=== PATIENT | male | born 1955 | race Caucasian/White ===

== ENCOUNTER → 2017-12-03 15:19 | Outpatient (CLI) | payer MEDICAID, SELFPAY ==
[2017-12-03 16:20] LABS: Abs Immature Grans 0.03 k/cumm (0.0-0.09); Absolute Basophil Count 0.04 k/cumm (0.0-0.2); Absolute Lymphocyte Count 3.13 k/cumm (1.2-3.4); Absolute Monocyte Count 0.88 k/cumm (0.11-0.7); Absolute Neutrophil Count 5.21 k/cumm (1.2-6.7); Basophils % 0.4; Eosinophils % 3.1; HCT 43.6 % (40.0-50.0); HGB 14.9 g/dL (13.5-17.5); Immature Grans % 0.3; Lymphocytes % 32.6; Mean Corp. HGB Concentration 34.2 g/dL (32.0-36.0); Mean Corpuscular Hemoglobin 32.1 pg (27.0-33.0); Mean Platelet Volume 9.8 fL (8.0-11.0); Monocytes % 9.2; Neutrophils % 54.4; Platelet Count 252 x1000/uL (130-400); RBC 4.64 m/cumm (4.50-6.00); RBC Distribution Width 15.2 % (11.8-14.1); White Blood Cell Count 9.59 k/cumm (4.4-10.8)
[2017-12-03 16:51] LABS: ALT 24 U/L (12-78); AST 22 U/L (15-37); Albumin 4.5 g/dL (3.4-5.0); Alkaline Phosphatase 89 U/L (46-116); Anion Gap 14.4 mmol/L (3-11); BUN 19 mg/dL (7-18); Bilirubin, Total 0.6 mg/dL (0.2-1.0); CO2 21.6 mmol/L (21.0-32.0); Chloride 102 mmol/L (98-107); Estimated GFR 44.02 (mL/min/1.73m2); Glucose 131 mg/dL (70-100); Potassium 4.1 mmol/L (3.5-5.1); Sodium 138 mmol/L (136-145); Total Protein 7.8 g/dL (6.4-8.2)
[2017-12-03 17:31] LABS: ESR 22 MM/HR (1-20)
== END ==
PROVIDERS: PCP Internal Medicine; Visit Provider Internal Medicine
DX: K65.1 Peritoneal abscess (principal); I10 Essential (primary) hypertension
CPT/HCPCS: 36415; 80053; 85652; 85025

== ENCOUNTER 2019-12-17 19:05 | Outpatient (REF) | payer SELFPAY ==
[2019-12-17 19:50] LABS: CREATININE 1.67 mg/dL (0.70-1.30); Estimated GFR 41.63 (mL/min/1.73m2); Potassium 4.8 mmol/L (3.5-5.1)
[2019-12-17 20:09] LABS: Hemoglobin A1C 5.6 % (3.8-5.6)
== END 2019-12-17 19:25 ==
LOC: LBN 19:05
PROVIDERS: PCP Nurse Practitioner; Visit Provider Nurse Practitioner
DX: I10 Essential (primary) hypertension (principal); Z13.1 Encounter for screening for diabetes mellitus
CPT/HCPCS: 82565; 83036; 84132

== ENCOUNTER 2020-02-22 18:21 | Inpatient (IN) | payer MEDICAID, SELFPAY ==
[2020-02-22 18:32] VITALS: BP 144/93; PULSE 117; RESP 20; TEMP 36.1; O2SAT 96
--- NOTE | 2020-02-22 18:53 | DI.CT_ITS ---
EXAM: CT ABDOMEN PELVIS WO CLINICAL HISTORY: Lower abd pain TECHNIQUE: COMPARISON: CT ABD PELVIS WO CONTRAST from 04/27/2017 FINDINGS: CT examination of the abdomen and pelvis was performed oral contrast administration. Images obtained through the lung bases show some apparent atelectasis or scarring in the left lung base. There is probable hepatic steatosis. The liver has mildly nodular contour raising the possibility of cirrhosis. No biliary dilatation. There does appear to be cholelithiasis. Pancreas grossly unrema rkable. Mild enlargement of a celiac lymph node at about 20 millimeters. Spleen is unremarkable in appearance. Abdominal aorta is of normal diameter. No significant abdominal wall hernia. No retroperitoneal adenopathy identified. Adrenals appear normal bilaterally. There is tiny nonobst ructing left renal calculus. Probable bilateral renal cortical scarring and cortical thinning. No h ydronephrosis. Urinary bladder is nearly empty. Appendix is normal. There is no gross bowel dilatation to suggest obstruction. There is marked wall thickening long segment of the sigmoid colon with marked associated pericolonic fat stranding and in creased radiodensity in the associated mesentery. There are some small gas collections in the mesent cathy suggesting a localized perforation. No free air in the peritoneal cavity. No gross abscess form ation at this time. IMPRESSION: Findings consistent with acute diverticulitis of the sigmoid colon with apparent locally contained sm all gas collections in the adjacent mesentery. No abscess formation or obstruction. RADIATION DOSE DELIVERED: 1,666.62mGy.cm Total DLP
--- NOTE | 2020-02-22 18:54 | ED.GENADUL_ITS ---
Discharge Plan Disposition Patient Disposition: [facility] INPATIENT Condition: Improving Discharge Details Clinical Impression: Diverticulitis of sigmoid colon Primary Care Provider: Ingrid Joya ED Provider: Syed Esteban Home Meds and New Rx's Prescriptions: No Action lisinopril 40 mg tablet 40 mg PO DAILY Qty: 90 RF: 3 pseudoephedrine HCl [Sudafed 12 Hour] 120 MG tablet extended release 120 mg PO PRN PRNRF: 0 naproxen sodium [Aleve] 220 MG capsule 3 tab PO PRN PRNRF: 0 Medical Decision Making 64-year-old male presents from home. 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 Since that time has been constipated & has had diffuse, constant pain from his umbilicus to his pelvis. He arrives to the ER afebrile but tachycardic and in some pain. He has diffuse abdominal tenderness on exam and defers a rectal exam. D ifferential diagnosis includes ileus, bowel obstruction, diverticulitis, perforated ulcer. Patient IV access established, screening labs obtained he is referred for CT images. Patient's renal function has progressively worsened over time of today's BUN is 22 with creatinine of 2.0 and a GFR of 32. His white count is elevated at 16 with left shift present. CT reveals acute sigmoid diverticulitis without evidence of perforation. Patient's pain improved following administration of a single aliquot of hydromorphone. Given his acute renal insufficiency, parenteral pain med requirement, and had acute diverticulitis, will admit to Dr. Butts's service. Given the patient's poor renal function, I feel Zosyn is a reasonable antibiotic choice with the potential for the patient to transition to oral Augmentin. HPI General Mode of arrival: ambulatory . Date/Time Provider Initiated Documentation: 02/22/20 18:25 . Limitations to Documentation: no limitations . Information obtained by: patient . History of Present Illness 64 year old M presents to the emergency department with the chief complaint of Lower abdominal pain since ., described as moderate and severe, Quality is described as dull and constant, and is localized to the abdomen. Patient reports no radiation. Patient started experiencing this day(s) and it has been constant. Rest improves symptom(s), Movement worsens symptoms . Patient notes other (Constipated); denies fever/chills and loss of appetite. Patient did receive the following treatments prior to arrival, none Related Data Home Medications Medication Instructions Recorded Confirmed naproxen sodium [Aleve] 3 tab PO PRN PRN 04/27/17 02/22/20 pseudoephedrine HCl [Sudafed 12 120 mg PO PRN PRN 04/27/17 02/22/20 Hour] lisinopril 40 mg tablet 40 mg PO DAILY #90 tab-cap 09/15/19 02/22/20 Previous Rx's Medication Instructions Recorded lisinopril 40 mg tablet 40 mg PO DAILY #90 tab-cap 09/15/19 Allergies Allergy/AdvReac Type Severity Reaction Status Date / Time pollen extracts Allergy Mild runny Verified 02/22/20 17:52 nose, watery eyes General Stated Complaint: Abd Prob CECY: 3 Review of Systems Narrative: Urgency to urination. 6 systems reviewed and otherwise negative [facility] Medical History History of tobacco use Intra-abdominal abscess (06/14/17) No treatment for this presently. Loculated pleural effusion (06/14/17) Retroperitoneal abscess (06/14/17) Family History Family history Diabetes CAD (coronary artery disease) Mother , age 83 Brain tumor Father , age 87 Asthma Sister No problems noted. Sister No problems noted. Sister No problems noted. Brother No problems noted. Daughter No problems noted. Daughter No problems noted. Maternal Grandfather , age 97 pneumonia No problems noted. Paternal Grandfather , age 78 blood clot No problems noted. Maternal Grandmother , age 98 No problems noted. Paternal Grandmother , age 67 blood clot No problems noted. Son No problems noted. Social History Smoking/Tobacco Use Status: Current-Occasional Tobacco Type: cigars Alcohol Intake: current Alcohol Intake frequency: a few times a month Alcohol type: beer and hard liquor Drug use: Never Caregiver/Support person: No Household members: family Housing: house Communication Needs: None Pets and animals: No Sexually active: Yes Do you think of yourself as: straight/heterosexual Current gender identity: male What is your relationship status?: How often do you talk on the phone with friends or family?: decline to answer How often do you get together with friends or relatives?: three or more times per week How often do you attend mormon or confucianism services?: decline to answer Do you belong to any clubs or organized social groups?: decline to answer Panel score (0-1 are the most socially isolated patients): 1 What type of physical activity do you participate in: walking Frequency: 5-6 times per week Sheree/Shinto: None Special sheree needs: No Seatbelt use: sometimes Helmet use: Yes Helmet use: sometimes Drive intox or ride w/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 Pleasant, well groomed, interactive. HEAD: Normocephalic, atraumatic ENT: Mucous membranes moist, oropharynx unremarkable, External ear exam unremarkable EYES: PERRL, EOMI NECK: Full ROM, no ANTHONY, no menigismus CHEST/RESP: Nontender, clear to auscultation bilateral, no wheeze/rhonchi/rales CARDIOVASCULAR: Regular and slightly tachycardic, no murmur, rub robby. 2+ Rad pulse bilateral ABDOMEN: Distended, diffusely tender with mild rebound present, no mass. +Bowel sounds EXT: Full ROM, 1-2+ edema, no rash Neuro: Grossly normal neurologic exam, conversant, interactive. Psych: Speech fluent, thoughts congruent, affect normal
[2020-02-22 18:58] LABS: Abs Immature Grans 0.08 10^3/uL (0.0-0.06); Absolute Basophil Count 0.03 10^3/uL (0.0-0.2); Absolute Eosinophil Count 0.02 10^3/uL (0.0-0.7); Absolute Lymphocyte Count 1.19 10^3/uL (1.2-3.4); Absolute Monocyte Count 0.93 10^3/uL (0.1-0.8); Absolute Neutrophil Count 13.83 10^3/uL (1.2-6.7); Basophils % 0.2; Eosinophils % 0.1; HCT 42.6 % (40.0-50.0); HGB 14.5 g/dL (13.5-17.5); Immature Grans % 0.5; Lymphocytes % 7.4; MCH 33.3 pg (27.0-33.0); MCV 97.9 fL (80-95); MPV 9.2 fL (8.0-11.0); Monocytes % 5.8; Nucleated RBC 0 %; Platelet Count 240 10^3/uL (130-400); RBC 4.35 10^6/uL (4.36-5.78); RDW 13.5 % (11.8-14.1); RDW-SD 49.1 fL; WBC 16.08 10^3/uL (4.4-10.8)
[2020-02-22] MEDS: Normal Saline 1,000 ML 125 ML IV (19:01)
[2020-02-22 19:11] LABS: ALT 16 U/L (16-63); AST 12 U/L (15-37); Albumin 3.4 g/dL (3.4-5.0); Alkaline Phosphatase 77 U/L (46-116); Anion Gap 8.6 mmol/L (3-11); BUN 22 mg/dL (7-18); Bilirubin, Total 0.9 mg/dL (0.2-1.0); CO2 22.4 mmol/L (21.0-32.0); CREATININE 2.06 mg/dL (0.70-1.30); Calcium 9.1 mg/dL (8.5-10.1); Chloride 103 mmol/L (98-107); Estimated GFR 32.67 (mL/min/1.73m2); Glucose 147 mg/dL (74-106); Lipase 83 U/L (73-393); Magnesium 1.8 mg/dL (1.8-2.4); Potassium 3.9 mmol/L (3.5-5.1); Sodium 134 mmol/L (136-145); Total Protein 7.8 g/dL (6.4-8.2)
[2020-02-22] MEDS: Omnipaque 350 MG/ML 50 ML BTL IJ (19:22)
[2020-02-22] MEDS: Breeza Beverage 473 ML BTL PO ×2 (19:22→19:23)
[2020-02-22] MEDS: HYDROmorphone 2 MG/ML VIAL 0.5 MG IVP ×2 (19:32→21:55)
[2020-02-22 20:39] VITALS: BP 108/62; PULSE 99; RESP 16; TEMP 37.5; O2SAT 94
--- NOTE | 2020-02-22 21:16 | DI.VRAD_ITS ---
PROCEDURE INFORMATION: Exam: CT Abdomen And Pelvis Without Contrast Exam date and time: 02/22/2020 7:15 PM Age: 64 years old Clinical indication: Abdominal pain; Localized; Patient HX: Pain since 02/17, lower abdomen TECHNIQUE: Imaging protocol: Computed tomography of the abdomen and pelvis without contrast. COMPARISON: CT ABD PELVIS WO CONTRAST 27/04/2017 13:22 FINDINGS: Lungs: Reticular scarring versus atelectasis left lower lobe. Liver: Hepatic steatosis. Gallbladder and bile ducts: Cholelithiasis. Pancreas: Normal. No ductal dilation. Spleen: Normal. No splenomegaly. Adrenal glands: Normal. No mass. Kidneys and ureters: Bilateral perirenal fat infiltration. Left nephrolithiasis. Stomach and bowel: Contrast distended stomach. Diverticulitis of the sigmoid colon. Infiltration of the sigmoid pericolonic fat and pelvic side wall. Appendix: No evidence of appendicitis. Intraperitoneal space: Infiltration of the mesenteric fat. No free air. Vasculature: Unremarkable. No abdominal aortic aneurysm. Lymph nodes: Shoddy retroperitoneal adenopathy. Urinary bladder: Contracted bladder. Reproductive: Unremarkable as visualized. Bones/joints: Multilevel degenerative changes of the thoracic and lumbar spine. Soft tissues: Umbilical hernia. IMPRESSION: 1. Acute diverticulitis of the sigmoid colon. 2. Multiple additional findings as discussed above. Dictated and Authenticated by: Reba Holloway MD. Ordering:RICKI Lynch MD
--- NOTE | 2020-02-22 21:42 | W.PM.HP.N ---
Date of service: 02/22/20 Time of Service: 21:42 Assessment and Plan Assessment and plan (1) Diverticulitis of sigmoid colon: Status: Acute Assessment and plan: Diverticulitis. Will treat with Zosyn, bowel rest, IVF and prn analgesics. Will hold TRAM until clear that hemodynamics not unstable. History of Present Illness History of Present Illness Chief Complaint: abdominal pain Narrative: 64 male reports 3-4 days lower abd pain. Continuous, no radiation, no palliative or provocative factors. Does endorse a degree of anorexia. No BM since. In ER temp 37.5 noted, lower abd tenderness, white count [address] showing tortuous sigmoid with diverticulitis. Received Dilaudid with good relief and ordered for dose Zosyn. Admitted for further management. Review of Systems All systems reviewed & are unremarkable except as noted in HPI and below PFSH Medical History History of tobacco use Intra-abdominal abscess (06/14/17) No treatment for this presently. Loculated pleural effusion (06/14/17) Retroperitoneal abscess (06/14/17) Family History Family history Diabetes CAD (coronary artery disease) Mother , age 83 Brain tumor Father , age 87 Asthma Sister No problems noted. Sister No problems noted. Sister No problems noted. Brother No problems noted. Daughter No problems noted. Daughter No problems noted. Maternal Grandfather , age 97 pneumonia No problems noted. Paternal Grandfather , age 78 blood clot No problems noted. Maternal Grandmother , age 98 No problems noted. Paternal Grandmother , age 67 blood clot No problems noted. Son No problems noted. Social History Smoking/Tobacco Use Status: Current-Occasional Tobacco Type: cigars Alcohol Intake: current Alcohol Intake frequency: a few times a month Alcohol type: beer and hard liquor Drug use: Never Caregiver/Support person: No Household members: family Housing: house Communication Needs: None Pets and animals: No Sexually active: Yes Do you think of yourself as: straight/heterosexual Current gender identity: male What is your relationship status?: How often do you talk on the phone with friends or family?: decline to answer How often do you get together with friends or relatives?: three or more times per week How often do you attend restoration or zoroastrianism services?: decline to answer Do you belong to any clubs or organized social groups?: decline to answer Panel score (0-1 are the most socially isolated patients): 1 What type of physical activity do you participate in: walking Frequency: 5-6 times per week Sheree/Restoration: None Special sheree needs: No Seatbelt use: sometimes Helmet use: Yes Helmet use: sometimes 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 Do you feel safe at home: Yes Do you feel safe in your relationship?: Yes Meds Home Medications and Allergies Home Medications Medication Instructions Recorded Confirmed Type naproxen sodium [Aleve] 3 tab PO PRN PRN 04/27/17 02/22/20 History pseudoephedrine HCl [Sudafed 12 120 mg PO PRN PRN 04/27/17 02/22/20 History Hour] lisinopril 40 mg tablet 40 mg PO DAILY #90 tab-cap 09/15/19 02/22/20 Rx Allergies Allergy/AdvReac Type Severity Reaction Status Date / Time pollen extracts Allergy Mild runny Verified 02/22/20 17:52 nose, watery eyes Exam Narrative Exam Narrative: 108/62, 99, 37.5, 16, 94 & RA. HEENT unremarkable; neck supple; lungs clear; heart RRR; abdomen +BS, some guarding, fairly diffuse tenderness but maximal suprapubic with some rebound; neuro Ox3, nonfocal Results Labs Result diagrams: 02/22/20 18:50 02/22/20 18:50 Labs: Laboratory Results - last 24 hr 02/22/20 02/22/20 02/22/20 18:50 18:50 18:50 WBC 16.08 H RBC 4.35 L Hgb 14.5 Hct 42.6 MCV 97.9 H MCH 33.3 H MCHC 34.0 RDW 13.5 Plt Count 240 MPV 9.2 Immature Gran % 0.5 Neutrophils % 86.0 Lymphocytes % 7.4 Monocytes % 5.8 Eosinophils % 0.1 Basophils % 0.2 Nucleated RBC % 0 Absolute Neutrophils 13.83 H Absolute Lymphocytes 1.19 L Absolute Monocytes 0.93 H Absolute Eosinophils 0.02 Absolute Basophils 0.03 VBG Lactate 1.0 Sodium 134 L Potassium 3.9 Chloride 103 Carbon Dioxide 22.4 Anion Gap 8.6 BUN 22 H Creatinine 2.06 H Estimated GFR/1.73 m2 32.67 Glucose 147 H Calcium 9.1 Magnesium 1.8 Total Bilirubin 0.9 AST 12 L ALT 16 Alkaline Phosphatase 77 Total Protein 7.8 Albumin 3.4 Lipase 83 Last Vital Signs Temp 37.5 C 02/22/20 20:39 Pulse 99 H 02/22/20 20:39 Resp 16 02/22/20 20:39 BP 108/62 02/22/20 20:39 Pulse Ox 94 02/22/20 20:39 COVID-19 Screening Have you,or household,traveled outside [place] in last 14 days?: No
[2020-02-22] MEDS: PIPERACILLIN/TAZO 3.375 GM in Normal Saline 50 ML IVPB (21:58)
[2020-02-22 21:59] VITALS: BP 133/79; PULSE 104; RESP 18; TEMP 37; O2SAT 94
[2020-02-22 22:10] LABS: Bilirubin Negative (Negative); Blood Trace-intact (Negative); Clarity Clear (Clear); Glucose Negative (Negative); Ketones Negative (Negative); Leukocyte Esterase Negative (Negative); Nitrite Negative (Negative); Specific Gravity >= 1.030 (1.005-1.025)
[2020-02-22 22:12] LABS: Bacteria Rare HPF (Negative); C & S Indicated? No/Sq. Contamination; Casts Negative LPF (Negative); Crystals Negative HPF (Negative); Epithelial Cells Moderate HPF (Negative); Mucus Negative (Negative); RBC 0-2 HPF (0-2); WBC 0-2 HPF (0-5)
[2020-02-22 22:42] VITALS: BP 89/56; PULSE 98; RESP 24; TEMP 37.4; O2SAT 93
[2020-02-22] MEDS: Lactated Ringers 1,000 ML 150 ML IV (23:24)
[2020-02-22] MEDS: Normal Saline Flush 10 ML SYR IVP (23:24)
[2020-02-22 23:26] VITALS: BP 110/60
[2020-02-23] MEDS: HYDROmorphone 2 MG/ML VIAL IVP ×3 (04:09→16:55)
[2020-02-23] MEDS: PIPERACILLIN/TAZO 3.375 GM in Normal Saline 50 ML IVPB ×4 (04:10→22:48)
[2020-02-23] MEDS: ACETAMINOPHEN 1,000 MG/100 ML BTL 400 MG IVPB (05:09)
[2020-02-23] MEDS: Lactated Ringers 1,000 ML 150 ML IV ×2 (06:02→19:54)
[2020-02-23 06:48] LABS: HCT 37.1 % (40.0-50.0); HGB 12.3 g/dL (13.5-17.5); MCH 33.1 pg (27.0-33.0); MCHC 33.2 % (32.0-36.0); MCV 99.7 fL (80-95); MPV 9.4 fL (8.0-11.0); Platelet Count 205 10^3/uL (130-400); RBC 3.72 10^6/uL (4.36-5.78); RDW 13.6 % (11.8-14.1); RDW-SD 50.1 fL; WBC 13.47 10^3/uL (4.4-10.8)
[2020-02-23 07:05] LABS: Anion Gap 6.4 mmol/L (3-11); BUN 22 mg/dL (7-18); CO2 24.6 mmol/L (21.0-32.0); CREATININE 2.07 mg/dL (0.70-1.30); Calcium 8.4 mg/dL (8.5-10.1); Chloride 104 mmol/L (98-107); Estimated GFR 32.49 (mL/min/1.73m2); Glucose 121 mg/dL (74-106); Potassium 3.7 mmol/L (3.5-5.1); Sodium 135 mmol/L (136-145)
[2020-02-23 08:16] VITALS: BP 87/50; PULSE 83; RESP 17; TEMP 36.8; O2SAT 97
[2020-02-23] MEDS: Normal Saline 1,000 ML 1000 ML IV (08:48)
[2020-02-23 10:25] VITALS: BP 95/60
[2020-02-23 12:45] VITALS: BP 118/72
[2020-02-23 13:09] LABS: COVID-19 RT-PCR UVMMC Result Negative (Negative)
--- NOTE | 2020-02-23 14:13 | PGE_ITS ---
Date of Service Date of service: 02/23/20 Time of Service: 14:13 Assessment and Plan Assessment and plan (1) Diverticulitis of sigmoid colon: Status: Acute Assessment and plan: + microperforation Cont Zosyn WBC count improving (2) Essential hypertension: Status: Chronic Assessment and plan: BP has been in the 80's to 90's range No antihypertensives. (3) CLARITA (acute kidney injury): Status: Acute Assessment and plan: On LR at 150ml/hr Gave 1L NS bolus this AM OK to have full liquid diet as tolerated. Monitor. Subjective Subjective Patient reports: feels better, bowel movement and afebrile; denies blood in stool, nausea, vomiting and shortness of breath Interval history since last seen: Does feel like he could drink fluids. Exam Const General: cooperative and no acute distress Nutritional Appearance: obese Orientation: alert and oriented x3 Resp Effort & Inspection: normal respiratory effort Auscultation: clear to auscultation bilaterally Cardio Jugular venous pressure: no JVD Rate: regular rate Rhythm: regular rhythm Heart Sounds: S1 normal and S2 normal GI Palpation: soft and tender suprapubicly Auscultation: hypoactive bowel sounds Extrem General: no calf tenderness and edema Laterality: bilateral (nonpitting) Objective Last Vital Signs Temp 36.8 C 02/23/20 08:16 Pulse 83 02/23/20 08:16 Resp 17 02/23/20 08:16 BP 95/60 L 02/23/20 10:25 Pulse Ox 97 02/23/20 08:16 Laboratory Results - last 24 hr 02/22/20 02/22/20 02/22/20 18:50 18:50 18:50 WBC 16.08 H RBC 4.35 L Hgb 14.5 Hct 42.6 MCV 97.9 H MCH 33.3 H MCHC 34.0 RDW 13.5 Plt Count 240 MPV 9.2 Immature Gran % 0.5 Neutrophils % 86.0 Lymphocytes % 7.4 Monocytes % 5.8 Eosinophils % 0.1 Basophils % 0.2 Nucleated RBC % 0 Absolute Neutrophils 13.83 H Absolute Lymphocytes 1.19 L Absolute Monocytes 0.93 H Absolute Eosinophils 0.02 Absolute Basophils 0.03 VBG Lactate 1.0 Sodium 134 L Potassium 3.9 Chloride 103 Carbon Dioxide 22.4 Anion Gap 8.6 BUN 22 H Creatinine 2.06 H Estimated GFR/1.73 m2 32.67 Glucose 147 H Calcium 9.1 Magnesium 1.8 Total Bilirubin 0.9 AST 12 L ALT 16 Alkaline Phosphatase 77 Total Protein 7.8 Albumin 3.4 Lipase 83 Urine Color Urine Clarity Urine pH Ur Specific [place] Urine Protein Urine Ketones Urine Blood Urine Nitrite Urine Bilirubin Urine Urobilinogen Ur Leukocyte Esterase Urine RBC Urine WBC Ur Epithelial Cells Urine Crystals Urine Bacteria Urine Casts Urine Mucus Ur Culture Indicated? Urine Glucose COVID-19 PCR Nasopharyn COVID-19 PCR Ref Test Perform Site 02/22/20 02/22/20 02/23/20 21:55 22:00 06:33 WBC RBC Hgb Hct MCV MCH MCHC RDW Plt Count MPV Immature Gran % Neutrophils % Lymphocytes % Monocytes % Eosinophils % Basophils % Nucleated RBC % Absolute Neutrophils Absolute Lymphocytes Absolute Monocytes Absolute Eosinophils Absolute Basophils VBG Lactate Sodium 135 L Potassium 3.7 Chloride 104 Carbon Dioxide 24.6 Anion Gap 6.4 BUN 22 H Creatinine 2.07 H Estimated GFR/1.73 m2 32.49 Glucose 121 H Calcium 8.4 L Magnesium Total Bilirubin AST ALT Alkaline Phosphatase Total Protein Albumin Lipase Urine Color Yellow Urine Clarity Clear Urine pH 6.0 Ur Specific [place] >= 1.030 H Urine Protein 100 H Urine Ketones Negative Urine Blood Trace-intact H Urine Nitrite Negative Urine Bilirubin Negative Urine Urobilinogen 1.0 H Ur Leukocyte Esterase Negative Urine RBC 0-2 Urine WBC 0-2 Ur Epithelial Cells Moderate Urine Crystals Negative Urine Bacteria Rare Urine Casts Negative Urine Mucus Negative Ur Culture Indicated? No/sq. contamination Urine Glucose Negative COVID-19 PCR Negative Nasopharyn COVID-19 PCR Not Applicable Ref Test Perform Site [facility] 02/23/20 06:33 WBC 13.47 H RBC 3.72 L Hgb 12.3 L D Hct 37.1 L MCV 99.7 H MCH 33.1 H MCHC 33.2 RDW 13.6 Plt Count 205 MPV 9.4 Immature Gran % Neutrophils % Lymphocytes % Monocytes % Eosinophils % Basophils % Nucleated RBC % Absolute Neutrophils Absolute Lymphocytes Absolute Monocytes Absolute Eosinophils Absolute Basophils VBG Lactate Sodium Potassium Chloride Carbon Dioxide Anion Gap BUN Creatinine Estimated GFR/1.73 m2 Glucose Calcium Magnesium Total Bilirubin AST ALT Alkaline Phosphatase Total Protein Albumin Lipase Urine Color Urine Clarity Urine pH Ur Specific [place] Urine Protein Urine Ketones Urine Blood Urine Nitrite Urine Bilirubin Urine Urobilinogen Ur Leukocyte Esterase Urine RBC Urine WBC Ur Epithelial Cells Urine Crystals Urine Bacteria Urine Casts Urine Mucus Ur Culture Indicated? Urine Glucose COVID-19 PCR Nasopharyn COVID-19 PCR Ref Test Perform Site
[2020-02-23 15:27] VITALS: BP 114/68; PULSE 93; RESP 24; TEMP 37.1; O2SAT 98
[2020-02-23] MEDS: Normal Saline Flush 10 ML SYR IVP ×3 (16:36→22:48)
--- NOTE | 2020-02-23 16:37 | INITIAL_ITS ---
- If Service Date Differs Date of service: 02/23/20 Time of Service: 11:30 Care Management Initial Assess REASON FOR HOSPITALIZATION:: Diverticulitis PAST MEDICAL HISTORY/PAST SURGICAL HISTORY:: History of tobacco use. Intra- abdominal abscess (. Loculated pleural effusion (06/14/17). Retroperitoneal abscess (06/14/17) PREVIOUS FUNCTIONAL STATUS/SOCIAL/FAMILY SUPPORTS:: Daniel lives with his sister in [place], [place]. 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 He states he is independent at baseline with all his needs. CURRENT FUNCTIONAL STATUS:: Daniel is not engaged at this time with CM he is having discomfort. He states he did not plan to be in the hospital he was working [facility] yesterday afternoon when his pain started. ADVANCE DIRECTIVES:: None on file is willing to review the forms, CM to provide Has patient been provided with info about the portal/API?: Yes Did the patient sign up for the portal?: No CODE STATUS:: Full Code INSURANCE COVERAGE / FINANCIAL ISSUES:: No insurance, patient states his income is over the guideline for Medicaid. CM will obtain a consent for community connections to assist with insurance needs. CURRENT HOME/COMMUNITY SERVICES/EQUIPMENT:: No current services PRIMARY CARE PHYSICIAN:: Ingrid Joya POTENTIAL DISCHARGE NEEDS:: Follow up with primary care, assistance with insurance, and medications at time of discharge. PATIENT/FAMILY EDUCATION NEEDS:: Discharge education, limitations and follow up plan of care including ask me three and self management. ANTICIPATED BARRIERS TO DISCHARGE:: Access to care status post hospital discharge, medications and outpatient treatment. Daniel will need assistance with navigating insurance and eval of prescription cost prior to discharge. TRANSPORTATION:: Via private car with family at time of discharge PLAN:: Daniel is receiving IV abx, and fluids. He is also rec. IV pain management and in need of close monitoring. He will be discharged home when medically ready his WBC has improved today. CM to continue to assess for ongong discharge needs, will obtain consent for insurance navigator and fax to [employer].
[2020-02-24] VITALS: BP 100/65; PULSE 104; RESP 24; TEMP 37.9; O2SAT 93
[2020-02-24] MEDS: Normal Saline Flush 10 ML SYR IVP (00:25)
[2020-02-24] MEDS: HYDROmorphone 2 MG/ML VIAL IVP (00:25)
[2020-02-24] MEDS: PIPERACILLIN/TAZO 3.375 GM in Normal Saline 50 ML IVPB ×2 (03:33→10:35)
[2020-02-24 07:08] LABS: Abs Immature Grans 0.07 10^3/uL (0.0-0.06); Absolute Basophil Count 0.03 10^3/uL (0.0-0.2); Absolute Eosinophil Count 0.07 10^3/uL (0.0-0.7); Absolute Lymphocyte Count 1.51 10^3/uL (1.2-3.4); Absolute Monocyte Count 0.66 10^3/uL (0.1-0.8); Basophils % 0.3; Eosinophils % 0.6; HCT 36.6 % (40.0-50.0); HGB 12.5 g/dL (13.5-17.5); Immature Grans % 0.6; Lymphocytes % 13.2; MCH 33.3 pg (27.0-33.0); MCHC 34.2 % (32.0-36.0); MCV 97.6 fL (80-95); MPV 9.8 fL (8.0-11.0); Monocytes % 5.8; Neutrophils % 79.5; Nucleated RBC 0 %; Platelet Count 204 10^3/uL (130-400); RBC 3.75 10^6/uL (4.36-5.78); RDW 13.6 % (11.8-14.1); RDW-SD 48.6 fL; WBC 11.45 10^3/uL (4.4-10.8)
[2020-02-24 07:22] LABS: ALT 8 U/L (16-63); AST 12 U/L (15-37); Albumin 2.7 g/dL (3.4-5.0); Alkaline Phosphatase 58 U/L (46-116); Anion Gap 8.9 mmol/L (3-11); BUN 21 mg/dL (7-18); CO2 23.1 mmol/L (21.0-32.0); CREATININE 1.77 mg/dL (0.70-1.30); Calcium 8.5 mg/dL (8.5-10.1); Chloride 102 mmol/L (98-107); Estimated GFR 38.92 (mL/min/1.73m2); Glucose 94 mg/dL (74-106); Potassium 3.8 mmol/L (3.5-5.1); Sodium 134 mmol/L (136-145); Total Protein 6.9 g/dL (6.4-8.2)
[2020-02-24 07:35] VITALS: BP 101/60; PULSE 90; RESP 20; TEMP 36.8; O2SAT 93
--- NOTE | 2020-02-24 09:06 | DSE_ITS ---
Date of service: 02/24/20 Time of Service: 12:59 DS: Diagnosis Discharge Diagnosis (1) Diverticulitis of sigmoid colon: Status: Acute (2) Essential hypertension: Status: Chronic (3) CLARITA (acute kidney injury): Status: Acute Discharge Plan Disposition Patient Disposition: HOME Condition: Improving Discharge Details Reason For Visit: DIVERTICULITIS Admit Date/Time: 02/22/20 21:51 Admit Provider: Meir Butts Attending Provider: Meir Butts [facility] Hospital Course: This is a 64 male who reported 3-4 days lower abd pain; Continuous, no radiation, no palliative or provocative factors. He did endorse a degree of anorexia. No BM since onset of pain. In the ER temp 37.5 noted, lower abd tenderness, white count [address] showing tortuous sigmoid with diverticulitis. Received Dilaudid with good relief. Zosyn initiated. In-house radiologist reading of the CT abd/pelvis the morning after admission indicated microperforation. Gen surgery suggested continuing current treatment. No indication of surgical intervention. His WBC count improved from 16.08 to 11.45 His pain improved with hydrocodone 7.5mg po prn. He will d/c on Augmentin 875mg po BID. Follow up with PCP in 1-2 weeks. His lisinopril should be held until PCP follow up due to low blood pressure readings currently. Home Meds and New Rx's Prescriptions: New hydrocodone-acetaminophen 7.5-325 mg Tablet 1 tab PO Q4H PRN PRNQty: 12 RF: 0 amoxicillin-pot clavulanate [Augmentin] 875-125 mg tablet 1 tab PO BID Qty: 20 RF: 0 Continued lisinopril 40 mg tablet 40 mg PO DAILY Qty: 90 RF: 3 pseudoephedrine HCl [Sudafed 12 Hour] 120 MG tablet extended release 120 mg PO PRN PRNRF: 0 naproxen sodium [Aleve] 220 MG capsule 3 tab PO PRN PRNRF: 0 Discharge Instructions Instructions: Diverticulitis (GEN) Activity:: Activity as Tolerated Equipment/Supplies:: No Equipment Needed Diet:: Low Sodium Discharge Orders Discharge Orders: Discharge Order (Routine); Ordered 02/24/20 Ordered By: Jose Lopez DS: Summary Status at Discharge Functional status at discharge: independent ambulation Overall status at discharge: patient is progressing back to baseline Mental Status: mental status grossly normal Speech and Movement: speech and movement normal Mood: congruent mood Affect: normal affect Exam Const General: cooperative and acute distress mild (lower abd discomfort) Eyes Sclera: sclerae normal EOM: EOM intact bilaterally Resp Effort & Inspection: normal respiratory effort Auscultation: clear to auscultation bilaterally Cardio Rate: regular rate Rhythm: regular rhythm Heart Sounds: S1 normal and S2 normal GI Inspection: large pannus and obesity Palpation: soft and tender suprapubicly; with no rebound tenderness Auscultation: normal bowel sounds Extrem General: no pedal edema and no calf tenderness Psych Mental Status: mental status grossly normal Speech and Movement: speech and movement normal Mood: congruent mood Affect: normal affect DS: Data Vitals/I&O Vitals and I&O: Vital Signs Temperature 36.8 C 02/24/20 07:35 Temperature Source Tympanic 02/24/20 07:35 Pulse 90 02/24/20 07:35 Pulse Rhythm Regular 02/24/20 07:35 Respiratory Rate 20 02/24/20 07:35 Respiratory Effort 02/24/20 07:35 Respiratory Depth Normal 02/24/20 07:35 Respiratory Pattern Normal 02/24/20 07:35 Blood Pressure 101/60 02/24/20 07:35 Blood Pressure Position Sitting 02/22/20 18:32 Pulse Oximetry 93 02/24/20 07:35 Oxygen Delivery Method Room Air 02/24/20 07:35 Oxygen Flow Rate 0 02/24/20 07:35 Pain Level 0 02/24/20 07:35 Intake & Output 02/23/20 02/23/20 02/24/20 11:59 23:59 11:59 Intake Total 2607.5 / 3535.0 927.5 / 3535.0 400 / 400 Output Total 290 / 740 450 / 740 Balance 2317.5 / 2795.0 477.5 / 2795.0 400 / 400 Intake: IV 2607.5 / 3295.0 687.5 / 3295.0 Oral 240 / 240 400 / 400 Output: Urine 290 / 740 450 / 740 Other: Urine Color Yellow Light Pura Yellow Urine Appearance Clear Clear Clear Urine Odor Normal Normal None Comment VOIDS IN BR INDEP. UP AT THIS TIME AND VOIDED AND HAD A DIARRHEA STOOL WHICH PER PT IS HIS NORMAL. BOTH UNSEEN BY THIS PT Stool Size Moderate Moderate Stool Characteristics Liquid Liquid Voiding Methods Toilet Urinal Toilet Data Completed and Pending Labs on day of discharge: Labs from last 24 hours 02/24/20 02/24/20 02/22/20 06:30 06:30 22:00 WBC 11.45 H RBC 3.75 L Hgb 12.5 L Hct 36.6 L MCV 97.6 H MCH 33.3 H MCHC 34.2 RDW 13.6 Plt Count 204 MPV 9.8 Immature Gran % 0.6 Neutrophils % 79.5 Lymphocytes % 13.2 Monocytes % 5.8 Eosinophils % 0.6 Basophils % 0.3 Nucleated RBC % 0 Absolute Neutrophils 9.10 H Absolute Lymphocytes 1.51 Absolute Monocytes 0.66 Absolute Eosinophils 0.07 Absolute Basophils 0.03 Sodium 134 L Potassium 3.8 Chloride 102 Carbon Dioxide 23.1 Anion Gap 8.9 BUN 21 H Creatinine 1.77 H Estimated GFR/1.73 m2 38.92 Glucose 94 Calcium 8.5 Total Bilirubin 1.0 AST 12 L ALT 8 L Alkaline Phosphatase 58 Total Protein 6.9 Albumin 2.7 L COVID-19 PCR Negative Nasopharyn COVID-19 PCR Not Applicable Ref Test Perform Site [facility] Medical History History of tobacco use Intra-abdominal abscess (06/14/17) No treatment for this presently. Loculated pleural effusion (06/14/17) Retroperitoneal abscess (06/14/17) Family History Family history Diabetes CAD (coronary artery disease) Mother , age 83 Brain tumor Father , age 87 Asthma Sister No problems noted. Sister No problems noted. Sister No problems noted. Brother No problems noted. Daughter No problems noted. Daughter No problems noted. Maternal Grandfather , age 97 pneumonia No problems noted. Paternal Grandfather , age 78 blood clot No problems noted. Maternal Grandmother , age 98 No problems noted. Paternal Grandmother , age 67 blood clot No problems noted. Son No problems noted. Social History Smoking/Tobacco Use Status: Current-Occasional Tobacco Type: cigars Smoking risk assessment performed?: Yes Alcohol Intake: current Alcohol Intake frequency: a few times a month Alcohol type: beer and hard liquor Drug use: Never Caregiver/Support person: No Household members: family Housing: house Communication Needs: None Pets and animals: No Sexually active: Yes Do you think of yourself as: straight/heterosexual Current gender identity: male What is your relationship status?: How often do you talk on the phone with friends or family?: decline to answer How often do you get together with friends or relatives?: three or more times per week How often do you attend christianity or presybeterian services?: decline to answer Do you belong to any clubs or organized social groups?: decline to answer Panel score (0-1 are the most socially isolated patients): 1 What type of physical activity do you participate in: walking Frequency: 5-6 times per week Sheree/Anabaptist: None Special sheree needs: No Seatbelt use: sometimes Helmet use: Yes Helmet use: sometimes Drive intox or ride w/intox driver starting gate: No Do you feel safe at home: Yes Do you feel safe in your relationship?: Yes
[2020-02-24] MEDS: Lactated Ringers 1,000 ML 150 ML IV (09:11)
--- NOTE | 2020-02-24 13:58 | PDOC.CMDIS ---
- If Service Date Differs Date of service: 02/24/20 Time of Service: 13:58 LACE Index Scoring Tool - Questions: Length of Stay (in days): 3 Acuity (Admit via E.D.?): Yes E.D. Visits: 1 - Answers: Total Score: 7 Risk of Readmission: Low Risk Care Management Discharge Reason for Hospitalization: Diverticulitis Discharge Plan: Daniel is being discharged home today he will continue his oral abx and pain management as outpatient. CM faxed prescriptions to [facility] in [place] total cost of prescriptions 42.00 which he states he can afford. A referral was faxed to [facility] for follow up r/t his insurance. He states he is over qualified for Medicaid based on his income. He states he is comfortable with discharge home. Patient/Family Education Needs: Discharge education, limitations and follow up plan of care including ask me three and self management.
== END 2020-02-24 15:40 | disposition home or self-care (01) | DRG 392 ==
LOC: ER 22:21 → MS 22:40
PROVIDERS: Family Medicine; Admitting Provider General Practice; Emergency Provider Emergency Medicine; PCP Nurse Practitioner; Visit Provider General Practice
DX: K57.32 Diverticulitis of large intestine without perforation or abscess without bleeding (principal); N17.9 Acute kidney failure, unspecified; I10 Essential (primary) hypertension; F17.290 Nicotine dependence, other tobacco product, uncomplicated
CPT/HCPCS: 36415; 80048; 80053; 83690; 85027; 96361; 96365; 96375; 96376; 99222; 99232; 99239; 99285; U0003; 74176; 81003; 81015; 83605; 83735; 85025; J0131; J2543; Q9967

== ENCOUNTER 2020-03-29 02:53 | Outpatient (CLI) | payer MEDICAID, SELFPAY ==
[2020-03-29 12:41] LABS: Anion Gap 10.7 mmol/L (3-11); BUN 25 mg/dL (7-18); CO2 22.3 mmol/L (21.0-32.0); CREATININE 1.57 mg/dL (0.70-1.30); Calcium 8.7 mg/dL (8.5-10.1); Chloride 101 mmol/L (98-107); Glucose 181 mg/dL (74-106); Potassium 4.4 mmol/L (3.5-5.1); Sodium 134 mmol/L (136-145)
[2020-03-29 12:43] LABS: Bilirubin Negative (Negative); Blood Negative (Negative); Glucose Negative (Negative); Ketones Negative (Negative); Leukocyte Esterase Negative (Negative); Nitrite Negative (Negative); pH 5.5 (5-8)
[2020-03-29 12:44] LABS: Clarity Clear (Clear)
== END 2020-03-29 03:13 ==
PROVIDERS: Emergency Medicine; PCP Nurse Practitioner; Visit Provider Nurse Practitioner
DX: I10 Essential (primary) hypertension (principal); N18.9 Chronic kidney disease, unspecified
CPT/HCPCS: 36415; 80048; 81003

== ENCOUNTER 2020-08-16 02:31 | Outpatient (CLI) | payer MEDICAID, SELFPAY ==
[2020-08-16 13:37] LABS: Calculated LDL 130 mg/dL (<100); Cholesterol 218 mg/dL (<200); HDL Cholesterol 26 mg/dL (40-60); Triglyceride 310 mg/dL (<150)
== END 2020-08-16 02:32 | disposition home or self-care (01) ==
LOC: LOS 02:32
PROVIDERS: PCP Nurse Practitioner; Visit Provider Nurse Practitioner
DX: E78.5 Hyperlipidemia, unspecified (principal)
CPT/HCPCS: 36415; 80061

== ENCOUNTER 2021-08-11 02:31 | Outpatient (CLI) | payer MEDICARE, MEDICAID, SELFPAY ==
[2021-08-11 13:36] LABS: Hemoglobin A1C 5.8 % (<5.7)
[2021-08-11 14:08] LABS: Calculated LDL 71 mg/dL (<100); Cholesterol 166 mg/dL (<200); HDL Cholesterol 29 mg/dL (40-60); Triglyceride 332 mg/dL (<150)
== END 2021-08-11 02:32 | disposition home or self-care (01) ==
LOC: LBO 02:32
PROVIDERS: PCP Nurse Practitioner; Visit Provider Nurse Practitioner
DX: E78.5 Hyperlipidemia, unspecified (principal); Z13.1 Encounter for screening for diabetes mellitus
CPT/HCPCS: 36415; 80061; 83036

== ENCOUNTER 2021-11-23 03:14 | Outpatient (CLI) | payer MEDICARE, MEDICAID, SELFPAY ==
[2021-11-23 13:09] LABS: Hemoglobin A1C 5.6 % (<5.7)
[2021-11-23 13:16] LABS: BUN 22 mg/dL (7-18); CREATININE 1.5 mg/dL (0.70-1.30); Calcium 9.2 mg/dL (8.5-10.1); Calculated LDL 42 mg/dL (<100); Chloride 104 mmol/L (98-107); Cholesterol 138 mg/dL (<200); Estimated GFR 46.82 (mL/min/1.73m2); Glucose 106 mg/dL (74-106); HDL Cholesterol 29 mg/dL (40-60); Potassium 4.5 mmol/L (3.5-5.1); Sodium 137 mmol/L (136-145); Triglyceride 337 mg/dL (<150)
== END 2021-11-23 03:15 | disposition home or self-care (01) ==
LOC: LOS 03:14
PROVIDERS: PCP Nurse Practitioner; Visit Provider Nurse Practitioner
DX: I10 Essential (primary) hypertension (principal); E78.5 Hyperlipidemia, unspecified; R73.03 Prediabetes; N18.9 Chronic kidney disease, unspecified
CPT/HCPCS: 36415; 80048; 80061; 83036

== ENCOUNTER 2022-01-19 00:46 | Outpatient (CLI) | payer MEDICARE, MEDICAID, SELFPAY ==
--- OUTSIDE RECORDS SUMMARY | 2022-01-19 01:22 | XMS_ITS | Encounter Summary ---
:1955 Author Organization [facility] [place] [address] Care Team Providers Name Role Phone Odalys Laird MD Primary Care Provider Encounter Details Date Type Department Care Team Description 06/07/2017 Orders Only Thoracic Surgery at [facility] Haroon Arcos, Pleural empyema [facility] [place] [address] [facility] [phone] Thoracic Surgery [place] [id number] (Wo rk) Social History Tobacco Use Types Packs/Day Years Used Date Former Smoker Cigarettes 4 22 04/28/1968 - 1 Smokeless Tobacco: Former User Chew Q uit: 04/28/2017 Comments: haven't used chew in a few wee [place] Alcohol Use Standard Drinks/Week Comments Yes 0 (1 standard drink = 0.6 oz pure alcoho l) occasional Alcohol Habits Answer Date Recorded How often do you have a drink containing alcohol? Not asked How many drinks containing alcohol do you have on a typical Not asked day when you are drinking? How often do you have six or more drinks on one occasion? No t asked Comment: occasional 04/28/2017 Sex Assigned at Date Recorded Not on file documented as of this encounter Plan of Treatment Not on filedocumented as of this encounter Visit Diagnoses Diagnosis Pleural empyema Empyema without mention of fistula documented in this encounter Care Teams Concrete Panel Installer Relationship Specialty Start Date End Date Odalys Laird MD PCP - General Internal Medicine 04/27/[address] [place] [address] documented as of this encounter
--- OUTSIDE RECORDS SUMMARY | 2022-01-19 01:22 | XMS_ITS | Encounter Summary ---
:1955 [place] [address] Care Team Providers Name Role Phone Odalys Laird MD Primary Care Provider Reason for Visit Auth/Cert Specialty Diagnoses / Procedures Referred By Contact Refer red To Contact Diagnoses Loculated pleural effusion PLEURAL EFFUSION empyema Procedures @THORACOSCOPY, SURG; W PART. DECORTICATION (WRVU 18.78) Referral ID Status Reason Start Date Expiration Date Visits Requ ested Visits Authorized [id number] 1 1 Encounter Details Date Type Department Care Team Description 06/08/2017 Anesthesia Event Main Operating Room Magan Cullen MD [facility] [place] [address] [facility] Odilon Degroot MD [facility] [place] [address] [facility] [place] [address] Anesthesia Record Procedure Summary Procedure Name Responsible Anesthesia Start Anesthesia Stop Anesthesiologist Time Time @THORACOSCOPY, SURG; W Magan Aguiar MD 06/08/17 1337 06/08 1642 TOTAL DECORTICATION (WRVU 29.13) (Left Chest) Events Date Time Event Comment 06/08/2017 1321 1337 AN Verify 1337 Start 1337 An Start Data 1342 An Start Data 1348 An Induction 1350 An Intubation 1350 FO Bronchoscopy 1353 Anesthesia Ready 1413 An one lung vent 1436 An Data Art 1542 An Data Art 1610 An Dual Lung Vent 1630 Extubation/LMA Out 1630 an stop data 1640 Recovery or ICU Handoff Patient care was transferred to the destination unit staff after review of the patient's medica l history, current anesthetic/surgi flores status and plan, according to the Provider Handoff Checklist. 1642 Stop Name Total fentaNYL 200 mcg Propofol 400 mg Rocuronium 50 mg PHENYLephrine 960 mcg Ondansetron 4 mg Neostigmine 2 mg Glycopyrrolate 0.4 mg Succinylcholine 200 mg piperacillin-tazobactam (ZOSYN) 3.375 g in dextrose 5% 50 mL 3.375 g Dexmedetomidine 44 mcg HYDROmorphone 0.4 mg Lactated Ringers 0 mL Lactated Ringers 500 mL Agents Name O2 Air N2O Sevoflurane (et) Blood No blood administrations on file. Lines, Drains, and Airways Type Details Placement Removal Drain/Device Site 05/28/17; 1411; Left; 05/28/17 1411 by posterior; flank; gravity; Aly Welsh, MEET Brenner; Sterile prep and drape; Lidocaine 1%; #12 Fr. All purpose drain to collection bag. ; Drain exchange due to cracked hub. Drain/Device Site 05/28/17; 1412; Left; 05/28/17 1412 by 8 1514 by anterior; gravity; Aly Morales, RN Leslie Maharaj RN Percarpio; Lidocaine 1%; (#12 Fr. all purpose drain); #12 Fr. all purpose drain to collection bag; Drain exchange.; 06/10/17; 1514 Incision 05/31/17; 1309; abdomen; 05/31/17 1309 by 1208 by 06/11/17; 1208 Keena Galo Ackerman, Kyle N, RN RN Drain/Device Site 05/31/17; 1400; Left; 05/31/17 1400 by 8 1208 by lower; abdomen; gravity; Patricia Rodriguez Ackerman, Kyle N, 06/11/17; 1208 RN RN Drain/Device Site 05/31/17; 1429; Left; 05/31/17 1429 by 8 1207 by lower; abdomen (# 2); Keena Galo Ack erman, Kyle N, collapsible closed device RN RN (19 Fr Ameya); 06/11/17; 1207 Drain/Device Site 05/31/17; 1439; Left; 05/31/17 1439 by 8 1207 by lower; abdomen (#1); Keena Galo Acke rman, Kyle N, collapsible closed device RN RN (19 Ameya); 06/11/17; 1207 PIV 06/07/17; 205; basilic 06/07/172058 by 8 2224 by vein (medial side of arm), Rosa Kwong, Kourtney Mckinney, right; nmzp-swy-mdavde JONES RN catheter system; 22 gauge, 1 in length; ROSA KWONG RN VAS; distraction, tolerated well, appears comfortable; 0; patient complaining that it is tender and sore to flush; site symptomatic, site care per policy/procedure, removed per policy/procedure, catheter/device intact; 06/08/17; 222 PIV 06/07/17; 2100; cephalic 06/07/17 2100 by 1741 by vein (lateral side of Rosa Kwong, Julio C Ackerman, arm), right; JONES RN [id number]-srs-xttdyb catheter system; 22 gauge, 1 in length; ROSA KWONG RN VAS; distraction, tolerated well, appears comfortable; 0; 06/08/17; 1741 ETT Mask Ventilation: Not 06/08/17 1350 by 06/08/17 1630 by Attempted (0); ETT Type: Odilon Degroot MD H oyt, Magan Fontanez MD Cuffed, Oral; Double Lumen: 37 Fr, Left; Indirect:Video (CMAC); Notes: Asleep, Pre-O2, Stylette, Cricoid Pressure; Attempts: 2 (Very anterior); Laryngoscopy Grade: 1; ETT Placement Verified By: Auscultation, Capnometry, Visual; Secured at Teeth: 31 cm; Inserted by: Dr. Degroot PIV 06/08/17; 1353; metacarpal 06/08/17 1353 by 05/30 05/16 1105 by vein (top of hand), left; Odilon Degroot MD Mallett, Sharon E, fqpf-zfq-ixhbom catheter RN system; 16 gauge; Dr. Degroot; site symptomatic, site care per policy/procedure, removed per policy/procedure, catheter/device intact; 06/09/17; 1105 PIV 06/08/17; 1401; metacarpal 06/08/17 1401 by 05/30 1741 by vein (top of hand), left; Odilon Degroot MD Martin, Andrew P, ejfy-hra-seyeqz catheter RN system; 16 gauge; 06/08/17; 1741 Incision 06/08/17; 1430; chest; 06/08/17 1430 by 06/11/17 1207 by laparoscopic punctures Jorge Conley RN Ackerma n, Kyle N, (specify); x3; 06/11/17; RN 1207 Chest Tube 06/08/17; 1623; Left; 06/08/17 1623 by 06/11/17 0915 by lateral; Superior Chest; Jorge Conley RN Acker man, Kyle N, 06/11/17; 0915 RN Chest Tube 06/08/17; 1624; Left; 06/08/17 1624 by 06/10/17 2308 by lateral; Inferior of the Jorge Conley RN Jerry, Katelyn D, two Chest tubes------ d/c RN on day shift unsure exact time; 06/10/17; 2308 Urethral Catheter 06/08/17; 1627; Physician 06/08/17 1627 by 02/13 1900 by order; intermittent Jorge Conley RN Conlogue, Samuel W, catheter; 100% silicone; RN 14; 1; 0; intraurethral Xylocaine gel; other (see comments); urethral catheter removed; 150cc urine (unknown time of removal.); 06/08/17; 1900 documented in this encounter Social History Tobacco Use Types Packs/Day Years Used Date Former Smoker Cigarettes 4 22 04/28/1968 - 1 Smokeless Tobacco: Former User Chew Q uit: 04/28/2017 Comments: haven't used chew in a few wee ks Alcohol Use Standard Drinks/Week Comments Yes 0 [...] on file documented as of this encounter OR Notes Anesthesia Postprocedure Evaluation - Magan Aguiar MD - 06/08/2017 5:14 PM EST [facility] Department of Anesthesiology Post-procedure Note Patient: Daniel Urena Procedure Summary Date Anesthesia Start Anesthesia Stop Room / Location 06/08/17 1337 1642 [facility] OR 22 / [facility] MAIN OR Procedure Diagnosis Surgeon Responsible Provider @THORACOSCOPY, SURG; W TOTAL DECORTICATION (WRVU 29.13) (Left Chest); BRONCHOSCOPY, DIAGNOSTIC (WRVU 2.78) (N/A Bronchus) Pleural empyema (empyema) Haroon Arcos MD Hoyt, Matthew J, MD All Anesthesia Providers: Anesthesiologist: Magan Aguiar MD Most Recent Vitals: 06/08/17 1700 BP: 108/71 Pulse: 82 Resp: 19 Temp: SpO2: 100% Pain Patient Location: PACU/[facility] Level of Consciousness: Awake and Alert Pain Management: Satisfactory Analgesia PONV: None Cardiovascular Status: At Baseline Respiratory Status: At Baseline Postoperative Fluid Status: Intravascular EUvolemia Possible Anesthetic Complications: NONE apparent at time of evaluation Final Primary Anesthesia Type: General (The anesthetic type performed was the same as planned.) Comments: Anesthesia Preprocedure Evaluation - Magan Aguiar MD - 06/08/2017 6:01 AM EST Pre-Anesthesia Evaluation for: Daniel Urena a 61 y.o. male. Procedure(s): @THORACOSCOPY, SURG; W PART. DECORTICATION (WRVU 18.78) BRONCHOSCOPY, DIAGNOSTIC (WRVU 2.78) Patient Active Problem List Diagnosis ??? Loculated pleural effusion ??? Abscess ??? Intra-abdominal abscess ??? Retroperitoneal abscess Past Medical History: Diagnosis Date ??? HTN (hypertension) ??? Obesity Past Surgical History: Procedure Laterality Date ??? ORCHIOPEXY Left ??? PRO LAP, ABD/PERIT/OMENTUM, UNLIST N/A 05/31/2017 LAPAROSCOPY, DRAINAGE ABD ABSCESS (WRVU *) performed by Gilson Mcgee MD at [facility] MAIN OR ??? PRO LAP, ABD/PERIT/OMENTUM, UNLIST N/A 05/31/2017 LAPAROSCOPY, TUMOR EXCISION, RETROPERITONEAL (WRVU *) performed by Gilson Mcgee MD at [facility] MAIN OR Social History Substance Use Topics ??? Smoking status: Former Smoker Packs/day: 4.00 Years: 22.00 Types: Cigarettes Start date: 04/28/1968 Quit date: 04/28/1986 ??? Smokeless tobacco: Former User Types: Chew Quit date: 04/28/2017 Comment: haven't used chew in a few weeks ??? Alcohol use Yes Comment: occasional History Drug Use No Allergies Allergen Reactions ??? Mold Other (See Comments) Drainage in his eyes, sinuses congest. ??? Tylenol [Acetaminophen] Causes acid reflux Medications: MAR and/or home medications have been reviewed. Physical Exam: Most Recent Vitals: 06/08/17 0223 BP: 128/80 Pulse: Resp: 18 Temp: 37.2 ??C (99 ??F) SpO2: 92% Body mass index is 49.32 kg/(m^2). Weight: (!) 151.5 kg (334 lb) Airway Assessment: Mallampati: III TM distance: >3 FB Neck ROM: full Cardiovascular Assessment: cardiovascular exam normal Pulmonary Assessment: (+) rhonchi Dental Assessment: Misc Assessment: IV access: Peripheral line Anesthesia Plan: ASA 3 general, with a(n) intravenous induction 61 y.o. male with pmh significant for morbid obesity, hypertension, Previous retroperitoneal and intraabdominal abscesses (unknown origin, s/p IR and Laparoscopic drainage), now presenting with left lung empyema and small pneumothorax for left thoracoscopy. 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 Patient's documented history was negative for seizures, CVA, severe cardiopulmonary disease, GERD, hepatic/renal disease, coagulopathy, or recent URI/RAD. EKG: NSR Lab Results Component Value Date HGB 10.0 (L) 06/08/2017 PLATELET 332 06/08/2017 INR 1.1 05/10/2017 NA 136 06/01/2017 K 4.3 06/01/2017 CREATININE 1.19 06/01/2017 06/07/17 05/25/17 1945 0846 ABORH A Pos A Pos Allergies: -- Mold -- Other (See Comments) -- Drainage in his eyes, sinuses congest. -- Tylenol (Acetaminophen) -- Causes acid reflux NPO Status: Having gerd sxs Anesthetic hx: No reported prior complications with anesthesia Airway hx: Mask w/ adjunct. 2 attempts intubation by CMAC Anesthetic Plan: GA with MANNY Standard ASA monitoring Adequate IV access Region - Intrathoracic Non-Cardiac Informed Consent: Anesthetic plan and risks discussed with patient. Use of blood products discussed with patient who consented to blood products. Plan discussed with resident and attending. PAT Staff Note documented in this encounter Plan of Treatment Not on filedocumented as of this encounter Visit Diagnoses Not on filedocumented in this encounter Administered Medications Inactive Administered Medications - up to 3 most recent administrations Medication Order MAR Action Action Date Dose Rate Site dexmedetomidine (PRECEDEX) Given 06/08/2017 3:58 PM EST 12 mcg injection PRN, Starting on 06/08/17 at 1535, Until 06/08/17 at 1714, Anesthesia Intra-op, Routine Given 06/08/2017 3:53 PM EST 8 mcg Given 06/08/2017 3:46 PM EST 8 mcg fentaNYL 50 mcg/mL multi-dose injection Given 06/08/2017 2:55 PM EST 100 mcg PRN, Starting on 06/08/17 at 1337, Until 06/08/17 at 1714, Pain, Anesthesia Intra-op, Routine Given 06/08/2017 1:37 PM EST 100 mcg glycopyrrolate (ROBINUL) multi-dose inje ction Given 06/08/2017 4:11 PM EST 0.4 mg PRN, Starting on 06/08/17 at 1611, Until 06/08/17 at 1714, Anesthesia Intra-op, Routine HYDROmorphone (DILAUDID) injection Given 06/08/2017 4:13 PM EST 0.4 mg PRN, Starting on 06/08/17 at 1613, Until 06/08/17 at 1714, Pain, Anesthesia Intra-op, Routine lactated Ringers infusion New Bag 06/08/2017 1:37 PM EST CONTINUOUS PRN, Starting on 06/08/17 at 1337, Until 06/08/17 at 1714, Anesthesia Intra-op lactated Ringers infusion New Bag 06/08/2017 1:37 PM EST CONTINUOUS PRN, Starting on 06/08/17 at 1337, Until 06/08/17 at 1714, Anesthesia Intra-op neostigmine (BLOXIVERZ) injection Given 06/08/2017 4:11 PM EST 2 mg PRN, Starting on 06/08/17 at 1611, Until 06/08/17 at 1714, Anesthesia Intra-op, Routine ondansetron (ZOFRAN) injection Given 06/08/2017 4:11 PM EST 4 mg PRN, Starting on 06/08/17 at 1611, Until 06/08/17 at 1714, Nausea, Anesthesia Intra-op, Routine PHENYLephrine in NS (PF) (VERITO-SYNEPHRINE) Given 06/08/2017 3:41 PM EST 160 mcg 0.8 mg/10 mL (80 mcg/mL) multi-dose injection Syrg PRN, Starting on 06/08/17 at 1357, Until 06/08/17 at 1714, Anesthesia Intra-op, Routine Given 06/08/2017 2:22 PM EST 160 mcg Given 06/08/2017 2:15 PM EST 160 mcg piperacillin-tazobactam (ZOSYN) Given 06/08/2017 10:00 PM 3.375 g 12.5 mL/hr 3.375 g in dextrose 5% 50 mL EST 3.375 g, Intravenous, EVERY 8 HOURS, First dose on Sat06/07/17 at 1930, Until Discontinued, Administer over 4 Hours, Warning Vesicant/Irritant Medication , Indication for (Active or Suspected): Pneumonia ([facility]) Given 06/08/2017 1:53 PM EST 3.375 g Given 06/08/2017 12:23 PM EST 3.375 g 12.5 mL/hr propofol (DIPRIVAN) 10 mg/mL bolus injection Given 8 1:54 PM EST 50 mg (Anesthesia) PRN, Starting on 06/08/17 at 1348, Until 06/08/17 at 1714, Anesthesia Intra-op Given 06/08/2017 1:48 PM EST 350 mg rocuronium (ZEMURON) multi-dose injectio n Given 06/08/2017 3:19 PM EST 20 mg PRN, Starting on 06/08/17 at 1442, Until 06/08/17 at 1714, Anesthesia Intra-op, Routine Given 06/08/2017 2:42 PM EST 30 mg succinylcholine (ANECTINE) injection Given 06/08/2017 1:48 PM EST 200 mg PRN, Starting on 06/08/17 at 1348, Until 06/08/17 at 1714, Anesthesia Intra-op, Routine documented in this encounter Care Teams Eng[employer] Mold Relationship Specialty Start Date End Date Odalys Laird MD PCP - General Internal Medicine 04/27/[address] [place] [address] [address] [facility] [address] [place] [address] documented as of this encounter
--- OUTSIDE RECORDS SUMMARY | 2022-01-19 01:22 | XMS_ITS | Clinical Summary ---
:1955 Author Organization [facility] [place] [address] Care Team Providers Name Role Phone Odalys Laird MD Primary Care Provider Allergies Active Allergy Reactions Severity Noted Date Comments Mold Other (See Comments) 05/31/2017 Drainag e in his eyes, sinuses congest. Medications Medication Sig Dispensed Refills Start Date End Date Status naproxen sodium Take 220 mg by 0 Active (ANAPROX) 220 mg Tablet mouth as needed. Active Problems Problem Noted Date Loculated pleural effusion 06/07/2017 Abscess 05/24/2017 Intra-abdominal abscess 05/10/2017 Retroperitoneal abscess 04/27/2017 Social History Tobacco Use Types Packs/Day Years Used Date Former Smoker Cigarettes 4 22 04/28/1968 - 1 Smokeless Tobacco: Former User Chew Q uit: 04/28/2017 Tobacco Cessation: Counseling Given: Yes Comments: haven't used chew in a few wee de Alcohol Use Standard Drinks/Week Comments Yes 0 [...] Assigned at Date Recorded Not on file Last Filed Vital Signs Vital Sign Reading Time Taken Comments Blood Pressure 148/98 06/28/2017 10:05 AM EST Pulse 109 06/28/2017 10:05 AM EST Temperature 36.7 ??C (98 ??F) 06/28/2017 10:05 AM EST Respiratory Rate 20 06/28/2017 10:05 AM EST Oxygen Saturation 99% 06/28/2017 9:03 AM EST Inhaled Oxygen Concentration - - Weight 155.6 kg (343 lb) 06/28/2017 9:03 AM EST Height 175 cm (5' 8.9) 06/28/2017 9:03 AM EST Body Mass Index 50.8 06/28/2017 9:03 AM EST Plan of Treatment Health Maintenance Due Date Last Done Comments Covid-19 Vaccine (#1) 09/23/1960 Hepatitis C Screening 09/23/1973 Lipid Screening 09/23/1973 Tdap adult 09/23/1974 Tetanus vaccine 09/23/1974 Colonoscopy 09/23/2000 Zoster vaccine (1 of 2) 09/23/2005 Advance Directive 09/23/2010 Pneumoccocal Vaccine: 65+ (1 - PCV) 09/23/2020 Influenza (Flu) vaccine (1 of 1 - Influenza standard 12/28/2021 series) Insurance Payer Benefit Plan / Subscriber ID Effective Dates Phone Addre ss Type Group [place] [id number] 2019-Prese [phone] [address] [place] [address] [place] [id number] 2017-Presen [id number] [address] [place] [address] Advance Directives Latest Code Status on File Code Status Date Activated Date Inactivated Comments Full Code 06/07/2017 6:25 PM 06/11/2017 2:34 PM Does patient have capacity to make decision: Yes Full Code 05/31/2017 11:47 AM 06/01/2017 7:08 PM Does patient have capacity to make decision: Yes Full Code 05/28/2017 1:09 PM 05/29/2017 4:36 AM Does patient have capacity to make decision: Yes Full Code 05/24/2017 6:00 PM 05/27/2017 7:56 PM Does patient have capacity to make decision: Yes Full Code 05/10/2017 12:36 PM 05/16/2017 12:44 PM Does patient have capacity to make decision: Yes Care Teams Business Rules Developer Relationship Specialty Start Date End Date Odalys Laird MD PCP - General Internal Medicine 04/27/[address] [place] [address]
--- OUTSIDE RECORDS SUMMARY | 2022-01-19 01:22 | XMS_ITS | Encounter Summary ---
:1955 Author Organization [facility] [place] [address] Care Team Providers Name Role Phone Odalys Laird MD Primary Care Provider Reason for Visit Reason Onset Date Comments Post Hospital Discharge 06/12/2017 Hospital DC foll ow up call. Encounter Details Date Type Department Care Team Description 06/12/2017 Telephone Thoracic Surgery at [facility], Pos t Hospital Discharge [facility] (Hospital DC follow up [facility] [place] [address] Social History Tobacco Use Types Packs/Day Years [...] on file documented as of this encounter Miscellaneous Notes Telephone Encounter - Flora Barr, RN - 06/12/2017 10:10 AM EST Thoracic Surgery Nursing Post-operative Follow up: Admission date and DC date 06/11/17 Hx: Loculated pleural effusion THORACOSCOPY, SURG; W TOTAL DECORTICATION POD#: 3 General statement: I feel pretty good. Pain:denies pain at this time . GI :LBM today ,voiding frequently ,states this is not new for him. Respiratory:using IS at home ,aware of importance.Occasional productive cough when changing positions ,aware of adverse sx to report and where to call,denies increased shortness of breath. Activity: aware of need to increase activity daily. Integumentary:dressings remain intact to old chest tube sites,planning to remove dressings as per DCinstructions Plan: seeing PCP 06/14/17 ,aware of upcoming office visit with CXR prior 06/28/17 and will call sooner should he have any questions or concerns. documented in this encounter Plan of Treatment Not on filedocumented as of this encounter Visit Diagnoses Not on filedocumented in this encounter Care Teams Pastoral Ministries Professor Relationship Specialty Start Date End Date Odalys Laird MD PCP - General Internal Medicine 04/27/[address] [place] [address] [address] [place] [address] documented as of this encounter
--- OUTSIDE RECORDS SUMMARY | 2022-01-19 01:22 | XMS_ITS | Encounter Summary ---
:1955 Author Organization [facility] [place] [address] Care Team Providers Name Role Phone Odalys Laird MD Primary Care Provider Reason for Visit Reason Onset Date Comments Labs Only 06/14/2017 BMP Order Encounter Details Date Type Department Care Team Description 06/14/2017 Telephone Thoracic Surgery at [facility] Michell Henson RN Labs Only (BMP Order) [place] [address] Social History Tobacco Use Types Packs/Day [...] this encounter Miscellaneous Notes Telephone Encounter - Michell Henson RN - 06/14/2017 2:42 PM EST Call to Dr. Haq's office to request BMP to be drawn at today's appointment. Message left on nurse line. Call from Dr. Haq's nurse stating patient is saying his drain can be pulled today at his appointment. Drain to be managed by Dr. Mcgee with general surgery at [facility] and NOT to be pulled by PCP. Confirmed order for BMP and will fax results to Thoracic Surgery office. documented in this encounter Plan of Treatment Not on filedocumented as of this encounter Visit Diagnoses Not on filedocumented in this encounter Care Teams Prenatal Nurse Relationship Specialty Start Date End Date Odalys Laird MD PCP - General Internal Medicine 04/27/[address] [place] [address] documented as of this encounter
--- OUTSIDE RECORDS SUMMARY | 2022-01-19 01:22 | XMS_ITS | Encounter Summary ---
:1955 Author Organization [facility] [place] [address] Care Team Providers Name Role Phone Odalys Laird MD Primary Care Provider Reason for Visit Reason Comments Follow-up Encounter Details Date Type Department Care Team Description 06/28/2017 Office Visit General Surgery at [facility], Retrop eritoneal abscess [facility] [address] [place] GENERAL SURGERY [id number] [place] [address] [phone] Social History Tobacco Use Types Packs/Day Years Used Date Former Smoker Cigarettes 4 22 04/28/1968 - 1 Smokeless Tobacco: Former User Chew Q uit: 04/28/2017 Comments: haven't used chew in a few wee la Alcohol Use Standard Drinks/Week Comments Yes 0 [...] on file documented as of this encounter Progress Notes Lane Bass MD - 06/28/2017 11:45 AM EST General Surgery Follow Up Appointment. Mr. Urena returns to clinic today. He reports feeling reasonably well overall. He is now 4 weeks s/p his retroperitoneal abscess drainage and 3 weeks from his decortication. He thinks he is feeling much better, but again he is very non-specific. No significant output from his remaining drain. About 5-10cc per da. No fevers, or cough. Has back pain (which he says is chronic). No chest pain or left flank pain On exam, There were no vitals taken for this visit. He appears in no acute distress Abdomen soft, NT/ND. Incisions well healed. Ameya with serous fluid in bulb- holding suction. CXR today shows post-operative changes Assessment/Plan: Mr. Urena is a 61 year old male who appears to have a resolved retroperitoneal abscess after IR and finally surgical drainage. This was complicated by a phrenic abscess and underwent decortication by Dr. Arcos. He recovered very well after this procedure and currently has no signs or symptoms of infection. His remaining drain has minimal output and the fluid appears serous- this was pulled in clinic today. Patient is interested in returning to work and I think this is reasonable. Will have patient return for follow up in a few months to ensure his continued recovery. LANE BASS MD documented in this encounter Plan of Treatment Not on filedocumented as of this encounter Visit Diagnoses Diagnosis Retroperitoneal abscess Other retroperitoneal abscess documented in this encounter Care Teams Blast Setter Relationship Specialty Start Date End Date Odalys Laird MD PCP - General Internal Medicine 04/27/[address] [place] [address] documented as of this encounter
--- OUTSIDE RECORDS SUMMARY | 2022-01-19 01:22 | XMS_ITS | Encounter Summary ---
:1955 [place] [address] Care Team Providers Name Role Phone Odalys Laird MD Primary Care Provider Reason for Visit Auth/Cert Specialty Diagnoses / Procedures Referred By Contact Refer red To Contact Diagnoses Loculated pleural effusion PLEURAL EFFUSION empyema Procedures @THORACOSCOPY, SURG; W PART. DECORTICATION (WRVU 18.78) Referral ID Status Reason Start Date Expiration Date Visits Requ ested Visits Authorized [id number] 1 1 Encounter Details Date Type Department Care Team Description 06/07/2017 - Hospital Encounter 4 Gerardo Nova Isrrael Haroon Locada ated pleural effusion; 06/11/2017 [facility] MD Connie Pleural empyema Hospital [facility] [address] [phone] Social History Tobacco Use Types Packs/Day Years [...] on file documented as of this encounter Last Filed Vital Signs Vital Sign Reading Time Taken Comments Blood Pressure 136/88 06/11/2017 11:29 AM EST Pulse 89 06/08/2017 5:45 PM EST Temperature 37.1 ??C (98.8 ??F) 06/11/2017 11:29 AM EST Respiratory Rate 18 06/11/2017 11:29 AM EST Oxygen Saturation 99% 06/11/2017 11:29 AM EST Inhaled Oxygen Concentration - - Weight 151.3 kg (333 lb 8.9 oz) 06/11/2017 6:28 AM EST Height 175.3 cm (5' 9.02) 06/09/2017 11:00 AM EST Body Mass Index 49.23 06/09/2017 11:00 AM EST documented in this encounter Discharge Summaries Haroon Cherry MD - 06/11/2017 10:48 AM EST Inpatient - Discharge Summary Patient Name: Daniel Urena Patient Age: 61 y.o. Birthdate: 1955 Admit date: 06/07/2017 Discharge date and time: 06/11/2017 Attending Physician: Haroon Cherry MD Primary Diagnosis: Left Loculated Pleural Effusion Secondary Diagnosis: Active Hospital Problems Diagnosis ??? Loculated pleural effusion Resolved Hospital Problems Diagnosis Date Resolved No resolved problems to display. Active Non-Hospital Problems Diagnosis ??? Abscess ??? Intra-abdominal abscess ??? Retroperitoneal abscess HPI: Daniel Urena is a 61-year-old male with history of morbid obesity and hypertension who was most recently admitted on May 10, 2017 for persistent retroperitoneal abscesses of unknown origin. ??He was discharged on May 16, 2017 with both anterior and posterior Kevin-Frank drains placed by inte rventional radiology, and was sent home on a course of cipro and flagyl. This management proved unsuccessful, and he was taken to the OR by Dr. Mcgee for drainage of his abscesses on 05/31/2017 (findingsbelow). ?? He presented today, 06/07, for follow up CT A/P which showed near-complete resolution of left paracolic gutter and retroperitoneal Abscesses, however revealed a significant effusion with loculations within the base and anterior aspects of the left pleural space. Mr. Urena reports feeling well since his discharge on the . He reports no chills, fevers, nausea, vomiting, or muscle aches. He does admit to a persistent hack which he reports is nothing new. ?? In the office today, Dr. Mcgee removed 2 of the 3 drains placed in the OR. Given the findings on CT,he consulted Dr. Cherry who reviewed Mr. Urena's labs and imaging. ? Operations/Major Procedures: Operations: 06/08/2017 Surgeon(s) and Role: * Haroon Cherry MD - Primary * Cony Dove MD - Resident-Educational Psychologist: Procedure(s): @THORACOSCOPY, SURG; W TOTAL DECORTICATION (WRVU 29.13) BRONCHOSCOPY, DIAGNOSTIC (WRVU 2.78) Hospital Course: Daniel Urena was taken to the operating room where the above procedures were performed. He tolerated the operation well and without complication. He was admitted post-operatively for observation andmanagement. The patient's hospital course was uncomplicated. His first chest tube was removed on 06/10 and his second was removed on 06/11 without issue. He was found to have an elevated creatinine level to 2.0 on POD2 which keisha to 2.4 on POD 3. This islikely an Acute Kidney Injury in reaction to the vancomycin administered earlier in his course, although the cause is unknown. He will follow up with his PCP office on Wednesday 06/14 at 2 pm to have a repeat BM Infectious disease has been following his case for several weeks decided he should continue ciprofloxacin and flagyl regimen that had effectively treated the E Coli pathogen that was the main actor in his abdominal and retroperitoneal abscesses. He will take that for 2 weeks until follow up with ID. On POD 3 he was tolerating a regular diet, pulling over 1.2L on IS consistently, ambulating without assistance and having adequate pain control with only tylenol. He was deemed stable for discharge to home. Condition at Discharge: Stable Important Studies and Lab Data: Labs: Recent Labs 06/10/17 0615 WBC 8.2 HGB 10.3* HCT 31.8* PLATELET 369* No results for input(s): INR in the last 72 hours. Recent Labs 06/11/17 0812 06/10/17 0615 NA -- 139 K -- 3.7 CL -- 101 CO2 -- 25 BUN -- 10 CREATININE 2.43* 2.03* Studies: CT A/P w Con 06/07 FINDINGS: ?? Lower chest: There is a new small left basilar loculated pleural effusion with multiple pockets of air within the effusion. There is mild peripheral enhancement of this effusion. This effusion is concerning for empyema. There is associated compressive atelectasis in the basilar left lower lobe. ?? Liver: Unchanged contour. No focal lesions. Bile ducts: Nondilated. Gallbladder: Cholelithiasis is again noted. No evidence of cholecystitis. Pancreas: Normal attenuation without ductal dilatation. Spleen: Unchanged mild splenomegaly. Adrenals: Normal. Kidneys: lobulations again noted bilaterally. There is a punctate nonobstructing left upper pole renal calculus. Vasculature: No aneurysm. ?? Lymph Nodes: No enlarged lymph nodes. Bowel: Nondilated, no wall thickening. Peritoneum and mesentery: The previously noted left paracolic gutter abscess has essentially entirely completely resolved. A drain remains in place at the former site of the abscess. There is minimal residual fluid at the site of the previously noted left retroperitoneal abscess. There are 2 drains in this collection. There is residual fat stranding in the left retroperitoneum posterior to the left adrenal gland and posterior and inferior to the left kidney which appears similar to the previous study. This stranding extends anterior to the left psoas muscle. Abdominal wall: Normal. ?? Urinary Bladder: Decompressed limiting evaluation. Reproductive organs: Normal. Osseous structures: No suspicious lesions. ?? IMPRESSION 1. Essentially complete resolution of left paracolic gutter and retroperitoneal abscesses with drains remaining in place. There is persistent inflammatory stranding in the left retroperitoneum extending down the left paracolic gutter. 2. New loculated left pleural effusion containing air concerning for empyema. ?? CT Chest wo Con 06/07 FINDINGS: Lungs and airways: Atelectasis of the majority of the left lower lobe with possible component of consolidative opacities. The lungs are otherwise clear. Central airways are patent. ?? Pleura and pericardium: There is a loculated small left pleural effusion in the lower dorsal and lateral hemithorax, containing foci of air. A small amount of pleural fluid and air is present within the superior aspect of the major fissure. There is a loculated small left apical pneumothorax. No pleural effusion on the right. No pericardial effusion. ?? Heart and vasculature: Heart is normal in size. Mild mitral annular and aortic valve calcifications. Nonaneurysmal thoracic aorta. ?? Mediastinum and hilar structures: Scattered small, subcentimeter mediastinal lymph nodes, likely reactive. ?? Abdomen: Partially imaged perisplenic drain in a decompressed collection. Cholelithiasis. Osseous structure: No focal lytic or sclerotic osseous lesion. ?? IMPRESSION Impression: 1. Small, loculated left pleural collection containing foci of air concerning for empyema. 2. Small left apical pneumothorax. 3. Collapse of the majority of the left lower lobe with possible airspace consolidation, concerning for infection. CXR 06/08 FINDINGS: Enlarged heart. Shallow expansion on the right with a band of mid lung atelectasis. 2 chest tubes have been placed on the left since the CT from 06/07/2017. No pneumothorax is identified. There is consolidation or loculated fluid in the left medial base corresponding to the density described on the CT exam. The trachea angles toward the right, probably secondary to the atelectasis and volume loss on that side. ?? IMPRESSION Atelectasis and mild volume loss on the right. 2 chest tubes on the left without a pneumothorax. Left medial lung base density is attributed to consolidation or loculated fluid as described on the previous day's CT exam CXR 06/09 ?? FINDINGS: No pneumothorax. 2 left-sided chest drains remain with the tips at the apices but the more cranial one does have a proximal port within the soft tissues of the thorax. Moderate subcutaneous emphysema, increased from prior study patchy opacities the LEFT lung base and volume loss with streak atelectasis the RIGHT lung base. No significant effusions. ?? IMPRESSION Expected postoperative changes with exception of increasing left-sided subcutaneous emphysema, likely due to the presence of a chest port catheter outside of the thoracic cavity CXR 06/10 FINDINGS: Two left apically directed chest tubes remain in place. ?? There is a small pneumothorax along the apical and lateral aspect of the left upper chest. There is a small air-fluid level at the inferior aspect compatible with a small hydropneumothorax. Slightly increased left lung base opacity. Right lung is relatively clear. The cardiomediastinal silhouette is partially obscured but grossly stable. Subcutaneous emphysema within the left lateral chest wall is unchanged. ?? IMPRESSION 1. Small left hydropneumothorax. 2. Increased confluence of the left basilar opacity, this may represent a combination of a combination of effusion with atelectasis and/or pneumonia. CXR 06/11 #1 FINDINGS: One of the two left chest tubes has been removed. A small left hydropneumothorax persists. Retrocardiac airspace opacity is unchanged. Lungs are otherwise clear. Cardiomediastinal silhouette is stable. ?? IMPRESSION 1. Stable size of the small left hydropneumothorax. 2. No interval change in the dense retrocardiac opacity. CXR 06/11 #2 Exam: Temp: [36.5 ??C (97.7 ??F)-37.2 ??C (99 ??F)] Heart Rate: -- Resp: [18-22] BP: (136-144)/(87-92) SpO2: [95 %-99 %] Heart Rate from SPO2: [91 bpm-100 bpm] I/O last 3 completed shifts: In: 2860 [P.O.:2860] Out: 3966 [Urine:3900; Other:65; Stool:1] I/O this shift: In: 650 [P.O.:650] Out: 591 [Urine:550; Other:41] Physical Exam: ?? Gen:??A0x3, NAD, resting comfortably CVS: RRR Resp: CTAB, breathing comfortably on RA Abd: soft, appropriately tender, nondistended Ext: SCDs in place, WWP ?? Discharge to: Home Discharge Conditions/Prognosis: Stable Discharge Medications: Your Medications Continued medications, unchanged Dose Details ciprofloxacin 500 mg Tab Commonly known as: CIPRO Take 1 tablet by mouth 2 times daily. 500 mg Quantity: 28 tablet Refills: 0 ibuprofen 600 mg Tab Commonly known as: ADVIL;MOTRIN Take 1 tablet by mouth every 6 hours as needed for Pain (for MILD pain (1-3)). 600 mg Quantity: 30 tablet Refills: 12 metroNIDAZOLE 500 mg Tab Commonly known as: FLAGYL Take 1 tablet by mouth 3 times daily. 500 mg Quantity: 42 tablet Refills: 0 traMADol 50 mg Tab Commonly known as: ULTRAM Take 1 tablet by mouth every 6 hours as needed for Pain. 50 mg Quantity: 10 tablet Refills: 0 Updated Allergies/ADRs: Allergies Allergen Reactions ??? Mold Other (See Comments) Drainage in his eyes, sinuses congest. PCP: Odalys Laird MD Scheduled Appointments: Future Appointments Date Time Provider Department Center 06/28/2017 9:00 AM [facility] DB XRAY ROOM 1 Xray [facility] 06/28/2017 9:30 AM Haroon Cherry MD LEB CT 3K [facility] 07/01/2017 12:00 PM Gilson Mcgee MD Le[facility]urg [facility] 06/14, 2pm: Dr. Loyola, [facility] in [facility] (for sodium check) Instructions Given to Patient at Discharge:. Patient Instructions Call if you have a fever of greater than 101 degrees, shaking chills, develop redness or drainage from your incision site(s), or if you have questions. During normal business hours, Saturday- Saturday 8:00a.m.-5:00 p.m., please call [phone] to speak to a nurse in the Thoracic Clinic. If you get an answering machine or it is after hours or on weekends or holidays please call [phone] and ask to speak to the Thoracic Physician technical consultant. Exercise & Activity Level: As you recover from surgery exercise at least 30 minutes a day. This can be broken up into several times a day to achieve this goal at first, but you will be able to workup to doing all 30 minutes at once. Walking, treadmill, stationary bike, elliptical machine or stationary exercise equipment is appropriate. Take your incentive spirometer home with you. You should use this every hour while awake, 10 times each. This helps you to exercise your respiratory muscles and to breathe deeply. Taking purposeful deep breaths can be just as effective. Do not lift more than 10 pounds for 2 weeks (nothing heavier than a gallon of milk). Don???t exhaustyourself. Rest between activities as you recover from your procedure. Diet: You should follow a regular diet. Driving: You are ok to drive as long as the pain from your surgery does not prohibit you from turning to see blind spots or decrease your reaction time. Shower/Bath: You may shower daily, no bathing or swimming until your follow-up appointment. Incision care: Wash your incision(s) daily with soap and rinse well, pat dry. Assess for any signs of infection such as increased redness, pain, warmth or drainage. If you had a chest tube, you may remove the dressing over the chest tube site in 2 days and leave itopen to the air if it is not draining. Otherwise change the dressing twice a day and as needed. The dressing may remain off once there is no drainage. If you have steri strips over your incision(s), they will fall off on their own after about 7-10 days. If they do not fall off on their own after 7-10 days, you may gently remove them. Pain: Pain after surgery is normal. The goal is for you to be able to tolerate pain so you can complete your daily activities. You may notice a burning or numbness on the side of your incision that mayinclude your breast area. This should improve over time but there may be areas that remain numb. Youmay use a heating pad set on low or medium, over your incision to help relax the muscles in the areaand decrease discomfort. Please take your medication as prescribed. If you are not having good pain control, please call and speak to the nurse in the Thoracic Clinic or the technical consultant Attending Physicianafter hours. We are unable to refill narcotics after 5 pm or on weekends or holidays. If you need more pain medication please call us before you run out of pills. Please allow 3 days for us to mail a refill for pain medication to you. Narcotic medication is intended for your use only. Do not share with others. If you are given a prescription for narcotics please keep these in a safe place and dispose of properly when you no longer need these pills. Sleep: Try to establish normal sleep patterns. Long naps during the day may make it hard for you to sleep at night. Use the pain medication at bedtime for the first week at home. Bowel Movements: After surgery, your bowel movements may not be regular for you, but you should be able to get back to your daily routine quickly. Please make sure to take the stool softeners or mild laxatives as prescribed to get back to your normal routine. If you do not have a bowel movement for more than 2 days, please call the office. Follow up appointments: You will have a follow up appointment in two weeks. A letter will be mailed to you confirming your appointment information. Please call the thoracic clinic at [phone] to confirm/reschedule your appointment. You should arrange to see your primary care physician, in two weeks. If you have any questions or concerns during normal business hours, Saturday- Saturday 8:00 a.m.-5:00 p.m., please call [phone] to speak to a nurse in the Thoracic Clinic. If you get an answering machine or it is after hours or on weekends or holidays please call [phone] and ask to speak to the Thoracic Physician technical consultant. Signed: Nguyễn Smith MD 06/11/2017 documented in this encounter Discharge Instructions Patient InstructionsNguyễn Smith MD - 06/11/2017 10:40 AM EST Call if you have a fever of greater than 101 degrees, shaking chills, develop redness or drainage from your incision site(s), or if you have questions. During normal business hours, Saturday- Saturday 8:00a.m.-5:00 p.m., please call [phone] to speak to a nurse in the Thoracic Clinic. If you get an answering machine or it is after hours or on weekends or holidays please call [phone] and ask to speak to the Thoracic Physician technical consultant. Exercise & Activity Level: As you recover from surgery exercise at least 30 minutes a day. This can be broken up into several times a day to achieve this goal at first, but you will be able to workup to doing all 30 minutes at once. Walking, treadmill, stationary bike, elliptical machine or stationary exercise equipment is appropriate. Take your incentive spirometer home with you. You should use this every hour while awake, 10 times each. This helps you to exercise your respiratory muscles and to breathe deeply. Taking purposeful deep breaths can be just as effective. Do not lift more than 10 pounds for 2 weeks (nothing heavier than a gallon of milk). Don???t exhaustyourself. Rest between activities as you recover from your procedure. Diet: You should follow a regular diet. Driving: You are ok to drive as long as the pain from your surgery does not prohibit you from turning to see blind spots or decrease your reaction time. Shower/Bath: You may shower daily, no bathing or swimming until your follow-up appointment. Incision care: Wash your incision(s) daily with soap and rinse well, pat dry. Assess for any signs of infection such as increased redness, pain, warmth or drainage. If you had a chest tube, you may remove the dressing over the chest tube site in 2 days and leave itopen to the air if it is not draining. Otherwise change the dressing twice a day and as needed. The dressing may remain off once there is no drainage. If you have steri strips over your incision(s), they will fall off on their own after about 7-10 days. If they do not fall off on their own after 7-10 days, you may gently remove them. Pain: Pain after surgery is normal. The goal is for you to be able to tolerate pain so you can complete your daily activities. You may notice a burning or numbness on the side of your incision that mayinclude your breast area. This should improve over time but there may be areas that remain numb. Youmay use a heating pad set on low or medium, over your incision to help relax the muscles in the areaand decrease discomfort. Please take your medication as prescribed. If you are not having good pain control, please call and speak to the nurse in the Thoracic Clinic or the technical consultant Attending Physicianafter hours. We are unable to refill narcotics after 5 pm or on weekends or holidays. If you need more pain medication please call us before you run out of pills. Please allow 3 days for us to mail a refill for pain medication to you. Narcotic medication is intended for your use only. Do not share with others. If you are given a prescription for narcotics please keep these in a safe place and dispose of properly when you no longer need these pills. Sleep: Try to establish normal sleep patterns. Long naps during the day may make it hard for you to sleep at night. Use the pain medication at bedtime for the first week at home. Bowel Movements: After surgery, your bowel movements may not be regular for you, but you should be able to get back to your daily routine quickly. Please make sure to take the stool softeners or mild laxatives as prescribed to get back to your normal routine. If you do not have a bowel movement for more than 2 days, please call the office. Follow up appointments: You will have a follow up appointment in two weeks. A letter will be mailed to you confirming your appointment information. Please call the thoracic clinic at [phone] to confirm/reschedule your appointment. You should arrange to see your primary care physician, in two weeks. If you have any questions or concerns during normal business hours, Saturday- Saturday 8:00 a.m.-5:00 p.m., please call [phone] to speak to a nurse in the Thoracic Clinic. If you get an answering machine or it is after hours or on weekends or holidays please call [phone] and ask to speak to the Thoracic Physician technical consultant. documented in this encounter Medications at Time of Discharge Medication Sig Dispensed Refills Start Date End Date ciprofloxacin (CIPRO) 500 Take 1 tablet by 28 tablet 0 05/3006/28/2017 mg Tablet mouth 2 times daily. metroNIDAZOLE (FLAGYL) 500 Take 1 tablet by 42 tablet 0 06/28/2017 mg Tablet mouth 3 times daily. traMADol (ULTRAM) 50 mg Take 1 tablet by 10 tablet 0 201706/28/2017 Tablet mouth every 6 hours as needed for Pain. ibuprofen (ADVIL;MOTRIN) Take 1 tablet by 30 tablet 12 05/2706/28/2017 600 mg Tablet mouth every 6 hours as needed for Pain (for MILD pain (1-3)). documented as of this encounter Progress Notes Ti Quintero RN - 06/11/2017 12:25 PM EST Patient Name: Daniel Urena Patient Age: 61 y.o. Birthdate: 1955 Admit date: 06/07/2017 Attending Physician: Haroon Cherry MD Pt discharged home. Off unit in wheelchair, in own clothes with paper prescriptions. CT removed, IV removed. Flank LATOYA drain remains. AVS reviewed, questions encouraged and answered. Nguyễn Smith MD - 06/10/2017 12:[address] [facility] Department of Thoracic Surgery Inpatient Progress Note Patient Name: Daniel Urena Patient : 1955 Patient Patient Location: [address] [place] [address] Attending Surgeon: HAROON CHERRY ID: ?? Daniel Urena is a 61-year-old male with history of morbid obesity and hypertension, retroperitoneal/intraperitoneal abscesses s/p lap drainage procedure, who presented to follow up and found to have aL loculated pleural effusion now s/p L VATS decortication 2 Days Post-Op 24 Hour Events / Subjective: Continues to complain about the tubes in his side, says the small one is the worst Denies SOB/CP/N/V Vitals: Temp: [36.7 ??C (98.1 ??F)-37.5 ??C (99.5 ??F)] Heart Rate: -- Resp: [18-20] BP: (134-139)/(88-92) SpO2: [80 %-98 %] Heart Rate from SPO2: [66 bpm-106 bpm] Wt & BMI By Encounter Date Admission (Current) from 06/07/[address] [place] [address] Most recent reading at 06/10/2017 5:50 AM Office Visit from 06/07/2017 in General Surgery at [place] Most recent reading at 06/07/2017 4:05 PM Weight (!) 151.7 kg (334 lb 7 oz) 1 06/10/2017 0550 (!) 154.2 kg (340 lb) 1 06/07/2017 1605 Physical Exam: Gen: A0x3, NAD, resting comfortably CVS: RRR Resp: CTAB, breathing comfortably on RA L superior = 15 cc SS, -20, no leak L Inferior = 10 cc SS, -20 no leak Abd: soft, appropriately tender, nondistended Ext: SCDs in place, [facility] I/O: I/O last 3 completed shifts: In: 4519.9 [P.O.:1980; I.V.:2189.9; IV Piggyback:350] Out: 4088 [Urine:3850; Other:238] Labs: Recent Labs 06/10/17 0615 WBC 8.2 HGB 10.3* HCT 31.8* PLATELET 369* Recent Labs 06/08/17 0540 INR 1.2* Recent Labs 06/10/17 0615 NA 139 K 3.7 CL 101 CO2 25 BUN 10 CREATININE 2.03* Diagnostics: CXR 06/08/2017 IMPRESSION Atelectasis and mild volume loss on the right. 2 chest tubes on the left without a pneumothorax. Left medial lung base density is attributed to consolidation or loculated fluid as described on the previous day's CT exam CT Abdomen & Pelvis w Contrast 06/07/2017 ?? IMPRESSION 1. Essentially complete resolution of left paracolic gutter and retroperitoneal abscesses with drains remaining in place. There is persistent inflammatory stranding in the left retroperitoneum extending down the left paracolic gutter. 2. New loculated left pleural effusion containing air concerning for empyema. CT Chest wo Contrast 06/07/2017 ?? IMPRESSION Impression: 1. Small, loculated left pleural collection containing foci of air concerning for empyema. 2. Small left apical pneumothorax. 3. Collapse of the majority of the left lower lobe with possible airspace consolidation, concerning for infection. ?? Assessment: Daniel Urena is a 61 y.o. male with recent surgery for intraabdominal and retroperitoneal abscesses on 05/31 who presented to clinic found to have L loculated pleural effusion on CT on 06/08. Now s/p L VATS decortication 2 Days Post-Op Plan: -Tylenol, motrin scheduled and toradol PRN for pain -DC superior CT, continue inferior CT to WS -CXR tomorrow am - IS, OOB -Regular diet -Pericolace -Cipro/flagyl per ID, see note for full details Nguyễn Smith MD 06/10/2017 Thoracic Surgery Service Pager [phone] Associated attestation - Haroon Cherry MD - 06/10/2017 2:36 PM EST I have seen the patient and reviewed the resident's above note and I agree with the details as written. The assessment and plan were formulated in discussion with me and I agree with them as documented. Plan to remove anterior chest tube today. I stressed the importance of Aggressive Pulmonary Hygiene with him in order to help clear his pulmonary infection and prevent the development of pneumonia. Haroon Cherry MD 06/10/2017 Josh Montano, PT - 06/10/2017 10:09 AM EST PT referral received, chart reviewed, spoke to RN and met briefly with patient. He was sititing at EOB, and only complaint is being tethered to tubes/drains. He denies difficulty getting up. Deferred PT eval for today, advised him to mobilize with nursing facilitation today and PT to confirm tomorrow that he has no needs. Josh Montano, PT Pager [phone] Julio C Urena RCP - 06/09/2017 6:56 PM EST Pt refused respiratory care today stating that he choked on milk earlier and has been coughing all day. Nguyễn Smith MD - 06/09/2017 5:[address] [facility] Department of Thoracic Surgery Inpatient Progress Note Patient Name: Daniel Urena Patient : 1955 Patient Patient Location: [facility]/419B Attending Surgeon: HAROON CHERRY ID: ?? Daniel Urena is a 61-year-old male with history of morbid obesity and hypertension who was most recently admitted on May 10, 2017 for persistent retroperitoneal and intra-abdominal abscesses of unknown origin. ??He was discharged on May 16, 2017 with both anterior and posterior Kevin-Frank d rains placed by interventional radiology, and was sent home on a course of cipro and flagyl. This management proved unsuccessful, and he was taken to the OR by Dr. Mcgee for laparoscopic drainage of his abscesses on 05/31/2017 (findings below). ?? He presented today, 06/07, for follow up CT A/P which showed near-complete resolution of left paracolic gutter and retroperitoneal Abscesses, however revealed a significant effusion with loculations within the base and anterior aspects of the left pleural space. Mr. Urena reports feeling well since his discharge on the . He reports no chills, fevers, nausea, vomiting, or muscle aches. He does admit to a persistent hack which he reports is nothing new. ?? In the office today, Dr. Mcgee removed 2 of the 3 drains placed in the OR. Given the findings on CT,he consulted Dr. Cherry who reviewed Mr. Urena's labs and imaging. ?? Now s/p L VATS decortication 1 Day Post-Op 24 Hour Events / Subjective: Has pain with tubes when moving but overall pain is under control with tylenol and toradol Denies SOB, CP, abdominal pain, N/V Vitals: Temp: [36 ??C (96.8 ??F)-37.1 ??C (98.8 ??F)] Heart Rate: [82-89] Resp: [16-23] BP: (97-138)/(67-93) SpO2: [93 %-100 %] Heart Rate from SPO2: [82 bpm-104 bpm] Wt & BMI By Encounter Date Admission (Current) from 06/07/[address] [place] [address] Most recent reading at 06/08/2017 7:00 AM Office Visit from 06/07/2017 in General Surgery at [place] Most recent reading at 06/07/2017 4:05 PM Weight (!) 151.2 kg (333 lb 5.4 oz) 1 06/08/2017 0700 (!) 154.2 kg (340 lb) 1 06/07/2017 1605 Physical Exam: Gen: A0x3, NAD, resting comfortably CVS: RRR Resp: CTAB, breathing comfortably on RA L superior = 80 cc SS, -20, no leak L Inferior = 200 cc SS, -20 no leak Abd: soft, appropriately tender, nondistended Ext: SCDs in place, WWP I/O: I/O last 3 completed shifts: In: 2078 [P.O.:120; I.V.:1333; IV Piggyback:626] Out: 1585 [Urine:1550; Other:35] Labs: Recent Labs 06/08/17 0540 WBC 8.1 HGB 10.0* HCT 31.2* PLATELET 332 Recent Labs 06/08/17 0540 INR 1.2* Recent Labs 06/08/17 0540 NA 140 K 4.0 CL 100 CO2 26 BUN 9* CREATININE 0.95 Diagnostics: CXR 06/08/2017 IMPRESSION Atelectasis and mild volume loss on the right. 2 chest tubes on the left without a pneumothorax. Left medial lung base density is attributed to consolidation or loculated fluid as described on the previous day's CT exam CT Abdomen & Pelvis w Contrast 06/07/2017 ?? IMPRESSION 1. Essentially complete resolution of left paracolic gutter and retroperitoneal abscesses with drains remaining in place. There is persistent inflammatory stranding in the left retroperitoneum extending down the left paracolic gutter. 2. New loculated left pleural effusion containing air concerning for empyema. CT Chest wo Contrast 06/07/2017 ?? IMPRESSION Impression: 1. Small, loculated left pleural collection containing foci of air concerning for empyema. 2. Small left apical pneumothorax. 3. Collapse of the majority of the left lower lobe with possible airspace consolidation, concerning for infection. ?? Assessment: Daniel Urena is a 61 y.o. male with recent surgery for intraabdominal and retroperitoneal abscesses on 05/31 who presented to clinic found to have L loculated pleural effusion on CT on 06/08. Now s/p L VATS decortication 1 Day Post-Op Plan: -Tylenol, motrin scheduled and toradol PRN for pain -Ant and Post CT to water seal this morning -Follow up CXR this morning - IS, OOB -Regular diet -Pericolace -stop LR 75 cc/h -Vancomycin, Zosyn. Narrow with return of OR cultures. No systemic signs of infection Nguyễn Smith MD 06/09/2017 Thoracic Surgery Service Pager [phone] Associated attestation - Haroon Cherry MD - 06/09/2017 7:05 PM EST I have seen the patient and reviewed the resident's above note and I agree with the details as written. The assessment and plan were formulated in discussion with me and I agree with them as documented. Haroon Cherry MD 06/09/2017 Valeriy Guerra, RN - 06/09/2017 5:19 AM EST OUTCOME EVALUATION NOTE: OUTCOME SUMMARY: Daniel had a fine night. VSS on RA. Expressing frustration about re-hospitalization. Denies any appreciable pain, other than intermittent L shoulder soreness which feels like there is an air bubble. This is relieved by sitting at the edge of the bed and heating packs to site. No Painmeds given. LLL coarse, chest tubes to -20. Inferior CT output>superior. No air leak appreciated. Pending morning CXR. Bowels active, passing flauts, tolerating PO. MIVF infusing. Voiding with adequate uop in urinal. Incisions c/d/i. L LATOYA with scant sero/sang/cloudy drainage. Turns self. PLAN MOVING FORWARD: CT management, Xray, pain control, pulmonary toilet, ambulate INDIVIDUALIZED FALL PREVENTION INTERVENTIONS: Patient-specific fall risk factors per assessment: [current deficits]: lines, chest drains, gen weakness, mobility aid. Assistance [level of assistance required for transfers and ambulation]: 1 assist with cane Supervision [direct monitoring required during toileting and ADLs]: Arms reach Surveillance [continuous indirect monitoring]: Call eaton in reach, hourly rounding, bed alarm, room near unit station Patient-specific fall prevention interventions for sensory deficits provided, if applicable: [X] N/A CPG GOAL OUTCOME EVALUATION: Ongoing Nguyễn Smith MD - 06/08/2017 8:00 PM EST Post-Operative Check Daniel Urena is a 61 y.o. male s/p Procedure(s): @THORACOSCOPY, SURG; W TOTAL DECORTICATION (WRVU 29.13) BRONCHOSCOPY, DIAGNOSTIC (WRVU 2.78) S: No nausea/vomiting, chest pain, SOB, pain well controlled, offers no complaints Findings: Normal bronch Extensive inflammatory ring with fluid, 800 cc effusion drained, sent for culture and pathology Good re-expansion of lung following decortication 2x 28 Fr chest tubes placed O: Temp: [36.4 ??C (97.5 ??F)-37.1 ??C (98.8 ??F)] Heart Rate: -- Resp: [18-20] BP: (97-107)/(77-79) SpO2: [94 %-96 %] Heart Rate from SPO2: [99 bpm-104 bpm] I/O last 3 completed shifts: In: 2078 [P.O.:120; I.V.:1333; IV Piggyback:626] Out: 1585 [Urine:1550; Other:35] I/O this shift: In: 2717 [P.O.:390; I.V.:2027; IV Piggyback:300] Out: 1055 [Urine:925; Other:130] Recent Results (from the past 24 hour(s)) Magnesium Result Value Ref Range Magnesium 0.85 0.69 - 1.07 mmol/L Phosphorus Result Value Ref Range Phosphorus 4.0 2.5 - 4.5 mg/dL Prothrombin Time Result Value Ref Range PT 14.5 (H) 11.8 - 14.0 sec INR 1.2 (H) 0.9 - 1.1 Comprehensive metabolic panel (non-fasting) Result Value Ref Range Glucose Lvl 97 65 - 199 mg/dL BUN 9 (L) 10 - 20 mg/dL Creatinine 0.95 0.80 - 1.50 mg/dL Sodium 140 135 - 145 mmol/L Potassium 4.0 3.5 - 5.0 mmol/L Chloride 100 98 - 107 mmol/L CO2 26 22 - 31 mmol/L Anion Gap 14 5 - 15 mmol/L Calcium 8.6 8.5 - 10.5 mg/dL Total Protein 7.0 6.1 - 8.0 gm/dL Albumin 3.0 (L) 3.2 - 5.2 gm/dL AST 10 0 - 39 unit/L ALT <5 0 - 55 unit/L Alk Phos 52 40 - 120 unit/L Total Bilirubin 0.4 0.2 - 1.3 mg/dL Estimated GFR >60 >=60 Hemogram Result Value Ref Range WBC 8.1 4.0 - 9.5 x10(3)/mcL RBC 3.43 (L) 4.58 - 5.54 x10(6)/mcL Hemoglobin 10.0 (L) 13.7 - 16.5 gm/dL Hematocrit 31.2 (L) 40.5 - 48.5 % MCV 91.0 82.9 - 93.1 fL MCH 29.2 27.5 - 32.1 pg MCHC 32.1 32.0 - 35.7 gm/dL Platelets 332 145 - 357 x10(3)/mcL RDWSD 59.5 (H) 36.0 - 45.0 fL RDWCV 17.7 (H) 11.4 - 13.8 % MPV 8.6 7.6 - 12.9 fL nRBC % Auto 0.0 % nRBC Abs Auto 0.000 0.000 - 0.000 x10(3)/mcL Differential, Automated Result Value Ref Range Neutrophils % 63.1 % Neutr Abs (ANC) 5.13 1.70 - 6.10 x10(3)/mcL Lymphocytes % 24.0 % Lymphocytes Abs 2.0 0.9 - 3.2 x10(3)/mcL Monocytes % 9.6 % Monocyte Abs 0.8 0.3 - 0.9 x10(3)/mcL Eosinophils % 2.3 % Eosinophils Abs 0.2 0.0 - 0.4 x10(3)/mcL Basophils % 0.6 % Basophils Abs 0.0 0.0 - 0.1 x10(3)/mcL Immature Gran % 0.40 % Mehnaz Gran Abs 0.03 0.00 - 0.04 x10(3)/mcL Glucose Level Body Fluid Pleural, Left Result Value Ref Range Glucose, BF 54 mg/dL Gluc, BF Type Pleural, Left Lactate Dehydrogenase Body Fluid Pleural, Left Result Value Ref Range LDH BF 1916 unit/L LDH, BF Type Pleural, Left Protein Level Body Fluid Pleural, Left Result Value Ref Range Protein, BF 5.3 gm/dL Protein BF Type Pleural, Left Cell Count Body Fluid Peritoneal Fluid Result Value Ref Range Spec Type BF Peritoneal Fl Color BF Yellow Appearance BF Cloudy WBC BF Ct 684 /mcl Polymorph % 63 % Mononuc % 37 % Polymorph BF ABS 429 /mcl Mononuc ABS 255 /mcl Body Fluid Culture, Aerobic Result Value Ref Range Gram Stain Cytocentrifuge Gram Stain performed No WBC's seen. No microorganisms seen. Tissue culture Result Value Ref Range Gram Stain Few White Blood Cells seen No microorganisms seen. Tissue culture Result Value Ref Range Gram Stain Few White Blood Cells seen No microorganisms seen. CXR 06/08 IMPRESSION Atelectasis and mild volume loss on the right. 2 chest tubes on the left without a pneumothorax. Left medial lung base density is attributed to consolidation or loculated fluid as described on the previous day's CT exam ?? Physical Exam Gen: A0x3, NAD, resting comfortably CVS: RRR Resp: CTAB, breathing comfortably on RA L superior = 80 cc SS, -20, no leak L Inferior = 200 cc SS, -20 no leak Abd: soft, appropriately tender, nondistended Ext: SCDs in place, WWP AP Daniel Urena is a 61 y.o. male s/p L VATS decort currently in stable condition and recovering well -L CT to -20 suction, I/Os, strip and flush q6h - pain well controlled with tyelnol and toradol - hemodynamically stable, UOP adequate (925 cc since OR) Nguyễn Smith MD 06/09/2017 Nguyễn Manuel, DIRECTOR OF RETAIL [employer]NALYT[employer] - 06/08/2017 7:56 PM EST Pt semi-fowlers in bed on 3 liters nasal cannula with SpO2 in the mid 90s. Encouraged pt to deep breath and cough. Encouraged splinting with a pillow. Encouraged pt to use IS; pt was able to perform 5 IS breaths achieve volumes ~1000cc. Pt complaining of pain/discomfort. RN aware. Explained to pt riskof acquiring pneumonia while here in the hospital; explained the importance of using IS, DB/C, etc. Pt verbalized understanding. Respiratory Therapy will follow up with pt and continue to encourage good lung hygiene. Jorge Conley RN - 06/08/2017 4:56 PM EST Patient Name: Daniel Urena Patient Age: 61 y.o. Birthdate: 1955 Admit date: 06/07/2017 Attending Physician: Haroon Cherry MD Nguyễn Smith MD - 06/08/2017 12:[address] [facility] Department of Thoracic Surgery Inpatient Progress Note Patient Name: Daniel Urena Patient : 1955 Patient Patient Location: [id number] Attending Surgeon: HAROON CHERRY ID: ?? Daniel Urena is a 61-year-old male with history of morbid obesity and hypertension who was most recently admitted on May 10, 2017 for persistent retroperitoneal and intra-abdominal abscesses of unknown origin. ??He was discharged on May 16, 2017 with both anterior and posterior Kevin-Frank d rains placed by interventional radiology, and was sent home on a course of cipro and flagyl. This management proved unsuccessful, and he was taken to the OR by Dr. Mcgee for laparoscopic drainage of his abscesses on 05/31/2017 (findings below). ?? He presented today, 06/07, for follow up CT A/P which showed near-complete resolution of left paracolic gutter and retroperitoneal Abscesses, however revealed a significant effusion with loculations within the base and anterior aspects of the left pleural space. Mr. Urena reports feeling well since his discharge on the . He reports no chills, fevers, nausea, vomiting, or muscle aches. He does admit to a persistent hack which he reports is nothing new. ?? In the office today, Dr. Mcgee removed 2 of the 3 drains placed in the OR. Given the findings on CT,he consulted Dr. Cherry who reviewed Mr. Urena's labs and imaging. ?? Presenting for L VATS decortication Hospital Course: POD 0: 24 Hour Events / Subjective: Vitals: Temp: [36.5 ??C (97.7 ??F)-37.2 ??C (99 ??F)] Heart Rate: [107] Resp: [17-18] BP: (128-136)/(79-86) SpO2: [92 %-97 %] Heart Rate from SPO2: [89 bpm-107 bpm] Wt & BMI By Encounter Date Admission (Current) from 06/07/[address] [place] [address] Most recent reading at 06/08/2017 7:00 AM Office Visit from 06/07/2017 in General Surgery at [place] Most recent reading at 06/07/2017 4:05 PM Weight (!) 151.2 kg (333 lb 5.4 oz) 1 06/08/2017 0700 (!) 154.2 kg (340 lb) 1 06/07/2017 1605 Physical Exam: General: NAD, AO x 3 CV: RRR, no m/r/g, no carotid bruits appreciated Pulm: clear to ascultation, no wheezes or crackles Abd/Pelvis: soft, obese, non tender, non distended, L LATOYA drain with small amount of yellow brown, thick fluid Extremities: warm, 1+ edema Vascular: 2+dp/pt bilaterally ?? I/O: I/O last 3 completed shifts: In: 909 [I.V.:833; IV Piggyback:76] Out: 1000 [Urine:1000] Labs: Recent Labs 06/08/17 0540 WBC 8.1 HGB 10.0* HCT 31.2* PLATELET 332 Recent Labs 06/08/17 0540 INR 1.2* Recent Labs 06/08/17 0540 NA 140 K 4.0 CL 100 CO2 26 BUN 9* CREATININE 0.95 Diagnostics: Ct Chest Wo Contrast (generic) Result Date: 06/08/2017 EXAMINATION: CT CHEST WO CONTRAST (GENERIC) CLINICAL HISTORY: L loculated pleural effusion TECHNIQUE: Helical CT of the chest was performed without contrast. Multiplanar reformatted images were reviewed. COMPARISON: Lung bases included on CT abdomen and pelvis 06/07/2017, CT chest, abdomen and pelvis 04/29 FINDINGS: Lungs and airways: Atelectasis of the majority of the left lower lobe with possiblecomponent of consolidative opacities. The lungs are otherwise clear. Central airways are patent. Pleura and pericardium: There is a loculated small left pleural effusion in the lower dorsal and lateralhemithorax, containing foci of air. A small amount of pleural fluid and air is present within the superior aspect of the major fissure. There is a loculated small left apical pneumothorax. No pleural effusion on the right. No pericardial effusion. Heart and vasculature: Heart is normal in size. Mild mitral annular and aortic valve calcifications. Nonaneurysmal thoracic aorta. Mediastinum and hilar str uctures: Scattered small, subcentimeter mediastinal lymph nodes, likely reactive. Abdomen: Partiallyimaged perisplenic drain in a decompressed collection. Cholelithiasis. Osseous structure: No focal lytic or sclerotic osseous lesion. Impression: 1. Small, loculated left pleural collection containing foci of air concerning for empyema. 2. Small left apical pneumothorax. 3. Collapse of the majority of the left lower lobe with possible airspace consolidation, concerning for infection. I have personally reviewed the image(s) and the residents interpretation and agree with the findings, Teena Cross at 06/08/2017 4:39 AM Mri Lumbar Spine Wwo Contrast Result Date: 05/13/2017 EXAMINATION: MRI LUMBAR SPINE WWO CONTRAST CLINICAL HISTORY: Abdominal fullness, retroperitoneal andabd abscesses, unknown source, CT shows new air in disc space of L2-3, r/o discitis either causing or secondary to infection TECHNIQUE: MR of the lumbar spine performed prior to and following intravenous administration of 20 mL dotarem. COMPARISON: CT 05/10/2017 FINDINGS: There is slight anterolisthesis of L4 on L5. Alignment is otherwise maintained. There is signal is diffusely hypointense on T1, without focal marrow signal abnormality or abnormal enhancement presumably reflecting right marrow reactivation. The conus is normal in appearance, and terminates at the L1-L2 level. There is a complex fluid collection in the left retroperitoneum. No findings of discitis/osteomyelitis. There are lower lumbar spine facet degenerative changes, disc degenerative changes at L4-L5 with moderate central canal and mild bilateral foraminal narrowing. No findings to suggest osteomyelitis/discitis. Comment: The following findings are so common in people without low back pain that while we report their presence, they must be interpreted with caution and in context of the clinical situation (Reference- Guilhermek et al, Spine 2001). Findings: (Prevalence in patients without low back pain), disc degeneration (decreased T2 signal, height loss, bulge) (91%), disc T2-signal loss (83%), disc height loss (56%), disc bulge (64%), disc protrusion (32%), annular fissure (38%). Ct Abdomen & Pelvis W Contrast Result Date: 06/07/2017 EXAMINATION: CT ABDOMEN AND PELVIS W CONTRAST CLINICAL HISTORY: s/p retroperitoneal abscess debridement on 05/31; assess abscess status and drain success TECHNIQUE: Helical CT of the abdomen and pelvis was performed following the intravenous administration of contrast. 120 cc of Omnipaque 350 was given. Oral contrast was administered. COMPARISON: 06/24/2017. FINDINGS: Lower chest: There is a new small left basilar loculated pleural effusion with multiple pockets of air within the effusion. There is mild peripheral enhancement of this effusion. This effusion is concerning for empyema. There is associated compressive atelectasis in the basilar left lower lobe. Liver: Unchanged contour. No focal lesions. Bile ducts: Nondilated. Gallbladder: Cholelithiasis is again noted. No evidence of cholecystitis. Pancreas: Normal attenuation without ductal dilatation. Spleen: Unchanged mild splenomegaly. Adrenals:Normal. Kidneys: lobulations again noted bilaterally. There is a punctate nonobstructing left upper pole renal calculus. Vasculature: No aneurysm. Lymph Nodes: No enlarged lymph nodes. Bowel: Nondilated, no wall thickening. Peritoneum and mesentery: The previously noted left paracolic gutter abscess has essentially entirely completely resolved. A drain remains in place at the former site of theabscess. There is minimal residual fluid at the site of the previously noted left retroperitoneal abscess. There are 2 drains in this collection. There is residual fat stranding in the left retroperitoneum posterior to the left adrenal gland and posterior and inferior to the left kidney which appears similar to the previous study. This stranding extends anterior to the left psoas muscle. Abdominal wall: Normal. Urinary Bladder: Decompressed limiting evaluation. Reproductive organs: Normal. Osseous st ructures: No suspicious lesions. 1. Essentially complete resolution of left paracolic gutter and retroperitoneal abscesses with drains remaining in place. There is persistent inflammatory stranding in the left retroperitoneum extending down the left paracolic gutter. 2. New loculated left pleural effusion containing air concerning for empyema. Preliminary report signed by: Mick Patiño at 06/07/2017 4:12 PM I have personally reviewedthe image(s) and the residents interpretation and agree with the findings, Kelby Gandhi at 06/07/2017 4:[address] Abdomen & Pelvis W Contrast Result Date: 05/24/2017 EXAMINATION: CT ABDOMEN AND PELVIS W CONTRAST CLINICAL HISTORY: P/w abdominal pressure and retroperitoneal and recently pericolic abscesses, s/p IR drainage, Eval progression of abscess pockets. TECHNIQUE: CT of the abdomen and pelvis was performed following the intravenous administration of contrast.120 cc of Omnipaque 350 was given. Oral contrast was administered. COMPARISON: Most recent comparison to May 15, 2017 FINDINGS: Lower chest: Linear atelectasis in the left base. No residual pleuralfluid. Liver: Fanta's lobe. Mildly nodular contour. No lesion. Bile ducts: Nondilated. Gallbladder:Contracted, multiple gallstones. Pancreas: Normal attenuation without ductal dilatation. Spleen: Enla rged measuring 19 cm in craniocaudal dimension. Adrenals: Several bulky calcifications in the right adrenal gland. Left adrenal gland abuts the left retroperitoneal collection. Kidneys: Left kidney is displaced anteriorly by the left retroperitoneal collection, with phlegmonous material abutting the lower pole, unchanged. Symmetric size and enhancement. Vasculature: No aneurysm. Splenic, superior mesenteric and portal veins are patent. Lymph Nodes: No enlarged lymph nodes. Bowel: Enteric contrast isseen throughout nondilated loops of small bowel. Descending colon displaced anteriorly and to the left by the large left paracolic abscess. Peritoneum and mesentery: The left retroperitoneal and left paracolic gutter abscesses are in continuity best seen on series 3, image 86 and coronal series 5, image 86. Both of these abscesses have enlarged in the interval since May 15, 2017, left retroperitoneal abscess measures approximately 5.7 x 8.6 x 11.5 cm. The left paracolic gutter abscess measures ap proximately 8.2 x 6.5 x 14.9 cm. The pigtail drains in both of these abscesses remained well-positioned along the posterior aspects of the collections. Slight interval increased size of the left psoas abscess measuring 1.7 x 4.4 cm with phlegmonous material extending to the inferior pole of the left kidney. The left psoas abscess is also in continuity with the left retroperitoneal abscess. No new abscess. Abdominal wall: Pigtail drains in the left flank as described above. The left paracolic gutter extends along the left posterior abdominal wall musculature. Urinary Bladder: Minimally distended. Reproductive organs: Normal. Osseous structures: No osseous destruction at the level of the left psoas a bscess. Interval marked enlargement of the large left retroperitoneal and left paracolic gutter abscesses with well-positioned pigtail drains. The left psoas abscess has mildly increased in size and is in continuity with the left retroperitoneal abscess. Preliminary report signed by: Jorge Urbano at 05/24/2017 4:47 PM I have personally reviewed the image(s) and the residents interpretation and agree with the findings, Price Monae at 05/24/2017 4:[address] Abdomen & Pelvis W Contrast Result Date: 05/15/2017 EXAMINATION: CT ABDOMEN AND PELVIS W CONTRAST CLINICAL HISTORY: P/w abdominal pressure, retroperitoneal and abdominal abscesses, unknown cause, s/p IR drainage, interval assessment of abscess pockets and potential cause TECHNIQUE: Helical CT of the abdomen and pelvis was performed following the intravenous administration of contrast. 120 cc of Omnipaque 350 was given. Oral contrast was administered. COMPARISON: CT chest, abdomen, pelvis on 05/10/[address]-guided drain on 05/10/2017 FINDINGS: Lower chest: There is a trace amount of atelectasis at the left base. Liver: Normal size and attenuation without lesions. Bile ducts: Nondilated. Gallbladder: No calcified gallstones. Normal caliber wall. Pancreas: Normal attenuation without ductal dilatation. Spleen: Normal. Adrenals: The bilateral adrenal glands are normal in size. There is some stranding within the fat adjacent to the left adrenal gland from the psoas abscess. Kidneys: Prompt symmetric enhancement. Bilateral symmetric course nodular cortical irregularities could be due to lobulation versus history of infections. No hydronephrosis present on today's exam. No areas of abnormal perfusion to suggest infarct or nephronia. Vasculature:No aneurysm. Lymph Nodes: Prominent mary hepatis and aortocaval lymph nodes are likely attributableto the left retroperitoneal infection. Bowel: Oral contrast reaches the rectum. No dilated small or large bowel. There is diverticulosis of the descending and sigmoid colon without evidence of diverticulitis. No extravasation of contrast is present. The appendix and terminal ileum are normal. Retroperitoneum, Peritoneum and mesentery: No intraperitoneal free fluid or free air. As on previous studies there is a loculated abscess along the left iliopsoas and left lateral abdominal oblique musculature.Both collections show interval decrease in size with near resolution of the left lower quadrant abdominal wall abscess. The two percutaneous drains are appropriately positioned within the collections. There does remain some fluid within the left psoas abscess with the collection now measuring approximately 3.5 x 7.2 x 17 cm (previously 7 x 11 x 20 cm on 05/10/2017 by my measurement). No new undrained retroperitoneal abscesses are identified. Abdominal wall: As reported above, there is near resolutionof the left lower quadrant abdominal wall abscess compared to the 05/10/2017 CT with almost no appreciable residual fluid collection. Urinary Bladder: Normal. Reproductive organs: Normal. Osseous structures: No suspicious lesions. Status post percutaneous drainage of left psoas abscess and left lower quadrant abdominal wall abscess. There is interval resolution of the left lower quadrant abdominal wall abscess and interval reduction in size in the left psoas abscess as detailed above. Both percutaneous drains remain appropriately positioned within the target abscesses. No new intra-abdominal abscesses are present. The underlying cause of the abscesses is not identified on today's exam. 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 COMPARISON: None FINDINGS: No radiopaque foreign body is seen in the region of the orbits. Dental hardware is noted in the left aspect of the oral cavity. No radiopaque foreign body in the region of the orbits. Xr Abdomen Flat & Upright Result Date: 05/12/2017 EXAMINATION: XR ABDOMEN FLAT AND UPRIGHT CLINICAL HISTORY: Determine ability to perform swallow study TECHNIQUE: Supine and upright views of the abdomen COMPARISON: None FINDINGS: Left sided abdominal pigtail drains. No radiographic evidence of free air. Imaged portions of lung bases unremarkable. No abnormally distended loops of small bowel though scattered air-fluid levels are noted. Air- filled loops of large bowel are not abnormally distended without air-fluid level. No abnormal soft tissue masses. Opacified diverticula noted within the left colon. No radiographic evidence of obstruction or perforation. Ct Guided Drain Retroperitoneal Abscess Result Date: 05/14/2017 IR PROCEDURE NOTE: CT-guided left paracolic abscess drain placement INDICATION: Left paracolic gutter abscess 61 year old male with large retroperitoneal abscess status post IR drain placement 04/27/2017 and drain upsizing 05/02/2017. He presented for CT scan to evaluate this retroperitoneal abscess where he was found to have a new 23 cm collection in the left paracolic gutter. IR has been consulted for CT guided drain placement. TECHNIQUE: After discussing the the risks (including infection and hemorrhage), and benefits, the patient consented to the procedure. Due to the painful nature of the procedure, split doses of fentanyl and versed were administered by the IR nurse during continuous monitori ng of pulse, blood pressure and oxygen saturation. The lesion was localized with CT. After sterile preparation of the overlying skin, approximately 7 cc of 1% lidocaine SQ was administered for anesthesia, and an 18 ga needle was advanced under CT guidance into the collection. Pinkish brown opaque purulent fluid was aspirated. Over an .035 guidewire, the tract was dilated to 10 Fr, and a 10 Fr locking pigtail drain was placed. The catheter was secured to the skin and left to bulb suction drainage. Post-procedure CT images were obtained. The patient tolerated the procedure well. There were no immediate complications. Contrast: 0 cc EBL: 0 cc. FINDINGS: 1. Large left paracolic abscess with pinkish brown opaque purulent fluid aspirated and sent to the laboratory for analysis. 2. Post procedure CT demonstrated pigtail catheter drain appropriately positioned within the left paracolic abscess. : Technically successful drain placement in left paracolic gutter abscess. RECOMMENDATIONS: 1. Please keep drain to bulb suction. 2. Please record drain outputs Qshift and PRN full bulb 3. Flush drain with 5-10 cc NS BID Resident: Kiara Lucero MD Attending: Sumeet Salinas MD I, Dr. Salinas, was present throughout the procedure. I was present during the intraservice time as documented by the IR Nurse. Ct Chest Abdomen Pelvis W Contrast (generic) Result Date: 05/10/2017 EXAMINATION: CT CHEST ABDOMEN PELVIS W CONTRAST (GENERIC) CLINICAL HISTORY: Eval progression of retroperitoneal abscess TECHNIQUE: Helical CT of the chest, abdomen, and pelvis was performed following intravenous administration of 120 ml of Visipaque 320. Oral contrast was administered. COMPARISON: CTabdomen and pelvis April 30, 2017 FINDINGS: Chest: Lungs and large airways: Improved aeration at the left lung base with small amount of residual bandlike atelectasis and trace left pleural fluid. Pleura: Trace residual left pleural fluid. No air within the pleural fluid. Heart/vasculature: Heart size is normal. Normal caliber of the thoracic aorta. Lymph nodes/Mediastinum/Asael: No pathologically enlarged lymph nodes. Abdomen/pelvis: Liver: Fanta's lobe. No lesion. Bile ducts: Nondilated. Gallbladder: Cholelithiasis. Contracted gallbladder. Pancreas: Normal attenuation without ductal dilatation. Spleen: Displaced anteriorly by the left retroperitoneal collection. Splenomegaly measuring 19 cm cranial caudal dimension. Adrenals: Inflammatory changes surrounding the left adrenal gland and mild anterior displacement by the left retroperitoneal collection. Punctate calcification in the medial limb of the right adrenal gland. Kidneys: Anterior displacement of the left kidney by the left retroperitoneal collection. Normal enhancement of the left kidney. Lobulated contours of both kidneys. No urinary collecting system dilatation. Punctate nonobstructing left lower pole calculus. Vasculature: No aneurysm. Minimal atherosclerosis. Splenic, superior mesenteric and portal veins are patent. Lymph Nodes: No pathologically enlarged lymph nodes. Bowel: Nondilated, no wall thickening. Colonic diverticulosis. There is a fat plane between the colon and the left paracolic collection. No extravasated entericcontrast. Of note the enteric contrast was not reached the descending colon. Peritoneum and mesentery: A left posterior approach pigtail catheter is satisfactorily positioned and the middle of the leftretroperitoneal collection which has increased in size measuring 7.5 x 11.0 x 19.7 cm, previously measuring 6.0 x 11.2 x 17.6 cm. Multiple foci of air persists within the. This is contiguous with an enlarging left psoas collection. Where there was previously inflammatory changes and phlegmon along theleft flank there is a newly organized 11.7 x 10.0 x 23.3 cm collection extending along the left paracolic gutter and extending anteriorly and inferiorly to the region of the left inguinal canal. Abdominal wall: Due to the patient's abdominal girth and the percutaneous entry site of the left sided pigtail drain is not seen. Urinary Bladder: Normal. Reproductive organs: Prostate is not enlarged. Osseous structures: New air within the L2-L3 disc space. No endplate irregularity. However this disc space is in continuity with the abnormal left psoas muscle. 1. Mild interval enlargement of a large left retroperitoneal abscess contiguous with enlarging left psoas collection. A pigtail catheter remains satisfactorily centered within the retroperitoneal collection. 2. Interval organization and development of a 23 cm collection in the left paracolic gutter likely a separate abscess. 3. New air within the L2-L3 intervertebral disc which is at the level of theleft psoas abscess, consider MR to evaluate for discitis-osteomyelitis. 4. Trace residual left pleural fluid and left basilar atelectasis. 5. Moderate splenomegaly. Discussed with Dr. Kincaid by Dr. Urbano via telephone on May 10, 2017 at 1130am. Preliminary report signed by: Jorge Urbano at 05/10/2017 11:53 AM I have personally reviewed the image(s) and the residents interpretation and agree with the findings, Chandrika James at 05/10/2017 12:19 PM Ir Drain Check/change/remove Result Date: 05/28/2017 VASCULAR AND INTERVENTIONAL RADIOLOGY PROCEDURE NOTE Procedure: Abdominal and retroperitoneal drain check and replacement Indication for Procedure: Abdominal and retroperitoneal abscesses, decreased drain output and leakage from drain hubs Technique: Prior to beginning the procedure, a standard time out Moment of Truth was performed to confirm all law aspects (including the patient's identity, informed consent, medical record number, allergies, planned procedure and laterality if appropriate) all of which were correct. The patient was positioned right lateral decubitus on the procedure table. Theabdominal and retroperitoneal drains and surrounding skin were prepped and draped. Maximal sterile barrier technique was used throughout the procedure. Automatic Grinder Operator image was obtained. The retroperitoneal drain was aspirated and then flushed with less than 10cc of normal saline. Under fluoroscopy, contrast was then injected through the retroperitoneal drainage catheter. After confirming positioning, the drain was then exchanged over a wire for a new 12 Fr drain. Drain position was confirmed with fluoroscopy and secured in place to the existing stay suture. The catheter was flushed with normal saline and placed back to bag drainage. Subsequently, the abdominal drain was inspected and replaced in a similar fashion. Medications: Lidocaine topical jelly Contrast: 10 mL Omnipaque 350 used; 40 mL discarded. Fluoroscopy Time: 4.70 mins EBL: 0 cc Complications: No immediate Findings: 1) The abdominal and retroperitoneal drains were noted to be in appropriate position. 2) Both drains were noted to be broken/cracked at the external hub. There was leakage of saline around the hub at the time of flushing. 3) Approximately 50cc and 15cc of tannish brown purulent material aspirated from the retroperitoneal and abdominal collections respectively. 4) Collections appear to have a mixed solid and fluid component, the solid component caused partial occlusion of the abdominal drain, which subsequently resolved with intra-procedure flushing and repositioning. Impression: Abdominal and retroperitoneal drains broken atexternal hub less than 24 hours following most recent exchange. Both drains successfully exchanged with new 12 Fr drains. Plan/Disposition: 1) To Angio recovery room, may discharge to home when meets cr iteria. 2) Both drains to bag drainage. 3) Monitor/Record output. 4) Routine dressing changes per RNprotocol. 5) Follow up as outpatient for drain check in approximately 2 weeks. (Order entered and IRscheduler notified.) Explosive Ordnance Disposal Manager(s): Resident/Fellow: Anlge Mayer MD (PGY 2) Attending: Dr. Elidia Horn, Dr. Brenner, was present and scrubbed for the entire procedure. Ir Drain Check/change/remove Result Date: 05/27/2017 IR PROCEDURE NOTE ?? Procedure: Exchange of pigtail drainage catheters. ?? Indication for Procedure:Per Daniel Mccoy??is a 61 y.o.??male??with hx of morbid obesity, HTN, initially presented on 04/27 with retroperitoneal abscess, underwent IR drainage on 04/27. Had repeat imaging on 05/10 showing new abdominal collection along with persistent retroperitoneal collection. Abdominal collection was drained on 05/11. Patient presented to surgery clinic on 05/24 with report of decreasing drainoutput (primarily abdominal, also retroperitoneal) and LLQ pressure. ? Now with drains cracked athubs. ? Plan for check of both retroperitoneal and abdominal drains and replacement. ? 04/27/17 - CT-guided retroperitoneal abscess drain placed (10 Fr locking pigtail) ? 05/02/17 - Left retroperitoneal drain exchange, upsized to 12 Fr ? 05/10/17 - CT-guided left paracolic abscess drain placement, 10 Fr locking loop ? 05/25/17 - Both drains swapped to 12 Fr ?? Procedure events and findings: After obtaining informed consent, patient was positioned right side down on procedure table and sterile prep and drape performed of both drains. Maximum sterile barrier technique was used throughout.Contrast injected via the more posterior drainage catheter showed pigtail in fluid containing space.Catheter was cut and removed over a guide wire. A new 12Fr locking loop catheter was placed via the guide wire, position confirmed with contrast injection. Catheter was anchored with suture and connected to bulb drainage. ?? The same procedure was used to exchange the more anterior drainage catheter. A nother locking loop 12Fr catheter was placed. The catheter was also within a cavity with fluid, position confirmed with contrast injection. Catheter was anchored with suture and connected to bulb drainage. ?? Medications: 1% Lidocaine <10ccs subcutaneous. ?? Est Blood Loss: <5cc. ?? Complications: No immediate. ?? Impression: Exchange of pigtail drainage catheters, both 12Fr. ?? Resident/Fellow: Dr. Mayer ?? Attending: I, Dr. Sr performed this procedure. ? Ir Drain Check/change/remove Result Date: 05/26/2017 IR Procedure Note ?? Procedure: Left retroperitoneal and left abdominal drain exchange ?? History/indication: 61 yr old M patient, presenting with abdominal pain; CT scan showed a large collection in the left retroperitoneum and left paracolic gutter. Drains placed in left retroperitoneal collection and left lower quadrant abominal collection. Now, drains with decreasing output, increased size of collections on recent CT. ?? Technique: After obtaining informed consent the patient was positioned supine with the left side elevated. The existing drains and surrounding skin were prepped and draped in asterile fashion. 1% lidocaine was used as local anesthesia. The patient received split doses of intravenous fentanyl from the IR nurse while pulse, pressure, end tidal CO2 parameters and oxygen saturation were continuously monitored. Contrast was injected in both the retroperitoneal and abdominal drains. Over an Amplatz wire, the left retroperitoneal drain was exchanged for a 12 Fr drainage catheter.The locking loop was formed and 10 cc of nunes, purulent fluid was aspirated by syringe. The catheter was secured to the adjacent skin with 2-0 nylon suture material and connected to bulb drainage. Attention was then directed to the left lower abdominal wall drain. Over an Amplatz wire, the abdominal drain was exchanged and upsized to a 12 Fr drainage catheter. The locking loop was formed and 10 cc of nunes, purulent fluid was aspirated by syringe. The catheter was secured to the adjacent skin with 2-0 nylon suture material and connected to bulb drainage. The patient tolerated the procedure well. ?? Complications: None immediate; EBL=0 Medications: 1% lidocaine (<10 cc); Fentanyl 75 mcg Contrast: 20cc Omnipaque 350 Fluoroscopy time: 4.1 minutes Impression: - Retroperitoneal drain exchange (12Fr) to bulb drainage - Exchange and upsize of abdominal drain (10 Fr > 12 Fr) to bulb drainage - Plan: - Flush each drain with 5-10 cc normal saline q 8 hours - Monitor and document drain output q shift -Drain check in 2-3 weeks Fellow: Nerissa Attending: Dr. Salinas I, Dr. Salinas, was present throughout the procedure. I was present during the intraservice time as documented by the IR Nurse. Xr Fluoro Upper Gi Single Contrast Wo Kub Result Date: 05/14/2017 EXAMINATION: XR FLUORO UPPER GI SINGLE CONTRAST WO KUB CLINICAL HISTORY: Abdominal fullness, retroperitoneal and abdominal abscesses, unknown source, r/o stomach perforation or cause for colections TECHNIQUE: Limited single contrast UGI was performed. Fluoroscopic spot films were obtained. Fluoro time: 0.38 minutes COMPARISON: CT chest, abdomen and pelvis 05/10/2017. FINDINGS: Oral contrast passed easily from the esophagus into the stomach. Prompt gastric emptying with contrast passing easily into duodenum and proximal small bowel. There is no extravasation of contrast to suggest perforation. No extraluminal contrast is seen surrounding the left peritoneal drain. No evidence of gastric perforation on limited single contrast upper GI. I have personally reviewed the image(s) and the residents interpretation and agree with the findings, Isabel Lazcano at 05/14/2017 11:08 AM Assessment: Daniel Urena is a 61 y.o. male with recent surgery for intraabdominal and retroperitoneal abscesses on 05/31 who presented to clinic found to have L loculated pleural effusion on CT on 06/08. Ready for OR today Plan: OR today for L VATS decortication and bronch Post operative plan to be determined Nguyễn Smith MD 06/08/2017 Thoracic Surgery Service Pager [phone] Associated attestation - Haroon Cherry MD - 06/09/2017 6:50 PM EST I have seen the patient on 06/08/17 and reviewed the resident's above note and I agree with the details as written. The assessment and plan were formulated in discussion with me and I agree with them asdocumented. Haroon Cherry MD 06/09/2017 Ti Quintero RN - 06/07/2017 6:45 AM EST Pt arrived to unit. Changed into hospital gown, masimo initiated, call eaton explained and in reach. Handoff given to night RN. documented in this encounter H&P Notes Haroon Cherry MD - 06/07/2017 6:28 PM EST Department of Thoracic Admission Note HPI: Daniel Urena is a 61-year-old male with history of morbid obesity and hypertension who was most recently admitted on May 10, 2017 for persistent retroperitoneal abscesses of unknown origin. ??He was discharged on May 16, 2017 with both anterior and posterior Kevin-Frank drains placed by inte rventional radiology, and was sent home on a course of cipro and flagyl. This management proved unsuccessful, and he was taken to the OR by Dr. Mcgee for drainage of his abscesses on 05/31/2017 (findingsbelow). He presented today, 06/07, for follow up CT A/P which showed near-complete resolution of left paracolic gutter and retroperitoneal Abscesses, however revealed a significant effusion with loculations within the base and anterior aspects of the left pleural space. Mr. Urena reports feeling well since his discharge on the . He reports no chills, fevers, nausea, vomiting, or muscle aches. He does admit to a persistent hack which he reports is nothing new. In the office today, Dr. Mcgee removed 2 of the 3 drains placed in the OR. Given the findings on CT,he consulted Dr. Cherry who reviewed Mr. Urena's labs and imaging. Secondary Problems: Active Hospital Problems Diagnosis ??? Loculated pleural effusion Resolved Hospital Problems Diagnosis Date Resolved No resolved problems to display. Active Non-Hospital Problems Diagnosis ??? Abscess ??? Intra-abdominal abscess ??? Retroperitoneal abscess PMH/PSH: Past Medical History: Diagnosis Date ??? HTN (hypertension) ??? Obesity Past Surgical History: Procedure Laterality Date ??? ORCHIOPEXY Left ??? PRO LAP, ABD/PERIT/OMENTUM, UNLIST N/A 05/31/2017 LAPAROSCOPY, DRAINAGE ABD ABSCESS (WRVU *) performed by Gilson Mcgee MD at [facility] MAIN OR ??? PRO LAP, ABD/PERIT/OMENTUM, UNLIST N/A 05/31/2017 LAPAROSCOPY, TUMOR EXCISION, RETROPERITONEAL (WRVU *) performed by Gilson Mcgee MD at [facility] MAIN OR Operations/Major Procedures: Operations: 05/31/2017 Surgeon(s) and Role: * Gilson Mcgee MD - Primary * Price Juárez MD - Resident-Educational Psychologist * Julio C Kincaid MD - Resident-Educational Psychologist: Procedure(s): LAPAROSCOPY, DRAINAGE ABD ABSCESS (WRVU *) LAPAROSCOPY, TUMOR EXCISION, RETROPERITONEAL (WRVU *) ?? Operative Findings: 1. Retroperitoneal abscess pocket entered via cut down along IR drain, approximately 200 cc drained, cultures sent; 2. Abscess pocket explored using laparoscopy, well granulated connection visualized tracking along the lateral side-wall; 3. 19 Fr Ameya drain x2 placed into the abscess pocket (one down into the track and one into the body of the cavity) MEDICATIONS: Current Facility-Administered Medications on File Prior to Encounter Medication Dose Route Frequency Provider Last Rate Last Dose ??? [COMPLETED] iohexol (OMNIPAQUE) 350 mg/mL solution 0-200 mL 0-200 mL Intravenous Once PRN Rashmi Browning MD 120 mL at 06/07/17 1549 ??? [COMPLETED] iohexol (OMNIPAQUE) 350 mg/mL solution 50 mL 50 mL Oral Once PRN Price Monae MD 50 mL at 06/07/17 1549 Current Outpatient Prescriptions on File Prior to Encounter Medication Sig Dispense Refill ??? ciprofloxacin (CIPRO) 500 mg Tablet Take 1 tablet by mouth 2 times daily. 20 tablet 0 ??? metroNIDAZOLE (FLAGYL) 500 mg Tablet Take 1 tablet by mouth 3 times daily. 20 tablet 0 ??? traMADol (ULTRAM) 50 mg Tablet Take 1 tablet by mouth every 6 hours as needed for Pain. 10 tablet 0 ??? ibuprofen (ADVIL;MOTRIN) 600 mg Tablet Take 1 tablet by mouth every 6 hours as needed for Pain (for MILD pain (1-3)). 30 tablet 12 ALLERGIES: Allergies Allergen Reactions ??? Mold Other (See Comments) Drainage in his eyes, sinuses congest. ??? Tylenol [Acetaminophen] Causes acid reflux FAMILY HISTORY: Denies history of bleeding or clotting disorders. Denies history of reactions to anesthesia. Mother with brain tumor, brother with an aortic aneurysm No family history on file. SOCIAL HISTORY: Tobacco: [ ] denies [X] quit 27 yrs ago EtOH: [ ] denies [X] occasional [ ] binge [ ] xxx drinks per day Illicit Drugs: [X]denies Social History Social History ??? Marital status: Spouse name: N/A ??? Number of children: N/A ??? Years of education: N/A Occupational History ??? Not on file. Social History Main Topics ??? Smoking status: Former Smoker Packs/day: 4.00 Years: 22.00 Types: Cigarettes Start date: 04/28/1968 Quit date: 04/28/1986 ??? Smokeless tobacco: Former User Types: Chew Quit date: 04/28/2017 Comment: haven't used chew in a few weeks ??? Alcohol use Yes Comment: occasional ??? Drug use: No ??? Sexual activity: No Other Topics Concern ??? Not on file Social History Narrative REVIEW OF SYSTEMS: 12 point review of system otherwise negative except as above PHYSICAL EXAM: General: NAD, AO x 3 CV: RRR, no m/r/g, no carotid bruits appreciated Pulm: clear to ascultation, no wheezes or crackles Abd/Pelvis: soft, obese, non tender, non distended, L LATOYA drain with small amount of yellow brown, thick fluid Extremities: warm, 1+ edema Vascular: 2+dp/pt bilaterally LABS: No results found for this or any previous visit (from the past 24 hour(s)). IMAGING: CT Abdomen/Pelvis w Contrast 06/07 IMPRESSION 1. Essentially complete resolution of left paracolic gutter and retroperitoneal abscesses with drains remaining in place. There is persistent inflammatory stranding in the left retroperitoneum extending down the left paracolic gutter. 2. New loculated left pleural effusion containing air concerning for empyema. ASSESSMENT: This is a 61 y.o., male, with a PMH of HTN and morbid obesity, who recently underwent surgical drainage of retroperitoneal abscesses with drain placement on 05/31/17. He presented for follow up today andwas found to have a loculated pleural effusion of his left lung on CT A/P. Given the close proximityof his previous abscesses, it is likely that this effusion was caused by local spread rather than a new separate process. Regardless he is a candidate for a L VATS decortication, which will be booked tomorrow morning. PLAN: -CT Chest tonight -OR tomorrow for Bronchoscopy and L VATS -Vanc/zosyn for broad coverage, narrow with micro from OR -Type and screen, follow up: CMP, Mg/phos, coags tomorrow am -Regular diet, NPO at midnight -IS x10/h -Activity as tolerated -Floor status, full code Nguyễn Smith MD 06/07/2017 6:59 PM Thoracic Surgery Department Pager [phone] I saw the patient with the resident at the time of the consult on 06/07/2017. I have reviewed the resident's above history and I agree with the details as written. I have edited the note where appropriate. I discussed the case with the resident at the time of the consult and reviewed the films at that time. The assessment and plan were formulated in discussion with me and I agree with them as documented. Haroon Cherry MD documented in this encounter Miscellaneous Notes Plan of Care - Vita Ballard, PT - 06/11/2017 12:29 PM EST Problem: Patient Care Overview Goal: Plan of Care Review Outcome: Outcome (s) achieved Date Met: 06/11/17 06/11/17 1041 Coping/Psychosocial Plan Of Care Reviewed With patient Physical Therapy Assessment Pt seen for skilled PT Please see the Rehab Evaluation Summaries report for objective data and specifics of today???s session. Pt tolerated eval well and demonstrates ind with all mobility including ascending/descending flt of stairs. Pt tends to move quickly,education given for pacing.No further PT needs. Plan is for DC to home later today.DC PT. Pertinent History of Current Problem: Daniel Urena is a 61-year-old male with history of morbid obesity and hypertension, retroperitoneal/intraperitoneal abscesses s/p lap drainage procedure, who presented to follow up and found to have a L loculated pleural effusion now s/p L VATS decortication 2 Days Post-Op Staff Mobility Recommendations: ind mobililty. Precautions/Restrictions: no known precautions/restrictions Anticipated Physical Therapy Frequency: evaluation only Anticipated Discharge Disposition: home with assist 2017 PT Evaluation Code Rationale: ?? Diagnosis & Pertinent Co-Morbidities, personal factors, and present illness affecting Plan ofCare: Patient Active Problem List Diagnosis Code ??? Retroperitoneal abscess K68.19 ??? Intra-abdominal abscess K65.1 ??? Abscess L02.91 ??? Loculated pleural effusion J90 Additional personal factors or co-morbidities that impact plan: ... ?? Total # of Factors: 0 1-2 3+ x ?? Examination of body system impairments, functional limitations and behaviors, and/or participation restrictions. Addressing 1-2 elements x Addressing 3 + elements Addressing 4 + elements ?? Clinical presentation: See assessment above. Stable/Uncomplicated Evolving/Fluctuating Symptoms Unstable/Unpredictable x ?? Clinical decision making of low complexity based on pt's functional performance as outlined in this evaluation. Pager: [phone] Vita Ballard PT 06/11/2017 Inpatient Physical Therapy Plan of Care - Coco Padgett, RN - 06/11/2017 2:15 AM EST Problem: Patient Care Overview Goal: Plan of Care Review Outcome: Ongoing (Interventions Implemented as Appropriate) 06/11/17 0210 Coping/Psychosocial Plan Of Care Reviewed With patient Plan of Care Review Progress progress toward functional goals as expected OUTCOME EVALUATION NOTE: OUTCOME SUMMARY: Daniel slept between care, ambulated to bathroom without issue, CT and LATOYA site CDI, states pain is tolerable and refused need to PRN medication. Refuses tylenol. All needs met, safety maintained, he Is hopeful to have drains D/C today and be discharged. PLAN MOVING FORWARD: Monitor drains and output INDIVIDUALIZED FALL PREVENTION INTERVENTIONS: Patient-specific fall risk factors per assessment: [current deficits]: CT Assistance [level of assistance required for transfers and ambulation: SBA Supervision [direct monitoring required during toileting and ADLs]: Arms reach Surveillance [continuous indirect monitoring]: chino Huff, near nurses station, call eaton in reach, bed in lowest position Patient-specific fall prevention interventions for sensory deficits provided, if applicable: yes CPG GOAL OUTCOME EVALUATION: Goal: Individualization & Mutuality Outcome: Ongoing (Interventions Implemented as Appropriate) 06/09/17 1616 06/10/17 0824 Individualization Patient Specific Preferences Im allergic to Tylenol -- Mutuality/Individual Preferences What Anxieties, Fears or Concerns Do You Have About Your Health or Care? -- I am really sick of beibg in the hospital. Goal: Fall Prevention-Safe Patient Handling Outcome: Ongoing (Interventions Implemented as Appropriate) 06/09/17 0903 06/10/17199906/11/17 0210 Daily Care Interventions Self-Care Promotion -- -- independence encouraged;BADL personal objects within reach Gonzales Fall Risk History of Falling -- 0 -- Secondary Diagnosis -- 15 -- Ambulatory Aids -- 0 -- Intravenous Therapy/Heparin/Saline Lock -- 20 -- Gait/Transferring -- 0 -- Mental Status -- 0 -- Score -- 35 -- OTHER Gonzales Fall Risk -- Med -- Restraint Interventions Safety Promotion/Fall Prevention -- activity supervised;fall prevention program maintained;nonskid shoes/slippers when out of bed;safety round/check completed -- Positioning Body Position -- independent -- Activity Activity Type -- activity adjusted per tolerance -- Activity Assistance Provided -- assistance, stand-by -- Assistive Device Utilized cane -- -- Goal: Infection Control Outcome: Ongoing (Interventions Implemented as Appropriate) 06/10/171999 Safety Interventions Isolation Precautions standard precautions maintained Infection Prevention rest/sleep promoted;environmental surveillance performed Coping Strategies Supportive Measures active listening utilized;goal setting facilitated;positive reinforcement provided;verbalization of feelings encouraged Goal: Discharge Needs Assessment Outcome: Ongoing (Interventions Implemented as Appropriate) 06/11/17 0210 Discharge Needs Assessment Concerns To Be Addressed denies needs/concerns at this time Readmission Within The Last 30 Days previous discharge plan unsuccessful Equipment Needed After Discharge none Discharge Disposition still a patient Current Health Anticipated Changes Related to Illness none Living Environment Transportation Available car;family or friend will provide Activity/Self Care Review of Systems Equipment Currently Used at Home none Plan of Care - Leslie Lopez RN - 06/10/2017 5:24 PM EST Problem: Patient Care Overview Goal: Plan of Care Review 06/08/17195306/10/17 1317 Coping/Psychosocial Plan Of Care Reviewed With -- patient Plan of Care Review Progress progress toward functional goals is gradual -- OUTCOME EVALUATION NOTE: OUTCOME SUMMARY: It has been a quiet day for Daniel. He has had no complaints of pain, VSS and he is getting up and walking independently in his room. One of his chest tubes was removed today and he is anxious for the other one to go so he can go home. Will continue to monitor. PLAN MOVING FORWARD: monitor chest tubes, monitor painf INDIVIDUALIZED FALL PREVENTION INTERVENTIONS: Patient-specific fall risk factors per assessment: [current deficits]: Generalized weakness Assistance [level of assistance required for transfers and ambulation]: independent Supervision [direct monitoring required during toileting and ADLs]: independent Surveillance [continuous indirect monitoring]: Call eaton within reach, urinal within reach, hourly rounding, room near unit station Patient-specific fall prevention interventions for sensory deficits provided, if applicable: CPG GOAL OUTCOME EVALUATION: Plan of Care - Suzie Milton OT - 06/10/2017 1:23 PM EST Problem: Patient Care Overview Goal: Plan of Care Review Outcome: Ongoing (Interventions Implemented as Appropriate) 06/10/17 1317 Coping/Psychosocial Plan Of Care Reviewed With patient Occupational Therapy Evaluation Pertinent History of Current Problem: Daniel Urena is a 61-year-old male with history of morbid obesity and hypertension, retroperitoneal/intraperitoneal abscesses s/p lap drainage procedure, who presented to follow up and found to have a L loculated pleural effusion now s/p L VATS decortication 2 Days Post-Op Active Non-Hospital Problems Diagnosis ??? Abscess ??? Intra-abdominal abscess ??? Retroperitoneal abscess Precautions/Restrictions: fall Precautions Comments: Colton. chest tubes to waterseal Living Environment Comment: Patient has been staying at his daughter's home. 2 LUCAS with rail, then 6steps with a rail down into his bedroom. Walk in shower, no chair. Prior Functional Level Comment: Independent all ADL/IADL tasks. 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 Uses a cane for long distances. Daugther can provide assistance Assessment: Pt has been seen by OT for evaluation, please refer to associated flowsheet data for details. Daniel Urena presents with activity limitations and/or participation restrictions due to pain, decreased ROM and bilateral chest tubes. These impairments have a significant impact on the patient's performance in the following areas of occupation: BADLs, IADLs, work, leisure, driving, and social participation. Upon OT arrival, patient reported 5/10 pain and difficulty with functional tasks dueto his pain, decreased flexibility and bilateral chest tubes. Supervision was noted for bed mobility, transfers and LB ADL tasks. He reports difficulty with hygiene after toileting. It is anticipated that patient will be independent with the removal of his chest tubes. OT will continue to monitor and see once tubes have been removed to ensure independence. Pt would benefit from ongoing OT interventions to increase independence with self care and progress functional mobility while hospitalized. Therapy Frequency: 1-3 more visits Anticipated Equipment Needs at Discharge: shower chair Anticipated Discharge Disposition: home with assist Pager: [phone] SUZIE MILTON OT 06/10/2017 Occupational Therapy Rehabilitation Department 2017 OT Evaluation Code Rationale: ?? Diagnosis & Pertinent Co-Morbidities affecting Plan of Care: see PMHx above ?? Occupational Profile & Client History: Brief Expanded Extensive x ?? Assessment of Occupational Performance: 1-3 performance deficits x 3-5 performance deficits 5 + performance deficits ?? Clinical Decision Making: Low Moderate High x Clinical decision making of low complexity using standardized patient assessment instrument and measurable assessment of functional outcome. Problem: Acute Rehab Services Goal & Intervention Plan Goal: Toileting Goal Stand Alone Therapy Goal Outcome: Ongoing (Interventions Implemented as Appropriate) 06/10/17 1317 Toileting Goal Toileting Goal, Date Established 06/10/17 Toileting Goal, Time to Achieve 1 wk Toileting Goal, Activity Type Patient will complete toileting tasks (hygiene, clothing management, transfers) independently with AE, as needed Initial Assessments - Teena Evans RN - 06/10/2017 8:32 AM EST Office of Care Management Initial Assessment Teena Evans RN reviewed record and discussed patient with Care Team. Source of Information: Chart review, MD report, & patient interview. Introduced self/reviewed role; services accepted. Reason for Hospitalization: 61 y.o. male with recent surgery for intraabdominal and retroperitoneal abscesses on 05/31 who presented to clinic found to have L loculated pleural effusion on CT on 06/08 with Left VATS decortication Past Medical History: Diagnosis Date ??? HTN (hypertension) ??? Obesity Hospitalizations Within the Past 30 Days: yes Anticipated Length Of Stay (If known): 3-5 days Current Decision-Making Capacity: Patient alert, oriented, & able to make own choices. Advance Care Planning: Patient verbally assigned his daughter Agustin Urean as his POA. Current Coping/Education/Information Needs: Patient verbalized understanding of treatment to date & voiced frustration that etiology is unknown. Current Functional Ability: Out of bed ad julian. Functional Status Prior to Admission: Independent. Home Environment: Lives with his sister, but will be staying with daughter, Agustin, ([facility]) which has three levels. 6 stairs down to bedroom. Social & Family Supports/Community Resources: Sister & daughter are very supportive. Behavioral Health History: Denied. Substance Use/Abuse: Denied Other Pertinent/Service Specific Information: na Health/Prescription Coverage: Primary Insurance: Pt applied for and said he qualified for [employer]. Pt has not signed the final forms though. Pt mentioned that he has [employer] coverage for accidents. Pt also wondered if his abd. Abscess is related to my work. 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 I suggested he talk with HR at his work place. Secondary Insurance: N/A Prescription Coverage: No Preferred Pharmacy: [facility] in [place], [place] Primary Care Provider: Odalys Laird MD [phone] Patient/Caregiver Goals of Treatment: Control pain & discharge home when chest tube is removed. Potential Needs for Transition of Care: Rehab/SNF: na Home Health: Declined. DME: na Dialysis: na Community Resources: na Transportation: via car with family member. Anticipated Barriers to Discharge/Special Considerations: Patient has been admitted several times inpast couple of months for similar conditions. . Plan: CM will maintain contact with patient & providers to coordinate any services needed for discharge. Teena Evans paper control clerk Pager [phone] Plan of Care - Nini Omalley RN - 06/10/2017 8:29 AM EST Problem: Patient Care Overview Goal: Plan of Care Review Outcome: Ongoing (Interventions Implemented as Appropriate) 06/08/17 1954 06/09/17 2100 Coping/Psychosocial Plan Of Care Reviewed With -- patient Plan of Care Review Progress progress toward functional goals is gradual -- OUTCOME EVALUATION NOTE: OUTCOME SUMMARY: Patient denied pain over night. Slept well. Left Chest tube x 2 with minimal drainage. LATOYA with minimal drainage. Slept in naps. Patient required O2 ant 1 - 2 litter while sleeping. PLAN MOVING FORWARD: Encourage IS and deep breathing. INDIVIDUALIZED FALL PREVENTION INTERVENTIONS: Patient-specific fall risk factors per assessment: [current deficits]: chest tubes, weakness Assistance [level of assistance required for transfers and ambulation]: 1 assist Supervision [direct monitoring required during toileting and ADLs]: Hands on Surveillance [continuous indirect monitoring]: Call light in reach, purposeful rounds Patient-specific fall prevention interventions for sensory deficits provided, if applicable: [X] Yesadjust lighting. CPG GOAL OUTCOME EVALUATION: Plan of Care - Ti Quintero RN - 06/09/2017 5:28 PM EST Problem: Patient Care Overview Goal: Plan of Care Review Outcome: Ongoing (Interventions Implemented as Appropriate) 06/08/17195306/09/17 08 Coping/Psychosocial Plan Of Care Reviewed With -- patient Plan of Care Review Progress progress toward functional goals is gradual -- OUTCOME EVALUATION NOTE: OUTCOME SUMMARY: VSS. RA. Chest tubes CDI, changed to water seal today. +BMx1, AUOP. Vanc d/c'd. PO Flagyl and IV ceftriaxone initiated. Consistently refused IS. Encouraged ambulation. New IV in R placed. Previous IV's d/c r/t pain when flushing. PLAN MOVING FORWARD: Monitor for signs and symptoms of infection, bleeding, and pain. Encourage IS/ ambulation. INDIVIDUALIZED FALL PREVENTION INTERVENTIONS: Patient-specific fall risk factors per assessment: [current deficits]: IV lines, recent surgery, ageextreme, generalized weakness Assistance [level of assistance required for transfers and ambulation]: SBA Supervision [direct monitoring required during toileting and ADLs]: Eyes on Surveillance [continuous indirect monitoring]: Call eaton in reach, purposeful rounding, masimo Patient-specific fall prevention interventions for sensory deficits provided, if applicable: [X] YesLighting adjusted for tasks, nonskid socks when out of bed. CPG GOAL OUTCOME EVALUATION: Ongoing Goal: Individualization & Mutuality Outcome: Ongoing (Interventions Implemented as Appropriate) 06/09/17 1616 Individualization Patient Specific Preferences Im allergic to Tylenol Goal: Fall Prevention-Safe Patient Handling Outcome: Ongoing (Interventions Implemented as Appropriate) 06/09/17 0806/09/17 0903 Gonzales Fall Risk History of Falling 0 -- Secondary Diagnosis 15 -- Ambulatory Aids 0 -- Intravenous Therapy/Heparin/Saline Lock 20 -- Gait/Transferring 10 -- Mental Status 0 -- Score 45 -- OTHER Gonzales Fall Risk High -- Restraint Interventions Safety Promotion/Fall Prevention activity supervised -- Positioning Body Position (sitting at edge of bed) -- Activity Activity Type -- activity adjusted per tolerance Activity Assistance Provided -- assistance, stand-by Assistive Device Utilized -- cane Goal: Infection Control Outcome: Ongoing (Interventions Implemented as Appropriate) 06/09/17 0800 Safety Interventions Isolation Precautions standard precautions maintained Infection Prevention rest/sleep promoted Coping Strategies Supportive Measures active listening utilized Goal: Discharge Needs Assessment Outcome: Ongoing (Interventions Implemented as Appropriate) 06/08/171953 Discharge Needs Assessment Concerns To Be Addressed denies needs/concerns at this time Discharge Disposition still a patient Goal: Interdisciplinary Rounds/Family Conf Outcome: Ongoing (Interventions Implemented as Appropriate) 06/08/171953 Interdisciplinary Rounds/Family Conf Participants patient;nursing;physician Consult Note - Yoel Lucia MD - 06/09/2017 5:16 PM EST INFECTIOUS DISEASE INITIAL CONSULT NOTE Reason for Consult: Empyema Consulting Service: Thoracic surgery Consulting Attending: Haroon Cherry MD Admission Date: 06/07/2017 History of Present Illness: 61 y.o. male with a history of a retroperitoneal abscess and a newly found empyema. He is well knownto the ID service, and was last seen by Dr. Price Quezada on 06/06 in clinic, who documented the following: 'Mr. Urena is a 61y/o M who was admitted 04/27/16-05/04/17 for management of a large left retroperitoneal fluid collection inseparable from the left iliopsoas muscle. Of note, he had undergone a lefttesticle orchiopexy procedure two weeks prior to this admission for a concern about torsion. He askstoday whether that could have been the cause of his infection, although it sounds like he had left-sided abdominal, flank, and groin pain pre-dating this procedure. ?? In reviewing the original images with radiology, this abscess abutted the left kidney, but it didnot seem to originate from the kidney. Mr. Urena's most significant symptoms included a 50 lbs weight loss and some diarrhea. In terms of other contiguous abdominal organs as potential sources, radiology saw no obvious masses in the colon, and in the absence of an alternative etiology, they raised the possibility of an infection of a pre-existing hematoma. CT guided drainage on 04/27/18 identified a single pathogen (E. coli), and he was treated with cefepime/metronidazole transitioned to Bactrim. Blood cultures were negative on 04/28/18. ?? On 05/10/17, Mr. Urena was readmitted after an CT for interval follow-up revealed enlargement of the previously identified left retroperitoneal abscess, along with identification of a new 23cm left paracolic gutter abscess. This CT also showed new air within the L2-L3 intervertebral disc raising a concern for discitis-osteomyelitis, but a MRI on 05/13/17 showed no findings to suggest discitis-osteomyelitis. A new CT-guided drain was placed on 05/10/17, with cultures from this drain remaining negative. An abdominal CT done on 05/15/17 showed interval resolution of the LLQ abdominal wall abscess and intervalreduction in the size of the left psoas abscess. In speaking with radiology, they suggested that thetwo collections might have been connected and drained by the second drain, but they also raised the possibility that Mr. Urena has not been adequately flushing his first drain at home. This is something that he denied. We recommended 4 weeks of treatment with ciprofloxacin plus metronidazole with ID follow-up prior to stopping antibiotics. ?? Since I last saw Mr. Urena during his 05/10/17-05/16/17 admission, he was readmitted from 05/24/17-05/26/17 for decreasing drain output requiring drain exchange and up-sizing. A culture obtained on 05/25/17 grew rare coagulase negative Staphylococcus, but his ciprofloxacin plus metronidazole were not adjusted at that time. ID was not consulted. He was then readmitted again from 05/31/17-06/01/17 for laparoscopy and abscess drainage. While the Gram stain showed many WBCs, both the aerobic and anaerobic cultures have remained negative for ~1 week.He is scheduled for a repeat abdominal CT tomorrow on 06/07/17.' At that time, Dr. Quezada advised to continue ciprofloxacin/metronidazole at least until his repeat CT was completed. That CT showed: 1. Essentially complete resolution of left paracolic gutter and retroperitoneal abscesses with drains remaining in place. There is persistent inflammatory stranding in the left retroperitoneum extending down the left paracolic gutter. 2. New loculated left pleural effusion containing air concerning for empyema. Mr. Urena was admitted to the thoracic surgery service on 06/07, had a dedicated CT of the chest showing a small, loculated left pleural collection containing foci of air concerning for empyema, a small left apical pneumothorax and a collapse of the majority of the left lower lobe with possible airspace consolidation, concerning for infection. He underwent bronchoscopy and decortication on 06/08, with the following findings per the OR note: Normal bronch Extensive inflammatory ring with fluid, 800 cc effusion drained, sent for culture and pathology Good re-expansion of lung following decortication 2x 28 Fr chest tubes placed Mr. Urena says that he has not felt well since he became ill initially, more than two months ago.No recent worsening, though. He has had dyspnea for a long time, no worse. No cough, no chest pain. No fevers, no night sweats. Tolerating ciprofloxacin and metronidazole without abdominal discomfort or loose stools. He is now suffering pain from the chest tubes. Review of Systems: Pertinent positives and negatives noted in HPI. All other systems reviewed and found negative. Allergies: Allergies Allergen Reactions ??? Mold Other (See Comments) Drainage in his eyes, sinuses congest. ??? Tylenol [Acetaminophen] Causes acid reflux Past Medical and Surgical History: Past Medical History: Diagnosis Date ??? HTN (hypertension) ??? Obesity Past Surgical History: Procedure Laterality Date ??? ORCHIOPEXY Left ??? PRO LAP, ABD/PERIT/OMENTUM, UNLIST N/A 05/31/2017 LAPAROSCOPY, DRAINAGE ABD ABSCESS (WRVU *) performed by Gilson Mcgee MD at [facility] MAIN OR ??? PRO LAP, ABD/PERIT/OMENTUM, UNLIST N/A 05/31/2017 LAPAROSCOPY, TUMOR EXCISION, RETROPERITONEAL (WRVU *) performed by Gilson Mcgee MD at [facility] MAIN OR Family History: No family history of recurrent infections. Social History and Habits: Social History Social History ??? Marital status: Spouse name: N/A ??? Number of children: N/A ??? Years of education: N/A Occupational History ??? Not on file. Social History Main Topics ??? Smoking status: Former Smoker Packs/day: 4.00 Years: 22.00 Types: Cigarettes Start date: 04/28/1968 Quit date: 04/28/1986 ??? Smokeless tobacco: Former User Types: Chew Quit date: 04/28/2017 Comment: haven't used chew in a few weeks ??? Alcohol use Yes Comment: occasional ??? Drug use: No ??? Sexual activity: No Other Topics Concern ??? Not on file Social History Narrative Physical Exam: Last value Range last 24 hrs Temperature Temp: 36.5 ??C (97.7 ??F) Temp: [36.5 ??C (97.7 ??F)-37.2 ??C (99 ??F)] Heart Rate Heart Rate: (!) 107 Heart Rate: [107] Blood Pressure BP: 136/84 BP: (128-136)/(79-84) Respiratory Rate Resp: 17 Resp: [17-18] SpO2 SpO2: 96 % SpO2: [92 %-97 %] General Not acutely ill, alert and oriented, very obese HEENT No scleral icterus Heart Regular, no murmur Lungs Diffuse rhonchi Two chest tubes on left lateral chest Melinda on left chest wall Abdomen Normoactive bowel sounds, soft, not tender Bulb drainage in left flank with sanguinous fluid Extremities No joint swelling, no edema Skin No rash Neuro Grossly intact Lines No central lines Laboratory: Recent Labs 06/08/17 0540 06/06/17 1708 WBC 8.1 11.4* HGB 10.0* 10.8* HCT 31.2* 33.7* PLATELET 332 413* Recent Labs 06/08/17 0540 NA 140 K 4.0 CL 100 CO2 26 BUN 9* CREATININE 0.95 Recent Labs 06/08/17 0540 AST 10 ALT <5 ALKPHOS 52 BILITOT 0.4 CRP (mg/L) Date Value 06/06/2017 152.1 (H) Microbiology: 06/08 Empyema culture 3 samples with few WBC, no organisms; culture without growth so far Abscess Cultures: 04/27/17 abdominal abscess negative gram stain, culture with many simmons-sensitive E.coli Drain Cultures: 05/25 left LATOYA drain rare coagulase-negative staphylococcus (though to be a contaminant) Radiology/Studies/Procedures: 06/07/17 CT chest with contrast 1. Small, loculated left pleural collection containing foci of air concerning for empyema. 2. Small left apical pneumothorax. 3. Collapse of the majority of the left lower lobe with possible airspace consolidation, concerning for infection. Assessment: Daniel Urena is a 61 y.o. male who has been treated since 04/27/17 for a large left retroperitoneal abscess with percutaneous drains and antibiotics. The only recovered organisms is a simmons-sensitive E.coli grown from the initial CT- guided drainage on 04/27. He has been on various antibiotics, most recently on oral ciprofloxacin and metronidazole from 05/15/17 onward. Of note, the etiology of this abscess remains elusive, although the most proximal event to his initial presentation was a left orchidopexy two weeks prior for possible testicular torsion. He was now found to have a left loculated pleural effusion on routine surveillance CT obtained to follow up the retroperitoneal abscess. While there was no pleural fluid on an abdominal CT scan from 05/24, it seems plausible that the effusion and abscess are related. He underwent successful decortication on 06/08, with negative gram stains and cultures for far. Based on his known E.coli infection, and in the absence of organisms on gram stain, it seems unlikely that he has Pseudomonas or Staphylococcus aureus, so vancomycin and piperacillin/tazobactam are probably not indicated. We therefore recommend narrowing his antibiotics to ceftriaxone and metronidazole while in house. Depending on his cultures and clinical course, he might not need further antibiotics on discharge or could be treated with oral antibiotics, so we recommend holding off on a PICC. Recommendations: - stop vancomycin and piperacillin/tazobactam - start ceftriaxone 2 gram IV daily - start metronidazole 500 mg PO q8h - follow up cultures - no PICC for now - definitive course of antibiotics to be determined This patient was seen and discussed with ID attending Dr. Lucia. Recommendations discussed with primary treating team. ID consult service will continue to follow patient. Do not hesitate to page us at [phone] with any further questions or concerns. Meir Colindres MD Infectious Disease Fellow Pager [phone] I have seen and examined this patient. I have reviewed and agree with the history, findings, assessment, and plan of care as documented by Dr. Colindres's note. I have personally reviewed the patient'smedical record and pertinent lab and radiographic studies. The assessment and plan of care were formulated in discussion with me, and I agree with them as documented. 61 yo male with a recent h/o an infected left retroperitoneal fluid collection involving the left iliopsoas muscle which grew E. coli for which he has undergone multiple drainage procedures (both CT guided drainage and a recent Laparoscopic drainage 05/31/17). He has been on Cipro/Flagyl with a tentative plan for approximately 4 weeks of therapy, and recent f/u CT scan showed near complete resolution of abdominal abscesses. CT scan, however, did reveal a new Left empyema for which patient underwent decortication and drainage on 06/08 with initial removal of 800 cc's of exudative fluid. Empyema possibly due to extension of intra-abdominal process. Cultures so far are showing NGTD. I agree with having patient on antibiotics pending pleural fluid cultures, but I don't think he needs the broad coverage of Zosyn and Vanco -- MRSA and highly resistant GNRs seem unlikely. Would recommend switching to Ceftriaxone and Flagyl to cover gram positives, the E. coli which has previously grown from intra-abdominal cultures, and possible anaerobes. Further recommendations dependent on culture results. Yoel Lucia MD, MPH Infectious Disease Attending Plan of Care - Kirsten Aaron RN - 06/08/2017 8:06 PM EST Problem: Patient Care Overview Goal: Plan of Care Review Outcome: Ongoing (Interventions Implemented as Appropriate) 06/08/171953 Coping/Psychosocial Plan Of Care Reviewed With patient Plan of Care Review Progress progress toward functional goals is gradual OUTCOME EVALUATION NOTE: OUTCOME SUMMARY: Patient is alert and cooperative with care. He was FAVIO from after 1300 until around 1830. He was restarted back on his LR at 75 ml/hr. He is on 2 liters via NC and has 2 new left flank chest tubes y-sited to suction. His left flank LATOYA and 10 melinda at his post lower back remains LOTA. He is tired andresting, he declined dinner, but is sipping on nithin pat. SCD machine was reordered. I asked him ifhe wanted me to contact his family before going to the OR, however, he declined. No s/sx of any respiratory distress upon return, no cough, drainage, or crepitus noted. PLAN MOVING FORWARD: Monitor chest tubes and LATOYA drain. Monitor pain level. Monitor I & O's. INDIVIDUALIZED FALL PREVENTION INTERVENTIONS: Patient-specific fall risk factors per assessment: [current deficits]: Generalized weakness, 2 new chest tubes and previous LATOYA drain, new O2 requirement. Assistance [level of assistance required for transfers and ambulation]: 1 assist, Supervision [direct monitoring required during toileting and ADLs]: Post O.R. He may need supervision, help with his chest and drain tubing. Surveillance [continuous indirect monitoring]: Purposeful rounding done. Patient-specific fall prevention interventions for sensory deficits provided, if applicable: CPG GOAL OUTCOME EVALUATION: Goal: Fall Prevention-Safe Patient Handling Outcome: Ongoing (Interventions Implemented as Appropriate) 06/08/17 0800 06/08/1791406/08/17 1300 Gonzales Fall Risk History of Falling -- 0 -- Secondary Diagnosis -- 15 -- Ambulatory Aids -- 0 -- Intravenous Therapy/Heparin/Saline Lock -- 20 -- Gait/Transferring -- 10 -- Mental Status -- 0 -- Score -- 45 -- OTHER Gonzales Fall Risk -- High -- Restraint Interventions Safety Promotion/Fall Prevention -- activity supervised;fall prevention program maintained;nonskid shoes/slippers when out of bed;safety round/check completed -- Positioning Body Position -- supine -- Activity Activity Type ambulated to bathroom;ambulated in room -- -- Activity Assistance Provided -- -- independent Assistive Device Utilized -- -- none (Holds onto IV pole.) Goal: Infection Control Outcome: Ongoing (Interventions Implemented as Appropriate) 06/08/17914 Safety Interventions Isolation Precautions standard precautions maintained Infection Prevention environmental surveillance performed;single patient room provided Coping Strategies Supportive Measures active listening utilized;self-care encouraged;relaxation techniques promoted;verbalization of feelings encouraged Goal: Discharge Needs Assessment Outcome: Ongoing (Interventions Implemented as Appropriate) 06/08/171953 Discharge Needs Assessment Concerns To Be Addressed denies needs/concerns at this time Discharge Disposition still a patient Goal: Interdisciplinary Rounds/Family Conf Outcome: Ongoing (Interventions Implemented as Appropriate) 06/08/171953 Interdisciplinary Rounds/Family Conf Participants patient;nursing;physician Brief Op Note - Cony Dove MD - 06/08/2017 4:30 PM EST Brief Operative Note Patient Name: Daniel Urena : [id number] MR#: [id number] Case Date: 06/08/2017 Surgeon: Surgeon(s) and Role: * Haroon Cherry MD - Primary * Cony Dove MD - Resident-Educational Psychologist Preoperative diagnosis: empyema Postoperative diagnosis: * No post-op diagnosis entered * Procedure(s) (LRB): @THORACOSCOPY, SURG; W TOTAL DECORTICATION (WRVU 29.13) (Left) BRONCHOSCOPY, DIAGNOSTIC (WRVU 2.78) (N/A) Anesthesia: General Findings: Normal bronch Extensive inflammatory ring with fluid, 800 cc effusion drained, sent for culture and pathology Good re-expansion of lung following decortication 2x 28 Fr chest tubes placed Complications: none Intake: 500cc LR Transfusion No data found. Output: Estimated Blood Loss: 100cc Urine Output:: (no blood products) Other Output: (no other output recorded) Drains: 28 Fr chest tubes Specimens removed during surgery: Order Name Source Comment Collection Info Order Time CYTOPATHOLOGY NON-GYNECOLOGICAL 06/08/2017 3:13 PM Pertinent clinical data and significant therapy: Empyema Clinical impression: Empyema Procedure Type: Other (please specify in comments) Sample Type: Pleural fluid (thoracentesis) Description and source of specimen: Laparoscopic SPECIMEN TO PATHOLOGY Empyema LEFT Pleural RInd POSTERIOR Other (enter in comments) 06/08/2017 3:13 PM Time removed from patient: 3:00 PM Disposition: awakened from anesthesia, extubated and taken to the recovery room in a stable condition, having suffered no apparent untoward event. Condition: doing well without problems Attestation: Case Date: 06/08/2017 (Please see the Surgical Encounter Summary for any Implant and Specimen details pertinent to this patient.) Op Note - Haroon Cherry MD - 06/08/2017 2:00 PM EST [facility] [place] Operative Note Patient Name: Daniel Urena : [id number] MR#: [id number] Case Date: 06/08/2017 Surgeon: Surgeon(s) and Role: * Haroon Cherry MD - Primary * Cony Dove MD - Resident-Educational Psychologist Preoperative diagnosis: empyema Postoperative diagnosis: empyema, loculated pleural effusion Procedure(s) (LRB): @THORACOSCOPY, SURG; W TOTAL DECORTICATION (WRVU 29.13) (Left) BRONCHOSCOPY, DIAGNOSTIC (WRVU 2.78) (N/A) Findings: Normal endobronchial anatomy with some evidence of extrinsic compression of the left lowerlobe subsegmental bronchi. On VATS there were extensive adhesions surround the entire left lower lobe and parts of the left upper lobe. These were taken down. There was extensive loculated fluid and gel atinous material present. There was questionable purulent material present and significant pleural thickening, both on the lung and the posterior chest wall. The lung was totally decorticated. There was good re-expansion of both the upper and lower lobes. Two chest tubes were placed. Anesthesia: General Estimated Blood Loss: 100cc Specimens removed during surgery: Order Name Source Comment Collection Info Order Time CYTOPATHOLOGY NON-GYNECOLOGICAL 06/08/2017 3:13 PM Pertinent clinical data and significant therapy: Empyema Clinical impression: Empyema Procedure Type: Other (please specify in comments) Sample Type: Pleural fluid (thoracentesis) Description and source of specimen: Laparoscopic SPECIMEN TO PATHOLOGY Empyema LEFT Pleural RInd POSTERIOR Other (enter in comments) 06/08/2017 3:13 PM Time removed from patient: 3:00 PM Drains: 28F chest tube x2 Surgical Closure: primary closure Disposition: awakened from anesthesia, extubated and taken to the recovery room in a stable condition, having suffered no apparent untoward event. Condition: doing well without problems (Please see the Surgical Encounter Summary for any Implant and Specimen details pertinent to this patient.) HPI/Surgical Indications: 61 yo male with a PMH of HTN and morbid obesity, who recently underwent surgical drainage of retroperitoneal abscess with drain placement on 05/31/17. He presented for follow uptoday and was found to have a loculated pleural effusion of his left lung on CT A/P. Given the closeproximity of his previous abscesses, it is likely that this effusion was caused by local spread rather than a new separate process. Regardless, he is a candidate for a L VATS decortication. Today, we reviewed the risks of operation, including but not limited to infection, bleeding, pain, need for reoperation or thoracotomy, non- diagnostic procedure, organ failure, persistent air leak requiring prolonged chest tube drainage, stroke, major adverse cardiac event and . The patient expressed his understanding and wished to proceed as recommended. Procedure Description: Patient was identified in preoperative holding area. He was brought to the operating room. A second verification process including the patient's name, medical record number, dateof complaint procedure was performed. He was placed supine on the operating room table. Sequential compression devices were applied. He had received prophylactic dose of subcutaneous heparin within the last 24 hours. He received appropriate prophylactic/therapeutic antibiotics prior to the incision. General anesthesia was induced by the anesthesiology staff with double-lumen endotracheal tube. T his was confirmed be in appropriate position bronchoscopically. A timeout was performed. Flexible diagnostic bronchoscope was inserted down the endotracheal tube on the tracheal side. This demonstrated no evidence of any endobronchial abnormality at the dolores. Scope was advanced into the right mainstem bronchus and sequentially into the right upper, middle, and lower lobes. There is no evidence of any endobronchial abnormality on the right to the level of subsegmental bronchi. The scopewas removed and placed on the bronchial lumen. This demonstrated no evidence of any endobronchial abnormality in the mid or distal left mainstem. Scope was sequentially advanced into the left upper andlower lobes. There is no evidence of any endobronchial abnormality in the upper lobe. There was evidence of likely extrinsic compression in some of the subsegmental bronchi of the left lower lobe. The scope was removed. Patient was rotated into the right lateral decubitus position. He was prepped and draped in usual sterile fashion. He was appropriately padded in all areas prior to wrapping and draping. Approximately 5 mm incision was made in the sixth intercostal space posteriorly below the tip of thescapula. Blunt dissection was used to enter the left pleural space following isolation the left lung. This occurred easily and without incident. A 5 mm port was inserted and the thoracoscope was inserted. This demonstrated significant murky fluid present. There were also significant thinning adhesionscausing multiple loculations of this fluid throughout the chest. An additional port was then placed in the seventh intercostal space in the posterior axillary line. This was initially placed as a 5 mm port and was subsequently later upsized to a VATS port. It should be noted that the initial incision was also upsized to a 12 mm port later during the operation. Working through these 2 incisions, I wasable to bluntly dissect away multiple areas of the loculations. Portions of the fluid were removed and sent for culture, cytology, cell count, and Light's criteria. Stat Gram stain demonstrated no evidence of organisms. There were white blood cells. An additional incision was then made in the fifth intercostal space in the anterior axillary line. Working through these 3 incisions, were able to completely remove all the adhesions and remove all the loculated fluid. Some of this fluid appeared to be rather gelatinous and was greenish in color. The lung was then observed to be rather adherent to the posterior chest wall. There was an incredibly thickened pleura present in this area. This was strippedoff the chest wall and sent with portions of the area for tissue culture as well as permanent histology. There was a moderately thickened pleural rind present on the lung, particularly over the posterior aspect of the lower lobe and some portions of the upper lobe. This was removed as much is felt to be safe. This essentially removed the vast majority of this pleural rind. The lung was then totally decorticated. The chest was irrigated with 5 L of sterile saline. An additional 500 cc of triple antibiotic solution was then used to irrigate the chest as well. Hemostasis was checked for meticulously achieved. The 2 superior ports were removed under direct vision. There is no evidence of any bleeding from theport sites. A 28 Slovak chest tube was then placed through the seventh intercostal space incision. This was directed posteriorly and apically. Additional holes were cut in a chest tube and it was secured to the skin with an 0 silk suture. A separate stab incision was then made in the approximately thesixth intercostal space slightly anteriorly. 28 Slovak chest tube was placed through this incision and carefully guided anteriorly and apically. No additional holes were cut in this chest tube. It was secured to the skin with an 0 silk suture. The lung was then reinflated under direct vision and therewas good apposition of all visible portions of the lung to the chest wall. The chest tubes were placed to suction. The remaining 2 incisions were closed in layers with 2-0 Vicryl suture in the deep muscular tissue and 4 Monocryl in the skin. The patient tolerated the procedure well. There were no apparent complications. All sponge and instrument counts were correct at the end of the case. Patient was awoken from general anesthesia, extubated in the operating room and taken to the recovery room. I was scrubbed and present for the entire procedure Infection Bundle used? See Brief Op note Haroon Cherry MD 06/08/2017 Plan of Care - Gracia Kumar RN - 06/08/2017 8:12 AM EST Problem: Patient Care Overview Goal: Plan of Care Review Outcome: Ongoing (Interventions Implemented as Appropriate) OUTCOME EVALUATION NOTE: OUTCOME SUMMARY: 2000-Went for CT scan, started on antibiotic. Drain care done. Denies pain had a good night.?? PLAN MOVING FORWARD: NPO post midnight for Bronchoscopy and Left vats in am. INDIVIDUALIZED FALL PREVENTION INTERVENTIONS: Patient-specific fall risk factors per assessment: [current deficits]: needs assistance getting in and out of bed or chair, pain with movement/ ambulation. ?? Assistance [level of assistance required for transfers and ambulation]: stand by. Supervision [direct monitoring required during toileting and ADLs]: Eyes on . Surveillance [continuous indirect monitoring]: Purposeful rounding; call light in reach Patient-specific fall prevention interventions for sensory deficits provided, if applicable: Glasses, Lighting adjusted for safety. CPG GOAL OUTCOME EVALUATION: ?? Consult Note - Tigre Haley, [facility] - 06/07/2017 7:26 PM EST Clinical Pharmacist Note - Vancomycin Daniel Urena [id number] Daniel Urena is a 61 y.o. male who is starting antibiotic therapy which includes intravenous vancomycin. Based on a review of the patient???s chart and/or conversation with the patient???s providersvancomycin is being used for empiric coverage for a history of retoperitoneal and abdominal abscesses s/p drainage, left loculated pleural effusion, elevated WBC despite course of cipro flagyl with a targeted goal of 15 - 20 mcg/mL. The following Pharmacokinetic data has been evaluated: Wt Readings from Last 1 Encounters: 06/07/17 (!) 151.5 kg (334 lb) Ht Readings from Last 1 Encounters: 05/24/17 175.3 cm (5' 9) Labs: Creatinine clearance: Creatinine (mg/dL) Date Value 06/01/2017 1.19 Dosing recommendations: ??? Based on this information, vancomycin therapy will be initiated with a one- time dose of 3000 mg to be given now. ??? A full dosing regimen will be ordered upon complete pharmacist consultation to follow. We will continue to monitor the patient as long as he remains on vancomycin therapy. Thank you for this consult and please page the care area pharmacist with any questions you may have. Alternately, during off-hours (9p-7a) you may call [phone] to contact a pharmacist. TIGRE HALEY RPH documented in this encounter Plan of Treatment Scheduled Orders Name Type Priority Associated Diagnoses Order S chedule EKG 12 Lead ECG Routine Loculated pleural effusion O ne Time for 1 Occurrences starting 2017 until 06/07/2017 documented as of this encounter Procedures Procedure Name Priority Date/Time Associated Comments Diagnosis XR CHEST PA AND Routine 06/11/2017 10:43 Results for this LATERAL AM EST procedure are i n the results section. CREATININE STAT 06/11/2017 8:12 AM Results f or this EST procedure are i n the results section. XR CHEST PA AND STAT 06/11/2017 6:35 AM Result s for this LATERAL EST procedure are i n the results section. HEMOGRAM Routine 06/10/2017 6:15 AM Results f or this EST procedure are i n the results section. DIFFERENTIAL, Routine 06/10/2017 6:15 AM Results for this AUTOMATED EST procedure are i n the results section. CBC (WITH DIFF) Routine 06/10/2017 6:15 AM EST BASIC METABOLIC PANEL Routine 06/10/2017 6:15 AM Results for this (NON-FASTING) EST procedure are in the results section. XR CHEST PA AND Routine 06/10/2017 5:46 AM Result s for this LATERAL EST procedure are i n the results section. VANCOMYCIN, TROUGH Timed 06/09/2017 4:49 PM Res ults for this EST procedure are i n the results section. VANCOMYCIN, TROUGH Timed 06/09/2017 9:55 AM Res ults for this EST procedure are i n the results section. XR CHEST PA AND Routine 06/09/2017 9:26 AM Result s for this LATERAL EST procedure are i n the results section. HEMOGRAM Routine 06/09/2017 7:12 AM Results f or this EST procedure are i n the results section. DIFFERENTIAL, Routine 06/09/2017 7:12 AM Results for this AUTOMATED EST procedure are i n the results section. GREEN TUBE HOLD Routine 06/09/2017 7:12 AM Result s for this EST procedure are i n the results section. CBC (WITH DIFF) Routine 06/09/2017 7:12 AM EST XR CHEST ONE VIEW STAT 06/08/2017 5:20 PM Resu lts for this EST procedure are i n the results section. THORACOSCOPY, SURG; W Routine 06/08/2017 4:55 PM Pleural empye ma TOTAL DECORTICATION EST ANAEROBIC CULTURE Routine 06/08/2017 3:15 PM Resu lts for this EST procedure are i n the results section. TISSUE CULTURE, Routine 06/08/2017 3:15 PM AEROBIC & ANAEROBIC EST TISSUE CULTURE Routine 06/08/2017 3:15 PM Results for this EST procedure are i n the results section. SPECIMEN TO PATHOLOGY Routine 06/08/2017 3:13 PM Results for this EST procedure are i n the results section. CYTOPATHOLOGY Routine 06/08/2017 3:13 PM Results for this NON-GYNECOLOGICAL EST procedure are in the results section. ANAEROBIC CULTURE Routine 06/08/2017 3:10 PM Resu lts for this EST procedure are i n the results section. TISSUE CULTURE, Routine 06/08/2017 3:10 PM AEROBIC & ANAEROBIC EST TISSUE CULTURE Routine 06/08/2017 3:10 PM Results for this EST procedure are i n the results section. NON-CLINICAL LABORATORY DIRECTOR FINAL REPORT Routine 06/08/2017 3:00 PM R esults for this EST procedure are i n the results section. ANAEROBIC CULTURE Routine 06/08/2017 3:00 PM Resu lts for this EST procedure are i n the results section. SURGICAL PATHOLOGY Routine 06/08/2017 3:00 PM Res ults for this REPORT EST procedure are i n the results section. BODY FLUID CULTURE, Routine 06/08/2017 3:00 PM AEROBIC & ANAEROBIC EST AFB CULTURE Routine 06/08/2017 3:00 PM Results f or this EST procedure are i n the results section. BODY FLUID CULTURE, Routine 06/08/2017 3:00 PM Re sults for this AEROBIC EST procedure are i n the results section. CELL COUNT BODY FLUID Routine 06/08/2017 3:00 PM Results for this EST procedure are i n the results section. PROTEIN LEVEL BODY Routine 06/08/2017 3:00 PM Res ults for this FLUID EST procedure are i n the results section. LACTATE DEHYDROGENASE Routine 06/08/2017 3:00 PM Results for this BODY FLUID EST procedure are i n the results section. GLUCOSE LEVEL BODY Routine 06/08/2017 3:00 PM Res ults for this FLUID EST procedure are i n the results section. BRONCHOSCOPY, 06/08/2017 1:38 PM Pleural empyema DIAGNOSTIC (WRVU 2.78) EST @THORACOSCOPY, SURG; W 06/08/2017 1:38 PM Pleural empy santos TOTAL DECORTICATION EST (WRVU 29.13) BRONCHOSCOPY,DIAGNOSTI Routine 06/08/2017 1:19 PM Pleural empy santos C EST HEMOGRAM Routine 06/08/2017 5:40 AM Results f or this EST procedure are i n the results section. DIFFERENTIAL, Routine 06/08/2017 5:40 AM Results for this AUTOMATED EST procedure are i n the results section. PROTHROMBIN TIME Routine 06/08/2017 5:40 AM Resul ts for this EST procedure are i n the results section. CBC (WITH DIFF) Routine 06/08/2017 5:40 AM EST PHOSPHORUS Routine 06/08/2017 5:40 AM Results f or this EST procedure are i n the results section. MAGNESIUM Routine 06/08/2017 5:40 AM Results f or this EST procedure are i n the results section. COMPREHENSIVE Routine 06/08/2017 5:40 AM Results for this METABOLIC PANEL EST procedure ar e in (NON-FASTING) the results section. CAMP MAINTENANCE SUPERVISOR SCAN 06/08/2017 12:00 Res ults for this AM EST procedure are i n the results section. CT CHEST WO CONTRAST Routine 06/07/2017 9:55 PM R esults for this (GENERIC) EST procedure are i n the results section. ABORH RECHECK STATUS Routine 06/07/2017 7:45 PM R esults for this EST procedure are i n the results section. ABO/RH TYPING Routine 06/07/2017 7:45 PM Results for this EST procedure are i n the results section. APTT Routine 06/07/2017 7:45 PM Results f or this EST procedure are i n the results section. ANTIBODY SCREEN Routine 06/07/2017 7:45 PM Result s for this EST procedure are i n the results section. TYPE AND SCREEN Routine 06/07/2017 7:45 PM ([facility]/LEA) EST CALCIUM Routine 06/07/2017 7:45 PM Results f or this EST procedure are i n the results section. documented in this encounter Results XR Chest PA & Lateral (Generic) (06/28/2017 8:52 AM EST) Anatomical Region Laterality Modality Chest N/A Digital Radiography Specimen (Source) Anatomical Location Collection Method / Collectio n Time Received Time / Laterality Volume Impressions 07/01/2017 9:04 AM EST 1. ??Resolved left-sided pneumothorax. 2. ??Small left-sided pleural effusion. 3. ??Mild residual scarring/atelectasis at the left base. I have personally reviewed the image(s) and the residents interpretation and agree with the findings, Eva Salter at 07/01/2017 9:04 AM Narrative 07/01/2017 9:04 AM EST EXAMINATION: XR CHEST PA AND LATERAL (GENERIC) CLINICAL HISTORY: s/p L VATS on 8 TECHNIQUE: PA and lateral views of the c hest. COMPARISON: Chest radiograph dated 2017 FINDINGS: The left-sided pneumothorax loco s resolved. Small left-sided pleural effusion and basilar atelectasis. The anu ngs are otherwise clear. The cardiomediastinal silhouette, asael, pulm onary vessels, and pleura are within normal limits. No significant osseous fi ndings are seen. Procedure Note Eva Ayala MD - 2017 EXAMINATION: XR CHEST PA AND LATERAL (GE NERIC) CLINICAL HISTORY: s/p L VATS on 8 TECHNIQUE: PA and lateral views of the c hest. COMPARISON: Chest radiograph dated 2017 FINDINGS: The left-sided pneumothorax loco s resolved. Small left-sided pleural effusion and basilar atelectasis. The anu ngs are otherwise clear. The cardiomediastinal silhouette, asael, pulm onary vessels, and pleura are within normal limits. No significant osseous fi ndings are seen. IMPRESSION 1. Resolved left-sided pneumothorax. 2. Small left-sided pleural effusion. 3. Mild residual scarring/atelectasis at the left base. I have personally reviewed the image(s) and the residents interpretation and agree with the findings, Eva Salter at 07/01/2017 9:04 AM Haroon Cherry MD IMG DX ORDERABLES XR Chest PA & Lateral (Generic) (06/11/2017 10:43 AM EST) Anatomical Region Laterality Modality Chest N/A Digital Radiography Specimen (Source) Anatomical Location Collection Method / Collectio n Time Received Time / Laterality Volume Impressions 06/11/2017 10:58 AM EST 1. Stable mild left hydropneumothorax. 2. Left lower lobe opacity with no signi ficant change. Narrative 06/11/2017 10:58 AM EST EXAMINATION: XR CHEST PA AND LATERAL (GENERIC) CLINICAL HISTORY: Pneumothorax, post CT pull L side TECHNIQUE: PA and lateral views of the c hest. COMPARISON: 06/11/2017 FINDINGS: There has been interval removal of the l eft-sided chest tube. Minimal residual hydropneumothorax on the left is identif ied. There is opacity at the left lower lobe with no significant change when com pared to the prior exam. The cardiomediastinal silhouette is unremark able. Procedure Note Attila Marcos MD - 06/11/2017Format ting of this note might be different from the original. EXAMINATION: XR CHEST PA AND LATERAL (GE NERIC) CLINICAL HISTORY: Pneumothorax, post CT pull L side TECHNIQUE: PA and lateral views of the c hest. COMPARISON: 06/11/2017 FINDINGS: There has been interval removal of the l eft-sided chest tube. Minimal residual hydropneumothorax on the left is identif ied. There is opacity at the left lower lobe with no significant change when com pared to the prior exam. The cardiomediastinal silhouette is unremark able. IMPRESSION 1. Stable mild left hydropneumothorax. 2. Left lower lobe opacity with no signi ficant change. Haroon Cherry MD IMG DX ORDERABLES (ABNORMAL) Creatinine (06/11/2017 8:12 AM EST) Analysis Performed At [facility] Time Signature Creatinine 2.43 (H) 0.80 - [facility] 1.50 mg/dL [facility] Estimated GFR 27 (L) >=60 [facility] Comment: The reported eGFR should be multiplied b y 1.2 for patients. The MDRD is not an appropriate measure o f renal function for patients with body mass extremes or in patients with acute kidney failure. http://[employer]/DHnkdep http://[employer]/DHMCnkf Specimen Anatomical Collection Method Collection Time Receive d Time (Source) Location / / Volume Laterality Blood specimen 06/11/2017 8:12 AM 018 8:18 (specimen) EST AM EST Resulting Agency Comment Spec In Lab Haroon Cherry MD CHEMISTRY ORDERABLES Performing Organization Address City/State/[place] [address] XR Chest PA & Lateral (Generic) (06/11/2017 6:35 AM EST) Anatomical Region Laterality Modality Chest N/A Digital Radiography Specimen (Source) Anatomical Location Collection Method / Collectio n Time Received Time / Laterality Volume Impressions 06/11/2017 6:38 AM EST 1. ??Stable size of the small left hydropneumothorax. 2. ??No interval change in the dense ret rocardiac opacity. Narrative 06/11/2017 6:38 AM EST EXAMINATION: XR CHEST PA AND LATERAL (GENERIC) CLINICAL HISTORY: s/p thoracotomy TECHNIQUE: 2 views COMPARISON: June 10, 2017 FINDINGS: One of the two left chest tubes has been removed. A small left hydropneumothorax persists. Retrocardiac airspace opacity is unchanged. Lungs are otherwise clear. Cardiomediastinal silhouette is stable. Procedure Note Teena Cross MD - 06/11/2017 EXAMINATION: XR CHEST PA AND LATERAL ([employer]) CLINICAL HISTORY: s/p thoracotomy TECHNIQUE: 2 views COMPARISON: June 10, 2017 FINDINGS: One of the two left chest tubes has been removed. A small left hydropneumothorax persists. Retrocardiac airspace opacity is unchanged. Lungs are otherwise clear. Cardiomediastinal silhouette is stable. IMPRESSION 1. Stable size of the small left hydropn eumothorax. 2. No interval change in the dense retro cardiac opacity. Haroon Cherry MD IMG DX ORDERABLES Differential, Automated (06/10/2017 6:15 AM EST) P athologist Signature Neutrophils % 68.6 % [facility] Neutr Abs (ANC) 5.64 1.70 - [facility] 6.10 [facility] x10(3)/[facility] Lymphocytes % 18.8 % [facility] Lymphocytes Abs 1.5 0.9 - 3.2 [facility] x10(3)/[facility] LABORATORY Monocytes % 9.4 % [facility] Monocyte Abs 0.8 0.3 - 0.9 [facility] x10(3)/[facility] LABORATORY Eosinophils % 2.3 % [facility] Eosinophils Abs 0.2 0.0 - 0.4 [facility] x10(3)/[facility]ORY Basophils % 0.4 % [facility] Basophils Abs 0.0 0.0 - 0.1 [facility] x10(3)/[facility]ATORY Immature Gran % 0.50 % [facility] Comment: Immature granulocytes(IG's)percentage an d absolute count will include metamyelocytes, myelocytes, and promyelo cytes. Blood smears from CBCs yielding IG's will be scanned manually for concor dance. If this scan disagrees with the automated IG or if promyelocytes are not ed, a manual differential will be performed. Mehnaz Gran Abs 0.04 0.00 - 0.04 x10(3)/[facility] Specimen Anatomical Collection Method Collection Time Receive d Time (Source) Location / / Volume Laterality Blood specimen 06/10/2017 6:15 AM 018 6:27 (specimen) EST AM EST Resulting Agency Comment Spec In Lab Nguyễn Smith MD HEMATOLOGY ORDERABLES Performing Organization Address City/State/[place] [address] (ABNORMAL) Hemogram (06/10/2017 6:15 AM EST) Analysis Performed At Patho logist Time Signature WBC 8.2 4.0 - 9.5 [facility] x10(3)/[facility] LABORATORY RBC 3.51 (L) 4.58 - [facility].54 [facility] x10(6)/[facility] Hemoglobin 10.3 (L) 13.7 - [facility] 16.5 gm/dL [facility] Hematocrit 31.8 (L) 40.5 - [facility] 48.5 % [facility] MCV 90.6 82.9 - [facility] 93.1 [facility] MCH 29.3 27.5 - [facility] 32.1 pg [facility] MCHC 32.4 32.0 - [facility] 35.7 gm/dL [facility] Platelets 369 (H) 145 - 357 [facility] x10(3)/[facility] LABORATORY RDWSD 57.4 (H) 36.0 - [facility] 45.0 [facility]ORY RDWCV 17.2 (H) 11.4 - [facility] 13.8 % [facility] MPV 8.5 7.6 - 12.9 [facility] LABORATORY nRBC % Auto 0.0 % [facility] nRBC Abs Auto 0.000 0.000 - [facility] 0.000 [facility] x10(3)/[facility] Specimen Anatomical Collection Method Collection Time Receive d Time (Source) Location / / Volume Laterality Blood specimen 06/10/2017 6:15 AM 018 6:27 (specimen) EST AM EST Resulting Agency Comment Spec In Lab Nguyễn Smith MD HEMATOLOGY ORDERABLES Performing Organization Address City/State/[place] [address] (ABNORMAL) Basic Metabolic Panel (non-fasting) (06/10/2017 6:15 AM EST) athologist Signature Glucose Lvl 102 65 - 199 [facility] mg/dL [facility] Comment: Diabetes: >=200 mg/dL plus symp toms BUN 10 10 - 20 mg/dL [facility] Creatinine 2.03 (H) 0.80 - 1.50 mg/dL [facility] Comment: result rechecked-hp Sodium 139 135 - 145 mmol/L [facility] Potassium 3.7 3.5 - 5.0 mmol/L [facility] Comment: Please note: ??Patients with WBC >100,00 0 may have falsely elevated Potassium levels. ??For accurate Potassium quantif ication in these patients send serum separator tube (gold top) for subsequent determinations. ??Contact the Clinical Chemistry Laboratory if there are any qu estions. Chloride 101 98 - 107 mmol/L [facility] CO2 25 22 - 31 mmol/L [facility] Anion Gap 13 5 - 15 mmol/L [facility] Calcium 8.8 8.5 - 10.5 mg/dL [facility] Estimated GFR 34 (L) >=60 [facility] Comment: The reported eGFR should be multiplied b y 1.2 for patients. The MDRD is not an appropriate measure o f renal function for patients with body mass extremes or in patients with acute kidney failure. http://[employer]/DHnkdep http://[employer]/DHMCnkf Specimen Anatomical Collection Method Collection Time Receive d Time (Source) Location / / Volume Laterality Blood specimen 06/10/2017 6:15 AM 018 6:27 (specimen) EST AM EST Resulting Agency Comment Spec In Lab Haroon Cherry MD CHEMISTRY ORDERABLES Performing Organization Address City/State/ZIP Code Phon e Number [place] [id number] XR Chest PA & Lateral (Generic) (06/10/2017 5:46 AM EST) Anatomical Region Laterality Modality Chest N/A Digital Radiography Specimen (Source) Anatomical Location Collection Method / Collectio n Time Received Time / Laterality Volume Impressions 06/10/2017 6:10 AM EST 1. ??Small left hydropneumothorax. 2. ??Increased confluence of the left ba silar opacity, this may represent a combination of a combination of effusion with atelectasis and/or pneumonia. ?? I have personally reviewed the image(s) and the residents interpretation and agree with the findings, Teena Cross at 06/10/2017 6:10 AM Narrative 06/10/2017 6:10 AM EST EXAMINATION: XR CHEST PA AND LATERAL (GENERIC) CLINICAL HISTORY: s/p L VATS for L locul ated pleural effusion TECHNIQUE: PA and lateral chest radiographs COMPARISON: Multiple prior chest radiographs, most r ecent dated 06/09/2017 FINDINGS: Two left apically directed chest tubes r emain in place. There is a small pneumothorax along the apical and lateral aspect of the left upper chest. There is a small air-fluid level at the inferior aspect compatible with a small hydropneumothorax. Slightly increased left lung base opacity. Right lung is relatively clear. The cardiomedi astinal silhouette is partially obscured but grossly stable. Subcutaneous emphyse ma within the left lateral chest wall is unchanged. Procedure Note Teena Cross MD - 06/10/2017 EXAMINATION: XR CHEST PA AND LATERAL (GE [employer]ERIC) CLINICAL HISTORY: s/p L VATS for L locul ated pleural effusion TECHNIQUE: PA and lateral chest radiographs COMPARISON: Multiple prior chest radiographs, most r ecent dated 06/09/2017 FINDINGS: Two left apically directed chest tubes r emain in place. There is a small pneumothorax along the apical and lateral aspect of the left upper chest. There is a small air-fluid level at the inferior aspect compatible with a small hydropneumothorax. Slightly increased left lung base opacity. Right lung is relatively clear. The cardiomedi astinal silhouette is partially obscured but grossly stable. Subcutaneous emphyse ma within the left lateral chest wall is unchanged. IMPRESSION 1. Small left hydropneumothorax. 2. Increased confluence of the left basi lar opacity, this may represent a combination of a combination of effusion with atelectasis and/or pneumonia. I have personally reviewed the image(s) and the residents interpretation and agree with the findings, Teena Cross at 06/10/2017 6:10 AM Haroon Cherry MD IMG DX ORDERABLES (ABNORMAL) Vancomycin, trough (06/09/2017 4:49 PM EST) athologist Signature Vanc Trough 22.2 mg/L [facility] ([facility] Comment: Called by: NEEMA, Read back by: Nita Sanches on_, Date/Time:06/09/17 17:32. Therapeutic range for complicated infect ions such as bacteremia, endocarditis, osteomyelitis, meningitis, and hospital- acquired pneumonia caused by S. aureus: 15-20 mg/L Therapeutic range for other indications: 10-15 mg/L Toxic: >20 mg/L Reference: Vancomycin Therapeutic Monitoring: Revie w and Recommendations from the ASHP, IDSA and SIDP Task Force. ??Am J Health- Syst Pharm. 2009; 66:82-98 Specimen Anatomical Collection Method Collection Time Receive d Time (Source) Location / / Volume Laterality Blood specimen 06/09/2017 4:49 PM 018 4:53 (specimen) EST PM EST Resulting Agency Comment Spec In Lab Haroon Cherry MD CHEMISTRY ORDERABLES Performing Organization Address City/State/[place] [address] (ABNORMAL) Vancomycin, trough (06/09/2017 9:55 AM EST) athologist Signature Vanc Trough 25.5 mg/L [facility] ([facility]) [facility] Comment: Called by: NEETU, Read back by: Ti Vega man, Date/Time:06/09/17 10:55. Therapeutic range for complicated infect ions such as bacteremia, endocarditis, osteomyelitis, meningitis, and hospital- acquired pneumonia caused by S. aureus: 15-20 mg/L Therapeutic range for other indications: 10-15 mg/L Toxic: >20 mg/L Reference: Vancomycin Therapeutic Monitoring: Donnie davis and Recommendations from the ASHP, IDSA and SIDP Task Force. ??Am J Health- Syst Pharm. 2009; 66:82-98 Specimen Anatomical Collection Method Collection Time Receive d Time (Source) Location / / Volume Laterality Blood specimen 06/09/2017 9:55 AM 018 (specimen) EST 10:02 AM EST Resulting Agency Comment Spec In Lab Haroon Cherry MD CHEMISTRY ORDERABLES Performing Organization Address City/State/ZIP Code Phon e Number [place] [phone] XR Chest PA & Lateral (Generic) (06/09/2017 9:26 AM EST) Anatomical Region Laterality Modality Chest N/A Digital Radiography Specimen (Source) Anatomical Location Collection Method / Collectio n Time Received Time / Laterality Volume Impressions 06/09/2017 9:38 AM EST Expected postoperative changes with exception of increasing left-sided subcutaneous emphysema, likely due to th e presence of a chest port catheter outside of the thoracic cavity. I, ? , discussed these results, ?, with Dr. Smith on 06/09/2017 9:37 AM and verified that (s)he understood these results. Narrative 06/09/2017 9:38 AM EST EXAMINATION: XR CHEST PA AND LATERAL (GENERIC) CLINICAL HISTORY: s/p L VATS decort TECHNIQUE: PA and lateral COMPARISON: 06/08/2017 FINDINGS: No pneumothorax. 2 left-sided chest drai ns remain with the tips at the apices but the more cranial one does have a pro ximal port within the soft tissues of the thorax. Moderate subcutaneous emphys santos, increased from prior study patchy opacities the LEFT lung base and volume loss with streak atelectasis the RIGHT lung base. No significant effusions. Procedure Note Devora England MD - 06/09/2017Formattin g of this note might be different from the original. EXAMINATION: XR CHEST PA AND LATERAL (GE NERIC) CLINICAL HISTORY: s/p L VATS decort TECHNIQUE: PA and lateral COMPARISON: 06/08/2017 FINDINGS: No pneumothorax. 2 left-sided chest drai ns remain with the tips at the apices but the more cranial one does have a pro ximal port within the soft tissues of the thorax. Moderate subcutaneous emphys santos, increased from prior study patchy opacities the LEFT lung base and volume loss with streak atelectasis the RIGHT lung base. No significant effusions. IMPRESSION Expected postoperative changes with exce ption of increasing left-sided subcutaneous emphysema, likely due to th e presence of a chest port catheter outside of the thoracic cavity. I, , dis cussed these results, , with Dr. Smith on 06/09/2017 9:37 AM and verified that (s)he understood these results. Haroon Cherry MD IMG DX ORDERABLES Green Tube HOLD (06/09/2017 7:12 AM EST) athologist Signature Green Hold Sample in [facility]. [facility] Specimen Anatomical Collection Method Collection Time Receive d Time (Source) Location / / Volume Laterality Blood specimen Venous Draw / 06/09/2017 7:12 AM 2017 7:20 (specimen) Unknown EST AM EST Nguyễn Smith MD CHEMISTRY ORDERABLES Performing Organization Address City/State/[place] [address] (ABNORMAL) Differential, Automated (06/09/2017 7:12 AM EST) [facility] gist Method Time Signature Neutrophils % 80.7 % [facility] Neutr Abs (ANC) 10.49 (H) 1.70 - [facility] 6.10 [facility] x10(3)/[facility]ATORY Lymphocytes % 10.8 % [facility] Lymphocytes Abs 1.4 0.9 - 3.2 [facility] x10(3)/[facility] LABORATORY Monocytes % 6.8 % [facility] Monocyte Abs 0.9 0.3 - 0.9 [facility] x10(3)/[facility] LABORATORY Eosinophils % 0.8 % [facility] Eosinophils Abs 0.1 0.0 - 0.4 [facility] x10(3)/[facility] LABORATORY Basophils % 0.4 % [facility] Basophils Abs 0.0 0.0 - 0.1 [facility] x10(3)/[facility] LABORATORY Immature Gran % 0.50 % [facility] Comment: Immature granulocytes(IG's)percentage an d absolute count will include metamyelocytes, myelocytes, and promyelo cytes. Blood smears from CBCs yielding IG's will be scanned manually for concor dance. If this scan disagrees with the automated IG or if promyelocytes are not ed, a manual differential will be performed. Mehnaz Gran Abs 0.06 (H) 0.00 - 0.04 x10(3)/[facility] LABORATORY Specimen Anatomical Collection Method Collection Time Receive d Time (Source) Location / / Volume Laterality Blood specimen 06/09/2017 7:12 AM 018 7:20 (specimen) EST AM EST Resulting Agency Comment Spec In Lab Nguyễn Smith MD HEMATOLOGY ORDERABLES Performing Organization Address City/State/[place] [address] (ABNORMAL) Hemogram (06/09/2017 7:12 AM EST) Analysis Performed At Patho logist Time Signature WBC 13.0 (H) 4.0 - 9.5 [facility] x10(3)/[facility] LABORATORY RBC 3.93 (L) 4.58 - [facility] 5.54 [facility] x10(6)/[facility] LABORATORY Hemoglobin 11.4 (L) 13.7 - [facility] 16.5 gm/dL [facility] Hematocrit 35.4 (L) 40.5 - [facility] 48.5 % [facility] MCV 90.1 82.9 - [facility] 93.1 fL [facility] MCH 29.0 27.5 - [facility] 32.1 pg [facility] MCHC 32.2 32.0 - [facility] 35.7 gm/dL [facility] Platelets 452 (H) 145 - 357 [facility] x10(3)/[facility] LABORATORY RDWSD 57.6 (H) 36.0 - [facility] 45.0 [facility] LABORATORY RDWCV 17.2 (H) 11.4 - [facility] RAJENDRA 13.8 % [facility] MPV 8.8 7.6 - 12.9 [facility] LAB[facility]ORY nRBC % Auto 0.0 % [facility] nRBC Abs Auto 0.000 0.000 - [facility] 0.000 [facility] x10(3)/[facility] LABORATORY Specimen Anatomical Collection Method Collection Time Receive d Time (Source) Location / / Volume Laterality Blood specimen 06/09/2017 7:12 AM 018 7:20 (specimen) EST AM EST Resulting Agency Comment Spec In Lab Nguyễn Smith MD HEMATOLOGY ORDERABLES Performing Organization Address City/State/[place] [address] XR Chest PA or AP 1 view (06/08/2017 5:20 PM EST) Anatomical Region Laterality Modality Chest N/A Digital Radiography Specimen (Source) Anatomical Location Collection Method / Collectio n Time Received Time / Laterality Volume Impressions 06/08/2017 5:27 PM EST Atelectasis and mild volume loss on the right. 2 chest tubes on the left without a pneumothorax. Left medial lung base de nsity is attributed to consolidation or loculated fluid as described on the prev ious day's CT exam Narrative 06/08/2017 5:27 PM EST EXAMINATION: XR CHEST PA OR AP 1 VIEW CLINICAL HISTORY: s/p L decortication TECHNIQUE: Portable chest COMPARISON: CT 06/07/17 FINDINGS: Enlarged heart. Shallow expansion on the right with a band of mid lung atelectasis. 2 chest tubes have been thanh sanket on the left since the CT from 06/07/2017. No pneumothorax is identified. There is consolidation or loculated fluid in the left medial base correspond ing to the density described on the CT exam. The trachea angles toward the righ t, probably secondary to the atelectasis and volume loss on that side. Procedure Note Pollo Ramos MD - 06/08/2017Form atting of this note might be different from the original. EXAMINATION: XR CHEST PA OR AP 1 VIEW CLINICAL HISTORY: s/p L decortication TECHNIQUE: Portable chest COMPARISON: CT 06/07/17 FINDINGS: Enlarged heart. Shallow expansion on the right with a band of mid lung atelectasis. 2 chest tubes have been thanh sanket on the left since the CT from 06/07/2017. No pneumothorax is identified. There is consolidation or loculated fluid in the left medial base correspond ing to the density described on the CT exam. The trachea angles toward the righ t, probably secondary to the atelectasis and volume loss on that side. IMPRESSION Atelectasis and mild volume loss on the right. 2 chest tubes on the left without a pneumothorax. Left medial lung base de nsity is attributed to consolidation or loculated fluid as described on the prev ious day's CT exam Haroon Cherry MD IMG DX ORDERABLES Anaerobic Culture (06/08/2017 3:15 PM EST) [facility] Method Time Signature Anaerobic No anaerobic [facility] Culture organisms [facility] LABORATORY Specimen Anatomical Collection Method Collection Time Receive d Time (Source) Location / / Volume Laterality Specimen of 06/08/2017 3:15 PM 8 4:24 unknown material EST PM EST (specimen) Comment: LEFT PLEURAL TISSUE Resulting Agency Comment Spec In Lab Haroon Cherry MD MICROBIOLOGY - GENERAL ORDER TIAN Performing Organization Address City/State/[place] [address] Tissue culture (06/08/2017 3:15 PM EST) Component Value Ref Test Analysis Performed At [facility] Range Method Time Signature Tissue No growth [place] Culture [facility] LABORATORY Gram Stain Few White Blood Cells seen [place] R[place] No microorganisms seen. [facility] LABORATORY Specimen Anatomical Collection Method Collection Time Receive d Time (Source) Location / / Volume Laterality Specimen of 06/08/2017 3:15 PM 8 4:24 unknown material EST PM EST (specimen) Comment: LEFT PLEURAL TISSUE Resulting Agency Comment Spec In Lab Haroon Cherry MD MICROBIOLOGY - GENERAL ORDER TIAN Performing Organization Address City/State/[place] [address] Specimen to Pathology (06/08/2017 3:13 PM EST) Specimen Anatomical Collection Method Collection Time Receive d Time (Source) Location / / Volume Laterality AP Specimen 06/08/2017 3:13 PM 8 3:53 EST PM EST Narrative [facility] [place] 06/08/2017 3:54 PM EST Specimen requisition ordered. ??Separate Pathology report to follow Resulting Agency Comment Spec In Lab Haroon Cherry MD PATHOLOGY/CYTOLOGY ORDERABLE S Performing Organization Address City/[facility]/[place] [address] Cytopathology Non-Gynecological (06/08/2017 3:13 PM EST) Specimen Anatomical Collection Method Collection Time Receive d Time (Source) Location / / Volume Laterality AP Specimen 06/08/2017 3:13 PM 8 3:54 EST PM EST Narrative [facility] [place] 06/08/2017 3:54 PM EST Specimen requisition ordered. ??Separate Pathology report to follow Resulting Agency Comment Spec In Lab Haroon Cherry MD PATHOLOGY/CYTOLOGY ORDERABLE S Performing Organization Address City/[facility]/[place] [address] Anaerobic Culture (06/08/2017 3:10 PM EST) [facility] Method Time Signature Anaerobic No anaerobic [facility] organisms [facility] LABORATORY Specimen Anatomical Collection Method Collection Time Receive d Time (Source) Location / / Volume Laterality Specimen of 06/08/2017 3:10 PM 8 4:24 unknown material EST PM EST (specimen) Comment: LEFT PLEURAL RIND POSTERIOR Resulting Agency Comment Spec In Lab Haroon Cherry MD MICROBIOLOGY - GENERAL ORDER TIAN Performing Organization Address City/State/ZIP [place] [address] [facility] [address] Tissue culture (06/08/2017 3:10 PM EST) Component Value Ref Test Analysis Performed At [facility] Method Time Signature Tissue No growth [place] Culture [facility] LABORATORY Gram Stain Few White Blood Cells seen [place] RY No microorganisms seen. [facility]OR[facility] Specimen Anatomical Collection Method Collection Time Receive d Time (Source) Location / / Volume Laterality Specimen of 06/08/2017 3:10 PM 8 4:24 unknown material EST PM EST (specimen) Comment: LEFT PLEURAL RIND POSTERIOR Resulting Agency Comment Spec In Lab Haroon Cherry MD MICROBIOLOGY - GENERAL ORDER TIAN Performing Organization Address City/[facility]/[place] [address] [facility] [address] Surgical Pathology Report (06/08/2017 3:00 PM EST) Component Value Ref Test Analysis Performed At [facility] Method Time Signature Surgical [id number] ? Location: 4WST; 0419; B [facility] Pathology [place] Report The signing pathologist has (i) examined the relevant preparation(s) for the [facility] specimen(s) and (ii) rendered or confirmed the diagnosis(es) . HOSPITAL LABORATORY . ?Surgic al Pathology DIAGNOSIS A - Left pleural rind posterior, excision: - ?? Acute suppurative fibrinous pleuritis ??- ?(see Dis cussion.) Electronically signed by: ??Sapna Javier DO Verified: ??06/13/2017 ?Pathologist Performed at: ??[facility] Dept. of Pathology, [place], [place] DISCUSSION The [facility] was reviewed. CLINICAL INFORMATION Specimen Submitted: A - Left pleural rind posterior Clinical History: Empyema Clinical Diagnosis: Same SPECIMEN PROCESSING A - ??Labeled/Fixative: Left pleural rind posterior, fresh. Quantity/Size: Single, 4.1 x 1.6 x 0.9 cm. Tissue Description: Irregula r fragment of soft tissue. One surface is pale nunes, spongy while the opposing s urface is yellow-nunes, smooth, glistening. No discrete lesions are identified grossly. Sections/Processing: Dentistry Professor sections are submitted. (R2) ??cf Specimen (Source) Anatomical Collection Method Collection Time Re ceived Time Location / / Volume Laterality 06/08/2017 3:00 PM EST Haroon Cherry MD PATHOLOGY/CYTOLOGY ORDERABLE S Performing Organization Address City/State/[place] [address] Non-Skiver Blockers Final Report (06/08/2017 3:00 PM EST) Component Value Ref Test Analysis Performed At [facility] Range Method Time Signature Non-Skiver Blockers Final [id number] ? Location: 4T; [facility]9; B [facility] The signing pathologist has (i) examined the relevant preparation(s) for the [facility] specimen(s) and (ii) rendered or confirmed the diagnosis(es) . HOSPITAL LABORATORY . ? No n-Skiver Blockers Final DIAGNOSIS Negative for Malignancy Electronically signed by: ??Grover JOHNSON PhD, Tim Fontanez Verified: ??06/12/2017 ?Pathologist Performed at: ??[facility] Dept. of Pathology, [place], [place] DISCUSSION Pleural fluid, laparoscopic: The specimen is composed of degenerated blood and leukocytes. ? Cell block shows similar features. CLINICAL INFORMATION Specimen Source : Pleural fluid, laparoscopic Pertinent Clinical Data and Significant Therapy: Empyema Clinical Impression : Empyema Pertinent Radiologic Findings ??: (not provided) Gross Description: Received ??fresh, approximat tatiana ??12 mL total volume of ??cloudy, rodo fluid, with light flecks. Total Preparation: Liquid-Based Prep 1; Cell Block 1. Specimen (Source) Anatomical Collection Method Collection Time Re ceived Time Location / / Volume Laterality 06/08/2017 3:00 PM EST Haroon Cherry MD PATHOLOGY/CYTOLOGY ORDERABLE S Performing Organization Address City/[facility]/[place] [address] Anaerobic Culture (06/08/2017 3:00 PM EST) [facility] Method Time Signature Anaerobic No anaerobic [facility] Culture organisms [facility] LABORATORY Specimen Anatomical Collection Method Collection Time Receive d Time (Source) Location / / Volume Laterality Pleural fluid 06/08/2017 3:00 PM 06/08/19 18 4:23 specimen EST PM EST (specimen) Comment: PLERUAL FLUID LEFT Resulting Agency Comment Spec In Lab Haroon Cherry MD MICROBIOLOGY - GENERAL ORDER TIAN Performing Organization Address City/[facility]/[place] [address] Body Fluid Culture, Aerobic (06/08/2017 3:00 PM EST) Component Value Ref Test Analysis Performed At [facility] Method Time Signature Body Fluid No growth [place] Culture [facility] LABORATORY Gram Stain Cytocentrifuge Gram Stain performed [facility] No WBC's seen. [place] No microorganisms seen. [facility] LABORATORY Specimen Anatomical Collection Method Collection Time Receive d Time (Source) Location / / Volume Laterality Pleural fluid 06/08/2017 3:00 PM 06/08/19 18 4:23 specimen EST PM EST (specimen) Comment: PLERUAL FLUID LEFT Resulting Agency Comment Spec In Lab Haroon Cherry MD MICROBIOLOGY - GENERAL ORDER TIAN Performing Organization Address City/[facility]/[place] [address] Cell Count Body Fluid Peritoneal Fluid (06/08/2017 3:00 PM EST) [facility] Method Time Signature Spec Type BF Peritoneal Fl [facility] Color BF Yellow [facility] Appearance BF Cloudy [facility] WBC BF Ct 684 /mcl [facility] Comment: Counts may be inaccurate due to age of s belem Called to Damon Conley on 06.08.17 at 1615 [employer] Guideline listed below apply to all body fluids EXCEPT: Bronchial Lavage Specimens (BAL specimens). Differentials on BAL specimens are perfo rmed by the Cytology lab section. When Body Fluid WBC count is greater anastacio n Zero, a smear is made and scanned. All scan information is correlated with numeric results prior to being released to patients chart. Polymorph % 63 % [facility] LABORATORY Comment: Polymorphonuclear cell percent and absol white earth values may contain Neutrophils, Eosinophils, and Basophils. Body fluid s mear will be scanned manually for concordance. Mononuc % 37 % [facility] LABORATORY Comment: Mononuclear cell percent and absolute va lues may contain Lymphocytes and Monocytes. Body fluid smear will be scan omari manually for concordance. Polymorph BF ABS 429 /[facility] LABORATORY Comment: Polymorphonuclear cell percent and absol white earth values may contain Neutrophils, Eosinophils, and Basophils. Body fluid s mear will be scanned manually for concordance. Mononuc ABS 255 /[facility] LABORATORY Comment: Mononuclear cell percent and absolute va lues may contain Lymphocytes and Monocytes. Body fluid smear will be scan omari manually for concordance. Specimen (Source) Anatomical Collection Method Collection Time Re ceived Time Location / / Volume Laterality Peritoneal fluid 06/08/2017 3:00 06/08/19 18 3:50 specimen PM EST PM EST (specimen) Resulting Agency Comment Spec In Lab Haroon Cherry MD BODY FLUIDS AND STOOLS ORDER TIAN Performing Organization Address City/State/[place] [address] Protein Level Body Fluid Pleural, Left (06/08/2017 3:00 PM EST) P athologist Signature Protein, BF 5.3 gm/dL [facility]OR[facility] Comment: There is no reference range available fo r the specimen type submitted. For determination of transudative vs. ex udative pleural effusions: Transudates: Pleural Total Protein/Serum Total Protein <0.5 g/dL. Exudates: Pleural Total Protein/Serum To jany Protein >0.5 g/dL. Protein BF Type Pleural, Left [facility] LABORATORY Specimen Anatomical Collection Method Collection Time Receive d Time (Source) Location / / Volume Laterality Pleural fluid 06/08/2017 3:00 PM 06/08/19 18 3:53 specimen EST PM EST (specimen) Resulting Agency Comment Spec In Lab Haroon Cherry MD BODY FLUIDS AND STOOLS ORDER TIAN Performing Organization Address [facility] [address] Lactate Dehydrogenase Body Fluid Pleural, Left (06/08/2017 3:00 PM EST) athologist Signature LDH BF 1,916 unit/L [facility] LABOR[facility] Comment: No reference range is available for the specimen type submitted. ??The performance of this assay for the submit jeremías type has not been validated and results should be interpreted accordingl y and with regard to the patient's clinical status. Corrected from 1724 unit/L [NA] on 06/08 05:37 by Aaron Fuentes. LDH, BF Type Pleural, Left [facility] LABORATORY Specimen Anatomical Collection Method Collection Time Receive d Time (Source) Location / / Volume Laterality Pleural fluid 06/08/2017 3:00 PM 06/08/19 18 3:53 specimen EST PM EST (specimen) Resulting Agency Comment Spec In Lab Haroon Cherry MD BODY FLUIDS AND STOOLS ORDER TIAN Performing Organization Address [facility] [place] [address] Glucose Level Body Fluid Pleural, Left (06/08/2017 3:00 PM EST) athologist Signature Glucose, BF 54 mg/dL [facility] Comment: No reference range is available for the specimen type submitted. ??The performance of this assay for the submit jeremías type has not been validated and results should be interpreted accordingl y and with regard to the patient's clinical status. Gluc, BF Type Pleural, Left [facility] LABORATORY Specimen Anatomical Collection Method Collection Time Receive d Time (Source) Location / / Volume Laterality Pleural fluid 06/08/2017 3:00 PM 06/08/19 18 3:53 specimen EST PM EST (specimen) Resulting Agency Comment Spec In Lab Haroon Cherry MD BODY FLUIDS AND STOOLS ORDER TIAN Performing Organization Address City/State/ZIP Code Phon e Number [address] AF[employer] culture Pleural Fluid (06/08/2017 3:00 PM EST) Patholo gist Method Time Signature Acid Fast No Acid Fast Bacilli isolated [place] Bacilli If active tuberculosis is suspected, the patient should be on [employer] RAJENDR[facility] Culture PRECAUTIONS. [facility] Call Infection Prevention for assistance if needed. HOSPITAL LABORATORY Acid Fast No Acid Fast [place] Stain Bacilli seen [facility] LABORATORY Specimen Anatomical Collection Method Collection Time Receive d Time (Source) Location / / Volume Laterality Pleural fluid 06/08/2017 3:00 PM 06/08/19 18 4:23 specimen EST PM EST (specimen) Comment: PLERUAL FLUID LEFT Resulting Agency Comment Spec In Lab Haroon Cherry MD MICROBIOLOGY - GENERAL ORDER TIAN Performing Organization Address City/State/ZIP Code Phon e Number [address] Differential, Automated (06/08/2017 5:40 AM EST) P athologist Signature Neutrophils % 63.1 % [facility]OR[facility] Neutr Abs (ANC) 5.13 1.70 - [facility] 6.10 [facility] x10(3)/[facility] LABORATORY Lymphocytes % 24.0 % [facility]OR[facility] Lymphocytes Abs 2.0 0.9 - 3.2 [facility] x10(3)/[facility] LABORATORY Monocytes % 9.6 % [facility] LABORATORY Monocyte Abs 0.8 0.3 - 0.9 [facility] x10(3)/[facility] LABORATORY Eosinophils % 2.3 % [facility] LABORATORY Eosinophils Abs 0.2 0.0 - 0.4 [facility] x10(3)/[facility] LABORATORY Basophils % 0.6 % [facility]OR[facility] Basophils Abs 0.0 0.0 - 0.1 [facility] x10(3)/[facility] LABORATORY Immature Gran % 0.40 % [facility] Comment: Immature granulocytes(IG's)percentage an d absolute count will include metamyelocytes, myelocytes, and promyelo cytes. Blood smears from CBCs yielding IG's will be scanned manually for concor dance. If this scan disagrees with the automated IG or if promyelocytes are not ed, a manual differential will be performed. Mehnaz Gran Abs 0.03 0.00 - 0.04 x10(3)/[facility] MAR Y [facility] LABORATORY Specimen Anatomical Collection Method Collection Time Receive d Time (Source) Location / / Volume Laterality Blood specimen 06/08/2017 5:40 AM 018 5:48 (specimen) EST AM EST Resulting Agency Comment Spec In Lab Nguyễn Smith MD HEMATOLOGY ORDERABLES Performing Organization Address City/State/[place] [address] (ABNORMAL) Hemogram (06/08/2017 5:40 AM EST) Analysis Performed At Patho logist Time Signature WBC 8.1 4.0 - 9.5 [facility] x10(3)/[facility] LABORATORY RBC 3.43 (L) 4.58 - [facility] 5.54 [facility] x10(6)/[facility] LABORATORY Hemoglobin 10.0 (L) 13.7 - [facility] 16.[facility] gm/dL [facility] LABORATORY Hematocrit 31.2 (L) 40.5 - [facility] 48.5 % [facility] LABORATORY MCV 91.0 82.9 - [facility] 93.1 [facility] LABORATORY MCH 29.2 27.5 - [facility] 32.1 pg [facility] LABORATORY MCHC 32.1 32.0 - [facility] 35.7 gm/dL [facility] LABORATORY Platelets 332 145 - 357 [facility] x10(3)/[facility] LABORATORY RDWSD 59.5 (H) 36.0 - [facility] RAJENDRA 45.0 [facility] LABORATORY RDWCV 17.7 (H) 11.4 - [facility] RAJENDRA 13.8 % [facility] LABORATORY MPV 8.6 7.6 - 12.9 [facility] LABORATORY nRBC % Auto 0.0 % [facility] LABORATORY nRBC Abs Auto 0.000 0.000 - [facility] RAJENDRA 0.000 [facility] x10(3)/[facility] LABORATORY Specimen Anatomical Collection Method Collection Time Receive d Time (Source) Location / / Volume Laterality Blood specimen 06/08/2017 5:40 AM 018 5:48 (specimen) EST AM EST Resulting Agency Comment Spec In Lab Nguyễn Smith MD HEMATOLOGY ORDERABLES Performing Organization Address City/State/[place] [address] (ABNORMAL) Comprehensive metabolic panel (non-fasting) (06/08/2017 5:40 AM EST) athologist Signature Glucose Lvl 97 65 - 199 [facility] mg/dL [facility] LABORATORY Comment: Diabetes: >=200 mg/dL plus symp toms BUN 9 (L) 10 - 20 mg/dL [facility] LABORATORY Creatinine 0.95 0.80 - 1.50 mg/dL [facility] LABORATORY Sodium 140 135 - 145 mmol/L [facility] LABORATORY Potassium 4.0 3.5 - 5.0 mmol/L [facility] LABORATORY Comment: Please note: ??Patients with WBC >100,00 0 may have falsely elevated Potassium levels. ??For accurate Potassium quantif ication in these patients send serum separator tube (gold top) for subsequent determinations. ??Contact the Clinical Chemistry Laboratory if there are any qu estions. Chloride 100 98 - 107 mmol/L [facility] LABORATORY CO2 26 22 - 31 mmol/L [facility]OR[facility] Anion Gap 14 5 - 15 mmol/L [facility] LABORATORY Calcium 8.6 8.5 - 10.5 mg/dL [facility] LABORATORY Total Protein 7.0 6.1 - 8.0 gm/dL [facility] LABORATORY Albumin 3.0 (L) 3.2 - 5.2 gm/dL [facility] LABORAT[facility] AST 10 0 - 39 unit/L [facility] LABORATORY ALT <5 0 - 55 unit/L [facility] LABORATORY Alk Phos 52 40 - 120 unit/L [facility] LABORAT[facility] Total Bilirubin 0.4 0.2 - 1.3 mg/dL [facility] LABORATORY Estimated GFR >60 >=60 [facility] LABORATORY Comment: The reported eGFR should be multiplied b y 1.2 for patients. The MDRD is not an appropriate measure o f renal function for patients with body mass extremes or in patients with acute kidney failure. http://[employer]/DHnkdep http://[employer]/DHMCnkf Specimen Anatomical Collection Method Collection Time Receive d Time (Source) Location / / Volume Laterality Blood specimen 06/08/2017 5:40 AM 018 5:48 (specimen) EST AM EST Resulting Agency Comment Spec In Lab Haroon Cherry MD CHEMISTRY ORDERABLES Performing Organization Address City/[facility] Code Phon e Number [address] (ABNORMAL) Prothrombin Time (06/08/2017 5:40 AM EST) P athologist Signature PT 14.5 (H) 11.8 - 14.0 [facility] LABORATORY INR 1.2 (H) 0.9 - 1.1 [facility] LABORATORY Comment: An INR <2.0 indicates adequate procoagul ant activity for hemostasis in most patients without underlying bleeding dis orders, though the INR may not adequately reflect hemostatic capacity i n patients with liver disease and synthetic impairment. The recommended ta rget INR range for therapeutic anticoagulation is 2.0 ? 3.0 for most applications, though lower and higher ranges may be appropriate depending on c linical circumstances. Specimen Anatomical Collection Method Collection Time Receive d Time (Source) Location / / Volume Laterality Blood specimen 06/08/2017 5:40 AM 018 5:48 (specimen) EST AM EST Resulting Agency Comment Spec In Lab Haroon Cherry MD HEMATOLOGY ORDERABLES Performing Organization Address City/[facility]/ZIP Code Phon e Number [address] Phosphorus (06/08/2017 5:40 AM EST) P athologist Signature Phosphorus 4.0 2.5 - 4.5 [facility] mg/dL [facility] LABORATORY Specimen Anatomical Collection Method Collection Time Receive d Time (Source) Location / / Volume Laterality Blood specimen 06/08/2017 5:40 AM 018 5:48 (specimen) EST AM EST Resulting Agency Comment Spec In Lab Haroon Cherry MD CHEMISTRY ORDERABLES Performing Organization Address City/[facility]/ZIP Code Phon e Number [address] Magnesium (06/08/2017 5:40 AM EST) P athologist Signature Magnesium 0.85 0.69 - 1.07 [facility] mmol/L [facility] LABORATORY Specimen Anatomical Collection Method Collection Time Receive d Time (Source) Location / / Volume Laterality Blood specimen 06/08/2017 5:40 AM 018 5:48 (specimen) EST AM EST Resulting Agency Comment Spec In Lab Haroon Cherry MD CHEMISTRY ORDERABLES Performing Organization Address City/[facility] Phon e Number [address] SCAN DOC: CAMP MAINTENANCE SUPERVISOR (06/08/2017 12:00 AM EST) Narrative 06/08/2017 12:00 AM EST This result has an attachment that is no t available. Ordered by an unspecified provider. Scanning Provider MEDIA MGR SCAN EXT ORDR/RSLT CT Chest wo Contrast (Generic) (06/07/2017 9:55 PM EST) Anatomical Region Laterality Modality Chest Computed Tomography Specimen (Source) Anatomical Location Collection Method / Collectio n Time Received Time / Laterality Volume Impressions 06/08/2017 4:39 AM EST Impression: 1. ??Small, loculated left pleural colle ction containing foci of air concerning for empyema. 2. ??Small left apical pneumothorax. 3. ??Collapse of the majority of the lef t lower lobe with possible airspace consolidation, concerning for infection. I have personally reviewed the image(s) and the residents interpretation and agree with the findings, Teena Cross at 06/08/2017 4:39 AM Narrative 06/08/2017 4:39 AM EST EXAMINATION: CT CHEST WO CONTRAST (GENERIC) CLINICAL HISTORY: L loculated pleural ef fusion TECHNIQUE: Helical CT of the chest was p erformed without contrast. Multiplanar reformatted images were reviewed. COMPARISON: Lung bases included on CT ab domen and pelvis 06/07/2017, CT chest, abdomen and pelvis 05/10/2017 FINDINGS: Lungs and airways: Atelectasis of the ma jority of the left lower lobe with possible component of consolidative opac ities. The lungs are otherwise clear. Central airways are patent. Pleura and pericardium: There is a locul ated small left pleural effusion in the lower dorsal and lateral hemithorax, con taining foci of air. A small amount of pleural fluid and air is present within the superior aspect of the major fissure. There is a loculated small left apical pneumothorax. No pleural effusion on the right. No pericardial ef fusion. Heart and vasculature: Heart is normal i n size. Mild mitral annular and aortic valve calcifications. Nonaneurysmal thor acic aorta. Mediastinum and hilar structures: Scatte red small, subcentimeter mediastinal lymph nodes, likely reactive. Abdomen: Partially imaged perisplenic dr bassett in a decompressed collection. Cholelithiasis. Osseous structure: No focal lytic or scl erotic osseous lesion. Procedure Note Teena Cross MD - 06/08/2017 EXAMINATION: CT CHEST WO CONTRAST (GENER IC) CLINICAL HISTORY: L loculated pleural ef fusion TECHNIQUE: Helical CT of the chest was p erformed without contrast. Multiplanar reformatted images were reviewed. COMPARISON: Lung bases included on CT ab domen and pelvis 06/07/2017, CT chest, abdomen and pelvis 05/10/2017 FINDINGS: Lungs and airways: Atelectasis of the ma jority of the left lower lobe with possible component of consolidative opac ities. The lungs are otherwise clear. Central airways are patent. Pleura and pericardium: There is a locul ated small left pleural effusion in the lower dorsal and lateral hemithorax, con taining foci of air. A small amount of pleural fluid and air is present within the superior aspect of the major fissure. There is a loculated small left apical pneumothorax. No pleural effusion on the right. No pericardial ef fusion. Heart and vasculature: Heart is normal i n size. Mild mitral annular and aortic valve calcifications. Nonaneurysmal thor acic aorta. Mediastinum and hilar structures: Scatte red small, subcentimeter mediastinal lymph nodes, likely reactive. Abdomen: Partially imaged perisplenic dr bassett in a decompressed collection. Cholelithiasis. Osseous structure: No focal lytic or scl erotic osseous lesion. IMPRESSION Impression: 1. Small, loculated left pleural collect ion containing foci of air concerning for empyema. 2. Small left apical pneumothorax. 3. Collapse of the majority of the left lower lobe with possible airspace consolidation, concerning for infection. I have personally reviewed the image(s) and the residents interpretation and agree with the findings, Teena Cross at 06/08/2017 4:39 AM Haroon Cherry MD IMG CT ORDERABLES ABORH Recheck Status (06/07/2017 7:45 PM EST) [facility] Method Time Signature ABORH Type Completed [facility] LABORATORY Specimen Anatomical Collection Method Collection Time Receive d Time (Source) Location / / Volume Laterality Blood specimen 06/07/2017 7:45 PM 018 8:10 (specimen) EST PM EST Resulting Agency Comment Spec In Lab Nguyễn Smith MD BLOOD BANK ORDERABLES Performing Organization Address City/[facility]/[place] [address] ABO/Rh Typing (06/07/2017 7:45 PM EST) athologist Signature ABORh Type A Pos [facility] LABORATORY Specimen Anatomical Collection Method Collection Time Receive d Time (Source) Location / / Volume Laterality Blood specimen Venous Draw / 06/07/2017 7:45 PM 2017 8:10 (specimen) Unknown EST PM EST Resulting Agency Comment Spec In Lab Nguyễn Smith MD BLOOD BANK ORDERABLES Performing Organization Address City/[facility]/[place] [address] Antibody screen (06/07/2017 7:45 PM EST) [facility] Method Time Signature Ab Screen Negative [facility] LABORATORY Expires at 06/10/2017 [place] [id number] on: [facility] LABORATORY Specimen Anatomical Collection Method Collection Time Receive d Time (Source) Location / / Volume Laterality Blood specimen 06/07/2017 7:45 PM 018 8:10 (specimen) EST PM EST Resulting Agency Comment Spec In Lab Nguyễn Smith MD BLOOD BANK ORDERABLES Performing Organization Address City/[facility]/ZIP Code Phon e Number [address] (ABNORMAL) APTT (06/07/2017 7:45 PM EST) P athologist Signature PTT 39 (H) 25 - 35 sec [facility] Comment: The recommended therapeutic range for fu ll dose, unfractionated heparin at [facility] is 80 ? 114 seconds. The use of the anti-Xa (heparin) level rather than the PTT is recommended for monitoring anticoagul ation intensity in critically ill patients receiving unfractionated hepari n by continuous IV infusion. Specimen Anatomical Collection Method Collection Time Receive d Time (Source) Location / / Volume Laterality Blood specimen 06/07/2017 7:45 PM 018 7:52 (specimen) EST PM EST Resulting Agency Comment Spec In Lab Haroon Cherry MD HEMATOLOGY ORDERABLES Performing Organization Address City/[facility]/ZIP Code Phon e Number [address] Calcium (06/07/2017 7:45 PM EST) P athologist Signature Calcium 8.8 8.5 - 10.5 [facility] mg/dL [facility] LABOR[facility] Specimen Anatomical Collection Method Collection Time Receive d Time (Source) Location / / Volume Laterality Blood specimen 06/07/2017 7:45 PM 018 7:52 (specimen) EST PM EST Resulting Agency Comment Spec In Lab Haroon Cherry MD CHEMISTRY ORDERABLES Performing Organization Address City/[facility]/ZIP Code Phon e Number [address] documented in this encounter Visit Diagnoses Diagnosis Loculated pleural effusion Unspecified pleural effusion Pleural empyema Empyema without mention of fistula Loculated pleural effusion Unspecified pleural effusion documented in this encounter Administered Medications Inactive Administered Medications - up to 3 most recent administrations Medication Order MAR Action Action Date Dose Rate Site cefTRIAXone (ROCEPHIN) 2 g vial New Bag 06/10/2017 1:58 PM EST 2 g 100 mL/hr attach to sodium chloride 0.9% 50 mL Mini-Bag Plus 2 g, Intravenous, EVERY 24 HOURS, First dose on 06/09/17 at 1430, Until Discontinued, Administer over 30 Minutes, Indication for (Active or Suspected): GI/Intra-abdominal New Bag 06/09/2017 2:45 PM EST 2 g 100 mL/hr enoxaparin (LOVENOX) injection 40 mg Given 06/10/2017 9:08 PM EST 40 mg 40 mg, Subcutaneous, NIGHTLY, First dose on Sat06/07/17 at 2100, Until Discontinued, Routine Given 06/09/2017 8:44 PM EST 40 mg Abdom inal Tissue Given 06/08/2017 8:59 PM EST 40 mg heparin (Porcine) subcutaneous injection 5,000 Units 5,000 Units, Subcutaneous, ONCE PRN, 1 d ose, Starting on 06/08/17 at 0800, Until Sat06/11/17 at 1429, greenskeeper laborer to O.R. (06/08/2017), On c all to O.R. 06/08/2017, Routine HYDROmorphone (DILAUDID) injection 0.2-0 .4 mg Given 06/08/2017 5:49 PM EST 0.4 mg 0.2-0.4 mg, Intravenous, EVERY 5 MIN PRN, Starting on 06/08/17 at 1727, Until 06/08/17 at 1810, Pain, Give 0.2 mg every 5 minutes PRN for mild to moderate pain (1-5) Give 0.4 mg every 5 minutes PRN for moderate to severe pain (6-10). Hold for respiratory rate less than 10 per minute. Maximum dose 4 mg over one hour. If multiple pain medications are ordered, start with hydromorphone or morphine and use fentanyl for breakthrough pain., PACU Recovery, Routine Given 06/08/2017 5:32 PM EST 0.4 mg ibuprofen (ADVIL;MOTRIN) tablet 600 mg 600 mg, Oral, EVERY 6 HOURS PRN, Startin g on Sat06/09/17 at 1000, Until Sat06/11/17 at 1429, Pain, Administer orally with milk or food to minimize GI irritation. Maximum dose of 3200 mg from all sources in 24 hours, , Do not administer within 6 hours of ketorolac, Routine ketorolac (TORADOL) injection 15 mg Given 06/11/2017 9:17 AM EST 15 mg 15 mg, Intravenous, EVERY 6 HOURS PRN, Starting on 06/08/17 at 2242, Until 06/11/17 at 1429, Pain, Routine Given 06/10/2017 9:16 AM EST 15 mg Given 06/09/2017 12:25 PM EST 15 mg lactated Ringers infusion New Bag 06/09/2017 1:52 AM EST 75 mL/hr 75 mL/hr 75 mL/hr, Intravenous, CONTINUOUS, Starting on Sat06/07/17 at 1915, Until Sat06/09/17 at 0533 Restarted 06/08/2017 6:30 PM EST 75 mL/hr 75 mL/hr New Bag 06/07/2017 9:56 PM EST 75 mL/hr 75 mL/hr magnesium sulfate 1g in dextrose 5% New Bag 06/08/2017 6:52 AM EST 1 g 100 mL/hr 100mL 1 g, Intravenous, ONCE, 1 dose, On Sat06/08/17 at 0700, Administer over 60 Minutes metroNIDAZOLE (FLAGYL) tablet 500 mg Given 06/11/2017 5:16 AM EST 500 mg 500 mg, Oral, EVERY 8 HOURS SCHEDULED, First dose on Sat06/09/17 at 1445, Until Discontinued, Routine Given 06/10/2017 9:08 PM EST 500 mg Given 06/10/2017 5:32 PM EST 500 mg piperacillin-tazobactam (ZOSYN) Given 06/08/2017 10:00 PM 3.375 g 12.5 mL/hr 3.375 g in dextrose 5% 50 mL EST 3.375 g, Intravenous, EVERY 8 HOURS, First dose on Sat06/07/17 at 1930, Until Discontinued, Administer over 4 Hours, Warning Vesicant/Irritant Medication , Indication for (Active or Suspected): Pneumonia ([facility]) Given 06/08/2017 1:53 PM EST 3.375 g Given 06/08/2017 12:23 PM EST 3.375 g 12.5 mL/hr sodium chloride 0.9 % flush 5 mL Given 06/11/2017 9:11 AM EST 5 mLs 5 mL, Intravenous, 2 TIMES DAILY, First dose on Sat06/07/17 at 2100, Until Discontinued, Routine Given 06/10/2017 9:08 PM EST 5 mLs Given 06/10/2017 9:04 AM EST 5 mLs vancomycin (VANCOCIN) 3,000 mg New Bag 06/07/2017 9:55 PM EST 3,000 mg 186.7 mL/hr in sodium chloride 0.9% 560 mL 3,000 mg, Intravenous, ONCE, 1 dose, On Sat06/07/17 at 1945, Administer over 180 Minutes, Maximum infusion rate is 1 gram/hour. If flushing of the face, neck, upper body, arms, and/or back occurs decrease infusion rate by 50% to reduce the severity of symptoms. This medication may have an associated drug lab level. Please see MAR for scheduled level. Warning Vesicant/Irritant Medication , Indication for (Active or Suspected): Pneumonia (Community) vancomycin 2 g in sodium chloride 0.9% New Bag 06/08/2017 9:08 PM EST 2 g 250 mL/hr 500 mL 2 g, Intravenous, EVERY 12 HOURS, First dose on Sat06/08/17 at 1000, Until Discontinued, Administer over 120 Minutes, Maximum infusion rate is 1 gram/hour. If flushing of the face, neck, upper body, arms, and/or back occurs decrease infusion rate by 50% to reduce the severity of symptoms. This medication may have an associated drug lab level. Please see MAR for scheduled level. Warning Vesicant/Irritant Medication , Indication for (Active or Suspected): Other (See comment) New Bag 06/08/2017 9:45 AM EST 2 g 250 mL/hr documented in this encounter Active and Recently Administered Medications Times are shown in EST. Scheduled Medication Order 06/09/2017 06/10/2017 06/11/2017 acetaminophen (TYLENOL) tablet 1,000 mg 0200 (Not Give n - Provider: Valeriy Guerra RN - Reason: Patient/family refused)0800 (Not Given - Provider: iT Quintero RN - Reason: Patient/family refused - Comment: gives heart burn) 0200 (Not Given - Provider: Nini Omalley RN - Reason: Patient/family refused)0800 (Not Given - Provider: Leslie Lopez RN - Reason: See comment - Comment: pt. allergic to this medication) 0200 (Not Given - Provider: Coco Padgett RN - Reason: Patient/family refused)0800 (Not Given - Provider: Ti Quintero RN - Reason: Patient/family refused) 1,000 mg, Oral, EVERY 6 HOURS, First dos e on Sat06/07/17 at 2000, Until Discontinued, Administer for temperature greater than or equal to 38.2 degrees celsius. Maximum daily dose of acetaminophen from all sources not to exceed 4,000 mg., Routine 1400 (Not Given - Provider: Ti richards RN - Reason: Patient/family refused)1999 (Not Given - Provider: Nini Omalley RN - Reason: Patient/family refused) 1400 (Not Given - Provider: Anais bobo RN - Reason: Patient/family refused)1999 (Not Given - Provider: Coco Padgett RN - Reason: Patient/family refused) cefTRIAXone (ROCEPHIN) 2 g vial attach t o sodium chloride 0.9% 50 mL Mini-Bag Plus 1445 (New Bag - Provider: Ti quiros RN)1515 (Stopped - Provider: Ti Quintero RN) 1358 (New Bag - Provider: Anais Oleary RN)1428 (Stopped - Provider: Leslie Lopez RN) 2 g, Intravenous, EVERY 24 HOURS, First dose on Sat06/09/17 at 1430, Until Discontinued, Administer over 30 Minutes, Indication for (Active or Suspected): GI/Intra-abdominal enoxaparin (LOVENOX) injection 40 mg 2043 (Given - Pro vider: Nini Omalley RN) 2107 (Given - Provider: Coco Padgett, MEET) 40 mg, Subcutaneous, NIGHTLY, First dose on Sat06/07/17 at 2100, Until Discontinued, Routine metroNIDAZOLE (FLAGYL) tablet 500 mg 144 (Given - Pro vider: Ti Quintero RN)214 (Given - Provider: Nini Omalley, MEET) 0627 (Given - Provider: Nini Omalley RN)173 (Given - Provider: Leslie Lopez RN)2107 (Given - Provider: Coco Padgett, MEET) 0516 (Given - Provider: Coco Padgett, MEET) 500 mg, Oral, EVERY 8 HOURS SCHEDULED, F irst dose on Sat06/09/17 at 1445, Until Discontinued, Routine senna-docusate (PERICOLACE) 8.6-50 mg per tablet 2 tab let 0900 (Not Given - Provider: Ti Quintero RN - Reason: Patient/family refused)2100 (Not Given - Provider: Nini Omalley RN - Reason: Patient/family refused) 0906 (Not Given - Provider: Leslie Lopez RN - Reason: Patient/family refused)2100 (Not Given - Provider: Coco Padgett RN - Reason: Patient/family refused) 0900 (Not Given - Provider: Ti Quintero RN - Reason: Patient/family refused) 2 tablet, Oral, 2 TIMES DAILY, First dos e on Sat06/07/17 at 2100, Until Discontinued, Routine sodium chloride 0.9 % flush 5 mL 0916 (Given - Provide r: Ti Quintero RN)2045 (Given - Provider: Nini Omalley, MEET) 09 (Given - Provider: Leslie Lopez RN)2107 (Given - Provider: Coco Padgett, MEET) 0911 (Given - Provider: Ti Quintero RN) 5 mL, Intravenous, 2 TIMES DAILY, First dose on Sat06/07/17 at 2100, Until Discontinued, Routine Continuous Medication Order 06/09/2017 06/10/2017 06/11/2017 lactated Ringers infusion (CANCELED) 0152 (New Bag - P rovider: Valeriy Guerra, MEET)0605 (Stopped - Provider: Valeriy Guerra, MEET) 75 mL/hr, at 75 mL/hr, Intravenous, CONT INUOUS, Starting Sat06/07/17 at 1915, Until 06/09/17 at 0533 PRN Medication Order 06/09/2017 06/10/2017 06/11/2017 heparin (Porcine) subcutaneous injection 5,000 Units 5,000 Units, Subcutaneous, ONCE PRN, 1 d ose, Starting 06/08/17 at 0800, Until 06/11/17 at 1429, greenskeeper laborer to O.R. (06/08/2017), greenskeeper laborer to O.R. 06/08/2017, Routine ibuprofen (ADVIL;MOTRIN) tablet 600 mg 600 mg, Oral, EVERY 6 HOURS PRN, Startin g 06/09/17 at 1000, Until 06/11/17 at 1429, Pain, Administer orally with milk or food to minimize GI irritation. Maximum dose of 3200 mg from all sources in 24 hours, , Do not administer within 6 hours of ketorolac, Rout ine ketorolac (TORADOL) injection 15 mg 1225 (Given - Prov ider: Ti Quintero, MEET) 0916 (Given - Provider: Leslie Lopez RN) 0917 (Give n - Provider: Ti Quintero RN) 15 mg, Intravenous, EVERY 6 HOURS PRN, S tarting 06/08/17 at 2242, Until 06/11/17 at 1429, Pain, Routine lidocaine (XYLOCAINE) 10 mg/mL (1 %) injection 3 mg 3 mg (0.3 mL), Subcutaneous, ONCE PRN, 1 dose, Starting 06/07/17 at 1852, Until 06/11/17 at 1429, for discomfort with PIV insertion, Routine sodium chloride 0.9 % flush 5-20 mL 5-20 mL, Intravenous, EVERY 1 MIN PRN, S tarting 06/07/17 at 1852, Until 06/11/17 at 1429, flush, Flush pertains to all indwelling lines. Flush per protocol found in the job aid using the link provided on this medication record., Routine documented in this encounter Care Teams Access Services Representative Relationship Specialty Start Date End Date Odalys Laird MD PCP - General Internal Medicine 04/27/17 [address] [place] [address] documented as of this encounter
--- OUTSIDE RECORDS SUMMARY | 2022-01-19 01:22 | XMS_ITS | Encounter Summary ---
:1955 Author Organization [facility] [place] [address] Care Team Providers Name Role Phone Odalys Laird MD Primary Care Provider Reason for Visit Auth/Cert Specialty Diagnoses / Procedures Referred By Contact Refer red To Contact Diagnoses Loculated pleural effusion PLEURAL EFFUSION empyema Procedures @THORACOSCOPY, SURG; W PART. DECORTICATION ([facility] 18.78) Referral ID Status Reason Start Date Expiration Date Visits Requ ested Visits Authorized [id number] 1 1 Encounter Details Date Type Department Care Team Description 06/08/2017 Surgery Main Operating Room Haroon Cherry, @ THORACOSCOPY, SURG; W Nova Dixon MD TOTAL DECORTICATION ([facility] 29.13) [facility] [address] [place] [address] [place] [address] [phone] (Wo rk) Social History Tobacco Use Types [...] - Primary * Cony Dove MD - Resident-Scratcher: Procedure(s): @THORACOSCOPY, SURG; W TOTAL DECORTICATION (WRVU [...] Time Provider Department Center 06/28/2017 9:00 AM [facility] DB XRAY ROOM 1 Xray [facility] 06/28/2017 9:30 AM Haroon Cherry MD LEB CT 3K [facility] 07/01/2017 12:00 PM Gilson Mcgee MD [facility] 06/14, 2pm: Dr. Loyoal, [facility] in [facility] (for sodium check) Instructions Given to Patient at Discharge:. Patient Instructions Call if you have a fever of greater than 101 degrees, shaking chills, develop redness or drainage from your incision site(s), or if you have questions. During normal business hours, Saturday- Saturday 8:00a.m.-5:00 p.m., please call [phone] to speak to a nurse in the Thoracic Clinic. If you get an answering machine or it is after hours or on weekends or holidays please call [phone] and ask to speak to the Thoracic Physician diamond grinder. Exercise & Activity Level: As you recover [...] nurse in the Thoracic Clinic or the diamond grinder Attending Physicianafter hours. We are unable to [...] information. Please call the thoracic clinic at [phone] to confirm/reschedule your appointment. You should arrange to see your primary care physician, in two weeks. If you have any questions or concerns during normal business hours, Saturday- Saturday 8:00 a.m.-5:00 p.m., please call [phone] to speak to a nurse in the Thoracic Clinic. If you get an answering machine or it is after hours or on weekends or holidays please call [phone] and ask to speak to the Thoracic Physician diamond grinder. Signed: Nguyễn Smith MD 06/11/2017 documented in this encounter Discharge Instructions Patient InstructionsNguyễn Smith MD - 06/11/2017 10:40 AM EST Call if you have a fever of greater than 101 degrees, shaking chills, develop redness or drainage from your incision site(s), or if you have questions. During normal business hours, Saturday- Saturday 8:00a.m.-5:00 p.m., please call [phone] to speak to a nurse in the Thoracic Clinic. If you get an answering machine or it is after hours or on weekends or holidays please call [phone] and ask to speak to the Thoracic Physician diamond grinder. Exercise & Activity Level: As you recover [...] nurse in the Thoracic Clinic or the diamond grinder Attending Physicianafter hours. We are unable to [...] information. Please call the thoracic clinic at [phone] to confirm/reschedule your appointment. You should arrange to see your primary care physician, in two weeks. If you have any questions or concerns during normal business hours, Saturday- Saturday 8:00 a.m.-5:00 p.m., please call [phone] to speak to a nurse in the Thoracic Clinic. If you get an answering machine or it is after hours or on weekends or holidays please call [phone] and ask to speak to the Thoracic Physician diamond grinder. documented in this encounter Medications at Time [...] Smith MD - 06/10/2017 12:25 PM EST [facility] Department of Thoracic Surgery Inpatient Progress Note Patient Name: Daniel Urena Patient : 1955 Patient Patient Location: [address] [place] [address] Attending Surgeon: HAROON CHERRY ID: ?? Daniel [...] Encounter Date Admission (Current) from 06/07/[address] [place] [address] Most recent reading at 06/10/2017 5:50 AM Office Visit from 06/07/2017 in General Surgery at [place] Most recent reading at 06/07/2017 4:05 PM [...] appropriately tender, nondistended Ext: SCDs in place, [facility] I/O: I/O last 3 completed shifts: In: [...] Smith MD 06/10/2017 Thoracic Surgery Service Pager [phone] Associated attestation - Haroon Cherry MD - [...] has no needs. Josh Montano, PT Pager [phone] Julio C Urena RCP - 06/09/2017 6:56 PM EST Pt refused respiratory care today stating that he choked on milk earlier and has been coughing all day. Nguyễn Smith MD - 06/09/2017 5:23 AM EST [facility] Department of Thoracic Surgery Inpatient Progress Note Patient Name: Daniel Urena Patient : 1955 Patient Patient Location: [address] [place] [address] Attending Surgeon: HAROON CHERRY ID: ?? Daniel [...] Encounter Date Admission (Current) from 06/07/[address] [place] [address] Most recent reading at 06/08/2017 7:00 AM Office Visit from 06/07/2017 in General Surgery at [place] Most recent reading at 06/07/2017 4:05 PM [...] Smith MD 06/09/2017 Thoracic Surgery Service Pager [phone] Associated attestation - Haroon Cherry MD - [...] OR) Nguyễn Smith MD 06/09/2017 Nguyễn Manuel, ROTATIONAL MOULDING OPERATOR - 06/08/2017 7:56 PM EST Pt semi-fowlers [...] Smith MD - 06/08/2017 12:31 PM EST [facility] Department of Thoracic Surgery Inpatient Progress Note Patient Name: Daniel Urena Patient : 1955 Patient Patient Location: [address] [place] [address] Attending Surgeon: HAROON CHERRY ID: ?? Daniel [...] Encounter Date Admission (Current) from 06/07/[address] [place] [address] Most recent reading at 06/08/2017 7:00 AM Office Visit from 06/07/2017 in General Surgery at [place] Most recent reading at 06/07/2017 4:05 PM [...] barrier technique was used throughout the procedure. Varnish Thinner image was obtained. The retroperitoneal drain was [...] 2 weeks. (Order entered and IRscheduler notified.) Vitreo Retinal Surgeon(s): Resident/Fellow: Angle Mayer MD (PGY 2) Attending: Dr. Elidia [...] 12Fr. ?? Resident/Fellow: Dr. Mayer ?? Attending: IDr. Sr performed this procedure. ? Ir Drain [...] Smith MD 06/08/2017 Thoracic Surgery Service Pager [phone] Associated attestation - Haroon Cherry MD - [...] *) performed by Gilson Mcgee MD at [facility] MAIN OR ??? PRO LAP, ABD/PERIT/OMENTUM, UNLIST N/A 05/31/2017 LAPAROSCOPY, TUMOR EXCISION, RETROPERITONEAL (WRVU *) performed by Gilson Mcgee MD at [facility] MAIN OR Operations/Major Procedures: Operations: 05/31/2017 Surgeon(s) and Role: * Gilson Mcgee MD - Primary * Price Juárez MD - Resident-Scratcher * Julio C Kincaid MD - Resident-Scratcher: Procedure(s): LAPAROSCOPY, DRAINAGE ABD ABSCESS (WRVU *) [...] 06/07/2017 6:59 PM Thoracic Surgery Department Pager [phone] I saw the patient with the resident [...] performance as outlined in this evaluation. Pager: [phone] Vita Ballard, PT 06/11/2017 Inpatient Physical Therapy Plan of [...] Comment: Independent all ADL/IADL tasks. 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 Uses a cane for long distances. Daugther [...] Anticipated Discharge Disposition: home with assist Pager: [phone] SUZIE MILTON OT 06/10/2017 Occupational Therapy Rehabilitation [...] Office of Care Management Initial Assessment Teena Evans, RN reviewed record and discussed patient with [...] Planning: Patient verbally assigned his daughter Agustin Urena as his POA. Current Coping/Education/Information Needs: Patient verbalized understanding of treatment to date & voiced frustration that etiology is unknown. Current Functional Ability: Out of bed ad julian. Functional Status Prior to Admission: Independent. Home Environment: Lives with his sister, but will be staying with daughter, Agustin, ([facility]) which has three levels. 6 stairs down to bedroom. Social & Family Supports/Community Resources: Sister & daughter are very supportive. Behavioral Health History: Denied. Substance Use/Abuse: Denied Other Pertinent/Service Specific Information: na Health/Prescription Coverage: Primary Insurance: Pt applied for and said he qualified for retickr. Pt has not signed the final forms though. Pt mentioned that he has [employer] coverage for accidents. Pt also wondered if his abd. Abscess is related to my work. 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 I suggested he talk with HR at his work place. Secondary Insurance: N/A Prescription Coverage: No Preferred Pharmacy: [facility] in [place], [place] Primary Care Provider: Odalys Laird MD [phone] Patient/Caregiver Goals of Treatment: Control pain & [...] any services needed for discharge. Teena Evans RN Case Manager Pager [phone] Plan of Care - Nini Omalley RN [...] Outcome: Ongoing (Interventions Implemented as Appropriate) 06/08/17 19506/09/17 08 Coping/Psychosocial Plan Of Care Reviewed With [...] *) performed by Gilson Mcgee MD at [facility] MAIN OR ??? PRO LAP, ABD/PERIT/OMENTUM, UNLIST N/A 05/31/2017 LAPAROSCOPY, TUMOR EXCISION, RETROPERITONEAL (WRVU *) performed by Gilson Mcgee MD at [facility] MAIN OR Family History: No family [...] Do not hesitate to page us at [phone] with any further questions or concerns. Meir Colindres MD Infectious Disease Fellow Pager [phone] I have seen and examined this patient. [...] Ongoing (Interventions Implemented as Appropriate) 06/08/17 0800 06/08/17 0915 06/08/17 1300 Gonzales Fall Risk History of Falling [...] Operative Note Patient Name: Daniel Urena : [id number] MR#: [id number] Case Date: 06/08/2017 Surgeon: Surgeon(s) and Role: * Haroon Cherry MD - Primary * Cony Dove MD - Resident-Scratcher Preoperative diagnosis: empyema Postoperative diagnosis: * No [...] Cherry MD - 06/08/2017 2:00 PM EST [facility] Operative Note Patient Name: Daniel Urena : [id number] MR#: [id number] Case Date: 06/08/2017 Surgeon: Surgeon(s) and Role: * Haroon Cherry MD - Primary * Cony Dove MD - Resident-Scratcher Preoperative diagnosis: empyema Postoperative diagnosis: empyema, loculated [...] any bleeding from theport sites. A 28 [place] chest tube was then placed through the seventh intercostal space incision. This was directed posteriorly and apically. Additional holes were cut in a chest tube and it was secured to the skin with an 0 silk suture. A separate stab incision was then made in the approximately thesixth intercostal space slightly anteriorly. 28 [place] chest tube was placed through this incision [...] EVALUATION: ?? Consult Note - Tigre Haley, [facility] - 06/07/2017 7:26 PM EST Clinical Pharmacist Note - Vancomycin Daniel Urena [id number] 1955 Daniel Urena is a 61 y.o. [...] Alternately, during off-hours (9p-7a) you may call [phone] to contact a pharmacist. TIGRE HALEY RPH [...] procedure are i n the results section. NON-PERSONNEL SCHEDULER FINAL REPORT Routine 06/08/2017 3:00 PM R [...] ar e in (NON-FASTING) the results section. PERMANENT MOLD SUPERVISOR SCAN 06/08/2017 12:00 Res ults for [...] TYPE AND SCREEN Routine 06/07/2017 7:45 PM ([facility]/CGP/LEA) EST CALCIUM Routine 06/07/2017 7:45 PM Results [...] residents interpretation and agree with the findings, vEa Salter at 07/01/2017 9:04 AM Narrative 07/01/2017 [...] original. EXAMINATION: XR CHEST PA AND LATERAL ([facility] NERIC) CLINICAL HISTORY: Pneumothorax, post CT pull [...] (06/11/2017 8:12 AM EST) [facility] Time Signature Creatinine 2.43 (H) 0.80 - [facility] 1.50 mg/dL [facility] Estimated GFR 27 (L) >=60 [facility] Comment: The reported eGFR should be multiplied b y 1.2 for patients. The MDRD is not an appropriate measure o f renal function for patients with body mass extremes or in patients with acute kidney failure. http://Zavedenia.com/DHnkdep http://Zavedenia.com/DHMCnkf Specimen Anatomical Collection Method Collection Time Receive d Time (Source) Location / / Volume Laterality Blood specimen 06/11/2017 8:12 AM 018 8:18 (specimen) EST AM EST Resulting Agency Comment Spec In Lab Haroon Cherry MD CHEMISTRY ORDERABLES Performing Organization Address City/State/ZIP Code Phon e Number [place] [id number] XR Chest PA & [...] 06/11/2017 EXAMINATION: XR CHEST PA AND LATERAL ([facility] NERIC) CLINICAL HISTORY: s/p thoracotomy TECHNIQUE: 2 views [...] P athologist Signature Neutrophils % 68.6 % [facility] Neutr Abs (ANC) 5.64 1.70 - [facility] 6.10 [facility] x10(3)/[facility] LABORATORY Lymphocytes % 18.8 % [facility] Lymphocytes Abs 1.5 0.9 - 3.2 [facility] x10(3)/[facility] LABORATORY Monocytes % 9.4 % [facility] Monocyte Abs 0.8 0.3 - 0.9 [facility] x10(3)/[facility] LABORATORY Eosinophils % 2.3 % [facility] Eosinophils Abs 0.2 0.0 - 0.4 [facility] x10(3)/[facility] LABORATORY Basophils % 0.4 % [facility] Basophils Abs 0.0 0.0 - 0.1 [facility] x10(3)/[facility] LABORATORY Immature Gran % 0.50 % [facility] Comment: Immature granulocytes(IG's)percentage an d absolute count will include metamyelocytes, myelocytes, and promyelo cytes. Blood smears from CBCs yielding IG's will be scanned manually for concor dance. If this scan disagrees with the automated IG or if promyelocytes are not ed, a manual differential will be performed. Mehnaz Gran Abs 0.04 0.00 - 0.04 x10(3)/[facility] LABORATORY Specimen Anatomical Collection Method Collection Time Receive d Time (Source) Location / / Volume Laterality Blood specimen 06/10/2017 6:15 AM 018 6:27 (specimen) EST AM EST Resulting Agency Comment Spec In Lab Nguyễn Smith MD HEMATOLOGY ORDERABLES Performing Organization Address City/State/[place] [address] (ABNORMAL) Hemogram (06/10/2017 6:15 AM EST) Analysis Performed At Patho logist Time Signature WBC 8.2 4.0 - 9.5 [facility] x10(3)/[facility] LABORATORY RBC 3.51 (L) 4.58 - [facility] x10(6)/[facility] LABORATORY Hemoglobin 10.3 (L) 13.7 - [facility] 16.[facility] gm/dL [facility] Hematocrit 31.8 (L) 40.5 - [facility] 48.5 % [facility] MCV 90.6 82.9 - [facility] 93.1 [facility] LABORATORY MCH 29.3 27.5 - [facility] 32.1 pg [facility] MCHC 32.4 32.0 - [facility] 35.7 gm/dL [facility] Platelets 369 (H) 145 - 357 [facility] x10(3)/[facility] LABORATORY RDWSD 57.4 (H) 36.0 - [facility] 45.0 [facility] LABORATORY RDWCV 17.2 (H) 11.4 - [facility] 13.8 % [facility] MPV 8.5 7.6 - 12.9 [facility] LABORATORY nRBC % Auto 0.0 % [facility] nRBC Abs Auto 0.000 0.000 - [facility] 0.000 [facility] x10(3)/[facility] LABORATORY Specimen Anatomical Collection Method Collection Time Receive d Time (Source) Location / / Volume Laterality Blood specimen 06/10/2017 6:15 AM 018 6:27 (specimen) EST AM EST Resulting Agency Comment Spec In Lab Nguyễn Smith MD HEMATOLOGY ORDERABLES Performing Organization Address City/State/[place] [address] (ABNORMAL) Basic Metabolic Panel (non-fasting) (06/10/2017 6:15 AM EST) P athologist Signature Glucose Lvl 102 65 - 199 [facility] mg/dL [facility] Comment: Diabetes: >=200 mg/dL plus symp toms BUN 10 10 - 20 mg/dL [facility] Creatinine 2.03 (H) 0.80 - 1.50 mg/dL [facility] Comment: result rechecked-hp Sodium 139 135 - 145 mmol/L [facility] Potassium 3.7 3.5 - 5.0 mmol/L [facility] Comment: Please note: ??Patients with WBC >100,00 0 may have falsely elevated Potassium levels. ??For accurate Potassium quantif ication in these patients send serum separator tube (gold top) for subsequent determinations. ??Contact the Clinical Chemistry Laboratory if there are any qu estions. Chloride 101 98 - 107 mmol/L [facility] CO2 25 22 - 31 mmol/L [facility] Anion Gap 13 5 - 15 mmol/L [facility] Calcium 8.8 8.5 - 10.5 mg/dL [facility] Estimated GFR 34 (L) >=60 [facility] Comment: The reported eGFR should be multiplied b y 1.2 for patients. The MDRD is not an appropriate measure o f renal function for patients with body mass extremes or in patients with acute kidney failure. http://Zavedenia.com/DHnkdep http://Zavedenia.com/DHMCnkf Specimen Anatomical Collection Method Collection Time Receive d Time (Source) Location / / Volume Laterality Blood specimen 06/10/2017 6:15 AM 018 6:27 (specimen) EST AM EST Resulting Agency Comment Spec In Lab Haroon Cherry MD CHEMISTRY ORDERABLES Performing Organization Address City/State/ZIP Code Phon e Number [place] [phone] LAB[address] XR Chest PA & [...] EST) athologist Signature Vanc Trough 22.2 mg/L [facility] LABORATORY Comment: Called by: NEEMA, Read back [...] Organization Address City/State/[place] [address] (ABNORMAL) Vancomycin, trough (06/09/2017 9:55 AM EST) athologist Signature Vanc Trough 25.5 mg/L [facility] ([facility]) [facility] Comment: Called by: KMEli, Read back by: Ti Vega man, Date/Time:06/09/17 [...] Organization Address City/State/[place] [address] XR Chest PA & [...] EST) athologist Signature Green Hold Sample in [facility]. [facility] Specimen Anatomical Collection Method Collection Time Receive d Time (Source) Location / / Volume Laterality Blood specimen Venous Draw / 06/09/2017 7:12 AM 2017 7:20 (specimen) Unknown EST AM EST Nguyễn Smith MD CHEMISTRY ORDERABLES Performing Organization Address City/State/[place] [address] (ABNORMAL) Differential, Automated (06/09/2017 7:12 AM EST) [facility] Time Signature Neutrophils % 80.7 % [facility] LABOR[facility]ORY Neutr Abs (ANC) 10.49 (H) 1.70 - [facility] 6.10 [facility] x10(3)/[facility] L LABORATORY Lymphocytes % 10.8 % [facility] LAB[facility]ORY Lymphocytes Abs 1.4 0.9 - 3.2 [facility] x10(3)/[facility] LABORATORY Monocytes % 6.8 % [facility] Monocyte Abs 0.9 0.3 - 0.9 [facility] x10(3)/[facility] LABORATORY Eosinophils % 0.8 % [facility] LABOR[facility]ORY Eosinophils Abs 0.1 0.0 - 0.4 [facility] x10(3)/[facility] LABORATORY Basophils % 0.4 % [facility] LABOR[facility]ORY Basophils Abs 0.0 0.0 - 0.1 [facility] x10(3)/[facility] LABORATORY Immature Gran % 0.50 % [facility] Comment: Immature granulocytes(IG's)percentage an d absolute count will include metamyelocytes, myelocytes, and promyelo cytes. Blood smears from CBCs yielding IG's will be scanned manually for concor dance. If this scan disagrees with the automated IG or if promyelocytes are not ed, a manual differential will be performed. Mehnaz Gran Abs 0.06 (H) 0.00 - 0.04 x10(3)/[facility] LABORATORY Specimen Anatomical Collection Method Collection Time Receive d Time (Source) Location / / Volume Laterality Blood specimen 06/09/2017 7:12 AM 018 7:20 (specimen) EST AM EST Resulting Agency Comment Spec In Lab Nguyễn Smith MD HEMATOLOGY ORDERABLES Performing Organization Address City/State/[place] [address] (ABNORMAL) Hemogram (06/09/2017 7:12 AM EST) Analysis Performed At Patho logist Time Signature WBC 13.0 (H) 4.0 - 9.5 [facility] x10(3)/[facility] LABORATORY RBC 3.93 (L) 4.58 - [facility] 5.54 [facility] x10(6)/[facility] LABORATORY Hemoglobin 11.4 (L) 13.7 - [facility] 16.[facility] gm/dL [facility] Hematocrit 35.4 (L) 40.5 - [facility] 48.5 % [facility]ORY MCV 90.1 82.9 - [facility] 93.1 [facility] LABORATORY MCH 29.0 27.5 - [place] 32.1 pg [facility] LABORATORY MCHC 32.2 32.0 - [place] 35.7 gm/dL [facility] Platelets 452 (H) 145 - 357 [facility] x10(3)/[facility] LABORATORY RDWSD 57.6 (H) 36.0 - [place] RAJENDRA 45.0 [facility] LABORATORY RDWCV 17.2 (H) 11.4 - [facility] RAJENDRA 13.8 % [facility] LABORATORY MPV 8.8 7.6 - 12.9 [facility] LABORATORY nRBC % Auto 0.0 % [facility] nRBC Abs Auto 0.000 0.000 - [facility] RAJENDRA 0.000 [facility] x10(3)/[facility] LABORATORY Specimen Anatomical Collection Method Collection Time Receive d Time (Source) Location / / Volume Laterality Blood specimen 06/09/2017 7:12 AM 018 7:20 (specimen) EST AM EST Resulting Agency Comment Spec In Lab Nguyễn Smith MD HEMATOLOGY ORDERABLES Performing Organization Address City/State/ZIP Code Phon e Number [place] [phone] HOSPITAL LAB[address]ORY Drive XR Chest PA or [...] ORDERABLES Anaerobic Culture (06/08/2017 3:15 PM EST) [facility] [employer] Method Time Signature Anaerobic No anaerobic [facility] Culture organisms [facility] LABORATORY Specimen Anatomical Collection Method Collection Time Receive d Time (Source) Location / / Volume Laterality Specimen of 06/08/2017 3:15 PM 8 4:24 unknown material EST PM EST (specimen) Comment: LEFT PLEURAL TISSUE Resulting Agency Comment Spec In Lab Haroon Cherry MD MICROBIOLOGY - GENERAL ORDER TIAN Performing Organization Address City/State/[place] [address] Tissue culture (06/08/2017 3:15 PM EST) Component Value Ref Test Analysis Performed At [facility] Range Method Time Signature Tissue No growth [place] Culture [facility] LABORATORY Gram Stain Few White Blood Cells seen MA RY No microorganisms seen. [facility] LABORATORY Specimen Anatomical Collection Method Collection Time Receive d Time (Source) Location / / Volume Laterality Specimen of 06/08/2017 3:15 PM 8 4:24 unknown material EST PM EST (specimen) Comment: LEFT PLEURAL TISSUE Resulting Agency Comment Spec In Lab Haroon Cherry MD MICROBIOLOGY - GENERAL ORDER TIAN Performing Organization Address City/[facility]/[place] [address] Specimen to Pathology (06/08/2017 3:13 PM EST) Specimen Anatomical Collection Method Collection Time Receive d Time (Source) Location / / Volume Laterality AP Specimen 06/08/2017 3:13 PM 8 3:53 EST PM EST Narrative [facility] - 06/08/2017 3:54 PM EST Specimen requisition ordered. ??Separate Pathology report to follow Resulting Agency Comment Spec In Lab Haroon Cherry MD PATHOLOGY/CYTOLOGY ORDERABLE S Performing Organization Address [facility] [place] [address] Cytopathology Non-Gynecological (06/08/2017 3:13 PM EST) Specimen Anatomical Collection Method Collection Time Receive d Time (Source) Location / / Volume Laterality AP Specimen 06/08/2017 3:13 PM 8 3:54 EST PM EST Narrative [facility] - 06/08/2017 3:54 PM EST Specimen requisition ordered. ??Separate Pathology report to follow Resulting Agency Comment Spec In Lab Haroon Cherry MD PATHOLOGY/CYTOLOGY ORDERABLE S Performing Organization Address City/[facility] [place] [address] Anaerobic Culture (06/08/2017 3:10 PM EST) [facility] [address] [address] g[facility] Method Time Signature Anaerobic No anaerobic [facility] Culture organisms [facility] LABORATORY Specimen Anatomical Collection Method Collection Time Receive d Time (Source) Location / / Volume Laterality Specimen of 06/08/2017 3:10 PM 8 4:24 unknown material EST PM EST (specimen) Comment: LEFT PLEURAL RIND POSTERIOR Resulting Agency Comment Spec In Lab Haroon Cherry MD MICROBIOLOGY - GENERAL ORDER TIAN Performing Organization Address City/State/Z[place] [address] Tissue culture (06/08/2017 3:10 PM EST) Component Value Ref Test Analysis Performed At [facility] Method Time Signature Tissue No growth [facility] Culture [facility] LABORATORY Gram Stain Few White Blood Cells seen [place] R[place] No microorganisms seen. [facility] LABORATORY Specimen Anatomical Collection Method Collection Time Receive d Time (Source) Location / / Volume Laterality Specimen of 06/08/2017 3:10 PM 8 4:24 unknown material EST PM EST (specimen) Comment: LEFT PLEURAL RIND POSTERIOR Resulting Agency Comment Spec In Lab Haroon Cherry MD MICROBIOLOGY - GENERAL ORDER TIAN Performing Organization Address City/[facility]/[place]IP [place] [address] [facility] [address] Surgical Pathology Report (06/08/2017 3:00 PM EST) Component Value Ref Test Analysis Performed At [facility] Method Time Signature Surgical [id number] ? Location: 4WST; 0419; B [facility] Report The signing pathologist has (i) examined the relevant preparation(s) for the [facility] specimen(s) and (ii) rendered or confirmed the diagnosis(es) . HOSPITAL LABORATORY . ?Surgic al Pathology DIAGNOSIS A - Left pleural rind posterior, excision: - ?? Acute suppurative fibrinous pleuritis ??- ?(see Dis cussion.) Electronically signed by: ??Sapna Javier DO Verified: ??06/13/2017 ?Pathologist Performed at: ??-[facility] Dept. of Pathology, [place], [place] DISCUSSION The ed was reviewed. CLINICAL INFORMATION Specimen Submitted: A [...] No discrete lesions are identified grossly. Sections/Processing: Refrigeration Engineering Teacher sections are submitted. (R2) ??cf Specimen (Source) Anatomical Collection Method Collection Time Re ceived Time Location / / Volume Laterality 06/08/2017 3:00 PM EST Haroon Cherry MD PATHOLOGY/CYTOLOGY ORDERABLE S Performing Organization Address City/State/[place] [address] Non-Commercial Energy Auditor Final Report (06/08/2017 3:00 PM EST) Component Value Ref Test Analysis Performed At [facility] Range Method Time Signature Non-Commercial Energy Auditor Final [id number] ? Location: 4WST; [facility]9; B [place] Polly JUAREZCOCK The signing pathologist has (i) examined the relevant preparation(s) for the [facility] specimen(s) and (ii) rendered or confirmed the diagnosis(es) . HOSPITAL LABORATORY . ? No n-Commercial Energy Auditor Final DIAGNOSIS Negative for Malignancy Electronically signed by: ??Grover JOHNSON PhD, Tim Fontanez Verified: ??06/12/2017 ?Pathologist Performed at: ??-[facility] Dept. of Pathology, [place], [place] DISCUSSION Pleural fluid, laparoscopic: The specimen [...] MD PATHOLOGY/CYTOLOGY ORDERABLE S Performing Organization Address City/[facility]/ZIP Code Phon e Number [address] Anaerobic Culture (06/08/2017 3:00 PM EST) [facility] Method Time Signature Anaerobic No anaerobic [facility] Culture organisms [facility] LABORATORY Specimen Anatomical Collection Method Collection Time Receive d Time (Source) Location / / Volume Laterality Pleural fluid 06/08/2017 3:00 PM 06/08/19 18 4:23 specimen EST PM EST (specimen) Comment: PLERUAL FLUID LEFT Resulting Agency Comment Spec In Lab Haroon Cherry MD MICROBIOLOGY - GENERAL ORDER TIAN Performing Organization Address City/[facility]/[place] [address] Body Fluid Culture, Aerobic (06/08/2017 3:00 PM EST) Component Value Ref Test Analysis Performed At [facility] Method Time Signature Body Fluid No growth [place] Culture [facility] LABORATORY Gram Stain Cytocentrifuge Gram Stain performed [facility] No WBC's seen. [place] No microorganisms seen. [facility] LABORATORY Specimen Anatomical Collection Method Collection Time Receive d Time (Source) Location / / Volume Laterality Pleural fluid 06/08/2017 3:00 PM 06/08/19 18 4:23 specimen EST PM EST (specimen) Comment: PLERUAL FLUID LEFT Resulting Agency Comment Spec In Lab Haroon Cherry MD MICROBIOLOGY - GENERAL ORDER TIAN Performing Organization Address City/[facility]/[place] [address] Cell Count Body Fluid Peritoneal Fluid (06/08/2017 3:00 PM EST) [facility] Method Time Signature Spec Type BF Peritoneal Fl [facility] LABORATORY Color BF Yellow [facility] LABORATORY Appearance BF Cloudy [facility] LABOR[facility]ORY WBC BF Ct 684 /mcl [facility] LABOR[facility]ORY Comment: Counts may be inaccurate [...] to patients chart. Polymorph % 63 % [facility] LABORATORY Comment: Polymorphonuclear cell percent and absol rj values may contain Neutrophils, Eosinophils, and Basophils. Body fluid s mear will be scanned manually for concordance. Mononuc % 37 % [facility] LABORATORY Comment: Mononuclear cell percent and absolute va lues may contain Lymphocytes and Monocytes. Body fluid smear will be scan omari manually for concordance. Polymorph BF ABS 429 /[facility] LABORATORY Comment: Polymorphonuclear cell percent and absol rj values may contain Neutrophils, Eosinophils, and Basophils. Body fluid s mear will be scanned manually for concordance. Mononuc ABS 255 /[facility] LABORATORY Comment: Mononuclear cell percent and absolute [...] Organization Address City/State/[place] [address] Protein Level Body Fluid Pleural, Left (06/08/2017 3:00 PM EST) P athologist Signature Protein, BF 5.3 gm/dL [facility] LABORATORY Comment: There is no reference range available fo r the specimen type submitted. For determination of transudative vs. ex udative pleural effusions: Transudates: Pleural Total Protein/Serum Total Protein <0.5 g/dL. Exudates: Pleural Total Protein/Serum To jany Protein >0.5 g/dL. Protein BF Type Pleural, Left [facility] LABORATORY Specimen Anatomical Collection Method Collection Time Receive d Time (Source) Location / / Volume Laterality Pleural fluid 06/08/2017 3:00 PM 06/08/19 18 3:53 specimen EST PM EST (specimen) Resulting Agency Comment Spec In Lab Haroon Cherry MD BODY FLUIDS AND STOOLS ORDER TIAN Performing Organization Address [facility] [address] Lactate Dehydrogenase Body Fluid Pleural, Left (06/08/2017 3:00 PM EST) athologist Signature LDH BF 1,916 unit/L [facility] LABORATORY Comment: No reference range is available for the specimen type submitted. ??The performance of this assay for the submit jeremías type has not been validated and results should be interpreted accordingl y and with regard to the patient's clinical status. Corrected from 1724 unit/L [NA] on 06/08 05:37 by Aaron Fuentes. LDH, BF Type Pleural, Left [facility] LABORATORY Specimen Anatomical Collection Method Collection Time Receive d Time (Source) Location / / Volume Laterality Pleural fluid 06/08/2017 3:00 PM 06/08/19 18 3:53 specimen EST PM EST (specimen) Resulting Agency Comment Spec In Lab Haroon Cherry MD BODY FLUIDS AND STOOLS ORDER TIAN Performing Organization Address [facility] [address] Glucose Level Body Fluid Pleural, Left (06/08/2017 3:00 PM EST) athologist Signature Glucose, BF 54 mg/dL [facility] LABORATORY Comment: No reference range is available for the specimen type submitted. ??The performance of this assay for the submit jeremías type has not been validated and results should be interpreted accordingl y and with regard to the patient's clinical status. Gluc, BF Type Pleural, Left [facility] LABORATORY Specimen Anatomical Collection Method Collection Time Receive d Time (Source) Location / / Volume Laterality Pleural fluid 06/08/2017 3:00 PM 06/08/19 18 3:53 specimen EST PM EST (specimen) Resulting Agency Comment Spec In Lab Haroon Cherry MD BODY FLUIDS AND STOOLS ORDER TIAN Performing Organization Address City/State/ZIP Code Phon e Number [address] AFB culture Pleural Fluid (06/08/2017 3:00 PM EST) Patholo gist Method Time Signature Acid Fast No Acid Fast Bacilli isolated [place] Bacilli If active tuberculosis is suspected, the patient should be on [employer] RAJENDRA Culture PRECAUTIONS. [facility] Infection Prevention for assistance if needed. HOSPITAL LABORATORY Acid Fast No Acid Fast [place] Stain Bacilli seen [facility] LABORATORY Specimen Anatomical Collection Method Collection Time Receive d Time (Source) Location / / Volume Laterality Pleural fluid 06/08/2017 3:00 PM 06/08/19 18 4:23 specimen EST PM EST (specimen) Comment: PLERUAL FLUID LEFT Resulting Agency Comment Spec In Lab Haroon Cherry MD MICROBIOLOGY - GENERAL ORDER TIAN Performing Organization Address City/[facility]/ZIP Code Phon e Number [address] Differential, Automated (06/08/2017 5:40 AM EST) P athologist Signature Neutrophils % 63.1 % [facility] LABORATORY Neutr Abs (ANC) 5.13 1.70 - [facility] 6.10 [facility] x10(3)/[facility] LABORATORY Lymphocytes % 24.0 % [facility] LABORATORY Lymphocytes Abs 2.0 0.9 - 3.2 [facility] x10(3)/[facility] LABORATORY Monocytes % 9.6 % [facility] LABORATORY Monocyte Abs 0.8 0.3 - 0.9 [facility] x10(3)/[facility] LABORATORY Eosinophils % 2.3 % [facility] LABORATORY Eosinophils Abs 0.2 0.0 - 0.4 [facility] x10(3)/[facility] LABORATORY Basophils % 0.6 % [facility] LABORATORY Basophils Abs 0.0 0.0 - 0.1 [facility] x10(3)/[facility] LABORATORY Immature Gran % 0.40 % [facility] LABORATORY Comment: Immature granulocytes(IG's)percentage an d absolute count will include metamyelocytes, myelocytes, and promyelo cytes. Blood smears from CBCs yielding IG's will be scanned manually for concor dananna marie. If this scan disagrees with the automated IG or if promyelocytes are not ed, a manual differential will be performed. Mehnaz Gran Abs 0.03 0.00 - 0.04 x10(3)/[facility] MAR Y [facility] LABORATORY Specimen Anatomical Collection Method Collection Time Receive d Time (Source) Location / / Volume Laterality Blood specimen 06/08/2017 5:40 AM 018 5:48 (specimen) EST AM EST Resulting Agency Comment Spec In Lab Nguyễn Smith MD HEMATOLOGY ORDERABLES Performing Organization Address City/State/[place] [address] (ABNORMAL) Hemogram (06/08/2017 5:40 AM EST) Analysis Performed At Patho logist Time Signature WBC 8.1 4.0 - 9.5 [facility] x10(3)/[facility] LABORATORY RBC 3.43 (L) 4.58 - [facility] x10(6)/[facility] LABORATORY Hemoglobin 10.0 (L) 13.7 - [facility] 16.[facility] gm/dL [facility] LABORATORY Hematocrit 31.2 (L) 40.5 - [facility] 48.5 % [facility] LABORATORY MCV 91.0 82.9 - [facility] 93.1 [facility] LABORATORY MCH 29.2 27.5 - [facility] RAJENDRA 32.1 pg [facility] LABORATORY MCHC 32.1 32.0 - [facility] RAJENDRA 35.7 gm/dL [facility] LABORATORY Platelets 332 145 - 357 [facility] x10(3)/[facility] LABORATORY RDWSD 59.5 (H) 36.0 - [facility] RAJENDRA 45.0 [facility] LABORATORY RDWCV 17.7 (H) 11.4 - [facility] RAJENDRA 13.8 % [facility] LABORATORY MPV 8.6 7.6 - 12.9 [facility] LABORATORY nRBC % Auto 0.0 % [facility] LABORATORY nRBC Abs Auto 0.000 0.000 - [facility] Audicus 0.000 [facility] x10(3)/[facility] LABORATORY Specimen Anatomical Collection Method Collection Time Receive d Time (Source) Location / / Volume Laterality Blood specimen 06/08/2017 5:40 AM 018 5:48 (specimen) EST AM EST Resulting Agency Comment Spec In Lab Nguyễn Smith MD HEMATOLOGY ORDERABLES Performing Organization Address City/State/[place] [address] (ABNORMAL) Comprehensive metabolic panel (non-fasting) (06/08/2017 5:40 AM EST) athologist Signature Glucose Lvl 97 65 - 199 [facility] mg/dL [facility] LABORATORY Comment: Diabetes: >=200 mg/dL plus symp toms BUN 9 (L) 10 - 20 mg/dL [facility] LABORATORY Creatinine 0.95 0.80 - 1.50 mg/dL [facility] LABORATORY Sodium 140 135 - 145 mmol/L [facility] LABORATORY Potassium 4.0 3.5 - 5.0 mmol/L [facility] LABORATORY Comment: Please note: ??Patients with WBC >100,00 0 may have falsely elevated Potassium levels. ??For accurate Potassium quantif ication in these patients send serum separator tube (gold top) for subsequent determinations. ??Contact the Clinical Chemistry Laboratory if there are any qu estions. Chloride 100 98 - 107 mmol/L [facility] LABORATORY CO2 26 22 - 31 mmol/L [facility] LABORATORY Anion Gap 14 5 - 15 mmol/L [facility] LABORATORY Calcium 8.6 8.5 - 10.5 mg/dL [facility] LABORATORY Total Protein 7.0 6.1 - 8.0 gm/dL [facility] LABORATORY Albumin 3.0 (L) 3.2 - 5.2 gm/dL [facility] LABORATORY AST 10 0 - 39 unit/L [facility] LABORATORY ALT <5 0 - 55 unit/L [facility] LABORATORY Alk Phos 52 40 - 120 unit/L [facility] LABORATORY Total Bilirubin 0.4 0.2 - 1.3 mg/dL [facility] LABORATORY Estimated GFR >60 >=60 [facility] LABORATORY Comment: The reported eGFR should be multiplied b y 1.2 for patients. The MDRD is not an appropriate measure o f renal function for patients with body mass extremes or in patients with acute kidney failure. http://Zavedenia.com/DHnkdep http://Zavedenia.com/DHMCnkf Specimen Anatomical Collection Method Collection Time Receive d Time (Source) Location / / Volume Laterality Blood specimen 06/08/2017 5:40 AM 018 5:48 (specimen) EST AM EST Resulting Agency Comment Spec In Lab Haroon Cherry MD CHEMISTRY ORDERABLES Performing Organization Address City/[facility] Phon e Number [address] (ABNORMAL) Prothrombin Time (06/08/2017 5:40 AM EST) P athologist Signature PT 14.5 (H) 11.8 - 14.0 [facility] LABORATORY INR 1.2 (H) 0.9 - 1.1 [facility] LABORATORY Comment: An INR <2.0 indicates [...] Cherry MD HEMATOLOGY ORDERABLES Performing Organization Address City/[facility] Phon e Number [address] Phosphorus (06/08/2017 5:40 AM EST) P athologist Signature Phosphorus 4.0 2.5 - 4.5 [facility] mg/dL [facility] LABORATORY Specimen Anatomical Collection Method Collection Time Receive d Time (Source) Location / / Volume Laterality Blood specimen 06/08/2017 5:40 AM 018 5:48 (specimen) EST AM EST Resulting Agency Comment Spec In Lab Haroon Cherry MD CHEMISTRY ORDERABLES Performing Organization Address City/[facility]/ZIP Code Phon e Number [address] Magnesium (06/08/2017 5:40 AM EST) athologist Signature Magnesium 0.85 0.69 - 1.07 [facility] mmol/L [facility] LABORATORY Specimen Anatomical Collection Method Collection Time Receive d Time (Source) Location / / Volume Laterality Blood specimen 06/08/2017 5:40 AM 018 5:48 (specimen) EST AM EST Resulting Agency Comment Spec In Lab Haroon Cherry MD CHEMISTRY ORDERABLES Performing Organization Address City/[facility] Phon e Number [address] SCAN DOC: PERMANENT MOLD SUPERVISOR (06/08/2017 12:00 AM EST) Narrative 06/08/2017 [...] ABORH Recheck Status (06/07/2017 7:45 PM EST) [facility] Method Time Signature ABORH Type Completed [facility] LABORATORY Specimen Anatomical Collection Method Collection Time Receive d Time (Source) Location / / Volume Laterality Blood specimen 06/07/2017 7:45 PM 018 8:10 (specimen) EST PM EST Resulting Agency Comment Spec In Lab Nguyễn Smith MD BLOOD BANK ORDERABLES Performing Organization Address City/[facility]/ZIP Code Phon e Number [address] ABO/Rh Typing (06/07/2017 7:45 PM EST) athologist Signature ABORh Type A Pos [facility] LABORATORY Specimen Anatomical Collection Method Collection Time Receive d Time (Source) Location / / Volume Laterality Blood specimen Venous Draw / 06/07/2017 7:45 PM 2017 8:10 (specimen) Unknown EST PM EST Resulting Agency Comment Spec In Lab Nguyễn Smith MD BLOOD BANK ORDERABLES Performing Organization Address City/[facility]/[place] [address] Antibody screen (06/07/2017 7:45 PM EST) [facility] Method Time Signature Ab Screen Negative [facility] LABORATORY Expires at 06/10/2017 [place] RAJENDRA [id number] on: [facility] LABORATORY Specimen Anatomical Collection Method Collection Time Receive d Time (Source) Location / / Volume Laterality Blood specimen 06/07/2017 7:45 PM 018 8:10 (specimen) EST PM EST Resulting Agency Comment Spec In Lab Nguyễn Smith MD BLOOD BANK ORDERABLES Performing Organization Address City/[facility]/ZIP Code Phon e Number [address] (ABNORMAL) APTT (06/07/2017 7:45 PM EST) P athologist Signature PTT 39 (H) 25 - 35 sec [facility] LABORATORY Comment: The recommended therapeutic range for fu ll dose, unfractionated heparin at [facility] is 80 ? 114 seconds. The use [...] Cherry MD HEMATOLOGY ORDERABLES Performing Organization Address City/[facility]/ZIP Code Phon e Number [address] Calcium (06/07/2017 7:45 PM EST) P athologist Signature Calcium 8.8 8.5 - 10.5 [place] RAJENDRA mg/dL [facility] LABORATORY Specimen Anatomical Collection Method Collection Time Receive d Time (Source) Location / / Volume Laterality Blood specimen 06/07/2017 7:45 PM 018 7:52 (specimen) EST PM EST Resulting Agency Comment Spec In Lab Haroon Cherry MD CHEMISTRY ORDERABLES Performing Organization Address City/[facility]/ZIP Code Phon e Number [address] documented in this encounter Visit Diagnoses Diagnosis Loculated pleural effusion Unspecified pleural effusion Pleural empyema Empyema without mention of fistula Pleural empyema Empyema without mention of fistula Loculated pleural effusion Unspecified pleural effusion documented in this encounter Administered Medications Inactive Administered Medications - up to 3 most recent administrations Medication Order MAR Action Action Date Dose Rate Site BUpivacaine liposome Given 06/08/2017 5:00 PM 13.3 mg 19- Surgical Site (PF) (EXPAREL) 1.3 % EST (13.3 mg/mL) injection for infiltration ONCE PRN, Starting on 06/08/17 at 1700, Until Sat06/11/17 at 1429, Intra-Operative (Intra-Procedure) cefTRIAXone (ROCEPHIN) 2 g vial attach New Bag 06/10/2017 1:58 PM EST 2 g 100 mL/hr to sodium chloride 0.9% 50 mL Mini-Bag [...] 06/08/17 at 0800, Until Sat06/11/17 at 1429, call centre supervisor to O.R. (06/08/2017), On c all to O.R. 06/08/2017, Routine ibuprofen (ADVIL;MOTRIN) tablet 600 mg 600 mg, Oral, EVERY 6 HOURS PRN, Startin g on 06/09/17 at 1000, Until Sat06/11/17 at 1429, Pain, Administer orally with milk or food to minimize GI irritation. Maximum dose of 3200 mg from all sources in 24 hours, , Do not administer within 6 hours of ketorolac, Routine ketorolac (TORADOL) injection 15 mg Given 06/11/2017 9:17 AM EST 15 mg 15 mg, Intravenous, EVERY 6 HOURS PRN, Starting on 06/08/17 at 2242, Until Sat06/11/17 at 1429, Pain, Routine Given 06/10/2017 9:16 AM EST 15 mg Given 06/09/2017 12:25 PM EST 15 mg metroNIDAZOLE (FLAGYL) tablet 500 mg Given 06/11/2017 5:16 AM EST 500 mg 500 mg, Oral, EVERY 8 HOURS SCHEDULED, First dose on Sat06/09/17 at 1445, Until Discontinued, Routine Given 06/10/2017 9:08 PM EST 500 mg Given 06/10/2017 5:32 PM EST 500 mg sodium chloride 0.9 % flush 5 mL Given 06/11/2017 9:11 AM EST 5 mLs 5 mL, Intravenous, 2 TIMES DAILY, First dose on Sat06/07/17 at 2100, Until Discontinued, Routine Given 06/10/2017 9:08 PM EST 5 mLs Given 06/10/2017 9:04 AM EST 5 mLs documented in this encounter Active and Recently Administered Medications Times are shown in EST. Scheduled Medication Order 06/09/2017 06/10/2017 06/11/2017 acetaminophen (TYLENOL) tablet 1,000 mg 0200 (Not Give n - Provider: Valeriy Guerra RN - Reason: Patient/family refused)0800 (Not Given - Provider: Ti Quintero RN - Reason: Patient/family refused - [...] Provider: Ti richards RN - Reason: Patient/family refused)2000 (Not Given - Provider: Nini Omalley RN [...] Omalley RN) 2107 (Given - Provider: Coco Padgett RN) 40 mg, Subcutaneous, NIGHTLY, First dose on Sat06/07/17 at 2100, Until Discontinued, Routine metroNIDAZOLE (FLAGYL) tablet 500 mg 144 (Given - Pro vider: Ti Quintero RN)2142 (Given - Provider: Nini Omalley RN) 0627 (Given - Provider: Nini Omalley RN)1732 (Given - Provider: Leslie Lopez RN)2108 (Given - Provider: Coco Padgett, MEET) 0516 (Given - Provider: Coco Padgett RN) 500 mg, Oral, EVERY 8 HOURS SCHEDULED, F irst dose on Sat06/09/17 at 1445, Until Discontinued, Routine senna-docusate (PERICOLACE) 8.6-50 mg per tablet 2 tab let 0900 (Not Given - Provider: Ti Quintero RN - Reason: Patient/family refused)2099 (Not Given - Provider: Nini Omalley RN - Reason: Patient/family refused) 09 (Not Given - Provider: Leslie Lopez RN - Reason: Patient/family refused)2099 (Not Given - Provider: Coco Padgett RN - Reason: Patient/family refused) 09 (Not Given - Provider: Ti Quintero RN - Reason: Patient/family refused) 2 tablet, Oral, 2 TIMES DAILY, First dos e on Sat06/07/17 at 2100, Until Discontinued, Routine sodium chloride 0.9 % flush 5 mL 0916 (Given - Provide r: Ti Quintero RN)2045 (Given - Provider: Nini Omalley, MEET) 09 (Given - Provider: Leslie Lopez RN)2107 (Given - Provider: Coco Padgett RN) 0911 (Given - Provider: Ti Quintero RN) 5 mL, Intravenous, 2 TIMES DAILY, First dose on Sat06/07/17 at 2100, Until Discontinued, Routine Continuous Medication Order 06/09/2017 06/10/2017 06/11/2017 lactated Ringers infusion (CANCELED) 0152 (New Bag - P rovider: Valeriy Guerra RN)0605 (Stopped - Provider: Valeriy Guerra RN) 75 mL/hr, at 75 mL/hr, Intravenous, CONT INUOUS, Starting Sat06/07/17 at 1915, Until 06/09/17 at 0533 PRN Medication Order 06/09/2017 06/10/2017 06/11/2017 heparin (Porcine) subcutaneous injection 5,000 Units 5,000 Units, Subcutaneous, ONCE PRN, 1 d ose, Starting 06/08/17 at 0800, Until Sat06/11/17 at 1429, call centre supervisor to O.R. (06/08/2017), call centre supervisor to O.R. 06/08/2017, Routine ibuprofen (ADVIL;MOTRIN) tablet 600 mg 600 mg, Oral, EVERY 6 HOURS PRN, Startin g 06/09/17 at 1000, Until Sat06/11/17 at 1429, Pain, Administer orally with milk or food to minimize GI irritation. Maximum dose of 3200 mg from all sources in 24 hours, , Do not administer within 6 hours of ketorolac, Rout ine ketorolac (TORADOL) injection 15 mg 1225 (Given - Prov ider: Ti Quintero RN) 0916 (Given - Provider: Leslie Lopez RN) 0917 (Give n - Provider: Ti Quintero RN) 15 mg, Intravenous, EVERY 6 HOURS PRN, S tarting 06/08/17 at 2242, Until Tu06/11/17 at 1429, Pain, Routine lidocaine (XYLOCAINE) 10 mg/mL (1 %) injection 3 mg 3 mg (0.3 mL), Subcutaneous, ONCE PRN, 1 dose, Starting 06/07/17 at 1852, Until Sat06/11/17 at 1429, for discomfort with PIV insertion, Routine sodium chloride 0.9 % flush 5-20 mL 5-20 mL, Intravenous, EVERY 1 MIN PRN, S tarting 06/07/17 at 1852, Until Sat06/11/17 at 1429, flush, Flush pertains to all indwelling lines. Flush per protocol found in the job aid using the link provided on this medication record., Routine documented in this encounter Care Teams Laser Set Up Operator Relationship Specialty Start Date End Date Odalys Laird MD PCP - General Internal Medicine 04/27/17 [facility] [address] [place] [address] documented as of this encounter
--- OUTSIDE RECORDS SUMMARY | 2022-01-19 01:22 | XMS_ITS | Encounter Summary ---
:1955 Author Organization [facility] [place] [address] Care Team Providers Name Role Phone Odalys Laird MD Primary Care Provider Reason for Visit Reason Comments Follow-up Auth/Cert Specialty Diagnoses / Procedures Referred By Contact Refer red To Contact Diagnoses Loculated pleural effusion PLEURAL EFFUSION empyema Procedures @THORACOSCOPY, SURG; W PART. DECORTICATION (WRVU 18.78) Referral ID Status Reason Start Date Expiration Date Visits Requ ested Visits Authorized [id number] 1 1 Encounter Details Date Type Department Care Team Description 06/07/2017 Office Visit General Surgery at [facility] Gilson Mcgee MD Postop check [facility] [place] [address] GENERAL SURGERY [phone] [place], [place] [address] (Wo rk) Social History Tobacco Use Types [...] Sign Reading Time Taken Comments Blood Pressure - - Pulse - - Temperature - - Respiratory Rate - - Oxygen Saturation - - Inhaled Oxygen Concentration - - Weight 154.2 kg (340 lb) 06/07/2017 4:05 PM EST Height - - Body Mass Index 50.21 05/24/2017 7:59 PM EST documented in this encounter Progress Notes Gilson Mcgee MD - 06/07/2017 4:15 PM EST Mr. Urena returns to clinic today. He reports feeling reasonably well overall. No significant output from abdominal drain, serous fluid from retroperitoneal drains. No fevers, some degree of cough. On exam, Wt (!) 154.2 kg (340 lb) BMI 50.21 kg/m2 He appears in no acute distress though some degree of dyspnea seems evident (RA O2 Sats 99%) Abdomen soft, NT/ND. Pigtail no drainage in bulb. Ameya drains in retroperitoneum largely serous. CT scan suggests near complete resolution of abscess in both retroperitoneum and abdominal locations. However, fluid and air in pleural space consistent with possible empyema. Assessment/Plan: Mr. Urena is a 61 year old male who appears to have clinically and radiographically completely resolved a massive retroperitoneal abscess after IR and finally surgical drainage. I removed his anterior pigtail, the less productive of two ameya drains today in clinic. However, he has radiographic stigmata of early empyema likely due to extent and manipulation of infra-diaphragmatic infection. I've therefore reviewed and discussed his case with Dr. Arcos of Thoracic surgery and anticipate admission and potential for IR vs. Surgical drainage of this thoracic process under his care. Mr. Urena understands this process and agrees with this plan. documented in this encounter Plan of Treatment Not on filedocumented as of this encounter Visit Diagnoses Diagnosis Postop check Follow-up examination, following unspeci fied surgery documented in this encounter Care Teams Outsole Compressor Relationship Specialty Start Date End Date Odalys Laird MD PCP - General Internal Medicine 04/27/[address] [place] [address] [address] [place] [address] documented as of this encounter
--- OUTSIDE RECORDS SUMMARY | 2022-01-19 01:22 | XMS_ITS | Encounter Summary ---
:1955 Author Organization [facility] [place] [address] Care Team Providers Name Role Phone Odalys Laird MD Primary Care Provider Encounter Details Date Type Department Care Team Description 06/28/2017 Hospital Encounter XRay at [facility] Loculated pleural [address] [place] [address] [place] [address] Social History Tobacco Use Types Packs/Day Years Used Date Former Smoker Cigarettes 4 22 04/28/1968 - 1 Smokeless Tobacco: Former User Chew Q uit: 04/28/2017 Comments: haven't used chew in a few wee ne Alcohol Use Standard Drinks/Week Comments Yes 0 [...] on file documented as of this encounter Medications at Time of Discharge Medication Sig Dispensed Refills Start Date End Date naproxen sodium (ANAPROX) Take 220 mg by mouth 0 220 mg Tablet as needed. documented as of this encounter Plan of Treatment Not on filedocumented as of this encounter Procedures Procedure Name Priority Date/Time Associated Diagnosis Comme nts XR CHEST PA AND Routine 06/28/2017 8:52 AM Loculated pleural R esults for this LATERAL EST effusion procedure are i n the results section. [...] 2017 EXAMINATION: XR CHEST PA AND LATERAL ([email or web address]) CLINICAL HISTORY: s/p L VATS on 8 [...] Eva Salter at 07/01/2017 9:04 AM Haroon Arcos MD IMG DX ORDERABLES documented in this encounter Visit Diagnoses Diagnosis Loculated pleural effusion Unspecified pleural effusion documented in this encounter Care Teams Hand Cementer Relationship Specialty Start Date End Date Odalys Laird MD PCP - General Internal Medicine 04/27/[address] [place] [address] [address] [place] [address] documented as of this encounter
--- OUTSIDE RECORDS SUMMARY | 2022-01-19 01:22 | XMS_ITS | Encounter Summary ---
:1955 Author Organization [facility] Address [address] [place] [address] Care Team Providers Name Role Phone Odalys Laird MD Primary Care Provider Reason for Visit Reason Comments Follow-up Encounter Details Date Type Department Care Team Description 06/28/2017 Office Visit Infectious Disease at [facility], Radha s, retroperitoneal; [facility] Price Miller MD Pleural empyema; [facility] ht sweats; Drive Anemia, unspecified type; [place] [id number] [phone] Nocturia more than twice per night [id number] Social History Tobacco Use Types Packs/Day Years [...] 20 06/28/2017 10:05 AM EST Oxygen Saturation - - Inhaled Oxygen Concentration - - Weight - - Height - - Body Mass Index - - documented in this encounter Progress Notes Price Quezada MD - 06/28/2017 10:30 AM EST Infectious Diseases Follow-Up Note HPI: Mr. Urena is a 61y/o M who has recently been admitted four times (04/27/16-05/04/17, 05/10/17-05/16/17, 05/24/17-05/26/17, and 05/31/17-06/01/17) for management of left retroperitoneal and left paracolicgutter abscesses, along with a more recent admission (06/07/17-06/11/17) for management of a left-sided empyema. For the retroperitoneal abscess abutting the left iliopsoas muscle, he underwent CT guided drain placement on 04/27/18, with the 450cc of purulent material aspirated growing E. coli. For the left paracolic gutter abscess, he underwent CT guided drain placement on 05/10/17, with the purulent culture notgrowing any organisms. He has also required a number of drain revision procedures, followed by laparoscopy and abscess drainage on 05/31/17 (purulent, but again culture negative -- aerobic and anearobic). When I last saw him in clinic on 06/06/17, he seemed slightly improved on history and exam, but his labs continued to show a leukocytosis (WBC 11.4) and an elevated CRP (152.1). Based on these labs, and to assess the interval change, a CT of the abdomen and pelvis was performed on 06/07/17. This CT interestingly showed complete resolution of the left paracolic gutter and retroperitoneal abscesses, but it identified a new loculated left pleural effusion containing air concerning for empyema. Follow-up Chest CT showed collapse of the majority of the left lower lob with possible airspace consolidation, concerning for infection. Based on this, Mr. Urena was admitted and taken to the OR on 06/08/17 for VATS with decortication. The findings were: Normal endobronchial anatomy with some evid ence of extrinsic compression of the left lower lobe subsegmental bronchi. On VATS there were extensive adhesions surround the entire left lower lobe and parts of the left upper lobe. These were taken down. There was extensive loculated fluid and gelatinous material present. There was questionable purulent material present and significant pleural thickening, both on the lung and the posterior chest wall. He was initially covered empirically with vancomycin plus piperacillin- tazobactam. This was changed to ceftriaxone plus metronidazole on 06/09/17, and he was eventually discharged on ciprofloxacin plus metronidazole x2 weeks after all cultures from 06/08/17 remained negative. The pathology showed: Acute suppurative fibrinous pleuritis with no mention of stains for microorganisms, and cytology was negative for malignancy. He now returns to clinic, having finished his 2 weeks of ciprofloxacin plus metronidazole on 06/26/17. He currently denies any fever or chills, but he does report having a recurrence of night sweats in the past two nights since stopping antibiotics. These night sweats had improved on the antibiotics. In terms of other symptoms, he reports that he has been slowly regaining weight after a 50 lbs weight loss at the beginning of his illness (Trend: 380 lbs -> 330 lbs -> 343 lbs). He has no significant cough, denies any pleuritic CP, and denies any SOB. He has minor pain at the site where the chest tubes had been inserted. He also continues to have a single drain in place in his left flank. He thinks that this has dislodged slightly, but he otherwise has no complaints about the drain, other than the fact that he cannot return to work until after the drain has been removed. ROS: He states that his stool was black on the antibiotic, but he denies hematochezia/melena. Off of the antibiotics, his stool color has returned to brown. He has had loose stool for 40 years with no recent change in caliber. He currently denies any nausea, vomiting, or abdominal pain. He reports chronic nocturia (every 2hrs) with polydipsia. He has had chronic back pain for 40 years. He denies any rash or joint aches. The remainder of his ROS was negative, except as noted in the HPI. I have reviewed the PMHx, Medications, Allergies, and SHx/FHx in the EMR. Now off of antibiotics. Noallergies to any antibiotics. When asked about a colonoscopy, he states: Never had one, not interested in one. When asked why, he states that colon cancer does not run in his family. He has some cousins who have had breast and brains tumors. He quit smoking 35 years ago. His classic diet has been meat and potatoes, but his daughter has been serving him mostly pasta. Physical Exam: Most Recent Vitals: 06/28/17 1005 BP: (!) 148/98 Pulse: (!) 109 Resp: 20 Temp: 36.7 ??C (98 ??F) Gen - Ambulatory, A&Ox3, NAD. HEENT - Anicteric, MMM, clear OP. CV - Tachycardic but regular, no murmur. Resp - CTAB. Chest - Left chest tube incisions C/D/I. Abd - Obese, NT/ND, NABS, no HSM. LATOYA drain in left flank with mostly serous output, although fibrinous exudate present in the tubing. Ext - Chronic LE edema. Skin - No rash. Labs: WBC 9.4 (62.2% PMNs, no significant bandemia), Hct 35.5 (up from 31.8 on 06/10/17, MCV 90.6 -- never microcytic in eDH labs), Plts 285 (down from 452 on 06/09/17) CRP 3.2mg/L (down from 152.1mg/L on 06/06/17) Iron 79, TIBC 200, Iron Saturation 40% Ferritin 543 U/A: Spec grav 1.014, negative protein, negative glucose, negative blood Assessment: 61y/o M who has recently been admitted four times (04/27/16-05/04/17, 05/10/17-05/16/17, 05/24/17-05/26/17, and 05/31/17-06/01/17) for management of left retroperitoneal and left paracolic gutter abscesses, along with a more recent admission (06/07/17-06/11/17) for management of a left-sided empyema. His only positive microbiology is an E. coli which grew from the retroperitoneal abscess on 04/27/18. He eventually required laparoscopy for drainage of the retroperitoneal abscess on 05/31/17 and VATS with decortication on 06/08/17 for the empyema that was felt to be secondary to the subdiaphragmatic abscess. The original source for the retroperitoneal abscess has not been clear, although there is concern for spread from an adjacent structure. Today, his WBC count is normal, and his CRP has nicely declined down to 3.2. Following his visit to ID clinic, Dr. Mcgee from General Surgery removed the remaining drain. It is interesting that he continues to have night sweats, although his significant weight loss seemsto have stabilized. I worry about a possible malignancy, but Mr. Urena is not interested in a colonoscopy at this time. In looking at his labs, he does not have an iron deficiency anemia, nor does he have any hematuria or proteinuria. In addition to colon cancer, I considered the possibility of renal cell carcinoma (given the proximity of the abscess to the left kidney). I also considered multiplemyeloma given some baseline renal dysfunction, a normocytic anemia, and the unexplained L2/L3 findings on spine CT in 04/2017 (see my note from 06/06/17). Going against multiple myeloma is the absence of hypercalcemia. I raise this diagnosis, though, given the increased risk of infection in patients withmultiple myeloma. Plan: 1. Given the absence of a leukocytosis or an elevated CRP, I agree with no further antibiotics at this time. 2. We discussed a colonoscopy, particularly given his recent black stool, but he does not want to undergo this procedure. I checked for iron deficiency which was not present. I considered checking a CEA, but this is not recommended as a screening test given the low sensitivity (and issues with specificity). 3. Mr. Urena should follow-up with his PCP re: a repeat Cr (last 2.43 on 06/11/17, up from a low of 0.92 on 05/27/17, although a lot of recent fluctuation). I will mention to Mr. Urena and his PCP that they might also consider checking an SPEP. 4. Mr. Urena can follow-up in ID clinic as needed. We discussed signs and symptoms of recurrent infection. Price Quezada MD documented in this encounter Plan of Treatment Not on filedocumented as of this encounter Procedures Procedure Name Priority Date/Time Associated Diagnosis Comme nts CRP, ACUTE Routine 06/28/2017 11:05 Abscess, Results for this INFLAMMATION AM EST retroperitoneal procedure are in Pleural empyema the results Night sweats section. HEMOGRAM Routine 06/28/2017 11:05 Abscess, Results for this AM EST retroperitoneal procedure are in Pleural empyema the results Night sweats section. DIFFERENTIAL, Routine 06/28/2017 11:05 Abscess, Results fo r this AUTOMATED AM EST retroperitoneal procedure are in Pleural empyema the results Night sweats section. IRON AND TIBC Routine 06/28/2017 11:05 Anemia, unspecified Res ults for this AM EST type procedure are i n the results section. CBC (WITH DIFF) Routine 06/28/2017 11:05 Abscess, AM EST retroperitoneal Pleural empyema Night sweats FERRITIN Routine 06/28/2017 11:05 Anemia, unspecified Resu lts for this AM EST type procedure are i n the results section. URINALYSIS WITHOUT Routine 06/28/2017 11:03 Nocturia more than Results for this MICROSCOPIC AM EST twice per night procedure ar e in the results section. documented in this encounter Results Differential, Automated (06/28/2017 11:05 AM EST) P athologist Signature Neutrophils % 62.2 % [facility] Neutr Abs (ANC) 5.81 1.70 - [facility] 6.[address] [facility] x10(3)/[facility] LABORATORY Lymphocytes % 27.1 % [facility] Lymphocytes Abs 2.5 0.9 - 3.2 [facility] x10(3)/[facility] LABORATORY Monocytes % 6.5 % [facility] Monocyte Abs 0.6 0.3 - 0.9 [facility] x10(3)/[facility] LABORATORY Eosinophils % 3.4 % [facility] Eosinophils Abs 0.3 0.0 - 0.4 [facility] x10(3)/[facility] LABORATORY Basophils % 0.5 % [facility] Basophils Abs 0.0 0.0 - 0.1 [facility] x10(3)/[facility] LABORATORY Immature Gran % 0.30 % [facility] Comment: Immature granulocytes(IG's)percentage an d absolute count will include metamyelocytes, myelocytes, and promyelo cytes. Blood smears from CBCs yielding IG's will be scanned manually for conceva dananna marie. If this scan disagrees with the automated IG or if promyelocytes are not ed, a manual differential will be performed. Mehnaz Gran Abs 0.03 0.00 - 0.04 x10(3)/[facility] Specimen Anatomical Collection Method Collection Time Receive d Time (Source) Location / / Volume Laterality Blood specimen 06/28/2017 11:05 8 (specimen) AM EST 11:09 AM EST Resulting Agency Comment Spec In Lab Price Quezada MD HEMATOLOGY ORDERABLES Performing Organization Address City/State/[place] [address] (ABNORMAL) Hemogram (06/28/2017 11:05 AM EST) Analysis Performed At Patho logist Time Signature WBC 9.4 4.0 - 9.5 [facility] x10(3)/[facility] LABORATORY RBC 3.92 (L) 4.58 - [facility] [address] [facility] x10(6)/[facility] LABORATORY Hemoglobin 11.6 (L) 13.7 - [facility] 16.5 gm/dL [facility] Hematocrit 35.5 (L) 40.5 - [facility] 48.5 % [facility] MCV 90.6 82.9 - [facility] 93.1 [facility] LABOR[facility]ORY MCH 29.6 27.5 - [facility] 32.1 pg [facility] MCHC 32.7 32.0 - [facility] 35.7 gm/dL [facility] Platelets 285 145 - 357 [facility] x10(3)/[facility] LABORATORY RDWSD 58.0 (H) 36.0 - [facility] 45.0 [facility]ORY RDWCV 17.4 (H) 11.4 - [facility] RAJ[facility] 13.8 % [facility] MPV 9.1 7.6 - 12.9 [facility] LABORATORY nRBC % Auto 0.0 % [facility] nRBC Abs Auto 0.000 0.000 - [place] [address] [facility] x10(3)/[facility] LABORATORY Specimen Anatomical Collection Method Collection Time Receive d Time (Source) Location / / Volume Laterality Blood specimen 06/28/2017 11:05 8 (specimen) AM EST 11:09 AM EST Resulting Agency Comment Spec In Lab Price Quezada MD HEMATOLOGY ORDERABLES Performing Organization Address City/State/[place] [address] (ABNORMAL) Ferritin (06/28/2017 11:05 AM EST) P athologist Signature Ferritin 543 (H) 30 - 400 [facility] ng/mL [facility] Comment: Pediatric reference ranges not verified at [facility], interpret with caution. Reference ranges for females greater anastacio n 50 years of age approach values for men, i.e., 30-400 ng/mL. Specimen Anatomical Collection Method Collection Time Receive d Time (Source) Location / / Volume Laterality Blood specimen 06/28/2017 11:05 8 (specimen) AM EST 11:09 AM EST Resulting Agency Comment Spec In Lab Price Quezada MD CHEMISTRY ORDERABLES Performing Organization Address City/State/ZIP Code Phon e Number [address] (ABNORMAL) Iron and TIBC (06/28/2017 11:05 AM EST) Analysis Performed At Patho logist Time Signature Iron 79 45 - 160 [facility] mcg/dL [facility] TIBC 200 (L) 250 - 450 [facility] mcg/dL [facility] Iron Saturation 40 20 - 50 % [facility] Specimen Anatomical Collection Method Collection Time Receive d Time (Source) Location / / Volume Laterality Blood specimen 06/28/2017 11:05 8 (specimen) AM EST 11:09 AM EST Resulting Agency Comment Spec In Lab Price Quezada MD CHEMISTRY ORDERABLES Performing Organization Address City/State/[place] [address] CRP, acute inflammation (06/28/2017 11:05 AM EST) P athologist Signature CRP 3.2 <=4.9 mg/L [facility] Specimen Anatomical Collection Method Collection Time Receive d Time (Source) Location / / Volume Laterality Blood specimen 06/28/2017 11:05 8 (specimen) AM EST 11:09 AM EST Resulting Agency Comment Spec In Lab Price Quezada MD CHEMISTRY ORDERABLES Performing Organization Address City/[facility]/[place] [address] Urinalysis without microscopic (06/28/2017 11:03 AM EST) Patholo gist Method Time Signature Glucose UA Negative Negative [facility] mg/dL [facility] Protein UA Negative Negative [facility] mg/dL [facility] Bilirubin UA Negative Negative [facility] mg/dL [facility] Comment: Clinical correlation required for positi ve Urine Bilirubin results as false positive may occur with some drugs and d rug related products. If a false positive is suspected a serum total bili falcon should be considered if clinically indicated. Urobilinogen UA Normal Normal mg/dL [facility] pH UA 7.0 5.0 - 8.0 [facility] Blood UA Negative Negative mg/dL [facility] Ketones UA Negative Negative mg/dL [facility] Nitrite UA Negative Negative [facility] Leukocytes UA Negative Negative [facility] Appearance UA Clear Clear [facility] Spec [place] UA 1.014 1.002 - 1.030 [facility] Color UA Yellow Yellow [facility] Specimen Anatomical Collection Method Collection Time Receive d Time (Source) Location / / Volume Laterality Urine specimen 06/28/2017 11:03 8 (specimen) AM EST 11:07 AM EST Resulting Agency Comment Spec In Lab Price Quezada MD URINE ORDERABLES Performing Organization Address City/[facility]/[place] [address] documented in this encounter Visit Diagnoses Diagnosis Abscess, retroperitoneal Other retroperitoneal abscess Pleural empyema Empyema without mention of fistula Night sweats Generalized hyperhidrosis Anemia, unspecified type Nocturia more than twice per night documented in this encounter Care Teams Audio Video Tech Relationship Specialty Start Date End Date Odalys Laird MD PCP - General Internal Medicine 04/27/[address] [place] [address] documented as of this encounter
--- OUTSIDE RECORDS SUMMARY | 2022-01-19 01:22 | XMS_ITS | Encounter Summary ---
:1955 Author Organization [facility] [place] [address] Care Team Providers Name Role Phone Odalys Laird MD Primary Care Provider Reason for Visit Reason Comments Follow Up Surgery Encounter Details Date Type Department Care Team Description 06/28/2017 Office Visit Thoracic Surgery at [facility] Haroon Arcos, Pleural empyema [facility] [place] [phone] [facility] [phone] Thoracic Surgery [place] [phone] (Wo rk) Social History Tobacco Use Types Packs/Day Years Used Date Former Smoker Cigarettes 4 22 04/28/1968 - 1 Smokeless Tobacco: Former User Chew Q uit: 04/28/2017 Comments: haven't used chew in a few wee pr Alcohol Use Standard Drinks/Week Comments Yes 0 [...] Sign Reading Time Taken Comments Blood Pressure 150/92 06/28/2017 9:03 AM EST Pulse 108 06/28/2017 9:03 AM EST Temperature 35.7 ??C (96.3 ??F) 06/28/2017 9:03 AM EST Respiratory Rate 18 06/28/2017 9:03 AM EST Oxygen Saturation 99% 06/28/2017 9:03 AM EST Inhaled Oxygen Concentration - - Weight 155.6 kg (343 lb) 06/28/2017 9:03 AM EST Height 175 cm (5' 8.9) 06/28/2017 9:03 AM EST Body Mass Index 50.8 06/28/2017 9:03 AM EST documented in this encounter Patient Instructions Patient InstructionsMichell Henson RN - 06/28/2017 9:45 AM EST Thank you for visiting Dr. Arcos in clinic today 06/28/17. Please call Thoracic Surgery at with any questions or concerns. documented in this encounter Progress Notes Haroon Arcos MD - 06/28/2017 9:45 AM EST Thoracic Surgery Attending Outpatient Consultation Note Haroon Arcos MD [place] [phone] Today I saw Mr. Daniel Urena in follow-up from his left VATS partial decortication for an empyema related to a subdiaphragmatic abscess on 06/08/17. He was discharged after an uneventful postoperative course on POD 3. He is breathing comfortably and denies fevers. He was discharged on 2 weeks of cipro and flagyl per ID, as he had been seen by them and Dr. Mcgee for his previous abscess. He is off allpain medication and would like to go back to work. On physical examination today, his height is 175 cm (5' 8.9) and weight is 155.6 kg (343 lb) (abnormal). His temporal temperature is 35.7 ??C (96.3 ??F). His blood pressure is 150/92 (abnormal) and his pulse is 108 (abnormal). His respiration is 18 and oxygen saturation is 99%. Body mass index is 50.8 kg/(m^2). In general, he is in no acute distress. His pupils are reactive. His lungs are clear to auscultation bilaterally. His heart has a regular rate with no murmurs. His incisions are healing wellwith no erythema or drainage. His abdomen is soft and nontender. His extremities are warm with no edema. Neurologically, he is grossly intact. He still has a LATOYA drain in the abdomen that is putting outscan serous fluid Today's chest x-ray shows postoperative changes with no acute infiltrates, masses nor effusion. In summary, Mr. Daniel Urena has made a good early recovery from his VATS decortication. From my standpoint he is doing well and may return to his normal activities. He is seeing Dr. Mcgee today to discuss removal of the LATOYA drain and Dr. Quezada to discuss his antibiotics. He may return to see me in the thoracic surgery clinic on an as needed basis. He knows to call my office if questions or concerns arise. Haroon Arcos MD 06/28/2017 documented in this encounter Plan of Treatment Not on filedocumented as of this encounter Visit Diagnoses Diagnosis Pleural empyema Empyema without mention of fistula documented in this encounter Care Teams Scenic Arts Supervisor Relationship Specialty Start Date End Date Odalys Laird MD PCP - General Internal Medicine 04/27/[address] [place] [address] [address] [place] [address] documented as of this encounter
--- OUTSIDE RECORDS SUMMARY | 2022-01-19 01:23 | XMS_ITS | Encounter Summary ---
:1955 Author Organization [facility] [place] [address] Care Team Providers Name Role Phone Odalys Laird MD Primary Care Provider Reason for Referral Diagnostic Test (Routine) - Closed Specialty Diagnoses / Procedures Referred By Contact Refer red To Contact Radiology Diagnoses Intra-abdominal abscess Price Juárez MD [facility] Rad Ct Scan Procedures CT Abdomen & Pelvis w Contrast [facility] [place] [address] [place] [address] Referral ID Status Reason Start Date Expiration Date Visits V isits Requested Authorized [id number] Closed Specialty 06/03/2017 09/01/2017 1 1 Service Requested Reason for Visit Auth/Cert Specialty Diagnoses / Procedures Referred By Contact Refer red To Contact Diagnoses Intra-abdominal abscess INTRA-ABDOMINAL ABSCESS Procedures PRO LAP, DIAGNOSTIC ABDOMEN PRO LAP, ABD/PERIT/OMENTUM, UNLIST LAPAROSCOPY, DIAGNOSTIC, ABDOMEN (WRVU 5.14) LAPAROSCOPY, DRAINAGE ABD ABSCESS (WRVU *) Referral ID Status Reason Start Date Expiration Date Visits Requ ested Visits Authorized [id number] 1 1 Encounter Details Date Type Department Care Team Description 05/31/2017 - Hospital Encounter 4 Gilson Christensen, [facility]- [facility] [address] [place] [id number] [phone] Social History Tobacco Use Types Packs/Day Years [...] Sign Reading Time Taken Comments Blood Pressure 115/74 06/01/2017 11:45 AM EST Pulse 89 05/31/2017 5:00 PM EST Temperature 36.9 ??C (98.4 ??F) 06/01/2017 11:45 AM EST Respiratory Rate 18 06/01/2017 11:45 AM EST Oxygen Saturation 93% 06/01/2017 11:45 AM EST Inhaled Oxygen Concentration - - Weight - - Height - - Body Mass Index - - documented in this encounter Discharge Summaries Vangie Peraza MD - 06/01/2017 4:44 PM EST Images from the original note were not included. General Surgery Inpatient - Discharge Summary Patient Name: Daniel Urena Patient Age: 61 y.o. Birthdate: 1955 Admit date: 05/31/2017 Discharge date: 06/01/2017 Admitting Physician: Gilson Mcgee MD Primary Diagnosis: <principal problem not specified> Secondary Diagnosis: Active Hospital Problems Diagnosis ??? Retroperitoneal abscess Resolved Hospital Problems Diagnosis Date Resolved No resolved problems to display. Active Non-Hospital Problems Diagnosis ??? Abscess ??? Intra-abdominal abscess HPI: Taken from 05/24 Clinic Appointment Daniel Urena is a 61-year-old male with history of morbid obesity and hypertension who was most recently admitted on May 10, 2017 for persistent retroperitoneal and intra-abdominal abscesses of unknown origin. He was discharged on May 16, 2017 with both anterior and posterior Kevin-Frank drains placed by interventional radiology. He was instructed to record the quality and amount of outputfrom these drains and to continue his prescribed course of ciprofloxacin and Flagyl as an outpatient. He presented to clinic today after undergoing a CT scan of the abdomen and pelvis to assess these known abscesses. On review with Dr. Mcgee this afternoon we noted an interval increase in the left retroperitoneal and left paracolic gutter abscesses. There was also a mild increase in the left psoas abscess that is in continuity with a left retroperitoneal abscess. The patient states that on Saturday, May 20, 2017 his anterior LATOYA drain stopped putting out drainage despite him flushing it with 10 ccof saline. Since Saturday he has also noticed that his posterior LATOYA drain also dropped off from 150 cca day to about 25 cc a day after flushing. Since Saturday the patient reports increased left lower quadrant pressure and fullness similar to what he experienced before with these abscesses prior to drainage. He denies fevers, chills, nausea, vomiting, chest pain, shortness of breath, change in bowel movement, difficulty urinating, or abdominal pain. He does endorse back pain that is his baseline. Operations/Major Procedures: Operations: 05/31/2017 Surgeon(s) and Role: * Gilson Mcgee MD - Primary * Price Juárez MD - Resident-Contact Centre Supervisor * Nunu Kincaid MD - Resident-Contact Centre Supervisor: Procedure(s): LAPAROSCOPY, DRAINAGE ABD ABSCESS (WRVU *) LAPAROSCOPY, TUMOR EXCISION, RETROPERITONEAL (WRVU *) Operative Findings: 1. Retroperitoneal abscess pocket entered via cut down along IR drain, approximately 200 cc drained, cultures sent; 2. Abscess pocket explored using laparoscopy, well granulated connection visualized tracking along the lateral side-wall; 3. 19 Fr Ameya drain x2 placed into the abscess pocket (one down into the track and one into the body of the cavity) Hospital Course: Daniel Urena was taken to the operating room where the above procedures were performed. He tolerated the operation well and without complication. He was admitted post-operatively for clinical monitoring and further management. The patient's hospital course was uncomplicated and he was deemed stable for discharge on post-operative day 1. Prior to discharge he was evaluated by physical therapy who recommended discharge home. He will follow up in clinic in one week with a CT of the abdomen and pelvis with contrast. He will measure his drain output at home and keep a log of this. Hewill continue his ciprofloxacin and flagyl at home. Important Studies and Lab Data: See below. Pathology: None Microbiology: Microbiology Results (Last 30 days) Procedure Component Value Units Date/Time Abscess/Wound Aspirate Culture [[id number]] Collected: 05/31/17 1337 Lab Status: Preliminary result Specimen: Abscess from Abdomen Updated: 06/01/17 0807 Abscess/Wound Aspirate Culture No growth to date. Gram Stain -- Many White Blood Cells seen No microorganisms seen. Body Fluid Culture, Aerobic & Anaerobic Ascites Fluid [[id number]] Collected: 05/25/17 1447 Lab Status: Final result Specimen: Ascites Fluid Updated: 05/29/17 1326 Body Fluid Culture, Aerobic [[id number]] (Abnormal) Collected: 05/25/17 1447 Lab Status: Final result Specimen: Ascites Fluid Updated: 05/29/17 1020 Body Fluid Culture Rare Coagulase negative Staphylococcus species (A) Anaerobic Culture [[id number]] Collected: 05/25/17 1447 Lab Status: Final result Specimen: Ascites Fluid Updated: 05/29/17 1326 Anaerobic Culture No anaerobic organisms isolated Body Fluid Culture, Aerobic & Anaerobic Abdominal Fluid [[id number]] Collected: 05/10/17 1630 Lab Status: Final result Specimen: Abdominal Fluid Updated: 05/14/17 1357 Body Fluid Culture, Aerobic [[id number]] Collected: 05/10/17 1630 Lab Status: Final result Specimen: Abdominal Fluid Updated: 05/14/17 1143 Body Fluid Culture No growth Gram Stain -- Many White Blood Cells seen No microorganisms seen. Anaerobic Culture [[id number]] Collected: 05/10/17 1630 Lab Status: Final result Specimen: Abdominal Fluid Updated: 05/14/17 1357 Anaerobic Culture No anaerobic organisms isolated Labs: Lab Results Component Value Date Sodium 136 06/01/2017 Potassium 4.3 06/01/2017 Chloride 99 06/01/2017 CO2 23 06/01/2017 BUN 9 (L) 06/01/2017 Creatinine 1.19 06/01/2017 Glucose Lvl 124 06/01/2017 CBC Lab Results Component Value Date WBC 11.5 (H) 06/01/2017 Hemoglobin 10.6 (L) 06/01/2017 Hematocrit 32.2 (L) 06/01/2017 Platelets 255 06/01/2017 Pending Lab Data at Discharge: None Studies: CT Abdomen/Pelvis with Contrast - Pending Discharge Exam: Last value Range last 12 hrs Temperature Temp: 36.9 ??C (98.4 ??F) Temp: [36.9 ??C (98.4 ??F)-37.9 ??C (100.2 ??F)] Heart Rate Heart Rate: 89 Heart Rate: -- Blood Pressure BP: 119/78 BP: (119-146)/(78-87) Respiratory Rate Resp: 18 Resp: [16-18] SpO2 SpO2: 95 % SpO2: [93 %-96 %] I/Os: I/O last 3 completed shifts: In: 3534 [P.O.:1160; I.V.:2374] Out: 1000 [Urine:700; Other:300] I/O this shift: In: 480 [P.O.:480] Out: 40 [Other:40] Gen: NAD, alert & oriented x3 Pulm: CTAB, no crackles/wheezes Card: RRR, no m/r/g Abd: Non-distended, soft, appropriately tender. Wound: incision clean, dry, intact, no purulent drainage Ext: no edema, 2+ peripheral pulses Discharge Plans: Discharge to: Home VNA: Already setup Discharge Conditions/Prognosis: Stable Discharge Medications: The following medications have been prescribed for you. If you notice any adverse reactions to your medications, please contact your primary care physician immediately or go to the nearest Emergency Department. Your Medications New Medications Dose Details traMADol 50 mg Tab Commonly known as: ULTRAM Take 1 tablet by mouth every 6 hours as needed for Pain. 50 mg Quantity: 10 tablet Refills: 0 Continued medications, unchanged Dose Details ciprofloxacin 500 mg Tab Commonly known as: CIPRO Take 1 tablet by mouth 2 times daily. 500 mg Quantity: 20 tablet Refills: 0 ibuprofen 600 mg Tab Commonly known as: ADVIL;MOTRIN Take 1 tablet by mouth every 6 hours as needed for Pain (for MILD pain (1-3)). 600 mg Quantity: 30 tablet Refills: 12 metroNIDAZOLE 500 mg Tab Commonly known as: FLAGYL Take 1 tablet by mouth 3 times daily. 500 mg Quantity: 20 tablet Refills: 0 Updated Allergies/ADRs: Allergies Allergen Reactions ??? Mold Other (See Comments) Drainage in his eyes, sinuses congest. ??? Tylenol [Acetaminophen] Causes acid reflux Scheduled Appointments: Future Appointments Date Time Provider Department Center 06/06/2017 4:00 PM Price Quezada MD [facility] 07/01/2017 12:00 PM Gilson Mcgee MD [facility] Outpatient Services/Studies: CT Abdomen & Pelvis w Contrast Standing Status: Future Standing Exp. Date: 12/07/17 Question Response Notes Where will study be performed? [facility] [120] Reason for exam and clinical history: s/p retroperitoneal abscess debridement on 05/31; assess abscessstatus and drain success Instructions Given to Patient at Discharge:. An After Visit Summary was printed and given to the patient. Patient Instructions [facility] Department of General Surgery Discharge Instructions CALL YOUR PHYSICIAN'S OFFICE IF: ??? You have a fever greater than 101 degrees Farenheit (38.3C) within one month of your surgery. ? ? You have diarrhea or vomiting for >24 hours, stop having bowel movements and/or passing flatus, have pain with urination. ??? You have worsening pain, not controlled with your pain medication. ??? You develop redness, swelling, or new drainage from your wound. Medications: [x] Pain Control [x] Non-narcotic pain medication - We recommend alternating with tylenol 650mg and ibuprofen 400-600mg every 6 hours (ie; tylenol at12pm, ibuprofen 3pm, tylenol 6pm, ibuprofen 9pm). - Do not take more than 4,000mg (4g) of tylenol in 24hours. [x] Narcotic pain medication - You have been prescribed 10 tablets of Tramadol. This is a narcotic medication that has several side effects/warnings: 1. Constipation: Narcotics can cause severe constipation. Please take BOTH a stool softener and pro-motility/laxative agent whenever taking narcotics, unless otherwise advised. These are over the counter. (Stool Softeners: Colace, Surfak. Laxatives/Stimulants: Miralax, Milk of Magnesia, Senna, Bisacodyl). 2. Altered mental status: Narcotics can make you sleepy and have delayed reactions. Therefore, do not drive or operate any heavy machinery while taking narcotics. 3. Addictive: Narcotics are addictive. Please take as prescribed and wean down/decrease your dose as soon as you can tolerate. 4. Restricted: Narcotics are highly regulated. If you are running out of your prescription and feelyou will need more, plan ahead and call your Physician as these cannot be filled electronically or at night/over the weekend. Again, as your pain decreases, reduce your use of these medications. You donot need to use all of the pills provided. [x] Antibiotics - You have been prescribed ciprofloxacin and flagyl [x] Other Medication(s) - The remainder of your medications are listed in the first section of the After Visit Summary. Driving Restrictions: - No driving if you are too sore from surgery to enter or exit your vehicle comfortably, or if you are too sore to easily check your blind spot. No driving while using narcotic pain medications. Shower: - It is ok to shower if you adequately cover your drain sites. Pat incision dry with a clean, dry towel. Do not submerge the wound under water (no swimming or soaking) for at least 6 weeks, or until approved by your surgeon. Diet: [x] You have been cleared to resume your regular diet - We recommend eating a regular healthy diet (ie; fresh fruits, vegetables and fiber-containing foods will assist in wound healing,) Activity: - It is normal to feel tired after surgery/hospitalization. Be as active as tolerated as this will improve recovery and prevent blood clots. - You should avoid any heavy lifting for 4 weeks after surgery. A galloon of milk is a good estimate of the maximum you should be lifting while your wounds heal. -We recommend taking several slow, short walks each day for the first two weeks, and gradually increase your distance. We recommend at least 4 times a day. Wound/Incision Care: Closure: Your skin incision(s) is closed with: [] Glue - There are sutures below the skin and the glue is the dressing. There is nothing to removeand the discoloration will go away in time. [x] [place] - [place] are typically removed 7-14 days after surgery. You should have a follow-up visit with the clinic nurses to have your sutures removed. [] Sutures - If your sutures are visible, they will need to be removed at a follow up appointment. If they are not visible, then they are underneath the skin and will dissolve. You may also have Steristrips covering your skin, which are strips of white tape that should fall off after ~10 days (if not, please remove manually). You may shower with them on. Infection: Observe for changes and alert the clinic if new/worsening redness or drainage. Things to avoid: Do not use creams, oils, or ointments on the wound. Keep wound open to air if it is not draining. Lines/Drains/Tubes: [x] You are being discharged with a 3 LATOYA drains Please see the multidisciplinary instructions below for details Who to call? If you have concerns or questions: - During the day, it is best to call the General Surgery Clinic to speak with the Surgery nurses. The number is [phone]. - During the night or weekends call the [facility] chain machine operator at [phone] and ask to speak to the surgery resident lion trainer for general surgery. Please note: Your surgeon may not be Postal Mail Carrier, especially during the night or on weekends, so be ready to describe yourself and your surgery when you call. Follow up appointments: Future Appointments Date Time Provider Department Center 06/06/2017 4:00 PM Price Quezada MD [facility] 07/01/2017 12:00 PM Gilson Mcgee MD [facility] [x] A request for a follow-up appointment has been made and you should receive information via phone/mail in the next week. If you do not hear anything, please call the clinic at [phone] to confirm or reschedule. - We will call you with your appointment time early next week. We hope to schedule you an appointment in the office on June 07 2017. You will need to obtain a CT of the abdomen and pelvis prior tothis appointment. If you need a prior authorization, please call the General Surgery Clinic nurses [phone] for prior authorizations assistance General Instructions LATOYA DRAIN CARE INSTRUCTIONS Drains help to keep fluid from collecting by removing the extra blood and fluid from under the skin.A drain is temporary. It stays in place until the drainage has slowed down or stopped. Your doctor or nurse will decide when each drain should be removed: This is usually after each drain has 30cc or less in 24 hours for 2 days in a row. When this happens, you should call the Clinic to schedule an appointment with the nurses to have it/them removed, or have the Visiting Nurses remove this when they arrive for the day. This is usually not painful and only takes a few seconds. How do I care for the drains at home? Pin your drains to your clothing by using a safety pin throughthe plastic loop on the top of the bulb. If the drain is not attached to your clothing, it may pull out from under your skin. Also, a drain usually feels more comfortable when it???s attached. To care for the drain at home, you will have to empty the drain, ???strip?? the drain tubing, and change thedressing if applicable. * See the following pages for instructions on how to do this. What problems may I have with my drain? The bulb is not compressed- The bulb may not be squeezed tightly enough, the plug may not be closed securely, or the tube has slipped out a bit and is leaking. Follow the instructions on how to empty the drain. If the bulb remains expanded, then notify your doctor or nurse during business hours. ??? No drainage or sudden decrease in amount of drainage- This is usually due to clots in the drain.Follow the instructions on how to strip the drain tubing. ??? The tube accidentally falls out- If this happens, place a dry gauze dressing over the drain siteand notify your doctor or nurse during business hours. ??? Increased redness, swelling, or heat around the tube insertion site- This may be a sign of infection. Take your temperature: if it is higher than 101F or 38.8C, call your doctor or nurse immediately. Otherwise, notify your doctor or nurse during business hours and keep the dressing clean and dry. Post-Surgical Drain Care After surgery, you will have one or two drains, called a Kevin-Frank (LATOYA) drain, placed near the incision. This device collects fluid, under suction, from your surgical area. The drain promotes healing and recovery, and reduces the chance of infection. The drain will be in place until the drainage slows enough for your body to reabsorb fluid on its own. While you are hospitalized the nursing staff will care for the drain and teach you to continue to do so at home. How to Empty Your LATOYA Drain Note: Wash your hands thoroughly before emptying your drain(s). 1. Have the plastic measuring cup from the hospital ready to collect and measure the drainage. Please measure the output at the same two times every 24 hours and record the amount. 2. Unpin the drain from your clothing. 3. Open the top of the drain. Turn the drain upside down and squeeze the contents of the bulb into the measuring cup. Be sure to empty the bulb as completely as possible. Flush the contents in the toilet. 4. Use the drain output log chart to record the amount of drainage twice a day or any time the bulb is full. Record the total for 24 hours for each drain you have. 5. If you have more than one drain, remember to record the drainage from each drain separately. 6. To prevent infection, do not let the stopper or top of the bottle touch the measuring cup or any other surface. 7. Use one hand to squeeze all of the air from the drain. With the drain still squeezed, use your other hand to replace the top. This creates the suction necessary to remove the fluids from your body. 8. Pin the drain back on your clothing to avoid pulling it out accidently. 9. Wash your hands again. Remember to wash your hands before and after the procedure to reduce the risk of infection. Stripping the Tube Often products of healing will not flow out of the narrow tube and prevent proper draining. If you do not have drainage, then: ??? Hold the tube near where it is inserted in to the skin with your one hand. ??? Use the other hand to hold a pencil and gently squeeze the tubing with the pencil while moving it down toward the drain away from your skin. This forces the more sold material into the bulb for better drainage. ??? Repeat as necessary to start the draining again. Removal of the Tube ??? The tube may be removed once a single tube output is less than 30cc (1 oz.) in 24 hours. ??? Please call the office if the output becomes thicker or has a bad odor. Kevin-Frank Drainage Record NAME: Date of Surgery: Date: Time: If more than one drain, which one: Drainage Amount (per drain) Total Amount (per drain; in 24 hours) Follow-up Recommendations for Providers: Medication changes: None, continue current ABX plan Diet changes: Healthy diet CC: Odalys Laird MD Signed: Price Juárez MD 06/01/2017 8:23 AM documented in this encounter Discharge Instructions Discharge InstructionsPrice Juárez MD - 06/01/2017 8:13 AM EST Images from the original note were not included. LATOYA DRAIN CARE INSTRUCTIONS Drains help to keep fluid from collecting by removing the extra blood and fluid from under the skin.A drain is temporary. It stays in place until the drainage has slowed down or stopped. Your doctor or nurse will decide when each drain should be removed: This is usually after each drain has 30cc or less in 24 hours for 2 days in a row. When this happens, you should call the Clinic to schedule an appointment with the nurses to have it/them removed, or have the Visiting Nurses remove this when they arrive for the day. This is usually not painful and only takes a few seconds. How do I care for the drains at home? Pin your drains to your clothing by using a safety pin throughthe plastic loop on the top of the bulb. If the drain is not attached to your clothing, it may pull out from under your skin. Also, a drain usually feels more comfortable when it???s attached. To care for the drain at home, you will have to empty the drain, ???strip?? the drain tubing, and change thedressing if applicable. * See the following pages for instructions on how to do this. What problems may I have with my drain? The bulb is not compressed- The bulb may not be squeezed tightly enough, the plug may not be closed securely, or the tube has slipped out a bit and is leaking. Follow the instructions on how to empty the drain. If the bulb remains expanded, then notify your doctor or nurse during business hours. ??? No drainage or sudden decrease in amount of drainage- This is usually due to clots in the drain.Follow the instructions on how to strip the drain tubing. ??? The tube accidentally falls out- If this happens, place a dry gauze dressing over the drain siteand notify your doctor or nurse during business hours. ??? Increased redness, swelling, or heat around the tube insertion site- This may be a sign of infection. Take your temperature: if it is higher than 101F or 38.8C, call your doctor or nurse immediately. Otherwise, notify your doctor or nurse during business hours and keep the dressing clean and dry. Post-Surgical Drain Care After surgery, you will have one or two drains, called a Kevin-Frank (LATOYA) drain, placed near the incision. This device collects fluid, under suction, from your surgical area. The drain promotes healing and recovery, and reduces the chance of infection. The drain will be in place until the drainage slows enough for your body to reabsorb fluid on its own. While you are hospitalized the nursing staff will care for the drain and teach you to continue to do so at home. How to Empty Your LATOYA Drain Note: Wash your hands thoroughly before emptying your drain(s). 1. Have the plastic measuring cup from the hospital ready to collect and measure the drainage. Please measure the output at the same two times every 24 hours and record the amount. 2. Unpin the drain from your clothing. 3. Open the top of the drain. Turn the drain upside down and squeeze the contents of the bulb into the measuring cup. Be sure to empty the bulb as completely as possible. Flush the contents in the toilet. 4. Use the drain output log chart to record the amount of drainage twice a day or any time the bulb is full. Record the total for 24 hours for each drain you have. 5. If you have more than one drain, remember to record the drainage from each drain separately. 6. To prevent infection, do not let the stopper or top of the bottle touch the measuring cup or any other surface. 7. Use one hand to squeeze all of the air from the drain. With the drain still squeezed, use your other hand to replace the top. This creates the suction necessary to remove the fluids from your body. 8. Pin the drain back on your clothing to avoid pulling it out accidently. 9. Wash your hands again. Remember to wash your hands before and after the procedure to reduce the risk of infection. Stripping the Tube Often products of healing will not flow out of the narrow tube and prevent proper draining. If you do not have drainage, then: ??? Hold the tube near where it is inserted in to the skin with your one hand. ??? Use the other hand to hold a pencil and gently squeeze the tubing with the pencil while moving it down toward the drain away from your skin. This forces the more sold material into the bulb for better drainage. ??? Repeat as necessary to start the draining again. Removal of the Tube ??? The tube may be removed once a single tube output is less than 30cc (1 oz.) in 24 hours. ??? Please call the office if the output becomes thicker or has a bad odor. Kevin-Frank Drainage Record NAME: Date of Surgery: Date: Time: If more than one drain, which one: Drainage Amount (per drain) Total Amount (per drain; in 24 hours) Patient InstructionsPrice Juárez MD - 06/01/2017 8:13 AM EST [facility] Department of General Surgery Discharge Instructions CALL YOUR PHYSICIAN'S OFFICE IF: ??? You have a fever greater than 101 degrees Farenheit (38.3C) within one month of your surgery. ? ? You have diarrhea or vomiting for >24 hours, stop having bowel movements and/or passing flatus, have pain with urination. ??? You have worsening pain, not controlled with your pain medication. ??? You develop redness, swelling, or new drainage from your wound. Medications: [x] Pain Control [x] Non-narcotic pain medication - We recommend alternating with tylenol 650mg and ibuprofen 400-600mg every 6 hours (ie; tylenol at12pm, ibuprofen 3pm, tylenol 6pm, ibuprofen 9pm). - Do not take more than 4,000mg (4g) of tylenol in 24hours. [x] Narcotic pain medication - You have been prescribed 10 tablets of Tramadol. This is a narcotic medication that has several side effects/warnings: 1. Constipation: Narcotics can cause severe constipation. Please take BOTH a stool softener and pro-motility/laxative agent whenever taking narcotics, unless otherwise advised. These are over the counter. (Stool Softeners: Colace, Surfak. Laxatives/Stimulants: Miralax, Milk of Magnesia, Senna, Bisacodyl). 2. Altered mental status: Narcotics can make you sleepy and have delayed reactions. Therefore, do not drive or operate any heavy machinery while taking narcotics. 3. Addictive: Narcotics are addictive. Please take as prescribed and wean down/decrease your dose as soon as you can tolerate. 4. Restricted: Narcotics are highly regulated. If you are running out of your prescription and feelyou will need more, plan ahead and call your Physician as these cannot be filled electronically or at night/over the weekend. Again, as your pain decreases, reduce your use of these medications. You donot need to use all of the pills provided. [x] Antibiotics - You have been prescribed ciprofloxacin and flagyl [x] Other Medication(s) - The remainder of your medications are listed in the first section of the After Visit Summary. Driving Restrictions: - No driving if you are too sore from surgery to enter or exit your vehicle comfortably, or if you are too sore to easily check your blind spot. No driving while using narcotic pain medications. Shower: - It is ok to shower if you adequately cover your drain sites. Pat incision dry with a clean, dry towel. Do not submerge the wound under water (no swimming or soaking) for at least 6 weeks, or until approved by your surgeon. Diet: [x] You have been cleared to resume your regular diet - We recommend eating a regular healthy diet (ie; fresh fruits, vegetables and fiber-containing foods will assist in wound healing,) Activity: - It is normal to feel tired after surgery/hospitalization. Be as active as tolerated as this will improve recovery and prevent blood clots. - You should avoid any heavy lifting for 4 weeks after surgery. A galloon of milk is a good estimate of the maximum you should be lifting while your wounds heal. -We recommend taking several slow, short walks each day for the first two weeks, and gradually increase your distance. We recommend at least 4 times a day. Wound/Incision Care: Closure: Your skin incision(s) is closed with: [] Glue - There are sutures below the skin and the glue is the dressing. There is nothing to removeand the discoloration will go away in time. [x] Ashley - Ashley are typically removed 7-14 days after surgery. You should have a follow-up visit with the clinic nurses to have your sutures removed. [] Sutures - If your sutures are visible, they will need to be removed at a follow up appointment. If they are not visible, then they are underneath the skin and will dissolve. You may also have Steristrips covering your skin, which are strips of white tape that should fall off after ~10 days (if not, please remove manually). You may shower with them on. Infection: Observe for changes and alert the clinic if new/worsening redness or drainage. Things to avoid: Do not use creams, oils, or ointments on the wound. Keep wound open to air if it is not draining. Lines/Drains/Tubes: [x] You are being discharged with a 3 LATOYA drains Please see the multidisciplinary instructions below for details Who to call? If you have concerns or questions: - During the day, it is best to call the [facility] to speak with the Surgery nurses. The number is [phone]. - During the night or weekends call the [facility] chain machine operator at [phone] and ask to speak to the surgery resident lion trainer for general surgery. Please note: Your surgeon may not be Postal Mail Carrier, especially during the night or on weekends, so be ready to describe yourself and your surgery when you call. Follow up appointments: Future Appointments Date Time Provider Department Center 06/06/2017 4:00 PM Price Quezada MD [facility] 07/01/2017 12:00 PM Gilson Mcgee MD [facility] [x] A request for a follow-up appointment has been made and you should receive information via phone/mail in the next week. If you do not hear anything, please call the clinic at [phone] to confirm or reschedule. - We will call you with your appointment time early next week. We hope to schedule you an appointment in the office on June 07 2017. You will need to obtain a CT of the abdomen and pelvis prior tothis appointment. If you need a prior authorization, please call the General Surgery Clinic nurses [phone] for prior authorizations assistance documented in this encounter Medications at Time of Discharge Medication Sig Dispensed Refills Start Date End Date ciprofloxacin (CIPRO) 500 Take 1 tablet by 20 tablet 0 06/201706/11/2017 mg Tablet mouth 2 times daily. metroNIDAZOLE (FLAGYL) 500 Take 1 tablet by 20 tablet 0 06/201706/11/2017 mg Tablet mouth 3 times daily. traMADol (ULTRAM) 50 mg Take 1 tablet by 10 tablet 0 201706/28/2017 Tablet mouth every 6 hours as needed for Pain. ibuprofen (ADVIL;MOTRIN) Take 1 tablet by 30 tablet 12 05/2706/28/2017 600 mg Tablet mouth every 6 hours as needed for Pain (for MILD pain (1-3)). documented as of this encounter Progress Notes Patricia Rodriguez RN - 06/01/2017 4:51 PM EST 1700: Patient discharged per MD instructions. IVs removed. He is going home with three drains: 2 LATOYA and 1 to gravity with a leg bag he was provided with. Care instructions of drains was reviewed with patient. AVS reviewed with patient and hard copy was provided. All questions answered. Paper scripts for Flagyl, Cipro, and Tramadol were given to patient. Patient was wheeled off unit in wheelchair by staff. Price Juárez MD - 06/01/2017 8:08 AM EST General Surgery Resident Inpatient Progress Note ID: Daniel Urena is a 61 y.o. male s/p retroperitoneal abscess debridement/drainage 24hr events: ?? No acute events overnight Subjective: Very sore this morning; reports 5/10 pain at drain sites and around left ribs. Denies fever, chills, CP, SOB, N or vomiting. He is not happy with the food here. He wants to go come [place]. O: Last value Range last 24hrs Temperature Temp: 37.9 ??C (100.2 ??F) Temp: [36.4 ??C (97.5 ??F)-37.9 ??C (100.2 ??F)] Heart Rate Heart Rate: 89 Heart Rate: [72-98] Blood Pressure BP: 146/87 BP: (100-151)/(67-95) Respiratory Rate Resp: 18 Resp: [12-18] SpO2 SpO2: 93 % SpO2: [92 %-98 %] 05/31 0701 - 06/01 0700 In: 3534 [P.O.:1160; I.V.:2374] Out: 1000 [Urine:700] Physical Exam: General: NAD HEENT: PERRL CVS: RRR Pulm: CTAB Abd: soft, nontender, non-distended Skin: warm, dry Ext: no c/c/e, cap refill <2sec Neuro: CN 2-12 grossly intact, nonfocal,moving all four extremities spontaneously Recent Labs 06/01/17 0728 WBC 11.5* HGB 10.6* HCT 32.2* PLATELET 255 No results for input(s): NA, K, CL, CO2, BUN, CREATININE, GLUCOSE, CALCIUM, MAGNESIUM, PHOS in the last 72 hours. ASSESSMENT: Daniel Urena is a 61 y.o. male s/p retroperitoneal abscess debridement/drainage, POD1, progressing well after surgery. Will work on better pain control today and obtain a PT/OT consult to assess safety at home. PLAN: NEURO: Tylenol, Tramadol, Toradol, Zofran CV: JOYCE PULM: Stable GI: Regular diet : JOYCE FEK: DC'ing fluids ID: Cipro/Flagyl HEME: Stable ENDO: Stable PROPHYLAXIS: PPI, SubQ Heparin DISPO: Possible Discharge Home Later Today Price Juárez MD - 05/31/2017 5:31 PM EST Post-op Check Patient Name: Daniel QUINTANAN: [id number] Patient Age: 61 y.o. Attending Physician: Gilson Mcgee MD Daniel Urena is a 61 y.o. male s/p Procedure(s) (LRB): LAPAROSCOPY, DRAINAGE ABD ABSCESS (WRVU *) (N/A) LAPAROSCOPY, TUMOR EXCISION, RETROPERITONEAL (WRVU *) (N/A) S: Pt seen, examined and w/o complaints; denies f/c/n/v, chest pain, SOB. Refusing pain medication at this time, states he wants to tough it out. States he is more hungry than anything. O: Last value Range last 24hrs Temperature Temp: 36.9 ??C (98.4 ??F) Temp: [36.4 ??C (97.5 ??F)-36.9 ??C (98.4 ??F)] Heart Rate Heart Rate: 89 Heart Rate: [72-98] Blood Pressure BP: 132/86 BP: (100-151)/(67-95) Respiratory Rate Resp: 12 Resp: [12-18] SpO2 SpO2: 93 % SpO2: [92 %-98 %] I/O this shift: In: 950 [I.V.:950] Out: - General: NAD, A/O x 3 HEENT: NC/AT CV: RRR Pulm: CTAB, no w/r/r Abd: soft, NT/ND, benign Extremity: no c/c/e Skin: Warm, Dry Neuro: CN 2-12 grossly intact Incision: Dressings c/d/i. No evidence of hematoma/seroma/infection Drains: JPx2 both with SS output No results for input(s): WBC, HGB, HCT, PLATELET, PT, INR, PTT in the last 72 hours. No results for input(s): NA, K, CL, CO2, BUN, CREATININE, GLUCOSE, CALCIUM, MAGNESIUM, PHOS in the last 72 hours. A/P: Daniel Urena is a 61 y.o. male patient s/p above procedures currently in stable condition and recovering well after surgery. - Appropriate for floor - Hemodynamically stable - UOP adequate - Continue post-op plan Price Juárez MD 05/31/2017 5:31 PM Cecy Hernandez RN - 05/31/2017 11:29 AM EST Patient noted to have drain sites X2 in lower abdominal area. One site is midline, and one site is more posterior on the left. All dressings are noted to be C/D/I. documented in this encounter H&P Notes Gilson Mcgee MD - 05/31/2017 11:53 AM EST Patient Name: Daniel Urena Patient Age: 61 y.o. Birthdate: 1955 Admit date: 05/31/2017 Attending Physician: Gilson Mcgee MD Mr. Urena is here for planned laparoscopic retroperitoneal exploration, drainage of abscess. No interval change since discharged from surgery. On exam, BP (!) 151/95 Pulse 98 Temp 36.4 ??C (97.5 ??F) (Temporal) SpO2 98% Lungs are clear. Heart is regular. Drains in place. Assessment/Plan: Mr. Urena is deemed stable for planned surgery. Consent is obtained. documented in this encounter Miscellaneous Notes Plan of Care - Marta Renner PT - 06/01/2017 3:50 PM EST Problem: Patient Care Overview Goal: Plan of Care Review Outcome: Ongoing (Interventions Implemented as Appropriate) Physical Therapy Treatment Number: 1 Pertinent History of Current Problem: ID: Daniel Urena is a 61 y.o. 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 Vital Signs During Session: 90s O2 Pt seen today for Physical Therapy Initial evaluation. Pt presents with being very dyspneic walking with in need of one standing rest. Pt reports air bubble in chest with unknown etiology. Reports he will have 3 drains at home, reports they are unsure of where the drainage is coming from - has had 17 CAT scans and more images . Pt tolerated rx fairly well, able to indep clear bed mobility with hob raises, indep gait with pacing and indep with transfers. Pt has cleared PT and ready for d/c. No further inpatient PT needs. Please see the Rehab Evaluation Summaries report for objective data and specifics of today???s session. Staff Mobility Recommendations: Supervision without device Anticipated Physical Therapy Frequency: evaluation only Anticipated Equipment Needs at Discharge: (none) Pager: [phone] MARTA RENNER PT Inpatient Physical Therapy 2017 PT Evaluation Code Rationale: ?? Diagnosis & Pertinent Co-Morbidities, personal factors, and present illness affecting Plan ofCare: Patient Active Problem List Diagnosis Code ??? Retroperitoneal abscess K68.19 ??? Intra-abdominal abscess K65.1 ??? Abscess L02.91 ?? List of Factors: 0 1-2 3+ x ?? Examination of body system impairments, functional limitations and behaviors, that result in participation restrictions. Addressing 1-2 elements Addressing 3 + elements Addressing 4 + elements x ?? Clinical presentation: See assessment above. Stable/Uncomplicated Evolving/Fluctuating Symptoms Unstable/Unpredictable x ?? Clinical decision making of high complexity based on pt's functional performance as outlined in this evaluation. G-Code: Mobility Status Modifier CURRENT CK - At least 40 percent but less than 60 percent impaired, limited or restricted PROJECTED CK - At least 40 percent but less than 60 percent impaired, limited or restricted DISCHARGE CK - At least 40 percent but less than 60 percent impaired, limited or restricted G Code Rationale: This G-Code and these disability modifiers were selected on mobility as the primary therapy goal based upon the patient's evaluation including the following functional test(s) AM-PAC - Activity Measure for Post- Acute Care. Current ability measures, co-morbidities and clinical judgement were also used to select the disability modifier. Mr. Urena's current G-Code functional level is 40-59% impaired based upon mobility. Plan of Care - Gracia Kumar RN - 06/01/2017 5:51 AM EST Problem: Patient Care Overview Goal: Plan of Care Review Outcome: Ongoing (Interventions Implemented as Appropriate) OUTCOME EVALUATION NOTE: OUTCOME SUMMARY: C/O Gas pain relieved by burping, offered pain meds but resfused. Drain care done.?? PLAN MOVING FORWARD: Pain control, ambulation, drain care. INDIVIDUALIZED FALL PREVENTION INTERVENTIONS: Patient-specific fall risk factors per assessment: [current deficits]: Narcotics, Mobility aid at home, needs assistance getting in and out of bed or chair, pain with movement/ ambulation. ?? Assistance [level of assistance required for transfers and ambulation]: Walker, Cane, Non-skid slippers, stand by. Supervision [direct monitoring required during toileting and ADLs]: Eyes Arms reach . Surveillance [continuous indirect monitoring]: Purposeful rounding; call light in reach Patient-specific fall prevention interventions for sensory deficits provided, if applicable: Glasses, Lighting adjusted for safety. CPG GOAL OUTCOME EVALUATION: ?? Op Note - Nunu Kincaid - 05/31/2017 3:55 PM EST General Surgery Operative Note Patient Name: Daniel Urena : 1955 MR#: [id number] Date of Operation: 05/31/2017. Preoperative Diagnosis: Retroperitoneal abscess Postoperative Diagnosis: Retroperitoneal abscess Procedure(s): LAPAROSCOPY, DRAINAGE ABD ABSCESS (WRVU *): LAPAROSCOPY, TUMOR EXCISION, RETROPERITONEAL (WRVU *): Surgeon(s): Surgeon(s) and Role: * Gilson Mcgee MD - Primary * Price Juárez MD - Resident-Contact Centre Supervisor * Nunu Kincaid MD - Resident-Contact Centre Supervisor Anesthesia: General endotracheal anesthesia Estimated Blood Loss: 5 cc Urine Output: No Russell Intravenous Fluid: 900 cc LR Drains/Lines: 1. 19 Fr Ameya drain x2 into retroperitoneal cavity Implants: None Specimens: Order Name Source Comment Collection Info Order Time SPECIMEN TO PATHOLOGY OR 28 INTRA-ABDOMINAL ABSCESS retroperitoneal abscess Excision 05/31/2017 1:46 PM Time removed from patient: 1:43 PM Indications for Procedure: Daniel Urena is a 61 y.o. male who presents with a retroperitoneal abscess of unknown origin. He has failed IR drainage of the abscess cavity. The situation is complicated by prior spontaneous decompression to the LEFT pericolic gutter, s/p IR drainage of this collection as well. Plan for a surgical cut down of the retroperitoneal cavity and open drainage. Possible cut down and open drainage of the abdominal cavity. The procedure itself, as well as the risks, benefits, and alternatives was explained to Mr. Urena who agrees to proceed. Operative Findings: 1. Retroperitoneal abscess pocket entered via cut down along IR drain, approximately 200 cc drained,cultures sent 2. Abscess pocket explored using laparoscopy, well granulated connection visualized tracking along the lateral side-wall 3. 19 Fr Ameya drain x2 placed into the abscess pocket (one down into the track and one into the body of the cavity) Procedure in Detail: Daniel Urena was brought to the operating room and positioned in the RIGHT lateral decubitus position on the operating table, antibiotics in the form of IV Ciprofloxacin and Flagyl were administered, followed by General endotracheal anesthesia anesthesia. The patient's left flank and abdomen were prepped and draped in the usual sterile fashion. Of note, both IR drains were prepped into the field. A time out was preformed. Local anesthetic in the form of Lidocaine plain was used throughout the case. The skin was incised sharply 2 cm cranial to the previously placed retroperitoneal IR drain. Electrocautery was used for hemostasis and to dissect down through the soft tissues. The 11th and 12th ribs were identified by palpa tion. Dissection through the oblique muscles of the abdomen was performed to help improve visualization of the drain track. Once cleared of the rib spaces, blunt dissection was used to further dissect along the drain and enter into the abscess pocket. Approximately 200 cc of purulent fluid was evacuated, cultures were taken. A 12 mm Willow trocar was inserted into the cavity and secured using a 0-Vicryl [id number] placed into the intercostal muscle. Insufflation in the form of CO2 was performed, which the patient tolerated well. A 30 degree laparoscope was inserted and the cavity was explored. The main body of the cavity tracked superiorly. A well formed tract was found inferolaterally. The wall of the cavity were well formed. A Urologic PCNL scope was inserted into the cavity - suction, irrigation, and a laparoscopic grasper were used to clean out the cavity. Further exploration of the inferolateral connection was attempted. Copious irrigation was performed of the tract with close monitoring of the abdominal IR drainage bag (no further drainage was appreciated. Due to the potential difficulties with surgical exploration of the abdominal cavity in the RIGHT lateral decubitus position, and more importantly the realistic possibility that this cavity had collapsed some with drainage of the retroperitoneal cavity, further exploration of the collection was deferred. Two 19 Fr Ameya drains were placed into the cavity through separate (more anterior) insertion sites. Using the PCNL scope one of the drains was fed into the connecting tunnel and one into the main body cavity. The wound was closed in layers using a0 Vicryl for the posterior fascia and the intercostal. The subcutaneous fat was closed with 3-0 Vicryls. The skin was closed with ashley. A dressing in the form of drain sponges, gauze and Tegaderms was applied. All instrument and gauze counts were correct at the end of the procedure. The patient was awakened from anesthesia without incident and taken safely to the recovery room. Dr. Mcgee was present and scrubbed for the entire procedure. Disposition: Awakened from anesthesia, extubated and taken to the recovery room in a stable condition, having suffered no apparent untoward event. Condition: Doing well without problems NUNU KINCAID MD Associated attestation - Gilson Mcgee MD - 05/31/2017 4:53 PM EST Attestation: Case Date: 05/31/2017 I was present and I participated during the entire procedure (does not need to include opening and closing). GILSON MCGEE MD 05/31/2017 Brief Op Note - Nunu Kincaid - 05/31/2017 3:23 PM EST General Surgery Brief Operative Report Date of Surgery: 05/31/2017 Pre Procedure Diagnosis: Retroperitoneal abscess Post Procedure Diagnosis: Retroperitoneal abscess Procedure: LAPAROSCOPY, DRAINAGE ABD ABSCESS (WRVU *): LAPAROSCOPY, TUMOR EXCISION, RETROPERITONEAL (WRVU *): Surgeons: Surgeon(s): Gilson Mcgee MD Rezaee, Michael E, MD Lambour, Nunu Fontanez MD Anesthesia: General endotracheal anesthesia Fluids: 900 cc LR Estimated Blood Loss: 5 cc Urine Output: No Russell Specimens: Order Name Source Comment Collection Info Order Time SPECIMEN TO PATHOLOGY 3-3128 OR 28 INTRA-ABDOMINAL ABSCESS retroperitoneal abscess Excision 05/31/2017 1:46 PM Time removed from patient: 1:43 PM Findings: 1. Retroperitoneal abscess pocket entered via cut down along IR drain, approximately 200 cc drained,cultures sent 2. Abscess pocket explored using laparoscopy, well granulated connection visualized tracking along the lateral side-wall 3. 19 Fr Ameya drain x2 placed into the abscess pocket (one down into the track and one into the body of the cavity) Complications: Awakened from anesthesia, extubated and taken to the recovery room in a stable condition, having suffered no apparent untoward event. Disposition: Doing well without problems NUNU KINCAID MD documented in this encounter Plan of Treatment Not on filedocumented as of this encounter Procedures Procedure Name Priority Date/Time Associated Comments Diagnosis HEMOGRAM Routine 06/01/2017 7:28 Results for this AM EST procedure are i n the results section. DIFFERENTIAL, AUTOMATED Routine 06/01/2017 7:28 R esults for this AM EST procedure are i n the results section. CBC (WITH DIFF) Routine 06/01/2017 7:28 AM EST BASIC METABOLIC PANEL Routine 06/01/2017 7:28 Res ults for this (NON-FASTING) AM EST procedure are in the results section. SURGICAL PATHOLOGY Routine 05/31/2017 1:46 Result s for this REPORT PM EST procedure are i n the results section. SPECIMEN TO PATHOLOGY Routine 05/31/2017 1:46 Res ults for this PM EST procedure are i n the results section. ANAEROBIC CULTURE Routine 05/31/2017 1:37 Results for this PM EST procedure are i n the results section. ABSCESS/WOUND ASP Routine 05/31/2017 1:37 CULTURE, AEROBIC AND PM EST ANAEROBIC ABSCESS/WOUND ASPIRATE Routine 05/31/2017 1:37 Re sults for this CULTURE PM EST procedure are i n the results section. LAPAROSCOPY, TUMOR Yes 05/31/2017 12:15 INTRA-ABDOMINAL EXCISION, PM EST ABSCESS RETROPERITONEAL (WRVU *) LAPAROSCOPY, DRAINAGE Yes 05/31/2017 12:15 INTRA-ABDOMINAL ABD ABSCESS (WRVU *) PM EST ABSCESS EKG 12-LEAD Routine 05/31/2017 11:10 Results for this AM EST procedure are i n the results section. documented in this encounter Results CT Abdomen & Pelvis w Contrast (06/07/2017 3:47 PM EST) Anatomical Region Laterality Modality Abdomen, Pelvis Computed Tomography Specimen (Source) Anatomical Location Collection Method / Collectio n Time Received Time / Laterality Volume Impressions 06/07/2017 4:34 PM EST 1. Essentially complete resolution of left paracolic gutter and retroperitoneal abscesses with drains remaining in place . There is persistent inflammatory stranding in the left retroperitoneum ex tending down the left paracolic gutter. 2. New loculated left pleural effusion c ontaining air concerning for empyema. Preliminary report signed by: Mick mills at 06/07/2017 4:12 PM I have personally reviewed the image(s) and the residents interpretation and agree with the findings, Kelby cantu at 06/07/2017 4:34 PM Narrative 06/07/2017 4:34 PM EST EXAMINATION: ??CT ABDOMEN AND PELVIS W CONTRAST CLINICAL HISTORY: ??s/p retroperitoneal abscess debridement on 05/31; assess abscess status and drain success TECHNIQUE: Helical CT of the abdomen and pelvis was performed following the intravenous administration of contrast. 120 cc of Omnipaque 350 was given. Oral contrast was administered. COMPARISON: ??06/24/2017. FINDINGS: Lower chest: There is a new small left b asilar loculated pleural effusion with multiple pockets of air within the effus ion. There is mild peripheral enhancement of this effusion. This effus ion is concerning for empyema. There is associated compressive atelectasis in th e basilar left lower lobe. Liver: Unchanged contour. No focal lesio ns. Bile ducts: Nondilated. Gallbladder: Cholelithiasis is again not ed. No evidence of cholecystitis. Pancreas: Normal attenuation without gato jany dilatation. Spleen: Unchanged mild splenomegaly. Adrenals: Normal. Kidneys: lobulations again noted b ilaterally. There is a punctate nonobstructing left upper pole renal flores culus. Vasculature: No aneurysm. Lymph Nodes: No enlarged lymph nodes. Bowel: Nondilated, no wall thickening. ? ? Peritoneum and mesentery: The previously noted left paracolic gutter abscess has essentially entirely completely resolved . A drain remains in place at the former site of the abscess. There is minimal re sidual fluid at the site of the previously noted left retroperitoneal ab scess. There are 2 drains in this collection. There is residual fat strand ing in the left retroperitoneum posterior to the left adrenal gland and posterior and inferior to the left kidney which appears similar to the prev ious study. This stranding extends anterior to the left psoas muscle. Abdominal wall: Normal. Urinary Bladder: Decompressed limiting e valuation. Reproductive organs: Normal. Osseous structures: No suspicious lesion s. Procedure Note Kelby Gandhi MD - 06/07/2017For matting of this note might be different from the original. EXAMINATION: CT ABDOMEN AND PELVIS W CON TRAST CLINICAL HISTORY: s/p retroperitoneal ab scess debridement on 05/31; assess abscess status and drain success TECHNIQUE: Helical CT of the abdomen and pelvis was performed following the intravenous administration of contrast. 120 cc of Omnipaque 350 was given. Oral contrast was administered. COMPARISON: 06/24/2017. FINDINGS: Lower chest: There is a new small left b asilar loculated pleural effusion with multiple pockets of air within the effus ion. There is mild peripheral enhancement of this effusion. This effus ion is concerning for empyema. There is associated compressive atelectasis in th e basilar left lower lobe. Liver: Unchanged contour. No focal lesio ns. Bile ducts: Nondilated. Gallbladder: Cholelithiasis is again not ed. No evidence of cholecystitis. Pancreas: Normal attenuation without gato jany dilatation. Spleen: Unchanged mild splenomegaly. Adrenals: Normal. Kidneys: lobulations again noted b ilaterally. There is a punctate nonobstructing left upper pole renal flores culus. Vasculature: No aneurysm. Lymph Nodes: No enlarged lymph nodes. Bowel: Nondilated, no wall thickening. Peritoneum and mesentery: The previously noted left paracolic gutter abscess has essentially entirely completely resolved . A drain remains in place at the former site of the abscess. There is minimal re sidual fluid at the site of the previously noted left retroperitoneal ab scess. There are 2 drains in this collection. There is residual fat strand ing in the left retroperitoneum posterior to the left adrenal gland and posterior and inferior to the left kidney which appears similar to the prev ious study. This stranding extends anterior to the left psoas muscle. Abdominal wall: Normal. Urinary Bladder: Decompressed limiting e valuation. Reproductive organs: Normal. Osseous structures: No suspicious lesion s. IMPRESSION 1. Essentially complete resolution of le ft paracolic gutter and retroperitoneal abscesses with drains remaining in place . There is persistent inflammatory stranding in the left retroperitoneum ex tending down the left paracolic gutter. 2. New loculated left pleural effusion c ontaining air concerning for empyema. Preliminary report signed by: Mick mills at 06/07/2017 4:12 PM I have personally reviewed the image(s) and the residents interpretation and agree with the findings, Kelby Urrutia ki at 06/07/2017 4:34 PM Gilson Mcgee MD IMG CT ORDERABLES (ABNORMAL) Differential, Automated (06/01/2017 7:28 AM EST) [facility] gist Method Time Signature Neutrophils % 80.8 % [facility] Neutr Abs (ANC) 9.27 (H) 1.70 - [facility] 6.10 [facility] x10(3)/[facility] LABORATORY Lymphocytes % 10.4 % [facility] Lymphocytes Abs 1.2 0.9 - 3.2 [facility] x10(3)/[facility] LABORATORY Monocytes % 7.1 % [facility] Monocyte Abs 0.8 0.3 - 0.9 [facility] x10(3)/[facility] LABORATORY Eosinophils % 1.1 % [facility] Eosinophils Abs 0.1 0.0 - 0.4 [facility] x10(3)/[facility] LABORATORY Basophils % 0.3 % [facility] Basophils Abs 0.0 0.0 - 0.1 [facility] x10(3)/[facility] LABORATORY Immature Gran % 0.30 % [facility] Comment: Immature granulocytes(IG's)percentage an d absolute count will include metamyelocytes, myelocytes, and promyelo cytes. Blood smears from CBCs yielding IG's will be scanned manually for concor dance. If this scan disagrees with the automated IG or if promyelocytes are not ed, a manual differential will be performed. Mehnaz Gran Abs 0.03 0.00 - 0.04 x10(3)/[facility] Specimen Anatomical Collection Method Collection Time Receive d Time (Source) Location / / Volume Laterality Blood specimen 06/01/2017 7:28 AM 018 7:39 (specimen) EST AM EST Resulting Agency Comment Spec In Lab Nunu Kincaid MD HEMATOLOGY ORDERABLES Performing Organization Address City/State/[place] [address] (ABNORMAL) Hemogram (06/01/2017 7:28 AM EST) Analysis Performed At Patho logist Time Signature WBC 11.5 (H) 4.0 - 9.5 [facility] x10(3)/[facility] LABORATORY RBC 3.48 (L) 4.58 - [facility] x10(6)/[facility] LABORATORY Hemoglobin 10.6 (L) 13.7 - [facility] 16.[facility] gm/dL [facility] Hematocrit 32.2 (L) 40.5 - [facility] 48.5 % [facility] MCV 92.5 82.9 - [facility] 93.1 [facility] LAB[facility]ATORY MCH 30.5 27.5 - [facility] 32.1 pg [facility] MCHC 32.9 32.0 - [facility] 35.7 gm/dL [facility] Platelets 255 145 - 357 [facility] x10(3)/[facility] LABORATORY RDWSD 63.5 (H) 36.0 - [facility] 45.0 [facility] RDWCV 18.8 (H) 11.4 - [facility] 13.8 % [facility] MPV 8.2 7.6 - 12.9 [facility] LABORATORY nRBC % Auto 0.0 % [facility] nRBC Abs Auto 0.000 0.000 - [facility] 0.000 [facility] x10(3)/[facility] LABORATORY Specimen Anatomical Collection Method Collection Time Receive d Time (Source) Location / / Volume Laterality Blood specimen 06/01/2017 7:28 AM 018 7:39 (specimen) EST AM EST Resulting Agency Comment Spec In Lab Nunu Kincaid MD HEMATOLOGY ORDERABLES Performing Organization Address City/State/[place] [address] (ABNORMAL) Basic Metabolic Panel (non-fasting) (06/01/2017 7:28 AM EST) P athologist Signature Glucose Lvl 124 65 - 199 [facility] mg/dL [facility] Comment: Diabetes: >=200 mg/dL plus symp toms BUN 9 (L) 10 - 20 mg/dL [facility] Creatinine 1.19 0.80 - 1.50 mg/dL [facility] Sodium 136 135 - 145 mmol/L [facility] Potassium 4.3 3.5 - 5.0 mmol/L [facility] Comment: Please note: ??Patients with WBC >100,00 0 may have falsely elevated Potassium levels. ??For accurate Potassium quantif ication in these patients send serum separator tube (gold top) for subsequent determinations. ??Contact the Clinical Chemistry Laboratory if there are any qu estions. Chloride 99 98 - 107 mmol/L [facility] CO2 23 22 - 31 mmol/L [facility] Anion Gap 14 5 - 15 mmol/L [facility] Calcium 8.6 8.5 - 10.5 mg/dL [facility] Estimated GFR >60 >=60 [facility] Comment: The reported eGFR should be multiplied b y 1.2 for patients. The MDRD is not an appropriate measure o f renal function for patients with body mass extremes or in patients with acute kidney failure. http://[facility]/DHnkdep http://[facility]/DHMCnkf Specimen Anatomical Collection Method Collection Time Receive d Time (Source) Location / / Volume Laterality Blood specimen 06/01/2017 7:28 AM 018 7:39 (specimen) EST AM EST Resulting Agency Comment Spec In Lab Gilson Mcgee MD CHEMISTRY ORDERABLES Performing Organization Address City/State/[place] [address] [facility] [address] Surgical Pathology Report (05/31/2017 1:46 PM EST) Component Value Ref Test Analysis Performed At [facility] Range Method Time Signature Surgical [id number] ? Location: 4T; 0403; A [facility] Report The signing pathologist has (i) examined the relevant preparation(s) for the [facility] specimen(s) and (ii) rendered or confirmed the diagnosis(es) . HOSPITAL LABORATORY . ?Surgic al Pathology DIAGNOSIS Retroperitoneal abscess, incision and drainage: - Necrosis and abscess formation, see discussion Electronically signed by: ??Alejandro Strong MD Verified: ??06/07/2017 ?Dermatopathologist, Bone & Soft Tissue Pathologist Performed at: ??-[facility] Dept. of Pathology, [place], [place] DISCUSSION Gram special stain does not reveal any gram positive bacteri al organisms. CLINICAL INFORMATION Specimen Submitted: A - Retroperitoneal abscess Clinical History: Intra-abdominal abscess Clinical Diagnosis: Same SPECIMEN PROCESSING A - Labeled/Fixative: Retroperitoneal abscess, fresh. Quantity/Size: Fragments, aggregating 3.7 x 1.5 x 0.8 cm. Tissue Description: Soft, diffluent, nunes-yellow tissue. Sections/Processing: Patternmaker Hand sections are submitted. (R1) ??pps Specimen (Source) Anatomical Collection Method Collection Time Re ceived Time Location / / Volume Laterality 05/31/2017 1:46 PM EST Gilson Mcgee MD PATHOLOGY/CYTOLOGY ORDERABLE S Performing Organization Address City/[facility]/ZIP [place] [address] Specimen to Pathology (05/31/2017 1:46 PM EST) Specimen Anatomical Collection Method Collection Time Receive d Time (Source) Location / / Volume Laterality AP Specimen 05/31/2017 1:46 PM 8 1:46 EST PM EST Narrative [facility] - 05/31/2017 1:46 PM EST Specimen requisition ordered. ??Separate Pathology report to follow Gilson Mcgee MD PATHOLOGY/CYTOLOGY ORDERABLE S Performing Organization Address City/[facility]/ZIP [place] [address] Anaerobic Culture (05/31/2017 1:37 PM EST) [facility] gist Method Time Signature Anaerobic No anaerobic [facility] organisms [facility] LABORATORY Specimen Anatomical Collection Method Collection Time Receive d Time (Source) Location / / Volume Laterality Specimen from ABDOMEN / Unknown 05/31/2017 1:37 PM 05/2017 3:48 abscess EST PM EST (specimen) Comment: OR 28 Resulting Agency Comment Spec In Lab Gilson Mcgee MD MICROBIOLOGY - GENERAL ORDER TIAN Performing Organization Address [facility]/ZIP [place] [address] Abscess/Wound Aspirate Culture (05/31/2017 1:37 PM EST) Component Value Ref Test Analysis Performed At [facility] gist Range Method Time Signature Abscess/Wound No growth [facility] Aspirate [place] Culture [facility] Gram Stain Many White Blood Cells seen M DANIEL No microorganisms seen. [facility] Specimen Anatomical Collection Method Collection Time Receive d Time (Source) Location / / Volume Laterality Specimen from ABDOMEN / Unknown 05/31/2017 1:37 PM 05/2017 3:48 abscess EST PM EST (specimen) Comment: OR 28 Resulting Agency Comment Spec In Lab Gilson Mcgee MD MICROBIOLOGY - GENERAL ORDER TIAN Performing Organization Address City/[facility]/ZIP [place] [address] EKG 12 Lead (05/31/2017 11:10 AM EST) Component Value Ref Range Test Analysis Performed Pathologis t Method Time At Signature Ventricular rate 100 BPM MUSE SYSTEM Atrial Rate 100 BPM MUSE SYSTEM P-R Interval 170 ms MUSE SYSTEM QRS Duration 90 ms MUSE SYSTEM Q-T Interval 352 ms MUSE SYSTEM QTC Calculated 454 ms MUSE SYSTEM (Bezet) Calculated P Orient 45 degrees MUSE SYSTEM Calculated R Orient 0 degrees MUSE SYSTEM Calculated T Orient 32 degrees MUSE SYSTEM INTERPRETATION Normal sinus rhythm MUSE SYSTEM Low voltage QRS Borderline ECG When compared with ECG of 11-MAY-2017 17:23, Premature ventricular complexes are no longer Present Confirmed by MD Quintana Timothy ([id number]) on 05/31/2017 11:49:07 A M Specimen Anatomical Collection Method Collection Time Receive d Time (Source) Location / / Volume Laterality 05/31/2017 11:10 05/31/2017 AM EST 11:49 AM EST Unknown ECG ORDERABLES Performing Organization Address City/State/ZIP Code Phon e Number MUSE SYSTEM documented in this encounter Visit Diagnoses Diagnosis Intra-abdominal abscess Peritoneal abscess Retroperitoneal abscess Other retroperitoneal abscess Intra-abdominal abscess Peritoneal abscess documented in this encounter Administered Medications Inactive Administered Medications - up to 3 most recent administrations Medication Order MAR Action Action Date Dose Rate Site ciprofloxacin (CIPRO) tablet 500 Given 06/01/2017 9:02 AM EST 50 0 mg mg 500 mg, Oral, 2 TIMES DAILY, First dose on Sat05/31/17 at 2100, Until Discontinued, Routine Given 05/31/2017 8:38 PM EST 500 mg heparin (Porcine) subcutaneous injection Given 018 1:50 PM EST 5,000 Units 5,000 Units 5,000 Units, Subcutaneous, EVERY 8 HOURS SCHEDULED, First dose on Sat05/31/17 at 2200, Until Discontinued, Routine Given 06/01/2017 6:00 AM EST 5,000 Units Given 05/31/2017 9:20 PM EST 5,000 Units HYDROmorphone (DILAUDID) injection 0.4-0 .6 mg Given 05/31/2017 4:45 PM EST 0.4 mg 0.4-0.6 mg, Intravenous, EVERY 5 MIN PRN, Starting on Sat05/31/17 at 1454, Until Sat05/31/17 at 1815, Pain, Give 0.4 mg every 5 minutes PRN for mild to moderate pain (1-5) Give 0.6 mg every 5 minutes PRN for moderate to severe pain (6-10). Hold for respiratory rate less than 10 per minute. Maximum dose 4 mg over one hour. If multiple pain medications are ordered, start with hydromorphone or morphine and use fentanyl for breakthrough pain., PACU Recovery, Routine Given 05/31/2017 4:20 PM EST 0.4 mg Given 05/31/2017 4:10 PM EST 0.2 mg ketorolac (TORADOL) injection 15 mg Given 06/01/2017 12:55 PM EST 15 mg 15 mg, Intravenous, EVERY 6 HOURS PRN, Starting on Sat05/31/17 at 1552, Until 06/01/17 at 1908, Pain, Routine Given 06/01/2017 6:34 AM EST 15 mg lactated Ringers infusion 1,000 New Bag 06/01/2017 12:40 AM ES T 1,000 mLs 100 mL/hr mL 1,000 mL, at 100 mL/hr, Intravenous, CONTINUOUS, Starting on Sat05/31/17 at 1615, Until 06/01/17 at 0616 New Bag 05/31/2017 4:03 PM EST 1,000 mLs 100 mL/hr metroNIDAZOLE (FLAGYL) tablet 500 mg Given 06/01/2017 4:05 PM EST 500 mg 500 mg, Oral, 3 TIMES DAILY, First dose on Sat05/31/17 at 2100, Until Discontinued, Routine Given 06/01/2017 9:02 AM EST 500 mg Given 05/31/2017 8:38 PM EST 500 mg ondansetron (ZOFRAN) injection 4-8 mg 4-8 mg, Intravenous, EVERY 8 HOURS PRN, Starting on Sat05/31/17 at 1940, Until 06/01/17 at 1908, Nausea, Start with 4mg a nd if ineffective in 30 minutes, give an additional 4mg If multiple antiemetic s are ordered, give ondansetron first. ondansetron (ZOFRAN) tablet 4-8 mg 4-8 mg, Oral, EVERY 8 HOURS PRN, Startin g on Sat05/31/17 at 1940, Until 06/01/17 at 1908, Nausea, Vomiting, If multiple antiemetics are ordered, use ondansetron first. PO Preferred. If patient unable to take PO, may give IV if ordered. Start with 4mg and if ineffective in 45 minutes, give an add itional 4mg. If unable to take PO, may give IV., Routine pantoprazole (PROTONIX) injection 40 mg Given 06/01/2017 9:02 AM EST 40 mg 40 mg, Intravenous, DAILY, First dose on Sat05/31/17 at 2000, Until Discontinued Given 05/31/2017 8:38 PM EST 40 mg sodium chloride 0.9 % flush 5 mL Given 06/01/2017 9:04 AM EST 5 mLs 5 mL, Intravenous, 2 TIMES DAILY, First dose on Sat05/31/17 at 2100, Until Discontinued, Routine Given 05/31/2017 8:39 PM EST 5 mLs documented in this encounter Active and Recently Administered Medications Times are shown in EST. Scheduled Medication Order 05/30/2017 05/31/2017 06/01/2017 ciprofloxacin (CIPRO) 400mg in dextrose 5% 200mL (COMPLETED) 1240 (Given - Provider: Kathy Angeles CRNA) 400 mg, Intravenous, AUTOMOTIVE ELECTRICAL FITTER TO O.R., 1 dose, Sat05/31/17 at 1245, Administer over 60 Minutes, Indication for (Active or Suspected): Prophylaxis, Restricted Antibiotic: Please indicate the most appropria te choice: Pre-approved Indication (State the indication in Comm ents field) ciprofloxacin (CIPRO) tablet 500 mg 2037 (Given - Provider: Gracia Alicea RN) 09 (Given - Provider: Patricia norris, MEET) 500 mg, Oral, 2 TIMES DAILY, First dose on Sat05/31/17 at 2100, Until Discontinued, Routine heparin (Porcine) subcutaneous injection 5,000 Units 2119 (Given - Provider: Gracia Kumar, MEET) 0600 (Given - Provider: Gracia Alicea RN)1350 (Given - Provider: Patricia Rodriguez RN) 5,000 Units, Subcutaneous, EVERY 8 HOURS SCHEDULED, First dose on Sat05/31/17 at 2200, Until Discontinued, Routine metroNIDAZOLE (FLAGYL) 500 mg in sodium chloride 0.9% 100 mL (COMPLETED) 1240 (Given - Provider: Kathy Angeles CRNA) 500 mg, Intravenous, AUTOMOTIVE ELECTRICAL FITTER TO O.R., 1 dose, Sat05/31/17 at 1230, Administer over 30 Minutes, Indication for (Active or Suspected): Prophylaxis metroNIDAZOLE (FLAGYL) tablet 500 mg 203 8 (Given - Provider: Gracia Alicea RN) 0902 (Given - Provider: Patricia norris, MEET)1605 (Given - Provider: Patricia Rodriguez RN) 500 mg, Oral, 3 TIMES DAILY, First dose on Sat05/31/17 at 2100, Until Discontinued, Routine pantoprazole (PROTONIX) injection 40 mg 203 (Given - Provider: Gracia Kumar RN) 0902 (Given - Provider: Patricia norris RN) 40 mg, Intravenous, DAILY, First dose on Sat05/31/17 at 2000, Until Discontinued sodium chloride 0.9 % flush 5 mL 2038 (G iven - Provider: Gracia Alicea RN) 0904 (Given - Provider: Patricia norris RN) 5 mL, Intravenous, 2 TIMES DAILY, First dose on Sat05/31/17 at 2100, Until Discontinued, Routine Continuous Medication Order 05/30/2017 05/31/2017 06/01/2017 lactated Ringers infusion 1,000 mL (CANCELED) 1211 (New Bag - Provider: Kathy Angeles CRNA)1500 (Anesthesia Volume Adjustment - Provider: Kathy Angeles CRNA) 1,000 mL, at 100 mL/hr, Intravenous, CON TINUOUS, Starting Sat05/31/17 at 1115, Until Sat05/31/17 at 1552, Day of Surgery (Day of Procedure) lactated Ringers infusion 1,000 mL (CANCELED) 1603 (New Bag - Provider: Jossy Peterson RN) 0040 (New Bag - Provider: Gracia Ennis RN) 1,000 mL, at 100 mL/hr, Intravenous, CON TINUOUS, Starting Sat05/31/17 at 1615, Until 06/01/17 at 0616 PRN Medication Order 05/30/2017 05/31/2017 06/01/2017 BUpivacaine (PF) (MARCAINE) 0.5 % (5 mg/mL) injection (CANCE LED) 1506 (Given - Provider: Gilson Mcgee MD) ONCE PRN, Starting Sat05/31/17 at 1506, U ntil 06/01/17 at 1908, Intra-Operative (Intra-Procedure), Routine HYDROmorphone (DILAUDID) injection 0.3 mg 0.3 mg, Intravenous, EVERY 4 HOURS PRN, Starting 05/31/17 at 1940, Until 06/01/17 at 1908, Pain, Use for breakthrough not relieved by tramadol, Routine HYDROmorphone (DILAUDID) injection 0.4-0.6 mg (CANCELED) 1610 (Given - Provider: Jossy Peterson RN)1620 (Given - Provider: Jossy Peterson, MEET)1645 (Given - Provider: Jossy Peterson RN) 0.4-0.6 mg, Intravenous, EVERY 5 MIN PRN , Starting 05/31/17 at 1454, Until 05/31/17 at 1815, Pain, Give 0.4 mg every 5 minutes PRN for mild to moderate pain (1-5) Give 0.6 mg every 5 minutes PRN for moderate to severe pain (6-10). Hold fo r respiratory rate less than 10 per minute. Maximum dose 4 mg over one hour. If multiple pain medications are ordered, start with hydromorphone or morphine and us e fentanyl for breakthrough pain., PACU Recovery, Routine ketorolac (TORADOL) injection 15 mg 0634 (Given - Provider: Gracia Alicea RN)1255 (Given - Provider: Patricia Rodriguez RN) 15 mg, Intravenous, EVERY 6 HOURS PRN, S tarting Sat05/31/17 at 1552, Until 06/01/17 at 1908, Pain, Routine lidocaine (XYLOCAINE) 10 mg/mL (1 %) injection 3 mg 3 mg (0.3 mL), Subcutaneous, ONCE PRN, 1 dose, Starting Sat05/31/17 at 1940, Until 06/01/17 at 1908, for discomfort with PIV insertion, Routine ondansetron (ZOFRAN) injection 4-8 mg(Linked Group 1) 4-8 mg, Intravenous, EVERY 8 HOURS PRN, Starting Sat05/31/17 at 1940, Until 06/01/17 at 1908, Nausea, Start with 4mg and if ineffective in 30 minutes, give an additional 4mg If multiple antiemetics are ordered, give ondansetron first. ondansetron (ZOFRAN) tablet 4-8 mg(Linked Group 1) 4-8 mg, Oral, EVERY 8 HOURS PRN, Startin g Sat05/31/17 at 1940, Until 06/01/17 at 1908, Nausea, Vomiting, If multiple antiemetics are ordered, use ondansetron first. PO Preferred. If patient unable to take PO, may give IV if ordered. Star t with 4mg and if ineffective in 45 minutes, give an additional 4mg. If unable to take PO, may give IV., Routine sodium chloride 0.9 % flush 5-20 mL 5-20 mL, Intravenous, EVERY 1 MIN PRN, S tarting Sat05/31/17 at 1940, Until 06/01/17 at 1908, flush, Flush pertains to all indwelling lines. Flush per protocol found in the job aid using the link provided on this medication record., Routine traMADol (ULTRAM) tablet 50 mg 1605 (Not Given - Provider: Jossy Peterson RN - Reason: Patient/family refused - Comment: patient refused) 50 mg, Oral, EVERY 6 HOURS PRN, Starting Sat05/31/17 at 1552, Until 06/01/17 at 1908, Pain, Routine Linked Groups Order Group 1: ondansetron (ZOFRAN) tablet 4-8 mgJump to med 4-8 mg, Oral, EVERY 8 HOURS PRN, Startin g Sat05/31/17 at 1940, Until 06/01/17 at 1908, Nausea, Vomiting
If multiple antiemetics are ordered, use ondansetron first. PO Preferred. If patient unable to take PO, may give I V if ordered. Start with 4mg and if ineffective in 45 minutes, give an additional 4mg. If unable to take PO, may give IV.
Routine Or ondansetron (ZOFRAN) injection 4-8 mgJump to med 4-8 mg, Intravenous, EVERY 8 HOURS PRN, Starting 05/31/18 at 1940, Until 06/01/17 at 1908, Nausea
Start with 4mg and if ineffective in 30 minutes, give an additional 4mg If mult iple antiemetics are ordered, give ondan setron first.
documented in this encounter Care Teams Drop Wire Stringer Relationship Specialty Start Date End Date Odalys Laird MD PCP - General Internal Medicine 04/27/[address] [place] [address] [id number] [facility] [address] [place] [address] documented as of this encounter
--- OUTSIDE RECORDS SUMMARY | 2022-01-19 01:23 | XMS_ITS | Encounter Summary ---
:1955 Author Organization [facility] [place] [address] Care Team Providers Name Role Phone Odalys Laird MD Primary Care Provider Reason for Referral Diagnostic Test (Routine) - Closed Specialty Diagnoses / Procedures Referred By Contact Refer red To Contact Radiology Diagnoses Intra-abdominal abscess Price Juárez MD [facility] Rad Ct Scan Procedures CT Abdomen & Pelvis w Contrast [facility] [place] [address] [place] [address] Referral ID Status Reason Start Date Expiration Date Visits V isits Requested Authorized [id number] Closed Specialty 06/03/2017 09/01/2017 1 1 Service Requested Reason for Visit Auth/Cert Specialty Diagnoses / Procedures Referred By Contact Refer red To Contact Diagnoses Loculated pleural effusion PLEURAL EFFUSION empyema Procedures @THORACOSCOPY, SURG; W PART. DECORTICATION (WRVU 18.78) Referral ID Status Reason Start Date Expiration Date Visits Requ ested Visits Authorized [id number] 1 1 Encounter Details Date Type Department Care Team Description 06/07/[address] Scan at [facility] Gilson Mcgee, Intra-abdominal [facility] abscess Bhavesh [facility] [id number] GENERAL SURGERY [phone] [place] [address] Social History Tobacco Use Types Packs/Day Years [...] 06/28/2017 mg Tablet mouth 3 times daily. ciprofloxacin (CIPRO) 500 Take 1 tablet by 20 tablet 0 /06/201706/11/2017 mg Tablet mouth 2 times daily. metroNIDAZOLE [...] pain (1-3)). documented as of this encounter Plan of Treatment Not on filedocumented as of this encounter Procedures Procedure Name Priority Date/Time Associated Diagnosis Comme nts CT ABDOMEN AND Routine 06/07/2017 3:47 PM Intra-abdominal Resu lts for this PELVIS W CONTRAST EST abscess procedure are in the results section. documented in this [...] Kelby Urrutia ki at 06/07/2017 4:34 PM Narrative 06/07/2017 4:34 [...] Kelby Urrutia ki at 06/07/2017 4:34 PM Gilsno Mcgee MD IMG CT ORDERABLES documented in this encounter Visit Diagnoses Diagnosis Intra-abdominal abscess Peritoneal abscess documented in this encounter Administered Medications Inactive Administered Medications - up to 3 most recent administrations Medication Order MAR Action Action Date Dose Rate Site iohexol (OMNIPAQUE) 350 mg/mL Given 06/07/2017 3:49 PM EST 120 m Ls solution 0-200 mL 0-200 mL, Intravenous, ONCE PRN, 1 dose, Starting on Sat06/07/17 at 1548, Until Sat06/07/17 at 1549, Per Protocol, Warning Vesicant/Irritant Medication , Radiology Contrast, Routine iohexol (OMNIPAQUE) 350 mg/mL solution 5 0 mL Given 06/07/2017 3:49 PM EST 50 mLs 50 mL, Oral, ONCE PRN, 1 dose, Starting on Sat06/07/17 at 1548, Until 06/07/17 at 1549, Per Protocol, Routine documented in this encounter Care Teams Fabrication Welder Relationship Specialty Start Date End Date Odalys Laird MD PCP - General Internal Medicine 04/27/[address] [place] [address] [address] [facility] [address] [place] [address] documented as of this encounter
--- OUTSIDE RECORDS SUMMARY | 2022-01-19 01:23 | XMS_ITS | Encounter Summary ---
:1955 Author Organization [facility] [address] Care Team Providers Name Role Phone Odalys Laird MD Primary Care Provider Reason for Visit Reason Comments Follow-up Auth/Cert Specialty Diagnoses / Procedures Referred By Contact Refer red To Contact Diagnoses Abscess INTRA-ABDOMINAL ABCESS- NOT DRAINING Procedures EMERGENCY IPI Referral ID Status Reason Start Date Expiration Date Visits Requ ested Visits Authorized [id number] 1 1 Encounter Details Date Type Department Care Team Description 05/24/2017 Office Visit General Surgery at [facility] Gilson Mcgee MD [facility] [place] [address] GENERAL SURGERY [phone] [place], [place] [address] (Wo rk) Social History Tobacco [...] Sign Reading Time Taken Comments Blood Pressure 126/69 05/24/2017 4:41 PM EST Pulse 127 05/24/2017 4:41 PM EST Temperature 36.3 ??C (97.3 ??F) 05/24/2017 4:41 PM EST Respiratory Rate - - Oxygen Saturation 98% 05/24/2017 4:41 PM EST Inhaled Oxygen Concentration - - Weight 155.1 kg (342 lb) 05/24/2017 4:41 PM EST Height 175.3 cm (5' 9) 05/24/2017 4:41 PM EST Body Mass Index 50.5 05/24/2017 4:41 PM EST documented in this encounter Progress Notes Kimberly Prince, RN - 05/24/2017 4:45 PM EST Pt arrived to clinic after getting a CT scan. Pt's intraabdominal abscess has gotten bigger. Discussed with Dr Mcgee who is in the OR. Dr Juárez notified over to assess the patient. We flushed both left lateral flank LATOYA drains with 5 cc's of NS. Anterior drain would not pull back any fluid and did not drain after putting LATOYA back to suction which it held. Posterior drain has some creamy drainage in the tubing flushed easily but nothing on pull back and no immediate drainage noted on putting it back to suction. Decision to admit patient. Dr Juárez to do orders, report given to 4 chandan RN for room 406. Pt already has a HC in his left AC from his CT scan. PT has gone to eat then wait at admitting as the room is not ready. 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 I did call security to let them know. PT's license # is [id number]. There Is a tool box and broom in the back. PT agreed with the plan for possible drain placement tomorrow and OR on Saturday. Patient seen and examined. Agree with above note. Gilson Mcgee MD #[id number] documented in this encounter Plan of Treatment Not on filedocumented as of this encounter Visit Diagnoses Diagnosis Abscess Cellulitis and abscess of unspecified si te documented in this encounter Care Teams Typewriter Mechanic Relationship Specialty Start Date End Date Odalys Laird MD PCP - General Internal Medicine 04/27/[address] [facility] [address] [place] [address] documented as of this encounter
--- OUTSIDE RECORDS SUMMARY | 2022-01-19 01:23 | XMS_ITS | Encounter Summary ---
:1955 Author Organization [facility] [place] [address] Care Team Providers Name Role Phone Odalys [...] Expiration Date Visits Requ ested Visits Authorized [id number] 1 Encounter Details Date Type Department Care Team Description 05/31/2017 Surgery Main Operating Room Gilson Mcgee MD LAPAROSCOPY, DRAINAGE [facility] CENTE R ABD ABSCESS (WRVU *) [place] [address] [place] [address] [phone] Social History Tobacco Use Types Packs/Day Years [...] Sign Reading Time Taken Comments Blood Pressure 151/95 05/31/2017 11:04 AM EST Pulse 98 05/31/2017 11:04 AM EST Temperature 36.4 ??C (97.5 ??F) 05/31/2017 11:04 AM EST Respiratory Rate - - Oxygen Saturation 98% 05/31/2017 11:04 AM EST Inhaled Oxygen Concentration - - [...] - Primary * Price Juárez MD - Resident-Tree Care Foreman * Nunu Kincaid MD - Resident-Tree Care Foreman: Procedure(s): LAPAROSCOPY, DRAINAGE ABD ABSCESS (WRVU *) [...] Component Value Units Date/Time Abscess/Wound Aspirate Culture [[id number]] Collected: 05/31/17 1337 Lab Status: Preliminary result Specimen: Abscess from Abdomen Updated: 06/01/17 0807 Abscess/Wound Aspirate Culture No growth to date. Gram Stain -- Many White Blood Cells seen No microorganisms seen. Body Fluid Culture, Aerobic & Anaerobic Ascites Fluid [[id number]] Collected: 05/25/17 1447 Lab Status: Final result Specimen: Ascites Fluid Updated: 05/29/17 1326 Body Fluid Culture, Aerobic [[id number]] (Abnormal) Collected: 05/25/17 1447 Lab Status: Final result Specimen: Ascites Fluid Updated: 05/29/17 1020 Body Fluid Culture Rare Coagulase negative Staphylococcus species (A) Anaerobic Culture [[id number]] Collected: 05/25/17 1447 Lab Status: Final result Specimen: Ascites Fluid Updated: 05/29/17 1326 Anaerobic Culture No anaerobic organisms isolated Body Fluid Culture, Aerobic & Anaerobic Abdominal Fluid [[id number]] Collected: 05/10/17 1630 Lab Status: Final result Specimen: Abdominal Fluid Updated: 05/14/17 1357 Body Fluid Culture, Aerobic [[id number]] Collected: 05/10/17 1630 Lab Status: Final result Specimen: Abdominal Fluid Updated: 05/14/17 1143 Body Fluid Culture No growth Gram Stain -- Many White Blood Cells seen No microorganisms seen. Anaerobic Culture [[id number]] Collected: 05/10/17 1630 Lab Status: Final result [...] Center 06/06/2017 4:00 PM Price Quezada MD [facility] [address] [place] [address] CLIN 07/01/2017 12:00 PM Gilson Mcgee MD [facility] Outpatient Services/Studies: CT Abdomen & Pelvis w Contrast Standing Status: Future Standing Exp. Date: 12/07/17 Question Response Notes Where will study be performed? [facility] [120] Reason for exam and clinical history: s/p retroperitoneal abscess debridement on 05/31; assess abscessstatus and drain success Instructions Given to Patient at Discharge:. An After Visit Summary was printed and given to the patient. Patient Instructions [facility] Department of General Surgery Discharge Instructions CALL [...] go away in time. [x] Ashley - Huntley are typically removed 7-14 days after surgery. [...] day, it is best to call the [facility] to speak with the Surgery nurses. The number is [phone]. - During the night or weekends call the [facility] electronic heat seal operator at [phone] and ask to speak to the surgery resident electrical parts reconditioner for general surgery. Please note: Your surgeon may not be Upkeep Worker, especially during the night or on weekends, so be ready to describe yourself and your surgery when you call. Follow up appointments: Future Appointments Date Time Provider Department Center 06/06/2017 4:00 PM Price Quezada MD [facility] 07/01/2017 12:00 PM Gilson Mcgee MD Le[facility] S[facility] [x] A request for a follow-up appointment has been made and you should receive information via phone/mail in the next week. If you do not hear anything, please call the clinic at [phone] to confirm or reschedule. - We will call you with your appointment time early next week. We hope to schedule you an appointment in the office on June 07 2017. You will need to obtain a CT of the abdomen and pelvis prior tothis appointment. If you need a prior authorization, please call the General Surgery Clinic nurses [phone] for prior authorizations assistance General Instructions LATOYA [...] becomes thicker or has a bad odor. [facility] Drainage Record NAME: Date of Surgery: Date: [...] Juárez MD - 06/01/2017 8:13 AM EST [facility] Department of General Surgery Discharge Instructions CALL [...] discoloration will go away in time. [x] Huntley - Ashley are typically removed 7-14 days [...] with the Surgery nurses. The number is [phone]. - During the night or weekends call the [facility] electronic heat seal operator at [phone] and ask to speak to the surgery resident electrical parts reconditioner for general surgery. Please note: Your surgeon may not be Upkeep Worker, especially during the night or on weekends, so be ready to describe yourself and your surgery when you call. Follow up appointments: Future Appointments Date Time Provider Department Center 06/06/2017 4:00 PM Price Quezada MD [facility] [place] [facility] 07/01/2017 12:00 PM Gilson Mcgee MD [facility] [x] A request for a follow-up appointment has been made and you should receive information via phone/mail in the next week. If you do not hear anything, please call the clinic at [phone] to confirm or reschedule. - We will call you with your appointment time early next week. We hope to schedule you an appointment in the office on June 07 2017. You will need to obtain a CT of the abdomen and pelvis prior tothis appointment. If you need a prior authorization, please call the General Surgery Clinic nurses [phone] for prior authorizations assistance documented in this [...] off unit in wheelchair by staff. Price Castañeda MD - 06/01/2017 8:08 AM EST General [...] DISPO: Possible Discharge Home Later Today Price Castañeda MD - 05/31/2017 5:31 PM EST Post-op Check Patient Name: Daniel Urena Patient Age: 61 y.o. Attending Physician: Gilson [...] plan Price Juárez MD 05/31/2017 5:31 PM Mary, Cecy Wu RN - 05/31/2017 11:29 AM EST Patient [...] Miscellaneous Notes Plan of Care - Marta Renner, PT - 06/01/2017 3:50 PM EST Problem: Patient Care Overview Goal: Plan of Care Review Outcome: Ongoing (Interventions Implemented as Appropriate) Physical Therapy Treatment Number: 1 Pertinent History of Current Problem: ID: Daniel Urena is a 61 y.o. male s/p retroperitoneal abscess debridement/drainage Living Environment Comment: Lives in [place], [place] with older sister, 2 rails up [...] Anticipated Equipment Needs at Discharge: (none) Pager: [phone] MARTA RENNER, PT Inpatient Physical Therapy 2017 PT Evaluation [...] Patient Name: Daniel Urena : 1955 MR#: [id number] Date of Operation: 05/31/2017. Preoperative Diagnosis: Retroperitoneal abscess Postoperative Diagnosis: Retroperitoneal abscess Procedure(s): LAPAROSCOPY, DRAINAGE ABD ABSCESS (WRVU *): LAPAROSCOPY, TUMOR EXCISION, RETROPERITONEAL (WRVU *): Surgeon(s): Surgeon(s) and Role: * Gilson Mcgee MD - Primary * Price Juárez MD - Resident-Tree Care Foreman * Nunu Kincaid MD - Resident-Tree Care Foreman Anesthesia: General endotracheal anesthesia Estimated Blood Loss: 5 cc Urine Output: No Russell Intravenous Fluid: 900 cc LR Drains/Lines: 1. 19 Fr Ameya drain x2 into retroperitoneal cavity Implants: None Specimens: Order Name Source Comment Collection Info Order Time SPECIMEN TO PATHOLOGY 33128 OR 28 INTRA-ABDOMINAL ABSCESS retroperitoneal abscess Excision [...] the cavity and secured using a 0-Vicryl atmdge-se-jncss placed into the intercostal muscle. Insufflation in [...] Collection Info Order Time SPECIMEN TO PATHOLOGY 3 OR INTRA-ABDOMINAL ABSCESS retroperitoneal abscess Excision 05/31/2017 1:46 [...] findings, Kelby cantu at 06/07/2017 4:34 PM Gilson Mcgee MD IMG CT ORDERABLES (ABNORMAL) Differential, Automated (06/01/2017 7:28 AM EST) [facility] Method Time Signature Neutrophils % 80.8 % [facility] LABORATORY Neutr Abs (ANC) 9.27 (H) 1.70 - [facility] 6.10 [facility] x10(3)/[facility] LABORATORY Lymphocytes % 10.4 % [facility] Lymphocytes Abs 1.2 0.9 - 3.2 [facility] x10(3)/[facility] LABORATORY Monocytes % 7.1 % [facility]OR[facility] Monocyte Abs 0.8 0.3 - 0.9 [facility] x10(3)/[facility] LABORATORY Eosinophils % 1.1 % [facility]ORY Eosinophils Abs 0.1 0.0 - 0.4 [facility] x10(3)/[facility] LABORATORY Basophils % 0.3 % [facility]OR[facility]ORY Basophils Abs 0.0 0.0 - 0.1 [facility] x10(3)/[facility] LABORATORY Immature Gran % 0.30 % [facility]OR[facility]ORY Comment: Immature granulocytes(IG's)percentage an d absolute count will include metamyelocytes, myelocytes, and promyelo cytes. Blood smears from CBCs yielding IG's will be scanned manually for concor dance. If this scan disagrees with the automated IG or if promyelocytes are not ed, a manual differential will be performed. Mehnaz Gran Abs 0.03 0.00 - 0.04 x10(3)/[facility] LABORATORY Specimen Anatomical Collection Method Collection Time Receive d Time (Source) Location / / Volume Laterality Blood specimen 06/01/2017 7:28 AM 018 7:39 (specimen) EST AM EST Resulting Agency Comment Spec In Lab Nunu Kincaid MD HEMATOLOGY ORDERABLES Performing Organization Address City/State/[place] [address] (ABNORMAL) Hemogram (06/01/2017 7:28 AM EST) Analysis Performed At Patho logist Time Signature WBC 11.5 (H) 4.0 - 9.5 [facility] x[facility](3[facility] LABORATORY RBC 3.48 (L) 4.58 - [facility] x10(6)/[facility] LABORATORY Hemoglobin 10.6 (L) 13.7 - [facility] 16.5 gm/dL [facility] Hematocrit 32.2 (L) 40.5 - [facility] 48.5 % [facility] MCV 92.5 82.9 - [facility] 93.1 [facility] LABORATORY MCH 30.5 27.5 - [facility] 32.1 pg [facility] MCHC 32.9 32.0 - [facility] 35.7 gm/dL [facility] Platelets 255 145 - 357 [facility] x10(3)/[facility] LABORATORY RDWSD 63.5 (H) 36.0 - [place] 45.0 [facility] LABORATORY RDWCV 18.8 (H) 11.4 - [facility] 13.8 % [facility] MPV 8.2 7.6 - 12.9 [facility] LABORATORY nRBC % Auto 0.0 % [facility] LABORATORY nRBC Abs Auto 0.000 0.000 - [facility] 0.000 [facility] x10(3)/[facility] LABORATORY Specimen Anatomical Collection Method Collection Time Receive d Time (Source) Location / / Volume Laterality Blood specimen 06/01/2017 7:28 AM 018 7:39 (specimen) EST AM EST Resulting Agency Comment Spec In Lab Nunu Kincaid MD HEMATOLOGY ORDERABLES Performing Organization Address City/State/[place] [address] (ABNORMAL) Basic Metabolic Panel (non-fasting) (06/01/2017 7:28 AM EST) P athologist Signature Glucose Lvl 124 65 - 199 [facility] mg/dL [facility] Comment: Diabetes: >=200 mg/dL plus symp toms BUN 9 (L) 10 - 20 mg/dL [facility] LABORAT[facility] Creatinine 1.19 0.80 - 1.50 mg/dL [facility] LABORATORY Sodium 136 135 - 145 mmol/L [facility]OR[facility] Potassium 4.3 3.5 - 5.0 mmol/L [facility] Comment: Please note: ??Patients with WBC >100,00 0 may have falsely elevated Potassium levels. ??For accurate Potassium quantif ication in these patients send serum separator tube (gold top) for subsequent determinations. ??Contact the Clinical Chemistry Laboratory if there are any qu estions. Chloride 99 98 - 107 mmol/L [facility] LABORATORY CO2 23 22 - 31 mmol/L [facility] LABOR[facility] Anion Gap 14 5 - 15 mmol/L [facility] LABOR[facility] Calcium 8.6 8.5 - 10.5 mg/dL [facility] LABOR[facility]ORY Estimated GFR >60 >=60 [facility] LABORAT[facility] Comment: The reported eGFR should be multiplied b y 1.2 for patients. The MDRD is not an appropriate measure o f renal function for patients with body mass extremes or in patients with acute kidney failure. http://TapTrack.SageCloud/DHnkdep http://YouAppi/DHMCnkf Specimen Anatomical Collection Method Collection Time Receive d Time (Source) Location / / Volume Laterality Blood specimen 06/01/2017 7:28 AM 018 7:39 (specimen) EST AM EST Resulting Agency Comment Spec In Lab Gilson Mcgee MD CHEMISTRY ORDERABLES Performing Organization Address City/State/[place] [address] Surgical Pathology Report (05/31/2017 1:46 PM EST) Component Value Ref Test Analysis Performed At Patholo gist Range Method Time Signature Surgical [id number] ? Location: 4T; 0403; A [facility] Report The signing pathologist has (i) examined the relevant preparation(s) for the [facility]ORIAL specimen(s) and (ii) rendered or confirmed the diagnosis(es) . HOSPITAL LABORATORY . ?Surgic al Pathology DIAGNOSIS Retroperitoneal abscess, incision and drainage: - Necrosis and abscess formation, see discussion Electronically signed by: ??Alejandro Strong MD Verified: ??06/07/2017 ?Dermatopathologist, Bone & Soft Tissue Pathologist Performed at: ??-[facility] Dept. of Pathology, [place], [place] DISCUSSION Gram special stain does not reveal any gram positive bacteri al organisms. CLINICAL INFORMATION Specimen Submitted: A - Retroperitoneal abscess Clinical History: Intra-abdominal abscess Clinical Diagnosis: Same SPECIMEN PROCESSING A - Labeled/Fixative: Retroperitoneal abscess, fresh. Quantity/Size: Fragments, aggregating 3.7 x 1.5 x 0.8 cm. Tissue Description: Soft, diffluent, nunes-yellow tissue. Sections/Processing: After School Coordinator sections are submitted. (R1) ??pps Specimen (Source) Anatomical Collection Method Collection Time Re ceived Time Location / / Volume Laterality 05/31/2017 1:46 PM EST Gilson Mcgee MD PATHOLOGY/CYTOLOGY ORDERABLE S Performing Organization Address City/[facility] [place] [address] Specimen to Pathology (05/31/2017 1:46 PM EST) Specimen Anatomical Collection Method Collection Time Receive d Time (Source) Location / / Volume Laterality AP Specimen 05/31/2017 1:46 PM 8 1:46 EST PM EST Narrative [facility] LABORAT ORY - 05/31/2017 1:46 PM EST Specimen requisition ordered. ??Separate Pathology report to follow Gilson Mcgee MD PATHOLOGY/CYTOLOGY ORDERABLE S Performing Organization Address City/[facility] Phon e [place] [address] Anaerobic Culture (05/31/2017 1:37 PM EST) [facility] gist Method Time Signature Anaerobic No anaerobic [place] Culture organisms [facility] LABORATORY Specimen Anatomical Collection Method Collection Time Receive d Time (Source) Location / / Volume Laterality Specimen from ABDOMEN / Unknown 05/31/2017 1:37 PM 05/2017 3:48 abscess EST PM EST (specimen) Comment: OR 28 Resulting Agency Comment Spec In Lab Gilson Mcgee MD MICROBIOLOGY - GENERAL ORDER TIAN Performing Organization Address City/[facility]/[place] [address] Abscess/Wound Aspirate Culture (05/31/2017 1:37 PM EST) Component Value Ref Test Analysis Performed At [facility] Range Method Time Signature Abscess/Wound No growth [facility] Aspirate [place] Culture [facility] LABOR[facility]ORY Gram Stain Many White Blood Cells seen M DANIEL No microorganisms seen. [facility] LABORATORY Specimen Anatomical Collection Method Collection Time Receive d Time (Source) Location / / Volume Laterality Specimen from ABDOMEN / Unknown 05/31/2017 1:37 PM 05/2017 3:48 abscess EST PM EST (specimen) Comment: OR 28 Resulting Agency Comment Spec In Lab Gilson Mcgee MD MICROBIOLOGY - GENERAL ORDER TIAN Performing Organization Address City/[facility]/ZIP [facility] Phon e Number [address] EKG 12 Lead (05/31/2017 11:10 AM EST) Component Value Ref Range Test Analysis Performed Pathologis t Method Time At Signature Ventricular rate 100 BPM MUSE SYSTEM Atrial Rate 100 BPM MUSE SYSTEM P-R Interval 170 ms MUSE SYSTEM QRS Duration 90 ms MUSE SYSTEM Q-T Interval 352 ms MUSE SYSTEM QTC Calculated 454 ms MUSE SYSTEM (Bezet) Calculated P Everest 45 degrees MUSE SYSTEM Calculated R Everest 0 degrees MUSE SYSTEM Calculated T Everest 32 degrees MUSE SYSTEM INTERPRETATION Normal sinus [...] SYSTEM documented in this encounter Visit Diagnoses Not on filedocumented in this encounter Administered Medications Inactive Administered Medications - up to 3 most recent administrations Medication Order MAR Action Action Date Dose Rate Site BUpivacaine (PF) Given 05/31/2017 3:06 PM 6 mLs 19- Surgical Site (MARCAINE) 0.5 % (5 EST mg/mL) injection ONCE PRN, Starting on Sat05/31/17 at 1506, Until Sat06/01/17 at 1908, Intra-Operative (Intra-Procedure), Routine ciprofloxacin (CIPRO) tablet 500 mg Given 06/01/2017 9:02 AM EST 500 mg 500 mg, Oral, 2 TIMES DAILY, [...] Provider: Kathy Angeles CRNA) 400 mg, Intravenous, ELECTRONIC TECH TO O.R., 1 dose, Sat05/31/17 at 1245, Administer over 60 Minutes, Indication for (Active or Suspected): Prophylaxis, Restricted Antibiotic: Please indicate the most appropria te choice: Pre-approved Indication (State the indication in Comm ents field) ciprofloxacin (CIPRO) tablet 500 mg 2037 (Given - Provider: Gracia Alicea RN) 0902 (Given - Provider: Patricia norris RN) 500 mg, Oral, 2 TIMES DAILY, First dose on Sat05/31/17 at 2100, Until Discontinued, Routine heparin (Porcine) subcutaneous injection 5,000 Units 0 (Given - Provider: Gracia Kumar RN) 0600 (Given - Provider: Gracia Alicea RN)1350 (Given - Provider: Patricia Rodriguez RN) 5,000 Units, Subcutaneous, EVERY 8 HOURS SCHEDULED, First dose on Sat05/31/17 at 2200, Until Discontinued, Routine metroNIDAZOLE (FLAGYL) 500 mg in sodium chloride 0.9% 100 mL (COMPLETED) 1240 (Given - Provider: Kathy Angeles CRNA) 500 mg, Intravenous, ELECTRONIC TECH TO O.R., 1 dose, Sat05/31/17 at 1230, Administer over 30 Minutes, Indication for (Active or Suspected): Prophylaxis metroNIDAZOLE (FLAGYL) tablet 500 mg 203 8 (Given - Provider: Gracia Alicea RN) 0902 (Given - Provider: Patricia norris, MEET)1605 (Given - Provider: Patricia Rodriguez RN) 500 mg, Oral, 3 TIMES DAILY, First dose on Sat05/31/17 at 2100, Until Discontinued, Routine pantoprazole (PROTONIX) injection 40 mg 2037 (Given - Provider: Gracia Kumar RN) 09 (Given - Provider: Patricia norris, MEET) 40 mg, Intravenous, DAILY, First dose on Sat05/31/17 at 2000, Until Discontinued sodium chloride 0.9 % flush 5 mL 2038 (G iven - Provider: Gracia Alicea RN) 0904 (Given - Provider: Patricia norris, MEET) 5 mL, Intravenous, 2 TIMES DAILY, First [...] mg, Intravenous, EVERY 4 HOURS PRN, Starting Sat05/31/17 at 1940, Until 06/01/17 at 1908, Pain, Use for breakthrough not relieved by tramadol, Routine HYDROmorphone (DILAUDID) injection 0.4-0.6 mg (CANCELED) 1610 (Given - Provider: Jossy Peterson RN)1620 (Given - Provider: Jossy Peterson RN)1645 (Given - Provider: Jossy Peterson RN) 0.4-0.6 [...] Intravenous, EVERY 1 MIN PRN, S tarting 05/31/17 at 1940, Until 06/01/17 at 1908, flush, Flush pertains to all indwelling lines. Flush per protocol found in the job aid using the link provided on this medication record., Routine traMADol (ULTRAM) tablet 50 mg 1605 (Not Given - Provider: Jossy Peterson RN - Reason: Patient/family refused - Comment: patient refused) 50 mg, Oral, EVERY 6 HOURS PRN, Starting 05/31/17 at 1552, Until 06/01/17 at 1908, Pain, Routine Linked Groups Order Group 1: ondansetron (ZOFRAN) tablet 4-8 mgJump to med 4-8 mg, Oral, EVERY 8 HOURS PRN, Startin g 05/31/17 at 1940, Until 06/01/17 at 1908, Nausea, [...] mg, Intravenous, EVERY 8 HOURS PRN, Starting 05/31/17 at 1940, Until 06/01/17 at 1908, Nausea
Start with 4mg and if ineffective in 30 minutes, give an additional 4mg If mult iple antiemetics are ordered, give ondan setron first.
documented in this encounter Care Teams Publicity Agent Relationship Specialty Start Date End Date Odalys Laird MD PCP - General Internal Medicine 04/27/[address] [place] [address] documented as of this encounter
--- OUTSIDE RECORDS SUMMARY | 2022-01-19 01:23 | XMS_ITS | Encounter Summary ---
:1955 Author Organization [facility] [place] [address] Care Team Providers Name Role Phone Odalys Laird MD Primary Care Provider Reason for Visit Reason Comments Other Encounter Details Date Type Department Care Team Description 05/22/2017 Telephone General Surgery at [facility] [place] [phone] Social History Tobacco Use Types Packs/Day Years Used Date Former Smoker Cigarettes 4 22 04/28/1968 - 1 Smokeless Tobacco: Former User Chew Q uit: 04/28/2017 Comments: haven't used chew in a few wee ok Alcohol Use Standard Drinks/Week Comments Yes 0 [...] this encounter Miscellaneous Notes Telephone Encounter - Matilda Patel RN - 05/22/2017 3:53 PM EST Mr. Urena's VNA nurse, Rashmi, calls to report that Daniel has advised them he can't flush his drain. Call to Daniel - he states that his newest drain stopped putting out any fluid about 3 days ago, and since last night he isn't able to flush it. Prior to this, he was getting out over 100cc/day. Hisolder drain is still functioning well, and he notes that output there has increased since his other drain stopped working. He denies any change in abdominal or groin pain, no fevers or chills, no n/v, states nothing has changed except the drain itself. He has an appt on 05/[address] Mcgee and a CT prior. He has issues with transportation (unless he drives himself) but has arranged for those appts. Discussed with Dr. Mcgee - pt to monitor symptoms, call if pain or fever/chills or other changes. Otherwise keep appts for 05/24. Call back to pt, and he agrees with the plan. documented in this encounter Plan of Treatment Not on filedocumented as of this encounter Visit Diagnoses Not on filedocumented in this encounter Care Teams County Engineer Relationship Specialty Start Date End Date Odalys Laird MD PCP - General Internal Medicine 04/27/[address] [place] [address] documented as of this encounter
--- OUTSIDE RECORDS SUMMARY | 2022-01-19 01:23 | XMS_ITS | Encounter Summary ---
:1955 Author Organization [facility] [address] Care Team Providers Name Role Phone Odalys Laird MD Primary Care Provider Reason for Referral Diagnostic Test (Routine) - Closed Specialty Diagnoses / Procedures Referred By Contact Refer red To Contact Radiology Diagnoses Hyperkalemia Julio C Kincaid MD [facility] Rad Ct Scan Procedures CT Abdomen & Pelvis w Contrast [facility] [place] [address] [place] [address] Referral ID Status Reason Start Date Expiration Date Visits V isits Requested Authorized [id number] Closed Specialty 05/20/2017 08/18/2017 1 1 Service Requested Reason for Visit Auth/Cert Specialty Diagnoses / Procedures Referred By Contact Refer red To Contact Diagnoses Abscess INTRA-ABDOMINAL ABCESS- NOT DRAINING Procedures EMERGENCY IPI Referral ID Status Reason Start Date Expiration Date Visits Requ ested Visits Authorized [id number] 1 1 Encounter Details Date Type Department Care Team Description 05/24/[address] [place] [facility] [place] Mcgee MD Hyperkal[place] [address] GENERAL SURGERY [phone] [place], [place] [address] (Wo rk) Social History Tobacco [...] Sig Dispensed Refills Start Date End Date ibuprofen (ADVIL;MOTRIN) Take 1 tablet by 30 tablet 12 05/2706/28/2017 600 mg Tablet mouth every 6 hours as needed for Pain (for MILD pain (1-3)). ciprofloxacin (CIPRO) 500 Take 1 tablet by 56 tablet 0 04/2906/01/2017 mg Tablet mouth 2 times daily for 28 days. metroNIDAZOLE (FLAGYL) 500 Take 1 tablet by 84 tablet 0 06/01/2017 mg Tablet mouth 3 times daily for 28 days. traMADol (ULTRAM) 50 mg Take 1 tablet by 15 tablet 0 201705/27/2017 Tablet mouth every 6 hours as needed for Pain for up to 7 days. documented as of this encounter Plan of Treatment Not on filedocumented as of this encounter Procedures Procedure Name Priority Date/Time Associated Diagnosis Comme nts CT ABDOMEN AND Routine 05/24/2017 4:24 PM Hyperkalemia Results for this PELVIS W CONTRAST EST procedure are in the results section. documented in this encounter Results CT Abdomen & Pelvis w Contrast (05/24/2017 4:24 PM EST) Anatomical Region Laterality Modality Abdomen, Pelvis Computed Tomography Specimen (Source) Anatomical Location Collection Method / Collectio n Time Received Time / Laterality Volume Impressions 05/24/2017 4:52 PM EST Interval marked enlargement of the large left retroperitoneal and left paracolic gutter abscesses with well-positioned pi gtail drains. The left psoas abscess has mildly increased in size and is in angus nuity with the left retroperitoneal abscess. Preliminary report signed by: Jorge Urbano at 05/24/2017 4:47 PM I have personally reviewed the image(s) and the residents interpretation and agree with the findings, Price tapia at 05/24/2017 4:52 PM Narrative 05/24/2017 4:52 PM EST EXAMINATION: ??CT ABDOMEN AND PELVIS W CONTRAST CLINICAL HISTORY: ??P/w abdominal pressu re and retroperitoneal and recently pericolic abscesses, s/p IR drainage, Ev al progression of abscess pockets. TECHNIQUE: CT of the abdomen and pelvis was performed following the intravenous administration of contrast. 120 cc of Om nipaque 350 was given. Oral contrast was administered. COMPARISON: ??Most recent comparison to May 15, 2017 FINDINGS: Lower chest: Linear atelectasis in the l eft base. No residual pleural fluid. Liver: Fanta's lobe. Mildly nodular con tour. No lesion. Bile ducts: Nondilated. Gallbladder: Contracted, multiple gallst ones. Pancreas: Normal attenuation without gato jany dilatation. Spleen: Enlarged measuring 19 cm in cran iocaudal dimension. Adrenals: Several bulky calcifications i n the right adrenal gland. Left adrenal gland abuts the left retroperitoneal col lection. Kidneys: Left kidney is displaced anteri ismael by the left retroperitoneal collection, with phlegmonous material ab utting the lower pole, unchanged. Symmetric size and enhancement. Vasculature: No aneurysm. Splenic, super ior mesenteric and portal veins are patent. Lymph Nodes: No enlarged lymph nodes. Bowel: Enteric contrast is seen througho ut nondilated loops of small bowel. Descending colon displaced anteriorly an d to the left by the large left paracolic abscess. Peritoneum and mesentery: The left retro peritoneal and left paracolic gutter abscesses are in continuity best seen on series 3, image 86 and coronal series 5, image 86. Both of these abscesses hav e enlarged in the interval since May 15, 2017, left retroperitoneal abscess m easures approximately 5.7 x 8.6 x 11.5 cm. The left paracolic gutter abscess me asures approximately 8.2 x 6.5 x 14.9 cm. The pigtail drains in both of these abscesses remained well-positioned along the posterior aspects of the collections . Slight interval increased size of the left psoas abscess measuring 1.7 x 4.4 c m with phlegmonous material extending to the inferior pole of the left kidney. Th e left psoas abscess is also in continuity with the left retroperitoneal abscess. No new abscess. Abdominal wall: Pigtail drains in the le ft flank as described above. The left paracolic gutter extends along the left posterior abdominal wall musculature. Urinary Bladder: Minimally distended. Reproductive organs: Normal. Osseous structures: No osseous destructi on at the level of the left psoas abscess. Procedure Note Price Monae MD - 05/24/2017Form atting of this note might be different from the original. EXAMINATION: CT ABDOMEN AND PELVIS W CON TRAST CLINICAL HISTORY: P/w abdominal pressure and retroperitoneal and recently pericolic abscesses, s/p IR drainage, Ev al progression of abscess pockets. TECHNIQUE: CT of the abdomen and pelvis was performed following the intravenous administration of contrast. 120 cc of Om nipaque 350 was given. Oral contrast was administered. COMPARISON: Most recent comparison to [facility] 2017 FINDINGS: Lower chest: Linear atelectasis in the l eft base. No residual pleural fluid. Liver: Fanta's lobe. Mildly nodular con tour. No lesion. Bile ducts: Nondilated. Gallbladder: Contracted, multiple gallst ones. Pancreas: Normal attenuation without gato jany dilatation. Spleen: Enlarged measuring 19 cm in cran iocaudal dimension. Adrenals: Several bulky calcifications i n the right adrenal gland. Left adrenal gland abuts the left retroperitoneal col lection. Kidneys: Left kidney is displaced anteri ismael by the left retroperitoneal collection, with phlegmonous material ab utting the lower pole, unchanged. Symmetric size and enhancement. Vasculature: No aneurysm. Splenic, super ior mesenteric and portal veins are patent. Lymph Nodes: No enlarged lymph nodes. Bowel: Enteric contrast is seen througho ut nondilated loops of small bowel. Descending colon displaced anteriorly an d to the left by the large left paracolic abscess. Peritoneum and mesentery: The left retro peritoneal and left paracolic gutter abscesses are in continuity best seen on series 3, image 86 and coronal series 5, image 86. Both of these abscesses hav e enlarged in the interval since May 15, 2017, left retroperitoneal abscess m easures approximately 5.7 x 8.6 x 11.5 cm. The left paracolic gutter abscess me asures approximately 8.2 x 6.5 x 14.9 cm. The pigtail drains in both of these abscesses remained well-positioned along the posterior aspects of the collections . Slight interval increased size of the left psoas abscess measuring 1.7 x 4.4 c m with phlegmonous material extending to the inferior pole of the left kidney. Th e left psoas abscess is also in continuity with the left retroperitoneal abscess. No new abscess. Abdominal wall: Pigtail drains in the le ft flank as described above. The left paracolic gutter extends along the left posterior abdominal wall musculature. Urinary Bladder: Minimally distended. Reproductive organs: Normal. Osseous structures: No osseous destructi on at the level of the left psoas abscess. IMPRESSION Interval marked enlargement of the large left retroperitoneal and left paracolic gutter abscesses with well-positioned pi gtail drains. The left psoas abscess has mildly increased in size and is in angus nuity with the left retroperitoneal abscess. Preliminary report signed by: Jorge Urbano at 05/24/2017 4:47 PM I have personally reviewed the image(s) and the residents interpretation and agree with the findings, Price Martinez s at 05/24/2017 4:52 PM Gilson Mcgee MD IMG CT ORDERABLES documented in this encounter Visit Diagnoses Diagnosis Hyperkalemia Hyperpotassemia documented in this encounter Administered Medications Inactive Administered Medications - up to 3 most recent administrations Medication Order MAR Action Action Date Dose Rate Site iohexol (OMNIPAQUE) 350 mg/mL Given 05/24/2017 4:14 PM EST 120 m Ls solution 0-200 mL 0-200 mL, Intravenous, ONCE PRN, 1 dose, Starting on Sat05/24/17 at 1613, Until Sat05/24/17 at 1614, Per Protocol, Warning Vesicant/Irritant Medication , Radiology Contrast, Routine documented in this encounter Care Teams Sliver Cutter Relationship Specialty Start Date End Date Odalys Laird MD PCP - General Internal Medicine 04/27/17 [address] [place] [address] documented as of this encounter
--- OUTSIDE RECORDS SUMMARY | 2022-01-19 01:23 | XMS_ITS | Encounter Summary ---
:1955 Author Organization [facility] [place] [address] Care Team Providers Name Role Phone Odalys Laird MD Primary Care Provider Reason for Referral Diagnostic Test (Routine) - Closed Specialty Diagnoses / Procedures Referred By Contact Refer red To Contact Radiology Diagnoses Abscess Marlon Multani [facility] Interventionl Rad Procedures IR Drain Check/Change/Remove MD Angela [facility] [place] [address] [place] [address] Referral ID Status Reason Start Date Expiration Date Visits V isits Requested Authorized [id number] Closed Specialty 05/24/2017 05/24/2018 1 1 Service Requested Encounter Details Date Type Department Care Team Description 05/24/2017 Orders Only Radiology at [facility] [place] Marlon Multani Abscess [facility] [place] [address] [facility] [phone] RADIOLOGY DEPT [place], [place] [address] (Wo rk) Social History Tobacco [...] Not on filedocumented as of this encounter Results IR Drain Check/Change/Remove (05/28/2017 2:54 PM EST) Anatomical Region Laterality Modality Head X-Ray Angiography Specimen (Source) Anatomical Location Collection Method / Collectio n Time Received Time / Laterality Volume Narrative 05/28/2017 6:20 PM EST VASCULAR AND INTERVENTIONAL RADIOLOGY PROCEDURE NOTE Procedure: Abdominal and retroperitoneal drain check and replacement Indication for Procedure: Abdominal and retroperitoneal abscesses, decreased drain output and leakage from drain hubs Technique: Prior to beginning the proced ure, a standard time out Moment of Truth was performed to confirm all k ey aspects (including the patient's identity, informed consent, ok dical record number, allergies, planned procedure and laterality if appr opriate) all of which were correct. The patient was positioned righ t lateral decubitus on the procedure table. The abdominal and retro peritoneal drains and surrounding skin were prepped and draped. Maximal st erile barrier technique was used throughout the procedure. Lacrosse Player image was obtained. The retroperit degroot drain was aspirated and then flushed with less than 10cc of normal sa line. Under fluoroscopy, contrast was then injected through the retroperit degroot drainage catheter. After confirming positioning, the drain was th en exchanged over a wire for a new 12 Fr drain. Drain position was confirme d with fluoroscopy and secured in place to the existing stay suture. The c atheter was flushed with normal saline and placed back to bag drainage. Subsequently, the abdominal drain was inspected and replaced in a similar fashion. Medications: Lidocaine topical jelly Contrast: 10 mL Omnipaque 350 used; 40 m L discarded. ?? Fluoroscopy Time: 4.70 mins EBL: 0 cc Complications: No immediate Findings: 1) The abdominal and retroperitoneal holly ins were noted to be in appropriate position. 2) Both drains were noted to be broken/c racked at the external hub. There was leakage of saline around the hub at the time of flushing. 3) Approximately 50cc and 15cc of tannis h brown purulent material aspirated from the retroperitoneal and a bdominal collections respectively. 4) Collections appear to have a mixed so lid and fluid component, the solid component caused partial occlusion of th e abdominal drain, which subsequently resolved with intra-procedu re flushing and repositioning. Impression: Abdominal and retroperitonea l drains broken at external hub less than 24 hours following most recent exchange. Both drains successfully exchanged with new [address] mann. Plan/Disposition: 1) To Angio recovery room, may discharge to home when meets criteria. 2) Both drains to bag drainage. 3) Monitor/Record output. 4) Routine dressing changes per RN alee col. 5) Follow up as outpatient for drain jeannie ck in approximately 2 weeks. (Order entered and IR scheduler conveyor notified .) Supervisor Pressing Department(s): Resident/Fellow: Angle Mayer MD (PGY 2) Attending: Dr. Brenner I, Dr. Brenner, was present and scrubb ed for the entire procedure. Sumeet Salinas MD IMG IR ORDERABLES documented in this encounter Visit Diagnoses Diagnosis Abscess Cellulitis and abscess of unspecified si te Abscess Cellulitis and abscess of unspecified si te documented in this encounter Care Teams Senior Sas Programmer Relationship Specialty Start Date End Date Odalys Laird MD PCP - General Internal Medicine 04/27/[address] [place] [address] [address] [facility] [address] [place] [address] documented as of this encounter
--- OUTSIDE RECORDS SUMMARY | 2022-01-19 01:23 | XMS_ITS | Encounter Summary ---
:1955 [place] [address] Care Team Providers Name Role Phone Odalys [...] Expiration Date Visits Requ ested Visits Authorized [id number] 1 1 Encounter Details Date Type Department Care Team Description 05/31/2017 Anesthesia Event Main Operating Room Skip Woodson nd, MD [facility] [place] [address] [place] [address] [phone] Anesthesia Record Procedure Summary Procedure Name Responsible Anesthesia Start Anesthesia Stop Time Anesthesiologist Time Keturah SHETH Marc L, MD 05/31/17 1211 05/31/17 15 11 DRAINAGE ABD ABSCESS (WRVU *) (N/A Abdomen) Events Date Time Event Comment 05/31/2017 1147 1210 AN Verify 1211 Start 1216 An Start Data 1219 An Induction 1223 An Intubation 1240 Anesthesia Ready 1254 Procedure Start 1317 Break/Relief In TORI MURRIETA MIDT, MAGNETO SPECIALIST 1328 Break/Relief Out 1505 Extubation/LMA Out 1505 an stop data 1510 Recovery or ICU Handoff Patient care was transferred to the destination unit staff after review of the patient's medica l history, current anesthetic/surgi flores status and plan, according to the Provider Handoff Checklist. 1511 Stop Name Total fentaNYL 100 mcg IV Lidocaine 20 mg Propofol 320 mg Rocuronium 50 mg PHENYLephrine 600 mcg Ondansetron 8 mg Propofol INF 485 mg metroNIDAZOLE (FLAGYL) 500 mg in sodium chloride 0.9% 100 mL 1,000 mg ciprofloxacin (CIPRO) 400mg in dextrose 5% 200mL 400 m g Lidocaine 4% LTA 2 mL Ketorolac 30 mg lactated Ringers infusion 1,000 mL 900 mL Agents Name O2 Air N2O Sevoflurane (et) Blood No blood administrations on file. Lines, Drains, and Airways Type Details Placement Removal Drain/Device Site 05/28/17; 1411; Left; 05/28/17 1411 by posterior; flank; Aly Welsh, MEET gravity; Dr. Brenner; Sterile prep and drape; Lidocaine 1%; #12 Fr. All purpose drain to collection bag. ; Drain exchange due to cracked hub. Drain/Device Site 05/28/17; 1412; Left; 05/28/17 1412 by 8 1514 by anterior; gravity; Aly Morales, Leslie Clemente RN Percarpio; Lidocaine 1%; (#12 Fr. all purpose drain); #12 Fr. all purpose drain to collection bag; Drain exchange.; 06/10/17; 1514 PIV 05/31/17; 1138; median 05/31/17 1138 by 06/01/17 1646 by vein (underside of arm), Magan Samano RN Ber geron, Elizabeth right; [id number] Ez, RN catheter system; 20 gauge, 1 in length; Caesar Samano RN; distraction, intradermal injection, tolerated well, appears comfortable; no longer indicated; 06/01/17; 1646 ETT Mask Ventilation: Adjunct 05/31/17 1228 by 05/31 1505 by (2); ETT Type: Cuffed, Kathy Angeles, Kathy Paredes CRNA Oral; ETT Size: 8 mm; Indirect:Video; Notes: Asleep, Pre-O2, Stylette; Attempts: 2; Laryngoscopy Grade: 2; ETT Placement Verified By: Auscultation, Capnometry, Visual; Secured at Teeth: 22 cm; Inserted by: tom BARBOZA 05/31/17; 1248; 05/31/17 1248 by 06/01/17 1329 b y metacarpal vein (top of Kathy Angeles, Patricia Vasquez), left; C, RN [id number] catheter system; 18 gauge; keturah; no longer indicated; 06/01/17; 1329 Incision 05/31/17; 1309; abdomen; 05/31/17 1309 by 1208 by 06/11/17; 1208 Keena Galo Ky le N, RN A, RN Drain/Device Site 05/31/17; 1400; Left; 05/31/17 1400 by 8 1208 by lower; abdomen; gravity; Patricia Rodriguez Kyle N RN 06/11/17; 1208 C, RN Drain/Device Site 05/31/17; 1429; Left; 05/31/17 1429 by 8 1207 by lower; abdomen (# 2); Keena Galo Kyle N RN collapsible closed device A, RN (19 Fr Ameya); 06/11/17; 1207 Drain/Device Site 05/31/17; 1439; Left; 05/31/17 1439 by 8 1207 by lower; abdomen (#1); Keena Galo Kyle N, RN collapsible closed device A, RN (19 Ameya); 06/11/17; 1207 documented in this encounter Social History Tobacco [...] encounter OR Notes Anesthesia Postprocedure Evaluation - Skip Adorno MD - 05/31/2017 3:34 PM EST [facility] Department of Anesthesiology Post-procedure Note Patient: Daniel Urena Procedure Summary Date Anesthesia Start Anesthesia Stop Room / Location 05/31/17 1211 1511 [facility] OR 28 / [facility] MAIN OR Procedure Diagnosis Surgeon Responsible Provider LAPAROSCOPY, DRAINAGE ABD ABSCESS (WRVU *) (N/A Abdomen); LAPAROSCOPY, TUMOR EXCISION, RETROPERITONEAL (WRVU *) (N/A Abdomen) (INTRA-ABDOMINAL ABSCESS) Gilson Mcgee MD Bertrand, Marc L, MD All Anesthesia Providers: Anesthesiologist: Skip Adorno MD MAGNETO SPECIALIST: Kathy Angeles CRNA Most Recent Vitals: 05/31/17 1508 BP: 110/70 Pulse: 91 Resp: 12 Temp: 36.8 ??C (98.2 ??F) SpO2: 96% Pain Patient Location: PACU/[facility] Level of Consciousness: Conscious but Sleepy Pain Management: Satisfactory Analgesia PONV: None Cardiovascular Status: At Baseline Respiratory Status: At Baseline Postoperative Fluid Status: Intravascular EUvolemia Possible Anesthetic Complications: NONE apparent at time of evaluation Final Primary Anesthesia Type: General (The anesthetic type performed was the same as planned.) Comments: Anesthesia Preprocedure Evaluation - Skip Adorno MD - 05/31/2017 11:08 AM EST Pre-Anesthesia Evaluation for: Daniel Urena a 61 y.o. male. Procedure(s): LAPAROSCOPY, DIAGNOSTIC, ABDOMEN (WRVU 5.14) LAPAROSCOPY, DRAINAGE ABD ABSCESS (WRVU *) Patient Active Problem List Diagnosis ??? Abscess ??? Intra-abdominal abscess ??? Retroperitoneal abscess Past Medical History: Diagnosis Date ??? HTN (hypertension) ??? Obesity Past Surgical History: Procedure Laterality Date ??? ORCHIOPEXY Left Social History Substance Use Topics ??? Smoking status: Former Smoker Packs/day: 4.00 Years: 22.00 Types: Cigarettes Start date: 04/28/1968 Quit date: 04/28/1986 ??? Smokeless tobacco: Former User Types: Chew Quit date: 04/28/2017 Comment: haven't used chew in a few weeks ??? Alcohol use Yes Comment: occasional History Drug Use No Allergies Allergen Reactions ??? Tylenol [Acetaminophen] Causes acid reflux Medications: MAR and/or home medications have been reviewed. Physical Exam: Most Recent Vitals: 05/31/17 1104 Temp: 36.4 ??C (97.5 ??F) There is no height or weight on file to calculate BMI. Airway Assessment: Mallampati: I TM distance: >3 FB Neck ROM: full Cardiovascular Assessment: Rhythm: regular (-) murmur Pulmonary Assessment: Dental Assessment: (+) upper dentures Misc Assessment: IV access: Peripheral line Other exam findings: 20 g IV right forearm. Runs well w/o complaint Anesthesia Plan: ASA 3 general, with a(n) intravenous induction 61 yro with retroperitoneal and left abdominal abscesses of unknown etiology. S/P IR drainage but recent scan showed increase in size now presenting for exploratory laparoscopy and abscess drainage. PMHx notable for morbid obesity and HTN. Denies recent URI, f/s/c, GERD, asthma/breathing problems, cardiac Hx, DM or Sz. No prior expereince with anesthesia. No known Hx anesthesia-related concerns. NPO status appropriate. Plan: GA/ETT, LLD position w/dudley bag, standard monitors. Region - Other Informed Consent: Anesthetic plan and risks discussed with patient. Use of blood products discussed with patient who consented to blood products. Plan discussed with ANJALI. PAT Staff Note documented in this encounter Miscellaneous Notes Addendum Note - Kathy Angeles CRNA - 05/31/2017 3:35 PM EST Addendum created 05/31/17 5478 by Kathy Angeles CRNA Anesthesia Intra Meds edited documented in this encounter Plan of Treatment Not on filedocumented as of this encounter Visit Diagnoses Not on filedocumented in this encounter Administered Medications Inactive Administered Medications - up to 3 most recent administrations Medication Order MAR Action Action Date Dose Rate Site ciprofloxacin (CIPRO) 400mg in Given 05/31/2017 12:40 PM EST 400 mg dextrose 5% 200mL 400 mg, Intravenous, CONCRETE RUBBER TO O.R., 1 dose, On Sat05/31/17 at 1245, Administer over 60 Minutes, Indication for (Active or Suspected): Prophylaxis, Restricted Antibiotic: Please indicate the most appropriate choice: Pre-approved Indication (State the indication in Comments field) fentaNYL 50 mcg/mL multi-dose injection Given 05/31/2017 1:45 PM EST 50 mcg PRN, Starting on Sat05/31/17 at 1219, Until Sat05/31/17 at 1533, Pain, Anesthesia Intra-op, Routine Given 05/31/2017 12:19 PM EST 50 mcg ketorolac (TORADOL) injection Given 05/31/2017 2:51 PM EST 30 mg PRN, Starting on Sat05/31/17 at 1451, Until Sat05/31/17 at 1533, Pain, Anesthesia Intra-op, Routine lactated Ringers infusion 1,000 mL New Bag 05/31/2017 12:11 PM EST 1,000 mL, at 100 mL/hr, Intravenous, CONTINUOUS, Starting on Sat05/31/17 at 1115, Until Sat05/31/17 at 1552, Day of Surgery (Day of Procedure) lidocaine (PF) (XYLOCAINE) 100 mg/5 mL (2 %) Given 05/2017 12:19 PM EST 20 mg injection PRN, Starting on Sat05/31/17 at 1219, Until Sat05/31/17 at 1533, Anesthesia Intra-op, Routine lidocaine (XYLOCAINE) 4 % external solut ion Given 05/31/2017 12:23 PM EST 2 mLs PRN, Starting on Sat05/31/17 at 1223, Until Sat05/31/17 at 1533, Anesthesia Intra-op metroNIDAZOLE (FLAGYL) 500 mg in sodium Given 05/31/2017 12:40 P M EST 1,000 mg chloride 0.9% 100 mL 500 mg, Intravenous, CONCRETE RUBBER TO O.R., 1 dose, On Sat05/31/17 at 1230, Administer over 30 Minutes, Indication for (Active or Suspected): Prophylaxis ondansetron (ZOFRAN) injection Given 05/31/2017 2:15 PM EST 8 mg PRN, Starting on Sat05/31/17 at 1415, Until Sat05/31/17 at 1533, Nausea, Anesthesia Intra-op, Routine PHENYLephrine in NS (PF) (VERITO-SYNEPHRINE) Given 05/31/2017 1:45 PM EST 120 mcg 0.8 mg/10 mL (80 mcg/mL) multi-dose injection Syrg PRN, Starting on Sat05/31/17 at 1245, Until Sat05/31/17 at 1533, Anesthesia Intra-op, Routine Given 05/31/2017 1:39 PM EST 80 mcg Given 05/31/2017 1:28 PM EST 80 mcg propofol (DIPRIVAN) 10 mg/mL bolus injection Given 8 1:45 PM EST 20 mg (Anesthesia) PRN, Starting on Sat05/31/17 at 1219, Until Sat05/31/17 at 1533, Anesthesia Intra-op Given 05/31/2017 12:19 PM EST 300 mg propofol (DIPRIVAN) Rate/Dose Change 05/31/2017 12:45 25 mcg/kg/min 1 5 mL/hr infusion PM EST CONTINUOUS PRN, Starting on Sat05/31/17 at 1219, Until Sat05/31/17 at 1533, Anesthesia Intra-op, Routine Rate/Dose Change 05/31/2017 12:30 PM EST 50 mcg/kg/min 30 mL/hr New Bag 05/31/2017 12:19 PM EST 100 mcg/kg/min 60 mL/hr rocuronium (ZEMURON) multi-dose injectio n Given 05/31/2017 12:19 PM EST 50 mg PRN, Starting on Sat05/31/17 at 1219, Until Sat05/31/17 at 1533, Anesthesia Intra-op, Routine documented in this encounter Care Teams Supervisor Sanding Relationship Specialty Start Date End Date Odalys Laird MD PCP - General Internal Medicine 04/27/[address] [place] [address] [address] [place] [address] documented as of this encounter
--- OUTSIDE RECORDS SUMMARY | 2022-01-19 01:23 | XMS_ITS | Encounter Summary ---
:1955 Author Organization [facility] [place] [address] Care Team Providers Name Role Phone Odalys Laird MD Primary Care Provider Encounter Details Date Type Department Care Team Description 05/28/2017 Orders Only [place] [facility] [place]le Mayer MD Abdominal abscess [facility] [place] [address] RADIOLOGY DEPT [place], [place] [address] (Wo rk) Social History Tobacco Use Types Packs/Day Years Used Date Former Smoker Cigarettes 4 22 04/28/1968 - 1 Smokeless Tobacco: Former User Chew Q uit: 04/28/2017 Comments: haven't used chew in a few wee ga Alcohol Use Standard Drinks/Week Comments Yes 0 [...] as of this encounter Visit Diagnoses Diagnosis Abdominal abscess Peritoneal abscess documented in this encounter Care Teams Jig Boring Machine Set Up Operator Relationship Specialty Start Date End Date Odalys Laird MD PCP - General Internal Medicine 04/27/[address] [place] [address] documented as of this encounter
--- OUTSIDE RECORDS SUMMARY | 2022-01-19 01:23 | XMS_ITS | Encounter Summary ---
:1955 Author Organization [facility] [place] [address] Care Team Providers Name Role Phone Odalys Laird MD Primary Care Provider Reason for Referral Diagnostic Test (Routine) - Closed Specialty Diagnoses / Procedures Referred By Contact Refer red To Contact Radiology Diagnoses Abscess Marlon Multani Interventionl Rad Procedures IR Drain Check/Change[place] [address] [place] [address] Referral ID Status Reason Start Date Expiration Date Visits V isits Requested Authorized [id number] Closed Specialty 05/24/2017 05/24/2018 1 1 Service Requested Reason for Visit Diagnostic Test (Routine) - Closed Specialty Diagnoses / Procedures Referred By Contact Refer red To Contact Radiology Diagnoses Abscess Marlon Multani Interventionl Rad Procedures IR Drain Check/[place] [address] [place] [address] Referral ID Status Reason Start Date Expiration Date Visits V isits Requested Authorized [id number] Closed Specialty 05/24/2017 05/24/2018 1 1 Service Requested Encounter Details Date Type Department Care Team Description 05/28/2017 Hospital Encounter Radiology at [facility] [place] Sumeet Salinas MD Abscess Formerly [address] [place] [address] DIAGNOSTIC RADIOLOGY [phone] CLAUDIA POWERS [phone] (Wo rk) Social History Tobacco Use [...] Sign Reading Time Taken Comments Blood Pressure 110/72 05/28/2017 3:00 PM EST Pulse 98 05/28/2017 3:00 PM EST Temperature 36.4 ??C (97.6 ??F) 05/28/2017 2:52 PM EST Respiratory Rate 18 05/28/2017 3:00 PM EST Oxygen Saturation 95% 05/28/2017 3:00 PM EST Inhaled Oxygen Concentration - - Weight - - Height - - Body Mass Index - - documented in this encounter Discharge Instructions Discharge InstructionsTeCarmelina nash RN - 05/28/2017 2:54 PM EST INTERVENTIONAL RADIOLOGY DRAIN CARE INSTRUCTIONS Drains help to keep fluid from collecting by removing the extra blood and fluid from under the skin or from an abscess within the body. A drain is temporary. It stays in place until the drainage has slowed down or stopped. Your Provider will decide when each drain should be removed. This is usually after each drain has 30cc or less in 24 hours for 2-3 days in a row. You will then be scheduled for what is called a Sinogram to check and see if the fluid collection has gotten smaller. How do I care for the drains at home? Pin your drain/s to your clothing by using a safety pin through the plastic loop on the top of the bulb. If the drain is not attached to your clothing, it may pullout from under your skin. Also, a drain usually feels more comfortable when it???s attached. To carefor the drain at home, you will have to empty the drain, ???strip?? the drain tubing, and change the dressing if applicable. * See the following information on instructions on how to do this. ??? No drainage or sudden decrease in amount of drainage- This may be due to a plug in the drain. Please notify your doctor or nurse during business hours. ??? The tube accidentally falls out- If [...] and keep the dressing clean and dry. How to Empty Your Drain Note: Wash your hands thoroughly before emptying your drain(s). Unpin the drain from your clothing. 1. Remove the green cap on the end of the drain bag. 2. Have the plastic measuring cup from the hospital ready to collect and measure the drainage. Please measure the output at the same time every 24 hours and record the amount. 3. Replace the cap. 4. Flush the contents in the toilet. 5. Use the drain output log chart to record the amount of drainage. Record the total for 24 hours for each drain you have. If you have more than one drain, remember to record the drainage from each drain separately. To prevent infection, do not let the stopper or top of the bottle touch the measuring cup or any other surface. 6. Pin the drain back on your clothing to avoid pulling it out accidentally. 7. Wash your hands again. Remember to wash your hands before and after the procedure to reduce the risk of infection. Do NOT Flush the drain. When to call the Interventional Radiology Department: Please call with any questions or concerns. Ifit is during regular office hours, please call [phone]. If it is after regular office hours, oron weekends or holidays, please call [phone] and ask to speak to the Chiropractic Neurologist on callfor Interventional Radiology. Revised 05/13/15 Drainage Record NAME: Date of Surgery: Date: Time: If more than one drain, which one: Drainage Amount (per drain) Total Amount (per drain; in 24 hours) documented in this encounter Medications at Time [...] mouth 3 times daily for 28 days. documented as of this encounter Progress Notes Aly Welsh RN - 05/28/2017 1:52 PM EST 1347 To procedure room via stretcher. Onto table in the right lateral position. 2% lidocaine per protocol. Aly Welsh RN - 05/28/2017 12:53 PM EST ANGIO NURSING DATABASE Name: DANIEL CRUZ Date of : 1955 AGE 61 y.o. Address: [address] [address] (home) Mobile: Telephone Information: Referring Provider: Marlon Multani REASON FOR VISIT: Daniel Cruz??is a 61 y.o.??male??with hx of morbid obesity, HTN, initially presented on 04/27 with retroperitoneal abscess, underwent IR drainage on 04/27. Had repeat imaging on 05/10 showing new abdominal collection along with persistent retroperitoneal collection. Abdominal colle ction was drained on 05/11. Patient presented to surgery clinic on 05/24 with report of decreasing drain output (primarily abdominal, also retroperitoneal) and LLQ pressure Reason for exam and clinical history: Decreased output from drains with increasing size of abscesses Exam/Procedure requested: Drain checks/replacements (Assessment/plan from provider's note, bottom of workup) Copy/paste from provider's note (for all CT's) Assessment: ??61 y.o.??male??w/left retroperitoneal and left abdominal abscesses s/p drain placementnow presenting for recurrent cracked drain hubs and leaking. ?? Plan:??IR drain replacements ?Labs to be performed day of procedure: Current ?Medication to STOP: None ?Sedation: minimal (single agent only) ?Prophylactic antibiotic: None ?Additional medications for procedure: None ?Planned access site: Left abdomen ?Position: Supine ?Consent: Pending Anticoagulant/antiplatelet/herbal med. stopped on per MD order. Allergies Allergen Reactions ??? Tylenol [Acetaminophen] Causes acid reflux Pertinent PMH: Patient Active Problem List Diagnosis Code ??? Retroperitoneal abscess K68.19 ??? Intra-abdominal abscess K65.1 ??? Abscess L02.91 Pertinent PSH: Past Surgical History: Procedure Laterality Date ??? ORCHIOPEXY Left Date/Procedure Meds given/comments 04/27/17 CT Guided Drain Retroperitoneal Placement for Abscess Fentanyl 175 mcg IV ??05/02/16 Upsize drain to 12.5 Fentanyl 100 mcg iv 05/10/17 CT Abscess drain #2, abdomen?? Fentanyl 150 mcg IV, Versed 2 mg IV 05/25/17 Sinogram L retroperitoneal and L lateral drains.? Fentanyl 75 Mcg IV, lido jelly 2%; tolerated well? 05/27/17 Sinogram and exchange of L retroperitoneal and L lateral drains. Lidocaine Jelly 2%? 05/28/2017 Pt. Arrived with ends of both drainage tubes cracked and leaking. Peritoneal drain tubes change Lidocaine Jelly 2%- Pt. Had driven himself. Laboratory Results: Lab Results Component Value Date INR 1.1 05/10/2017 Lab Results Component Value Date CREATININE 0.92 05/27/2017 Lab Results Component Value Date K 4.1 05/27/2017 Lab Results Component Value Date PLATELET 237 05/27/2017 Medications: Prior to Admission medications Medication Sig Start Date End Date Taking? Authorizing Provider ibuprofen (ADVIL;MOTRIN) 600 mg Tablet Take 1 tablet by mouth every 6 hours as needed for Pain (for MILD pain (1-3)). 05/27/17 Julio C Kincaid MD ciprofloxacin (CIPRO) 500 mg Tablet Take 1 tablet by mouth 2 times daily for 28 days. 05/16/17 06/13/17 Julio C Kincaid MD metroNIDAZOLE (FLAGYL) 500 mg Tablet Take 1 tablet by mouth 3 times daily for 28 days. 05/16/17 06/13/17 Julio C Kincaid MD Jose Miguel Loriestan, HERBARIUM WORKER - 05/28/2017 9:42 AM EST Images from the original note were not included. INTERVENTIONAL RADIOLOGY ?? FOCUSED H&P and PRE-PROCEDURE NOTE: ?? PCP: Odalys Laird MD Referring Provider: No ref. provider found Planned Procedure: Drain check and replacement (x 2) Procedure Indication: Drain hubs reportedly cracked ?? Presenting Diagnosis/ Complaint: Daniel Cruz is a 61 y.o. male with hx of morbid obesity, HTN, initially presented on 04/27 with retroperitoneal abscess, underwent IR drainage on 04/27. Had repeat imaging on 05/10 showing new abdominal collection along with persistent retroperitoneal collection. Abdominal collection was drained on 05/11. Patient presented to surgery clinic on 05/24 with report of decreasing drain output (primarily abdominal, also retroperitoneal) and LLQ pressure. ?? Now with drains cracked at hubs. ?? Plan for check of both retroperitoneal and abdominal drains and replacement. ?? 04/27/17 - CT-guided retroperitoneal abscess drain placed (10 Fr locking pigtail) ?? 05/02/17 - Left retroperitoneal drain exchange, upsized to 12 Fr ?? 05/10/17 - CT-guided left paracolic abscess drain placement, 10 Fr locking loop ?? 05/25/17 - Both drains swapped to 12 Fr 05/27/17- Both drains swapped for 12Fr (hibs cracked0. Patient called this morning reporting bilateral tube hubs are cracked and leaking. ?? Past Medical/Surgical History: Patient Active Problem List Diagnosis Code ??? Retroperitoneal abscess K68.19 ??? Intra-abdominal abscess K65.1 ??? Abscess L02.91 ?? Past Medical History Past Medical History: Diagnosis Date ??? HTN (hypertension) ? Obesity ? Past Surgical History Past Surgical History: Procedure Laterality Date ??? ORCHIOPEXY Left ? Medications: No current facility-administered medications on file prior to encounter. ?? Current Outpatient Prescriptions on File Prior to Encounter Medication Sig Dispense Refill ??? ciprofloxacin (CIPRO) 500 mg Tablet Take 1 tablet by mouth 2 times daily for 28 days. 56 tablet 0 ??? metroNIDAZOLE (FLAGYL) 500 mg Tablet Take 1 tablet by mouth 3 times daily for 28 days. 84 tablet0 ?? Allergies: Tylenol [acetaminophen] ?? Social History and Habits: Social History Social History ?? Social History ??? Marital status: ? Spouse name: N/A ??? Number of children: N/A ??? Years of education: N/A ?? Occupational History ??? Not on file. ?? Social History Main Topics ??? Smoking status: Former Smoker ? Packs/day: 4.00 ? Years: 22.00 ? Types: Cigarettes ? Start date: 04/28/1968 ? Quit date: 04/28/1986 ??? Smokeless tobacco: Former User ? Types: Chew ? Quit date: 04/28/2017 ? Comment: haven't used chew in a few weeks ??? Alcohol use Yes ? Comment: occasional ??? Drug use: No ??? Sexual activity: No ?? Other Topics Concern ??? Not on file ?? Social History Narrative ?? Significant Family History: Family History No family history on file. ?? Pertinent ROS: as per HPI ?? Labs: Lab Results Component Value Date ?? WBC 5.1 05/27/2017 ?? HCT 30.9 (L) 05/27/2017 ?? PLATELET 237 05/27/2017 ?? INR 1.1 05/10/2017 ?? BUN 10 05/27/2017 ?? CREATININE 0.92 05/27/2017 ?? ALKPHOS 95 04/27/2017 ?? AST 15 04/27/2017 ?? ALBUMIN 2.9 (L) 04/27/2017 ?? BILITOT 0.8 04/27/2017 ?? ALT 11 04/27/2017 ?? PROT 7.9 04/27/2017 ? Imaging: ? Assessment: 61 y.o. male w/left retroperitoneal and left abdominal abscesses s/p drain placement nowpresenting for recurrent cracked drain hubs and leaking. ?? Plan: IR drain replacements ?? Labs to be performed day of procedure: Current Medication to STOP: None Sedation: minimal (single agent only) Prophylactic antibiotic: None Additional medications for procedure: None Planned access site: Left abdomen Position: Supine Consent: Pending ?? documented in this encounter Plan of Treatment Not on filedocumented as of this encounter Procedures Procedure Name Priority Date/Time Associated Diagnosis Comme nts IR DRAIN Routine 05/28/2017 2:54 PM Abscess Results f or this CHECK/CHANGE/REMOVE EST procedur e are in the results section. documented in this encounter Results IR Drain Check/Change/Remove (05/28/2017 [...] aspects (including the patient's identity, informed consent, ms dical record number, allergies, planned procedure and laterality if appr opriate) all of which were correct. The patient was positioned righ t lateral decubitus on the procedure table. The abdominal and retro peritoneal drains and surrounding skin were prepped and draped. Maximal st erile barrier technique was used throughout the procedure. Associate Product Manager image was obtained. The retroperit degroot drain [...] approximately 2 weeks. (Order entered and IR powertrain control systems engineer notified .) Licensed Life And Health Agent(s): Resident/Fellow: Angle Mayer MD (PGY 2) Attending: Dr. Brenner I, Dr. Brenner, was present and scrubb ed for the entire procedure. Sumeet Salinas MD IMG IR ORDERABLES documented in this encounter Visit Diagnoses Diagnosis Abscess Cellulitis and abscess of unspecified si te documented in this encounter Administered Medications Inactive Administered Medications - up to 3 most recent administrations Medication Order MAR Action Action Date Dose Rate Site iohexol (OMNIPAQUE) 350 mg/mL Given 05/28/2017 2:42 PM EST 20 mL s solution 50 mL 50 mL, Other, ONCE PRN, 1 dose, Starting on Tu05/28/17 at 1417, Until Tu05/28/17 at 1442, Per Protocol, Warning Vesicant/Irritant Medication , Routine lidocaine (XYLOCAINE) 2 % jelly Given 05/28/2017 1:45 PM EST 1 Bottle Topical (Top), EVERY 4 HOURS PRN, Pain, Starting on Sat05/28/17 at 1328, Until Sat05/28/17 at 1409, For use in Interventional Radiology (IR) only for procedure with direct provider supervision and verbal order., Angio/IR (Intra-Procedure) documented in this encounter Care Teams Bass Singer Relationship Specialty Start Date End Date Odalys Laird MD PCP - General Internal Medicine 04/27/[address] [place] [address] [address] [place] [address] documented as of this encounter
--- OUTSIDE RECORDS SUMMARY | 2022-01-19 01:23 | XMS_ITS | Encounter Summary ---
:1955 [place] [address] Care Team Providers Name Role Phone Odalys Laird MD Primary Care Provider Reason for Visit Auth/Cert Specialty Diagnoses / Procedures Referred By Contact Refer red To Contact Diagnoses Abscess INTRA-ABDOMINAL ABCESS- NOT DRAINING Procedures EMERGENCY IPI Referral ID Status Reason Start Date Expiration Date Visits Requ ested Visits Authorized [id number] 1 1 Encounter Details Date Type Department Care Team Description 05/24/2017 - Hospital 4 [facility] Gilson Mcgee, Intra-abdomi nal abscess; 05/27/2017 Encounter Destiny Mccoy MD Retroperitoneal abscess [facility] [address] [place] [id number] [phone] Social History Tobacco Use Types Packs/Day Years [...] Sign Reading Time Taken Comments Blood Pressure 92/64 05/27/2017 5:15 PM Lying on righ t side. EST Pulse 96 05/27/2017 4:12 AM EST Temperature 36.7 ??C (98.1 ??F) 05/27/2017 3:41 PM EST Respiratory Rate 18 05/27/2017 5:15 PM EST Oxygen Saturation 93% 05/27/2017 5:15 PM EST Inhaled Oxygen - - Concentration Weight 155.1 kg (342 lb) 05/24/2017 7:59 PM EST Height 175.3 cm (5' 9) 05/24/2017 7:59 PM EST Body Mass Index 50.5 05/24/2017 7:59 PM EST documented in this encounter Discharge Summaries Nunu Kincaid - 05/27/2017 12:38 PM EST Images from the original note were not included. COMMUNITY SURGERY DISCHARGE SUMMARY Inpatient - Discharge Summary Patient Name: Daniel Urena Patient Age: 61 y.o. : 1955 Attending Physician: Gilson Mcgee MD Date of Admission: 05/24/2017 Date of Discharge: 05/27/2017 Diagnosis: Active Hospital Problems Diagnosis ??? Abscess Resolved Hospital Problems Diagnosis Date Resolved No resolved problems to display. Incidental Findings: None Operations and Procedures: * No surgery found * Surgeons: * Surgery not found * History of Present Illness: Daniel Urena is a 61-year-old male with [...] endorse back pain that is his baseline. Hospital Course: Daniel Urena is a 61 y.o. male who was admitted on 05/24/2017 for the above listed issues. On HD# 1 IR was contacted and his drains were exchanged. In addition to this, his abdominaldrain was up-sized from a 10 Fr to 12 Fr drain. He continued to have purulent drainage from his IR drains. There were some issues with his bulbs not holding suction. This was addressed on LOS: 3 days .IR was contacted and helped to manage this leak. Plan is for discharge to home with a scheduled return to the hospital on 05/31/2017 for surgical drainage. He is to be discharged on PO antibiotics (Ciprofloxacin and Flagyl). He is tolerating a regular diet. He is ambulating at baseline. He is voiding and having BMs. Prior to discharge on LOS: 3 days Daniel Urena was afebrile, with stable vital signs. On LOS: 3 days , he was discharged to home in stable condition. Vital Signs Last value Range last 24hrs Temperature Temp: 36.8 ??C (98.2 ??F) Temp: [36.4 ??C (97.6 ??F)-36.8 ??C (98.2 ??F)] Heart Rate Heart Rate: 96 Heart Rate: [96] Blood Pressure BP: (!) 147/98 BP: (124-147)/(55-98) Respiratory Rate Resp: 18 Resp: [15-18] SpO2 SpO2: 99 % SpO2: [96 %-99 %] Pertinent Lab Data: Recent Labs 05/27/17 0548 05/26/17 0530 05/25/17 0846 05/24/171999 WBC 5.1 5.4 7.2 9.9* HGB 10.1* 9.6* 9.4* 9.4* HCT 30.9* 29.3* 28.3* 29.3* PLATELET 237 284 290 285 Recent Labs 05/27/17 0548 05/26/17 0530 05/25/17 0846 05/24/171999 NA 137 137 137 137 K 4.1 3.9 4.0 4.0 CL 101 101 100 99 CO2 22 24 23 22 BUN 10 -- -- 16 CREATININE 0.92 -- -- 1.23 GLUCOSE 94 -- -- 155 CALCIUM 8.8 -- -- 8.5 Physical Exam: General: NAD, resting comfortably, pleasant, conversant HEENT: PERRL, anicteric sclerae CVS: RRR Pulm: CTAB Abd: obese, soft, non-tender, non-distended, non-peritoneal, drains with purulent output, holding suction currently, area around drain insertion site c/d/i Skin: warm, dry Ext: no edema Neuro: non-focal, moving all four extremities spontaneously Imaging: Mri Lumbar Spine Wwo Contrast Result Date: [...] drains are appropriately positioned within the collections. T here does remain some fluid within the left [...] abscesses is not identified on today's exam. Ct Abdomen & Pelvis W Contrast Addendum Date: 04/30/2017 ADDENDUM #1 There are enlarged portacaval and common hepatic lymph nodes in the right upper quadrant, each measuring approximately 17 mm in short axis. These are nonspecific however can be enlarged with chronic hepatocellular disease and clinical correlation is needed. INAL REPORT EXAMINATION: CT ABDOMEN AND PELVIS W CONTRAST CLINICAL HISTORY: s/p IR drain for left retroperitoneal abscess. Would now appreciate scan to determine etiology of abscess not that the collection is decompressed. PO and IV contrast. TECHNIQUE: Helical CT of the abdomen and pelvis was performed following the intravenous administration of contrast. 120 cc of Omnipaque 350 was given. Oral contrast was administered. COMPARISON: CT abdomen and pelvis 04/27/2017 FINDINGS: Lower chest: New small left pleural effusion and associated compressive atelectasis. Liver: Normal size and attenuation without lesions. Bile ducts: Nondilated. Gallbladder: Multiple dependent radiopaque gallstones. No wall thickening or adjacent inflammation. Pancreas: Normal attenuation without ductal dilatation. Spleen: Splenomegaly up to 20 cm. Adrenals: Normal. Kidneys: Bilateral lobular contour with areas of scarring. Small nonobstructing bilateral calculi, better delineated on prior noncontrast exam. No hydronephrosis or focal lesions. The inflammatory changes in the retroperitoneum about the left lower pole posteriorly Vasculature: No aneurysm. Minimal atherosclerosis. Lymph Nodes: No enlarged lymph nodes. Bowel: Nondilated, no wall thickening. Appendix is normal. Peritoneum and mesentery: Interval placement of the pigtail drain into the left retrocrural peritoneal abscess. The pigtail is located in the subdiaphragmatic left upper quadrant. Decreased size of the abscess, currently 6 x 11.2 x 17.6 cm, previously 11.6 x 14 x 21 cm. As before, the collection is contiguous with the left psoas muscle. The collection slightly displaces the left kidney anteriorly, lessthan on prior exam. There is residual left retroperitoneal fat stranding extending to the inferior pelvis. Abdominal wall: Foci of air in the right lower anterior abdominal wall likely related to injection. Urinary Bladder: Decompressed. Reproductive organs: Normal. Osseous structures: No suspicious lesions. Nondisplaced the lateral right 10th rib fracture. Along the anterior aspect of the left 11th rib, there is an area of cortical thinning without discrete cortical break. IMPRESSION: 1. Interval decrease in size of left retroperitoneal abscess contiguous with the left psoas muscle. In the absenceof a clear intra- abdominal or osseous source of infection, consider infection of a pre-existing hematoma. 2. Lateral right 10th rib fractures either acute or subacute; correlation with history needed. 3. Area of cortical thinning of the anterior aspect of left 11th rib without definitive fracture. This finding is indeterminate. If there is a history of malignancy, consider metastasis. I have personally reviewed the image(s) and the residents interpretation and agree with the findings, Loraine Jesus at 04/30/2017 4:31 PM Result Date: 04/30/2017 EXAMINATION: CT ABDOMEN AND PELVIS W CONTRAST CLINICAL HISTORY: s/p IR drain for left retroperitoneal abscess. Would now appreciate scan to determine etiology of abscess not that the collection is decompressed. PO and IV contrast. TECHNIQUE: Helical CT of the abdomen and pelvis was performed followingthe intravenous administration of contrast. 120 cc of Omnipaque 350 was given. Oral contrast was administered. COMPARISON: CT abdomen and pelvis 04/27/2017 FINDINGS: Lower chest: New small left pleuraleffusion and associated compressive atelectasis. Liver: Normal size and attenuation without lesions.Bile ducts: Nondilated. Gallbladder: Multiple dependent radiopaque gallstones. No wall thickening or adjacent inflammation. Pancreas: Normal attenuation without ductal dilatation. Spleen: Splenomegaly up to 20 cm. Adrenals: Normal. Kidneys: Bilateral lobular contour with areas of scarring. Small nonobstructing bilateral calculi, better delineated on prior noncontrast exam. No hydronephrosis or focal lesions. The inflammatory changes in the retroperitoneum about the left lower pole posteriorly Vasculature: No aneurysm. Minimal atherosclerosis. Lymph Nodes: No enlarged lymph nodes. Bowel: Nondilated,no wall thickening. Appendix is normal. Peritoneum and mesentery: Interval placement of the pigtail drain into the left retrocrural peritoneal abscess. The pigtail is located in the subdiaphragmatic left upper quadrant. Decreased size of the abscess, currently 6 x 11.2 x 17.6 cm, previously 11.6 x 14 x 21 cm. As before, the collection is contiguous with the left psoas muscle. The collection slightly displaces the left kidney anteriorly, less than on prior exam. There is residual left retroperitonealfat stranding extending to the inferior pelvis. Abdominal wall: Foci of air in the right lower anterior abdominal wall likely related to injection. Urinary Bladder: Decompressed. Reproductive organs: Normal. Osseous structures: No suspicious lesions. Nondisplaced the lateral right 10th rib fracture. Along the anterior aspect of the left 11th rib, there is an area of cortical thinning without discretecortical break. 1. Interval decrease in size of left retroperitoneal abscess contiguous with the left psoas muscle. In the absence of a clear intra-abdominal or osseous source of infection, consider infection of a pre-existing hematoma. 2. Lateral right 10th rib fractures either acute or subacute; correlation with history needed. 3. Area of cortical thinning of the anterior aspect of left 11th rib without definitivefracture. This finding is indeterminate. If there is a history of malignancy, consider metastasis. Ihave personally reviewed the image(s) and the residents interpretation and agree with the findings, Loraine Jesus at 04/30/2017 4:31 PM Xr Pre Mri Orbits (generic) Result Date: [...] as documented by the IR Nurse. Ct Guided Drain Retroperitoneal Abscess Addendum Date: 05/13/2017 Fentanyl only administered. Result Date: 04/27/2017 IR PROCEDURE NOTE : CT-guided left retroperitoneal abscess drain placement INDICATION : pain, left psoas-retroperitoneal abscess TECHNIQUE: After discussing risks (including infection and hemorrhage), and benefits, patient consented to the procedure. Due to the painful nature of the procedure, split do ses of fentanyl and versed were administered by the IR nurse during continuous monitoring of pulse, blood pressure and oxygen saturation. Lesion was localized with CT. After sterile preparation of the overlying skin, 7 cc 1% lidocaine SQ was administered for anesthesia, and an 18 ga needle was advanced under CT guidance into the collection. Over an .035 guidewire, tract was dilated to 10 Fr, and a 10 Fr locking pigtail drain with multiple side-holes along its length was placed. Catheter was securedto the skin and left to bulb suction drainage. Post-procedure CT images were obtained. Patient tolerated the procedure well. There were no immediate complications. Contrast : 0 cc Omnipaque 350. EBL : 4 cc. FINDINGS: retroperitoneal abscess extending from left psoas to sub- diaphragm, displacing kidneyanteriorly. 450 cc purulent material initially aspirated. : Technically successful drainage. Plan: bulb suction drainage, flush with 5-10 cc NS q 8h, record outputs Resident/Fellow: Ingris Attending: I, Dr. Salinas, was present throughout the procedure. I was present during the intraservice time as documented by the IR Nurse. Request For 2nd Read Ct Abdomen & Pelvis Result Date: 04/27/2017 EXAMINATION: REQUEST FOR 2ND READ CT ABDOMEN AND PELVIS CLINICAL HISTORY: ? RP abscess vs. necrotic tumor; What Modality is the exam? CT Scan; Body Part (please add comments as necessary): abdomen/ pelvis; I believe a reinterpretation of this exam may alter care of Patient. Yes TECHNIQUE: Helical CT of the abdomen and pelvis was performed without intravenous contrast at [facility] on 04/27/2017 at 1325 hours. COMPARISON: None FINDINGS: This examination is limited by body habitus, blurring from respiratory motion and the absence of intravenous contrast. Lung bases: Grossly clear. Liver: Normal size and attenuation without lesions. Bile ducts: Nondilated. Gallbladder: No calcified gallstones. Normal caliber wall. Pancreas: Normal attenuation without ductal dilatation. Spleen: Normal. Adrenals: Normal. Right kidney: Slightly lobular contour. Tiny nonobstructing calculus on series 3 image 45. Left kidney: Tiny nonobstructing lower pole calculus on series 3 image 57. There is a large retroperitoneal fluid collection displacing the left kidney ventrally, including mass effect/distortion of the left renal contour, but a fat plane between the kidney and the collection, seefor example series 3 image 44. A fat plane can be generally identified along the length of the dorsal margin of the left kidney and the collection, see for example series 6 image 55. The spleen is alsodisplaced ventrally. Predominantly at the superior and ventral margins of this collection are tiny foci of air. This collection is inseparable from the iliopsoas muscle and has areas of low attenuation, as low as 0 Hounsfield units, but other areas of higher attenuation, up to 22 Hounsfield units. Vasculature: Normal caliber vasculature. Lymph Nodes: Ventral and lateral to the collection, mildly prominent lymph nodes. Bowel: Colonic diverticula without findings for diverticulitis. No bowel wall to dilatation or appreciable wall thickening. Peritoneum and mesentery: No no intraperitoneal fluid collec tion or free air. Abdominal wall: Normal. Urinary Bladder: Contracted, otherwise unremarkable. Reproductive organs: Normal. Osseous structures: No suspicious lesions. Large retroperitoneal fluid collection on the left, inseparable from the left iliopsoas muscle, withvariable attenuation ranging from approximately 0-22 Hounsfield units, and containing tiny foci of air, displacing the left kidney ventrally. Question infection of a retroperitoneal hematoma. Ir All Drainage Procedures Result Date: 05/02/2017 IR Procedure Note Procedure: Left retroperitoneal drain exchange History/indication: 61 yr old M patient, presenting with abdominal pain; CT scan showed a large collection in the left retroperitoneum. Gram stain has revealed E. Coli. CT guided drainage done on 04/27. Upsizing of the drain requested to optimize output. Technique: After obtaining informed consent the patient was positioned supine with the left side elevated. The existing tube and surrounding skin were prepped and draped in a sterile fashion. 1% lidocaine was used as local anesthesia. The patient received split doses of intravenous fentanyl from the IR nurse while pulse, pressure, end tidal CO2 parameters and oxygen saturation were continuously monitored. Over an Amplatz wire, the tube was exchanged for a 12 Fr drainage catheter. The locking loop was formed and 60 cc of nunes, purulent fluid was aspirated by syringe. The catheter wassecured to the adjacent skin with 2-0 nylon suture material. The patient tolerated the procedure well. Complications: None immediate; EBL=0 Medications: 1% lidocaine (<10 cc); fentanyl 100 mcg Contrast: None injected Fluoroscopy time: 0.8 minutes Findings: 1. Over the wire drain exchange and uspizing to 12 Fr; leakage of air was likely due to side holes near the skin exit site. 2. 60 cc of nunes, purulent fluid was aspirated by syringe. Attending: Josefina Lemus MD I was present during the intraservice time [...] Normal caliber of the thoracic aorta. Lymph nodes/Mediastinum/Julia: No pathologically enlarged lymph nodes. Abdomen/pelvis: Liver: [...] 12:19 PM Ir Drain Check/change/remove Result Date: 05/26/2017 IR [...] findings, Isabel Lazcano at 05/14/2017 11:08 AM Condition at discharge: Stable Mental Status: Awake and alert, oriented x 3 Medications: Your Medications New Medications Dose Details ibuprofen 600 mg Tab Commonly known as: ADVIL;MOTRIN Take 1 tablet by mouth every 6 hours as needed for Pain (for MILD pain (1-3)). 600 mg Quantity: 30 tablet Refills: 12 Continued medications, unchanged Dose Details ciprofloxacin 500 mg Tab Commonly known as: CIPRO Take 1 tablet by mouth 2 times daily for 28 days. 500 mg Quantity: 56 tablet Refills: 0 metroNIDAZOLE 500 mg Tab Commonly known as: FLAGYL Take 1 tablet by mouth 3 times daily for 28 days. 500 mg Quantity: 84 tablet Refills: 0 STOPPED Medications traMADol 50 mg Tab Commonly known as: ULTRAM Disposition: Home Allergies: Allergies Allergen Reactions ??? Tylenol [Acetaminophen] Causes acid reflux Outpatient Services/Studies: No discharge procedures on file. Scheduled Appointments: Future Appointments and Orders Future Appointments Provider Department Dept Phone 06/06/2017 4:00 PM Price Quezada MD Infectious Disease at [place] [phone] 06/07/2017 11:30 AM [facility] IR ROOM 3 Radiology at [place] [phone] Please expect a call from a radiology nurse within 3 days of your exam, you will need to follow theinstructions given at that time. Instructions Given to Patient at Discharge: Patient Instructions Discharge Instructions ? CALL YOUR PHYSICIAN IF: ?? You have a fever greater than 101 degrees Farenheit within one month of your surgery. ?? You have diarrhea or vomiting for >24 hours, or stop having bowel movements and passing flatus ?? You have worsening pain, not controlled with your pain medication. ?? You develop redness, swelling, or new drainage from your wound. ?? Prescriptions: ?? You have been prescribed Tramadol to control your pain after surgery. This should only be used tocontrol breakthrough pain. ?? You have been prescribed two antibiotics to help control your infection (Flagyl/Metronidazole andCiprofloxacin). Please take these as prescribed. ?? Your blood pressures have been well controlled in the hospital off your Lisinopril. Please hold this medication. ?? Driving Restrictions: ?? No driving if you are too sore from surgery to enter or exit your vehicle comfortably, or if you are too sore to easily check your blind spot. ?? Activities: ?? There are no major restrictions on your activities ?? Use common sense and do not perform activities that would dislodge your IR drains ?? Diet: ?? Resume your normal diet ?? Wound Care: ?? You can shower per usual routine and wash the incision area gently. Pat incision dry with a clean, dry towel. ?? Do not submerge the wound under water (avoid spas, pools and bathtubs) until it is fully healed. ?? Do not use creams, oils, or ointments on the wound. ?? See below for further details regarding your drain care. You will have [facility] to help assist you with this care. ?? You should flush these drains daily with 5 cc of sterile normal saline ?? Please call with any questions, issues, or problems with your drains ?? Follow-up Appointments: You will have a scheduled surgery with Dr. Mcgee on 05/31/2017 at 11:56 AM. You will recieve a letter in the mail and/or a phone call with information about this surgery. Please call to confirm date and time of your surgery, or if you do not receive information about your surgery in a timely manner. Please call if you have any questions or issues regarding your care. ?? Below is a list of contact phone numbers: General Surgery: [facility]: ?? General Instructions INTERVENTIONAL RADIOLOGY DRAIN CARE INSTRUCTIONS Drains help [...] on instructions on how to do this. What [...] and dry. How to Empty Your Drain and flush drain Note: Wash your hands thoroughly before emptying your drain(s). Unpin the drain from your clothing. 1. Turn the white stopcock so it is not parallel (in line) with the tubing. 2. Unscrew the tubing with the bulb attached from stopcock. Make sure you keep everything clean. 3. Attach the syringe with sterile saline to the stopcock. 4. Inject saline per MD order, 3-5 cc's. Forward flush only, do not aspirate back. 5. Re-attach the tubing with the bulb to the stopcock. 6. Invert the bulb and pull open the plug. 7. Have the plastic measuring cup from the hospital ready to collect and measure the drainage. Please measure the output at the same time every 24 hours and record the amount. 8. Turn the drain upside down and squeeze the contents of the bulb into the measuring cup. Be sure to empty the bulb as completely as possible. Flush the contents in the toilet. 9. Use the drain output log chart to record the amount of drainage twice a day or any time the bulb is full. Record the total for 24 hours for each drain you have. 10. If you have more than one drain, remember to record the drainage from each drain separately. 11. To prevent infection, do not let the stopper or top of the bottle touch the measuring cup or anyother surface. 1. 2. Use one hand to squeeze all of the air from the drain. With the drain still squeezed, use your other hand to replace the top. This creates the suction necessary to remove the fluids from your body. 3. Pin the drain back on your clothing to avoid pulling it out accidently. 4. Wash your hands again. Remember to wash your hands before and after the procedure to reduce the risk of infection. Flushing the Drain: Your doctor may want the drain to be flushed once or twice daily to keep the fluid from plugging the drain. Flush the drain with 3-5 cc daily with the syringes supplied to you. FORWARD FLUSH ONLY, DO NOT ASPIRATE BACK. When to call the Interventional Radiology Department: Please call with any questions or concerns. Ifit is during regular office hours, please call [phone]. If it is after regular office hours, oron weekends or holidays, please call [phone] and ask to speak to the Nutrition Internship on callfor Interventional Radiology. XX You have received medication during your procedure to help lessen anxiety and keep you comfortable. These medications affect judgement and reaction time. We recommend that you do not drive, operateequipment, sign any important documents, or smoke unattended for 24 hours following your procedure. Because of the sedation, be careful on stairs, as you may be unsteady on your feet. You may resume your regular diet as tolerated. IV site -- slight redness, or tenderness is normal, you can use a warm compress. If tenderness and redness increases or foul drainage occurs, please contact your M. D. Revised 05/13/15 Drainage Record NAME: Date of Surgery: Date: Time: If more than one drain, which one: Drainage Amount (per drain) Total Amount (per drain; in 24 hours) Signed: NUNU KINCAID MD 05/27/2017 Primary [place] Physician: Odalys Laird MD [facility] [address] / [facility] [id number] documented in this encounter Discharge Instructions Discharge InstructionsNuzhat Javed RN - 05/25/2017 1:13 PM EST Images from the original note were not included. INTERVENTIONAL RADIOLOGY DRAIN CARE INSTRUCTIONS Drains help [...] on instructions on how to do this. What [...] and dry. How to Empty Your Drain and flush drain Note: Wash your hands thoroughly before emptying your drain(s). Unpin the drain from your clothing. 1. Turn the white stopcock so it is not parallel (in line) with the tubing. 2. Unscrew the tubing with the bulb attached from stopcock. Make sure you keep everything clean. 3. Attach the syringe with sterile saline to the stopcock. 4. Inject saline per MD order, 3-5 cc's. Forward flush only, do not aspirate back. 5. Re-attach the tubing with the bulb to the stopcock. 6. Invert the bulb and pull open the plug. 7. Have the plastic measuring cup from the hospital ready to collect and measure the drainage. Please measure the output at the same time every 24 hours and record the amount. 8. Turn the drain upside down and squeeze the contents of the bulb into the measuring cup. Be sure to empty the bulb as completely as possible. Flush the contents in the toilet. 9. Use the drain output log chart to record the amount of drainage twice a day or any time the bulb is full. Record the total for 24 hours for each drain you have. 10. If you have more than one drain, remember to record the drainage from each drain separately. 11. To prevent infection, do not let the stopper or top of the bottle touch the measuring cup or anyother surface. 1. 2. Use one hand to squeeze all of the air from the drain. With the drain still squeezed, use your other hand to replace the top. This creates the suction necessary to remove the fluids from your body. 3. Pin the drain back on your clothing to avoid pulling it out accidently. 4. Wash your hands again. Remember to wash your hands before and after the procedure to reduce the risk of infection. Flushing the Drain: Your doctor may want the drain to be flushed once or twice daily to keep the fluid from plugging the drain. Flush the drain with 3-5 cc daily with the syringes supplied to you. FORWARD FLUSH ONLY, DO NOT ASPIRATE BACK. When to call the Interventional Radiology Department: Please call with any questions or concerns. Ifit is during regular office hours, please call [phone]. If it is after regular office hours, oron weekends or holidays, please call [phone] and ask to speak to the [facility] on callfor Interventional Radiology. XX You have received medication during your procedure to help lessen anxiety and keep you comfortable. These medications affect judgement and reaction time. We recommend that you do not drive, operateequipment, sign any important documents, or smoke unattended for 24 hours following your procedure. Because of the sedation, be careful on stairs, as you may be unsteady on your feet. You may resume your regular diet as tolerated. IV site -- slight redness, or tenderness is normal, you can use a warm compress. If tenderness and redness increases or foul drainage occurs, please contact your M. D. Revised 05/13/15 Drainage Record NAME: Date of Surgery: Date: Time: If more than one drain, which one: Drainage Amount (per drain) Total Amount (per drain; in 24 hours) Patient Nunu Baeza - 05/27/2017 12:46 PM EST Discharge Instructions ? CALL YOUR PHYSICIAN IF: ?? You have a fever greater than 101 degrees Farenheit within one month of your surgery. ?? You have diarrhea or vomiting for >24 hours, or stop having bowel movements and passing flatus ?? You have worsening pain, not controlled with your pain medication. ?? You develop redness, swelling, or new drainage from your wound. ?? Prescriptions: ?? You have been prescribed Tramadol to control your pain after surgery. This should only be used tocontrol breakthrough pain. ?? You have been prescribed two antibiotics to help control your infection (Flagyl/Metronidazole andCiprofloxacin). Please take these as prescribed. ?? Your blood pressures have been well controlled in the hospital off your Lisinopril. Please hold this medication. ?? Driving Restrictions: ?? No driving if you are too sore from surgery to enter or exit your vehicle comfortably, or if you are too sore to easily check your blind spot. ?? Activities: ?? There are no major restrictions on your activities ?? Use common sense and do not perform activities that would dislodge your IR drains ?? Diet: ?? Resume your normal diet ?? Wound Care: ?? You can shower per usual routine and wash the incision area gently. Pat incision dry with a clean, dry towel. ?? Do not submerge the wound under water (avoid spas, pools and bathtubs) until it is fully healed. ?? Do not use creams, oils, or ointments on the wound. ?? See below for further details regarding your drain care. You will have VNA to help assist you with this care. ?? You should flush these drains daily with 5 cc of sterile normal saline ?? Please call with any questions, issues, or problems with your drains ?? Follow-up Appointments: You will have a scheduled surgery with Dr. Mcgee on 05/31/2017 at 11:56 AM. You will recieve a letter in the mail and/or a phone call with information about this surgery. Please call to confirm date and time of your surgery, or if you do not receive information about your surgery in a timely manner. Please call if you have any questions or issues regarding your care. ?? Below is a list of contact phone numbers: General Surgery: [facility]: ?? documented in this encounter Medications at Time [...] documented as of this encounter Progress Notes Josh Maier RN - 05/27/2017 5:38 PM EST Patient Name: Daniel Urena Patient Age: 61 y.o. Birthdate: 1955 Admit date: 05/24/2017 Attending Physician: Gilson Mcgee MD Pt discharged to home, no services. Family will be assisting with drain care. Prior to discharge, ptwent to IR for new drain placements. Pt received no anesthesia for procedure in anticipation of discharge this evening and driving himself home. Reviewed discharge instructions with patient, pt verbalized understanding of all discharge instructions. Pt left unit via wheelchair with staff assist to N entrance, where his vehicle is located. Pt left unit at 1750. Macy Martinez RN - 05/27/2017 5:00 PM EST ANGIO NURSING DATABASE Name: DANIEL URENA Date of : 1955 AGE: 61 y.o. Address: [address] [address] (home) Mobile: Telephone Information: Referring Provider: No ref. provider found REASON FOR VISIT: Sinogram and Drain Exchange Reason for exam and clinical history: Cracked hubs on new drains Exam/Procedure requested: Drain swap x 2 Does patient require sedation? None Is the patient on anticoagulant/anitplatelet therapy? Other: see comments field Allergies Allergen Reactions ??? Tylenol [Acetaminophen] Causes [...] and L lateral drains. Lidocaine Jelly 2%? 7252 To procedure room 1 via stretcher.Onto table lying on right site. SaO2, BP and safety strap in place. Lidocaine jelly only, patient reported that he will be driving himself home upon discharge this evening. Laboratory Results: Lab Results Component Value Date [...] for Pain (for MILD pain (1-3)). 05/27/17 Nunu Kincaid MD ciprofloxacin (CIPRO) 500 mg Tablet Take 1 tablet by mouth 2 times daily for 28 days. 05/16/17 06/13/17 Nunu Kincaid MD metroNIDAZOLE (FLAGYL) 500 mg Tablet Take 1 tablet by mouth 3 times daily for 28 days. 05/16/17 06/13/17 Nunu Kincaid MD Josh Montano PT - 05/27/2017 10:57 AM EST PT referral received, chart reviewed, spoke with RN and met briefly with patient. He has been mobilizing in and out of bed and in his room independently. Pt denies need for help with mobility, has his cane which he uses when walking distances. No acute care PT needs at the present time. Will monitor his status while here and intervene if needs arise. Should mobilize with facilitation by nursing staffwhile here. Josh Montano, PT Pager [phone] Price Castañeda MD - 05/27/2017 7:27 AM EST General Surgery Inpatient Progress Note ID: Daniel Urena is a 61 y.o. male with a PMH of morbid obesity and HTN who initially presented on 04/27 with a retroperitoneal abscess of unknown origin. S/p IR drainage of retroperitoneal abscess on 04/27. Repeat imaging on 05/10 showed a new abdominal collection in addition to his persistent retroperitoneal collection. S/p IR drainage of abdominal abscess on 05/11. Repeat imaging on 05/24 shows increased size in his collections. 24hr events: ?? No acute events over night ?? Both drains placed by IR not holding suction; very minimal output from both drains Subjective: No major complaints this AM frustrated with lack of suction with abdominal IR drains and the fact hehas to stay in the hospital, denies fevers or chills, pain well controlled, tolerating PO intake. Complaining of some sharp left-sided back pain. O: Last value Range last 24hrs Temperature Temp: 36.4 ??C (97.6 ??F) Temp: [36.4 ??C (97.6 ??F)-37.9 ??C (100.3 ??F)] Heart Rate Heart Rate: 96 Heart Rate: [96] Blood Pressure BP: 128/87 BP: (128-147)/(55-93) Respiratory Rate Resp: 18 Resp: [15-18] SpO2 SpO2: 99 % RA SpO2: [96 %-99 %] 05/26 0701 - 05/27 0700 In: 1540 [P.O.:1540] Out: 1486 [Urine:1450] LATOYA (abdominal): 23 cc purulent LATOYA (retroperitoneal): 13 cc purulent Physical Exam: General: NAD, resting comfortably, pleasant, conversant HEENT: PERRL, anicteric sclerae CVS: RRR Pulm: CTAB Abd: obese, soft, non-tender, non-distended, non-peritoneal, drains with purulent output, NOT holding suction currently, area around drain insertion site c/d/i Skin: warm, dry Ext: no edema Neuro: non-focal, moving all four extremities spontaneously Labs: Recent Labs 05/27/17 0548 05/26/17 0530 05/25/17 0846 05/24/171999 WBC 5.1 5.4 7.2 9.9* HGB 10.1* 9.6* 9.4* 9.4* HCT 30.9* 29.3* 28.3* 29.3* PLATELET 237 284 290 285 Recent Labs 05/26/17 0530 05/25/17 0846 05/24/171999 NA 137 137 137 K 3.9 4.0 4.0 CL 101 100 99 CO2 24 23 22 BUN -- -- 16 CREATININE -- -- 1.23 GLUCOSE -- -- 155 CALCIUM -- -- 8.5 Microbiology: 04/27 Body Fluid Cx: E. coli Cultures since have been NGTD while on antibiotics 05/25 Body Fluid Cx: Pending New Studies: 05/25 IR Drain Placement: Images reviewed ASSESSMENT: Daniel Urena is a 61 y.o. male with a PMH of morbid obesity and HTN who initially presented on 04/27 with a retroperitoneal abscess of unknown origin. S/p IR drainage of retroperitoneal abscess on 04/27. Repeat imaging on 05/10 showed a new abdominal collection in addition to his persistent retroperitoneal collection. S/p IR drainage of abdominal abscess on 05/11. Repeat imaging on 05/24 shows increased size in his collections. Will contact IR about drains not holding suction. Continue antibiotics. Will need operative washout,drainage, and drain placement next week (timing TBD); possibly to OR later this afternoon if IR cannot fix drains. If drains can be fixed, we may be able to delay surgery until later this week. Will continue to follow up on drain cultures. PLAN: NEURO: Pain control with Tylenol and Tramadol CV: No acute issues PULM: No acute issues GI: Diet Regular diet, IR drains to suction with flushing to maintain patency, will contact IR for aid in triaging suction issues, f/u repeat cultures from procedure : No acute issues FEK: No acute issues ID: Continue PO Ciprofloxacin and Flagyl HEME: No acute issues ENDO: No acute issues PROPHYLAXIS: Lovenox, SCDs, no indication for GI ppx DISPO: Floor status, Full Code Price Juárez MD Marlon Multani MD - 05/26/2017 12:59 PM EST INTERVENTIONAL RADIOLOGY Inpatient Progress Note Admitted 05/24/2017 Procedure(s): - Retroperitoneal drain exchange (12Fr) - Exchange and upsize of abdominal drain (10 Fr > 12 Fr) Post-procedure day: #1 Time of patient encounter: 1200PM 24 Hour Events: S/p drain exchanges yesterday, initially with good output from both, but now bulbs, especially the left lateral most drain not holding suction well. Last Value 24 Hour Range Temperature 37.9 ??C (100.3 ??F) Temp: [36.3 ??C (97.3 ??F)-37.9 ??C (100.3 ??F)] Heart Rate 95 Heart Rate: [95] Blood Pressure 139/88 BP: (95-139)/(57-88) Respiratory Rate 17 Resp: [14-20] SpO2 98 % SpO2: [94 %-98 %] Physical Exam GEN No distress, A&O CARDS RRR LUNGS CTA B/L ABD Non tender, nondistended. Drain sites are c/d/i, left lateral most drain not holding suction Drains/Tubes: - Left anterior drain 290 cc out purulent fluid - Left lateral drain 380 cc out purulent fluid Intake/Output Summary (Last 24 hours) at 05/26/17 1259 Last data filed at 05/26/17 0900 Gross per 24 hour Intake 3839 ml Output 2376 ml Net 1463 ml Labs: Reviewed A/P: 61 y.o. male W/hx of left retroperitoneal and left paracolic gutter abscesses s/p drain exchanges yesterday. Left lateral most drain not holding suction despite evaluation at bedside without evidence for air leak or definitive reason for loss of bulb suction. - Will re-assess drain function tomorrow AM - Continue both to bulb suction at this time - IR following Marlon Multani MD IR Fellow Pager #[phone] Nunu Kincaid Huseyin - 05/26/2017 9:30 AM EST General Surgery Inpatient Progress Note ID: Daniel Urena is a 61 y.o. male with a PMH of morbid obesity and HTN who initially presented on 04/27 with a retroperitoneal abscess of unknown origin. S/p IR drainage of retroperitoneal abscess on 04/27. Repeat imaging on 05/10 showed a new abdominal collection in addition to his persistent retroperitoneal collection. S/p IR drainage of abdominal abscess on 05/11. Repeat imaging on 05/24 shows increased size in his collections. 24hr events: ?? IR exchange of both drains with up-sizing of abdominal drain to 12 Fr, purulent fluid obtained, repeat cultures pending ?? Abdominal drain appears to lose suction after 20-30 minutes and need continued attention ?? No acute events Subjective: No major complaints this AM frustrated with lack of suction with abdominal IR drain, denies fevers or chills, pain well controlled, tolerating PO intake O: Last value Range last 24hrs Temperature Temp: 36.7 ??C (98.1 ??F) Temp: [36.3 ??C (97.3 ??F)-36.8 ??C (98.2 ??F)] Heart Rate Heart Rate: 95 Heart Rate: [95] Blood Pressure BP: 131/84 BP: (89-132)/(54-84) Respiratory Rate Resp: 17 Resp: [14-20] SpO2 SpO2: 98 % RA SpO2: [94 %-98 %] 05/25 0701 - 05/26 0700 In: 3419 [P.O.:1140; I.V.:2279] Out: 2470 [Urine:1800] LATOYA (abdominal): 290 cc purulent LATOYA (retroperitoneal): 380 cc purulent Physical Exam: General: NAD, resting comfortably, pleasant, conversant HEENT: PERRL, anicteric sclerae CVS: RRR Pulm: CTAB Abd: obese, soft, non-tender, non-distended, non-peritoneal, drains with purulent output, holding suction currently, area around drain insertion site c/d/i Skin: warm, dry Ext: no edema Neuro: non-focal, moving all four extremities spontaneously Labs: Recent Labs 05/26/17 0530 05/25/17 0846 05/24/171999 WBC 5.4 7.2 9.9* HGB 9.6* 9.4* 9.4* HCT 29.3* 28.3* 29.3* PLATELET 284 290 285 Recent Labs 05/26/17 0530 05/25/17 0846 05/24/171999 NA 137 137 137 K 3.9 4.0 4.0 CL 101 100 99 CO2 24 23 22 BUN -- -- 16 CREATININE -- -- 1.23 GLUCOSE -- -- 155 CALCIUM -- -- 8.5 Microbiology: 04/27 Body Fluid Cx: E. coli Cultures since have been NGTD while on antibiotics 05/25 Body Fluid Cx: Pending New Studies: 05/25 IR Drain Placement: Images reviewed ASSESSMENT: Daniel Urena is a 61 y.o. male with a PMH of morbid obesity and HTN who initially presented on 04/27 with a retroperitoneal abscess of unknown origin. S/p IR drainage of retroperitoneal abscess on 04/27. Repeat imaging on 05/10 showed a new abdominal collection in addition to his persistent retroperitoneal collection. S/p IR drainage of abdominal abscess on 05/11. Repeat imaging on 05/24 shows increased size in his collections. Continue IR drains to suction. Will contact IR regarding bedside management to improve ability to hold suction. No leak identified on exam this AM. Continue antibiotics. Will need operative washout, drainage, and drain placement next week (timing TBD) PLAN: NEURO: Pain control with Tylenol and Tramadol CV: No acute issues PULM: No acute issues GI: Diet Regular diet, IR drains to suction with flushing to maintain patency, will contact IR for aid in triaging suction issues, f/u repeat cultures from procedure : No acute issues FEK: No acute issues ID: Continue PO Ciprofloxacin and Flagyl HEME: No acute issues ENDO: No acute issues PROPHYLAXIS: Lovenox, SCDs, no indication for GI ppx DISPO: Floor status, Full Code NUNU KINCAID MD Nita Emerson RN - 05/25/2017 4:20 PM EST 05/25/17 1550 Safety Safety WDL WDL Visual Checks Awake Safety Interventions Safety Promotion/Fall Prevention safety round/check completed All Alarms alarm(s) activated and audible Consumer [employer] Counselor Protection tubing secured Medication Review/Management medications reviewed Environmental Safety Modification clutter free environment maintained Infection Prevention rest/sleep promoted Isolation Precautions standard precautions maintained Type of Monitor Masimo Daily Care Activity Type activity adjusted per tolerance Activity Assistance Provided independent assumed pt care. He is resting comfortably in bed with no complaints. Drains putting out nunes creamy liquid. Pt has call eaton at hand. Nuzhat Javed RN - 05/25/2017 12:36 PM EST 1224 To procedure room 3 via stretcher. Onto table Lying right side. All monitors, safety strap in place. Med's per protocol. Romana Loredo RN - 05/25/2017 12:03 PM EST ANGIO NURSING DATABASE Name: DANIEL URENA Date of : 1955 AGE 61 y.o. Address: [address] [address] (home) Mobile: Telephone Information: Referring Provider: No ref. provider found REASON FOR VISIT: Drain check/replacement Assessment: 61 y.o. male w/left retroperitoneal and left abdominal abscesses s/p drain placement nowpresenting for drain checks replacements due to decreased output and increased size of abscesses. ?? Plan: IR drain replacements ?? Labs to be performed day of procedure: Current Medication to STOP: None Sedation: minimal (single agent only) Prophylactic antibiotic: None Additional medications for procedure: None Planned access site: Left abdomen Position: Supine Consent: Pending ?? 05/27/2017 Anticoagulant/antiplatelet/herbal med. stopped on per MD order. Allergies Allergen Reactions ??? Tylenol [Acetaminophen] Causes acid reflux Pertinent PMH: Patient Active Problem List Diagnosis Code ??? Retroperitoneal abscess K68.19 ??? Intra-abdominal abscess K65.1 ??? Abscess L02.91 Pertinent PSH: Past Surgical History: Procedure Laterality Date ??? ORCHIOPEXY Left Date/Procedure ?Meds given/comments 04/27/17 CT Guided Drain Retroperitoneal Placement for Abscess Fentanyl 175 mcg IV ??05/02/16 Upsize drain to 12.5 Fentanyl 100 mcg iv 05/10/17 CT abscess drain #2, abdomen?? Fentanyl 150 mcg IV, Versed 2 mg IV 05/25/17 sinogram L retroperitoneal and L lateral drains? Fentanyl 75 Mcg IV, lido jelly 2%; tolerated well? Laboratory Results: Lab Results Component Value Date INR 1.1 05/10/2017 Lab Results Component Value Date CREATININE 1.23 05/24/2017 Lab Results Component Value Date K 4.0 05/25/2017 Lab Results Component Value Date PLATELET 290 05/25/2017 Medications: Prior to Admission medications Medication Sig Start Date End Date Taking? Authorizing Provider ciprofloxacin (CIPRO) 500 mg Tablet Take 1 tablet by mouth 2 times daily for 28 days. 05/16/17 06/13/17 Nunu Kincaid MD metroNIDAZOLE (FLAGYL) 500 mg Tablet Take 1 tablet by mouth 3 times daily for 28 days. 05/16/17 06/13/17 Nunu Kincaid MD Nunu Kincaid - 05/25/2017 8:08 AM EST General Surgery Inpatient Progress Note ID: Daniel Urena is a 61 y.o. male with a PMH of morbid obesity and HTN who initially presented on 04/27 with a retroperitoneal abscess of unknown origin. S/p IR drainage of retroperitoneal abscess on 04/27. Repeat imaging on 05/10 showed a new abdominal collection in addition to his persistent retroperitoneal collection. S/p IR drainage of abdominal abscess on 05/11. Repeat imaging on 05/24 shows increased size in his collections. 24hr events: ?? No acute events ?? Had some issues with purulent drainage around his drain site, reinforced Subjective: No major complaints this AM, denies fevers or chills, pain well controlled, would like to drink something this AM O: Last value Range last 24hrs Temperature Temp: 36.8 ??C (98.2 ??F) Temp: [36.3 ??C (97.3 ??F)-37.2 ??C (99 ??F)] Heart Rate Heart Rate: 85 Heart Rate: [85-127] Blood Pressure BP: 135/83 BP: (107-135)/(69-83) Respiratory Rate Resp: 16 Resp: [16-17] SpO2 SpO2: 98 % RA SpO2: [96 %-98 %] 05/24 0701 - 05/25 0700 In: 720 [P.O.:720] Out: 785 [Urine:775] Physical Exam: General: NAD, resting comfortably, pleasant, conversant HEENT: PERRL, anicteric sclerae CVS: RRR Pulm: CTAB Abd: obese, soft, non-tender, non-distended, non-peritoneal, drains with purulent output, holding suction, area around drain insertion site cleaned Skin: warm, dry Ext: no edema Neuro: non-focal, moving all four extremities spontaneously Labs: Recent Labs 05/24/171999 WBC 9.9* HGB 9.4* HCT 29.3* PLATELET 285 Recent Labs 05/24/171999 NA 137 K 4.0 CL 99 CO2 22 BUN 16 CREATININE 1.23 GLUCOSE 155 CALCIUM 8.5 Microbiology: 04/27 Body Fluid Cx: E. coli Cultures since have been NGTD while on antibiotics New Studies: 05/25 CT Abd/Pelvis: IMPRESSION Interval marked enlargement of the large left retroperitoneal and left paracolic gutter abscesses with well-positioned pigtail drains. The left psoas abscess has mildly increased in size and is in continuity with the left retroperitoneal abscess. ASSESSMENT: Daniel Urena is a 61 y.o. male with a PMH of morbid obesity and HTN who initially presented on 04/27 with a retroperitoneal abscess of unknown origin. S/p IR drainage of retroperitoneal abscess on 04/27. Repeat imaging on 05/10 showed a new abdominal collection in addition to his persistent retroperitoneal collection. S/p IR drainage of abdominal abscess on 05/11. Repeat imaging on 05/24 shows increased size in his collections. Plan for exchange/replacement of his intra-abdominal drain. IR has been contacted this AM - request and plan confirmed, they may exchange both drains depending on drain studies, procedure to be performed around 11 AM. Continue antibiotics. OK for diet once IR procedures performed. Will need operative w ashout, drainage, and drain placement next week. PLAN: NEURO: Pain control with Tylenol and Tramadol CV: No acute issues PULM: No acute issues GI: Diet NPO diet (Give Meds), plan for IR drain exchange today, would resend cultures from procedure, OK for diet post-procedure and HLIV : No acute issues FEK: No acute issues ID: Continue Ciprofloxacin and Flagyl HEME: No acute issues ENDO: No acute issues PROPHYLAXIS: Lovenox, SCDs, no indication for GI ppx DISPO: Floor status, Full Code NUNU KINCAID MD Patricia Rodriguez RN - 05/24/2017 6:48 PM EST 1830: Patient arrived on unit independently in no apparent distress. He was settled in room 406. documented in this encounter H&P Notes Marlon Multani MD - 05/27/2017 5:56 PM EST Images from the original note were not included. INTERVENTIONAL RADIOLOGY FOCUSED H&P and PRE-PROCEDURE NOTE: PCP: Odalys Laird MD Referring Provider: No ref. provider found Planned Procedure: Drain check and replacement (x 2) Procedure Indication: Broken drains again at the hub Presenting Diagnosis/ Complaint: Daniel Urena is a 61 y.o. male with hx of morbid obesity, HTN, initially presented on 04/27 with retroperitoneal abscess, underwent IR drainage on 04/27. Had repeat imaging on 05/10 showing new abdominal collection along with persistent retroperitoneal collection. Abdominal collection was drained on 05/11. Patient presented to surgery clinic on 05/24 with report of decreasing drain output (primarily abdominal, also retroperitoneal) and LLQ pressure. Now with drains cracked at hubs. Plan for check of both retroperitoneal and abdominal drains and replacement. 04/27/17 - CT-guided retroperitoneal abscess drain placed (10 Fr locking pigtail) 05/02/17 - Left retroperitoneal drain exchange, upsized to 12 Fr 05/10/17 - CT-guided left paracolic abscess drain placement, 10 Fr locking loop 05/25/17 - Both drains swapped to 12 Fr 05/27/17 - Both drains swapped again for broken hubs Past Medical/Surgical History: Patient Active Problem List Diagnosis Code ??? Retroperitoneal abscess K68.19 ??? Intra-abdominal abscess K65.1 ??? Abscess L02.91 Past Medical History: Diagnosis Date ??? HTN (hypertension) ??? Obesity Past Surgical History: Procedure Laterality Date ??? ORCHIOPEXY Left Medications: No current facility-administered medications on file prior to encounter. Current Outpatient Prescriptions on File Prior to Encounter Medication Sig Dispense Refill ??? ciprofloxacin (CIPRO) 500 mg Tablet Take 1 tablet by mouth 2 times daily for 28 days. 56 tablet 0 ??? metroNIDAZOLE (FLAGYL) 500 mg Tablet Take 1 tablet by mouth 3 times daily for 28 days. 84 tablet0 Allergies: Tylenol [acetaminophen] Social History and Habits: Social History Social [...] ??? Not on file Social History Narrative Significant Family History: No family history on file. Pertinent ROS: as per HPI Labs: Lab Results Component Value Date WBC 5.1 05/27/2017 HCT 30.9 (L) 05/27/2017 PLATELET 237 05/27/2017 INR 1.1 05/10/2017 BUN 10 05/27/2017 CREATININE 0.92 05/27/2017 ALKPHOS 95 04/27/2017 AST 15 04/27/2017 ALBUMIN 2.9 (L) 04/27/2017 BILITOT 0.8 04/27/2017 ALT 11 04/27/2017 PROT 7.9 04/27/2017 Imaging: Assessment: 61 y.o. male w/left retroperitoneal and left abdominal abscesses s/p drain placement nowpresenting for drain checks replacements due to decreased output and increased size of abscesses. Now with broken drain hubs again. Plan: IR drain replacements Labs to be performed day of procedure: Current Medication to STOP: None Sedation: minimal (single agent only) Prophylactic antibiotic: None Additional medications for procedure: None Planned access site: Left abdomen Position: Supine Consent: Pending 05/28/2017 Marlon Multani MD - 05/27/2017 3:21 PM EST Images from the original note were not included. INTERVENTIONAL RADIOLOGY FOCUSED H&P and PRE-PROCEDURE NOTE: PCP: Odalys Laird MD Referring Provider: No ref. provider found Planned Procedure: Drain check and replacement (x 2) Procedure Indication: Drains without output, increased size of collections on CT Presenting Diagnosis/ Complaint: Daniel Urena is a 61 y.o. male with hx of morbid obesity, HTN, initially presented on 04/27 with retroperitoneal abscess, underwent IR drainage on 04/27. Had repeat imaging on 05/10 showing new abdominal collection along with persistent retroperitoneal collection. Abdominal collection was drained on 05/11. Patient presented to surgery clinic on 05/24 with report of decreasing drain output (primarily abdominal, also retroperitoneal) and LLQ pressure. Now with drains cracked at hubs. Plan for check of both retroperitoneal and abdominal drains and replacement. 04/27/17 - CT-guided retroperitoneal abscess drain placed (10 Fr locking pigtail) 05/02/17 - Left retroperitoneal drain exchange, upsized to 12 Fr 05/10/17 - CT-guided left paracolic abscess drain placement, 10 Fr locking loop 05/25/17 - Both drains swapped to 12 Fr Past Medical/Surgical History: Patient Active Problem List Diagnosis Code ??? Retroperitoneal abscess K68.19 ??? Intra-abdominal abscess K65.1 ??? Abscess L02.91 Past Medical History: Diagnosis Date ??? HTN (hypertension) ??? Obesity Past Surgical History: Procedure Laterality Date ??? ORCHIOPEXY Left Medications: No current facility-administered medications on file prior to encounter. Current Outpatient Prescriptions on File Prior to Encounter Medication Sig Dispense Refill ??? ciprofloxacin (CIPRO) 500 mg Tablet Take 1 tablet by mouth 2 times daily for 28 days. 56 tablet 0 ??? metroNIDAZOLE (FLAGYL) 500 mg Tablet Take 1 tablet by mouth 3 times daily for 28 days. 84 tablet0 Allergies: Tylenol [acetaminophen] Social History and Habits: Social History Social [...] ??? Not on file Social History Narrative Significant Family History: No family history on file. Pertinent ROS: as per HPI Labs: Lab Results Component Value Date WBC 5.1 05/27/2017 HCT 30.9 (L) 05/27/2017 PLATELET 237 05/27/2017 INR 1.1 05/10/2017 BUN 10 05/27/2017 CREATININE 0.92 05/27/2017 ALKPHOS 95 04/27/2017 AST 15 04/27/2017 ALBUMIN 2.9 (L) 04/27/2017 BILITOT 0.8 04/27/2017 ALT 11 04/27/2017 PROT 7.9 04/27/2017 Imaging: Physical Exam: Gen: A&O x 3 CV: RRR Lungs: CTAB Abd: 2 left abdominal drains in place to bulb suction ASA: 3 Mallampati Class: 1 Assessment: 61 y.o. male w/left retroperitoneal and left abdominal abscesses s/p drain placement nowpresenting for drain checks replacements due to decreased output and increased size of abscesses. Plan: IR drain replacements Labs to be performed day of procedure: Current Medication to STOP: None Sedation: minimal (single agent only) Prophylactic antibiotic: None Additional medications for procedure: None Planned access site: Left abdomen Position: Supine Consent: Pending 05/27/2017 Marlon Multani MD - 05/25/2017 9:44 AM EST Images from the original note were not included. INTERVENTIONAL RADIOLOGY FOCUSED H&P and PRE-PROCEDURE NOTE: PCP: Odalys Laird MD Referring Provider: No ref. provider found Planned Procedure: Drain check and replacement (x 2) Procedure Indication: Drains without output, increased size of collections on CT Presenting Diagnosis/ Complaint: Daniel Urena is a 61 y.o. male with hx of morbid obesity, HTN, initially presented on 04/27 with retroperitoneal abscess, underwent IR drainage on 04/27. Had repeat imaging on 05/10 showing new abdominal collection along with persistent retroperitoneal collection. Abdominal collection was drained on 05/11. Patient presented to surgery clinic on 05/24 with report of decreasing drain output (primarily abdominal, also retroperitoneal) and LLQ pressure. Plan for check of both retroperitoneal and abdominal drains and replacement. 04/27/17 - CT-guided retroperitoneal abscess drain placed (10 Fr locking pigtail) 05/02/17 - Left retroperitoneal drain exchange, upsized to 12 Fr 05/10/17 - CT-guided left paracolic abscess drain placement, 10 Fr locking loop Past Medical/Surgical History: Patient Active Problem List Diagnosis Code ??? Retroperitoneal abscess K68.19 ??? Intra-abdominal abscess K65.1 ??? Abscess L02.91 Past Medical History: Diagnosis Date ??? HTN (hypertension) ??? Obesity Past Surgical History: Procedure Laterality Date ??? ORCHIOPEXY Left Medications: Current Facility-Administered Medications on File Prior to Encounter Medication Dose Route Frequency Provider Last Rate Last Dose ??? [COMPLETED] iohexol (OMNIPAQUE) 350 mg/mL solution 0-200 mL 0-200 mL Intravenous Once PRN Rashmi Browning MD 120 mL at 05/24/17 1614 Current Outpatient Prescriptions on File Prior to Encounter Medication Sig Dispense Refill ??? ciprofloxacin (CIPRO) 500 mg Tablet Take 1 tablet by mouth 2 times daily for 28 days. 56 tablet 0 ??? metroNIDAZOLE (FLAGYL) 500 mg Tablet Take 1 tablet by mouth 3 times daily for 28 days. 84 tablet0 Allergies: Tylenol [acetaminophen] Social History and Habits: Social History Social [...] ??? Not on file Social History Narrative Significant Family History: No family history on file. Pertinent ROS: as per HPI Labs: Lab Results Component Value Date WBC 7.2 05/25/2017 HCT 28.3 (L) 05/25/2017 PLATELET 290 05/25/2017 INR 1.1 05/10/2017 BUN 16 05/24/2017 CREATININE 1.23 05/24/2017 ALKPHOS 95 04/27/2017 AST 15 04/27/2017 ALBUMIN 2.9 (L) 04/27/2017 BILITOT 0.8 04/27/2017 ALT 11 04/27/2017 PROT 7.9 04/27/2017 Imaging: Physical Exam: Gen: A&O x 3 CV: RRR Lungs: CTAB Abd: 2 left abdominal drains in place to bulb suction ASA: 3 Mallampati Class: 1 Assessment: 61 y.o. male w/left retroperitoneal and left abdominal abscesses s/p drain placement nowpresenting for drain checks replacements due to decreased output and increased size of abscesses. Plan: IR drain check/drain replacement Labs to be performed day of procedure: Current Medication to STOP: None Sedation: minimal (single agent only) Prophylactic antibiotic: None Additional medications for procedure: None Planned access site: Left abdomen Position: Supine Consent: Pending 05/25/2017 Price Juárez MD - 05/24/2017 6:21 PM EST GENERAL SURGERY SERVICE H&P ID: Daniel Urena is a 61 y.o. Male with increasing left retroperitoneal and paracolic abscesses HISTORY OF PRESENT ILLNESS: Daniel Urena is a 61-year-old male with [...] endorse back pain that is his baseline. PMHx: Past Medical History: Diagnosis Date ??? HTN (hypertension) ??? Obesity PSHx: Past Surgical History: Procedure Laterality Date ??? ORCHIOPEXY Left HOME MEDICATIONS: No prescriptions prior to admission. ALLERGIES: Allergies Allergen Reactions ??? Tylenol [Acetaminophen] Causes acid reflux FAMILY HISTORY: Non contributory SOCIAL HISTORY: Alcohol: social drinker Tobacco: unknown tobacco use Drug: no history of illicit drug use REVIEW OF SYSTEMS: complete 10 system ROS performed with pertinent findings below. Pertinent items are noted in HPI. PHYSICAL EXAM: VITALS: Last value Range last 24 hrs Temperature Temp: [36.3 ??C (97.3 ??F)] Heart Rate Heart Rate: [127] Blood Pressure BP: (126)/(69) Respiratory Rate Resp: -- SpO2 SpO2: [98 %] GENERAL: alert, appears stated age and cooperative HEAD: Normocephalic, without obvious abnormality, atraumatic FACE: Pupils: equal, round, reactive to light, no periorbital ecchymoses; LUNG: equal, clear breath sounds bilaterally and no crepitus CARDIAC: Regular rate and rhythm ABDOMEN: soft, non-tender; bowel sounds normal; no masses, no organomegaly SKIN: warm and well perfused NEURO: Grossly normal LABORATORY: No results for input(s): WBC, HGB, HCT, PLATELET, PT, INR, PTT in the last 72 hours. No results for input(s): NA, K, CL, CO2, BUN, CREATININE, GLUCOSE, CALCIUM, MAGNESIUM, PHOS in the last [address] RADIOLOGY: CT Abdomen/Pelvis 05/24/2017 Interval marked enlargement of the large left retroperitoneal and left paracolic gutter abscesses with well-positioned pigtail drains. The left psoas abscess has mildly increased in size and is in continuity with the left retroperitoneal abscess. ASSESSMENT/PLAN: Daniel Urena is a 61-year-old male with increasing left paracolic gutter and left retroperitoneal abscesses as demonstrated on CT of the abdomen and pelvis this afternoon. After discussing management options with the patient, he has agreed to be admitted to the hospital. Interventional radiology will attempt to drain these abscesses and rewire his LATOYA drains tomorrow morning. I have already discussed this plan with the interventional radiology fellow on- call. He will be n.p.o. At midnight for this. He is amenable to surgical intervention early next week in an attempt to resolve this issue. He will continue on his ciprofloxacin and Flagyl while in the hospital. NEURO: PRN Motrin and Tramadol for pain control PULM: encourage IS CARDIAC: hemodynamically stable FEN/GI: lactated Ringer's at 75 mL/hr once NPO at midnight -Diet: Carb Control diet 60/60/75 CHO counting level 2 NPO diet (Give Meds) -NBO: ordered RENAL: No active issues HEME: stable, trend H/H ID: Continue Cipro and Flagyl ENDO: JOYCE PROPHYLAXIS: 1. DVT prophylaxis: Mechanical compression, Lovenox to start after IR procedure 2. GI prophylaxis: None DISPO/Discharge Planning: TBD FULL CODE CONSULTS: Interventional Radiology Price Juárez MD 05/24/2017 documented in this encounter Procedure Notes Jorge Sr MD - 05/27/2017 5:10 PM EST IR PROCEDURE NOTE Procedure: Exchange of pigtail drainage catheters. Indication for Procedure: Per Dr. Amado, Daniel Urena is a 61 y.o. male with hx of morbid obesity, HTN, initially presented on 04/27 withretroperitoneal abscess, underwent IR drainage on 04/27. Had repeat imaging on 05/10 showing new abdominal collection along with persistent retroperitoneal collection. Abdominal collection was drained on 05/11. Patient presented to surgery clinic on 05/24 with report of decreasing drain output (primarilyabdominal, also retroperitoneal) and LLQ pressure. ?? Now [...] drains. Maximum sterile barrier technique was used throughout. Contrast injected via the more posterior drainage catheter showed pigtail in fluid containing space. Catheter was cut and removed over a guide wire. A new 12Fr locking loopcatheter was placed via the guide wire, position confirmed with contrast injection. Catheter was anchored with suture and connected to bulb drainage. The same procedure was used to exchange the more anterior drainage catheter. Another locking loop 12Fr catheter was placed. The catheter was also within a cavity with fluid, position confirmed with contrast injection. Catheter was anchored with suture and connected to bulb drainage. Medications: 1% Lidocaine <10ccs subcutaneous. Est Blood Loss: <5cc. Complications: No immediate. Impression: Exchange of pigtail drainage catheters, both 12Fr. Resident/Fellow: Dr. Mayer Attending: Dr. Remberto Horn performed this procedure. documented in this encounter Miscellaneous Notes Plan of Care - Tracy Henley RN - 05/27/2017 3:12 AM EST Problem: Patient Care Overview Goal: Plan of Care Review Outcome: Ongoing (Interventions Implemented as Appropriate) 05/27/17 0307 Coping/Psychosocial Plan Of Care Reviewed With patient Plan of Care Review Progress no change OUTCOME EVALUATION NOTE: OUTCOME SUMMARY: Daniel had an uneventful night and slept on/off throughout the shift. VS WNL. Minimal chronic back pain overnight, refusing PRN pain meds. Left side #1 LATOYA drain continues to not hold suction when squeezed. New stopcock applied but was not the source of the leak. Small amount of creamy, nunes liquid present out of both LATOYA drains. #2 LATOYA drain flushed with 5mL NS per MD order. PLAN MOVING FORWARD: Kept NPO for washout/drainage/and new drain placement in OR this AM INDIVIDUALIZED FALL PREVENTION INTERVENTIONS: Patient-specific fall risk factors per assessment: [current deficits]: unfam env, tubing/drains Assistance [level of assistance required for transfers and ambulation]: indep Supervision [direct monitoring required during toileting and ADLs]: Intermittent Surveillance [continuous indirect monitoring]: Safety rounding Patient-specific fall prevention interventions for sensory deficits provided, if applicable: n/a CPG GOAL OUTCOME EVALUATION: Plan of Care - Juanita Shi RN - 05/26/2017 2:48 AM EST Problem: Patient Care Overview Goal: Plan of Care Review Outcome: Ongoing (Interventions Implemented as Appropriate) 05/25/172033 Coping/Psychosocial Plan Of Care Reviewed With patient OUTCOME EVALUATION NOTE: OUTCOME SUMMARY: Pt had a good night, Care was clustered to promote rest and VSS. LATOYA drains putting out small amountsof creamy nunes liquid. He is voiding adequate amounts into the urinal. Denies pain or nausea PLAN MOVING FORWARD: Encourage OOB, OR on Saturday for a washout, monitor LATOYA drain output INDIVIDUALIZED FALL PREVENTION INTERVENTIONS: Patient-specific fall risk factors per assessment: [current deficits]: Lines, drains Assistance [level of assistance required for transfers and ambulation]: I Supervision [direct monitoring required during toileting and ADLs]: none Surveillance [continuous indirect monitoring]: Masimo Patient-specific fall prevention interventions for sensory deficits provided, if applicable: Non skid socks on, hourly rounding done, call eaton within reach CPG GOAL OUTCOME EVALUATION: Brief Op Note - Marlon Multani MD - 05/25/2017 1:36 PM EST INTERVENTIONAL RADIOLOGY BRIEF PROCEDURE NOTE Patient Name: Daniel Urena : 1955 Case Date: 05/25/2017 Operators: Resident/Fellow: Nerissa Attending: Dr. Salinas Post-operative diagnosis/Indication: Retroperitoneal and abdominal abscesses Name of Procedure Performed: - Retroperitoneal drain exchange (12Fr) - Exchange and upsize of abdominal drain (10 Fr > 12 Fr) Findings of the procedure: Persistent collections in the left retroperitoneum and left paracolic gutter. No fistula seen. EBL: <10 mL Sedation: Single agent Medications: Lidocaine 1% <10 mL SQ, Fentanyl 75 mcg IV Antibiotic Prophylaxis: None Contrast: 20cc Omnipaque 350 Complications: No immediate Plan/Disposition: Return to floor Condition: Stable FULL PROCEDURE NOTE TO FOLLOW IN IMAGE REPORT Plan of Care - Suki Vidal RN - 05/25/2017 11:43 AM EST Problem: Patient Care Overview Goal: Plan of Care Review Outcome: Ongoing (Interventions Implemented as Appropriate) 05/25/17 0922 Coping/Psychosocial Plan Of Care Reviewed With patient OUTCOME EVALUATION NOTE: OUTCOME SUMMARY: Patient NPO for procedure today, offers no complaints, returned from IR with LATOYA repostioned and copious amount of drainage noted from LATOYA drains, (see I&O), requested sample sent to lab of ascites fluid. Diet changed to reg PLAN MOVING FORWARD: Assess safety, assess LATOYA output, INDIVIDUALIZED FALL PREVENTION INTERVENTIONS: Patient-specific fall risk factors per assessment: [current deficits]: Gait limiting equipment Assistance [level of assistance required for transfers and ambulation]: independent Supervision [direct monitoring required during toileting and ADLs]: independent Surveillance [continuous indirect monitoring]: ramos Flaherty Patient-specific fall prevention interventions for sensory deficits provided, if applicable: NA CPG GOAL OUTCOME EVALUATION: Plan of Care - Juanita Shi RN - 05/25/2017 4:33 AM EST Problem: Patient Care Overview Goal: Plan of Care Review Outcome: Ongoing (Interventions Implemented as Appropriate) 05/24/172144 Coping/Psychosocial Plan Of Care Reviewed With patient OUTCOME EVALUATION NOTE: OUTCOME SUMMARY: Pt had a good night, was admitted at change of shift from the clinic. He is A&Ox4 and VSS. Has 2JP drains on the left side, putting out none from anterior and minimal from posterior. Currently denies pain or nausea. Became NPO at 0000 for IR procedure today. He is voiding adequately into the urinal. PLAN MOVING FORWARD: IR today, OR maybe Saturday, monitor LATOYA drain output INDIVIDUALIZED FALL PREVENTION INTERVENTIONS: Patient-specific fall risk factors per assessment: [current deficits]: Lines/drains, new surroundings Assistance [level of assistance required for transfers and ambulation]: Independent/stand by Supervision [direct monitoring required during toileting and ADLs]: none Surveillance [continuous indirect monitoring]: Masimo Patient-specific fall prevention interventions for sensory deficits provided, if applicable: Non skid socks on, call eaton within reach, hourly rounding done CPG GOAL OUTCOME EVALUATION: documented in this encounter Plan of Treatment Scheduled Orders Name Type Priority Associated Diagnoses Order S chedule EKG 12 Lead ECG Routine Intra-abdominal abscess One Time for 1 Occurrences Retroperitoneal abscess star ting 05/24/2017 until 05/24/2017 documented as of this encounter Procedures Procedure Name Priority Date/Time Associated Comments Diagnosis 1ST PRESSMAN SCAN 05/31/2017 12:00 Res ults for this AM EST procedure are i n the results section. IR DRAIN Routine 05/27/2017 5:26 PM Results f or this CHECK/CHANGE/REMOVE EST procedur e are in the results section. HEMOGRAM Routine 05/27/2017 5:48 AM Results f or this EST procedure are i n the results section. DIFFERENTIAL, Routine 05/27/2017 5:48 AM Results for this AUTOMATED EST procedure are i n the results section. CBC (WITH DIFF) Routine 05/27/2017 5:48 AM EST BASIC METABOLIC PANEL Routine 05/27/2017 5:48 AM Results for this (NON-FASTING) EST procedure are in the results section. HEMOGRAM Routine 05/26/2017 5:30 AM Results f or this EST procedure are i n the results section. DIFFERENTIAL, Routine 05/26/2017 5:30 AM Results for this AUTOMATED EST procedure are i n the results section. CBC (WITH DIFF) Routine 05/26/2017 5:30 AM EST ELECTROLYTES PANEL Routine 05/26/2017 5:30 AM Res ults for this EST procedure are i n the results section. ANAEROBIC CULTURE Routine 05/25/2017 2:47 PM Resu lts for this EST procedure are i n the results section. BODY FLUID CULTURE, Routine 05/25/2017 2:47 PM AEROBIC & ANAEROBIC EST BODY FLUID CULTURE, Routine 05/25/2017 2:47 PM Re sults for this AEROBIC EST procedure are i n the results section. IR DRAIN Routine 05/25/2017 1:25 PM Results f or this CHECK/CHANGE/REMOVE EST procedur e are in the results section. ABORH RECHECK STATUS Routine 05/25/2017 8:46 AM R esults for this EST procedure are i n the results section. HEMOGRAM Routine 05/25/2017 8:46 AM Results f or this EST procedure are i n the results section. DIFFERENTIAL, Routine 05/25/2017 8:46 AM Results for this AUTOMATED EST procedure are i n the results section. ABO/RH TYPING Routine 05/25/2017 8:46 AM Results for this EST procedure are i n the results section. CBC (WITH DIFF) Routine 05/25/2017 8:46 AM EST ANTIBODY SCREEN Routine 05/25/2017 8:46 AM Result s for this EST procedure are i n the results section. TYPE AND SCREEN Routine 05/25/2017 8:46 AM ([facility]) EST ELECTROLYTES PANEL Routine 05/25/2017 8:46 AM Res ults for this EST procedure are i n the results section. HEMOGRAM Routine 05/24/2017 8:00 PM Results f or this EST procedure are i n the results section. DIFFERENTIAL, Routine 05/24/2017 8:00 PM Results for this AUTOMATED EST procedure are i n the results section. CBC (WITH DIFF) Routine 05/24/2017 8:00 PM EST BASIC METABOLIC PANEL Routine 05/24/2017 8:00 PM Results for this (NON-FASTING) EST procedure are in the results section. documented in this encounter Results SCAN DOC: 1ST PRESSMAN (05/31/2017 12:00 AM EST) Narrative 05/31/2017 12:00 AM EST This result has an attachment that is no t available. Ordered by an unspecified provider. Scanning Provider MEDIA MGR SCAN EXT ORDR/RSLT IR Drain Check/Change/Remove (05/27/2017 5:26 PM EST) Anatomical Region Laterality Modality Head X-Ray Angiography Specimen (Source) Anatomical Location Collection Method / Collectio n Time Received Time / Laterality Volume Narrative 05/27/2017 5:28 PM EST IR PROCEDURE NOTE ?? Procedure: Exchange of pigtail drainage catheters. ?? Indication for Procedure: Per Daniel Mccoy??is a 61 y.o.??male??wi th hx of morbid obesity, HTN, initially presented on 04/27 with retrop eritoneal abscess, underwent IR drainage on 04/27. Had repeat imaging on 05/10 showing new abdominal collection along with persistent retrope ritoneal collection. Abdominal collection was drained on 05/11. Patient presented to surgery clinic on 05/24 with report of decreasing drain out put (primarily abdominal, also retroperitoneal) and LLQ pressure. ? Now with drains cracked at hubs. ? Plan for check of both retroperitoneal a nd abdominal drains and replacement. ? 04/27/17 - CT-guided retroperitoneal abs cess drain placed (10 Fr locking pigtail) ? 05/02/17 - Left retroperitoneal drain exch viri, upsized to 12 Fr ? 05/10/17 - CT-guided left paracolic absce ss drain placement, 10 Fr locking loop ? 05/25/17 - Both drains swapped to 12 Fr ?? Procedure events and findings: After obt aining informed consent, patient was positioned right side down on proced ure table and sterile prep and drape performed of both drains. ??Maximu m sterile barrier technique was used throughout. ??Contrast injected via the more posterior drainage catheter showed pigtail in fluid contain ing space. ??Catheter was cut and removed over a guide wire. ??A new 12Fr locking loop catheter was placed via the guide wire, position confirmed w ith contrast injection. ??Catheter was anchored with suture and connected t o bulb drainage. ?? The same procedure was used to exchange the more anterior drainage catheter. ??Another locking loop 12Fr ca theter was placed. ??The catheter was also within a cavity with fluid, pos ition confirmed with contrast injection. ??Catheter was anchored with suture and connected to bulb drainage. ?? Medications: ??1% Lidocaine <10ccs subcu taneous. ?? Est Blood Loss: <5cc. ?? Complications: ??No immediate. ?? Impression: Exchange of pigtail drainage catheters, both 12Fr. ?? Resident/Fellow: ??Dr. Mayer ?? Attending: I, Dr. Sr performed this procedure. ? Sumeet Salinas MD IMG IR ORDERABLES Differential, Automated (05/27/2017 5:48 AM EST) athologist Signature Neutrophils % 52.7 % [facility] Neutr Abs (ANC) 2.68 1.70 - [facility] 6.10 [facility] x10(3)/[facility]OR[facility] Lymphocytes % 32.6 % [facility] Lymphocytes Abs 1.7 0.9 - 3.[address] [facility] x10(3)/[facility] LABORATORY Monocytes % 9.8 % [facility] Monocyte Abs 0.5 0.3 - 0.[address] [facility] x10(3)/[facility]OR[facility] Eosinophils % 3.3 % [facility] Eosinophils Abs 0.2 0.0 - 0.[address] [facility] x10(3)/[facility]OR[facility] Basophils % 0.8 % [facility] Basophils Abs 0.0 0.0 - 0.[address] [facility] x10(3)/[facility] Immature Gran % 0.80 % [facility] Comment: Immature granulocytes(IG's)percentage an d absolute count will include metamyelocytes, myelocytes, and promyelo cytes. Blood smears from CBCs yielding IG's will be scanned manually for concor dance. If this scan disagrees with the automated IG or if promyelocytes are not ed, a manual differential will be performed. Mehnaz Gran Abs 0.04 0.00 - 0.04 x10(3)/[facility] MAR Y ROBERT WOOD [facility] LABORATORY Specimen Anatomical Collection Method Collection Time Receive d Time (Source) Location / / Volume Laterality Blood specimen 05/27/2017 5:48 AM 018 5:54 (specimen) EST AM EST Resulting Agency Comment Spec In Lab Gilson Mcgee MD HEMATOLOGY ORDERABLES Performing Organization Address City/State/[place] [address] (ABNORMAL) Hemogram (05/27/2017 5:48 AM EST) Analysis Performed At Patho logist Time Signature WBC 5.1 4.0 - 9.[address] [facility] x10(3)/[facility] LABORATORY RBC 3.45 (L) 4.58 - [facility] 5.54 [facility] x10(6)/[facility] LABORATORY Hemoglobin 10.1 (L) 13.7 - [facility] 16.5 gm/dL [facility] LABORATORY Hematocrit 30.9 (L) 40.5 - [facility] 48.5 % [facility] LABORATORY MCV 89.6 82.9 - [place] JUNGCK 93.1 [facility] LABORATORY MCH 29.3 27.5 - [place] JUNGCK 32.1 pg [facility] LABORATORY MCHC 32.7 32.0 - [place] DREW 35.7 gm/dL [facility] LABORATORY Platelets 237 145 - 357 [place] x10(3)/[facility] LABORATORY RDWSD 60.9 (H) 36.0 - [place] DREW 45.0 [facility] LABORATORY RDWCV 18.6 (H) 11.4 - [place] DREW 13.8 % [facility] LABORATORY MPV 8.7 7.6 - 12.9 [facility] LABORATORY nRBC % Auto 0.0 % [facility] LABORATORY nRBC Abs Auto 0.000 0.000 - [place] DREW 0.000 [facility] x10(3)/[facility] LABORATORY Specimen Anatomical Collection Method Collection Time Receive d Time (Source) Location / / Volume Laterality Blood specimen 05/27/2017 5:48 AM 018 5:54 (specimen) EST AM EST Resulting Agency Comment Spec In Lab Gilson Mcgee MD HEMATOLOGY ORDERABLES Performing Organization Address City/State/ZIP Code Phon e Number [place] [id number] HOSPITAL LABORATORY [address] Basic Metabolic Panel (non-fasting) (05/27/2017 5:48 AM EST) P athologist Signature Glucose Lvl 94 65 - [address] [facility] mg/dL [facility] LABORATORY Comment: Diabetes: >=200 mg/dL plus symp toms BUN 10 10 - 20 mg/dL [facility] LABORATORY Creatinine 0.92 0.80 - 1.50 mg/dL [facility] Sodium 137 135 - 145 mmol/L [facility] LABORATORY Potassium 4.1 3.5 - 5.0 mmol/L [facility] LABORATORY Comment: Please note: ??Patients with WBC >100,00 0 may have falsely elevated Potassium levels. ??For accurate Potassium quantif ication in these patients send serum separator tube (gold top) for subsequent determinations. ??Contact the Clinical Chemistry Laboratory if there are any qu estions. Chloride 101 98 - 107 mmol/L [facility] LABORATORY CO2 22 22 - 31 mmol/L [facility] LABORATORY Anion Gap 14 5 - 15 mmol/L [facility] LABORATORY Calcium 8.8 8.5 - 10.5 mg/dL [facility] LABORATORY Estimated GFR >60 >=60 [facility] LABORATORY Comment: The reported eGFR should be multiplied b y 1.2 for patients. The MDRD is not an appropriate measure o f renal function for patients with body mass extremes or in patients with acute kidney failure. http://[employer]/DHnkdep http://[employer]/DHMCnkf Specimen Anatomical Collection Method Collection Time Receive d Time (Source) Location / / Volume Laterality Blood specimen 05/27/2017 5:48 AM 018 5:54 (specimen) EST AM EST Resulting Agency Comment Spec In Lab Gilson Mcgee MD CHEMISTRY ORDERABLES Performing Organization Address City/State/ZIP Code Phon e Number [place] [phone] HOSPITAL LABORATORY Drive Differential, Automated (05/26/2017 5:30 AM EST) P athologist Signature Neutrophils % 55.8 % [facility] LABORATORY Neutr Abs (ANC) 3.02 1.70 - [facility] 6.10 [facility] x10(3)/[facility] LABORATORY Lymphocytes % 30.4 % [facility] LABORATORY Lymphocytes Abs 1.6 0.9 - 3.[address] [facility] x10(3)/[facility] LABORATORY Monocytes % 9.6 % [facility] LABORATORY Monocyte Abs 0.5 0.3 - 0.[address] [facility] x10(3)/[facility] LABORATORY Eosinophils % 3.0 % [facility] LABORATORY Eosinophils Abs 0.2 0.0 - 0.[address] [facility] x10(3)/[facility] LABORATORY Basophils % 0.6 % [facility] LABORATORY Basophils Abs 0.0 0.0 - 0.[address] [facility] x10(3)/[facility] LABORATORY Immature Gran % 0.60 % [facility] LABORATORY Comment: Immature granulocytes(IG's)percentage an d absolute count will include metamyelocytes, myelocytes, and promyelo cytes. Blood smears from CBCs yielding IG's will be scanned manually for concor dance. If this scan disagrees with the automated IG or if promyelocytes are not ed, a manual differential will be performed. Mehnaz Gran Abs 0.03 0.00 - 0.04 x10(3)/[facility]ATORY Specimen Anatomical Collection Method Collection Time Receive d Time (Source) Location / / Volume Laterality Blood specimen 05/26/2017 5:30 AM 018 5:54 (specimen) EST AM EST Resulting Agency Comment Spec In Lab Gilson Mcgee MD HEMATOLOGY ORDERABLES Performing Organization Address City/State/Z[place] [address] (ABNORMAL) Hemogram (05/26/2017 5:30 AM EST) Analysis Performed At Patho logist Time Signature WBC 5.4 4.0 - 9.[address] [facility] x10(3)/[facility] LABORATORY RBC 3.24 (L) 4.58 - [facility] x10(6)/[facility] LABORATORY Hemoglobin 9.6 (L) 13.7 - [facility]m/dL [facility] LABORATORY Hematocrit 29.3 (L) 40.5 - [facility] 48.5 % [facility]ORATORY MCV 90.4 82.9 - [facility] 93.1 [facility] LABORATORY MCH 29.6 27.5 - [place] DESTINY 32.1 pg [facility] LABORATORY MCHC 32.8 32.0 - [facility] 35.7 gm/dL [facility] LABORATORY Platelets 284 145 - [address] [facility] x10(3)/[facility] RDWSD 61.7 (H) 36.0 - [facility] 45.0 [facility] RDWCV 18.6 (H) 11.4 - [facility] 13.8 % [facility] LABORATORY MPV 8.5 7.6 - 12.9 [facility] LABORATORY nRBC % Auto 0.0 % [facility] LABORATORY nRBC Abs Auto 0.000 0.000 - [facility] 0.000 [facility] x10(3)/[facility] LABORATORY Specimen Anatomical Collection Method Collection Time Receive d Time (Source) Location / / Volume Laterality Blood specimen 05/26/2017 5:30 AM 018 5:54 (specimen) EST AM EST Resulting Agency Comment Spec In Lab Gilson Mcgee MD HEMATOLOGY ORDERABLES Performing Organization Address City/[facility]/ZIP [place] [address] [facility] LAB[address]ATORY Drive Electrolytes panel (05/26/2017 5:30 AM EST) P athologist Signature Sodium 137 135 - [address] [facility] mmol/L [facility] LABORATORY Potassium 3.9 3.5 - 5.[address] [facility] mmol/[facility] LABORATORY Comment: Please note: ??Patients with WBC >100,00 0 may have falsely elevated Potassium levels. ??For accurate Potassium quantif ication in these patients send serum separator tube (gold top) for subsequent determinations. ??Contact the Clinical Chemistry Laboratory if there are any qu estions. Chloride 101 98 - 107 mmol/L [facility] LABORATORY CO2 24 22 - 31 mmol/L [facility] LABORATORY Anion Gap 12 5 - 15 mmol/L [facility] LABORATORY Specimen Anatomical Collection Method Collection Time Receive d Time (Source) Location / / Volume Laterality Blood specimen 05/26/2017 5:30 AM 018 5:54 (specimen) EST AM EST Resulting Agency Comment Spec In Lab Gilson Mcgee MD CHEMISTRY ORDERABLES Performing Organization Address City/State/ZIP Code Phon e Number [place] [phone] HOSPITAL LABORATORY Drive Anaerobic Culture (05/25/2017 2:47 PM EST) Patholo gist Method Time Signature Anaerobic No anaerobic [facility] Culture organisms [facility] LABORATORY Specimen (Source) Anatomical Collection Method Collection Time Re ceived Time Location / / Volume Laterality Peritoneal fluid 05/25/2017 2:47 05/25/19 18 3:22 specimen PM EST PM EST (specimen) Resulting Agency Comment Spec In Lab Gilson Mcgee MD MICROBIOLOGY - GENERAL ORDER TIAN Performing Organization Address City/[facility]/ZIP Code Phon e Number [address] (ABNORMAL) Body Fluid Culture, Aerobic (05/25/2017 2:47 PM EST) Component Value Ref Test Analysis [facility] Range Method Time Signature Body Fluid Rare Coagulase [place] Culture negative SHELBY Staphylococcus [facility] species (A) HOSPITAL LABORATORY Organism Coagulase [place] negative SHELBY Staphylococcus [facility] species (A) [facility] LABORATORY Specimen (Source) Anatomical Collection Method Collection Time Re ceived Time Location / / Volume Laterality Peritoneal fluid 05/25/2017 2:47 05/25/19 18 3:22 specimen PM EST PM EST (specimen) Comment: NOTE ON LABELS L LATOYA POSTERIOR Resulting Agency Comment Spec In Lab Gilson Mcgee MD MICROBIOLOGY - GENERAL ORDER TIAN Performing Organization Address City/[facility]/[place] [address] IR Drain Check/Change/Remove (05/25/2017 1:25 PM EST) Anatomical Region Laterality Modality Head X-Ray Angiography Specimen (Source) Anatomical Location Collection Method / Collectio n Time Received Time / Laterality Volume Narrative 05/26/2017 9:13 PM EST IR Procedure Note ?? Procedure: Left retroperitoneal and left abdominal drain exchange ?? History/indication: ??61 yr old M patien t, presenting with abdominal pain; CT scan showed a large collection in the left retroperitoneum and left paracolic gutter. Drains placed in left retroperitoneal collection and left lower quadrant abominal collection. Now, drains with decreasing output, increased size of collections on recent CT. ?? Technique: ?? After obtaining informed c onsent the patient was positioned supine with the left side elevated. The existing drains and surrounding skin were prepped and draped in a steril e fashion. 1% lidocaine was used as local anesthesia. The patient receive d split doses of intravenous fentanyl from the IR nurse while pulse, pressure, end tidal CO2 parameters and oxygen saturation were continuously monitored. Contrast was injected in both the retrop eritoneal and abdominal drains. Over an Amplatz wire, the left retroperi toneal drain was exchanged for a 12 Fr drainage catheter. The locking loo p was formed and 10 cc of nunes, purulent fluid was aspirated by syringe. The catheter was secured to the adjacent skin with 2-0 nylon suture mate rial and connected to bulb drainage. Attention was then directed to the left lower abdominal wall drain. Over an Amplatz wire, the abdominal drain was exchanged and upsized to a 12 Fr drainage catheter. The locking loop was formed and 10 cc of nunes, purulent fluid was aspirated by syringe. The cath eter was secured to the adjacent skin with 2-0 nylon suture material and connected to bulb drainage. The patient tolerated the procedure well . ?? Complications: ??None immediate; ??EBL=0 Medications: 1% lidocaine (<10 cc); Fent anyl 75 mcg Contrast: 20cc Omnipaque 350 Fluoroscopy time: ??4.1 minutes Impression: - Retroperitoneal drain exchange (12Fr) to bulb drainage - Exchange and upsize of abdominal drain (10 Fr > 12 Fr) to bulb drainage - Plan: - Flush each drain with 5-10 cc no rmal saline q 8 hours - Monitor and document drain output q sh ift - Drain check in 2-3 weeks Fellow: Nerissa Attending: Dr. Salinas I, Dr. Salinas, was present throughout e procedure. I was present during the intraservice ti me as documented by the IR Nurse. ?? Sumeet Salinas MD [facility] IR ORDERABLES ABORH Recheck Status (05/25/2017 8:46 AM EST) [facility] Method Time Signature ABORH Recheck Order Placed [facility] LABORATORY ABORH Type Complete [facility] LABORATORY Specimen Anatomical Collection Method Collection Time Receive d Time (Source) Location / / Volume Laterality Blood specimen 05/25/2017 8:46 AM 018 9:07 (specimen) EST AM EST Resulting Agency Comment Spec In Lab Gilson Mcgee MD BLOOD BANK ORDERABLES Performing Organization Address City/State/Z[place] [address] Antibody screen (05/25/2017 8:46 AM EST) [facility] Method Time Signature Ab Screen Negative [facility] LABORATORY Expires at 05/28/2017 ANTW[place] DREW [id number] on: [facility] LABORATORY Specimen Anatomical Collection Method Collection Time Receive d Time (Source) Location / / Volume Laterality Blood specimen 05/25/2017 8:46 AM 018 9:07 (specimen) EST AM EST Resulting Agency Comment Spec In Lab Gilson Mcgee MD BLOOD BANK ORDERABLES Performing Organization Address City/[facility]/ZIP Code Phon e Number [address] ABO/Rh Typing (05/25/2017 8:46 AM EST) P athologist Signature ABORh Type A Pos [facility] LABORATORY Specimen Anatomical Collection Method Collection Time Receive d Time (Source) Location / / Volume Laterality Blood specimen 05/25/2017 8:46 AM 018 9:07 (specimen) EST AM EST Resulting Agency Comment Spec In Lab Gilson Mgcee MD BLOOD BANK ORDERABLES Performing Organization Address City/[facility] Code Phon e Number [address] Differential, Automated (05/25/2017 8:46 AM EST) P athologist Signature Neutrophils % 62.6 % [facility] LABORATORY Neutr Abs (ANC) 4.54 1.70 - [facility] 6.10 [facility] x10(3)/[facility] LABORATORY Lymphocytes % 24.1 % [facility] LABORATORY Lymphocytes Abs 1.8 0.9 - 3.[address] [facility] x10(3)/[facility] LABORATORY Monocytes % 10.2 % [facility] LABORATORY Monocyte Abs 0.7 0.3 - 0.[address] [facility] x10(3)/[facility] LABORATORY Eosinophils % 2.1 % [facility] LABORATORY Eosinophils Abs 0.2 0.0 - 0.[address] [facility] x10(3)/[facility] LABORATORY Basophils % 0.4 % [facility] LABORATORY Basophils Abs 0.0 0.0 - 0.[address] [facility] x10(3)/[facility] LABORATORY Immature Gran % 0.60 % [facility] LABORATORY Comment: Immature granulocytes(IG's)percentage an d absolute count will include metamyelocytes, myelocytes, and promyelo cytes. Blood smears from CBCs yielding IG's will be scanned manually for concor dance. If this scan disagrees with the automated IG or if promyelocytes are not ed, a manual differential will be performed. Mehnaz Gran Abs 0.04 0.00 - 0.04 x10(3)/[facility]ORY Specimen Anatomical Collection Method Collection Time Receive d Time (Source) Location / / Volume Laterality Blood specimen 05/25/2017 8:46 AM 018 9:08 (specimen) EST AM EST Resulting Agency Comment Spec In Lab Gilson Mcgee MD HEMATOLOGY ORDERABLES Performing Organization Address City/State/[place] [address] (ABNORMAL) Hemogram (05/25/2017 8:46 AM EST) Analysis Performed At Patho logist Time Signature WBC 7.2 4.0 - 9.[address] [facility] x10(3)/[facility] LABORATORY RBC 3.12 (L) 4.58 - [facility] 5.54 [facility] x10(6)/[facility] LABORATORY Hemoglobin 9.4 (L) 13.7 - [facility] 16[facility] gm/dL [facility] LABORATORY Hematocrit 28.3 (L) 40.5 - [facility] 48.5 % [facility] LABORATORY MCV 90.7 82.9 - [facility] 93.1 [facility] LABORATORY MCH 30.1 27.5 - [place] DESTINY 32.1 pg [facility] LABORATORY MCHC 33.2 32.0 - [facility] 35.7 gm/dL [facility] LABORATORY Platelets 290 145 - [address] [facility] x10(3)/[facility] LABORATORY RDWSD 62.4 (H) 36.0 - [facility] 45.0 [facility] LABORATORY RDWCV 18.9 (H) 11.4 - [facility] 13.8 % [facility] LABORATORY MPV 8.6 7.6 - 12.9 [facility] LABORATORY nRBC % Auto 0.0 % [facility] LABORATORY nRBC Abs Auto 0.000 0.000 - [facility] 0.000 [facility] x10(3)/[facility] LABORATORY Specimen Anatomical Collection Method Collection Time Receive d Time (Source) Location / / Volume Laterality Blood specimen 05/25/2017 8:46 AM 018 9:08 (specimen) EST AM EST Resulting Agency Comment Spec In Lab Gilson Mcgee MD HEMATOLOGY ORDERABLES Performing Organization Address City/[facility]/ZIP [place] [address] Electrolytes panel (05/25/2017 8:46 AM EST) P athologist Signature Sodium 137 135 - [address] [facility] mmol/L [facility] LABORATORY Potassium 4.0 3.5 - 5.[address] [facility] mmol/L [facility] LABORATORY Comment: Please note: ??Patients with WBC >100,00 0 may have falsely elevated Potassium levels. ??For accurate Potassium quantif ication in these patients send serum separator tube (gold top) for subsequent determinations. ??Contact the Clinical Chemistry Laboratory if there are any qu estions. Chloride 100 98 - 107 mmol/L [facility] LABORATORY CO2 23 22 - 31 mmol/L [facility] LABORATORY Anion Gap 14 5 - 15 mmol/L [facility] LABORATORY Specimen Anatomical Collection Method Collection Time Receive d Time (Source) Location / / Volume Laterality Blood specimen 05/25/2017 8:46 AM 018 9:07 (specimen) EST AM EST Resulting Agency Comment Spec In Lab Gilson Mcgee MD CHEMISTRY ORDERABLES Performing Organization Address City/[facility]/ZIP Code Phon e Number [place] [phone] HOSPITAL LABORATORY Drive (ABNORMAL) Differential, Automated (05/24/2017 8:00 PM EST) Patholo gist Method Time Signature Neutrophils % 71.7 % [facility] LABORATORY Neutr Abs (ANC) 7.12 (H) 1.70 - [facility] 6.10 [facility] x10(3)/[facility] L LABORATORY Lymphocytes % 17.1 % [facility] LABORATORY Lymphocytes Abs 1.7 0.9 - 3.[address] [facility] x10(3)/[facility] LABORATORY Monocytes % 8.9 % [facility] LABORATORY Monocyte Abs 0.9 0.3 - 0.[address] [facility] x10(3)/[facility] LABORATORY Eosinophils % 1.5 % [facility] LABORATORY Eosinophils Abs 0.2 0.0 - 0.[address] [facility] x10(3)/[facility] LABORATORY Basophils % 0.4 % [facility] LABORATORY Basophils Abs 0.0 0.0 - 0.[address] [facility] x10(3)/[facility] LABORATORY Immature Gran % 0.40 % [facility] LABORATORY Comment: Immature granulocytes(IG's)percentage an d absolute count will include metamyelocytes, myelocytes, and promyelo cytes. Blood smears from CBCs yielding IG's will be scanned manually for concor dance. If this scan disagrees with the automated IG or if promyelocytes are not ed, a manual differential will be performed. Mehnaz Gran Abs 0.04 0.00 - 0.04 x10(3)/[facility] LAB[facility]ORY Specimen Anatomical Collection Method Collection Time Receive d Time (Source) Location / / Volume Laterality Blood specimen 05/24/2017 8:00 PM 018 8:06 (specimen) EST PM EST Resulting Agency Comment Spec In Lab Gilson Mcgee MD HEMATOLOGY ORDERABLES Performing Organization Address City/State/Z[place] [address] (ABNORMAL) Hemogram (05/24/2017 8:00 PM EST) Analysis Performed At Patho logist Time Signature WBC 9.9 (H) 4.0 - 9.[address] [facility] x10(3)/[facility] LABORATORY RBC 3.22 (L) 4.58 - [facility] 5.54 [facility] x10(6)/[facility] LABORATORY Hemoglobin 9.4 (L) 13.7 - [facility] 16.5 gm/dL [facility] LABORATORY Hematocrit 29.3 (L) 40.5 - [facility] 48.5 % [facility] LABORATORY MCV 91.0 82.9 - [place] JUAREZCOCK 93.1 [facility] LABORATORY MCH 29.2 27.5 - [place] JUNGCK 32.1 pg [facility] LABORATORY MCHC 32.1 32.0 - [place] DREW 35.7 gm/dL [facility] LABORATORY Platelets 285 145 - [address] [facility] x10(3)/[facility] LABORATORY RDWSD 62.3 (H) 36.0 - [place]TW[place] PATELDESTINY 45.0 [facility] LABORATORY RDWCV 18.7 (H) 11.4 - [place] JUNGCK 13.8 % [facility] LABORATORY MPV 8.4 7.6 - 12.9 [facility] LABORATORY nRBC % Auto 0.0 % [facility] LABORATORY nRBC Abs Auto 0.000 0.000 - [place] PATELDESTINY 0.000 [facility] x10(3)/[facility] LABORATORY Specimen Anatomical Collection Method Collection Time Receive d Time (Source) Location / / Volume Laterality Blood specimen 05/24/2017 8:00 PM 018 8:06 (specimen) EST PM EST Resulting Agency Comment Spec In Lab Gilson Mcgee MD HEMATOLOGY ORDERABLES Performing Organization Address City/State/Z[place] [address] (ABNORMAL) Basic Metabolic Panel (non-fasting) (05/24/2017 8:00 PM EST) P athologist Signature Glucose Lvl 155 65 - [address] [facility] mg/dL [facility] LABORATORY Comment: Diabetes: >=200 mg/dL plus symp toms BUN 16 10 - 20 mg/dL [facility] LABORATORY Creatinine 1.23 0.80 - 1.50 mg/dL [facility] LABORATORY Sodium 137 135 - 145 mmol/L [facility] LABORATORY Potassium 4.0 3.5 - 5.0 mmol/L [facility] LABORATORY Comment: Please note: ??Patients with WBC >100,00 0 may have falsely elevated Potassium levels. ??For accurate Potassium quantif ication in these patients send serum separator tube (gold top) for subsequent determinations. ??Contact the Clinical Chemistry Laboratory if there are any qu estions. Chloride 99 98 - 107 mmol/L [facility] LABORATORY CO2 22 22 - 31 mmol/L [facility] LABORATORY Anion Gap 16 (H) 5 - 15 mmol/L [facility] LABORATORY Calcium 8.5 8.5 - 10.5 mg/dL [facility] LABORATORY Estimated GFR 60 >=60 [facility] LABORATORY Comment: The reported eGFR should be multiplied b y 1.2 for patients. The MDRD is not an appropriate measure o f renal function for patients with body mass extremes or in patients with acute kidney failure. [email or web address] http://[employer]/DHnkf Specimen Anatomical Collection Method Collection Time Receive d Time (Source) Location / / Volume Laterality Blood specimen 05/24/2017 8:00 PM 018 8:06 (specimen) EST PM EST Resulting Agency Comment Spec In Lab Gilson Mcgee MD CHEMISTRY ORDERABLES Performing Organization Address City/State/ZIP Code Phon e Number [place] [id number] documented in this encounter Visit Diagnoses Diagnosis Intra-abdominal abscess Peritoneal abscess Retroperitoneal abscess Other retroperitoneal abscess Abscess Cellulitis and abscess of unspecified si te documented in this encounter Admitting Diagnoses Diagnosis Abscess Cellulitis and abscess of unspecified si te documented in this encounter Administered Medications Inactive Administered Medications - up to 3 most recent administrations Medication Order MAR Action Action Date Dose Rate Site ciprofloxacin (CIPRO) tablet 500 Given 05/27/2017 6:15 AM EST 50 0 mg mg 500 mg, Oral, 2 TIMES DAILY, First dose on Sat05/24/17 at 1900, Until Discontinued, Routine Given 05/26/2017 6:20 PM EST 500 mg Given 05/26/2017 6:45 AM EST 500 mg docusate sodium (COLACE) capsule 100 mg Given 05/25/2017 8:27 AM EST 100 mg 100 mg, Oral, 2 TIMES DAILY, First dose on Sat05/24/17 at 2100, Until Discontinued, Routine enoxaparin (LOVENOX) injection 40 mg Given 05/27/2017 8:28 AM EST 40 mg 40 mg, Subcutaneous, 2 TIMES DAILY, First dose (after last reorder) on Sat05/24/17 at 2100, Until Discontinued, Routine Given 05/26/2017 8:41 PM EST 40 mg Given 05/26/2017 9:45 AM EST 40 mg fentaNYL (PF) 50 mcg/mL injection 1 dose, Starting on 05/25/17 at 1227, Until 05/25/17 at 1247, Nuzhat Javed: cabinet override fentaNYL 50 mcg/mL multi-dose injection Given 05/25/2017 1:03 PM EST 25 mcg 25-50 mcg, Intravenous, EVERY 5 MIN PRN, Starting on 05/25/17 at 1226, Until 05/25/17 at 1310, Pain, per unit protocol, - Start dose 50 mcg (reduce dose to 25 mcg if history of sedation sensitivity). - Titration dose 25-50 mcg IV, (based on patient response) every 3 minutes PRN, to maintain procedural pain less than 2 per pain Scale. Maximum dose: 50 mcg/dose, 250 mcg/hour For use in Interventional Radiology (IR) only for procedural sedation with direct provider supervision and verbal order., Angio/IR (Intra-Procedure), Routine Given 05/25/2017 12:47 PM EST 50 mcg ibuprofen (ADVIL;MOTRIN) tablet 600 mg 600 mg, Oral, EVERY 6 HOURS PRN, Startin g on Sat05/24/17 at 1757, Until Sat05/27/17 at 1956, Pain, for MILD pain (1-3), Admi nister orally with milk or food to minimize GI irritation. Maximum dose of 3200 mg from all source s in 24 hours, Routine iohexol (OMNIPAQUE) 350 mg/mL solution 5 0 mL Given 05/25/2017 1:26 PM EST 20 mLs 50 mL, Other, ONCE PRN, 1 dose, Starting on 05/25/17 at 1326, Until 05/25/17 at 1326, Per Protocol, Warning Vesicant/Irritant Medication , Routine iohexol (OMNIPAQUE) 350 mg/mL solution 5 0 mL Given 05/27/2017 5:00 PM EST 20 mLs 50 mL, Other, ONCE PRN, Starting on 05/27/17 at 1711, Until Sat05/27/17 at 1956, Per Protocol, Warning Vesicant/Irritant Medication , Routine lactated Ringers infusion New Bag 05/26/2017 12:34 AM EST 75 mL/hr 75 mL/hr 75 mL/hr, Intravenous, CONTINUOUS, Starting on Sat05/24/17 at 2330, Until Sat05/26/17 at 0622, Recovery ([facility] Unit) New Bag 05/24/2017 11:24 PM EST 75 mL/hr 75 mL/hr lidocaine (XYLOCAINE) 10 mg/mL (1 %) injection Given 0 05/27/2017 5:00 PM EST 10 mg 10 mg 10 mg, Subcutaneous, ONCE, 1 dose, On Sat05/27/17 at 1615, For use in Interventional Radiology (IR) only for procedure with direct provider supervision and verbal order., Angio/IR (Intra-Procedure), Routine lidocaine (XYLOCAINE) 10 mg/mL (1 %) inj ection 3 mg 3 mg (0.3 mL), Subcutaneous, ONCE PRN, 1 dose, Startin g on Sat05/24/17 at 2003, Until Sat05/27/17 at 1956, for discomfort with PIV ins ertion, Recovery ([facility]), Routine lidocaine (XYLOCAINE) 2 % jelly Given 05/25/2017 12:40 PM EST Topical (Top), EVERY 4 HOURS PRN, Pain, Starting on 05/25/17 at 1226, Until 05/25/17 at 1313, For use in Interventional Radiology (IR) only for procedure with direct provider supervision and verbal order., Angio/IR (Intra-Procedure) lidocaine (XYLOCAINE) 2 % jelly Given 05/27/2017 4:29 PM EST Topical (Top), EVERY 4 HOURS PRN, Pain, Starting on Sat05/27/17 at 1554, Until Sat05/27/17 at 1724, For use in Interventional Radiology (IR) only for procedure with direct provider supervision and verbal order., Angio/IR (Intra-Procedure) metroNIDAZOLE (FLAGYL) tablet 500 mg Given 05/27/2017 3:29 PM EST 500 mg 500 mg, Oral, 3 TIMES DAILY, First dose on Sat05/24/17 at 2100, Until Discontinued, Routine Given 05/27/2017 8:28 AM EST 500 mg Given 05/26/2017 8:41 PM EST 500 mg ondansetron (ZOFRAN) injection 4 mg 4 mg, Intravenous, EVERY 8 HOURS PRN, St arting on Sat05/24/17 at 2002, Until Sat05/27/17 at 1955, Nausea, May repeat time s one in 30 minutes if ineffective. If multiple antiemetics are ordered, use ondanstron first , Recovery ([facility] Unit) ondansetron (ZOFRAN) tablet 4 mg 4 mg, Oral, EVERY 8 HOURS PRN, Starting on Sat05/24/17 at 2002, Until Sat05/27/17 at 1955, Nausea, Vomiting, If multipl e antiemetics are ordered, use ondansetron first. PO Preferred. If patient unable to take PO, may give IV if ordered. May repeat times one in 45 minutes if ineffe ctive., Recovery ([facility]), Routine sodium chloride 0.9 % flush 5 mL Given 05/27/2017 8:29 AM EST 5 mLs 5 mL, Intravenous, 2 TIMES DAILY, First dose on Sat05/24/17 at 2100, Until Discontinued, Recovery ([facility]), Routine Given 05/26/2017 8:41 PM EST 5 mLs Given 05/26/2017 9:47 AM EST 5 mLs sodium chloride 0.9 % flush 5-20 mL 5-20 mL, Intravenous, EVERY 1 MIN PRN, S tarting on Sat05/24/17 at 2002, Until Sat05/27/17 at 1955, flush, Flush pertains t o all indwelling lines. Flush per protocol found in the job aid using the link prov ided on this medication record., Recovery ([facility]), Routine traMADol (ULTRAM) tablet 50 mg 50 mg, Oral, EVERY 6 HOURS PRN, Starting on Sat05/24/17 at 1801, Until Sat05/27/17 at 1956, Pain, Routine documented in this encounter Active and Recently Administered Medications Times are shown in EST. Scheduled Medication Order 05/25/2017 05/26/2017 05/27/2017 ciprofloxacin (CIPRO) tablet 500 mg 0608 (Given - Prov ider: Juanita Shi RN)1851 (Given - Provider: Nita Emerson RN) 0645 (Given - Provider: Juanita Shi RN)1820 (Given - Provider: Nita Emerson RN) 0615 (Given - Provider: Tracy Henley RN) 500 mg, Oral, 2 TIMES DAILY, First dose on Sat05/24/17 at 1900, Until Discontinued, Routine docusate sodium (COLACE) capsule 100 mg 0827 (Given - Provider: Suki Vidal RN)2032 (Not Given - Provider: Juanita Shi RN - Reason: Patient/family refused) 0900 (Not Given - Provider: Nita kong RN - Reason: Patient/family refused)2100 (Not Given - Provider: Tracy Henley RN - Reason: Patient/family refused) 0900 (Not Given - Provider: Mary Lou leblanc RN - Reason: Patient/family refused) 100 mg, Oral, 2 TIMES DAILY, First dose on Sat05/24/17 at 2100, Until Discontinued, Routine enoxaparin (LOVENOX) injection 40 mg 0828 (Given - Pro vider: Suki Vidal RN)2031 (Given - Provider: Juanita Shi RN) 0945 (Given - Provider: Nita Emerson RN)2040 (Given - Provider: Tracy Henley RN) 0828 (Given - Provider: Mary Lou Pineda RN) 40 mg, Subcutaneous, 2 TIMES DAILY, Firs t dose on Sat05/24/17 at 2100, Until Discontinued, Routine lidocaine (XYLOCAINE) 10 mg/mL (1 %) injection 10 mg (COMPLETED) 1700 (Given - Provider: Angle Mayer) 10 mg, Subcutaneous, ONCE, 1 dose, Sat at 1615, For use in Interventional Radiology (IR) only for procedure with direct provider supervision and verbal order., Angio/IR (Intra-Procedure), Routine metroNIDAZOLE (FLAGYL) tablet 500 mg 0827 (Given - Pro vider: Suki Vidal RN)143 (Given - Provider: Suki Vidal RN)2031 (Given - Provider: Juanita Shi RN) 0944 (Given - Provider: Nita Emerson RN)143 (Given - Provider: Nita Emerson RN)2040 (Given - Provider: Tracy Henley RN) 0828 (Given - Provider: Mary Lou Pineda, MEET)1529 (Given - Provider: Josh Maier RN) 500 mg, Oral, 3 TIMES DAILY, First dose on Sat05/24/17 at 2100, Until Discontinued, Routine sodium chloride 0.9 % flush 5 mL 0828 (Given - Provide r: Suki Vidal RN)2032 (Given - Provider: Juanita Shi RN) 0947 (Given - Provider: Nita Emerson, MEET)2040 (Given - Provider: Tracy Henley, MEET) 0829 (Given - Provider: Mary Lou Pineda RN) 5 mL, Intravenous, 2 TIMES DAILY, First dose on Sat05/24/17 at 2100, Until Discontinued, Recovery ([facility]ospital Unit), Routine Continuous Medication Order 05/25/2017 05/26/2017 05/27/2017 lactated Ringers infusion (CANCELED) 003 4 (New Bag - Provider: Juanita Shi RN)0646 (Stopped - Provider: Juanita Shi RN) 75 mL/hr, at 75 mL/hr, Intravenous, CONT INUOUS, Starting Sat05/24/17 at 2330, Until Sat05/26/17 at 0622, Recovery ([facility]ospital Unit) PRN Medication Order 05/25/2017 05/26/2017 05/27/2017 fentaNYL 50 mcg/mL multi-dose injection (CANCELED) 124 7 (Given - Provider: Nuzhat Javed RN)1303 (Given - Provider: Nuzhat Javed, MEET) 25-50 mcg, Intravenous, EVERY 5 MIN PRN, Starting 05/25/17 at 1226, Until 05/25/17 at 1310, Pain, per unit protocol, - Start dose 50 mcg (reduce dose to 25 mcg if history of sedation sensitivity). - Titration dose 25-50 mcg IV, (based o n patient response) every 3 minutes PRN, to maintain procedural pain less than 2 per pain Scale. Maximum dose: 50 mcg/dose, 250 mcg/hour For use in Interventional Radiology (IR) only for procedural derrick tion with direct provider supervision and verbal order., Angio/IR (Intra-Procedure), Routine ibuprofen (ADVIL;MOTRIN) tablet 600 mg 600 mg, Oral, EVERY 6 HOURS PRN, Startin g Sat05/24/17 at 1757, Until Sat05/27/17 at 1956, Pain, for MILD pain (1-3), Administer orally with milk or food to minimize GI irritation. Maximum dose of 3200 mg from all sources in 24 hours, Routine iohexol (OMNIPAQUE) 350 mg/mL solution 50 mL (COMPLETE D) 1326 (Given - Provider: Rafaela Knott) 50 mL, Other, ONCE PRN, 1 dose, Starting 05/25/17 at 1326, Until 05/25/17 at 1326, Per Protocol, Warning Vesicant/Irritant Medication , Routine iohexol (OMNIPAQUE) 350 mg/mL solution 50 mL 1700 (Given - Provider: Renato Lugo) 50 mL, Other, ONCE PRN, Starting 04/30 at 1711, Until Sat05/27/17 at 1956, Per Protocol, Warning Vesicant/Irritant Medication , Routine lidocaine (XYLOCAINE) 10 mg/mL (1 %) injection 3 mg 3 mg (0.3 mL), Subcutaneous, ONCE PRN, 1 dose, Starting Sat05/24/17 at 2003, Until Sat05/27/17 at 1956, for discomfort with PIV insertion, Recovery ([facility]ospital Unit), Routine lidocaine (XYLOCAINE) 2 % jelly (CANCELED) 1240 (Given - Provider: Nuzhat Javed RN) Topical (Top), EVERY 4 HOURS PRN, Pain, Starting 05/25/17 at 1226, For use in Interventional Radiology (IR) only for procedure with direct provider supervision and verbal order., Angio/IR (Intra-Procedure) lidocaine (XYLOCAINE) 2 % jelly (CANCELED) 1629 (Given - Provider: Maribel Ludwig RN) Topical (Top), EVERY 4 HOURS PRN, Pain, Starting 05/27/17 at 1554, For use in Interventional Radiology (IR) only for procedure with direct provider supervision and verbal order., Angio/IR (Intra-Procedure) ondansetron (ZOFRAN) injection 4 mg(Linked Group 1) 4 mg, Intravenous, EVERY 8 HOURS PRN, St artsat05/24/17 at 2002, Until Sat05/27/17 at 1955, Nausea, May repeat times one in 30 minutes if ineffective. If multiple antiemetics are ordered, use onda nstron first, Recovery ([facility] Unit) ondansetron (ZOFRAN) tablet 4 mg(Linked Group 1) 4 mg, Oral, EVERY 8 HOURS PRN, Starting Sat05/24/17 at 2002, Until Sat05/27/17 at 1955, Nausea, Vomiting, If multiple antiemetics are ordered, use ondansetron first. PO Preferred. If patient unable to take PO, may give IV if ordered. May repeat times one in 45 minutes if ineffective., Recovery ([facility] Unit), Routine sodium chloride 0.9 % flush 5-20 mL 5-20 mL, Intravenous, EVERY 1 MIN PRN, S tarting Sat05/24/17 at 2002, Until Sat05/27/17 at 1955, flush, Flush pertains to all indwelling lines. Flush per protocol found in the job aid using the link prov ided on this medication record., Recovery ([facility]ospital Uni t), Routine traMADol (ULTRAM) tablet 50 mg 50 mg, Oral, EVERY 6 HOURS PRN, Starting Sat05/24/17 at 1801, Until Sat05/27/17 at 1955, Pain, Routine Linked Groups Order Group 1: ondansetron (ZOFRAN) tablet 4 mgJump to med 4 mg, Oral, EVERY 8 HOURS PRN, Starting Sat05/24/17 at 2002, Until Sat05/27/17 at 1955, Nausea, Vomiting
If multiple antiemetics are ordered, use ondansetron first. PO Preferred. If patient unable to take PO, may give IV if ordered. May repeat times one in 45 minutes if ineffective.
Recovery ([facility]ospital Unit), Routine Or ondansetron (ZOFRAN) injection 4 mgJump to med 4 mg, Intravenous, EVERY 8 HOURS PRN, artsat05/24/17 at 2002, Until Sat05/27/17 at 1956, Nausea
May repeat times one in 30 minutes if ineffective. If multiple antiemetics are ordered, use ondanstron first
[facility] ([facility]) documented in this encounter Care Teams Wild Life Photographer Relationship Specialty Start Date End Date Odalys Laird MD PCP - General Internal Medicine 04/27/[address] [place] [address] documented as of this encounter
--- OUTSIDE RECORDS SUMMARY | 2022-01-19 01:23 | XMS_ITS | Encounter Summary ---
:1955 Author Organization [facility] [address] Care Team Providers Name Role Phone Odalys Laird MD Primary Care Provider Encounter Details Date Type Department Care Team Description 06/03/2017 Orders Only General Surgery at [facility] [place] [address] Social History Tobacco Use Types Packs/Day Years Used Date Former Smoker Cigarettes 4 22 04/28/1968 - 1 Smokeless Tobacco: Former User Chew Q uit: 04/28/2017 Comments: haven't used chew in a few wee oh Alcohol Use Standard Drinks/Week Comments Yes 0 [...] on filedocumented in this encounter Care Teams Smocking Machine Operator Relationship Specialty Start Date End Date Odalys Laird MD PCP - General Internal Medicine 04/27/[address] [place], [place] [id number] documented as of this encounter
--- OUTSIDE RECORDS SUMMARY | 2022-01-19 01:23 | XMS_ITS | Encounter Summary ---
:1955 Author Organization [facility] Address [address] [place] [address] Care Team Providers Name Role Phone Odalys Laird MD Primary Care Provider Reason for Visit Auth/Cert Specialty Diagnoses / Procedures Referred By Contact Refer red To Contact Diagnoses Loculated pleural effusion PLEURAL EFFUSION empyema Procedures @THORACOSCOPY, SURG; W PART. DECORTICATION (WRVU 18.78) Referral ID Status Reason Start Date Expiration Date Visits Requ ested Visits Authorized [id number] 1 1 Encounter Details Date Type Department Care Team Description 06/06/2017 Office Visit Infectious Disease at [facility], Psoas abscess; [facility] Price Miller MD E coli infection; [facility] Per sistent infection; Bhavesh Stewart Leukocytosis, unspecified type; [place], [place] [address] Elevated C-reactive protein (CRP) [id number] Social History Tobacco Use Types Packs/Day Years [...] documented as of this encounter Progress Notes Price Quezada MD - 06/06/2017 4:00 PM EST Infectious Diseases Follow-Up Note HPI: Mr. Urena is a 61y/o M who was admitted 04/27/16-05/04/17 for management of a large left retroperitoneal fluid collection inseparable from the left iliopsoas muscle. Of note, he had undergone a left testicle orchiopexy procedure two weeks prior to this admission for a concern about torsion. He asks today whether that could have been the cause of his infection, although it sounds like he had left-sided abdominal, flank, and groin pain pre-dating this procedure. In reviewing the original images with radiology, this abscess abutted the left kidney, but it did not seem to originate from the kidney. Mr. Urena's most significant symptoms included a 50 lbs weight loss and some diarrhea. In terms of other contiguous abdominal organs as potential sources, radiology saw no obvious masses in the colon, and in the absence of an alternative etiology, they raised thepossibility of an infection of a pre-existing hematoma. CT guided drainage on 04/27/18 identified a single pathogen (E. coli), and he was treated with cefepime/metronidazole transitioned to Bactrim. Blood cultures were negative on 04/28/18. On 05/10/17, Mr. Urena was readmitted after [...] of the LLQ abdominal wall abscess and interval reduction in the size of the left psoas abscess. In speaking with radiology, they suggested that the two collections might have been connected and drained by the second drain, but they also raised the possibility that Mr. Urena has not been adequately flushing his first drain at home. This is something that he denied. We recommended 4 weeks of treatment with ciprofloxacin plus metronidazole with ID follow-up prior tostopping antibiotics. Since I last saw Mr. Urena during his 05/10/17-05/16/17 admission, he was readmitted from 05/24/17-05/26/17 for decreasing drain output requiring drain exchange and up-sizing. A culture obtained on 05/25/17 grew rare coagulase negative Staphylococcus, but his ciprofloxacin plus metronidazole were not adj usted at that time. ID was not consulted. He was then readmitted again from 05/31/17-06/01/17 for laparoscopy and abscess drainage. While the Gramstain showed many WBCs, both the aerobic and anaerobic cultures have remained negative for ~1 week. He is scheduled for a repeat abdominal CT tomorrow on 06/07/17. Today, he comes to clinic with three drains still in place -- 1 in the front, 2 in the left flank. He reports that the surgical drain in the front has been draining a minimal amount of pus -- thimbleevery couple of days. The two back drains have put out 27cc combined in the past 24hrs -- he was unsure about their volume separately. He denies any fever or chills. His weight now appears to be stable. He denies any rash or worsening of his baseline diarrhea on the ciprofloxacin. He denies any peripheral neuropathy on the metronidazole, although he does endorse a metallic taste. He still has significant pain when lying on his left side at night -- feels like he was kicked in the ribs for 30 seconds after lying on his side. ROS: He reports significant GREEN, but he denies any CP or SOB at rest. He has a mild cough -- Catching cold going around. No CASTREJON, vision change, dysphagia, rhinorrhea, nausea, vomiting, abdominal pain,or dysuria. He also denies any left hip pain -- s/p injection (? steroid) around the time of his orchiopexy procedure. The remainder of his ROS was negative, except as noted in the HPI. I have reviewed the PMHx, Medications, Allergies, and SHx/FHx in the EMR. No new medications. Tylenol gives acid reflux. Not taking NSAIDs. No smoking. 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 Physical Exam: There were no vitals filed for this visit. (Mr. Urena arrived 15 minutes late for his 4p appointment, so the nurse was unable to obtain vitals prior to my going in to see the patient. He is back to see Dr. Gilson Mcgee on 06/07/17. I will review the vitals from this visit). Gen - Ambulatory, mild dyspnea after coming in from the parking garage, NAD. HEENT - PERRL, anicteric, MMM, clear OP. Neck - Supple. CV - Tachycardic, regular, no murmur. Resp - CTAB without rales or wheeze. Abd - Mild distention, obese, drainage (bloody) on dressing in LLQ, minimal serous output from frontdrain -- going to collection bag strapped to right leg. Back - Two IR-placed drains in left flank -- one with cloudy fluid (not frankly purulent), one with serous fluid. No CVA tenderness. No spine tenderness. - Left scrotum still has stitches in place from 03/2017 orchiopexy. No swelling, erythema, or TTPof scrotum/testicle. Ext - No LE edema, no rash. No left hip pain on palpation or ROM. Labs: WBC 11.4 (unchanged compared with 06/01/17) - 69.7% PMNs, Hct 33.7 (MCV 91.6), Plts 413 (up from 255 on 06/01/17) CRP 152.1 (non prior in eDH) Cr 1.19 (eGFR >60) on 06/01/17 Assessment: 61y/o M who has now been admitted four times (04/27/16-05/04/17, 05/10/17-05/16/17, 05/24/17-05/26/17, and 05/31/17-06/01/17) for management of a large left retroperitoneal fluid collection inseparable from the left iliopsoas muscle. He has undergone CT guided drain placement on 04/27/18 (which grewE. coli) and 05/10/17 (with negative cultures). He has also required a number of drain revision procedures, and he most recently went for laparoscopy and abscess drainage on 05/31/17 (purulent, but again culture negative -- aerobic and anearobic). Today, he seemed slightly improved on history and exam, but his labs continue to show a leukocytosis (WBC 11.4) and an elevated CRP (152.1). Plan: 1. I instructed Mr. Urena to continue his ciprofloxacin plus metronidazole until I can review hisrepeat abdominal CT on 06/07/17 and discuss the findings with Dr. Gilson Mcgee. 2. If the CT shows persistent infection, then we will need to discuss problems with source control versus problems with bug-drug mismatch. It may be worth performing a drain study to look for fistula to the bowel or other potential source of ongoing seeding. 3. I have held on scheduling Mr. Urena's ID follow-up until after we have a plan driven by the 06/07/17 CT findings. Price Quezada MD documented in this encounter Plan of Treatment Not on filedocumented as of this encounter Procedures Procedure Name Priority Date/Time Associated Comments Diagnosis CRP, ACUTE Routine 06/06/2017 5:08 PM Psoas abscess Results for this INFLAMMATION EST procedure are i n the results section. HEMOGRAM Routine 06/06/2017 5:08 PM Psoas abscess Results for this EST procedure are i n the results section. DIFFERENTIAL, Routine 06/06/2017 5:08 PM Psoas abscess Results for this AUTOMATED EST procedure are i n the results section. CBC (WITH DIFF) Routine 06/06/2017 5:08 PM Psoas abscess EST documented in this encounter Results (ABNORMAL) Differential, Automated (06/06/2017 5:08 PM EST) [facility] Method Time Signature Neutrophils % 69.7 % [facility] Neutr Abs (ANC) 7.94 (H) 1.70 - [facility] 6.10 [facility] x10(3)/[facility] LABORATORY Lymphocytes % 18.7 % [facility] Lymphocytes Abs 2.1 0.9 - 3.2 [facility] x10(3)/[facility] LABORATORY Monocytes % 9.6 % [facility] Monocyte Abs 1.1 (H) 0.3 - 0.9 [facility] x10(3)/[facility] LABORATORY Eosinophils % 1.1 % [facility] Eosinophils Abs 0.1 0.0 - 0.4 [facility] x10(3)/[facility] LABORATORY Basophils % 0.5 % [facility] Basophils Abs 0.1 0.0 - 0.1 [facility] x10(3)/[facility] LABORATORY Immature Gran % 0.40 % [facility] Comment: Immature granulocytes(IG's)percentage an d absolute count will include metamyelocytes, myelocytes, and promyelo cytes. Blood smears from CBCs yielding IG's will be scanned manually for concor dance. If this scan disagrees with the automated IG or if promyelocytes are not ed, a manual differential will be performed. Mehnaz Gran Abs 0.05 (H) 0.00 - 0.04 x10(3)/[facility] LABORATORY Specimen Anatomical Collection Method Collection Time Receive d Time (Source) Location / / Volume Laterality Blood specimen 06/06/2017 5:08 PM 018 5:14 (specimen) EST PM EST Resulting Agency Comment Spec In Lab Price Quezada MD HEMATOLOGY ORDERABLES Performing Organization Address City/State/[place] [address] (ABNORMAL) Hemogram (06/06/2017 5:08 PM EST) Analysis Performed At Patho logist Time Signature WBC 11.4 (H) 4.0 - 9.5 [facility] x10(3)/[facility] LABORATORY RBC 3.68 (L) 4.58 - [facility] 5.54 [facility] x10(6)/[facility] LABORATORY Hemoglobin 10.8 (L) 13.7 - [facility] 16.5 gm/dL [facility] Hematocrit 33.7 (L) 40.5 - [facility] 48.5 % [facility] MCV 91.6 82.9 - [facility] 93.1 fL [facility] MCH 29.3 27.5 - [facility] 32.1 pg [facility] MCHC 32.0 32.0 - [place] 35.7 gm/dL [facility] Platelets 413 (H) 145 - 357 [facility] x10(3)/[facility] LABORATORY RDWSD 59.3 (H) 36.0 - [facility] RAJENDRA 45.0 [facility] LABORATORY RDWCV 17.6 (H) 11.4 - [facility] 13.8 % [facility] MPV 8.8 7.6 - 12.9 [facility] LABORATORY nRBC % Auto 0.0 % [facility] nRBC Abs Auto 0.000 0.000 - [facility] 0.000 [facility] x10(3)/[facility] LABORATORY Specimen Anatomical Collection Method Collection Time Receive d Time (Source) Location / / Volume Laterality Blood specimen 06/06/2017 5:08 PM 018 5:14 (specimen) EST PM EST Resulting Agency Comment Spec In Lab Price Quezada MD HEMATOLOGY ORDERABLES Performing Organization Address City/State/[place] [address] (ABNORMAL) CRP, acute inflammation (06/06/2017 5:08 PM EST) P athologist Signature CRP 152.1 (H) <=4.9 mg/L [facility] Specimen Anatomical Collection Method Collection Time Receive d Time (Source) Location / / Volume Laterality Blood specimen 06/06/2017 5:08 PM 018 5:14 (specimen) EST PM EST Resulting Agency Comment Spec In Lab Price Quezada MD CHEMISTRY ORDERABLES Performing Organization Address City/State/[place] [address] documented in this encounter Visit Diagnoses Diagnosis Psoas abscess Psoas muscle abscess E coli infection Other and unspecified Escherichia coli ( E. coli) Persistent infection Leukocytosis, unspecified type Elevated C-reactive protein (CRP) documented in this encounter Care Teams Revenue Stamper Relationship Specialty Start Date End Date Odalys Laird MD PCP - General Internal Medicine 04/27/[address] [place] [address] [address] [place] [address] documented as of this encounter
--- OUTSIDE RECORDS SUMMARY | 2022-01-19 01:24 | XMS_ITS | Encounter Summary ---
:1955 [place] [address] Care Team Providers Name Role Phone Odalys Laird MD Primary Care Provider Reason for Visit Auth/Cert Specialty Diagnoses / Procedures Referred By Contact Refer red To Contact Diagnoses Intra-abdominal abscess NEW RETROPERITONEAL ABCESS AND ABDOMINAL ABCESS Procedures DEVAN IPI Referral ID Status Reason Start Date Expiration Date Visits Requ ested Visits Authorized [id number] 1 1 Encounter Details Date Type Department Care Team Description 05/10/2017 [facility] [address] GENERAL SURGERY [place] [phone] [phone] [phone] Social History Tobacco Use Types Packs/Day Years Used Date Former Smoker Cigarettes 4 22 04/28/1968 - 1 Smokeless Tobacco: Former User Chew Q uit: 03/24/2017 Comments: 1 can/ day tobacco chew Alcohol Use Standard Drinks/Week Comments Yes 0 [...] Sign Reading Time Taken Comments Blood Pressure 100/63 05/10/2017 11:29 AM EST Pulse 96 05/10/2017 11:29 AM EST Temperature 36.9 ??C (98.5 ??F) 05/10/2017 11:29 AM EST Respiratory Rate 16 05/10/2017 11:29 AM EST Oxygen Saturation 97% 05/10/2017 11:29 AM EST Inhaled Oxygen Concentration - - Weight - - Height - - Body Mass Index - - documented in this encounter Progress Notes Nunu Avina - 05/10/2017 11:45 AM EST See inpatient H&P. NUNU AVINA MD documented in this encounter Plan of Treatment Not on filedocumented as of this encounter Procedures Procedure Name Priority Date/Time Associated Diagnosis Comme nts HEMOGRAM STAT 05/10/2017 1:16 Retroperitoneal abscess R esults for this PM EST procedure are i n the results section. DIFFERENTIAL, STAT 05/10/2017 1:16 Retroperitoneal abscess Results for this AUTOMATED PM EST procedure are i n the results section. APTT STAT 05/10/2017 1:16 Retroperitoneal abscess R esults for this PM EST procedure are i n the results section. PROTHROMBIN TIME STAT 05/10/2017 1:16 Retroperitoneal absce ss Results for this PM EST procedure are i n the results section. CBC (WITH DIFF) STAT 05/10/2017 1:16 Retroperitoneal absces s PM EST BASIC METABOLIC STAT 05/10/2017 1:16 Retroperitoneal absces s Results for this PANEL (NON-FASTING) PM EST procedur e are in the results section. documented in this encounter Results (ABNORMAL) Differential, Automated (05/10/2017 1:16 PM EST) [facility] Method Time Signature Neutrophils % 66.4 % [facility] Neutr Abs (ANC) 8.68 (H) 1.70 - [facility] 6.10 [facility] x10(3)/[facility] LABORATORY Lymphocytes % 24.9 % [facility] Lymphocytes Abs 3.2 0.9 - 3.2 [facility] x10(3)/[facility] [place] [facility] LABORATORY Monocytes % 5.5 % [facility] Monocyte Abs 0.7 0.3 - 0.9 [facility] x10(3)/[facility] [place] [facility] LABORATORY Eosinophils % 1.7 % [facility] Eosinophils Abs 0.2 0.0 - 0.4 [facility] x10(3)/[facility] [place] [facility] LABORATORY Basophils % 0.5 % [facility] Basophils Abs 0.1 0.0 - 0.1 [facility] x10(3)/[facility] [place] [facility] LABORATORY Immature Gran % 1.00 % [facility] Comment: Immature granulocytes(IG's)percentage an d absolute count will include metamyelocytes, myelocytes, and promyelo cytes. Blood smears from CBCs yielding IG's will be scanned manually for concor dance. If this scan disagrees with the automated IG or if promyelocytes are not ed, a manual differential will be performed. Mehnaz Gran Abs 0.13 (H) 0.00 - 0.04 x10(3)/[facility] LABORATORY Specimen Anatomical Collection Method Collection Time Receive d Time (Source) Location / / Volume Laterality Blood specimen 05/10/2017 1:16 PM 018 1:26 (specimen) EST PM EST Resulting Agency Comment Spec In Lab Gilson Mcgee MD HEMATOLOGY ORDERABLES Performing Organization Address City/State/[place] [address] (ABNORMAL) Hemogram (05/10/2017 1:16 PM EST) Analysis Performed At Patho logist Time Signature WBC 13.1 (H) 4.0 - 9.5 [facility] x10(3)/[facility] LABORATORY RBC 3.67 (L) 4.58 - [facility] 5.54 [facility] x10(6)/[facility] LABORATORY Hemoglobin 10.5 (L) 13.7 - [facility] 16.5 gm/dL [facility] Hematocrit 33.0 (L) 40.5 - [facility] 48.5 % [facility] MCV 89.9 82.9 - [facility] 93.1 fL [facility] MCH 28.6 27.5 - [facility] 32.[facility] MCHC 31.8 (L) 32.0 - [place] 35.7 gm/dL [facility] Platelets 336 145 - 357 [facility] x10(3)/[facility] LABORATORY RDWSD 51.8 (H) 36.0 - [place] 45.0 [facility] LABORATORY RDWCV 16.2 (H) 11.4 - [facility] RAJENDRA 13.8 % [facility] LABORATORY MPV 8.7 7.6 - 12.9 [facility] LABORATORY nRBC % Auto 0.0 % [facility] nRBC Abs Auto 0.000 0.000 - [facility] RAJENDRA 0.000 [facility] x10(3)/[facility] LABORATORY Specimen Anatomical Collection Method Collection Time Receive d Time (Source) Location / / Volume Laterality Blood specimen 05/10/2017 1:16 PM 018 1:26 (specimen) EST PM EST Resulting Agency Comment Spec In Lab Gilson Mcgee MD HEMATOLOGY ORDERABLES Performing Organization Address City/[facility] [place] [address] Prothrombin Time (05/10/2017 1:16 PM EST) P athologist Signature PT 13.9 11.8 - 14.0 [facility] LABORATORY INR 1.1 0.9 - 1.1 [facility] Comment: An INR <2.0 indicates [...] Location / / Volume Laterality Blood specimen 05/10/2017 1:16 PM 018 1:26 (specimen) EST PM EST Resulting Agency Comment Spec In Lab Gilson Mcgee MD HEMATOLOGY ORDERABLES Performing Organization Address City/[facility]/[place] [address] APTT (05/10/2017 1:16 PM EST) athologist Signature PTT 32 25 - [address] [facility] Comment: The recommended therapeutic range for fu ll dose, unfractionated heparin at [facility] is 80 ? 114 seconds. The use of the anti-Xa (heparin) level rather than the PTT is recommended for monitoring anticoagul ation intensity in critically ill patients receiving unfractionated hepari n by continuous IV infusion. Specimen Anatomical Collection Method Collection Time Receive d Time (Source) Location / / Volume Laterality Blood specimen 05/10/2017 1:16 PM 018 1:26 (specimen) EST PM EST Resulting Agency Comment Spec In Lab Gilson Mcgee MD HEMATOLOGY ORDERABLES Performing Organization Address City/State/[place] [address] (ABNORMAL) Basic Metabolic Panel (non-fasting) (05/10/2017 1:16 PM EST) athologist Signature Glucose Lvl 93 65 - 199 [facility] mg/dL [facility] Comment: Diabetes: >=200 mg/dL plus symp toms BUN 24 (H) 10 - 20 mg/dL [facility] Creatinine 1.65 (H) 0.80 - 1.50 mg/dL [facility] Sodium 129 (L) 135 - 145 mmol/L [facility] Potassium 5.9 (H) 3.5 - 5.0 mmol/L [facility] Comment: Please note: ??Patients with WBC >100,00 0 may have falsely elevated Potassium levels. ??For accurate Potassium quantif ication in these patients send serum separator tube (gold top) for subsequent determinations. ??Contact the Clinical Chemistry Laboratory if there are any qu estions. Chloride 95 (L) 98 - 107 mmol/L [facility] CO2 20 (L) 22 - 31 mmol/L [facility] Anion Gap 14 5 - 15 mmol/L [facility] Calcium 9.9 8.5 - 10.5 mg/dL [facility] Estimated GFR 43 (L) >=60 [facility] Comment: The reported eGFR should be multiplied b y 1.2 for patients. The MDRD is not an appropriate measure o f renal function for patients with body mass extremes or in patients with acute kidney failure. http://Simraceway/DHnkdep http://Simraceway/DHMCnkf Specimen Anatomical Collection Method Collection Time Receive d Time (Source) Location / / Volume Laterality Blood specimen 05/10/2017 1:16 PM 018 1:26 (specimen) EST PM EST Resulting Agency Comment Spec In Lab Gilson Mcgee MD CHEMISTRY ORDERABLES Performing Organization Address City/State/[place] [address] documented in this encounter Visit Diagnoses Diagnosis Retroperitoneal abscess Other retroperitoneal abscess documented in this encounter Care Teams Bottom Man Relationship Specialty Start Date End Date Odalys Laird MD PCP - General Internal Medicine 04/27/[address] [place] [address] documented as of this encounter
--- OUTSIDE RECORDS SUMMARY | 2022-01-19 01:24 | XMS_ITS | Encounter Summary ---
:1955 Author Organization [facility] [place] [address] Care Team Providers Name Role Phone Odalys Laird MD Primary Care Provider Reason for Referral Diagnostic Test (Routine) - Closed Specialty Diagnoses / Procedures Referred By Contact Refer red To Contact Radiology Diagnoses Hyperkalemia Nunu Avina MD [facility] Rad Ct Scan Procedures CT Abdomen & Pelvis w Contrast [facility] [place] [address] [place] [address] Referral ID Status Reason Start Date Expiration Date Visits V isits Requested Authorized [id number] Closed Specialty 05/20/2017 08/18/2017 1 1 Service Requested Reason for Visit Auth/Cert Specialty Diagnoses / Procedures Referred By Contact Refer red To Contact Diagnoses Intra-abdominal abscess NEW RETROPERITONEAL ABCESS AND ABDOMINAL ABCESS Procedures DEVAN IPI Referral ID Status Reason Start Date Expiration Date Visits Requ ested Visits Authorized [id number] 1 1 Encounter Details Date Type Department Care Team Description 05/10/2017 - Hospital Encounter 3 Gilson Chou, Hyperkalemia 05/16/2017 [facility] [address] Sandhu [place] GENERAL SURGERY [address] [place] [address] [phone] Social History Tobacco Use Types Packs/Day Years [...] Sign Reading Time Taken Comments Blood Pressure 132/89 05/16/2017 7:53 AM EST Pulse 99 05/14/2017 8:11 PM EST Temperature 36.5 ??C (97.7 ??F) 05/16/2017 7:53 AM EST Respiratory Rate 16 05/16/2017 7:53 AM EST Oxygen Saturation 97% 05/16/2017 7:53 AM EST Inhaled Oxygen Concentration - - Weight 153.3 kg (338 lb) 05/11/2017 6:00 AM EST Height 175.3 cm (5' 9) 05/11/2017 6:00 AM EST Body Mass Index 49.91 05/11/2017 6:00 AM EST documented in this encounter Discharge Summaries Nunu Avina Huseyin - 05/16/2017 9:59 AM EST Images from the original note were not included. GENERAL SURGERY DISCHARGE SUMMARY Inpatient - Discharge Summary Patient Name: Adamaris Urena Patient Age: 61 y.o. : 1955 Attending Physician: Gilson Mcgee MD Date of Admission: 05/10/2017 Date of Discharge: 05/16/2017 Diagnosis: Active Hospital Problems Diagnosis ??? Intra-abdominal abscess Resolved Hospital Problems Diagnosis Date Resolved No resolved problems to display. Operations and Procedures: * No surgery found * Surgeons: * Surgery not found * History of Present Illness: Adamaris Urena is a 61 y.o.male with a pertinent PMH of recent admission to [facility] for retroperitoneal abscess unknown origin s/p IR drain on 04/27 who presents for interval CT scan and follow-up. ?? Mr. Urena states that symptomatically he has no major issues - he denies any abdominal pain or fullness, he is having normal BMs (non-bloody), tolerating PO intake without any issues, denies any fevers or chills. With further prompting he does endorse some discomfort in the LEFT groin region, but that this is similar to what prompted his prior orchiectomy and injection. Regarding his drain, his personal home record was reviewed. He has been putting out approximately 20-30 cc per day of purulent fluid. He has had multiple issues with the stop-cock on the drain cracking (at least 3 occasions). Hismost recent stop-cock was placed yesterday and seems to be working well. He and his daughter have been flushing the drain with 10-20 cc of fluid to help maintain patency. ?? CT scan review, findings reported below. Hospital Course: Adamaris Urena is a 61 y.o. male who was admitted on 05/10/2017 for the above listed issues. On admission an IR drain was placed into the new intra-abdominal fluid collection. Symptomatically his abdominal pressure improved. His drain initially put out several hundred cc of fluid, andhas slowly decreased to 140 cc over the past 24 hrs prior to discharge. Cultures from this drain have been negative, however, he has been maintained on antibiotics and previous drain cultures grew out simmons-sensitive E. Coli. During his hospitalization an MRI was obtained to r/o discitis and osteomyelitis either as a cause for the infection or secondary to abscess spread. A swallow study was performed to r/o a gastric cause for his abscess. Both of these studies were negative. A repeat CT scan on 05/15showed improvement in both his abdominal and retroperitoneal fluid collections (indicating some connection between the two. ID was consulted for antibiotic management and recommended discharge on Ciprof loxacin 500 BID and Flagyl 500 TID for at least 4 weeks. IR was curb-sided for aid with management of the retroperitoneal drain - a recommendation to maintain both drains with close follow-up of a repeat CT scan and drain study was made. On discharge Mr. Urean was afebrile , hemodynamically stable with a normal WBC count and improving electrolytes. He was tolerating a regular diet. Pain well controlled on PO pain medications. He has had normal BMs. He is ambulating at baseline. He was deemed stable for discharge with follow-up and repeat imaging in 1 week on LOS: 6 days . Vital Signs Last value Range last 24hrs Temperature Temp: 36.5 ?C (97.7 ?F) Temp: [36.5 ?C (97.7 ?F)-37.1 ?C (98.8 ?F)] Heart Rate Heart Rate: 99 Heart Rate: -- Blood Pressure BP: 132/89 BP: (122-133)/(76-91) Respiratory Rate Resp: 16 Resp: [16-17] SpO2 SpO2: 97 % SpO2: [94 %-97 %] Pertinent Lab Data: Recent Labs 05/16/17 0351 05/15/17 0330 WBC 6.5 6.6 HGB 10.2* 10.5* HCT 32.4* 32.6* PLATELET 241 239 Recent Labs 05/16/17 0351 05/15/17 0330 05/14/17 0206 NA 134* 133* 131* K 4.2 4.4 4.6 CL 97* 97* 95* CO2 22 22 22 BUN 14 17 19 CREATININE 1.13 1.01 1.24 GLUCOSE 102 100 107 CALCIUM 9.2 9.3 9.2 Physical Exam: General: NAD, AOx3 HEENT: anicteric sclera, PEERL CV: RRR Pulmonary: CTAB GI: obese, soft, non-tender, non-peritoneal - no rebound or guarding, LATOYA drains holding suction and draining purulent fluid, no overlying skin erythema or induration Neuro: 5/5 strength bilat U and LE, sensation intact globally MSK: wwp, no edema Derm: no obvious skin lesions Imaging: Mri Lumbar Spine Wwo Contrast Result [...] in context of the clinical situation (Reference- Jagrutivik et al, Spine 2001). Findings: (Prevalence in [...] pigtail drain into the left retrocrural peritoneal a bscess. The pigtail is located in the subdiaphragmatic [...] muscle. In the absence of a clear intra- abdominal or osseous source of infection, consider infection of a pre-existing hematoma. 2. Lateral right 10th rib fractures either acute or subacute; correlation with history needed. 3. Area of cortical thinning of the anterior aspect of left 11th rib without definitive fracture. Thisfinding is indeterminate. If there is a history [...] is a history of malignancy, consider metastasis. chriss personally reviewed the image(s) and the residents [...] pelvis was performed without intravenous contrast at [facility] on 04/27/2017 at 1325 hours. COMPARISON: [...] ventrally. Question infection of a retroperitoneal hematoma. Film Library- Storage Only Ct Abdomen & Pelvis Result Date: 04/27/2017 This exam is for storage only and is auto-finalizing. Ir All Drainage Procedures Result Date: 05/02/2017 [...] atelectasis. 5. Moderate splenomegaly. Discussed with Dr. Avina by Dr. rUbano via telephone on May 10, 2017 at 1130am. Preliminary report signed by: Jorge Urbano at 05/10/2017 11:53 AM I have personally reviewed the image(s) and the residents interpretation and agree with the findings, Chandrika James at 05/10/2017 12:19 PM Xr Fluoro Upper Gi Single Contrast Wo [...] Medications: Your Medications New Medications Dose Details ciprofloxacin 500 mg Tab Commonly known as: CIPRO Take 1 tablet by mouth 2 times daily for 28 days. 500 mg Quantity: 56 tablet Refills: 0 metroNIDAZOLE 500 mg Tab Commonly known as: FLAGYL Take 1 tablet by mouth 3 times daily for 28 days. 500 mg Quantity: 84 tablet Refills: 0 traMADol 50 mg Tab Commonly known as: ULTRAM Take 1 tablet by mouth every 6 hours as needed for Pain for up to 7 days. 50 mg Quantity: 15 tablet Refills: 0 STOPPED Medications lisinopril 40 mg Tab Commonly known as: PRINIVIL;ZESTRIL sulfamethoxazole-trimethoprim 800-160 mg Tab Commonly known as: BACTRIM DS Disposition: Home with VNA Allergies: Allergies Allergen Reactions ??? Tylenol [Acetaminophen] Causes acid reflux Outpatient Services/Studies: CT Abdomen & Pelvis w Contrast Standing Status: Future Standing Exp. Date: 11/23/17 Question Response Notes Where will study be performed? [facility] [120] Reason for exam and clinical history: P/w abdominal pressure and retroperitoneal and recently pericolic abscesses, s/p IR drainage Reason for exam and clinical history: Eval progression of abscess pockets, please call and coordinate with IR as they indicated desire for drain study Referral to Home Health - at DISCHARGE Order Comments: DOCUMENTATION FOR VNA SERVICES (INCLUDING THOSE PATIENTS WITH MEDICARE COVERAGE REQUIRING HOME VNA SERVICES AND/OR HOSPICE SERVICES) PATIENT'S LOCATION: Adamaris Benitez Romel [address] [place] [address] (home) Cell: Telephone Information: Licensed Professional Counselor's Name: patient and daughter In discussion with the attending physician, it is certified that this patient is under their care and that they, or a Nurse Practitioner,Clinical Nurse specialist or Physician Clinical Assoc who is working directly with them, had a face to face encounter that meets the physician face to face encounter requirements with this patient on 05/16/2017 The encounter with the patient was in whole, or in part, for the following medical condition, which is the primary reason for home health care services: retroperitoneal absess with drains in place In discussion with the provider, it is certified that, based on their findings, the following services are medically necessary for home health services. To provide the following care/treatments with the clinical findings supporting the need for servicesas follows: HOME CARE ORDERS: RN ORDERS:Assess incision, vital signs, cardiopulmonary status, nutrition, hydration, elimination, meds effectiveness and management; reinforce education re health issues; Ongoing education and supportwith drain care. Drain care: See discharge instructions -Make sure drain bulb is to suction -Record output -Flush with 5 cc sterile saline -Return bulb to suction -Keep dressing and surrounding area clean HOME HEALTH CARE AGENCY: [facility] PHONE: [phone] FAX: [phone] Start of care: 24 to 48 hours post discharge FOR MEDICARE ONLY: (please delete this section if not Medicare) In discussion with the attending physician, it is certified that the clinical findings support that this patient is homebound because absences from home require considerable and taxing effort due to: surgical drains in place and requiting assist of another person to leave home Please note that any additional orders needs or changes will need to be obtained from this patient'sPCP: Odalys Laird MD [address] / [facility] [place] [address] All A agencies which cover the area of patient's residence have been reviewed, either verbally or in writing, and patient/family have chosen the home health care agency noted Question Response Notes Agency name and contact information [facility] Patient location post discharge home What services are requested Registered Nurse Responsible post discharge contact info PCP and surgeon Scheduled Appointments: Future Appointments and Orders Future Appointments Provider Department Dept Phone 05/31/2017 10:15 AM [facility] IR ROOM 3 Radiology at [facility] [phone] Please expect a call from a radiology nurse within 3 days of your exam, you will need to follow theinstructions given at that time. Future Orders Complete By Expires CT Abdomen & Pelvis w Contrast [[id number] Custom] 05/24/2017 (Approximate) 11/23/2017 Process Instructions: If patient has symptoms of hematuria consider ordering [id number] CT Urogram. Scheduling Instructions: Questions: Where will study be performed?: [facility] Reason for exam and clinical history: P/w abdominal pressure and retroperitoneal and recently pericolic abscesses, s/p IR drainage Eval progression of abscess pockets, please call and coordinate with IR as they indicated desire for drain study Other pertinent information: Stat read required?: Does patient require sedation?: GA rationale: Date of injury if applicable: Requested Time: Referral to Home Health - at DISCHARGE [EXH6070 CPT(R)] As directed Process Instructions: Scheduling Instructions: Comments: DOCUMENTATION FOR VNA SERVICES (INCLUDING THOSE PATIENTS WITH MEDICARE COVERAGE REQUIRING HOME VNA SERVICES AND/OR HOSPICE SERVICES) PATIENT'S LOCATION: Adamaris Benitez Urena [address] [place] [address] (home) Cell: Telephone Information: Licensed Professional Counselor's Name: patient and daughter In discussion with the attending physician, it is certified that this patient is under their care and that they, or a Nurse Practitioner,Clinical Nurse specialist or Physician Clinical Assoc who is working directly with them, had a face to face encounter that meets the physician face to face encounter requirements with this patient on 05/16/2017 The encounter with the patient was in whole, or in part, for the following medical condition, which is the primary reason for home health care services: retroperitoneal absess with drains in place In discussion with the provider, it is certified that, based on their findings, the following services are medically necessary for home health services. To provide the following care/treatments with the clinical findings supporting the need for servicesas follows: HOME CARE ORDERS: RN ORDERS:Assess incision, vital signs, cardiopulmonary status, nutrition, hydration, elimination, meds effectiveness and management; reinforce education re health issues; Ongoing education and supportwith drain care. Drain care: See discharge instructions -Make sure drain bulb is to suction -Record output -Flush with 5 cc sterile saline -Return bulb to suction -Keep dressing and surrounding area clean HOME HEALTH CARE AGENCY: [facility] PHONE: [phone] FAX: [phone] Start of care: 24 to 48 hours post discharge FOR MEDICARE ONLY: (please delete this section if not Medicare) In discussion with the attending physician, it is certified that the clinical findings support that this patient is homebound because absences from home require considerable and taxing effort due to: surgical drains in place and requiting assist of another person to leave home Please note that any additional orders needs or changes will need to be obtained from this patient'sPCP: Odalys Laird MD [address] / [facility] [place] [address] All A agencies which cover the area of patient's residence have been reviewed, either verbally or in writing, and patient/family have chosen the home health care agency noted Questions: Agency name and contact information: [facility] Patient location post discharge: home What services are requested: Registered Nurse Start date: Responsible MD post discharge contact info: PCP and surgeon Instructions Given to Patient at Discharge: Patient Instructions Discharge Instructions CALL YOUR PHYSICIAN IF: ??? You have a fever greater than 101 degrees Farenheit within one month of your surgery. ? ? You have diarrhea or vomiting for >24 hours, or stop having bowel movements and passing flatus ??? You have worsening pain, not controlled with your pain medication. ??? You develop redness, swelling, or new drainage from your wound. Prescriptions: ?? You have been prescribed Tramadol to control your pain after surgery. This should only be used tocontrol breakthrough pain. ?? You have been prescribed two antibiotics to help control your infection (Flagyl/Metronidazole andCiprofloxacin). Please take these as prescribed. ?? Your blood pressures have been well controlled in the hospital off your Lisinopril. Please hold this medication. Driving Restrictions: ?? No driving if you are too sore from surgery to enter or exit your vehicle comfortably, or if you are too sore to easily check your blind spot. Activities: ?? There are no major restrictions on your activities ?? Use common sense and do not perform activities that would dislodge your IR drains Diet: ?? Resume your normal diet Wound Care: ?? You can shower per [...] questions, issues, or problems with your drains Follow-up Appointments: You will have a follow-up appointment with Dr. Mcgee in approximately 1 week. This appointment has been scheduled on your behalf (see below for further details). You will have a CT scan to evaluate howyour abscess pockets are doing. You will recieve a letter in the mail and/or a phone call with information about this appointment. Please call to confirm date and time of your appointment, or if you donot receive information about your appointment in a timely manner. Please call if you have any questions or issues regarding your care. Below is a list of contact phone numbers: General Surgery: [facility]: Below is a list of your appointments which have already been scheduled: Future Appointments Date Time Provider Department Center 05/31/2017 10:15 AM [facility] IR ROOM 3 [facility] General Instructions INTERVENTIONAL RADIOLOGY DRAIN CARE INSTRUCTIONS [...] dressing if applicable. * See the following pages [...] plugging the drain. Flush the drain with 5 cc daily with the syringes supplied to you. FORWARD FLUSH ONLY, DO NOT ASPIRATE BACK. When to call the Interventional Radiology Department: Please call with any questions or concerns. Ifit is during regular office hours, please call [phone]. If it is after regular office hours, oron weekends or holidays, please call [phone] and ask to speak to the Clinical Training Coordinator on callfor Interventional Radiology. XX You have received medication during your procedure to help lesson anxiety and keep you comfortable. These medications [...] (per drain; in 24 hours) Signed: NUNU AVINA MD 05/16/2017 Primary [place] Physician: Odalys Laird MD [facility] / [facility] [place] [address] documented in this encounter Discharge Instructions Discharge InstructionsOdalys Moss RN - 05/10/2017 4:52 PM EST Images from the original note [...] dressing if applicable. * See the following pages [...] plugging the drain. Flush the drain with 5 cc daily with the syringes supplied to you. FORWARD FLUSH ONLY, DO NOT ASPIRATE BACK. When to call the Interventional Radiology Department: Please call with any questions or concerns. Ifit is during regular office hours, please call [phone]. If it is after regular office hours, oron weekends or holidays, please call [phone] and ask to speak to the Clinical Training Coordinator on callfor Interventional Radiology. XX You have received medication during your procedure to help lesson anxiety and keep you comfortable. These medications [...] in 24 hours) Patient Nunu Baeza - 05/16/2017 7:53 AM EST Discharge Instructions CALL YOUR PHYSICIAN IF: ??? You have a fever greater than 101 degrees Farenheit within one month of your surgery. ? ? You have diarrhea or vomiting for >24 hours, or stop having bowel movements and passing flatus ??? You have worsening pain, not controlled with your pain medication. ??? You develop redness, swelling, or new drainage from your wound. Prescriptions: ?? You have been prescribed Tramadol to control your pain after surgery. This should only be used tocontrol breakthrough pain. ?? You have been prescribed two antibiotics to help control your infection (Flagyl/Metronidazole andCiprofloxacin). Please take these as prescribed. ?? Your blood pressures have been well controlled in the hospital off your Lisinopril. Please hold this medication. Driving Restrictions: ?? No driving if you are too sore from surgery to enter or exit your vehicle comfortably, or if you are too sore to easily check your blind spot. Activities: ?? There are no major restrictions on your activities ?? Use common sense and do not perform activities that would dislodge your IR drains Diet: ?? Resume your normal diet Wound Care: ?? You can shower per [...] questions, issues, or problems with your drains Follow-up Appointments: You will have a follow-up appointment with Dr. Mcgee in approximately 1 week. This appointment has been scheduled on your behalf (see below for further details). You will have a CT scan to evaluate howyour abscess pockets are doing. You will recieve a letter in the mail and/or a phone call with information about this appointment. Please call to confirm date and time of your appointment, or if you donot receive information about your appointment in a timely manner. Please call if you have any questions or issues regarding your care. Below is a list of contact phone numbers: General Surgery: [facility]: Below is a list of your appointments which have already been scheduled: Future Appointments Date Time Provider Department Center 05/31/2017 10:15 AM [facility] IR ROOM 3 [facility] documented in this encounter Medications at Time [...] 7 days. documented as of this encounter Progress Notes Savanna Jj RN - 05/16/2017 10:35 AM EST Patient discharged to home with VNA services. IV removed, site benign. My assessment remains unchanged from my previous assessment. Patient denies chest pain and shortness of breath. Discussed pain management with patient, pain tolerable. Patient medicated prior to discharge. Patient has all belongings. Patient received discharge summary and prescriptions. These were reviewed. All questions answered.Patient encouraged to call with questions or concerns. Patient discharged to home. Discharge Summarywas faxed, RN called report to VNA. Naomi Carrillo RN - 05/16/2017 9:07 AM EST Chart reviewed, care reviewed with primary team. Mr Urena is medically ready for discharge to home today with VNA. Met with patient who had initially declined VNA-is in agreement to continue [facility]. Referral pended for RN. Calli Garcia [facility] - 05/15/2017 12:01 PM EST Clinical Pharmacist Note - Renal Dose Adjustment for Antimicrobials Adamaris Urena (A# [id number]) is being treated with the following antimicrobial agent(s) which require dose adjustment based on current renal function: 1. Cefepime 1g IV q12h (medication/dose/route/frequency) The indication for antimicrobial treatment is: GI/Intra-abdominal infection Pharmacokinetic information: Height: Ht Readings from Last 1 Encounters: 05/11/17 175.3 cm (5' 9) Weight: Wt Readings from Last 1 Encounters: 05/11/17 (!) 153.3 kg (338 lb) Body mass index is 49.91 kg/(m^2). Estimated Creatinine Clearance: 112.7 mL/min (based on Cr of 1.01). Recent Labs 05/15/17 0330 05/14/17 0206 05/13/17 0148 CREATININE 1.01 1.24 1.32 BUN 17 19 20 I/O Yesterday: 05/14 0701 - 05/15 0700 In: 1360 [P.O.:1250] Out: 500 [Urine:350] Recommendations: Based on current renal function assessment, the following change(s) have been made to the patient's antimicrobial regimen: 1. For CrCl 60 mL/min and above, dose cefepime 2g IV q12h or 1g IV q8h (medication/dose/route/frequency) We will continue to monitor the patient???s renal function and adjust antimicrobial dosing as needed. Please page the care area pharmacist with any questions you may have. Per P&T approved Renal Dose Adjustment Policy CALLI ABDALLA RPH Nunu Avina - 05/15/2017 8:14 AM EST General Surgery Inpatient Progress Note ID: Adamaris Urena is a 61 y.o. male s/p with a pertinent PMH of recent admission to [facility] for retroperitoneal abscess unknown origin s/p IR drain on 04/27 who presents for interval CT scan and follow-up. 24hr events: ?? No acute issues ?? Swallow study shows no evidence of stomach perforation Subjective: Mild discomfort with palpation or pressure around the drain insertion sites, denies fevers, chills, SOB, CP, normal stools, tolerating PO intake O: Last value Range last 24hrs Temperature Temp: 36.9 ??C (98.4 ??F) Temp: [36.4 ??C (97.5 ??F)-37 ??C (98.6 ??F)] Heart Rate Heart Rate: 99 Heart Rate: [97-99] Blood Pressure BP: 122/76 BP: (115-122)/(59-80) Respiratory Rate Resp: 17 Resp: [16-20] SpO2 SpO2: 97 % SpO2: [95 %-98 %] 05/14 0701 - 05/15 0700 In: 1360 [P.O.:1250] Out: 500 [Urine:350] LATOYA abd: 150 cc LATOYA retroperitoneum: 0 cc BMx1 Physical Exam: General: NAD, AOx3 HEENT: anicteric sclera, PEERL CV: RRR Pulmonary: CTAB GI: obese, soft, non-tender, non-peritoneal - no rebound or guarding, LATOYA drains holding suction and draining purulent fluid, no overlying skin erythema or induration Neuro: 5/5 strength bilat U and LE, sensation intact globally MSK: wwp, no edema Derm: no obvious skin lesions Labs: Recent Labs 05/15/17 0330 05/13/17 0148 WBC 6.6 6.0 HGB 10.5* 10.2* HCT 32.6* 32.1* PLATELET 239 273 Recent Labs 05/15/17 0330 05/14/17 0206 05/13/17 0148 05/12/17 1410 NA 133* 131* 133* 131* K 4.4 4.6 4.6 4.6 CL 97* 95* 97* 98 CO2 22 22 22 21* BUN 17 19 20 22* CREATININE 1.01 1.24 1.32 1.45 GLUCOSE 100 107 103 129 CALCIUM 9.3 9.2 9.1 9.0 Microbiology: 05/10 Body Fluid Cx (abd IR drain): many WBC, NGTD New Studies: 05/14 Swallow Study: IMPRESSION No evidence of gastric perforation on limited single contrast upper GI. ASSESSMENT: Adamaris Urena is a 61 y.o. male s/p with a pertinent PMH of recent admission to [facility] [place] for retroperitoneal abscess unknown origin s/p IR drain on 04/27 who presents for interval CT scan andfollow-up. Slight interval enlargement of his prior retroperitoneal abscess likely related to poor drainage from home care with continual issues with maintaining suction and care. Surprising new collection in theLEFT barry-colic gutter. Unknown cause for bother of these collection. Given the fact that he was growing E. Coli from his drain this is likely enteric in origin. Unusual that he has not had any issues with bowel habits or abdominal pain that would be indicative of diverticulitis. He is not on any medications that would cause a spontaneous perforation. He has no know risk factors that would cause thiseither. No episodes of constipation that would lead to a stercoral ulcer. Other potential sources for his infection include a gastric leak at the angle of His or this newly developed disc space infection noted on CT scan. MRI and swallow study have ruled out these as potential causes for his perforation. Clinically stable - normal WBC count, no fevers, no abdominal pain (apart from that at his drain insertion sites). Plan for repeat CT scan of his abdomen/pelvis with IV and PO contrast to evaluate progression/resolution of his abd/retroperitoneal abscesses, attempt to determine a cause for his collecti ons, and potential pre-operative planning. PLAN: NEURO: Pain control with Tramadol PRN given intolerance of Tylenol and CLARITA CV: No acute issues, hyperkalemia resolved, hold on home Lisinopril given Cr elevation PULM: No acute issues GI: Regular diet, IR drain placed - new cultures NGTD, prior collection growing E. coli, PRN nausea medications, plan for CT abd/pelvis to evaluate progression/resolution of his abd/retroperitoneal abscesses, attempt to determine a cause for his collections, and potential pre-operative planning : No acute issues FEK: HLIV, free water restriction for hyponatremia, lytes OK - repeat tomorrow ID: Antibiotic coverage for E. Coli and possible GI contamination with Cefepime and Flagyl, ID consult for further aid in source of collections HEME: No evidence of bleeding, no acute issues ENDO: No acute issues PROPHYLAXIS: SQH, PPI DISPO: Floor status, Full Code NUNU AVINA MD Dinorah Cloud RN - 05/14/2017 9:45 PM EST Patient arrived to floor via bed from [facility]. Patient A&O x 3, lungs clear, heart rate regular. Patient has [address], dressings c/d/i. Patient states their pain level is 3/10 in back. Patient denies chest pain, shortness of breath, numbness or tingling. Patient oriented to room, call eaton, IS. RN will monitor patient. Nunu Munguia - 05/14/2017 7:51 AM EST General Surgery Inpatient Progress Note ID: Adamaris Urena is a 61 y.o. male s/p with a pertinent PMH of recent admission to [facility] [place] for retroperitoneal abscess unknown origin s/p IR drain on 04/27 who presents for interval CT scan and follow-up. 24hr events: ?? No acute events ?? MRI overnight, shows no evidence of discitis or osteomyelitis Subjective: Mild discomfort with palpation or pressure around the drain insertion sites, denies fevers, chills, SOB, CP, normal stools, tolerating PO intake O: Last value Range last 24hrs Temperature Temp: 36.4 ??C (97.5 ??F) Temp: [36.4 ??C (97.5 ??F)-37.2 ??C (99 ??F)] Heart Rate Heart Rate: 99 Heart Rate: [98-107] Blood Pressure BP: 119/77 BP: (110-129)/(69-90) Respiratory Rate Resp: 22 Resp: [18-22] SpO2 SpO2: 96 % SpO2: [96 %-99 %] 05/13 0701 - 05/14 0700 In: 2028 [P.O.:1700; I.V.:309] Out: 790 [Urine:600] LATOYA Abd: 190 cc LATOYA Retroperitoneal: 0 cc Physical Exam: General: NAD, AOx3 HEENT: anicteric sclera, PEERL CV: RRR Pulmonary: CTAB GI: obese, soft, non-tender, non-peritoneal - no rebound or guarding, LATOYA drains holding suction and draining purulent fluid, no overlying skin erythema or induration Neuro: 5/5 strength bilat U and LE, sensation intact globally MSK: wwp, no edema Derm: no obvious skin lesions Labs: Recent Labs 05/13/17 0148 05/12/17 0143 WBC 6.0 8.4 HGB 10.2* 10.7* HCT 32.1* 33.4* PLATELET 273 314 Recent Labs 05/14/17 0206 05/13/17 0148 05/12/17 1410 05/12/17 0143 05/11/17 2137 NA 131* 133* 131* 130* 132* K 4.6 4.6 4.6 5.1* 4.8 CL 95* 97* 98 96* 98 CO2 22 22 21* 20* 21* BUN 19 20 22* 23* 24* CREATININE 1.24 1.32 1.45 1.59* 1.55* GLUCOSE 107 103 129 104 104 CALCIUM 9.2 9.1 9.0 9.1 9.0 Microbiology: 05/10 Body Fluid Cx (abd IR drain): many WBC, NGTD New Studies: 1/15 MRI Lumbar Spine: IMPRESSION No findings to suggest osteomyelitis/discitis. ASSESSMENT: Adamaris Urena is a 61 y.o. male s/p with a pertinent PMH of recent admission to [facility] [place] for retroperitoneal abscess unknown origin s/p IR drain on 04/27 who presents for interval CT scan andfollow-up. Slight interval enlargement of his prior retroperitoneal abscess likely related to poor drainage from home care with continual issues with maintaining suction and care. Surprising new collection in theLEFT barry-colic gutter. Unknown cause for bother of these collection. Given the fact that he was growing E. Coli from his drain this is likely enteric in origin. Unusual that he has not had any issues with bowel habits or abdominal pain that would be indicative of diverticulitis. He is not on any medications that would cause a spontaneous perforation. He has no know risk factors that would cause thiseither. No episodes of constipation that would lead to a stercoral ulcer. Other potential sources for his infection include a gastric leak at the angle of His or this newly developed disc space infection noted on CT scan. Plan for continued IV antibiotics and IR drain management. UGI and spine MRI to r/o potential sources. Would ideally perform these today and repeat abdominal CT tomorrow to eval progression of collections. Will likely need operative intervention later this week pending the above. PLAN: NEURO: Pain control with Tramadol PRN given intolerance of Tylenol and CLARITA CV: No acute issues, hyperkalemia on admission labs - EKG shows no peak T-waves, hold on home Lisinopril given Cr elevation PULM: No acute issues GI: NPO diet (Give Meds), IR drain placed - follow-up on cultures, swallow study this AM, MRI shows no discitis or osteomyelitis, PRN nausea medications : No acute issues FEK: HLIV, given insulin and glucose for immediate hyperkalemia treatment, also given Kayexalate, free water restriction for hyponatremia, lytes OK this AM - repeat tomorrow ID: Antibiotic coverage for E. Coli and possible GI contamination with Cefepime and Flagyl HEME: No evidence of bleeding, no acute issues ENDO: No acute issues PROPHYLAXIS: SQH given slight bump in Cr (CLARITA), PPI DISPO: Floor status, Full Code NUNU AVINA MD Romana Benson E - 05/14/2017 7:04 AM EST Vascular and Interventional Radiology Inpatient Progress Note Admitted 05/10/2017 Procedure: CT-guided left paracolic abscess drain placement Post-procedure day: #4 Time of patient encounter: 08:15 24 Hour Events: No acute events. Denies abdominal pain, but endorses back pain (non-acute ~40 years ago attributed to fall). Feels fullness extending into upper left thigh. No fevers, chills. Last Value 24 Hour Range Temperature 36.4 ??C (97.5 ??F) Temp: [36.4 ??C (97.5 ??F)-37.2 ??C (99 ??F)] Heart Rate 99 Heart Rate: [98-107] Blood Pressure 119/77 BP: (110-129)/(69-90) Respiratory Rate 22 Resp: [18-22] SpO2 96 % SpO2: [96 %-99 %] Physical Exam GEN No distress, A&O CVS RRR RESP CTA B/L ABD Non tender, nondistended, LLQ dressing c/d/i Left anterior thigh No ttp, soft, no swelling or erythema Drains/Tubes: LLQ peritoneal pigtail drain 24ml: 190ml purulent material Labs: Reviewed Micro: NGTD Imaging: Reviewed Assessment: 61 y.o. male with left paracolic gutter abscess, PPD#[address] guided pigtail placement.Drain functioning with continued purulent drainage. Plan: Continue catheter to bulb suction. Flush with 5ccNS BID. Monitor drain output q shift. Patient may be discharged with drain and suction bulb in place, when he meets primary team's discharge criteria. Patient should have home VNA services to assist with drain care management and education. A follow up outpatient sinogram is scheduled for 05/31/2017 at 10:15am, arrival time at 9:15am. Romana Barrientos DO Pager #[phone] Romana Benson - 05/13/2017 1:52 PM EST Vascular and Interventional Radiology Inpatient Progress Note Admitted 05/10/2017 Procedure:CT-guided left paracolic abscess drain placement Post-procedure day: #3 Time of patient encounter:1420PM 24 Hour Events:No acute events. Patient denies pain, fevers, chills, N/V/D. Last Value 24 Hour Range Temperature 36.8 ??C (98.2 ??F) Temp: [36.6 ??C (97.9 ??F)-37 ??C (98.6 ??F)] Heart Rate 91 Heart Rate: -- Blood Pressure 118/77 BP: (108-124)/(68-84) Respiratory Rate 18 Resp: [18-19] SpO2 99 % SpO2: [91 %-99 %] Physical Exam GEN No distress, A&O CVS RRR RESP CTA B/L ABD Protuberant, non tender, nondistended ACCESS No erythema, patent catheter, suction intact Drains/Tubes: Left paragolic gutter drain: 24 hour output ~215ml purulent material, suction intact Labs: Reviewed Micro: NGTD Imaging:Reviewed Assessment: 61 y.o. male with left paracolic gutter abscess, PPD#[address] guided pigtail placement.Drain functioning with continued purulent drainage. Plan: Continue catheter to bulb suction. Flush with 5ccNS BID. Monitor drain output q shift. Romana Barrientos DO Pager #[phone] Nunu Avina - 05/13/2017 9:09 AM EST General Surgery Inpatient Progress Note ID: Adamaris Urena is a 61 y.o. male s/p with a pertinent PMH of recent admission to [facility] [place] for retroperitoneal abscess unknown origin s/p IR drain on 04/27 who presents for interval CT scan and follow-up. 24hr events: ?? No acute events ?? Continued large volume from IR abdominal drain Subjective: Mild discomfort with palpation or pressure around the drain insertion sites, denies fevers, chills, SOB, CP, normal stools, tolerating PO intake O: Last value Range last 24hrs Temperature Temp: 37 ?C (98.6 ?F) Temp: [36.3 ?C (97.3 ?F)-37 ?C (98.6 ?F)] Heart Rate Heart Rate: 91 Heart Rate: -- Blood Pressure BP: 110/69 BP: (96-124)/(57-84) Respiratory Rate Resp: 18 Resp: [18-19] SpO2 SpO2: 99 % SpO2: [91 %-99 %] 05/12 0701 - 05/13 0700 In: 1587 [P.O.:1100; I.V.:272] Out: 2009 [Urine:1625] LATOYA Abd: 385 cc LATOYA Retroperitoneal: 0 cc Physical Exam: General: NAD, AOx3 HEENT: anicteric sclera, PEERL CV: RRR Pulmonary: CTAB GI: obese, soft, non-tender, non-peritoneal - no rebound or guarding, LATOYA drains holding suction and draining purulent fluid, no overlying skin erythema or induration Neuro: 5/5 strength bilat U and LE, sensation intact globally MSK: wwp, no edema Derm: no obvious skin lesions Labs: Recent Labs 05/13/17 0148 05/12/17 0143 05/11/17 0057 05/10/17 1316 WBC 6.0 8.4 9.3 13.1* HGB 10.2* 10.7* 9.7* 10.5* HCT 32.1* 33.4* 30.5* 33.0* PLATELET 273 314 310 336 PT -- -- -- 13.9 INR -- -- -- 1.1 PTT -- -- -- 32 Recent Labs 05/13/17 01405/12/17 1410 05/12/17 0143 05/11/17 2137 05/11/17 1534 NA 133* 131* 130* 132* 132* K 4.6 4.6 5.1* 4.8 5.4* CL 97* 98 96* 98 97* CO2 22 21* 20* 21* 21* BUN 20 22* 23* 24* 24* CREATININE 1.32 1.45 1.59* 1.55* 1.64* GLUCOSE 103 129 104 104 112 CALCIUM 9.1 9.0 9.1 9.0 9.1 Microbiology: 05/10 Body Fluid Cx (abd IR drain): many WBC, NGTD New Studies: 05/12 Abd Xray: IMPRESSION No radiographic evidence of obstruction or perforation. Contrast appears to be adequately cleared for UGI. ASSESSMENT: Adamaris Urena is a 61 y.o. male s/p with a pertinent PMH of recent admission to [facility] [place] for retroperitoneal abscess unknown origin s/p IR drain on 04/27 who presents for interval CT scan andfollow-up. Slight interval enlargement of his prior retroperitoneal abscess likely related to poor drainage from home care with continual issues with maintaining suction and care. Surprising new collection in theLEFT barry-colic gutter. Unknown cause for bother of these collection. Given the fact that he was growing E. Coli from his drain this is likely enteric in origin. Unusual that he has not had any issues with bowel habits or abdominal pain that would be indicative of diverticulitis. He is not on any medications that would cause a spontaneous perforation. He has no know risk factors that would cause thiseither. No episodes of constipation that would lead to a stercoral ulcer. Other potential sources for his infection include a gastric leak at the angle of His or this newly developed disc space infection noted on CT scan. Plan for continued IV antibiotics and IR drain management. UGI and spine MRI to r/o potential sources. Would ideally perform these today and repeat abdominal CT tomorrow to eval progression of collections. Will likely need operative intervention later this week pending the above. PLAN: NEURO: Pain control with Tramadol PRN given intolerance of Tylenol and CLARITA CV: No acute issues, hyperkalemia on admission labs - EKG shows no peak T-waves, hold on home Lisinopril given Cr elevation PULM: No acute issues GI: Regular diet NPO diet (Give Meds), IR drain placed - follow-up on cultures, will try to obtain a swallow study tor/o stomach perforation and an MRI spine to r/o spinal source, PRN nausea medications : No acute issues FEK: HLIV, given insulin and glucose for immediate hyperkalemia treatment, also given Kayexalate, free water restriction for hyponatremia, lytes OK this AM - repeat tomorrow ID: Antibiotic coverage for E. Coli and possible GI contamination with Cefepime and Flagyl HEME: No evidence of bleeding, no acute issues ENDO: No acute issues PROPHYLAXIS: SQH given slight bump in Cr (CLARITA), PPI DISPO: Floor status, Full Code NUNU AVINA MD Nunu Avina - 05/12/2017 8:37 AM EST General Surgery Inpatient Progress Note ID: Adamaris Urena is a 61 y.o. male s/p with a pertinent PMH of recent admission to [facility] [place] for retroperitoneal abscess unknown origin s/p IR drain on 04/27 who presents for interval CT scan and follow-up. 24hr events: ?? Electrolyte management of hyperkalemia and hyponatremia with Insulin/Dextrose/Kayexcelate and free water restriction ?? Lower back pain stable Subjective: Mild discomfort with palpation or pressure around the drain insertion sites, denies fevers, chills, SOB, CP, normal stools, tolerating PO intake O: Last value Range last 24hrs Temperature Temp: 36.5 ??C (97.7 ??F) Temp: [36.4 ??C (97.5 ??F)-37 ??C (98.6 ??F)] Heart Rate Heart Rate: 91 Heart Rate: [91-96] Blood Pressure BP: 103/57 BP: (101-116)/(57-78) Respiratory Rate Resp: 18 Resp: [18-20] SpO2 SpO2: 95 % SpO2: [93 %-96 %] 05/11 0701 - 05/12 0700 In: 1189 [P.O.:590; I.V.:584] Out: 2955 [Urine:2100] Physical Exam: General: NAD, AOx3 HEENT: anicteric sclera, PEERL CV: RRR Pulmonary: CTAB GI: obese, soft, non-tender, non-peritoneal - no rebound or guarding, LATOYA drains holding suction and draining purulent fluid, no overlying skin erythema or induration Neuro: 5/5 strength bilat U and LE, sensation intact globally MSK: wwp, no edema Derm: no obvious skin lesions Labs: Recent Labs 05/12/17 0143 05/11/17 0057 05/10/17 1316 WBC 8.4 9.3 13.1* HGB 10.7* 9.7* 10.5* HCT 33.4* 30.5* 33.0* PLATELET 314 310 336 PT -- -- 13.9 INR -- -- 1.1 PTT -- -- 32 Recent Labs 05/12/17 0143 05/11/17 2137 05/11/17 1534 05/11/17 0949 05/11/17 0057 NA 130* 132* 132* 132* 129* K 5.1* 4.8 5.4* 5.1* 5.6* CL 96* 98 97* 97* 95* CO2 20* 21* 21* 20* 21* BUN 23* 24* 24* 23* 24* CREATININE 1.59* 1.55* 1.64* 1.56* 1.53* GLUCOSE 104 104 112 131 97 CALCIUM 9.1 9.0 9.1 9.2 9.3 Microbiology: 05/10 Body Fluid Cx (abd IR drain): many WBC, NGTD New Studies: 05/12 KUB: Pending ASSESSMENT: Adamaris Urena is a 61 y.o. male s/p with a pertinent PMH of recent admission to [facility] [place] for retroperitoneal abscess unknown origin s/p IR drain on 04/27 who presents for interval CT scan andfollow-up. Slight interval enlargement of his prior retroperitoneal abscess likely related to poor drainage from home care with continual issues with maintaining suction and care. Surprising new collection in theLEFT barry-colic gutter. Unknown cause for bother of these collection. Given the fact that he was growing E. Coli from his drain this is likely enteric in origin. Unusual that he has not had any issues with bowel habits or abdominal pain that would be indicative of diverticulitis. He is not on any medications that would cause a spontaneous perforation. He has no know risk factors that would cause thiseither. No episodes of constipation that would lead to a stercoral ulcer. Other potential sources for his infection include a gastric leak at the angle of His or this newly developed disc space infection noted on CT scan. Plan for continued IV antibiotics and IR drain management. Will discuss obtaining further imaging tor/o stomach or spine source. KUB today to eval ability to perform swallow and will talk with Radiology about limited MRI spine PLAN: NEURO: Pain control with Tramadol PRN given intolerance of Tylenol and CLARITA CV: No acute issues, hyperkalemia on admission labs - EKG shows no peak T-waves, hold on home Lisinopril given Cr elevation PULM: No acute issues GI: Regular diet, IR drain placed - follow-up on cultures, will try to obtain a swallow study at some point to r/o stomach perf, will discuss need for MRI spine to r/o spinal source, PRN nausea medications : No acute issues FEK: HLIV, given insulin and glucose for immediate hyperkalemia treatment, also given Kayexalate, free water restriction for hyponatremia, repeat BMP at 1400 to follow correction ID: Antibiotic coverage for E. Coli and possible GI contamination with Cefepime and Flagyl HEME: No evidence of bleeding, no acute issues ENDO: No acute issues PROPHYLAXIS: SQH given slight bump in Cr (CLARITA), PPI DISPO: Floor status, Full Code NUNU AVINA MD Rahat Roca MD - 05/11/2017 8:23 AM EST INTERVENTIONAL RADIOLOGY Inpatient Progress Note Admitted 05/10/2017 Procedure(s): CT guided RP abscess drain placement Post-procedure day: #1 Time of patient encounter: 0750 24 Hour Events: Pt notes decreased pressure in his abd since drain placement. No n/v/f/c. Last Value 24 Hour Range Temperature 36.6 ??C (97.9 ??F) Temp: [36.2 ??C (97.2 ??F)-37 ??C (98.6 ??F)] Heart Rate 92 Heart Rate: [83-96] Blood Pressure 122/71 BP: (91-135)/(46-76) Respiratory Rate 20 Resp: [12-27] SpO2 95 % SpO2: [93 %-98 %] Physical Exam GEN No distress, A&O ABD No rebound, no significant ttp Labs: WBC 13.1 to 9.3 this AM. Drains/Tubes: 05/10/16 Drain: 545 cc output 05/02/16 Drain 50 cc output Assessment: 61 y.o. male s/p IR drain placement for large retroperitoneal abscess Culture results=e.coli. Leukocytosis had been down trending 17>14>11.9. CT on 05/10 demonstrated a new collectionin the left paracolic gutter, s/p CT guided drain. Both drains have output as above and WBC count has decreased since yesterday. Plan: -Drain output as above with decreased WBC count. -IR will continue to follow. Rahat Roca MD IR fellow Sanjiv Nunu J - 05/11/2017 7:54 AM EST General Surgery Inpatient Progress Note ID: Adamaris Urena is a 61 y.o. male s/p with a pertinent PMH of recent admission to [facility] [place] for retroperitoneal abscess unknown origin s/p IR drain on 04/27 who presents for interval CT scan and follow-up. 24hr events: ?? IR drain placed with 545 cc of purulent drainage obtained ?? Afebrile and hemodynamically stable overnight Subjective: no complaints this AM, denies n/v/cp/sob O: Last value Range last 24hrs Temperature Temp: 36.9 ??C (98.4 ??F) Temp: [36.2 ??C (97.2 ??F)-37 ??C (98.6 ??F)] Heart Rate Heart Rate: 85 Heart Rate: [83-96] Blood Pressure BP: 112/71 BP: (91-135)/(46-76) Respiratory Rate Resp: 27 Resp: [12-27] SpO2 SpO2: 96 % SpO2: [93 %-98 %] 05/10 0701 - 05/11 0700 In: 1763 [P.O.:350; I.V.:1403] Out: 2345 [Urine:1750] Physical Exam: General: NAD, AOx3 HEENT: anicteric sclera, PEERL CV: RRR Pulmonary: CTAB GI: obese, soft, non-tender, non-peritoneal - no rebound or guarding, LATOYA drains holding suction and draining purulent fluid, no overlying skin erythema or induration Neuro: 5/5 strength bilat U and LE, sensation intact globally MSK: wwp, no edema Derm: no obvious skin lesions Labs: Recent Labs 05/11/17 0057 05/10/17 1316 WBC 9.3 13.1* HGB 9.7* 10.5* HCT 30.5* 33.0* PLATELET 310 336 PT -- 13.9 INR -- 1.1 PTT -- 32 Recent Labs 05/11/17 0057 05/10/17 1925 05/10/17 1316 NA 129* 131* 129* K 5.6* 5.4* 5.9* CL 95* 96* 95* CO2 21* 21* 20* BUN 24* 25* 24* CREATININE 1.53* 1.68* 1.65* GLUCOSE 97 85 93 CALCIUM 9.3 9.4 9.9 Microbiology: 05/10 Body Fluid Cx (abd IR drain): many WBC New Studies: 05/10 Ct Abd/Pelvis: IMPRESSION 1. Mild interval enlargement of a large left retroperitoneal abscess contiguous with enlarging left psoas collection. A pigtail catheter remains satisfactorily centered within the retroperitoneal collection. 2. Interval organization and development of a 23 cm collection in the left paracolic gutter likely a separate abscess. 3. New air within the L2-L3 intervertebral disc which is at the level of the left psoas abscess, consider MR to evaluate for discitis-osteomyelitis. 4. Trace residual left pleural fluid and left basilar atelectasis. 5. Moderate splenomegaly. ASSESSMENT: Adamaris Urena is a 61 y.o. male s/p with a pertinent PMH of recent admission to [facility] for retroperitoneal abscess unknown origin s/p IR drain on 04/27 who presents for interval CT scan andfollow-up. Slight interval enlargement of his prior retroperitoneal abscess likely related to poor drainage from home care with continual issues with maintaining suction and care. Surprising new collection in theLEFT barry-colic gutter. Unknown cause for bother of these collection. Given the fact that he was growing E. Coli from his drain this is likely enteric in origin. Unusual that he has not had any issues with bowel habits or abdominal pain that would be indicative of diverticulitis. He is not on any medications that would cause a spontaneous perforation. He has no know risk factors that would cause thiseither. No episodes of constipation that would lead to a stercoral ulcer. Other potential sources for his infection include a gastric leak at the angle of His or this newly developed disc space infection noted on CT scan. Plan for continued IV antibiotics and IR drain management. Will discuss obtaining further imaging tor/o stomach or spine source. PLAN: NEURO: Pain control with Tramadol PRN given intolerance of Tylenol and CLARITA CV: No acute issues, hyperkalemia on admission labs - EKG shows no peak T-waves, hold on home Lisinopril given Cr elevation PULM: No acute issues GI: Regular diet, IR drain placed - follow-up on cultures, will try to obtain a swallow study at some point to r/o stomach perf, will discuss need for MRI spine to r/o spinal source, PRN nausea medications : No acute issues FEK: HLIV, given insulin and glucose for immediate hyperkalemia treatment, also given Kayexalate, free water restriction for hyponatremia ID: Antibiotic coverage for E. Coli and possible GI contamination with Cefepime and Flagyl HEME: No evidence of bleeding, no acute issues ENDO: No acute issues PROPHYLAXIS: SQH given slight bump in Cr (CLARITA), PPI DISPO: Floor status, Full Code NUNU AVINA MD Associated attestation - Dom Lewis MD - 05/11/2017 10:41 AM EST I have seen the patient and reviewed the resident's above history and I agree with the details as written.?The assessment and plan were formulated in discussion with me and I agree with them as documented. A 61 yoM, morbidly obese with multiple retroperitoneal abscess collection, unclear etiology. IR drain placed in a new collection yesterday. The patient has no complaints. On exam, abdomen soft, non tender. New drain with purulent material, not holding suction. Older drain, clear drainage. Plan as outlined, contact IR for drain issue. Tanner Painter RN - 05/10/2017 6:42 PM EST Patient arrived to unit early this afternoon, then immediately went to IR for a second LATOYA drain placement. After coming back to floor, new LLQ LATOYA putting out copious amounts of purulent drainage, needing to be emptied approx. Every 10 minutes. Potassium was 5.9, so 50% dextrose in 50mL given, followedby 0.1mL insulin. Patient asymptomatic, HR regular upon auscultation. Chandrika Lazo RN - 05/10/2017 1:35 PM EST [facility] DATABASE Name: ADAMARIS URENA Date of : 1955 AGE 61 y.o. Address: [address] [address] (home) Mobile: Telephone Information: Referring Provider: Luis Nava REASON FOR VISIT: drain Assessment/Plan: CT guided drain placement into the new left paracolic gutter collection ? Labs: None new needed Prophylactic antibiotic: [none] Medications to discontinue (and when): [none] Patient Position: [supine] Access site: Left anterolateral abdomen General Anesthesia: [no] Allergies Allergen Reactions ??? Tylenol [Acetaminophen] Causes acid reflux Pertinent PMH: Patient Active Problem List Diagnosis Code ??? Retroperitoneal abscess K68.19 ??? Intra-abdominal abscess K65.1 Pertinent PSH: No past surgical history on file. Date/Procedure ?Meds given/comments 04/27/17 CT Guided Drain Retroperitoneal Placement for Abscess Fentanyl 175 mcg IV ??05/02/16 Upsize drain to 12.5 Fentanyl 100 mcg iv 05/10/17 CT abscess drain #2, abdomen?? Fentanyl 150 mcg IV, Versed 2 mg IV ? Laboratory Results: Lab Results Component Value Date CREATININE 1.20 05/04/2017 Lab Results Component Value Date K 4.1 05/04/2017 Lab Results Component Value Date PLATELET 336 05/10/2017 Medications: Prior to Admission medications Medication Sig Start Date End Date Taking? Authorizing Provider lisinopril (PRINIVIL;ZESTRIL) 40 mg Tablet Take 40 mg by mouth daily. PROVIDER, HISTORICAL sulfamethoxazole-trimethoprim (BACTRIM DS) 800-160 mg Tablet Take 2 tablets by mouth 2 times daily for 14 days. 05/04/17 05/18/17 Gilma Willard MD Ko Gillespie APRN - 05/10/2017 1:05 PM EST Images from the original note were not included. FOCUSED H&P and PRE-PROCEDURE VIR NOTE: PCP: Odalys Laird MD Referring Physician: Luis Nava Planned Procedure: Image guided drain placement Procedure Indication: New fluid collection in the left paracolic gutter Presenting Diagnosis/ Complaint: 61 y.o. male s/p IR drain placement for large retroperitoneal abscess Culture results=e. coli. Leukocytosis had been down trending 17>14>11.9. CT scan on 03/10 shows interval organization and development of a 23 cm collection in the left paracolic gutter likely a separate abscess. Image guided drain placement is requested. Past Medical/Surgical History: Patient Active Problem List Diagnosis Code ??? Retroperitoneal abscess K68.19 ??? Intra-abdominal abscess K65.1 No past medical history on file. No past surgical history on file. Medications: Current Facility-Administered Medications on File Prior to Encounter Medication Dose Route Frequency Provider Last Rate Last Dose ??? [COMPLETED] iodixanol (VISIPAQUE) 320 mg iodine/mL injection 0-200 mL 0-200 mL Intravenous Once PRN Jorge Urbano MD 120 mL at 05/10/17 1106 Current Outpatient Prescriptions on File Prior to Encounter Medication Sig Dispense Refill ??? lisinopril (PRINIVIL;ZESTRIL) 40 mg Tablet Take 40 mg by mouth daily. ??? sulfamethoxazole-trimethoprim (BACTRIM DS) 800-160 mg Tablet Take 2 tablets by mouth 2 times daily for 14 days. 56 tablet 0 Allergies: Tylenol [acetaminophen] Social History and Habits: Social History Social History ??? Marital status: Spouse name: N/A ??? Number of children: N/A ??? Years of education: N/A Occupational History ??? Not on file. Social History Main Topics ??? Smoking status: Former Smoker Packs/day: 4.00 Years: 22.00 Types: Cigarettes Start date: 04/28/1968 Quit date: 04/28/1986 ??? Smokeless tobacco: Former User Types: Chew Quit date: 03/24/2017 Comment: 1 can/ day tobacco chew ??? Alcohol use Yes Comment: occasional ??? Drug use: No ??? Sexual activity: No Other Topics Concern ??? Not on file Social History Narrative Significant Family History: No family history on file. Physical Exam: Pending Labs: Lab Results Component Value Date WBC 11.9 (H) 05/04/2017 HCT 32.2 (L) 05/04/2017 PLATELET 348 05/04/2017 BUN 13 05/04/2017 CREATININE 1.20 05/04/2017 ALKPHOS 95 04/27/2017 AST 15 04/27/2017 ALBUMIN 2.9 (L) 04/27/2017 BILITOT 0.8 04/27/2017 ALT 11 04/27/2017 PROT 7.9 04/27/2017 Prior Imaging: GEN: NAD CV: RRR No R/G/M PULM: CTA bilaterally ASA 3 MALMAPATI 1 Assessment/Plan: CT guided drain placement into the new left paracolic gutter collection Labs: None new needed Prophylactic antibiotic: [none] Medications to discontinue (and when): [none] Patient Position: [supine] Access site: Left anterolateral abdomen General Anesthesia: [no] documented in this encounter H&P Notes Nunu Avina - 05/10/2017 4:[address] [facility] Department of General Surgery History & Physical CC: Interval follow-up HPI: Adamaris Urena is a 61 y.o.male with a pertinent PMH of recent admission to [facility] for retroperitoneal abscess unknown origin s/p IR drain on 04/27 who presents for interval CT scan and follow-up. Mr. Urena states that symptomatically he has no major issues - he denies any abdominal pain or fullness, he is having normal BMs (non-bloody), tolerating PO intake without any issues, denies any fevers or chills. With further prompting he does endorse some discomfort in the LEFT groin region, but that this is similar to what prompted his prior orchiectomy and injection. Regarding his drain, his personal home record was reviewed. He has been putting out approximately 20-30 cc per day of purulent fluid. He has had multiple issues with the stop-cock on the drain cracking (at least 3 occasions). Hismost recent stop-cock was placed yesterday and seems to be working well. He and his daughter have been flushing the drain with 10-20 cc of fluid to help maintain patency. CT scan review, findings reported below. PMH: Patient Active Problem List Diagnosis Code ??? Retroperitoneal abscess K68.19 ??? Intra-abdominal abscess K65.1 Past Medical History: Diagnosis Date ??? HTN (hypertension) ??? Obesity PSH: Past Surgical History: Procedure Laterality Date ??? ORCHIOPEXY Left Allergies: Allergies Allergen Reactions ??? Tylenol [Acetaminophen] Causes acid reflux Medications: Current Facility-Administered Medications on File Prior to Encounter Medication Dose Route Frequency Provider Last Rate Last Dose ??? [COMPLETED] iodixanol (VISIPAQUE) 320 mg iodine/mL injection 0-200 mL 0-200 mL Intravenous Once PRN Jorge Urbano MD 120 mL at 05/10/17 1106 ??? [DISCONTINUED] midazolam (PF) (VERSED) 1 mg/mL injection ??? [DISCONTINUED] fentaNYL (PF) 50 mcg/mL injection Current Outpatient Prescriptions on File Prior to Encounter Medication Sig Dispense Refill ??? lisinopril (PRINIVIL;ZESTRIL) 40 mg Tablet Take 40 mg by mouth daily. ??? sulfamethoxazole-trimethoprim (BACTRIM DS) 800-160 mg Tablet Take 2 tablets by mouth 2 times daily for 14 days. 56 tablet 0 Social history: Social History Social History ??? Marital status: Spouse name: N/A ??? Number of children: N/A ??? Years of education: N/A Occupational History ??? Not on file. Social History Main Topics ??? Smoking status: Former Smoker Packs/day: 4.00 Years: 22.00 Types: Cigarettes Start date: 04/28/1968 Quit date: 04/28/1986 ??? Smokeless tobacco: Former User Types: Chew Quit date: 03/24/2017 Comment: 1 can/ day tobacco chew ??? Alcohol use Yes Comment: occasional ??? Drug use: No ??? Sexual activity: No Other Topics Concern ??? Not on file Social History Narrative Family history: No family history on file. ROS: +/- as per HPI and PMH, otherwise negative for 12 systems reviewed. Physical Exam: Temp: [36.3 ?C (97.4 ?F)-36.9 ?C (98.5 ?F)] Heart Rate: [88-96] Resp: [12-19] BP: (91-119)/(46-69) SpO2: [95 %-98 %] Heart Rate from SPO2: -- Intake/Output Summary (Last 24 hours) at 05/10/17 1632 Last data filed at 05/10/17 1600 Gross per 24 hour Intake 425 ml Output 90 ml Net 335 ml General: NAD, AOx3 HEENT: anicteric sclera, PEERL CV: RRR Pulmonary: CTAB GI: obese, soft, non-tender, non-peritoneal - no rebound or guarding, LATOYA drain with approximately 50cc of purulent fluid, holding suction, no overlying skin erythema or induration Neuro: 5/5 strength bilat U and LE, sensation intact globally MSK: wwp, no edema Derm: no obvious skin lesions Labs: Recent Results (from the past 24 hour(s)) Basic Metabolic Panel (non-fasting) Result Value Ref Range Glucose Lvl 93 65 - 199 mg/dL BUN 24 (H) 10 - 20 mg/dL Creatinine 1.65 (H) 0.80 - 1.50 mg/dL Sodium 129 (L) 135 - 145 mmol/L Potassium 5.9 (H) 3.5 - 5.0 mmol/L Chloride 95 (L) 98 - 107 mmol/L CO2 20 (L) 22 - 31 mmol/L Anion Gap 14 5 - 15 mmol/L Calcium 9.9 8.5 - 10.5 mg/dL Estimated GFR 43 (L) >=60 APTT Result Value Ref Range PTT 32 25 - 35 sec Prothrombin Time Result Value Ref Range PT 13.9 11.8 - 14.0 sec INR 1.1 0.9 - 1.1 Hemogram Result Value Ref Range WBC 13.1 (H) 4.0 - 9.5 x10(3)/mcL RBC 3.67 (L) 4.58 - 5.54 x10(6)/mcL Hemoglobin 10.5 (L) 13.7 - 16.5 gm/dL Hematocrit 33.0 (L) 40.5 - 48.5 % MCV 89.9 82.9 - 93.1 fL MCH 28.6 27.5 - 32.1 pg MCHC 31.8 (L) 32.0 - 35.7 gm/dL Platelets 336 145 - 357 x10(3)/mcL RDWSD 51.8 (H) 36.0 - 45.0 fL RDWCV 16.2 (H) 11.4 - 13.8 % MPV 8.7 7.6 - 12.9 fL nRBC % Auto 0.0 % nRBC Abs Auto 0.000 0.000 - 0.000 x10(3)/mcL Differential, Automated Result Value Ref Range Neutrophils % 66.4 % Neutr Abs (ANC) 8.68 (H) 1.70 - 6.10 x10(3)/mcL Lymphocytes % 24.9 % Lymphocytes Abs 3.2 0.9 - 3.2 x10(3)/mcL Monocytes % 5.5 % Monocyte Abs 0.7 0.3 - 0.9 x10(3)/mcL Eosinophils % 1.7 % Eosinophils Abs 0.2 0.0 - 0.4 x10(3)/mcL Basophils % 0.5 % Basophils Abs 0.1 0.0 - 0.1 x10(3)/mcL Immature Gran % 1.00 % Mehnaz Gran Abs 0.13 (H) 0.00 - 0.04 x10(3)/mcL Microbiology: 04/27 Body Fluid Cx: E. coli Studies: 05/10 CT Abd/Pelvis: IMPRESSION 1. Mild interval enlargement of a large left retroperitoneal abscess contiguous with enlarging left psoas collection. A pigtail catheter remains satisfactorily centered within the retroperitoneal collection. 2. Interval organization and development of a 23 cm collection in the left paracolic gutter likely a separate abscess. 3. New air within the L2-L3 intervertebral disc which is at the level of the left psoas abscess, consider MR to evaluate for discitis-osteomyelitis. 4. Trace residual left pleural fluid and left basilar atelectasis. 5. Moderate splenomegaly. ASSESSMENT: Adamaris Urena is a 61 y.o. male with a pertinent PMH of recent admission to [facility] for retroperitoneal abscess unknown origin s/p IR drain on 04/27 who presents for interval CT scan and follow-up. Slight interval enlargement of his prior retroperitoneal abscess likely related to poor drainage from home care with continual issues with maintaining suction and care. Surprising new collection in theLEFT barry-colic gutter. Unknown cause for bother of these collection. Given the fact that he was growing E. Coli from his drain this is likely enteric in origin. Unusual that he has not had any issues with bowel habits or abdominal pain that would be indicative of diverticulitis. He is not on any medications that would cause a spontaneous perforation. He has no know risk factors that would cause thiseither. No episodes of constipation that would lead to a stercoral ulcer. Other potential sources for his infection include a gastric leak at the angle of His or this newly developed disc space infection noted on CT scan. Given his clinical stability at this time will plan for IR drainage of his new collection. Admissionto the hospital for close observation and work-up. He should have close attention paid to maintaining his retroperitoneal and abd drains for continued drainage (as reported above these tend to malfunction likely related to obese body habitus and positioning). Cultures of new drain. IV antibiotics. Will discuss posibility of MRI to eval disc space abnormality and swallow study to further evaluate stomach for potential leak. Pending the above and his improvement, he may ultimately need operative exploration and drainage. Given the uncertain cause, as well as the retroperitoneal and now intra-abdominal locations this is likely to be difficult. PLAN: NEURO: Pain control with Tramadol PRN given intolerance of Tylenol and CLARITA CV: No acute issues, hyperkalemia on admission labs - EKG to eval for peak T- waves, hold on home Lisinopril given Cr elevation PULM: No acute issues GI: Diet NPO diet (Give Meds), OK to have diet when done with IR drain, cultures to be drawn on new drain, PRN nausea medications : No acute issues FEK: Switch to NS from LR given hyponatremia and hyperkalemia ID: Antibiotic coverage for E. Coli and possible GI contamination with Cefepime and Flagyl HEME: No evidence of bleeding, no acute issues ENDO: No acute issues PROPHYLAXIS: Lovenox, PPI DISPO: Floor status, Full Code NUNU AVINA MD documented in this encounter Miscellaneous Notes Plan of Care - Dinorah Hutson RN - 05/16/2017 4:16 AM EST Problem: Patient Care Overview Goal: Plan of Care Review Outcome: Ongoing (Interventions Implemented as Appropriate) 05/16/17 0413 Coping/Psychosocial Plan Of Care Reviewed With patient Plan of Care Review Progress no change OUTCOME EVALUATION NOTE: OUTCOME SUMMARY: Patient progressing towards d/c goals appropriately at this time. Patients pain adequately controlled, see MAR for medications given. Pt resting in between care. No acute events overnight. VSS, see docflowsheets for IR drain output. Will continue to monitor and help patient reach d/c goals. PLAN MOVING FORWARD: Pain control Monitor drain output D/c planning INDIVIDUALIZED FALL PREVENTION: Patient is currently a medium risk to Fall. Patient educated on bed/chair alarm, demonstrates proper use of call eaton and verbalizes understanding of fall preventions implemented. Patient-specific fall risk factors per assessment: [current deficits]: Pain, Medications, Hospital Environment. Assistance [level of assistance required for transfers and ambulation]: Independent Supervision [direct monitoring required during toileting and ADLs]: No assistance with ADL's Surveillance [continuous indirect monitoring]: Masimo, Purposeful Rounding, Bedside Report Patient-specific fall prevention interventions for sensory deficits provided, if applicable: [X] N/A CPG GOAL OUTCOME EVALUATION: Goal: Fall Prevention-Safe Patient Handling Outcome: Ongoing (Interventions Implemented as Appropriate) 05/15/17 0843 05/15/17 2470 Activity Activity Type -- up ad julian Activity Assistance Provided assistance, stand-by -- Assistive Device Utilized none -- Daily Care Interventions Self-Care Promotion -- independence encouraged;BADL personal objects within reach;BADL personal routines maintained;safe use of adaptive equipment encouraged Gonzales Fall Risk History of Falling -- 0 Secondary Diagnosis -- 15 Ambulatory Aids -- 0 Intravenous Therapy/Heparin/Saline Lock -- 20 Gait/Transferring -- 0 Mental Status -- 0 Score -- 35 OTHER Gonzales Fall Risk -- Med Restraint Interventions Safety Promotion/Fall Prevention -- activity supervised;fall prevention program maintained;nonskid shoes/slippers when out of bed;safety round/check completed Positioning Body Position -- supine, head elevated Goal: Infection Control Outcome: Ongoing (Interventions Implemented as Appropriate) 05/15/172104 Coping Strategies Supportive Measures active listening utilized;counseling provided;decision- making supported Safety Interventions Isolation Precautions standard precautions maintained Infection Prevention barrier precautions utilized;rest/sleep promoted Goal: Discharge Needs Assessment Outcome: Ongoing (Interventions Implemented as Appropriate) 05/14/17 0336 05/15/17 1554 Discharge Needs Assessment Concerns To Be Addressed -- no discharge needs identified;denies needs/concerns at this time Readmission Within The Last 30 Days -- no previous admission in last 30 days Living Environment Transportation Available family or friend will provide -- Goal: Interdisciplinary Rounds/Family Conf Outcome: Ongoing (Interventions Implemented as Appropriate) 05/16/17 0413 Interdisciplinary Rounds/Family Conf Participants nursing;patient Problem: Infection, Risk/Actual (Adult) Goal: Infection Prevention/Resolution Patient will demonstrate the desired outcomes by discharge/transition of care. Outcome: Ongoing (Interventions Implemented as Appropriate) 05/16/17 0413 Infection, Risk/Actual (Adult) Infection Prevention/Resolution making progress toward outcome Problem: Pain, Chronic (Adult) Goal: Acceptable Pain Control/Comfort Level Patient will demonstrate the desired outcomes by discharge/transition of care. Outcome: Ongoing (Interventions Implemented as Appropriate) 05/16/17 0413 Pain, Chronic (Adult) Acceptable Pain Control/Comfort Level making progress toward outcome Consult Note - Tish You MD - 05/15/2017 9:46 PM EST INFECTIOUS DISEASE INITIAL CONSULT NOTE Reason for Consult: Recurrent retroperitoneal abscess Consulting Service: General surgery Consulting Attending: Gilson Mcgee MD Admission Date: 05/10/2017 History of Present Illness: 61 y.o. male with no known past medical history, he was recently admitted to [facility] from 04/27/2017-05/04/2017 due to retroperitoneal abscess s/p IR guided drainage. 04/26/2017 he presented to outside hospital due to feeling poorly felt fatigue in general and couldnot eat or drink. He denied fever, no shaking no chills, no abdominal pain, he stated that he has diarrhea for about a month. He also endorsed 50 pounds weight loss. He had a CAT scan from outside hospital that show rectal peritoneal abscess diameter about 20 cm. He was transferred here for further evaluation. 04/27/2017, he was admitted under general surgery service, underwent IR guided drainage of retroperitoneal abscess culture yielded pansensitive E. Coli. He received cefepime and metronidazole while he was inpatient. Antibiotics were changed to Bactrim double strength 2 tablets twice daily this prescription for 1 month. 05/02/2017, he stated that he developed left side georges pain he also notes that the drain was decreased. The pigtail catheter size was change. 05/10/2017; he came here for a follow-up visit with general surgery clinic. A repeat CT abdomen and pelvis showed Interval organization and development of a 23 cm collection in the left paracolic gutter likely a separate abscess he underwent, IR guided drainage of an abscess 05/10/2017 culture are no growth to date. He has been receiving cefepime and metronidazole since 05/10/2017. He also underwent upper GI study that was negative for gastric perforation. He also underwent MRI lumbar spine that was negative for lumbar osteomyelitis. Given the history of recurrent abscess, ID is called to comment for work up for source and appropriate antibiotics. He has a repeat CT today that showed interval resolution of the left lower quadrant abdominal wall abscess and interval reduction in size in the left psoas abscess. We reviewed CT scan with radiologist, no mass seen in the colon. Source of infections remains unclear. He denies history of urinary symptoms, no increased urinary frequency, no pain with urination. He never had colonoscopy and very anxious to get it done. Review of Systems: Pertinent positives and negatives noted in HPI. All other systems reviewed and found negative. Allergies: Allergies Allergen Reactions ??? Tylenol [Acetaminophen] Causes acid reflux Past Medical and Surgical History: Past Medical History: Diagnosis Date ??? HTN (hypertension) ??? Obesity Past Surgical History: Procedure Laterality Date ??? ORCHIOPEXY Left Family History: He denies family history of colon cancer Social History and Habits: Social History Social [...] ??? 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 He stated that his diet has been the same for more than 20 years, he usually eat junk food in the morning and try to eat vegetable and meat at dinner time.He denies history of traveling out of the state within the past year. Denies history of eating raw food or unpasteurized milk. Physical Exam: Last value Range last 24 hrs Temperature Temp: 37.1 ??C (98.8 ??F) Temp: [36.4 ??C (97.5 ??F)-37.1 ??C (98.8 ??F)] Heart Rate Heart Rate: 99 Heart Rate: -- Blood Pressure BP: 122/76 BP: (117-122)/(76-80) Respiratory Rate Resp: 16 Resp: [16-17] SpO2 SpO2: 95 % SpO2: [95 %-97 %] General Looks well, alert and oriented obese male, HEENT No scleral icterus, clear oropharynx Heart Regular, no murmur Lungs Clear Abdomen Normoactive bowel sounds, soft, not tender, no hepatosplenomegaly no CVA tenderness, Pigtail catheter is located on left georges label #1 drain red fluid and anterior abdominal wall drainyellow thick fluid. Extremities No joint swelling, no edema Lymphnodes No cervical lymphadenopathy Skin No rash Neuro Grossly intact Lines No central lines Laboratory: Recent Labs 05/15/17 0330 05/13/17 01405/12/17 014 WBC 6.6 6.0 8.4 HGB 10.5* 10.2* 10.7* HCT 32.6* 32.1* 33.4* PLATELET 239 273 314 Recent Labs 05/15/17 0330 05/14/17 0206 05/13/17147 NA 133* 131* 133* K 4.4 4.6 4.6 CL 97* 95* 97* CO2 22 22 22 BUN 17 19 20 CREATININE 1.01 1.24 1.32 No results for input(s): AST, ALT, ALKPHOS, BILITOT, BILIDIR in the last 168 hours. No results found for: CRP No results found for: SEDRATE No results found for: SPGRAVITYUA, PHUADIP, PROTEINUADIP, GLUCOSEU, KETONESUA, UROBILIUADIP, BLOODUADIP, NITRATEUA, LEUKOESTERUA, WBCUA, RBCUA, BILIRUBINUA Microbiology: Blood Cultures: 04/28 ; no growth Retroperitoneal abscess 04/27: E. coli, pansensitive strain 05/10/2017 Abdominal fluid; no growth to date Radiology/Studies/Procedures: CT abdomen pelvis 05/10/17 1. Mild interval enlargement of a large left retroperitoneal abscess contiguouwith enlarging left psoas collection. A pigtail catheter remains satisfactorilycentered within the retroperitoneal collection. 2. Interval organization and development of a 23 cm collection in the left paracolic gutter likely aseparate abscess. 3. New air within the L2-L3 intervertebral disc which is at the level of the left psoas abscess, consider MR to evaluate for discitis-osteomyelitis. 4. Trace residual left pleural fluid and left basilar atelectasis. 5. Moderate splenomegaly. 05/15/2017 Status post percutaneous drainage of left psoas abscess and left lower quadrantabdominal wall abscess. There is interval resolution of the left lower quadrant abdominal wall abscess and interval reduction in size in the left psoas abscess Both percutaneous drains remain appropriately positioned withinthe target abscesses. No new intra-abdominal abscesses are present. The underlying cause of the abscesses is not identified on today's exam. Assessment: Adamaris Urena is a 61 y.o. male with no known past medical history, presented to outside hospital due to feeling fatigued, the pound weight loss and found having retroperitoneal abscess he underwent IR guided drainage on 04/27, retroperitoneal abscess culture grew E. Coli. He has been receiving Bactrim DS 2 tablets twice daily with the repeat CAT scan show a new development of left psoas abscess. Arecurrent abscess formation is rather an issue source control rather than failing antibiotic regimen. Due to history of weight loss, changing in bowel habits raised a concern that GI tract is a potential source of recurrent infections for example, colon cancer all small polyp rupture that led to abscess formations. We will suggest colonoscopy as an outpatient setting. Another, source for E. coli intra-abdominal infection is from urinary tract he denies history of urinary symptoms and he is currently on broad-spectrum antibiotics obtaining urinalysis now with not be very helpful. In regards to appropriate antibiotics, we will try to target our antibiotics from recent culture data which is E. Coli. Fortunately these are simmons resistant sensitive strain, we suggest quinolones as isefficacy is as good as IV. We also suggest adding metronidazole for anaerobic coverage. We suggest ciprofloxacin 500 mg p.o. 2 times daily and metronidazole 500 mg p.o. 3 times daily durations of therapy is at least 4 weeks. He will need a repeat imaging study as well as drain study in about 4 weeks. Recommendations: 1. Discontinue cefepime and metronidazole IV 2. Start ciprofloxacin 500 mg p.o. twice daily and metronidazole 500 mg p.o. 3 times daily. Durations of therapy is at least 4 weeks. 3. Please obtain CT abdomen pelvis and drain study in about 4 weeks. 4. We will set up an appointment with ID clinic with in 4 weeks. 5. Highly recommend colonoscopy looking for GI source. This patient was seen and discussed with ID attending Dr. Quezada. Recommendations discussed withprimary treating team. ID will sign off. Please page [phone] if further consultation required. Tish You MD Infectious Disease Fellow Pager [phone] 05/15/2017 10:25 PM Associated attestation - Price Quezada MD - 05/16/2017 9:36 AM EST Attestation by Price Quezada MD MPH (ID Attending):??I have seen and examined this patient.I have reviewed and agree with the history, findings, assessment, and plan of care as documented in Dr. You's note. The assessment and plan were formulated in discussion with me. In short, Mr. Samuel ledbetter is a 61y/o M with no significant past medical history who was recently admitted 04/27/16-05/04/17or management of a large left retroperitoneal fluid collection inseparable from the left iliopsoas muscle. In reviewing the original images with radiology, this abscess abutted the left kidney, but itdid not seem to originate from the kidney. On questioning today, he denied any dysuria or flank painto suggest a preceding pyelonephritis. His most significant symptoms included a 50 lbs weight loss and some diarrhea. In terms of other contiguous abdominal organs as potential sources, Mr. Urena has never had a colonoscopy, but he also states that he does not want one. In discussion with radiology, there were no obvious masses in the colon, and [...] after an CT for interval follow-up revealed interval enlargement of the previous identified left retroperitoneal abscess, along with identification of a new 23cmleft paracolic gutter abscess. This CT also showed new air within the L2-L3 intervertebral disc raising a concern for discitis-osteomyelitis, but a MRI on 05/13/17 showed no findings to suggest discitis-osteomyelitis. A new CT-guided drain was placed on 05/10/17, with cultures from this drain remaining negative. We reviewed the abdominal CT done on 05/15/17 which showed interval resolution of the LLQ abdominal wall abscess and interval reduction in the size of the left psoas abscess. In speaking with radiology, it ispossible that these two collections are connected and were drained by the second drain, but it is also possible that Mr. Urena was not adequately flushing his first drain at home. This is something that he denies. We have recommended 4 weeks of treatment with ciprofloxacin plus metronidazole with ID follow-up prior to stopping antibiotics. He should have a drain study prior to drain removal to evaluate for communication with a potential source of bacterial seeding. We will also relay to his PCP that he should have a colonoscopy. Plan of Care - Reyna Méndez RN - 05/15/2017 3:54 PM EST Problem: Patient Care Overview Goal: Plan of Care Review Outcome: Ongoing (Interventions Implemented as Appropriate) 05/15/17 0340 05/15/17 1610 Coping/Psychosocial Plan Of Care Reviewed With -- patient Plan of Care Review Progress progress toward functional goals as expected -- OUTCOME EVALUATION NOTE: OUTCOME SUMMARY: Pt denies chest pain, SOB, nausea, and n/t this shift. Pt reports a constant lower back pain, PRN meds offered but refused. Pt OOB independetly to the bathroom. Pt is voiding in the toilet, educated onvoiding in the urinal to monitor intake and output - pt refused. Pt otherwise cooperative this shift. Pt resting comfortably in bed at this time. Call eaton within reach. VSS. Will continue to monitor. PLAN MOVING FORWARD: Pain management, monitor IR drain output, d/c planning INDIVIDUALIZED FALL PREVENTION INTERVENTIONS: Patient-specific fall risk factors per assessment: [current deficits]: Hospital environment, pain Assistance [level of assistance required for transfers and ambulation]: Independent Supervision [direct monitoring required during toileting and ADLs]: Independent Surveillance [continuous indirect monitoring]: Masimo, hourly rounding Patient-specific fall prevention interventions for sensory deficits provided, if applicable: [X] N/A Plan of Care - Dinorah Hutson RN - 05/15/2017 3:43 AM EST Problem: Patient Care Overview Goal: Plan of Care Review Outcome: Ongoing (Interventions Implemented as Appropriate) 05/15/17 0340 Coping/Psychosocial Plan Of Care Reviewed With patient Plan of Care Review Progress progress toward functional goals as expected OUTCOME EVALUATION NOTE: OUTCOME SUMMARY: Patient progressing towards d/c goals appropriately at this time. Patients pain adequately controlled, see MAR for medications given. Pt arrived to floor at 2145, see doc flowsheets for full assessment. Pt reports chronic pain in back but denies need for PRN pain medication. IR drain dressings c/d/i, putting out creamy/serosanguineous drainage. Will continue to monitor and help patient reach d/c goals. PLAN MOVING FORWARD: Pain control Mobilize Monitor drain output D/c planning INDIVIDUALIZED FALL PREVENTION: Patient is currently a medium risk to Fall. Patient educated on bed/chair alarm, demonstrates proper use of call eaton and verbalizes understanding of fall preventions implemented. Patient-specific fall risk factors per assessment: [current deficits]: Pain, Medications, Hospital Environment. Assistance [level of assistance required for transfers and ambulation]: Standby assist Supervision [direct monitoring required during toileting and ADLs]: Eyes-on assistance with ADL's Surveillance [continuous indirect monitoring]: Kelseyimo, Purposeful Rounding, Bedside Report Patient-specific fall prevention interventions for sensory deficits provided, if applicable: [X] N/A CPG GOAL OUTCOME EVALUATION: Goal: Fall Prevention-Safe Patient Handling Outcome: Ongoing (Interventions Implemented as Appropriate) 05/14/17 0745 05/14/172229 Activity Activity Type -- activity adjusted per tolerance Activity Assistance Provided independent -- Assistive Device Utilized none -- Daily Care Interventions Self-Care Promotion -- independence encouraged;BADL personal objects within reach;BADL personal routines maintained;safe use of adaptive equipment encouraged Gonzales Fall Risk History of Falling -- 0 Secondary Diagnosis -- 15 Ambulatory Aids -- 0 Intravenous Therapy/Heparin/Saline Lock -- 20 Gait/Transferring -- 0 Mental Status -- 0 Score -- 35 OTHER Gonzales Fall Risk -- Med Restraint Interventions Safety Promotion/Fall Prevention -- activity supervised;nonskid shoes/slippers when out of bed;safety round/check completed;fall prevention program maintained Positioning Body Position -- supine, head elevated Goal: Infection Control Outcome: Ongoing (Interventions Implemented as Appropriate) 05/14/172229 Coping Strategies Supportive Measures active listening utilized;counseling provided;decision- making supported Safety Interventions Isolation Precautions standard precautions maintained Infection Prevention barrier precautions utilized;rest/sleep promoted Goal: Discharge Needs Assessment Outcome: Ongoing (Interventions Implemented as Appropriate) 05/13/17 1510 05/14/17 0336 Discharge Needs Assessment Concerns To Be Addressed no discharge needs identified -- Readmission Within The Last 30 Days no previous admission in last 30 days -- Living Environment Transportation Available -- family or friend will provide Goal: Interdisciplinary Rounds/Family Conf Outcome: Ongoing (Interventions Implemented as Appropriate) 05/15/17 0340 Interdisciplinary Rounds/Family Conf Participants nursing;patient Problem: Infection, Risk/Actual (Adult) Goal: Infection Prevention/Resolution Patient will demonstrate the desired outcomes by discharge/transition of care. Outcome: Ongoing (Interventions Implemented as Appropriate) 05/15/17 0340 Infection, Risk/Actual (Adult) Infection Prevention/Resolution making progress toward outcome Problem: Pain, Chronic (Adult) Goal: Acceptable Pain Control/Comfort Level Patient will demonstrate the desired outcomes by discharge/transition of care. Outcome: Ongoing (Interventions Implemented as Appropriate) 05/15/17 0340 Pain, Chronic (Adult) Acceptable Pain Control/Comfort Level making progress toward outcome Plan of Care - Gilma Hutchinson RN - 05/14/2017 4:17 PM EST Problem: Patient Care Overview Goal: Plan of Care Review Outcome: Ongoing (Interventions Implemented as Appropriate) 05/14/17 1549 Coping/Psychosocial Plan Of Care Reviewed With patient Plan of Care Review Progress progress toward functional goals as expected OUTCOME EVALUATION NOTE: OUTCOME SUMMARY: Pt reporting pain 3/10 in back, stating chronic pain, declined interventions for pain. Pt to upper GI study this morning, when returned pt stating he was nauseous and requested toast, pt stating he wasfeeling better later. Pt OOB to bathroom independently, declined ambulation in the black. Pt continues to decline IS and SCD's. IR drains flushed per MD order. Otherwise all needs met, will continue to monitor. PLAN MOVING FORWARD: Monitor pain, encourage OOB and ambulation, continue free water restriction, INDIVIDUALIZED FALL PREVENTION INTERVENTIONS: Medium fall risk Patient-specific fall risk factors per assessment: [current deficits]: 61 yo with retroperitoneal abscess with 2 IR drains, PIV Assistance [level of assistance required for transfers and ambulation]: independent Supervision [direct monitoring required during toileting and ADLs]: none Surveillance [continuous indirect monitoring]: Nurse knowledge exchange, purposeful rounding, environmental modifications (waste basket is out of the path and the IV tubing and cords are free from the floor), fall reduction program in place, lighting adjusted for task, bed in low position, wheels guy d, side rails up (x2), nonskid socks worn OOB, no restraints, call light is within reach at all times Patient-specific fall prevention interventions for sensory deficits provided, if applicable: [X] N/A CPG GOAL OUTCOME EVALUATION: Goal: Individualization & Mutuality Outcome: Ongoing (Interventions Implemented as Appropriate) 05/14/17 1549 Individualization Patient Specific Interventions IR drains flushed Goal: Fall Prevention-Safe Patient Handling Outcome: Ongoing (Interventions Implemented as Appropriate) 05/14/17 0745 Activity Activity Type activity adjusted per tolerance;activity encouraged Activity Assistance Provided independent Assistive Device Utilized none Daily Care Interventions Self-Care Promotion independence encouraged;BADL personal objects within reach Gonzales Fall Risk History of Falling 0 Secondary Diagnosis 15 Ambulatory Aids 0 Intravenous Therapy/Heparin/Saline Lock 20 Gait/Transferring 0 Mental Status 0 Score 35 OTHER Gonzales Fall Risk Med Restraint Interventions Safety Promotion/Fall Prevention fall prevention program maintained;nonskid shoes/slippers when out of bed Positioning Body Position independent Goal: Infection Control Outcome: Ongoing (Interventions Implemented as Appropriate) 05/14/17 0745 Coping Strategies Supportive Measures active listening utilized;decision-making supported;goal setting facilitated;positive reinforcement provided;problem solving facilitated;self-care encouraged;relaxation techniques promoted;verbalization of feelings encouraged Safety Interventions Isolation Precautions standard precautions maintained Infection Prevention environmental surveillance performed;rest/sleep promoted Problem: Infection, Risk/Actual (Adult) Goal: Infection Prevention/Resolution Patient will demonstrate the desired outcomes by discharge/transition of care. Outcome: Ongoing (Interventions Implemented as Appropriate) 05/14/17 1549 Infection, Risk/Actual (Adult) Infection Prevention/Resolution making progress toward outcome Problem: Pain, Chronic (Adult) Goal: Acceptable Pain Control/Comfort Level Patient will demonstrate the desired outcomes by discharge/transition of care. Outcome: Ongoing (Interventions Implemented as Appropriate) 05/14/17 1549 Pain, Chronic (Adult) Acceptable Pain Control/Comfort Level making progress toward outcome Plan of Care - Vangie Delgado RN - 05/14/2017 4:12 AM EST Problem: Patient Care Overview Goal: Plan of Care Review Outcome: Ongoing (Interventions Implemented as Appropriate) 05/14/17 0336 Coping/Psychosocial Plan Of Care Reviewed With patient Plan of Care Review Progress progress toward functional goals as expected OUTCOME EVALUATION NOTE: OUTCOME SUMMARY: Adamaris slept overnight. His pain was 3/10, denied need for PRN tramadol. Per Adamaris, this is his day to day pain. NPO at midnight. No c/o nausea. IR drains flushed per orders. Independent in room. K+ 4.6 PLAN MOVING FORWARD: Upper GI swallow series. Flush IR drains every shift. Encourage independence and ambulation. INDIVIDUALIZED FALL PREVENTION INTERVENTIONS: Medium fall risk Patient-specific fall risk factors per assessment: [current deficits]: Patient has 2 or more active diagnoses, IR drains, and pain. Assistance [level of assistance required for transfers and ambulation]: Independent Supervision [direct monitoring required during toileting and ADLs]: Independent Surveillance [continuous indirect monitoring]: Hourly rounding, observation by staff, NKE at bedside. Urinal at bedside, environmental modifications (reduce clutter, lighting adjusted for safety, IV tubing and cords are free from the floor), nonskid shoes/slippers when out of bed, bed in low position,upper position siderails raised x2, wheels locked, call light in reach, ID bands on Patient-specific fall prevention interventions for sensory deficits provided, if applicable: N/A CPG GOAL OUTCOME EVALUATION: Goal: Individualization & Mutuality Outcome: Ongoing (Interventions Implemented as Appropriate) 05/14/17335 Individualization Patient Specific Interventions Flush IR drains Goal: Fall Prevention-Safe Patient Handling Outcome: Ongoing (Interventions Implemented as Appropriate) 05/13/17212205/14/17335 Activity Activity Type activity encouraged;activity adjusted per tolerance -- Activity Assistance Provided independent -- Assistive Device Utilized none -- Daily Care Interventions Self-Care Promotion -- independence encouraged;BADL personal objects within reach Gonzales Fall Risk History of Falling 0 -- Secondary Diagnosis 15 -- Ambulatory Aids 0 -- Intravenous Therapy/Heparin/Saline Lock 20 -- Gait/Transferring 0 -- Mental Status 0 -- Score 35 -- OTHER Gonzales Fall Risk Med -- Restraint Interventions Safety Promotion/Fall Prevention activity supervised;nonskid shoes/slippers when out of bed;safety round/check completed -- Positioning Body Position independent -- Goal: Infection Control Outcome: Ongoing (Interventions Implemented as Appropriate) 05/13/172122 Coping Strategies Supportive Measures active listening utilized;self-care encouraged Safety Interventions Isolation Precautions standard precautions maintained Infection Prevention rest/sleep promoted Goal: Discharge Needs Assessment Outcome: Ongoing (Interventions Implemented as Appropriate) 05/14/17335 Living Environment Transportation Available family or friend will provide Problem: Infection, Risk/Actual (Adult) Goal: Infection Prevention/Resolution Patient will demonstrate the desired outcomes by discharge/transition of care. 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 Outcome: Ongoing (Interventions Implemented as Appropriate) 05/14/17 0336 Pain, Chronic (Adult) Acceptable Pain Control/Comfort Level making progress toward outcome Plan of Care - Rafi Lama RN - 05/13/2017 3:23 PM EST Problem: Patient Care Overview Goal: Plan of Care Review Outcome: Ongoing (Interventions Implemented as Appropriate) 05/13/17 1511 Coping/Psychosocial Plan Of Care Reviewed With patient Plan of Care Review Progress progress toward functional goals as expected OUTCOME EVALUATION NOTE: OUTCOME SUMMARY: VSS through shift. Pain 2-3/10, baseline back and hip pain, and new R ear pain, team aware. Adamaris has a Tramadol order but declined pain meds. 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 Adamaris should be NPO at 0000 for upper GI series tomorrow (05/14). Tolerating regular diet well, eating 100% plus snacks. Free water restriction maintained. BMx2 today. Last K=4.6. LATOYA#2 putting out smaller amounts of purulent, creamy fluid. Flushed per orders. Refused ambulation, masimo, SCD's, and incentive spirometer. Releases signed. PLAN MOVING FORWARD: Monitor and manage pain. Monitor labs. MRI later today. INDIVIDUALIZED FALL PREVENTION INTERVENTIONS: Medium fall risk Patient-specific fall risk factors per assessment: [current deficits]: IV access, drains/devices Assistance [level of assistance required for transfers and ambulation]: Independent (sometimes uses cane) Supervision [direct monitoring required during toileting and ADLs]: independent Surveillance [continuous indirect monitoring]: NKE at bedside, purposeful rounding Patient-specific fall prevention interventions for sensory deficits provided, if applicable: Obstacles cleared from pathway ,lighting adjusted per task CPG GOAL OUTCOME EVALUATION: Initial Assessments - Suki Arias RN - 05/13/2017 12:06 PM EST Office of Care Management Initial Assessment Suki Arias RN reviewed record and discussed patient with Care Team. Source of Information: Patient and chart review. Introduced self/reviewed role; services accepted. Reason for Hospitalization: Reason for Admission as Stated by Patient: My drain isn't working. ID: Adamaris Urena is a 61 y.o. male s/p with a pertinent PMH of recent admission to [facility] for retroperitoneal abscess unknown origin s/p IR drain on 04/27 who presents for interval CT scan and follow-up. Past Medical History: Diagnosis Date ??? HTN (hypertension) ??? Obesity Hospitalizations Within the Past 30 Days: yes; 04/27 for abdominal drain placement. Anticipated Length Of Stay (If known): Expected Length of Hospitalization: 3 days Current Decision-Making Capacity: Full capacity. Advance Care Planning: Does not have. Pt verbally assigned his daughter Agustin Urena as his POA. Current Coping/Education/Information Needs: Pt somewhat irritated that he needs to be an In-patient for his care. Support provided. Current Functional Ability: Out of bed ad julian. Functional Status Prior to Admission: Independent. Home Environment: Pt said he is going to be discharged to his daughter Agustin's house ([facility]) which has three levels. Pt stays in a bedroom on the basement level with six stairs down. Agustin has three dogs and children. Pt normally lives with his sister Elizabeth Urena in [place], [place]. Social & Family Supports/Community Resources: Pt well supported by daughter Agustin. Behavioral Health History: Denied. Substance Use/Abuse: Denied Other Pertinent/Service Specific Information: na Health/Prescription Coverage: Primary Insurance: Pt applied for and said he qualified for [employer]. Pt has not signed the final forms though. Pt mentioned that he has [employer] coverage for accidents. Pt also wondered if his abd. Abscess is related to my work. 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 I suggested he talk with HR at his work place. Secondary Insurance: N/A Prescription Coverage: No Preferred Pharmacy: Did not say. Primary Care Provider: Odalys Laird MD [phone] Patient/Caregiver Goals of Treatment: Continue with adequate pain control. Complete UGI Series and MRI of spine to rule out potential sources of retroperitoneal fluid. Potential Needs for Transition of Care: Rehab/SNF: na Home Health: Offered, discussed and pt declined saying that he and daughter can manage care of J/P drains. DME: na Dialysis: na Community Resources: na Transportation: via car with family member. Anticipated Barriers to Discharge/Special Considerations: Pt's refusal of potential need for VNA services. Plan: Per MD progress note: Plan for continued IV antibiotics and IR drain management. UGI and spine MRI to r/o potential sources. Would ideally perform these today and repeat abdominal CT tomorrow to eval progression of collections. Will likely need operative intervention later this week pending the above. A member of the Care Management team will continue to monitor progress, follow for continuity of care and assist with transition of care planning. Suki Arias RN, BSN [facility] Pager # [phone] [email or web address] Plan of Care - Rafi Steven RN - 05/13/2017 3:16 AM EST OUTCOME EVALUATION NOTE: OUTCOME SUMMARY: No acute events this shift. Reports aching pain at back/hips, no change from his baseline. K+ 4.6 this am. Refused SCDs and masimo. LATOYA#2 purulent/creamy drainage w/ 105 ml output this shift. Adequate UOP (see flow sheets). PLAN MOVING FORWARD: IV abx Flust LATOYA BID 500ml/shift free water restriction Continue to monitor pain, labs and 1&O. Notify MDs as necessary for pertinent pt condition changes. INDIVIDUALIZED FALL PREVENTION INTERVENTIONS: Patient-specific fall risk factors per assessment: [current deficits]: IV pumps, drains, unfamiliar environment Assistance [level of assistance required for transfers and ambulation]: Independent Supervision [direct monitoring required during toileting and ADLs]: [place] encouraged, pt using call light appropriately Surveillance [continuous indirect monitoring]: Call light w/in reach, door open throughout shift, room near nsg station. Patient-specific fall prevention interventions for sensory deficits provided, if applicable: n/a CPG GOAL OUTCOME EVALUATION: Problem: Patient Care Overview Goal: Plan of Care Review Outcome: Ongoing (Interventions Implemented as Appropriate) 05/12/17 1227 05/12/172007 Coping/Psychosocial Plan Of Care Reviewed With -- patient Plan of Care Review Progress progress toward functional goals as expected -- Goal: Fall Prevention-Safe Patient Handling Outcome: Ongoing (Interventions Implemented as Appropriate) 05/12/17 0735 05/12/172007 Activity Activity Type -- activity adjusted per tolerance Activity Assistance Provided -- independent Assistive Device Utilized none -- Gonzales Fall Risk History of Falling -- 0 Secondary Diagnosis -- 15 Ambulatory Aids -- 0 Intravenous Therapy/Heparin/Saline Lock -- 20 Gait/Transferring -- 0 Mental Status -- 0 Score -- 35 OTHER Gonzales Fall Risk -- Med Restraint Interventions Safety Promotion/Fall Prevention -- safety round/check completed;nonskid shoes/slippers when out of bed;activity supervised Positioning Body Position -- independent;supine Goal: Infection Control Outcome: Ongoing (Interventions Implemented as Appropriate) 05/12/17200705/13/17312 Coping Strategies Supportive Measures -- decision-making supported;relaxation techniques promoted;self-responsibility promoted;verbalization of feelings encouraged;active listening utilized;problem solving facilitated;self-reflection promoted;goal setting facilitated Safety Interventions Isolation Precautions standard precautions maintained -- Infection Prevention rest/sleep promoted;personal protective equipment utilized;environmental surveillance performed -- Problem: Infection, Risk/Actual (Adult) Goal: Infection Prevention/Resolution Patient will demonstrate the desired outcomes by discharge/transition of care. Outcome: Ongoing (Interventions Implemented as Appropriate) 05/13/17312 Infection, Risk/Actual (Adult) Infection Prevention/Resolution making progress toward outcome Plan of Care - Rafi Lama RN - 05/12/2017 12:32 PM EST Problem: Patient Care Overview Goal: Plan of Care Review Outcome: Ongoing (Interventions Implemented as Appropriate) 05/12/17 1227 Coping/Psychosocial Plan Of Care Reviewed With patient Plan of Care Review Progress progress toward functional goals as expected OUTCOME EVALUATION NOTE: OUTCOME SUMMARY: VSS through shift. Pain (2/10) in lower back, radiating to hips (baseline) for which he declined medication. New reportof R ear pain (3/10), MD notified and to bedside. Edema in BLE has resolved. Tolerating regular diet well. BM this morning. 500 mL free water restriction maintained. LATOYA #2 putting out purulent drainage, volume decreasing. Flushed per order. SCD's refused, masimo refused, IS refused, papers signed. Xray today. 1630: K=4.6 PLAN MOVING FORWARD: Monitor labs. Flush LATOYA BID. Monitor and manage pain. INDIVIDUALIZED FALL PREVENTION INTERVENTIONS: Medium fall risk Patient-specific fall risk factors per assessment: [current deficits]: IV access, drains/devices, acute pain Assistance [level of assistance required for transfers and ambulation]: independent Supervision [direct monitoring required during toileting and ADLs]: independent Surveillance [continuous indirect monitoring]: NKE at bedside, purposeful rounding Patient-specific fall prevention interventions for sensory deficits provided, if applicable: Obstacles cleared from pathway; lighting adjusted per task CPG GOAL OUTCOME EVALUATION: Plan of Care - Tanner Painter RN - 05/12/2017 12:35 AM EST Problem: Patient Care Overview Goal: Plan of Care Review Outcome: Ongoing (Interventions Implemented as Appropriate) 05/11/17 1452 05/11/172008 Coping/Psychosocial Plan Of Care Reviewed With -- patient Plan of Care Review Progress progress toward functional goals as expected -- OUTCOME SUMMARY: Pain increased in low back to 3.5/10 this shift, pt not taking any pain meds. Refusing IS, SCDs, ambulation. Form signed by patient for refusal to wear SCDs. LATOYA drains flushed per orders. 500mL/shift free water restriction maintained, patient compliant. Potassium back to normal range of 4.8, then increased to 5.1. 50% dextrose in 50mL given once, followed by insulin. Blood sugar checks done after perorders. Antibiotics given throughout shift. O2 dipped at times while patient was sleeping, but refused oxygen, stating he will wake up. PLAN MOVING FORWARD: Frequent drain emptying. IV antibx admin as ordered. INDIVIDUALIZED FALL PREVENTION INTERVENTIONS: Medium fall risk Patient-specific fall risk factors per assessment: [current deficits]: IV access, drains/devices, assistive device, IV access Assistance [level of assistance required for transfers and ambulation]: Independent to BR Supervision [direct monitoring required during toileting and ADLs]: Eyes on Surveillance [continuous indirect monitoring]: NKE at bedside, purposeful rounding Patient-specific fall prevention interventions for sensory deficits provided, if applicable: Obstacles cleared from pathway, lighting adjusted per task Plan of Care - aMriama Edwards RN - 05/11/2017 3:00 PM EST Problem: Patient Care Overview Goal: Plan of Care Review Outcome: Ongoing (Interventions Implemented as Appropriate) 05/11/17 1452 Coping/Psychosocial Plan Of Care Reviewed With patient Plan of Care Review Progress progress toward functional goals as expected OUTCOME EVALUATION NOTE: OUTCOME SUMMARY: VSS through shift. 2/10 chronic lower back pain. Denies need for PRN pain medication. K=5.1 @ 0950, repeated 1550, then was 5.4 . Kayexolate ordered at 1000 and administered. (BM x1). IVdextrose and insulin ordered at 1700. 500 mL/shift free water restriction. LATOYA #2 putting out large amounts of purulent drainage. Drains flushed per order. Tolerating regular diet well. Urinating adequate amounts of clear yellow urine. Incentive spirometry reviewed but refused to comply. SCD's refused. Ambulation in black refused. PLAN MOVING FORWARD: Encourage ambulation. Encourage pulmonary hygiene. Frequent drain emptying. IV antibx admin as ordered. INDIVIDUALIZED FALL PREVENTION INTERVENTIONS: Medium fall risk Patient-specific fall risk factors per assessment: [current deficits]: IV access, drains/devices, assistive device, IV access Assistance [level of assistance required for transfers and ambulation]: Independent to BR Supervision [direct monitoring required during toileting and ADLs]: Eyes on Surveillance [continuous indirect monitoring]: NKE at bedside, purposeful rounding Patient-specific fall prevention interventions for sensory deficits provided, if applicable: Obstacles cleared from pathway, lighting adjusted per task CPG GOAL OUTCOME EVALUATION: Goal: Individualization & Mutuality Outcome: Ongoing (Interventions Implemented as Appropriate) 05/11/17 1452 Individualization Patient Specific Interventions Flush LATOYA drain and ensure it is not blocked Goal: Fall Prevention-Safe Patient Handling Outcome: Ongoing (Interventions Implemented as Appropriate) 05/11/17 0759 05/11/17 0815 Activity Activity Type ambulated to bathroom -- Activity Assistance Provided independent -- Assistive Device Utilized none -- Gonzales Fall Risk History of Falling -- 0 Secondary Diagnosis -- 15 Ambulatory Aids -- 0 Intravenous Therapy/Heparin/Saline Lock -- 20 Gait/Transferring -- 0 Mental Status -- 0 Score -- 35 OTHER Gonzales Fall Risk -- Med Restraint Interventions Safety Promotion/Fall Prevention -- nonskid shoes/slippers when out of bed;fall prevention program maintained Positioning Body Position supine -- Goal: Infection Control 05/11/179 05/11/17 0815 Coping Strategies Supportive Measures -- active listening utilized;self-care encouraged;verbalization of feelings encouraged Safety Interventions Isolation Precautions standard precautions maintained -- Goal: Discharge Needs Assessment Outcome: Ongoing (Interventions Implemented as Appropriate) 05/11/17 1152 Living Environment Transportation Available family or friend will provide Problem: Infection, Risk/Actual (Adult) Goal: Identify Related Risk Factors and Signs and Symptoms Related risk factors and signs and symptoms are identified upon initiation of Human Response Clinical Practice Guideline (CPG) Outcome: Outcome (s) achieved Date Met: 05/11/17 05/11/17 145 Infection, Risk/Actual Infection, Risk/Actual: Related Risk Factors exposure to microbes Signs and Symptoms (Infection, Risk/Actual) drainage Goal: Infection Prevention/Resolution Patient will demonstrate the desired outcomes by discharge/transition of care. Outcome: Ongoing (Interventions Implemented as Appropriate) 05/11/17 1452 Infection, Risk/Actual (Adult) Infection Prevention/Resolution making progress toward outcome Plan of Care - Rafi Lama RN - 05/11/2017 12:00 AM EST Problem: Patient Care Overview Goal: Plan of Care Review Outcome: Ongoing (Interventions Implemented as Appropriate) 05/10/17 6317 Coping/Psychosocial Plan Of Care Reviewed With patient Plan of Care Review Progress improving OUTCOME EVALUATION NOTE: OUTCOME SUMMARY: VSS through shift. Denies pain. I just feel so much better now that I have that drain in. B at 1941. K=5.6 at 0057. IV D5, IV insulin, IV calcium gluconate, 500 mL/day free water restriction ([id number]), Q6 BMP's starting at 0730 on 05/11, and EKG ordered. BG=87 at 0400 check, BG=90 at 0600 check. Last check due at 0800. LATOYA #2 putting out large amounts of purulent drainage. Drains flushed per order. Tolerating regular diet well. Urinating adequate amounts of clear yellow urine. Incentive spirometry reviewed. SCD's on. PLAN MOVING FORWARD: Encourage ambulation. Encourage pulmonary hygiene. Frequent drain emptying. INDIVIDUALIZED FALL PREVENTION INTERVENTIONS: High fall risk Patient-specific fall risk factors per assessment: [current deficits]: IV access, drains/devices, assistive device, IV access Assistance [level of assistance required for transfers and ambulation]: Stand by, sometimes cane or FWW Supervision [direct monitoring required during toileting and ADLs]: Eyes on Surveillance [continuous indirect monitoring]: NKE at bedside, purposeful rounding Patient-specific fall prevention interventions for sensory deficits provided, if applicable: Obstacles cleared from pathway, lighting adjusted per task CPG GOAL OUTCOME EVALUATION: documented in this encounter Plan of Treatment Not on filedocumented as of this encounter Procedures Procedure Name Priority Date/Time Associated Diagnosis Comme nts HEMOGRAM Routine 05/16/2017 3:51 Results for this AM EST procedure are i n the results section. DIFFERENTIAL, AUTOMATED Routine 05/16/2017 3:51 R esults for this AM EST procedure are i n the results section. CBC (WITH DIFF) Routine 05/16/2017 3:51 AM EST BASIC METABOLIC PANEL Routine 05/16/2017 3:51 Res ults for this (NON-FASTING) AM EST procedure are in the results section. CT ABDOMEN AND PELVIS W Routine 05/15/2017 3:08 R esults for this CONTRAST PM EST procedure are i n the results section. HEMOGRAM Routine 05/15/2017 3:30 Results for this AM EST procedure are i n the results section. DIFFERENTIAL, AUTOMATED Routine 05/15/2017 3:30 R esults for this AM EST procedure are i n the results section. CBC (WITH DIFF) Routine 05/15/2017 3:30 AM EST BASIC METABOLIC PANEL Routine 05/15/2017 3:30 Res ults for this (NON-FASTING) AM EST procedure are in the results section. XR FLUORO UPPER GI Routine 05/14/2017 9:24 Result s for this SINGLE CONTRAST WO KUB AM EST proce dure are in the results section. BASIC METABOLIC PANEL Routine 05/14/2017 2:06 Res ults for this (NON-FASTING) AM EST procedure are in the results section. MRI LUMBAR SPINE Routine 05/13/2017 7:28 Results for this WITH/WO CONTRAST PM EST procedure a re in the results section. XR PRE MRI ORBITS Routine 05/13/2017 10:16 Result s for this AM EST procedure are i n the results section. HEMOGRAM Routine 05/13/2017 1:48 Results for this AM EST procedure are i n the results section. DIFFERENTIAL, AUTOMATED Routine 05/13/2017 1:48 R esults for this AM EST procedure are i n the results section. CBC (WITH DIFF) Routine 05/13/2017 1:48 AM EST BASIC METABOLIC PANEL Routine 05/13/2017 1:48 Res ults for this (NON-FASTING) AM EST procedure are in the results section. BASIC METABOLIC PANEL Routine 05/12/2017 2:10 Res ults for this (NON-FASTING) PM EST procedure are in the results section. XR ABDOMEN FLAT AND Routine 05/12/2017 1:53 Resul ts for this UPRIGHT PM EST procedure are i n the results section. POCT GLUCOSE Routine 05/12/2017 8:16 Results for this AM EST procedure are i n the results section. POCT GLUCOSE Routine 05/12/2017 6:15 Results for this AM EST procedure are i n the results section. POCT GLUCOSE Routine 05/12/2017 4:20 Results for this AM EST procedure are i n the results section. HEMOGRAM Routine 05/12/2017 1:43 Results for this AM EST procedure are i n the results section. DIFFERENTIAL, AUTOMATED Routine 05/12/2017 1:43 R esults for this AM EST procedure are i n the results section. CBC (WITH DIFF) Routine 05/12/2017 1:43 AM EST BASIC METABOLIC PANEL Routine 05/12/2017 1:43 Res ults for this (NON-FASTING) AM EST procedure are in the results section. BASIC METABOLIC PANEL Routine 05/11/2017 9:37 Res ults for this (NON-FASTING) PM EST procedure are in the results section. EKG 12-LEAD STAT 05/11/2017 5:23 Hyperkalemia Results for this PM EST procedure are i n the results section. BASIC METABOLIC PANEL Routine 05/11/2017 3:34 Res ults for this (NON-FASTING) PM EST procedure are in the results section. BASIC METABOLIC PANEL Routine 05/11/2017 9:49 Res ults for this (NON-FASTING) AM EST procedure are in the results section. POCT GLUCOSE Routine 05/11/2017 7:58 Results for this AM EST procedure are i n the results section. POCT GLUCOSE Routine 05/11/2017 6:02 Results for this AM EST procedure are i n the results section. POCT GLUCOSE Routine 05/11/2017 3:59 Results for this AM EST procedure are i n the results section. EKG 12-LEAD STAT 05/11/2017 2:56 Hyperkalemia Results for this AM EST procedure are i n the results section. HEMOGRAM Routine 05/11/2017 12:57 Results for this AM EST procedure are i n the results section. DIFFERENTIAL, AUTOMATED Routine 05/11/2017 12:57 Results for this AM EST procedure are i n the results section. CBC (WITH DIFF) Routine 05/11/2017 12:57 AM EST BASIC METABOLIC PANEL Routine 05/11/2017 12:57 Re sults for this (NON-FASTING) AM EST procedure are in the results section. POCT GLUCOSE Routine 05/10/2017 7:41 Results for this PM EST procedure are i n the results section. BASIC METABOLIC PANEL Routine 05/10/2017 7:25 Res ults for this (NON-FASTING) PM EST procedure are in the results section. POCT GLUCOSE Routine 05/10/2017 6:35 Results for this PM EST procedure are i n the results section. EKG 12-LEAD Routine 05/10/2017 5:51 Hyperkalemia Results for this PM EST procedure are i n the results section. CT RETROPERITONEAL Routine 05/10/2017 4:34 Result s for this ABSCESS DRAIN PM EST procedure are in the results section. ANAEROBIC CULTURE Routine 05/10/2017 4:30 Results for this PM EST procedure are i n the results section. BODY FLUID CULTURE, Routine 05/10/2017 4:30 AEROBIC & ANAEROBIC PM EST BODY FLUID CULTURE, Routine 05/10/2017 4:30 Resul ts for this AEROBIC PM EST procedure are i n the [...] was administered. COMPARISON: Most recent comparison to [facility] 2017 FINDINGS: Lower chest: Linear atelectasis in [...] findings, Price tapia at 05/24/2017 4:52 PM Gilson Mcgee MD IMG CT ORDERABLES Differential, Automated (05/16/2017 3:51 AM EST) P athologist Signature Neutrophils % 51.2 % [facility] Neutr Abs (ANC) 3.31 1.70 - [facility] 6.10 [facility] x10(3)/[facility] LABORATORY Lymphocytes % 34.2 % [facility] Lymphocytes Abs 2.2 0.9 - 3.2 [facility] x10(3)/[facility] LABORATORY Monocytes % 9.8 % [facility] Monocyte Abs 0.6 0.3 - 0.9 [facility] x10(3)/[facility] LABORATORY Eosinophils % 3.3 % [facility] Eosinophils Abs 0.2 0.0 - 0.4 [facility] x10(3)/[facility] LABORATORY Basophils % 0.9 % [facility] Basophils Abs 0.1 0.0 - 0.1 [facility] x10(3)/[facility] LABORATORY Immature Gran % 0.60 % [facility] Comment: Immature granulocytes(IG's)percentage an d absolute count will include metamyelocytes, myelocytes, and promyelo cytes. Blood smears from CBCs yielding IG's will be scanned manually for concor dance. If this scan disagrees with the automated IG or if promyelocytes are not ed, a manual differential will be performed. [facility] Gran Abs 0.04 0.00 - 0.04 x10(3)/[facility] Specimen Anatomical Collection Method Collection Time Receive d Time (Source) Location / / Volume Laterality Blood specimen 05/16/2017 3:51 AM 018 4:25 (specimen) EST AM EST Resulting Agency Comment Spec In Lab Gilson Mcgee MD HEMATOLOGY ORDERABLES Performing Organization Address City/State/[place] [address] (ABNORMAL) Hemogram (05/16/2017 3:51 AM EST) Analysis Performed At Patho logist Time Signature WBC 6.5 4.0 - 9.5 [facility] x10(3)/[facility] LABORATORY RBC 3.56 (L) 4.58 - [facility] x10(6[facility] LABORATORY Hemoglobin 10.2 (L) 13.7 - [facility] 16.[facility] gm/dL [facility] Hematocrit 32.4 (L) 40.5 - [facility] 48.5 % [facility] MCV 91.0 82.9 - [facility]1 [facility] LABORATORY MCH 28.7 27.5 - [facility] RAJENDRA 32.1 pg [facility] MCHC 31.5 (L) 32.0 - [facility] 35.7 gm/dL [facility] Platelets 241 145 - 357 [facility] x10(3)/[facility] LABORATORY RDWSD 56.2 (H) 36.0 - [facility]0 [facility] LAB[facility]ORY RDWCV 17.7 (H) 11.4 - [facility] 13.8 % [facility] MPV 8.8 7.6 - 12.9 [facility] LABORATORY nRBC % Auto 0.0 % [facility] nRBC Abs Auto 0.000 0.000 [facility] x10(3)/[facility] LABORATORY Specimen Anatomical Collection Method Collection Time Receive d Time (Source) Location / / Volume Laterality Blood specimen 05/16/2017 3:51 AM 018 4:25 (specimen) EST AM EST Resulting Agency Comment Spec In Lab Gilson Mcgee MD HEMATOLOGY ORDERABLES Performing Organization Address City/State/[place] [address] (ABNORMAL) Basic Metabolic Panel (non-fasting) (05/16/2017 3:51 AM EST) P athologist Signature Glucose Lvl 102 65 - 199 [facility] mg/dL [facility] Comment: Diabetes: >=200 mg/dL plus symp toms BUN 14 10 - 20 mg/dL [facility] Creatinine 1.13 0.80 - 1.50 mg/dL [facility] Sodium 134 (L) 135 - 145 mmol/L [facility] Potassium 4.2 3.5 - 5.0 mmol/L [facility] Comment: Please note: ??Patients with WBC >100,00 0 may have falsely elevated Potassium levels. ??For accurate Potassium quantif ication in these patients send serum separator tube (gold top) for subsequent determinations. ??Contact the Clinical Chemistry Laboratory if there are any qu estions. Chloride 97 (L) 98 - 107 mmol/L [facility] CO2 22 22 - 31 mmol/L [facility] Anion Gap 15 5 - 15 mmol/L [facility] Calcium 9.2 8.5 - 10.5 mg/dL [facility] Estimated GFR >60 >=60 [facility] Comment: The reported eGFR should be multiplied b y 1.2 for patients. The MDRD is not an appropriate measure o f renal function for patients with body mass extremes or in patients with acute kidney failure. http://InsightETE/DHnkdep http://InsightETE/DHnkf Specimen Anatomical Collection Method Collection Time Receive d Time (Source) Location / / Volume Laterality Blood specimen 05/16/2017 3:51 AM 018 4:25 (specimen) EST AM EST Resulting Agency Comment Spec In Lab Gilson Mcgee MD CHEMISTRY ORDERABLES Performing Organization Address City/State/ZIP Code Phon e Number [place] [id number] CT Abdomen & Pelvis w Contrast (05/15/2017 3:08 PM EST) Anatomical Region Laterality Modality Abdomen, Pelvis Computed Tomography Specimen (Source) Anatomical Location Collection Method / Collectio n Time Received Time / Laterality Volume Impressions 05/15/2017 3:32 PM EST Status post percutaneous drainage of left psoas abscess and left lower quadrant abdominal wall abscess. There is interva l resolution of the left lower quadrant abdominal wall abscess and interval redu ction in size in the left psoas abscess as detailed above. Both percutaneous holly ins remain appropriately positioned within the target abscesses. No new intr a-abdominal abscesses are present. The underlying cause of the abscesses is not identified on today's exam. Narrative 05/15/2017 3:32 PM EST EXAMINATION: ??CT ABDOMEN AND PELVIS W CONTRAST CLINICAL HISTORY: ??P/w abdominal pressu re, retroperitoneal and abdominal abscesses, unknown cause, s/p IR drainag e, interval assessment of abscess pockets and potential cause TECHNIQUE: Helical CT of the abdomen and pelvis was performed following the intravenous administration of contrast. 120 cc of Omnipaque 350 was given. Oral contrast was administered. COMPARISON: ??CT chest, abdomen, pelvis on 05/10/[address]-guided drain on 05/10/2017 FINDINGS: Lower chest: There is a trace amount of atelectasis at the left base. Liver: Normal size and attenuation witho ut lesions. Bile ducts: Nondilated. Gallbladder: No calcified gallstones. No rmal caliber wall. Pancreas: Normal attenuation without gato jany dilatation. Spleen: Normal. Adrenals: The bilateral adrenal glands a re normal in size. There is some stranding within the fat adjacent to the left adrenal gland from the psoas abscess. Kidneys: Prompt symmetric enhancement. B ilateral symmetric course nodular cortical irregularities could be due to lobulation versus history of infections. No hydronephrosis present on today's exam. No areas of abnormal perfusion to suggest infarct or nephroni a. Vasculature: No aneurysm. Lymph Nodes: Prominent mary hepatis and aortocaval lymph nodes are likely attributable to the left retroperitoneal infection. Bowel: Oral contrast reaches the rectum. No dilated small or large bowel. There is diverticulosis of the descending and sigmoid colon without evidence of diverticulitis. No extravasation of cont rast is present. The appendix and terminal ileum are normal. Retroperitoneum, Peritoneum and mesenter y: No intraperitoneal free fluid or free air. As on previous studies there is a l oculated abscess along the left iliopsoas and left lateral abdominal obl ique musculature. Both collections show interval decrease in size with near reso lution of the left lower quadrant abdominal wall abscess. The two percutan eous drains are appropriately positioned within the collections. There does remai n some fluid within the left psoas abscess with the collection now measurin g approximately 3.5 x 7.2 x 17 cm (previously 7 x 11 x 20 cm on 05/10/2017 by my measurement). No new undrained retroperitoneal abscesses are identified . Abdominal wall: As reported above, there is near resolution of the left lower quadrant abdominal wall abscess compared to the 05/10/2017 CT with almost no appreciable residual fluid collection. Urinary Bladder: Normal. Reproductive organs: Normal. Osseous structures: No suspicious lesion s. Procedure Note Nguyễn Brenner MD - 05/15/2017Form atting of this note might be different from the original. EXAMINATION: CT ABDOMEN AND PELVIS W CON TRAST CLINICAL HISTORY: P/w abdominal pressure , retroperitoneal and abdominal abscesses, unknown cause, s/p IR drainag e, interval assessment of abscess pockets and potential [...] left base. Liver: Normal size and attenuation witho ut lesions. Bile ducts: Nondilated. Gallbladder: No calcified gallstones. No rmal caliber wall. Pancreas: Normal attenuation without gato jany dilatation. Spleen: Normal. Adrenals: The bilateral adrenal glands a re normal in size. There is some stranding within the fat adjacent to the left adrenal gland from the psoas abscess. Kidneys: Prompt symmetric enhancement. B ilateral symmetric course nodular cortical irregularities could be due to lobulation versus history of infections. No hydronephrosis present on today's exam. No areas of abnormal perfusion to suggest infarct or nephroni a. Vasculature: No aneurysm. Lymph Nodes: Prominent mary hepatis and aortocaval lymph nodes are likely attributable to the left retroperitoneal infection. Bowel: Oral contrast reaches the rectum. No dilated small or large bowel. There is diverticulosis of the descending and sigmoid colon without evidence of diverticulitis. No extravasation of cont rast is present. The appendix and terminal ileum are normal. Retroperitoneum, Peritoneum and mesenter y: No intraperitoneal free fluid or free air. As on previous studies there is a l oculated abscess along the left iliopsoas and left lateral abdominal obl ique musculature. Both collections show interval decrease in size with near reso lution of the left lower quadrant abdominal wall abscess. The two percutan eous drains are appropriately positioned within the collections. There does remai n some fluid within the left psoas abscess with the collection now measurin g approximately 3.5 x 7.2 x 17 cm (previously 7 x 11 x 20 cm on 05/10/2017 by my measurement). No new undrained retroperitoneal abscesses are identified . Abdominal wall: As reported above, there is near resolution of the left lower quadrant abdominal wall abscess compared to the 05/10/2017 CT with almost no appreciable residual fluid collection. Urinary Bladder: Normal. Reproductive organs: Normal. Osseous structures: No suspicious lesion s. IMPRESSION Status post percutaneous drainage of lef t psoas abscess and left lower quadrant abdominal wall abscess. There is interva l resolution of the left lower quadrant abdominal wall abscess and interval redu ction in size in the left psoas abscess as detailed above. Both percutaneous holly ins remain appropriately positioned within the target abscesses. No new intr a-abdominal abscesses are present. The underlying cause of the abscesses is not identified on today's exam. Gilson Mcgee MD IMG CT ORDERABLES Differential, Automated (05/15/2017 3:30 AM EST) P athologist Signature Neutrophils % 52.2 % [facility] Neutr Abs (ANC) 3.43 1.70 - [facility] 6.10 [facility] x10(3)/[facility] LABORATORY Lymphocytes % 34.0 % [facility] Lymphocytes Abs 2.2 0.9 - 3.2 [facility] x10(3)/[facility] LABORATORY Monocytes % 9.0 % [facility] Monocyte Abs 0.6 0.3 - 0.9 [facility] x10(3)/[facility] LABORATORY Eosinophils % 3.3 % [facility] Eosinophils Abs 0.2 0.0 - 0.4 [facility] x10(3)/[facility] LABORATORY Basophils % 0.9 % [facility] Basophils Abs 0.1 0.0 - 0.1 [facility] x10(3)/[facility] LABORATORY Immature Gran % 0.60 % [facility] Comment: Immature granulocytes(IG's)percentage an d absolute count will include metamyelocytes, myelocytes, and promyelo cytes. Blood smears from CBCs yielding IG's will be scanned manually for concor dananna marie. If this scan disagrees with the automated IG or if promyelocytes are not ed, a manual differential will be performed. Mehnaz Gran Abs 0.04 0.00 - 0.04 x10(3)/[facility] Specimen Anatomical Collection Method Collection Time Receive d Time (Source) Location / / Volume Laterality Blood specimen 05/15/2017 3:30 AM 018 3:55 (specimen) EST AM EST Resulting Agency Comment Spec In Lab Gilson Mcgee MD HEMATOLOGY ORDERABLES Performing Organization Address City/State/[place] [address] (ABNORMAL) Hemogram (05/15/2017 3:30 AM EST) Analysis Performed At Patho logist Time Signature WBC 6.6 4.0 - 9.5 [facility] x10(3)/[facility] LABORATORY RBC 3.61 (L) 4.58 - [facility] x10(6[facility] LABORATORY Hemoglobin 10.5 (L) 13.7 - [facility] 16.5 gm/dL [facility] Hematocrit 32.6 (L) 40.5 - [facility] 48.5 % [facility] MCV 90.3 82.9 - [facility]1 [facility] LABORATORY MCH 29.1 27.5 - [facility] RAJ[facility] 32.1 pg [facility] MCHC 32.2 32.0 - [facility] 35.7 gm/dL [facility] Platelets 239 145 - 357 [facility] x10(3)/[facility] LABORATORY RDWSD 54.4 (H) 36.0 - [facility] RA[facility] 45.0 [facility] LABORATORY RDWCV 17.6 (H) 11.4 - [facility] RAJ[facility] 13.8 % [facility] MPV 8.7 7.6 - 12.9 [facility] nRBC % Auto 0.0 % [facility] nRBC Abs Auto 0.000 0.000 - [facility] 0.000 [facility] x10(3)/[facility] LABORATORY Specimen Anatomical Collection Method Collection Time Receive d Time (Source) Location / / Volume Laterality Blood specimen 05/15/2017 3:30 AM 018 3:55 (specimen) EST AM EST Resulting Agency Comment Spec In Lab Gilson Mcgee MD HEMATOLOGY ORDERABLES Performing Organization Address City/State/[place] [address] (ABNORMAL) Basic Metabolic Panel (non-fasting) (05/15/2017 3:30 AM EST) athologist Signature Glucose Lvl 100 65 - 199 [facility] mg/dL [facility] Comment: Diabetes: >=200 mg/dL plus symp toms BUN 17 10 - 20 mg/dL [facility] Creatinine 1.01 0.80 - 1.50 mg/dL [facility] Sodium 133 (L) 135 - 145 mmol/L [facility] Potassium 4.4 3.5 - 5.0 mmol/L [facility] Comment: Please note: ??Patients with WBC >100,00 0 may have falsely elevated Potassium levels. ??For accurate Potassium quantif ication in these patients send serum separator tube (gold top) for subsequent determinations. ??Contact the Clinical Chemistry Laboratory if there are any qu estions. Chloride 97 (L) 98 - 107 mmol/L [facility] CO2 22 22 - 31 mmol/L [facility] Anion Gap 14 5 - 15 mmol/L [facility] Calcium 9.3 8.5 - 10.5 mg/dL [facility] Estimated GFR >60 >=60 [facility] Comment: The reported eGFR should be multiplied b y 1.2 for patients. The MDRD is not an appropriate measure o f renal function for patients with body mass extremes or in patients with acute kidney failure. http://InsightETE/DHnkdep http://InsightETE/DHMCnkf Specimen Anatomical Collection Method Collection Time Receive d Time (Source) Location / / Volume Laterality Blood specimen 05/15/2017 3:30 AM 018 3:55 (specimen) EST AM EST Resulting Agency Comment Spec In Lab Gilson Mcgee MD CHEMISTRY ORDERABLES Performing Organization Address City/State/[place] [address] XR Fluoro Upper GI Single Contrast wo KUB (05/14/2017 9:24 AM EST) Anatomical Region Laterality Modality N/A Radio Fluoroscopy Specimen (Source) Anatomical Location Collection Method / Collectio n Time Received Time / Laterality Volume Impressions 05/14/2017 11:08 AM EST No evidence of gastric perforation on limited single contrast upper GI. I have personally reviewed the image(s) and the residents interpretation and agree with the findings, Isabel núñez at 05/14/2017 11:08 AM Narrative 05/14/2017 11:08 AM EST EXAMINATION: XR FLUORO UPPER GI SINGLE CONTRAST WO KUB CLINICAL HISTORY: Abdominal fullness, re troperitoneal and abdominal abscesses, unknown source, r/o stomach perforation or cause for colections TECHNIQUE: Limited single contrast UGI was performe d. Fluoroscopic spot films were obtained. Fluoro time: 0.38 minutes COMPARISON: CT chest, abdomen and pelvis 05/10/2017. FINDINGS: Oral contrast passed easily from the eso phagus into the stomach. Prompt gastric emptying with contrast passing easily in to duodenum and proximal small bowel. There is no extravasation of contrast to suggest perforation. No extraluminal contrast is seen surrounding the left pe ritoneal drain. Procedure Note Isabel Lazcano MD - 8 EXAMINATION: XR FLUORO UPPER GI SINGLE C ONTRAST WO KUB CLINICAL HISTORY: Abdominal fullness, re troperitoneal and abdominal abscesses, unknown source, r/o stomach perforation or cause for colections TECHNIQUE: Limited single contrast UGI was performe d. Fluoroscopic spot films were obtained. Fluoro time: 0.38 minutes COMPARISON: CT chest, abdomen and pelvis 05/10/2017. FINDINGS: Oral contrast passed easily from the eso phagus into the stomach. Prompt gastric emptying with contrast passing easily in to duodenum and proximal small bowel. There is no extravasation of contrast to suggest perforation. No extraluminal contrast is seen surrounding the left pe ritoneal drain. IMPRESSION No evidence of gastric perforation on li mited single contrast upper GI. I have personally reviewed the image(s) and the residents interpretation and agree with the findings, Isabel núñez at 05/14/2017 11:08 AM Gilson Mcgee MD IMG FLUORO ORDERABLES (ABNORMAL) Basic Metabolic Panel (non-fasting) (05/14/2017 2:06 AM EST) P athologist Signature Glucose Lvl 107 65 - 199 [facility] mg/dL [facility] Comment: Diabetes: >=200 mg/dL plus symp toms BUN 19 10 - 20 mg/dL [facility] Creatinine 1.24 0.80 - 1.50 mg/dL [facility] Sodium 131 (L) 135 - 145 mmol/L [facility] Potassium 4.6 3.5 - 5.0 mmol/L [facility] Comment: Please note: ??Patients with WBC >100,00 0 may have falsely elevated Potassium levels. ??For accurate Potassium quantif ication in these patients send serum separator tube (gold top) for subsequent determinations. ??Contact the Clinical Chemistry Laboratory if there are any qu estions. Chloride 95 (L) 98 - 107 mmol/L [facility] CO2 22 22 - 31 mmol/L [facility] Anion Gap 14 5 - 15 mmol/L [facility] Calcium 9.2 8.5 - 10.5 mg/dL [facility] Estimated GFR 59 (L) >=60 [facility] Comment: The reported eGFR should be multiplied b y 1.2 for patients. The MDRD is not an appropriate measure o f renal function for patients with body mass extremes or in patients with acute kidney failure. http://[employer]/DHnkdep http://InsightETE/DHMCnkf Specimen Anatomical Collection Method Collection Time Receive d Time (Source) Location / / Volume Laterality Blood specimen 05/14/2017 2:06 AM 018 2:16 (specimen) EST AM EST Resulting Agency Comment Spec In Lab Gilson Mcgee MD CHEMISTRY ORDERABLES Performing Organization Address City/State/[place] [address] MRI Lumbar Spine wwo Contrast (05/13/2017 7:28 PM EST) Anatomical Region Laterality Modality L-spine Magnetic Resonance Specimen (Source) Anatomical Location Collection Method / Collectio n Time Received Time / Laterality Volume Impressions 05/13/2017 8:11 PM EST No findings to suggest osteomyelitis/discitis. Comment: The following findings are so c ommon in people without low back pain that while we report their presence, the y must be interpreted with caution and in context of the clinical situation (Re ridge- Guilhermek et al, Spine 2001). Findings: (Prevalence in patients withou t low back pain), disc degeneration (decreased T2 signal, height loss, bulge ) (91%), disc T2-signal loss (83%), disc height loss (56%), disc bulge (64%), dis c protrusion (32%), annular fissure (38%). Narrative 05/13/2017 8:11 PM EST EXAMINATION: MRI LUMBAR SPINE WWO CONTRAST CLINICAL HISTORY: Abdominal fullness, re troperitoneal and abd abscesses, unknown source, CT shows new air in disc space o f L2-3, r/o discitis either causing or secondary to infection TECHNIQUE: MR of the lumbar spine perfor med prior to and following intravenous administration of 20 mL dotarem. COMPARISON: CT 05/10/2017 FINDINGS: There is slight anterolisthesi s of L4 on L5. Alignment is otherwise maintained. There is signal is diffusely hypointense on T1, without focal marrow signal abnormality or abnormal enhanceme nt presumably reflecting right marrow reactivation. The conus is normal in italo earance, and terminates at the L1-L2 level. There is a complex fluid collecti on in the left retroperitoneum. No findings of discitis/osteomyelitis. Ther e are lower lumbar spine facet degenerative changes, disc degenerative changes at L4-L5 with moderate central canal and mild bilateral foraminal narro wing. Procedure Note Jose Louie MD - 05/13/2017Format ting of this note might be different from the original. EXAMINATION: MRI LUMBAR SPINE WWO CONTRA ST CLINICAL HISTORY: Abdominal fullness, re troperitoneal and abd abscesses, unknown source, CT shows new air in disc space o f L2-3, r/o discitis either causing or secondary to infection TECHNIQUE: MR of the lumbar spine perfor med prior to and following intravenous administration of 20 mL dotarem. COMPARISON: CT 05/10/2017 FINDINGS: There is slight anterolisthesi s of L4 on L5. Alignment is otherwise maintained. There is signal is diffusely hypointense on T1, without focal marrow signal abnormality or abnormal enhanceme nt presumably reflecting right marrow reactivation. The conus is normal in italo earance, and terminates at the L1-L2 level. There is a complex fluid collecti on in the left retroperitoneum. No findings of discitis/osteomyelitis. Ther e are lower lumbar spine facet degenerative changes, disc degenerative changes at L4-L5 with moderate central canal and mild bilateral foraminal narro wing. IMPRESSION No findings to suggest osteomyelitis/dis citis. Comment: The following findings are so c ommon in people without low back pain that while we report their presence, the y must be interpreted with caution and in context of the clinical situation (Re sherif Oconnor et al, Spine 2001). Findings: (Prevalence in patients withou t low back pain), disc degeneration (decreased T2 signal, height loss, bulge ) (91%), disc T2-signal loss (83%), disc height loss (56%), disc bulge (64%), dis c protrusion (32%), annular fissure (38%). Gilson Mcgee MD [facility] MRI ORDERABLES XR Pre MRI Orbits (Generic) (05/13/2017 10:16 AM EST) Anatomical Region Laterality Modality Head N/A Digital Radiography Specimen (Source) Anatomical Location Collection Method / Collectio n Time Received Time / Laterality Volume Impressions 05/13/2017 10:26 AM EST No radiopaque foreign body in the region of the orbits. 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 COMPARISON: None FINDINGS: No radiopaque foreign body is seen in th e region of the orbits. Dental hardware is noted in the left aspect of the oral cavity. Procedure Note Jodi Whyte MD - 05/13/2017Formatting o f this note might be different from the original. 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 COMPARISON: None FINDINGS: No radiopaque foreign body is seen in th e region of the orbits. Dental hardware is noted in the left aspect of the oral cavity. IMPRESSION No radiopaque foreign body in the region of the orbits. Gilson GHOTRA DX ORDERABLES (ABNORMAL) Differential, Automated (05/13/2017 1:48 AM EST) P athologist Signature Neutrophils % 48.4 % [facility] Neutr Abs (ANC) 2.93 1.70 - [facility] 6.10 [facility] x10(3)/[facility] LABORATORY Lymphocytes % 37.2 % [facility] Lymphocytes Abs 2.2 0.9 - 3.2 [facility] x10(3)/[facility] LABORATORY Monocytes % 8.8 % [facility] Monocyte Abs 0.5 0.3 - 0.9 [facility] x10(3)/[facility] LABORATORY Eosinophils % 4.0 % [facility] Eosinophils Abs 0.2 0.0 - 0.4 [facility] x10(3)/[facility] LABORATORY Basophils % 0.8 % [facility] Basophils Abs 0.0 0.0 - 0.1 [facility] x10(3)/[facility] LABORATORY Immature Gran % 0.80 % [facility] Comment: Immature granulocytes(IG's)percentage an d absolute count will include metamyelocytes, myelocytes, and promyelo cytes. Blood smears from CBCs yielding IG's will be scanned manually for concor dance. If this scan disagrees with the automated IG or if promyelocytes are not ed, a manual differential will be performed. Mehnaz Gran Abs 0.05 (H) 0.00 - 0.04 x10(3)/[facility] LABORATORY Specimen Anatomical Collection Method Collection Time Receive d Time (Source) Location / / Volume Laterality Blood specimen 05/13/2017 1:48 AM 018 2:14 (specimen) EST AM EST Resulting Agency Comment Spec In Lab Gilson Mcgee MD HEMATOLOGY ORDERABLES Performing Organization Address City/State/[place] [address] (ABNORMAL) Hemogram (05/13/2017 1:48 AM EST) Analysis Performed At Patho logist Time Signature WBC 6.0 4.0 - 9.5 [facility] x10(3)/[facility] LABORATORY RBC 3.58 (L) 4.58 - [facility] 5.54 [facility] x10(6)/[facility] LABORATORY Hemoglobin 10.2 (L) 13.7 - [facility] 16.5 gm/dL [facility] Hematocrit 32.1 (L) 40.5 - [facility] 48.5 % [facility] MCV 89.7 82.9 - [facility] 93.1 [facility] LABORATORY MCH 28.5 27.5 - [facility] 32.1 pg [facility] MCHC 31.8 (L) 32.0 - [facility] 35.7 gm/dL [facility] Platelets 273 145 - 357 [facility] x10(3)/[facility] LABORATORY RDWSD 54.0 (H) 36.0 - [facility] 45.0 [facility] LABORATORY RDWCV 16.8 (H) 11.4 - [facility] 13.8 % [facility] MPV 8.7 7.6 - 12.9 [facility] LABORATORY nRBC % Auto 0.0 % [facility] nRBC Abs Auto 0.000 0.000 [facility] x10(3)/[facility] LABORATORY Specimen Anatomical Collection Method Collection Time Receive d Time (Source) Location / / Volume Laterality Blood specimen 05/13/2017 1:48 AM 018 2:14 (specimen) EST AM EST Resulting Agency Comment Spec In Lab Gilson Mcgee MD HEMATOLOGY ORDERABLES Performing Organization Address City/State/[place] [address] (ABNORMAL) Basic Metabolic Panel (non-fasting) (05/13/2017 1:48 AM EST) P athologist Signature Glucose Lvl 103 65 - [address] [facility]dL [facility] Comment: Diabetes: >=200 mg/dL plus symp toms BUN 20 10 - 20 mg/dL [facility] Creatinine 1.32 0.80 - 1.50 mg/dL [facility] Sodium 133 (L) 135 - 145 mmol/L [facility] Potassium 4.6 3.5 - 5.0 mmol/L [facility] Comment: Please note: ??Patients with WBC >100,00 0 may have falsely elevated Potassium levels. ??For accurate Potassium quantif ication in these patients send serum separator tube (gold top) for subsequent determinations. ??Contact the Clinical Chemistry Laboratory if there are any qu estions. Chloride 97 (L) 98 - 107 mmol/L [facility] CO2 22 22 - 31 mmol/L [facility] Anion Gap 14 5 - 15 mmol/L [facility] Calcium 9.1 8.5 - 10.5 mg/dL [facility] Estimated GFR 55 (L) >=60 [facility] Comment: The reported eGFR should be multiplied b y 1.2 for patients. The MDRD is not an appropriate measure o f renal function for patients with body mass extremes or in patients with acute kidney failure. http://InsightETE/DHnkdep http://InsightETE/DHMCnkf Specimen Anatomical Collection Method Collection Time Receive d Time (Source) Location / / Volume Laterality Blood specimen 05/13/2017 1:48 AM 018 2:14 (specimen) EST AM EST Resulting Agency Comment Spec In Lab Gilson Mcgee MD CHEMISTRY ORDERABLES Performing Organization Address City/State/ZIP Code Phon e Number [place] [id number] (ABNORMAL) Basic Metabolic Panel (non-fasting) (05/12/2017 2:10 PM EST) P athologist Signature Glucose Lvl 129 65 - 199 [facility] mg/dL [facility] Comment: Diabetes: >=200 mg/dL plus symp toms BUN 22 (H) 10 - 20 mg/dL [facility] Creatinine 1.45 0.80 - 1.50 mg/dL [facility] Sodium 131 (L) 135 - 145 mmol/L [facility] Potassium 4.6 3.5 - 5.0 mmol/L [facility] Comment: Please note: ??Patients with WBC >100,00 0 may have falsely elevated Potassium levels. ??For accurate Potassium quantif ication in these patients send serum separator tube (gold top) for subsequent determinations. ??Contact the Clinical Chemistry Laboratory if there are any qu estions. Chloride 98 98 - 107 mmol/L [facility] CO2 21 (L) 22 - 31 mmol/L [facility] Anion Gap 12 5 - 15 mmol/L [facility] Calcium 9.0 8.5 - 10.5 mg/dL [facility] Estimated GFR 49 (L) >=60 [facility] Comment: The reported eGFR should be multiplied b y 1.2 for patients. The MDRD is not an appropriate measure o f renal function for patients with body mass extremes or in patients with acute kidney failure. [email or web address]/DHnkdep [email or web address]/[email or web address] Specimen Anatomical Collection Method Collection Time Receive d Time (Source) Location / / Volume Laterality Blood specimen 05/12/2017 2:10 PM 018 3:43 (specimen) EST PM EST Resulting Agency Comment Spec In Lab Gilson Mcgee MD CHEMISTRY ORDERABLES Performing Organization Address City/State/ZIP Code Phon e Number [place] [id number] XR Abdomen Flat & Upright (05/12/2017 1:53 PM EST) Anatomical Region Laterality Modality Abdomen N/A Digital Radiography Specimen (Source) Anatomical Location Collection Method / Collectio n Time Received Time / Laterality Volume Impressions 05/12/2017 1:57 PM EST No radiographic evidence of obstruction or perforation. Narrative 05/12/2017 1:57 PM EST EXAMINATION: XR ABDOMEN FLAT AND UPRIGHT CLINICAL HISTORY: Determine ability to p erform swallow study TECHNIQUE: Supine and upright views of the abdomen COMPARISON: None FINDINGS: Left sided abdominal pigtail drains. No radiographic evidence of free air. Im aged portions of lung bases unremarkable. No abnormally distended lo ops of small bowel though scattered air-fluid levels are noted. Air-filled l oops of large bowel are not abnormally distended without air-fluid level. No ab normal soft tissue masses. Opacified diverticula noted within the left colon. Procedure Note Chandrika James MD - 05/12/2017 EXAMINATION: XR ABDOMEN FLAT AND UPRIGHT CLINICAL HISTORY: Determine ability to p erform swallow study TECHNIQUE: Supine and upright views of the abdomen COMPARISON: None FINDINGS: Left sided abdominal pigtail drains. No radiographic evidence of free air. Im aged portions of lung bases unremarkable. No abnormally distended lo ops of small bowel though scattered air-fluid levels are noted. Air-filled l oops of large bowel are not abnormally distended without air-fluid level. No ab normal soft tissue masses. Opacified diverticula noted within the left colon. IMPRESSION No radiographic evidence of obstruction or perforation. Gilson Mcgee MD IMG DX ORDERABLES POCT Glucose (05/12/2017 8:16 AM EST) athologist Signature POC Glucose 130 65 - 199 [facility]dL [facility] LAB[facility]ORY Comment: Supplemental ranges: <140 mg/dL before meals <180 mg/dL all other times of the day Specimen Anatomical Collection Method Collection Time Receive d Time (Source) Location / / Volume Laterality Blood specimen 05/12/2017 8:16 AM 018 8:16 (specimen) EST AM EST Gilson Mcgee MD POINT OF CARE TEST ORDERABLE S Performing Organization Address City/[facility]/[place] [address] POCT Glucose (05/12/2017 6:15 AM EST) athologist Signature POC Glucose 94 65 - 199 [facility]dL [facility] Comment: Supplemental ranges: <140 mg/dL before meals <180 mg/dL all other times of the day Specimen Anatomical Collection Method Collection Time Receive d Time (Source) Location / / Volume Laterality Blood specimen 05/12/2017 6:15 AM 018 6:15 (specimen) EST AM EST Gilson Mcgee MD POINT OF CARE TEST ORDERABLE S Performing Organization Address City/[facility]/ZIP Code Phon e Number [place] RAJENDRA[address] POCT Glucose (05/12/2017 4:20 AM EST) athologist [facility] POC Glucose 104 65 - 199 [facility] mg/dL [facility] Comment: Supplemental ranges: <140 mg/dL before meals <180 mg/dL all other times of the day Specimen Anatomical Collection Method Collection Time Receive d Time (Source) Location / / Volume Laterality Blood specimen 05/12/2017 4:20 AM 018 4:20 (specimen) EST AM EST Gilson Mcgee MD POINT OF CARE TEST ORDERABLE S Performing Organization Address City/State/ZIP Code Phon e Number [address] (ABNORMAL) Differential, Automated (05/12/2017 1:43 AM EST) athologist Signature Neutrophils % 55.1 % [facility] LABORATORY Neutr Abs (ANC) 4.64 1.70 - [facility] 6.10 [facility] x10(3)/[facility] LABORATORY Lymphocytes % 33.8 % [facility] LABORATORY Lymphocytes Abs 2.8 0.9 - 3.2 [facility] x10(3)/[facility] LABORATORY Monocytes % 6.9 % [facility] LABORATORY Monocyte Abs 0.6 0.3 - 0.9 [facility] x10(3)/[facility] LABORATORY Eosinophils % 2.8 % [facility] LABORATORY Eosinophils Abs 0.2 0.0 - 0.4 [facility] x10(3)/[facility] LABORATORY Basophils % 0.8 % [facility] LABORATORY Basophils Abs 0.1 0.0 - 0.1 [facility] x10(3)/[facility] LABORATORY Immature Gran % 0.60 % [facility] LABORATORY Comment: Immature granulocytes(IG's)percentage an d absolute count will include metamyelocytes, myelocytes, and promyelo cytes. Blood smears from CBCs yielding IG's will be scanned manually for concor dance. If this scan disagrees with the automated IG or if promyelocytes are not ed, a manual differential will be performed. Mehnaz Gran Abs 0.05 (H) 0.00 - 0.04 x10(3)/[facility] LABORATORY Specimen Anatomical Collection Method Collection Time Receive d Time (Source) Location / / Volume Laterality Blood specimen 05/12/2017 1:43 AM 018 1:50 (specimen) EST AM EST Resulting Agency Comment Spec In Lab Gilson Mcgee MD HEMATOLOGY ORDERABLES Performing Organization Address City/State/[place] [address] (ABNORMAL) Hemogram (05/12/2017 1:43 AM EST) Analysis Performed At Patho logist Time Signature WBC 8.4 4.0 - 9.5 [facility] x10(3)/[facility] LABORATORY RBC 3.74 (L) 4.58 - [facility] RAJENDRA 5.54 [facility] x10(6)/[facility] LABORATORY Hemoglobin 10.7 (L) 13.7 - [facility]/dL [facility] LABORATORY Hematocrit 33.4 (L) 40.5 - [facility] 48.5 % [facility] LABORATORY MCV 89.3 82.9 - [facility] 93.1 [facility] LABORATORY MCH 28.6 27.5 - [facility] 32.1 pg [facility] LABORATORY MCHC 32.0 32.0 - [facility] 35.7 gm/dL [facility] LAB[facility]ATORY Platelets 314 145 - 357 [facility] x10(3)/[facility] LABORATORY RDWSD 52.9 (H) 36.0 - [facility] RAJENDRA 45.0 [facility] LABORATORY RDWCV 16.7 (H) 11.4 - [facility] RAJENDRA 13.8 % [facility] LABORATORY MPV 8.6 7.6 - 12.9 [facility] LABORATORY nRBC % Auto 0.0 % [facility] LABORATORY nRBC Abs Auto 0.000 0.000 - [place] RAJENDRA 0.000 [facility] x10(3)/[facility] LABORATORY Specimen Anatomical Collection Method Collection Time Receive d Time (Source) Location / / Volume Laterality Blood specimen 05/12/2017 1:43 AM 018 1:50 (specimen) EST AM EST Resulting Agency Comment Spec In Lab Gilson Mcgee MD HEMATOLOGY ORDERABLES Performing Organization Address City/State/[place] [address] (ABNORMAL) Basic Metabolic Panel (non-fasting) (05/12/2017 1:43 AM EST) P athologist Signature Glucose Lvl 104 65 - 199 [facility] mg/dL [facility] LAB[facility] Comment: Diabetes: >=200 mg/dL plus symp toms BUN 23 (H) 10 - 20 mg/dL [facility] LABORATORY Creatinine 1.59 (H) 0.80 - 1.50 mg/dL [facility] LABORATORY Sodium 130 (L) 135 - 145 mmol/L [facility] LABORATORY Potassium 5.1 (H) 3.5 - 5.0 mmol/L [facility] LABORATORY Comment: Please note: ??Patients with WBC >100,00 0 may have falsely elevated Potassium levels. ??For accurate Potassium quantif ication in these patients send serum separator tube (gold top) for subsequent determinations. ??Contact the Clinical Chemistry Laboratory if there are any qu estions. Chloride 96 (L) 98 - 107 mmol/L [facility] LABORATORY CO2 20 (L) 22 - 31 mmol/L [facility] LABORATORY Anion Gap 14 5 - 15 mmol/L [facility] LABORATORY Calcium 9.1 8.5 - 10.5 mg/dL [facility] LABORATORY Estimated GFR 44 (L) >=60 [facility] LABORATORY Comment: The reported eGFR should be multiplied b y 1.2 for patients. The MDRD is not an appropriate measure o f renal function for patients with body mass extremes or in patients with acute kidney failure. [email or web address] [email or web address] [email or web address] [email or web address] Specimen Anatomical Collection Method Collection Time Receive d Time (Source) Location / / Volume Laterality Blood specimen 05/12/2017 1:43 AM 018 1:50 (specimen) EST AM EST Resulting Agency Comment Spec In Lab Gilson Mcgee MD CHEMISTRY ORDERABLES Performing Organization Address City/State/[place] [address] (ABNORMAL) Basic Metabolic Panel (non-fasting) (05/11/2017 9:37 PM EST) P athologist Signature Glucose Lvl 104 65 - 199 [facility] mg/dL [facility] LABORATORY Comment: Diabetes: >=200 mg/dL plus symp toms BUN 24 (H) 10 - 20 mg/dL [facility] LABORATORY Creatinine 1.55 (H) 0.80 - 1.50 mg/dL [facility] LABORATORY Sodium 132 (L) 135 - 145 mmol/L [facility] LABORATORY Potassium 4.8 3.5 - 5.0 mmol/L [facility]ORATORY Comment: Please note: ??Patients with WBC >100,00 0 may have falsely elevated Potassium levels. ??For accurate Potassium quantif ication in these patients send serum separator tube (gold top) for subsequent determinations. ??Contact the Clinical Chemistry Laboratory if there are any qu estions. Chloride 98 98 - 107 mmol/L [facility] LABORATORY CO2 21 (L) 22 - 31 mmol/L [facility] LABORATORY Anion Gap 13 5 - 15 mmol/L [facility] LABORATORY Calcium 9.0 8.5 - 10.5 mg/dL [facility] LABORATORY Estimated GFR 46 (L) >=60 [facility] LABORATORY Comment: The reported eGFR should be multiplied b y 1.2 for patients. The MDRD is not an appropriate measure o f renal function for patients with body mass extremes or in patients with acute kidney failure. [email or web address] [email or web address] [email or web address] [email or web address] Specimen Anatomical Collection Method Collection Time Receive d Time (Source) Location / / Volume Laterality Blood specimen 05/11/2017 9:37 PM 018 9:42 (specimen) EST PM EST Resulting Agency Comment Spec In Lab Gilson Mcgee MD CHEMISTRY ORDERABLES Performing Organization Address City/State/ZIP Code Phon e Number [place] [phone]OS[address] LAB[address]ORY Drive EKG 12 Lead (05/11/2017 5:23 PM EST) Component Value Ref Range Test Analysis Performed Pathologis t Method Time At Signature Ventricular rate 93 BPM MUSE SYSTEM Atrial Rate 93 BPM MUSE SYSTEM P-R Interval 176 ms MUSE SYSTEM QRS Duration 90 ms MUSE SYSTEM Q-T Interval 344 ms MUSE SYSTEM QTC Calculated 427 ms MUSE SYSTEM (Bezet) Calculated P [place] 43 degrees MUSE SYSTEM Calculated R [place] -3 degrees MUSE SYSTEM Calculated T [place] 6 degrees MUSE SYSTEM INTERPRETATION Sinus rhythm with frequent Premature ventricular compl exes MUSE SYSTEM Low voltage QRS Borderline ECG When compared with ECG of 11-MAY-2017 02:56, Premature ventricular complexes are now Present Confirmed by MD Lamar, Walter Tapia ([id number]) on 05/12/2017 10:32:5 5 AM Specimen Anatomical Collection Method Collection Time Receive d Time (Source) Location / / Volume Laterality 05/11/2017 5:23 PM 8 EST 10:32 AM EST Gilson Mcgee MD ECG ORDERABLES Performing Organization Address City/[facility]/ZIP Code Phon e Number MUSE SYSTEM (ABNORMAL) Basic Metabolic Panel (non-fasting) (05/11/2017 3:34 PM EST) P athologist Signature Glucose Lvl 112 65 - 199 [facility] mg/dL [facility] LABORATORY Comment: Diabetes: >=200 mg/dL plus symp toms BUN 24 (H) 10 - 20 mg/dL [facility] LABORATORY Creatinine 1.64 (H) 0.80 - 1.50 mg/dL [facility] LABORATORY Sodium 132 (L) 135 - 145 mmol/L [facility] LABORATORY Potassium 5.4 (H) 3.5 - 5.0 mmol/L [facility] LABORATORY Comment: Please note: ??Patients with WBC >100,00 0 may have falsely elevated Potassium levels. ??For accurate Potassium quantif ication in these patients send serum separator tube (gold top) for subsequent determinations. ??Contact the Clinical Chemistry Laboratory if there are any qu estions. Chloride 97 (L) 98 - 107 mmol/L [facility] LABORATORY CO2 21 (L) 22 - 31 mmol/L [facility] LABORATORY Anion Gap 14 5 - 15 mmol/L [facility] LABORATORY Calcium 9.1 8.5 - 10.5 mg/dL [facility] LABORATORY Estimated GFR 43 (L) >=60 [facility] LABORATORY Comment: The reported eGFR should be multiplied b y 1.2 for patients. The MDRD is not an appropriate measure o f renal function for patients with body mass extremes or in patients with acute kidney failure. http://InsightETE/DHnkdep [email or web address]/[email or web address] Specimen Anatomical Collection Method Collection Time Receive d Time (Source) Location / / Volume Laterality Blood specimen 05/11/2017 3:34 PM 018 3:41 (specimen) EST PM EST Resulting Agency Comment Spec In Lab Gilson Mcgee MD CHEMISTRY ORDERABLES Performing Organization Address City/State/[place] [address] (ABNORMAL) Basic Metabolic Panel (non-fasting) (05/11/2017 9:49 AM EST) P athologist Signature Glucose Lvl 131 65 - 199 [facility] mg/dL [facility] Comment: Diabetes: >=200 mg/dL plus symp toms BUN 23 (H) 10 - 20 mg/dL [facility] LABORATORY Creatinine 1.56 (H) 0.80 - 1.50 mg/dL [facility] LABORATORY Sodium 132 (L) 135 - 145 mmol/L [facility] LABORATORY Potassium 5.1 (H) 3.5 - 5.0 mmol/L [facility]ORATORY Comment: Please note: ??Patients with WBC >100,00 0 may have falsely elevated Potassium levels. ??For accurate Potassium quantif ication in these patients send serum separator tube (gold top) for subsequent determinations. ??Contact the Clinical Chemistry Laboratory if there are any qu estions. Chloride 97 (L) 98 - 107 mmol/L [facility]OR[facility] CO2 20 (L) 22 - 31 mmol/L [facility]ORATORY Anion Gap 15 5 - 15 mmol/L [facility] LABORATORY Calcium 9.2 8.5 - 10.5 mg/dL [facility] LABORATORY Estimated GFR 45 (L) >=60 [facility] LABORATORY Comment: The reported eGFR should be multiplied b y 1.2 for patients. The MDRD is not an appropriate measure o f renal function for patients with body mass extremes or in patients with acute kidney failure. http://InsightETE/DHnkdep http://InsightETE/DHMCnkf Specimen Anatomical Collection Method Collection Time Receive d Time (Source) Location / / Volume Laterality Blood specimen 05/11/2017 9:49 AM 018 9:59 (specimen) EST AM EST Resulting Agency Comment Spec In Lab Gilson Mcgee MD CHEMISTRY ORDERABLES Performing Organization Address City/[facility]/ZIP Code Phon e Number [address] POCT Glucose (05/11/2017 7:58 AM EST) athologist Signature POC Glucose 96 65 - 199 [facility] mg/dL [facility] LABORATORY Comment: Supplemental ranges: <140 mg/dL before meals <180 mg/dL all other times of the day Specimen Anatomical Collection Method Collection Time Receive d Time (Source) Location / / Volume Laterality Blood specimen 05/11/2017 7:58 AM 018 7:58 (specimen) EST AM EST Gilson Mcgee MD POINT OF CARE TEST ORDERABLE S Performing Organization Address City/[facility]/ZIP Code Phon e Number [address] POCT Glucose (05/11/2017 6:02 AM EST) P athologist Signature POC Glucose 90 65 - [address] [facility]ORY Comment: Supplemental ranges: <140 mg/dL before meals <180 mg/dL all other times of the day Specimen Anatomical Collection Method Collection Time Receive d Time (Source) Location / / Volume Laterality Blood specimen 05/11/2017 6:02 AM 018 6:02 (specimen) EST AM EST Gilson Mcgee MD POINT OF CARE TEST ORDERABLE S Performing Organization Address City/[facility]/ZIP Code Phon e Number [address] POCT Glucose (05/11/2017 3:59 AM EST) P athologist Signature POC Glucose 87 65 - 199 [facility] mg/dL [facility] LABORATORY Comment: Supplemental ranges: <140 mg/dL before meals <180 mg/dL all other times of the day Specimen Anatomical Collection Method Collection Time Receive d Time (Source) Location / / Volume Laterality Blood specimen 05/11/2017 3:59 AM 018 3:59 (specimen) EST AM EST Gilson Mcgee MD POINT OF CARE TEST ORDERABLE S Performing Organization Address [facility] Code Phon e Number [address] EKG 12 Lead (05/11/2017 2:56 AM EST) Component Value Ref Range Test Analysis Performed Pathologis t Method Time At Signature Ventricular rate 88 BPM MUSE SYSTEM Atrial Rate 88 BPM MUSE SYSTEM P-R Interval 174 ms MUSE SYSTEM QRS Duration 94 ms MUSE SYSTEM Q-T Interval 362 ms MUSE SYSTEM QTC Calculated 438 ms MUSE SYSTEM (Bezet) Calculated P [place] 37 degrees MUSE SYSTEM Calculated R [place] 4 degrees MUSE SYSTEM Calculated T [place] 17 degrees MUSE SYSTEM INTERPRETATION Normal sinus rhythm MUSE SYSTEM Normal ECG When compared with ECG of 10-MAY-2017 17:51, (unconfirmed) No significant change was found Confirmed by MD AKIN, MARTA ([id number]) on 05/11/2017 11:43:55 A M Specimen Anatomical Collection Method Collection Time Receive d Time (Source) Location / / Volume Laterality 05/11/2017 2:56 AM 8 EST 11:43 AM EST Gilson Mcgee MD ECG ORDERABLES Performing Organization Address City/[facility]/ZIP Code Phon e Number MUSE SYSTEM (ABNORMAL) Differential, Automated (05/11/2017 12:57 AM EST) P athologist Signature Neutrophils % 58.5 % [facility] LABORATORY Neutr Abs (ANC) 5.46 1.70 - [facility] 6.10 [facility] x10(3)/[facility] LABORATORY Lymphocytes % 31.0 % [facility] LABORATORY Lymphocytes Abs 2.9 0.9 - 3.2 [facility] x10(3)/[facility] LABORATORY Monocytes % 6.6 % [facility] LABORATORY Monocyte Abs 0.6 0.3 - 0.9 [facility] x10(3)/[facility] LABORATORY Eosinophils % 2.5 % [facility] LABORATORY Eosinophils Abs 0.2 0.0 - 0.4 [facility] x10(3)/[facility] LABORATORY Basophils % 0.8 % [facility] LABORATORY Basophils Abs 0.1 0.0 - 0.1 [facility] x10(3)/[facility] LABORATORY Immature Gran % 0.60 % [facility] LABORATORY Comment: Immature granulocytes(IG's)percentage an d absolute count will include metamyelocytes, myelocytes, and promyelo cytes. Blood smears from CBCs yielding IG's will be scanned manually for concor dance. If this scan disagrees with the automated IG or if promyelocytes are not ed, a manual differential will be performed. Mehnaz Gran Abs 0.06 (H) 0.00 - 0.04 x10(3)/[facility] LABORATORY Specimen Anatomical Collection Method Collection Time Receive d Time (Source) Location / / Volume Laterality Blood specimen 05/11/2017 12:57 8 1:01 (specimen) AM EST AM EST Resulting Agency Comment Spec In Lab Gilson Mcgee MD HEMATOLOGY ORDERABLES Performing Organization Address City/State/[place] [address] (ABNORMAL) Hemogram (05/11/2017 12:57 AM EST) Analysis Performed At Patho logist Time Signature WBC 9.3 4.0 - 9.5 [facility] x10(3)/[facility] LABORATORY RBC 3.38 (L) 4.58 - [facility] 5.54 [facility] x10(6)/[facility] LABORATORY Hemoglobin 9.7 (L) 13.7 - [facility] 16.5 gm/dL [facility] LABORATORY Hematocrit 30.5 (L) 40.5 - [place] D[place]W 48.5 % [facility] LABORATORY MCV 90.2 82.9 - [facility] 93.1 [facility] LABORATORY MCH 28.7 27.5 - [place] JUNGCK 32.1 pg [facility] LABORATORY MCHC 31.8 (L) 32.0 - [place] PATELRAJENDRA 35.7 gm/dL [facility] LABORATORY Platelets 310 145 - 357 [facility] x10(3)/[facility] LABORATORY RDWSD 52.7 (H) 36.0 - [facility] 45.0 [facility] LABORATORY RDWCV 16.8 (H) 11.4 - [facility] 13.8 % [facility] LABORATORY MPV 8.5 7.6 - 12.9 [facility] LABORATORY nRBC % Auto 0.0 % [facility] LABORATORY nRBC Abs Auto 0.000 0.000 - [facility] 0.000 [facility] x10(3)/[facility] LABORATORY Specimen Anatomical Collection Method Collection Time Receive d Time (Source) Location / / Volume Laterality Blood specimen 05/11/2017 12:57 8 1:01 (specimen) AM EST AM EST Resulting Agency Comment Spec In Lab Gilson Mcgee MD HEMATOLOGY ORDERABLES Performing Organization Address City/State/[place] [address] (ABNORMAL) Basic Metabolic Panel (non-fasting) (05/11/2017 12:57 AM EST) P athologist Signature Glucose Lvl 97 65 - 199 [facility] mg/dL [facility] LABORATORY Comment: Diabetes: >=200 mg/dL plus symp toms BUN 24 (H) 10 - 20 mg/dL [facility] LABORATORY Creatinine 1.53 (H) 0.80 - 1.50 mg/dL [facility] LABORATORY Sodium 129 (L) 135 - 145 mmol/L [facility] LABORATORY Potassium 5.6 (H) 3.5 - 5.0 mmol/L [facility] LABORATORY Comment: Please note: ??Patients with WBC >100,00 0 may have falsely elevated Potassium levels. ??For accurate Potassium quantif ication in these patients send serum separator tube (gold top) for subsequent determinations. ??Contact the Clinical Chemistry Laboratory if there are any qu estions. Chloride 95 (L) 98 - 107 mmol/L [facility] LABORATORY CO2 21 (L) 22 - 31 mmol/L [facility] LABORATORY Anion Gap 13 5 - 15 mmol/L [facility] LABORATORY Calcium 9.3 8.5 - 10.5 mg/dL [facility] LABORATORY Estimated GFR 46 (L) >=60 [facility] LABORATORY Comment: The reported eGFR should be multiplied b y 1.2 for patients. The MDRD is not an appropriate measure o f renal function for patients with body mass extremes or in patients with acute kidney failure. http://InsightETE/DHnkdep [email or web address]://InsightETE/DHMCnkf Specimen Anatomical Collection Method Collection Time Receive d Time (Source) Location / / Volume Laterality Blood specimen 05/11/2017 12:57 8 1:01 (specimen) AM EST AM EST Resulting Agency Comment Spec In Lab Gilson Mcgee MD CHEMISTRY ORDERABLES Performing Organization Address City/[facility]/ZIP [place] [address] POCT Glucose (05/10/2017 7:41 PM EST) P athologist Signature POC Glucose 97 65 - 199 [facility] mg/dL [facility] Comment: Supplemental ranges: <140 mg/dL before meals <180 mg/dL all other times of the day Specimen Anatomical Collection Method Collection Time Receive d Time (Source) Location / / Volume Laterality Blood specimen 05/10/2017 7:41 PM 018 7:41 (specimen) EST PM EST Gilson Mcgee MD POINT OF CARE TEST ORDERABLE S Performing Organization Address City/[facility]/[place]IP [place] [address] (ABNORMAL) Basic Metabolic Panel (non-fasting) (05/10/2017 7:25 PM EST) athologist Signature Glucose Lvl 85 65 - 199 [facility] mg/dL [facility] Comment: Diabetes: >=200 mg/dL plus symp toms BUN 25 (H) 10 - 20 mg/dL [facility] Creatinine 1.68 (H) 0.80 - 1.50 mg/dL [facility] Sodium 131 (L) 135 - 145 mmol/L [facility] Potassium 5.4 (H) 3.5 - 5.0 mmol/L [facility] Comment: Please note: ??Patients with WBC >100,00 0 may have falsely elevated Potassium levels. ??For accurate Potassium quantif ication in these patients send serum separator tube (gold top) for subsequent determinations. ??Contact the Clinical Chemistry Laboratory if there are any qu estions. Chloride 96 (L) 98 - 107 mmol/L [facility] CO2 21 (L) 22 - 31 mmol/L [facility] Anion Gap 14 5 - 15 mmol/L [facility] Calcium 9.4 8.5 - 10.5 mg/dL [facility] Estimated GFR 42 (L) >=60 [facility] Comment: The reported eGFR should be multiplied b y 1.2 for patients. The MDRD is not an appropriate measure o f renal function for patients with body mass extremes or in patients with acute kidney failure. http://[employer]/DHnkdep http://InsightETE/DHMCnkf Specimen Anatomical Collection Method Collection Time Receive d Time (Source) Location / / Volume Laterality Blood specimen 05/10/2017 7:25 PM 018 7:29 (specimen) EST PM EST Resulting Agency Comment Spec In Lab Gilson Mcgee MD CHEMISTRY ORDERABLES Performing Organization Address City/State/[place] [address] POCT Glucose (05/10/2017 6:35 PM EST) athologist Signature POC Glucose 154 65 - 199 [facility] mg/dL [facility] Comment: Supplemental ranges: <140 mg/dL before meals <180 mg/dL all other times of the day Specimen Anatomical Collection Method Collection Time Receive d Time (Source) Location / / Volume Laterality Blood specimen 05/10/2017 6:35 PM 018 6:35 (specimen) EST PM EST Gilson Mcgee MD POINT OF CARE TEST ORDERABLE S Performing Organization Address City/[facility]/[place] [address] EKG 12 Lead (05/10/2017 5:51 PM EST) Patholo gist Method Time Signature Ventricular rate 83 BPM MUSE SYSTEM Atrial Rate 83 BPM MUSE SYSTEM P-R Interval 192 ms MUSE SYSTEM QRS Duration 96 ms MUSE SYSTEM Q-T Interval 364 ms MUSE SYSTEM QTC Calculated 427 ms MUSE SYSTEM (Bezet) Calculated P [place] 23 degrees MUSE SYSTEM Calculated R [place] 5 degrees MUSE SYSTEM Calculated T [place] 25 degrees MUSE SYSTEM INTERPRETATION Normal sinus rhythm MUSE SYSTEM Normal ECG No previous ECGs available Confirmed by MD AKIN, MARTA ([id number]) on 05/11/2017 6:43:23 AM Specimen Anatomical Collection Method Collection Time Receive d Time (Source) Location / / Volume Laterality 05/10/2017 5:51 PM 8 6:43 EST AM EST Gilson Mcgee MD ECG ORDERABLES Performing Organization Address City/[facility]/ZIP Code Phon e Number MUSE SYSTEM CT Guided Drain Retroperitoneal Abscess (05/10/2017 4:34 PM EST) Anatomical Region Laterality Modality Computed Tomography Specimen (Source) Anatomical Location Collection Method / Collectio n Time Received Time / Laterality Volume Impressions 05/14/2017 9:04 AM EST : Technically successful drain placement in left paracolic gutter abscess. RECOMMENDATIONS: 1. Please keep drain to bulb suction. 2. Please record drain outputs Qshift an d PRN full bulb 3. Flush drain with 5-10 cc NS BID Resident: Kiara Lucero MD ?? Attending: Sumeet Salinas MD I, Dr. Salinas, was present throughout th e procedure. I was present during the intraservice ti me as documented by the IR Nurse. ?? Narrative 05/14/2017 9:04 AM EST IR PROCEDURE NOTE: ?? CT-guided left paracolic abscess drain placement INDICATION: Left paracolic gutter absces s 61 year old male with large retroperiton eal abscess status post IR drain placement 04/27/2017 and drain upsizing 05/02/2017. He presented for CT scan to evaluate this retroperitoneal ab scess where he was found to have a new 23 cm collection in the left paracol ic gutter. IR has been consulted for CT guided drain placement. TECHNIQUE: After discussing the the risk s (including infection and hemorrhage), and benefits, the patient c onsented to the procedure. ??Due to the painful nature of the procedure, spl it doses of fentanyl and versed were administered by the IR nurse during continuous monitoring of pulse, blood pressure and oxygen saturation. ?? The lesion was localized with CT. ??Afte r sterile preparation of the overlying skin, approximately 7 cc of 1% lidocaine SQ was administered for anesthesia, and an 18 ga needle was adva nced under CT guidance into the collection. Pinkish brown opaque purulen t fluid was aspirated. ??Over an .035 guidewire, the tract was dilated t o 10 Fr, and a 10 Fr locking pigtail drain was placed. ??The catheter was secured to the skin and left to bulb suction drainage. ??Post-procedu re CT images were obtained. ??The patient tolerated the procedure well. ?? There were no immediate complications. Contrast: ??0 cc EBL: ??0 cc. FINDINGS: 1. Large left paracolic abscess with pin jessica brown opaque purulent fluid aspirated and sent to the laboratory for analysis. 2. Post procedure CT demonstrated pigtai l catheter drain appropriately positioned within the left paracolic abs cess. Gilson Mcgee MD [facility] CT ORDERABLES Anaerobic Culture (05/10/2017 4:30 PM EST) [facility] gist Method Time Signature Anaerobic No anaerobic [facility] Culture organisms [facility] LABORATORY Specimen (Source) Anatomical Collection Method Collection Time Re ceived Time Location / / Volume Laterality Specimen from 05/10/2017 4:30 05/10/2017 5:19 abdominal cavity PM EST PM EST (specimen) Comment: P/W INCREASED FLUID COLLECTION IN RETROPERITONUEM AND NEW FLUID COLLECTION IN L BARRY-COLIC GUTTER, ASYMPTOMATIC OTH ERWISE Resulting Agency Comment Spec In Lab Gilson Mcgee MD MICROBIOLOGY - GENERAL ORDER TIAN Performing Organization Address City/State/[place] [address] Body Fluid Culture, Aerobic (05/10/2017 4:30 PM EST) Component Value Ref Test Analysis [facility] Range Method Time Signature Body Fluid No growth [facility] Culture [facility] Gram Stain Many White Blood Cells seen M DANIEL No microorganisms seen. [facility] Specimen (Source) Anatomical Collection Method Collection Time Re ceived Time Location / / Volume Laterality Specimen from 05/10/2017 4:30 05/10/2017 5:19 abdominal cavity PM EST PM EST (specimen) Comment: P/W INCREASED FLUID COLLECTION IN RETROPERITONUEM AND NEW FLUID COLLECTION IN L BARRY-COLIC GUTTER, ASYMPTOMATIC OTH ERWISE Resulting Agency Comment Spec In Lab Gilson Mcgee MD MICROBIOLOGY - GENERAL ORDER TIAN Performing Organization Address City/[facility]/ZIP [place] [address] documented in this encounter Visit Diagnoses Diagnosis Hyperkalemia Hyperpotassemia Intra-abdominal abscess Peritoneal abscess Hyperkalemia Hyperpotassemia documented in this encounter Admitting Diagnoses Diagnosis Intra-abdominal abscess Peritoneal abscess documented in this encounter Administered Medications Inactive Administered Medications - up to 3 most recent administrations Medication Order MAR Action Action Date Dose Rate Site calcium gluconate 1g in sodium New Bag 05/10/2017 7:04 PM EST 1 g 100 mL/hr chloride 0.9% 100mL 1 g, Intravenous, ONCE, 1 dose, On Sat05/10/17 at 1715, Administer over 60 Minutes, Warning Vesicant/Irritant Medication calcium gluconate 1g in sodium New Bag 05/11/2017 3:01 AM EST 1 g 100 mL/hr chloride 0.9% 100mL 1 g, Intravenous, ONCE, 1 dose, On Sat05/11/17 at 0300, Administer over 60 Minutes, Warning Vesicant/Irritant Medication ceFEPime (MAXIPIME) injection 1g Given 05/15/2017 1:38 AM EST 1 g 1 g, Intravenous, EVERY 12 HOURS, First dose on Sat05/10/17 at 1415, Until Discontinued, Administer over 5 Minutes, 1. Reconstitute 1000 mg vial of ceFEPime with 10 mL of Sterile Water for Injection. Agitate until in solution. Resulting concentration is roughly 100 mg/mL. 2. Withdraw full contents of vial into 20 mL syringe. 3. Administer over 5 minutes via slow IV push. Give immediately after preparation., Indication for (Active or Suspected): GI/Intra-abdominal Given 05/14/2017 2:55 PM EST 1 g Given 05/14/2017 1:48 AM EST 1 g ceFEPime (MAXIPIME) injection 2 g Given 05/15/2017 2:11 PM EST 2 g 2 g, Intravenous, EVERY 12 HOURS, First dose (after last modification) on Sat05/15/17 at 1415, Until Discontinued, Administer over 5 Minutes, Renally dose adjusted per P&T policy 1. Reconstitute 2000 mg vial of ceFEPime with 10 mL of Sterile Water for Injection. Agitate until in solution. Resulting concentration is roughly 160 mg/mL. 2. Withdraw full contents of vial into 20 mL syringe. 3. Administer over 5 minutes via slow IV push. Give immediately after preparation. , Indication for (Active or Suspected): GI/Intra-abdominal ciprofloxacin (CIPRO) tablet 500 mg Given 05/16/2017 6:52 AM EST 500 mg 500 mg, Oral, 2 TIMES DAILY, First dose on Sat05/15/17 at 1900, Until Discontinued, Routine Given 05/15/2017 6:54 PM EST 500 mg dextrose 50% IV syringe 50 mL Given 05/10/2017 6:06 PM EST 50 mLs 50 mL, Intravenous, ONCE, 1 dose, On Sat05/10/17 at 1715, Warning Vesicant/Irritant Medication , Routine dextrose 50% IV syringe 50 mL Given 05/11/2017 2:22 AM EST 50 mLs 50 mL (25 g), Intravenous, ONCE, 1 dose, On 05/11/17 at 0230, Give 50 mL of dextrose 50% Intravenously immediately followed by regular insulin 10 units Intravenously, Routine dextrose 50% IV syringe 50 mL Given 05/11/2017 6:20 PM EST 50 mLs 50 mL (25 g), Intravenous, ONCE, 1 dose, On 05/11/17 at 1745, Give 50 mL of dextrose 50% Intravenously immediately followed by regular insulin 10 units Intravenously, Routine dextrose 50% IV syringe 50 mL Given 05/12/2017 2:50 AM EST 50 mLs 50 mL (25 g), Intravenous, ONCE, 1 dose, On 05/12/17 at 0245, Give 50 mL of dextrose 50% Intravenously immediately followed by regular insulin 10 units Intravenously, Routine dextrose 50% IV syringe 1 dose, Starting on 05/12/17 at 0248, Until Sat05/12/17 at 0250, RAFI GAMA: cabinet override enoxaparin (LOVENOX) injection 40 mg Given 05/10/2017 8:39 PM EST 40 mg 40 mg, Subcutaneous, NIGHTLY, First dose on Sat05/10/17 at 2100, Until Discontinued, Routine fentaNYL 50 mcg/mL multi-dose injection Given 05/10/2017 3:56 PM EST 50 mcg 25-50 mcg, Intravenous, EVERY 5 MIN PRN, Starting on Sat05/10/17 at 1422, Until Sat05/10/17 at 1619, Pain, per unit protocol, - Start dose [...] and verbal order., Angio/IR (Intra-Procedure), Routine Given 05/10/2017 3:45 PM EST 50 mcg Given 05/10/2017 3:38 PM EST 50 mcg gadoterate meglumine (DOTAREM) 0.5 mmol/mL Given 05/13/2017 7:09 PM EST 20 mLs injection 0-3,066 mL 0-3,066 mL (0-20 mL/kg/dose ? 153.3 kg), Intravenous, ONCE PRN, 1 dose, Starting on 05/13/17 at 1830, Until 05/13/17 at 1909, Per Protocol, Radiology Contrast, Routine heparin (Porcine) subcutaneous injection Given 018 8:25 AM EST 5,000 Units 5,000 Units 5,000 Units, Subcutaneous, EVERY 8 HOURS SCHEDULED, First dose on 05/11/17 at 0745, Until Discontinued, Routine Given 05/16/2017 1:34 AM EST 5,000 Units Given 05/15/2017 5:05 PM EST 5,000 Units insulin regular human VIAL injection 10 Given 05/10/2017 6:20 PM EST 10 Units Units 10 Units, Intravenous, ONCE, 1 dose, On Sat05/10/17 at 1715, Routine insulin regular human VIAL injection 10 Given 05/11/2017 2:20 AM EST 10 Units Units 10 Units, Intravenous, ONCE, 1 dose, On 05/11/17 at 0230, Give 50 mL of dextrose 50% Intravenously immediately followed by regular insulin 10 units Intravenously, Routine insulin regular human VIAL injection 10 Given 05/11/2017 6:20 PM EST 10 Units Units 10 Units, Intravenous, ONCE, 1 dose, On 05/11/17 at 1745, Give 50 mL of dextrose 50% Intravenously immediately followed by regular insulin 10 units Intravenously, Routine insulin regular human VIAL injection 10 Given 05/12/2017 3:05 AM EST 10 Units Units 10 Units, Intravenous, ONCE, 1 dose, On Sat05/12/17 at 0245, Give 50 mL of dextrose 50% Intravenously immediately followed by regular insulin 10 units Intravenously, Routine iohexol (OMNIPAQUE) 350 mg/mL solution 0-200 Given 3:09 PM EST 120 mLs mL 0-200 mL, Intravenous, ONCE PRN, 1 dose, Starting on Sat05/15/17 at 1509, Until Sat05/15/17 at 1509, Per Protocol, Warning Vesicant/Irritant Medication , Radiology Contrast, Routine iohexol (OMNIPAQUE) 350 mg/mL solution 6 0 mL Given 05/14/2017 9:25 AM EST 60 mLs 60 mL, Oral, ONCE PRN, 1 dose, Starting on Sat05/14/17 at 0924, Until Sat05/14/17 at 0925, Per Protocol, Warning Vesicant/Irritant Medication , Routine iohexol (OMNIPAQUE) radiology oral prep (50 Given 04/29 12:04 PM EST 240 mLs mL of oral contrast) 240 mL, Oral, ONCE, 1 dose, On Sat05/15/17 at 1215, 8 ounce cup = 240 mL of contrast 3 hours before scan as tolerated. The patient should not eat food or drink any other liquids during the entire period in which they are drinking the contrast. Mix 1 bottle (50 mL) of Omnipaque 350 with 1 liter (1,000 mL) non-carbonated beverage (preferably water). Close cover and shake vigorously and then refrigerate, if desired. Dispose of any excess preparation in a sink. Properly dispose of container., Routine iohexol (OMNIPAQUE) radiology oral prep (50 Given 04/29 1:10 PM EST 240 mLs mL of oral contrast) 240 mL, Oral, ONCE, 1 dose, On Sat05/15/17 at 1315, 8 ounce cup = 240 mL of contrast 2 hours before scan as tolerated. The patient should not eat food or drink any other liquids during the entire period in which they are drinking the contrast. Mix 1 bottle (50 mL) of Omnipaque 350 with 1 liter (1,000 mL) non-carbonated beverage (preferably water). Close cover and shake vigorously and then refrigerate, if desired. Dispose of any excess preparation in a sink. Properly dispose of container., Routine iohexol (OMNIPAQUE) radiology oral prep (50 Given 04/29 2:10 PM EST 240 mLs mL of oral contrast) 240 mL, Oral, ONCE, 1 dose, On Sat05/15/17 at 1415, 8 ounce cup = 240 mL of contrast 1 hours before scan as tolerated. The patient should not eat food or drink any other liquids during the entire period in which they are drinking the contrast. Mix 1 bottle (50 mL) of Omnipaque 350 with 1 liter (1,000 mL) non-carbonated beverage (preferably water). Close cover and shake vigorously and then refrigerate, if desired. Dispose of any excess preparation in a sink. Properly dispose of container., Routine lidocaine (XYLOCAINE) 10 mg/mL (1 %) injection Given 0 05/10/2017 2:45 PM EST 10 mg 10 mg 10 mg, Subcutaneous, ONCE, 1 dose, On Sat05/10/17 at 1445, For use in Interventional Radiology (IR) only for procedure with direct provider supervision and verbal order., Angio/IR (Intra-Procedure), Routine metroNIDAZOLE (FLAGYL) 500 mg in New Bag 05/15/2017 2:20 PM 500 mg 200 mL/hr sodium chloride 0.9% 100 mL EST 500 mg, Intravenous, EVERY 8 HOURS, First dose on Sat05/10/17 at 1415, Until Discontinued, Administer over 30 Minutes, Indication for (Active or Suspected): Anaerobic infection-GI/Intrabdominal New Bag 05/15/2017 6:13 AM EST 500 mg 200 mL/hr New Bag 05/14/2017 9:56 PM EST 500 mg 200 mL/hr metroNIDAZOLE (FLAGYL) tablet 500 mg Given 05/16/2017 8:25 AM EST 500 mg 500 mg, Oral, 3 TIMES DAILY, First dose on Sat05/15/17 at 1745, Until Discontinued, Routine Given 05/15/2017 9:43 PM EST 500 mg midazolam (PF) (VERSED) 1 mg/mL multi-dose Given 05/10/2017 3:56 PM EST 0.5 mg injection 0.5-1 mg 0.5-1 mg, Intravenous, EVERY 3 MIN PRN, Starting on Sat05/10/17 at 1422, Until Sat05/10/17 at 1619, Sleep, - Start dose; 1 mg (Reduce dose to 0.5 mg if history of sedation sensitivity). - Titration dose: 0.5 mg - 1 mg (based on patient response) every 3 minutes PRN to obtain RASS score of -3. Maximum dose: 1 mg per dose, 5 mg/hour. For use in Interventional Radiology (IR) only for procedural sedation with direct provider supervision and verbal order., Angio/IR (Intra-Procedure), Routine Given 05/10/2017 3:46 PM EST 0.5 mg Given 05/10/2017 3:38 PM EST 1 mg ondansetron (ZOFRAN) injection 4-8 mg 4-8 mg, Intravenous, EVERY 8 HOURS PRN, Starting on Sat05/10/17 at 1349, Until Colleen 05/16/17 at 1239, Nausea, Start with 4mg and if ineffective in 30 minutes, give an additional 4mg If multiple antiemetic s are ordered, give ondansetron first. ondansetron (ZOFRAN) tablet 4-8 mg 4-8 mg, Oral, EVERY 8 HOURS PRN, Startin g on Sat05/10/17 at 1349, Until Colleen 05/16/17 at 1239, Nausea, Vomiting, If multiple antiemetics are ordered, use ondansetron first. PO Preferred. If patient unable to take PO, may give IV if ordered. Start with 4mg and if ineffective in 45 minutes, give an add itional 4mg. If unable to take PO, may give IV., Routine pantoprazole (PROTONIX) injection 40 mg Given 05/11/2017 9:11 AM EST 40 mg 40 mg, Intravenous, DAILY, First dose on Sat05/10/17 at 1415, Until Discontinued Given 05/10/2017 6:23 PM EST 40 mg pantoprazole (PROTONIX) injection 40 mg Given 05/14/2017 8:12 AM EST 40 mg 40 mg, Intravenous, DAILY, First dose on 05/11/17 at 1000, Until Discontinued, Use if can't tolerate PO Given 05/13/2017 8:25 AM EST 40 mg Given 05/12/2017 8:50 AM EST 40 mg pantoprazole (PROTONIX) tablet 40 mg Given 05/16/2017 8:25 AM EST 40 mg 40 mg, Oral, DAILY, First dose on 05/11/17 at 1000, Until Discontinued, DO NOT CRUSH OR OPEN, Routine Given 05/15/2017 9:13 AM EST 40 mg sodium chloride 0.9 % flush 5 mL Given 05/16/2017 8:26 AM EST 5 mLs 5 mL, Intravenous, 2 TIMES DAILY, First dose on Sat05/10/17 at 1415, Until Discontinued, Routine Given 05/15/2017 9:00 PM EST 5 mLs Given 05/15/2017 9:13 AM EST 5 mLs sodium chloride 0.9% infusion New Bag 05/10/2017 7:03 PM EST 100 mL/hr 100 mL/hr 100 mL/hr, Intravenous, CONTINUOUS, Starting on Sat05/10/17 at 1715, Until 05/11/17 at 0728 sodium polystyrene (KAYEXALATE) 15 gram/60 mL Given 11:32 AM EST 15 g oral suspension 15 g 15 g, Oral, ONCE, 1 dose, On 05/11/17 at 1000, Routine traMADol (ULTRAM) tablet 50 mg 50 mg, Oral, EVERY 6 HOURS PRN, Starting on 05/13/17 at 0918, Until Colleen 05/16/17 at 1239, Pain, Routine documented in this encounter Active and Recently Administered Medications Times are shown in EST. Scheduled Medication Order 05/14/2017 05/15/2017 05/16/2017 ceFEPime (MAXIPIME) injection 1g (CANCELED) 0148 (Give n - Provider: Vangie Delgado RN)1455 (Given - Provider: Gilma Hutchinson, RN) 0138 (Given - Provider: Dinorah Hutson, RN) 1 g, Intravenous, EVERY 12 HOURS, First dose on Sat05/10/17 at 1415, Until Discontinued, Administer over 5 Minutes, 1. Reconstitute 1000 mg vial of ceFEPime with 10 mL of Sterile Water for Injection. Ag itate until in solution. Resulting matthew ntration is roughly 100 mg/mL. 2. Withdraw full contents of vial into 20 mL syringe. 3. Administer over 5 minutes via slow IV push. Give immediately after prepara tion., Indication for (Active or Suspected): GI/Intra-abdominal ceFEPime (MAXIPIME) injection 2 g (CANCELED) 1411 (Given - Provider: Reyna Méndez RN) 2 g, Intravenous, EVERY 12 HOURS, First dose on Sat05/15/17 at 1415, Until Discontinued, Administer over 5 Minutes, Renally dose adjusted per P&T policy 1. Reconstitute 2000 mg vial of ceFEPime with 10 mL of Sterile Water for Injection. A gitate until in solution. Resulting concentration is roughly 160 mg/mL. 2. Withdraw full contents of vial into 20 mL syringe. 3. Administer over 5 minutes via slo w IV push. Give immediately after prepar ation. , Indication for (Active or Suspected): GI/Intra-abdominal ciprofloxacin (CIPRO) tablet 500 mg 1854 (Given - Provider: Reyna Méndez, RN) 0652 (Given - Provider: Dinorah Hutson , RN) 500 mg, Oral, 2 TIMES DAILY, First dose on Sat05/15/17 at 1900, Until Discontinued, Routine heparin (Porcine) subcutaneous injection 5,000 Units 0 148 (Given - Provider: Vangie Delgado RN)0812 (Given - Provider: Gilma Hutchinson, RN)1718 (Given - Provider: Gilma Hutchinson, RN) 0138 (Given - Provider: Dinorah Hutson , MEET)0913 (Given - Provider: Reyna Méndez RN)1705 (Given - Provider: Reyna Méndez RN) 0134 (Given - Provider: Dinorah Hutson RN)0825 (Given - Provider: Savanna Jj RN) 5,000 Units, Subcutaneous, EVERY 8 HOURS SCHEDULED, First dose on 05/11/17 at 0745, Until Discontinued, Routine iohexol (OMNIPAQUE) radiology oral prep (50 mL of oral contr ast) (COMPLETED) 1204 (Given - Provider: Reyna Méndez RN) 240 mL, Oral, ONCE, 1 dose, 05/15/17 at 1215, 8 ounce cup = 240 mL of contrast 3 hours before scan as tolerated. The patient should not eat food or drink any other liquids during the entire period in which they are drinking the contrast. M ix 1 bottle (50 mL) of Omnipaque 350 with 1 liter (1,000 mL) non-carbonated beverage (preferably water). Close cover and shake vigorously and then refrigerate, if desired. Dispose of any excess preparat ion in a sink. Properly dispose of container., Routine iohexol (OMNIPAQUE) radiology oral prep (50 mL of oral contr ast) (COMPLETED) 1310 (Given - Provider: Reyna Méndez RN) 240 mL, Oral, ONCE, 1 dose, 05/15/17 at 1315, 8 ounce cup = 240 mL of contrast 2 hours before scan as tolerated. The patient should not eat food or drink any other liquids during the entire period in which they are drinking the contrast. M ix 1 bottle (50 mL) of Omnipaque 350 with 1 liter (1,000 mL) non-carbonated beverage (preferably water). Close cover and shake vigorously and then refrigerate, if desired. Dispose of any excess preparat ion in a sink. Properly dispose of container., Routine iohexol (OMNIPAQUE) radiology oral prep (50 mL of oral contr ast) (COMPLETED) 1410 (Given - Provider: Reyna Méndez RN) 240 mL, Oral, ONCE, 1 dose, 05/15/17 at 1415, 8 ounce cup = 240 mL of contrast 1 hours before scan as tolerated. The patient should not eat food or drink any other liquids during the entire period in which they are drinking the contrast. M ix 1 bottle (50 mL) of Omnipaque 350 with 1 liter (1,000 mL) non-carbonated beverage (preferably water). Close cover and shake vigorously and then refrigerate, if desired. Dispose of any excess preparat ion in a sink. Properly dispose of container., Routine iohexol (OMNIPAQUE) radiology oral prep (50 mL of oral contr ast) 1445 (Not Given - Provider: Reyna Méndez RN - Reason: Patient/family refused - Comment: pulmonary function technologist aware.) 240 mL, Oral, ONCE, 1 dose, Sat05/15/17 at 1445, 8 ounce cup = 240 mL of contrast 20 minutes before scan as tolerated. The patient should not eat food or drink any other liquids during the entire period in which they are drinking the contrast . Mix 1 bottle (50 mL) of Omnipaque 350 with 1 liter (1,000 mL) non-carbonated beverage (preferably water). Close cover and shake vigorously and then refrigerate, if desired. Dispose of any excess prepa ration in a sink. Properly dispose of container., Routine metroNIDAZOLE (FLAGYL) 500 mg in sodium chloride 0.9% 100 mL (CANCELED) 0551 (New Bag - Provider: Vangie Delgado RN)0621 (Stopped - Provider: Gilma Hutchinson RN)1500 (New Bag - Provider: Gilma Hutchinson RN)1530 (Stopped - Provider: Gilma Hutchinson RN)2156 (New Bag - Provider: Tiffany Jacobs RN) 0613 (New Bag - Provider: Dinorah Hutson RN)0643 (Stopped - Provider: Dinorah Hutson RN)1420 (New Bag - Provider: Reyna Méndez RN)1450 (Stopped - Provider: Reyna Méndez RN) 500 mg, Intravenous, EVERY 8 HOURS, Firs t dose on Sat05/10/17 at 1415, Until Discontinued, Administer over 30 Minutes, Indication for (Active or Suspected): Anaerobic infection-GI/Intrabdominal 2226 (Stopped - Provider: Dinorah camargo RN) metroNIDAZOLE (FLAGYL) tablet 500 mg 174 5 (Not Given - Provider: Reyna Méndez RN - Reason: See comment - Comment: do not give dose per pharmacy. continue next dose as scheduled)2142 (Given - Provider: Dinorah Hutson RN) 0825 (Given - Provider: Savanna Jj, MEET) 500 mg, Oral, 3 TIMES DAILY, First dose on Sat05/15/17 at 1745, Until Discontinued, Routine pantoprazole (PROTONIX) injection 40 mg(Linked Group 1 ) 0812 (Given - Provider: Gilma Hutchinson RN) 09 (See Alternative - Provider: Reyna Méndez RN) 0825 (See Alternative - Provider: Savanna Jj RN) 40 mg, Intravenous, DAILY, First dose on 05/11/17 at 1000, Until Discontinued, Use if can't tolerate PO pantoprazole (PROTONIX) tablet 40 mg(Linked Group 1) 0 812 (See Alternative - Provider: Gilma Hutchinson RN) 09 (Given - Provider: Reyna Méndez RN) 0825 (Given - Provider: Savanna Jj RN) 40 mg, Oral, DAILY, First dose on Sat at 1000, Until Discontinued, DO NOT CRUSH OR OPEN, Routine sodium chloride 0.9 % flush 5 mL 0812 (Given - Provide r: Gilma Hutchinson RN)2109 (Given - Provider: Everton Gan RN) 09 (Given - Provider: Reyna Méndez RN)2099 (Given - Provider: Dinorah Hutson RN) 08 (Given - Provider: Savanna Jj, MEET) 5 mL, Intravenous, 2 TIMES DAILY, First dose on Sat05/10/17 at 1415, Until Discontinued, Routine PRN Medication Order 05/14/2017 05/15/2017 05/16/2017 iohexol (OMNIPAQUE) 350 mg/mL solution 0-200 mL (COMPLETED) 1509 (Given - Provider: Prcie Wilkinson) 0-200 mL, Intravenous, ONCE PRN, 1 dose, Starting Sat05/15/17 at 1509, Until Sat05/15/17 at 1509, Per Protocol, Warning Vesicant/Irritant Medication , Radiology Contrast, Routine iohexol (OMNIPAQUE) 350 mg/mL solution 60 mL (COMPLETE D) 924 (Given - Provider: Marti Mann) 60 mL, Oral, ONCE PRN, 1 dose, Starting Sat05/14/17 at 0924, Until Sat05/14/17 at 0925, Per Protocol, Warning Vesicant/Irritant Medication , Routine lidocaine (XYLOCAINE) 10 mg/mL (1 %) injection 3 mg 3 mg (0.3 mL), Subcutaneous, ONCE PRN, 1 dose, Starting Sat05/10/17 at 1349, Until Colleen 05/16/17 at 1239, for discomfort with PIV insertion, Routine ondansetron (ZOFRAN) injection 4-8 mg(Linked Group 2) 4-8 mg, Intravenous, EVERY 8 HOURS PRN, Starting Sat05/10/17 at 1349, Until Colleen 05/16/17 at 1239, Nausea, Start with 4mg and if ineffective in 30 minutes, give an additional 4mg If multiple antiemetics are ordered, give ondansetron first. ondansetron (ZOFRAN) tablet 4-8 mg(Linked Group 2) 4-8 mg, Oral, EVERY 8 HOURS PRN, Startin g Sat05/10/17 at 1349, Until Colleen 05/16/17 at 1239, Nausea, Vomiting, If multiple antiemetics are ordered, use ondansetron first. PO Preferred. If patient unabl e to take PO, may give IV if ordered. St art with 4mg and if ineffective in 45 minutes, give an additional 4mg. If unable to take PO, may give IV., Routine sodium chloride 0.9 % flush 5-20 mL 5-20 mL, Intravenous, EVERY 1 MIN PRN, S tarting Sat05/10/17 at 1349, Until Colleen 05/16/17 at 1239, flush, Flush pertains to all indwelling lines. Flush per protocol found in the job aid using the link provided on this medication record., Routine traMADol (ULTRAM) tablet 50 mg 50 mg, Oral, EVERY 6 HOURS PRN, Starting 05/13/17 at 0918, Until Colleen 05/16/17 at 1239, Pain, Routine Linked Groups Order Group 1: pantoprazole (PROTONIX) tablet 40 mgJump to med 40 mg, Oral, DAILY, First dose on Sat at 1000, Until Discontinued
DO NOT CRUSH OR OPEN
Routine Or pantoprazole (PROTONIX) injection 40 mgJump to med 40 mg, Intravenous, DAILY, First dose on 05/11/17 at 1000, Until Discontinued
Use if can't tolerate PO
Group 2: ondansetron (ZOFRAN) tablet 4-8 mgJump to med 4-8 mg, Oral, EVERY 8 HOURS PRN, Startin g 05/10/17 at 1349, Until Colleen 05/16/17 at 1239, Nausea, Vomiting
If multiple antiemetics are ordered, use ondansetron first. PO Preferred . If patient unable to take PO, may give IV if ordered. Start with 4mg and if ineffective in 45 minutes, give an additional 4mg. If unable to take PO, may give IV.
Routine Or ondansetron (ZOFRAN) injection 4-8 mgJump to med 4-8 mg, Intravenous, EVERY 8 HOURS PRN, Starting 05/10/17 at 1349, Until Colleen 05/16/17 at 1239, Nausea
Start with 4mg and if ineffective in 30 minutes, give an additional 4mg If mu ltiple antiemetics are ordered, give ond ansetron first.
documented in this encounter Care Teams Lode Miner Blasting Relationship Specialty Start Date End Date Odalys Laird MD PCP - General Internal Medicine 04/27/[address] [place] [address] documented as of this encounter
--- OUTSIDE RECORDS SUMMARY | 2022-01-19 01:24 | XMS_ITS | Encounter Summary ---
:1955 Author Organization [facility] [place] [address] Care Team Providers Name Role Phone Odalys Laird MD Primary Care Provider Reason for Visit Reason Comments Other Encounter Details Date Type Department Care Team Description 05/06/2017 Telephone General Surgery at [facility] [place] [address] Social History Tobacco Use Types Packs/Day [...] Telephone Encounter - Matilda Patel RN - 05/06/2017 11:35 AM EST Mr. Urena's daughter, Agustin, calls to report the stopcock on her father's LATOYA is broken and that the drainage is coming out of the stopcock rather than into the drain. They decline an appt here for eval, stating it is too far, and pt cannot handle the trip, cannot walk, etc. They prefer not to go [facility] ED, which is much closer to them. Pt is not having any change in pain, no fevers or other concerns, not red around the drain site. I called [facility] - they will send a nurse out to check on the pt and his drain. I am sending them 3 new stopcocks overnight via [employer]. Discussed that if [facility] cannot get the drain working or if pt has any new pain, fevers, chills, or other changes, then she needs to bring him to be evaluated. She agrees with the plan. documented in this encounter Plan of Treatment Not on filedocumented as of this encounter Visit Diagnoses Not on filedocumented in this encounter Care Teams Reed Maker Relationship Specialty Start Date End Date Odalys Laird MD PCP - General Internal Medicine 04/27/[address] [place] [address] documented as of this encounter
--- OUTSIDE RECORDS SUMMARY | 2022-01-19 01:24 | XMS_ITS | Encounter Summary ---
:1955 Author Organization [facility] [place] [address] Care Team Providers Name Role Phone Odalys Laird MD Primary Care Provider Reason for Referral Diagnostic Test (Routine) - Closed Specialty Diagnoses / Procedures Referred By Contact Refer red To Contact Radiology Diagnoses Retroperitoneal abscess Julio C Kincaid MD [facility] Rad Ct Scan Procedures CT Chest Abdomen Pelvis w Contrast (Generic) [facility] DR Moshe Estes [facility] [place] [address] [place] [address] Referral ID Status Reason Start Date Expiration Date Visits V isits Requested Authorized [id number] Closed Specialty 05/06/2017 07/04/2017 1 1 Service Requested Reason for Visit Auth/Cert Specialty Diagnoses / Procedures Referred By Contact Refer red To Contact Diagnoses Intra-abdominal abscess NEW RETROPERITONEAL ABCESS AND ABDOMINAL ABCESS Procedures DEVAN IPI Referral ID Status Reason Start Date Expiration Date Visits Requ ested Visits Authorized [id number] 1 1 Encounter Details Date Type Department Care Team Description 05/10/[address] Scan [place] [facility] [place] Gilson Mcgee, Retroperitoneal abscess [facility] MD [facility] [id number] GENERAL SURGERY [phone] [place] [address] Social History Tobacco Use Types [...] for Pain for up to 7 days. lisinopril Take 40 mg by mouth 0 05/16 (PRINIVIL;ZESTRIL) 40 mg daily. Tablet sulfamethoxazole-trimethop Take 2 tablets by 56 tablet 0 05/16/2017 rim (BACTRIM DS) 800-160 mouth 2 times daily mg Tablet for 14 days. documented as of this encounter Plan of Treatment Not on filedocumented as of this encounter Procedures Procedure Name Priority Date/Time Associated Diagnosis Comme nts CT CHEST ABDOMEN Routine 05/10/2017 11:04 Retroperitoneal absc ess Results for this PELVIS W CONTRAST AM EST procedure are in (GENERIC) the results section. documented in this encounter Results CT Chest Abdomen Pelvis w Contrast (Generic) (05/10/2017 11:04 AM EST) Anatomical Region Laterality Modality Abdomen, Pelvis Computed Tomography Specimen (Source) Anatomical Location Collection Method / Collectio n Time Received Time / Laterality Volume Impressions 05/10/2017 12:19 PM EST 1. ??Mild interval enlargement of a large left retroperitoneal abscess contiguous with enlarging left psoas collection. A pigtail catheter remains satisfactorily centered within the retroperitoneal rosibel ection. 2. ??Interval organization and developme nt of a 23 cm collection in the left paracolic gutter likely a separate absce ss. 3. ??New air within the L2-L3 interverte bral disc which is at the level of the left psoas abscess, consider MR to evalu ate for discitis-osteomyelitis. 4. ??Trace residual left pleural fluid a nd left basilar atelectasis. 5. ??Moderate splenomegaly. Discussed with Dr. Kincaid by Dr. Sundeep oh telephone on May 10, 2017 at 1130am. Preliminary report signed by: Jorge Urbano at 05/10/2017 11:53 AM I have personally reviewed the image(s) and the residents interpretation and agree with the findings, Chandrika James at 12:19 PM Narrative 05/10/2017 12:19 PM EST EXAMINATION: CT CHEST ABDOMEN PELVIS W CONTRAST (GENERIC) CLINICAL HISTORY: Eval progression of re troperitoneal abscess TECHNIQUE: Helical CT of the chest, abdo men, and pelvis was performed following intravenous administration of 120 ml of Visipaque 320. Oral contrast was administered. COMPARISON: CT abdomen and pelvis 2017 FINDINGS: Chest: Lungs and large airways: Improved aerati on at the left lung base with small amount of residual bandlike atelectasis and trace left pleural fluid. Pleura: Trace residual left pleural flui d. No air within the pleural fluid. Heart/vasculature: Heart size is normal. Normal caliber of the thoracic aorta. Lymph nodes/Mediastinum/Julia: No patholo gically enlarged lymph nodes. Abdomen/pelvis: Liver: Fanta's lobe. No lesion. Bile ducts: Nondilated. Gallbladder: Cholelithiasis. Contracted gallbladder. Pancreas: Normal attenuation without gato jany dilatation. Spleen: Displaced anteriorly by the left retroperitoneal collection. Splenomegaly measuring 19 cm cranial cau annalisa dimension. Adrenals: Inflammatory changes surroundi ng the left adrenal gland and mild anterior displacement by the left retrop eritoneal collection. Punctate calcification in the medial limb of the right adrenal gland. Kidneys: Anterior displacement of the le ft kidney by the left retroperitoneal collection. Normal enhancement of the le ft kidney. Lobulated contours of both kidneys. No urinary collecting system di latation. Punctate nonobstructing left lower pole calculus. Vasculature: No aneurysm. Minimal athero sclerosis. Splenic, superior mesenteric and portal veins are patent. Lymph Nodes: ??No pathologically enlarge d lymph nodes. Bowel: Nondilated, no wall thickening. C olonic diverticulosis. There is a fat plane between the colon and the left par acolic collection. No extravasated enteric contrast. Of note the enteric co ntrast was not reached the descending colon. Peritoneum and mesentery: A left posteri or approach pigtail catheter is satisfactorily positioned and the middle of the left retroperitoneal collection which has increased in size measuring 7. 5 x 11.0 x 19.7 cm, previously measuring 6.0 x 11.2 x 17.6 cm. Multiple foci of a ir persists within the. This is contiguous with an enlarging left psoas collection. Where there was previously inflammatory changes and phlegmon along the left flank there is a newly organized 11.7 x 10.0 x 23.3 cm collecti on extending along the left paracolic gutter and extending anteriorly and infe riorly to the region of the left inguinal canal. Abdominal wall: Due to the patient's abd ominal girth and the percutaneous entry site of the left sided pigtail drain is not seen. Urinary Bladder: Normal. Reproductive organs: Prostate is not enl arged. Osseous structures: New air within the L 2-L3 disc space. No endplate irregularity. However this disc space is in continuity with the abnormal left psoas muscle. Procedure Note Chandrika James MD - 05/10/2017 EXAMINATION: CT CHEST ABDOMEN PELVIS W CONTRAST (GENERIC) CLINICAL HISTORY: Eval progression of re troperitoneal abscess TECHNIQUE: Helical CT of the chest, abdo men, and pelvis was performed following intravenous administration of 120 ml of Visipaque 320. Oral contrast was administered. COMPARISON: CT abdomen and pelvis 2017 FINDINGS: Chest: Lungs and large airways: Improved aerati on at the left lung base with small amount of residual bandlike atelectasis and trace left pleural fluid. Pleura: Trace residual left pleural flui d. No air within the pleural fluid. Heart/vasculature: Heart size is normal. Normal caliber of the thoracic aorta. Lymph nodes/Mediastinum/Julia: No patholo gically enlarged lymph nodes. Abdomen/pelvis: Liver: Fanta's lobe. No lesion. Bile ducts: Nondilated. Gallbladder: Cholelithiasis. Contracted gallbladder. Pancreas: Normal attenuation without gato jany dilatation. Spleen: Displaced anteriorly by the left retroperitoneal collection. Splenomegaly measuring 19 cm cranial cau annalisa dimension. Adrenals: Inflammatory changes surroundi ng the left adrenal gland and mild anterior displacement by the left retrop eritoneal collection. Punctate calcification in the medial limb of the right adrenal gland. Kidneys: Anterior displacement of the le ft kidney by the left retroperitoneal collection. Normal enhancement of the le ft kidney. Lobulated contours of both kidneys. No urinary collecting system di latation. Punctate nonobstructing left lower pole calculus. Vasculature: No aneurysm. Minimal athero sclerosis. Splenic, superior mesenteric and portal veins are patent. Lymph Nodes: No pathologically enlarged lymph nodes. Bowel: Nondilated, no wall thickening. C olonic diverticulosis. There is a fat plane between the colon and the left par acolic collection. No extravasated enteric contrast. Of note the enteric co ntrast was not reached the descending colon. Peritoneum and mesentery: A left posteri or approach pigtail catheter is satisfactorily positioned and the middle of the left retroperitoneal collection which has increased in size measuring 7. 5 x 11.0 x 19.7 cm, previously measuring 6.0 x 11.2 x 17.6 cm. Multiple foci of a ir persists within the. This is contiguous with an enlarging left psoas collection. Where there was previously inflammatory changes and phlegmon along the left flank there is a newly organized 11.7 x 10.0 x 23.3 cm collecti on extending along the left paracolic gutter and extending anteriorly and infe riorly to the region of the left inguinal canal. Abdominal wall: Due to the patient's abd ominal girth and the percutaneous entry site of the left sided pigtail drain is not seen. Urinary Bladder: Normal. Reproductive organs: Prostate is not enl arged. Osseous structures: New air within the L 2-L3 disc space. No endplate irregularity. However this disc space is in continuity with the abnormal left psoas muscle. IMPRESSION 1. Mild interval enlargement of a large left retroperitoneal abscess contiguous with enlarging left psoas collection. A pigtail catheter remains satisfactorily centered within the retroperitoneal rosibel ection. 2. Interval organization and development of a 23 cm collection in the left paracolic gutter likely a separate absce ss. 3. New air within the L2-L3 intervertebr al disc which is at the level of the left psoas abscess, consider MR to evalu ate for discitis-osteomyelitis. 4. Trace residual left pleural fluid and left basilar atelectasis. 5. Moderate splenomegaly. Discussed with Dr. Kincaid by Dr. Sundeep oh telephone on May 10, 2017 at 1130am. Preliminary report signed by: Jorge Urbano at 05/10/2017 11:53 AM I have personally reviewed the image(s) and the residents interpretation and agree with the findings, Chandrika James at 12:19 PM Gilson Mcgee MD IMG CT ORDERABLES documented in this encounter Visit Diagnoses Diagnosis Retroperitoneal abscess Other retroperitoneal abscess documented in this encounter Administered Medications Inactive Administered Medications - up to 3 most recent administrations Medication Order MAR Action Action Date Dose Rate Site iodixanol (VISIPAQUE) 320 mg Given 05/10/2017 11:06 AM EST 120 m Ls iodine/mL injection 0-200 mL 0-200 mL, Intravenous, ONCE PRN, 1 dose, Starting on Sat05/10/17 at 1106, Until Sat05/10/17 at 1106, Per Protocol, Radiology Contrast, Routine documented in this encounter Care Teams Marketing Technologist Relationship Specialty Start Date End Date Odalys Laird MD PCP - General Internal Medicine 04/27/[address] [place] [address] documented as of this encounter
--- OUTSIDE RECORDS SUMMARY | 2022-01-19 01:24 | XMS_ITS | Encounter Summary ---
:1955 Author Organization [facility] Address [address] [place] [address] Care Team Providers Name Role Phone Odalys aLird MD Primary Care Provider Encounter Details Date Type Department Care Team Description 04/27/2017 Hospital Encounter [place] [address] Social History Tobacco Use Types Packs/Day Years Used Date Never Assessed Sex Assigned at Date Recorded Not on file documented as of this encounter Medications at Time of Discharge Medication Sig Dispensed Refills Start Date End Date acetaminophen (TYLENOL) Take 2 tablets by 30 tablet 1 05/0405/10/2017 325 mg Tablet mouth every 6 hours. sulfamethoxazole-trimethop Take 2 tablets by 56 tablet 0 05/16/2017 rim (BACTRIM DS) 800-160 mouth 2 times daily mg Tablet for 14 days. documented as of this encounter Plan of Treatment Not on filedocumented as of this encounter Procedures Procedure Name Priority Date/Time Associated Diagnosis Comme nts REQUEST FOR 2ND STAT 04/27/2017 6:38 PM Result s for this READ CT ABDOMEN AND EST procedur e are in PELVIS the results section. documented in this encounter Results Request For 2nd Read CT Abdomen & Pelvis (04/27/2017 6:38 PM EST) Anatomical Region Laterality Modality Abdomen, Pelvis SO Specimen (Source) Anatomical Location Collection Method / Collectio n Time Received Time / Laterality Volume Impressions 04/27/2017 7:49 PM EST Large retroperitoneal fluid collection on the left, inseparable from the left iliopsoas muscle, with variable attenuat ion ranging from approximately 0-22 Hounsfield units, and containing tiny fo ci of air, displacing the left kidney ventrally. Question infection of a retro peritoneal hematoma. Narrative 04/27/2017 7:49 PM EST EXAMINATION: ??REQUEST FOR 2ND READ CT ABDOMEN AND PELVIS CLINICAL HISTORY: ??? RP abscess vs. nec rotic tumor; What Modality is the exam? CT Scan; Body Part (please add comments as necessary): abdomen/ pelvis; I believe a reinterpretation of this exam may alter care of Patient. Yes TECHNIQUE: Helical CT of the abdomen and pelvis was performed without intravenous contrast at [facility] on 04/27/2017 at 1325 hours. COMPARISON: ??None FINDINGS: This examination is limited by body habi tus, blurring from respiratory motion and the absence of intravenous contrast. Lung bases: Grossly clear. Liver: Normal size and attenuation witho ut lesions. Bile ducts: Nondilated. Gallbladder: No calcified gallstones. No rmal caliber wall. Pancreas: Normal attenuation without gato jany dilatation. Spleen: Normal. Adrenals: Normal. Right kidney: Slightly lobular contour. Tiny nonobstructing calculus on series 3 image 45. Left kidney: Tiny nonobstructing lower p ole calculus on series 3 image 57. There is a large retroperitoneal fluid c ollection displacing the left kidney ventrally, including mass effect/distort ion of the left renal contour, but a fat plane between the kidney and the collect ion, see for example series 3 image 44. A fat plane can be generally identified along the length of the dorsal margin of the left kidney and the collection, see for example series 6 image 55. The spleen is also displaced ventrally. Predominantly at the superior and ventra l margins of this collection are tiny foci of air. This collection is inseparable from the iliopsoas muscle and has areas of low attenuation, as low as 0 Hounsfield unit s, but other areas of higher attenuation, up to 22 Hounsfield units. Vasculature: Normal caliber vasculature. Lymph Nodes: Ventral and lateral to the collection, mildly prominent lymph nodes. Bowel: Colonic diverticula without findi ngs for diverticulitis. No bowel wall to dilatation or appreciable wall thickenin g. Peritoneum and mesentery: No no intraper itoneal fluid collection or free air. Abdominal wall: Normal. Urinary Bladder: Contracted, otherwise u nremarkable. Reproductive organs: Normal. Osseous structures: No suspicious lesion s. Procedure Note Aylin Up MD - 04/27/2017Formatt ing of this note might be different from the original. EXAMINATION: REQUEST FOR 2ND READ CT ABD OMEN AND PELVIS CLINICAL HISTORY: ? RP abscess vs. necro tic tumor; What Modality is the exam? CT Scan; Body Part (please add comments as necessary): abdomen/ pelvis; I believe a reinterpretation of this exam may alter care of Patient. Yes TECHNIQUE: Helical CT of the abdomen and pelvis was performed without intravenous contrast at [facility] on 04/27/2017 at 1325 hours. COMPARISON: None FINDINGS: This examination is limited by body habi tus, blurring from respiratory motion and the absence of intravenous contrast. Lung bases: Grossly clear. Liver: Normal size and attenuation witho ut lesions. Bile ducts: Nondilated. Gallbladder: No calcified gallstones. No rmal caliber wall. Pancreas: Normal attenuation without gato jany dilatation. Spleen: Normal. Adrenals: Normal. Right kidney: Slightly lobular contour. Tiny nonobstructing calculus on series 3 image 45. Left kidney: Tiny nonobstructing lower p ole calculus on series 3 image 57. There is a large retroperitoneal fluid c ollection displacing the left kidney ventrally, including mass effect/distort ion of the left renal contour, but a fat plane between the kidney and the collect ion, see for example series 3 image 44. A fat plane can be generally identified along the length of the dorsal margin of the left kidney and the collection, see for example series 6 image 55. The spleen is also displaced ventrally. Predominantly at the superior and ventra l margins of this collection are tiny foci of air. This collection is inseparable from the iliopsoas muscle and has areas of low attenuation, as low as 0 Hounsfield unit s, but other areas of higher attenuation, up to 22 Hounsfield units. Vasculature: Normal caliber vasculature. Lymph Nodes: Ventral and lateral to the collection, mildly prominent lymph nodes. Bowel: Colonic diverticula without findi ngs for diverticulitis. No bowel wall to dilatation or appreciable wall thickenin g. Peritoneum and mesentery: No no intraper itoneal fluid collection or free air. Abdominal wall: Normal. Urinary Bladder: Contracted, otherwise u nremarkable. Reproductive organs: Normal. Osseous structures: No suspicious lesion s. IMPRESSION Large retroperitoneal fluid collection o n the left, inseparable from the left iliopsoas muscle, with variable attenuat ion ranging from approximately 0-22 Hounsfield units, and containing tiny fo ci of air, displacing the left kidney ventrally. Question infection of a retro peritoneal hematoma. Jaspreet Alberts MD [facility] OUTSIDE INTERPRETATION O RDERABLES documented in this encounter Visit Diagnoses Not on filedocumented in this encounter Care Teams Electrical Power Station Technician Relationship Specialty Start Date End Date Odalys Laird MD PCP - General Internal Medicine 04/27/[address] [place] [address] [address] [place] [address] documented as of this encounter
--- OUTSIDE RECORDS SUMMARY | 2022-01-19 01:24 | XMS_ITS | Encounter Summary ---
:1955 Author Organization [facility] [place] [address] Care Team Providers Name Role Phone Odalys Laird MD Primary Care Provider Encounter Details Date Type Department Care Team Description 05/05/2017 Telephone General Surgery at [facility] Meir Cook MD [facility] [place] [address] GENERAL SURGERY [phone] [place], [place] [address] (Wo rk) Social History Tobacco [...] this encounter Miscellaneous Notes Telephone Encounter - Meir Cook MD - 05/05/2017 5:08 PM EST Called by patients daughter who is concerned about decreased drain output. Drain put out 30 cc pus last night and then another 30cc this AM. Since that time minimal output and some warmth around the drain No fevers, no chills, no n/v, no erythema around drain, drain is holding suction. VNA there earlier and not concerned. I told her to flush with 10cc salin and strip the drain. She was comfortable doing this herself. I instructed her that if there are any new fevers, chills, increased pain or erythema to call back and let us know. documented in this encounter Plan of Treatment Not on filedocumented as of this encounter Visit Diagnoses Not on filedocumented in this encounter Care Teams Study Abroad Coordinator Relationship Specialty Start Date End Date Odalys Laird MD PCP - General Internal Medicine 04/27/[address] [place] [address] [address] [place] [address] documented as of this encounter
--- OUTSIDE RECORDS SUMMARY | 2022-01-19 01:24 | XMS_ITS | Encounter Summary ---
:1955 [place] [address] Care Team Providers Name Role Phone Odalys Laird MD Primary Care Provider Encounter Details Date Type Department Care Team Description 05/10/2017 Orders Only Radiology at [facility] Seamus Spivey MD [facility] [place] [address] RADIOLOGY DEPT [phone] [place] [id number] (Wo rk) Social History Tobacco Use Types [...] documented as of this encounter Miscellaneous Notes Addendum Note - Seamus Spivey MD - 05/10/2017 5:03 PM EST Addended by: SEAMUS SPIVEY on: 05/10/2017 05:03 PM Modules accepted: Orders documented in this encounter Plan of Treatment Not on filedocumented as of this encounter Visit Diagnoses Diagnosis Abscess Cellulitis and abscess of unspecified si te documented in this encounter Care Teams Tube Builder Airplane Relationship Specialty Start Date End Date Odalys Laird MD PCP - General Internal Medicine 04/27/[address] [place] [address] documented as of this encounter
--- OUTSIDE RECORDS SUMMARY | 2022-01-19 01:24 | XMS_ITS | Encounter Summary ---
:1955 Author Organization [place] [address] Care Team Providers Name Role Phone Odalys Laird MD Primary Care Provider Reason for Referral Diagnostic Test (Routine) - Closed Specialty Diagnoses / Procedures Referred By Contact Refer red To Contact Radiology Diagnoses Retroperitoneal abscess Julio C Kincaid MD [facility] Rad Ct Scan Procedures CT Chest Abdomen Pelvis w Contrast (Generic) [facility] [place] [address] [place] [address] Referral ID Status Reason Start Date Expiration Date Visits V isits Requested Authorized [id number] Closed Specialty 05/06/2017 07/04/2017 1 1 Service Requested Reason for Visit Reason Comments Mass Auth/Cert Specialty Diagnoses / Procedures Referred By Contact Refer red To Contact Diagnoses Retroperitoneal abscess Procedures DEVAN IPI Referral ID Status Reason Start Date Expiration Date Visits Requ ested Visits Authorized [id number] 1 1 Encounter Details Date Type Department Care Team Description 04/27/2017 - [place] [id number] Jaspreet Marroquin MD [facility] [place] [address] Retroperitoneal abscess; 05/04/2017 Encounter [facility] Gilson Mcgee MD [facility] [place] [address] Sepsis, due to unspecified organism; Hospital Personal history of tobacco use, [place] [address] Social History Tobacco Use Types Packs/Day Years Used Date Former Smoker Cigarettes 4 22 04/28/1968 - 1 Smokeless Tobacco: Former User Chew Q uit: 03/24/2017 Tobacco Cessation: Counseling Given: Yes Comments: 1 can/ day tobacco chew Alcohol [...] Sign Reading Time Taken Comments Blood Pressure 137/89 05/04/2017 7:30 AM EST Pulse 97 05/02/2017 11:35 AM EST Temperature 36.8 ??C (98.2 ??F) 05/04/2017 7:30 AM EST Respiratory Rate 19 05/04/2017 7:30 AM EST Oxygen Saturation 96% 05/04/2017 7:30 AM EST Inhaled Oxygen Concentration - - Weight 155.8 kg (343 lb 7.6 oz) 05/03/2017 4:47 AM EST Height 177.5 cm (5' 9.9) 04/28/2017 12:05 AM EST Body Mass Index 49.42 04/28/2017 12:05 AM EST documented in this encounter Discharge Summaries Gilma Willard MD - 05/01/2017 2:53 PM EST Images from the original note were not included. Community Surgery Inpatient - Discharge Summary Patient Name: Adamaris Urena Patient Age: 61 y.o. : 1955 Attending Physician: Gilson Mcgee MD Date of Admission: 04/27/2017 Date of Discharge: 05/04/2017 Diagnosis: Active Hospital Problems Diagnosis ??? Retroperitoneal abscess Resolved Hospital Problems Diagnosis Date Resolved No resolved problems to display. Incidental Findings: cortical thinning on chest CT with ?pathlogic rib fractures Operations and Procedures: IR drain placement: 04/27/17 History of Present Illness: Patient states that he describes feeling like shit since Thanksgiving.Describes left sided abdominal, back, flank and groin pain since that time all of which have been worsening. Has had nausea and emesis and has not been able to tolerate much PO. Unsure if he has had fevers or chills. He endorses a 40lb weight loss. Denies any trauma preceding this. States he was concerned about his groin/testicular pain and saw his PCP a few weeks ago. He was referred to a Urologist who was concerned about torsion as the patient reports he often gets twisted testicles. An orchiopexywas therefore performed about 2 weeks ago- his symptoms did not improve. He also underwent some injec tion of his left hip for continued symptoms a few days after his surgery, which did not improve his symptoms either. Secondary to continued pain he went to his local ED. Labs revealed leukocytosis and dehydration. A CT scan was performed (without contrast) that revealed a very large retroperitoneal dense fluid collection, likely an abscess vs. hematoma. Hospital Course: Adamaris Urena is a 61 y.o. male who was admitted on 04/27/2017 for management of a large retroperitoneal abscess. IR drain placement on HD1 immediately aspirated 450cc purulent material with another 600cc draining in the following 24 hr period. Following drain placement he had a SIRS response, which is an expected physiologic response to drain placement into an abscess cavity. He was started on cefepime and flagyl. By HD2 he had resolution of SIRS reponse. His pain was controlled with oral pain medications. On HD 3 bowel function returned. He was started on a general diet, which he tolerated. Repeat CT scan on HD4 continued to show a fluid collection. During this period, he was intermittently having difficulty with the IR drain holding suction. On HD6 he was taken again to IR for replacement of the IR drain with a larger caliber tube, which resolved the issue. He was also transitioned to oral Bactrim in anticipation of home-going. Prior to discharge on HD7, Adamaris Urena was afebrile, with stable vital signs. He was discharged to home in stable condition. Vital Signs Last value Range last 24hrs Temperature Temp: 36.8 ??C (98.2 ??F) Temp: [36.4 ??C (97.5 ??F)-37.4 ??C (99.3 ??F)] Heart Rate Heart Rate: 97 Heart Rate: -- Blood Pressure BP: 137/89 BP: (108-146)/(68-89) Respiratory Rate Resp: 19 Resp: [19-20] SpO2 SpO2: 96 % SpO2: [87 %-99 %] Pertinent Lab Data: Recent Labs 05/04/17 0736 05/03/17 0439 05/02/17 0550 WBC 11.9* 14.0* 17.0* HGB 10.3* 10.0* 10.2* HCT 32.2* 31.7* 32.1* PLATELET 348 355 381* Recent Labs 05/04/17 0736 05/03/17 0956 05/02/17 0550 NA 132* 133* 132* K 4.1 4.0 4.1 CL 95* 96* 97* CO2 23 21* 21* BUN 13 16 18 CREATININE 1.20 1.27 1.30 GLUCOSE 113 113 100 CALCIUM 8.6 8.6 8.8 Physical Exam: General: NAD, resting comfortably HEENT: anicteric sclerae CVS: RRR, no m/r/g Pulm: CTAB b/l Abd: obese, soft, nontender Back: left flank drain to bulb suction, draining purulent material : Skin: warm, dry Ext: no c/c/e, cap refill <2sec Neuro: CN 2-12 grossly intact, nonfocal,moving all four extremities spontaneously Imaging: Ct Abdomen & Pelvis W Contrast Addendum Date: 04/30/2017 ADDENDUM #1 There are enlarged portacaval and common hepatic lymph nodes in the right upper quadrant, each measuring approximately 17 mm in short axis. These are nonspecific however can be enlarged with chronic hepatocellular disease and clinical correlation is needed. ORIGINAL REPORT EXAMINATION: CT ABDOMEN AND PELVIS W CONTRAST CLINICAL HISTORY: s/p IR drain for left retroperitoneal abscess. Would now appreciatescan to determine etiology of abscess not that the collection is decompressed. PO and IV contrast. TECHNIQUE: Helical CT of the abdomen and pelvis was performed following the intravenous administrationof contrast. 120 cc of Omnipaque 350 was [...] of the pigtail drain into the left retrocruralperitoneal abscess. The pigtail is located in the subdiaphragmatic left upper quadrant. Decreased size of the abscess, currently 6 x 11.2 x 17.6 cm, previously 11.6 x 14 x 21 cm. As before, the collection is contiguous with the left psoas muscle. The collection slightly displaces the left kidney anteri ismael, less than on prior exam. There is residual left retroperitoneal fat stranding extending to theinferior pelvis. Abdominal wall: Foci of air in the right lower anterior abdominal wall likely related to injection. Urinary Bladder: Decompressed. Reproductive organs: Normal. Osseous structures: No cole spicious lesions. Nondisplaced the lateral right 10th rib fracture. Along the anterior aspect of theleft 11th rib, there is an area of cortical thinning without discrete cortical break. IMPRESSION: 1.Interval decrease in size of left retroperitoneal abscess [...] findings, Loraine Jesus at 04/30/2017 4:[address] Guided Drain Retroperitoneal Abscess Result Date: 04/27/2017 IR PROCEDURE NOTE : [...] pelvis was performed without intravenous contrast at [facility] on 04/27/2017 at 1325 hours. COMPARISON: None [...] time as documented by the IR Nurse. Condition at discharge: Stable Mental Status: Awake and alert, oriented x 3 Medications: Your Medications Notice You have not been prescribed any medications. Disposition: home VNA: Yes Agency name and contact information: [facility]AS Phone: Patient location post discharge: home Responsible MD post discharge contact info: PCP & Dr Mcgee Allergies: No Known Allergies Outpatient Services/Studies: No discharge procedures on file. Instructions Given to Patient at Discharge: Patient Instructions [facility] Department of General Surgery Discharge Instructions CALL YOUR PHYSICIAN'S OFFICE IF: ??? You have a fever greater than 101 degrees Farenheit (38.3C) within one month of your surgery. ??? You have worsening pain, not controlled with your pain medication. ??? You develop redness, swelling, or new drainage from your wound. ??? You drain stops holding suction. Medications: [x] Pain Control [x] Non-narcotic pain medication - We recommend with tylenol 650mg every 6 hours. - Do not take more than 4,000mg (4g) of tylenol in 24hours. [x] Antibiotics - You have been prescribed sulfamethoxazole-trimethoprim (BACTRIM DS) 800-160 mg, twice per day for14 days to treat your retroperitoneal infection. [x] Other Medication(s) - You may resume your home medications. Driving Restrictions: - No driving if you are too sore from surgery to enter or exit your vehicle comfortably, or if you are too sore to easily check your blind spot. Shower: - It is ok to shower. You can shower per usual routine and let soapy water run over your drain site. Pat dry with a clean, dry towel. Do not submerge the wound under water (no swimming or soaking) until 48 hours after drain removal. Diet: [x] You have been cleared to resume your regular diet - We recommend eating a regular healthy diet (ie; fresh fruits, vegetables and fiber-containing foods will assist in wound healing,) Activity: - It is normal to feel tired after surgery/hospitalization. Be as active as tolerated as this will improve recovery and prevent blood clots. -We recommend taking several slow, short walks each day for the first two weeks, and gradually increase your distance. We recommend at least 4 times a day. Lines/Drains/Tubes: [x] You are being discharged with a left flank drain. Please see the multidisciplinary instructions below for details Who to call? If you have concerns or questions: - During the day, it is best to call the General Surgery Clinic to speak with the Surgery nurses. The number is [phone]. - During the night or weekends call the [facility] coordinate measuring machine operator at [phone] and ask to speak to the surgery resident traffic control operator for general surgery. Please note: Your surgeon may not be Painting Trades Worker, especially during the night or on weekends, so be ready to describe yourself and your surgery when you call. Follow up appointments: No future appointments. Dr. Mcgee would like to see you back in 1 week. [x] A request for a follow-up appointment has been made and you should receive information via phone/mail in the next week. If you do not hear anything, please call the clinic at [phone] to confirm or reschedule. If you need a prior authorization, please call the General Surgery Clinic nurses [phone] for prior authorizations assistance General Instructions INTERVENTIONAL RADIOLOGY DRAIN CARE INSTRUCTIONS [...] stopcock. 4. Inject saline per MD order, usually 3-5 cc's. 5. Re-attach the tubing with the bulb [...] daily with the syringes supplied to you. When to call the Interventional Radiology Department: Please call with any questions or concerns. Ifit is during regular office hours, please call [phone]. If it is after regular office hours, oron weekends or holidays, please call [phone] and ask to speak to the [place] Farmer on callfor Interventional Radiology. You have received medication during your procedure to help lesson anxiety and keep you comfortable.These medications affect judgement and reaction time. We recommend that you do not drive, operate equipment, sign any important documents, or smoke unattended [...] Amount (per drain; in 24 hours) Signed: Gilma Willard MD 05/04/2017 Primary [place] Physician: Odalys Laird MD [address] / [facility] [id number] documented in this encounter Discharge Instructions Discharge InstructionsMacy Velázquez RN - 04/27/2017 11:24 PM EST Images from the original note [...] stopcock. 4. Inject saline per MD order, usually 3-5 cc's. 5. Re-attach the tubing with the bulb [...] daily with the syringes supplied to you. When to call the Interventional Radiology Department: Please call with any questions or concerns. Ifit is during regular office hours, please call [phone]. If it is after regular office hours, oron weekends or holidays, please call [phone] and ask to speak to the [place] Farmer on callfor Interventional Radiology. You have received medication during your procedure to help lesson anxiety and keep you comfortable.These medications affect judgement and reaction time. We recommend that you do not drive, operate equipment, sign any important documents, or smoke unattended [...] Amount (per drain; in 24 hours) Patient InstructionsGilma Willard MD - 05/03/2017 5:10 PM EST [facility] Department of General Surgery Discharge Instructions CALL YOUR PHYSICIAN'S OFFICE IF: ??? You have a fever greater than 101 degrees Farenheit (38.3C) within one month of your surgery. ??? You have worsening pain, not controlled with your pain medication. ??? You develop redness, swelling, or new drainage from your wound. ??? You drain stops holding suction. Medications: [x] Pain Control [x] Non-narcotic pain medication - We recommend with tylenol 650mg every 6 hours. - Do not take more than 4,000mg (4g) of tylenol in 24hours. [x] Antibiotics - You have been prescribed sulfamethoxazole-trimethoprim (BACTRIM DS) 800-160 mg, twice per day for14 days to treat your retroperitoneal infection. [x] Other Medication(s) - You may resume your home medications. Driving Restrictions: - No driving if you are too sore from surgery to enter or exit your vehicle comfortably, or if you are too sore to easily check your blind spot. Shower: - It is ok to shower. You can shower per usual routine and let soapy water run over your drain site. Pat dry with a clean, dry towel. Do not submerge the wound under water (no swimming or soaking) until 48 hours after drain removal. Diet: [x] You have been cleared to resume your regular diet - We recommend eating a regular healthy diet (ie; fresh fruits, vegetables and fiber-containing foods will assist in wound healing,) Activity: - It is normal to feel tired after surgery/hospitalization. Be as active as tolerated as this will improve recovery and prevent blood clots. -We recommend taking several slow, short walks each day for the first two weeks, and gradually increase your distance. We recommend at least 4 times a day. Lines/Drains/Tubes: [x] You are being discharged with a left flank drain. Please see the multidisciplinary instructions below for details Who to call? If you have concerns or questions: - During the day, it is best to call the General Surgery Clinic to speak with the Surgery nurses. The number is [phone]. - During the night or weekends call the [facility] coordinate measuring machine operator at [phone] and ask to speak to the surgery resident traffic control operator for general surgery. Please note: Your surgeon may not be Painting Trades Worker, especially during the night or on weekends, so be ready to describe yourself and your surgery when you call. Follow up appointments: No future appointments. Dr. Mcgee would like to see you back in 1 week. [x] A request for a follow-up appointment has been made and you should receive information via phone/mail in the next week. If you do not hear anything, please call the clinic at [phone] to confirm or reschedule. If you need a prior authorization, please call the General Surgery Clinic nurses [phone] for prior authorizations assistance documented in this [...] 14 days. documented as of this encounter Progress Notes Mabel Vogt RN - 05/04/2017 11:29 AM EST Patient Name: Adamaris Urena Patient Age: 61 y.o. Birthdate: 1955 Admit date: 04/27/2017 Attending Physician: Gilson Mcgee MD MICROFILM CLERK removed IV, pt A+O x4. Paper prescriptions given to pt, explained. Educated daughter on how to care for LATOYA drain, flush and empty it. D/C instructions given in detail, questions encouraged, pt verbalized understanding. D/C summary faxed [facility], report called. Pt in own clothes with personal belonging with him. Pt in wheelchair, pushed off floor by daughter. Gilma Willard MD - 05/03/2017 1:00 PM EST [facility] Surgery Inpatient Progress Note ID: Adamaris Urena is a 61 y.o. male s/p IR drain placement on 04/27/17 for a large retroperitonealabscess. S/p drain upsizing on 05/02/16. 24hr events: ?? NAOEN ?? Drain upsized to 12fr yesterday with total of 182cc output (including 60cc in case), remains purulent ?? Switched to po Bactrim yesterday, remains afebrile ?? Pain control adequate ?? Tolerating regular diet ?? UOP adequate ?? +flatus +BMx2 ?? Hyponatremia improved slightly with fluid restriction O: Last value Range last 24hrs Temperature Temp: 36.4 ??C (97.5 ??F) Temp: [36.4 ??C (97.5 ??F)-37.1 ??C (98.8 ??F)] Heart Rate Heart Rate: 97 Heart Rate: -- Blood Pressure BP: 146/86 BP: (119-153)/(69-92) Respiratory Rate Resp: 20 Resp: [16-22] SpO2 SpO2: 95 % SpO2: [73 %-98 %] 05/02 0701 - 05/03 0700 In: 1155 [P.O.:1140] Out: 632 [Urine:450] Drain: 182cc purulent Physical Exam: General: NAD, resting comfortably CVS: tachycardic Pulm: breathing comfortably on room air Abd: obese, mildly tender to left flank palpation, non-distended, non- peritoneal, drain in place draining purulent fluid, holding suction Skin: warm, dry Ext: no edema Neuro: non-focal, moving all four extremities spontaneously Labs: Recent Labs 05/03/17 0439 05/02/17 0550 05/01/17 0512 WBC 14.0* 17.0* 18.4* HGB 10.0* 10.2* 9.6* HCT 31.7* 32.1* 29.9* PLATELET 355 381* 366* Recent Labs 05/03/17 0956 05/02/17 0550 NA 133* 132* K 4.0 4.1 CL 96* 97* CO2 21* 21* BUN 16 18 CREATININE 1.27 1.30 GLUCOSE 113 100 CALCIUM 8.6 8.8 Microbiology: 04/27/17 Fluid Culture- pansensitive E Coli 04/28/17 Blood Culture- NGTD New Studies: CT a/p 04/27/17 IMPRESSION Large retroperitoneal fluid collection on the left, inseparable from the left iliopsoas muscle, with variable attenuation ranging from approximately 0-22 Hounsfield units, and containing tiny foci of air, displacing the left kidney ventrally. Question infection of a retroperitoneal hematoma. ?? ASSESSMENT: Adamaris Urena is a 61 y.o. male s/p IR drain placement for large retroperitoneal abscess. Improved tachycardia, HR now 90s. Afebrile with transition to Bactrim. IR drain upsized and holding suction. Leukocytosis down trending 17>14. Will watch an additional day to confirm drain is working adequately and to trend white count, but anticipate discharge tomorrow. PLAN: NEURO: Pain control with tylenol, oxy prn CV: HTN at baseline, home lisinopril and atorvastatin PULM: Encourage IS, may need sleep study as outpatient for sleep apnea GI: Diet Regular diet, zofran prn. PPI. Fluid restriction: 500cc /FEK: strict I&Os, repleat electrolytes as needed, hyponatremia improved ID: afebrile at present, drain upsized 05/02/16, holding suction. Previously on cefepime and flagyl (04/27-05/02), transitioned to po Bactrim(05/02 - present), leukocytosis down trending HEME: Hgb stable ENDO: no current concerns PROPHYLAXIS: SQH, SCDs, PPI DISPO: floor status, Full Code Gilma Willard MD [id number] - [facility] Marlon Multani MD - 05/03/2017 10:39 AM EST INTERVENTIONAL RADIOLOGY Inpatient Progress Note Admitted 04/27/2017 Procedure(s): Left retroperitoneal drain upsizing Post-procedure day: #1 Time of patient encounter: 50AN 24 Hour Events: No acute events. Last Value 24 Hour Range Temperature 36.6 ??C (97.9 ??F) Temp: [36.5 ??C (97.7 ??F)-37.1 ??C (98.8 ??F)] Heart Rate 97 Heart Rate: [97] Blood Pressure (!) 153/91 BP: (119-153)/(69-92) Respiratory Rate 18 Resp: [16-22] SpO2 94 % SpO2: [73 %-98 %] Physical Exam GEN Sleeping this AM CARDS RRR LUNGS CTA B/L ABD Non tender, nondistended Drains/Tubes: Left retroperitoneal drain in place, 60cc out Intake/Output Summary (Last 24 hours) at 05/03/17 1039 Last data filed at 05/03/17 0741 Gross per 24 hour Intake 935 ml Output 625 ml Net 310 ml Labs: Reviewed Assessment: 61 y.o. male who presented with abdominal pain, found to have left retroperitoneal abscess, now s/p upsizing of drainage catheter to a 12Fr catheter. Plan: - Drain functioning this AM as expected with 60cc out - IR to sign off, available if needed Marlon Multani MD IR Fellow Pager #[phone] Julio C Lemus MD - 05/02/2017 3:05 PM EST Brief IR Procedure Note Full report under the imaging tab of [facility] Procedure: Left retroperitoneal drain exchange History/indication: 61 yr old M patient, presenting with abdominal pain; CT scan showed a large collection in the left retroperitoneum. Gram stain has revealed E. Coli. CT guided drainage done on 04/27. Upsizing of the drain requested to optimize output. Technique: Over an Amplatz wire, the tube was exchanged for a 12 Fr drainage catheter. The locking loop was formed and 60 cc of nunes, purulent fluid was aspirated by syringe. Medications: 1% lidocaine (<10 cc); fentanyl 100 mcg Findings: 1. Over the wire drain exchange and uspizing to 12 Fr; leakage of air was likely due to side holes near the skin exit site. 2. 60 cc of nunes, purulent fluid was aspirated by syringe. Attending: Josefina Lemus MD Teena Davalos RN - 05/02/2017 12:22 PM EST Office of Care Management (OCM) / Electric Meter Repairer(CM) Based on discussions with the multi-disciplinary healthcare team, the patient would benefit from SNF/rehab level of care at discharge. ?? I have met with the patient to discuss discharge planning needs. I have provided the [facility], Officeof Care Management letter from the [employer] pertaining to rehab referrals. I have also provided a letter describing our affiliations within the [facility] and educated them about their right to choose where referrals are placed. ?? I reviewed the different levels of rehab including SNF, swing, acute and LTAC with the patient. ?? The patient has been provided a list of facilities within their preferred geographic area. ?? I have requested that the patient provide at least three choices for referral. ?? The patient have requested referrals to: 1. [facility] [address] [place] [id number] ?? [phone] 2. [facility] [address] [place] [address] ? Expected date of discharge: 05/06/17 Note routed to Practicing Dermatologist who will communicate referrals to facilities and provide any required information. Teena Evans revenue stamp clerk Pager [phone] Isabel Gallo RN - 05/02/2017 11:12 AM EST [facility] DATAB[facility] Name: ADAMARIS URENA Date of : 1955 AGE 61 y.o. Address: [address] [address] (home) Mobile: Telephone Information: Referring Provider: Syed Esteban REASON FOR VISIT: Presenting Diagnosis/ Complaint: Adamaris Urena is a 61 y.o. male with s/p IR drain placement on 04/27/17 for a large retroperitoneal abscess. Since admission, size of retroperitoneal collection has decreased in size though there have been issues with leakage of fluid at the connection hubs of the tube and losing suction in the bulb. Has required multiple component changes. Requestnow for drain upsize given persistent collection and issues with drain in anticipation of discharge home. Is the patient on anticoagulant / anitplatelet therapy ? Low Molecular Weight Heparin Reason for exam and clinical history: RP abscess, s/p Ct guided drainage, issues with bulb holding suction Exam/Procedure requested: please rewire and upsize drain to largest size you are comfortable with (want to avoid issues with clogging/holding suction for patient at home) (Assessment/plan from provider's note, bottom of workup) Copy/paste from provider's note (for all CT's) Assessment: 61 y.o. male w/large left retroperitoneal abscess s/p drain placement on 04/27/17. ?? Plan: Upsize of retroperitoneal drain ?? Labs to be performed day of procedure: None Medication to STOP: None Sedation: minimal (single agent only) Prophylactic antibiotic: None Additional medications for procedure: None Planned access site: Left flank Position: Supine Consent: Pending Anticoagulant/antiplatelet/herbal med. stopped on per MD order. No Known Allergies Pertinent PMH: Patient Active Problem List Diagnosis Code ??? Retroperitoneal abscess K68.19 Pertinent PSH: No past surgical history on file. Date/Procedure Meds given/comments 04/27/17 CT Guided Drain Retroperitoneal Placement for Abscess Fentanyl 175 mcg IV ??05/02/16 Upsize drain to 12.5 ??Fentanyl 100 mcg iv ? Laboratory Results: Lab Results Component Value Date CREATININE 1.30 05/02/2017 Lab Results Component Value Date K 4.1 05/02/2017 Lab Results Component Value Date PLATELET 381 (H) 05/02/2017 Medications: Prior to Admission medications Not on File Teena Evans RN - 05/02/2017 10:18 AM EST Office of Care Management (OCM) / Electric Meter Repairer(CM) Providers have indicated patient will discharge home 05/06/17 with LATOYA drain. CM will have human resource professional send referral to [facility]. PHONE: [phone] FAX: [phone]. Teena Evans, revenue stamp clerk Pager [phone] Gilma Willard MD - 05/02/2017 8:45 AM EST [facility] Inpatient Progress Note ID: Adamaris Urena is a 61 y.o. male s/p IR drain placement on 04/27/17 for a large retroperitonealabscess. 24hr events: ?? Overnight, issues with IR drain holding suction, buld and tubing changed multiple times, appears to be holding suction this AM; OP remains purulent ?? Remains slightly tachycardic to low 100s, stable ?? Pain control adequate ?? Tolerating regular diet ?? UOP adequate ?? +flatus +BMx3 O: Last value Range last 24hrs Temperature Temp: 36.8 ??C (98.2 ??F) Temp: [36.7 ??C (98.1 ??F)-37.3 ??C (99.1 ??F)] Heart Rate Heart Rate: (!) 107 Heart Rate: -- Blood Pressure BP: 135/88 BP: (106-165)/(78-96) Respiratory Rate Resp: 20 Resp: [14-20] SpO2 SpO2: 97 % SpO2: [95 %-97 %] 05/01 0701 - 05/02 0700 In: 2632 [P.O.:1480; I.V.:20] Out: 350 [Urine:300] Drain: 50cc purulent Physical Exam: General: NAD, resting comfortably CVS: tachycardic Pulm: breathing comfortably on room air Abd: obese, mildly tender to left flank palpation, non-distended, non- peritoneal, drain in place draining purulent fluid, holding suction presently Skin: warm, dry Ext: no edema Neuro: non-focal, moving all four extremities spontaneously Labs: Recent Labs 05/02/17 0550 05/01/17 0512 04/30/17 0220 WBC 17.0* 18.4* 20.6* HGB 10.2* 9.6* 9.1* HCT 32.1* 29.9* 28.0* PLATELET 381* 366* 325 Recent Labs 05/02/17 0550 04/30/17 0220 NA 132* 131* K 4.1 4.3 CL 97* 97* CO2 21* 19* BUN 18 22* CREATININE 1.30 1.38 GLUCOSE 100 103 CALCIUM 8.8 8.6 MAGNESIUM -- 0.81 PHOS -- 4.2 Microbiology: 04/27/17 Fluid Culture- pansensitive E Coli 04/28/17 Blood Culture- NGTD New Studies: CT a/p 04/27/17 IMPRESSION Large retroperitoneal fluid collection on the left, inseparable from the left iliopsoas muscle, with variable attenuation ranging from approximately 0-22 Hounsfield units, and containing tiny foci of air, displacing the left kidney ventrally. Question infection of a retroperitoneal hematoma. ?? ASSESSMENT: Adamaris Urena is a 61 y.o. male s/p IR drain placement for large retroperitoneal abscess. He continues to have stable mild tachycardia. Drains continue to have purulent output; however, some issue with drains holding suction. Will talk to IR today about rewiring and hopefully upsizing the drain if possible; the concern if that we don't want him to experience drain problems once he leavethe hospital. Body fluid cx growing simmons sensitive E coli -- will transition him to PO Bactrim today as he continues to tolerate a general diet. The source of this abscess remains unknown, though f/u CTshowed rib fx with cortical thinning that may suggest pathologic fracture and may require outpatientworkup. PLAN: NEURO: Pain control with tylenol, oxycodone, morphine for breakthrough CV: HTN at baseline, home lisinopril which he does not take. Holding home statin. PULM: Encourage IS, may need sleep study as outpatient for sleep apnea GI: Diet Regular diet, zofran prn. PPI. /FEK: strict I&Os, repleat electrolytes as needed ID: afebrile at present, source control with drain - will see IR today for trouble shooting, cefepime and flagyl (04/27-05/02), Bactrim(05/02 - present), leukocytosis down trending HEME: Hgb stable ENDO: no current concerns PROPHYLAXIS: SQH, SCDs, PPI DISPO: floor status, Full Code Gilma Willard MD [phone] - [facility] [place], Gilma Lanier MD - 05/01/2017 8:04 AM EST [facility] Inpatient Progress Note ID: Adamaris Urena is a 61 y.o. male s/p IR drain placement on 04/27/17 for a large retroperitonealabscess. 24hr events: ?? IR drain with purulent output, but does not seem to be holding suction. CT scan yesterday showingdecreased but persistent fluid collection. Stopcock appears cracked. ?? CT also showed rib fx with cortical thinning ?? Remains slightly tachycardic to low 100s, stable ?? Pain control adequate ?? Tolerating regular diet ?? UOP adequate ?? +flatus +BMx3 ?? White count and electrolytes stable O: Last value Range last 24hrs Temperature Temp: 36.7 ??C (98.1 ??F) Temp: [36.7 ??C (98.1 ??F)-37.6 ??C (99.7 ??F)] Heart Rate Heart Rate: (!) 107 Heart Rate: [107] Blood Pressure BP: (!) 141/94 (nurse aware) BP: (112-141)/(72-94) Respiratory Rate Resp: 16 Resp: [16-28] SpO2 SpO2: 94 % SpO2: [92 %-99 %] 04/30 0701 - 05/01 0700 In: 2096 [P.O.:1340; I.V.:731] Out: 2775 [Urine:2500] Drain: 200cc purulent Physical Exam: General: NAD, resting comfortably CVS: tachycardic Pulm: breathing comfortably on room air Abd: obese, mildly tender to left flank palpation, non-distended, non- peritoneal, drain in place draining purulent fluid, leak noted Skin: warm, dry Ext: no edema Neuro: non-focal, moving all four extremities spontaneously Labs: Recent Labs 05/01/17 0512 04/30/17 0220 04/29/17 0128 04/28/17 0951 WBC 18.4* 20.6* 20.5* 23.9* HGB 9.6* 9.1* 8.7* 8.8* HCT 29.9* 28.0* 27.0* 27.1* PLATELET 366* 325 335 343 Recent Labs 04/30/17 0220 04/29/17 0128 NA 131* 132* K 4.3 4.9 CL 97* 98 CO2 19* 19* BUN 22* 23* CREATININE 1.38 1.65* GLUCOSE 103 107 CALCIUM 8.6 8.5 MAGNESIUM 0.81 -- PHOS 4.2 -- Microbiology: 04/27/17 Fluid Culture- pansensitive E Coli 04/28/17 Blood Culture- NGTD New Studies: CT a/p 04/27/17 IMPRESSION Large retroperitoneal fluid collection on the left, inseparable from the left iliopsoas muscle, with variable attenuation ranging from approximately 0-22 Hounsfield units, and containing tiny foci of air, displacing the left kidney ventrally. Question infection of a retroperitoneal hematoma. ?? ASSESSMENT: Adamaris Urena is a 61 y.o. male s/p IR drain placement for large retroperitoneal abscess. He continues to have mild tachycardia which has been stable if not slowly improving. Tolerated a general diet yesterday. Had issues with drain not holding suction overnight, a crack in the stop cockwas noted this morning and replace. Drain seems to be functioning at this time, but may need rewiring or up-sizing in IR if inadequate drainage persists. Output continues to be purulent. UOP is adequate. The source of this abscess remains unknown, though f/u CT showed rib fx with cortical thinning that may suggest pathologic fracture and may require outpatient workup. Will continue flagyl and cefepime and monitor drain output. PLAN: NEURO: Pain control with tylenol, oxycodone, morphine for breakthrough CV: HTN at baseline, home med of lisinopril which he does not take. Holding home statin. PULM: Encourage IS, may need sleep study as outpatient for sleep apnea GI: Diet Regular diet, zofran prn. PPI. /FEK: strict I&Os, repleat electrolytes as needed ID: afebrile at present, source control with drain, expect SIRS response resolving, cefepime and flagyl, leukocytosis stable at 18.4 HEME: Hgb 9.6, stable ENDO: no current concerns PROPHYLAXIS: SQH, SCDs DISPO: floor status, Full Code Gilma Willard MD [phone] Tessa Ryder RN - 04/30/2017 12:26 PM EST Pt arrived to [facility]west alert and oriented. Endorses baseline back pain, denies nausea. IR drain to bulbsuction with nunes, creamy output. Long prep contrast initiated for CT scan this afternoon. Masimo applied, VSS on RA. Pt oriented to room and use of call eaton, bed in low and locked position with bed alarm activated. See doc flowsheets for full assessment Inez Gonzales RN - 04/30/2017 12:10 PM EST Patient AOx4 this AM. Complains of back/flank pain at drain insertion site. VSS on RA, HR ST in 100-110s. IR drain in place and still putting out creamy, nunes liquid about 10-20cc q4h. Advanced diet to regular with fair intake for breakfast. No SOB, CP, dizziness reported when patient ambulated to bathroom with walker. Daughter called an ok to update per pt. Plan to transfer pt to lower level of care. Called report to MEET Zarate on 4w. Sent patient to [facility] with belongings via transpo. Olga Carrillo - 04/30/2017 7:04 AM EST [facility] Progress Note ID: Adamaris Urena is a 61 y.o. male s/p IR drain placement on 04/27/17 for a large retroperitonealabscess. 24hr events: ?? IR drain replaced yesterday-- holding suction since ?? Remains slightly tachycardic, stable ?? Pain control adequate ?? Continues to have an strong desire for a diet, no n/v/cp ?? UOP adequate ?? +flatus +BM O: Last value Range last 24hrs Temperature Temp: 36.6 ??C (97.9 ??F) Temp: [36.6 ??C (97.9 ??F)-37.6 ??C (99.7 ??F)] Heart Rate Heart Rate: (!) 110 Heart Rate: [107-119] Blood Pressure BP: 102/51 BP: (102-138)/(51-78) Respiratory Rate Resp: 21 Resp: [21-26] SpO2 SpO2: 96 % SpO2: [95 %-100 %] 04/29 700 - 04/30 07 In: 2854 [P.O.:420; I.V.:2424] Out: 3420 [Urine:3200] Drain: 220cc purulent Physical Exam: General: NAD, resting comfortably CVS: RRR Pulm: CTAB Abd: obese, mildly tender to left flank palpation, non-distended, non- peritoneal, drain in place draining purulent fluid Skin: warm, dry Ext: no edema Neuro: non-focal, moving all four extremities spontaneously Labs: Recent Labs 04/30/1721904/29/17 0128 04/28/17 0951 04/28/17 0201 04/27/17 1815 WBC 20.6* 20.5* 23.9* 21.2* 17.6* HGB 9.1* 8.7* 8.8* 9.3* 10.7* HCT 28.0* 27.0* 27.1* 28.7* 33.5* PLATELET 325 335 343 337 399* Recent Labs 04/30/1721904/29/17 0128 04/28/17 0201 04/27/17 1815 NA 131* 132* 130* 134* K 4.3 4.9 4.9 5.0 CL 97* 98 96* 95* CO2 19* 19* 20* Not Perf BUN 22* 23* 22* 23* CREATININE 1.38 1.65* 1.75* 1.65* GLUCOSE 103 107 -- 113 CALCIUM 8.6 8.5 8.4* 8.9 MAGNESIUM 0.81 -- 0.71 -- PHOS 4.2 -- -- -- Microbiology: 04/27/17 Fluid Culture-pending 04/28/17 Blood Culture- pending New Studies: CT a/p 04/27/17 IMPRESSION Large retroperitoneal fluid collection on the left, inseparable from the left iliopsoas muscle, with variable attenuation ranging from approximately 0-22 Hounsfield units, and containing tiny foci of air, displacing the left kidney ventrally. Question infection of a retroperitoneal hematoma. ?? ASSESSMENT: Adamaris Urena is a 61 y.o. male s/p IR drain placement for large retroperitoneal abscess. He continues to have mild tachycardia which has been stable if not slowly improving. He continuesto have a strong desire to eat. The drain has been replaced and if working adequately, continuing toput out purulent fluid. Will continue flagyl and cefepime. UOP is adequate. The source of this abscess is unknown at this time. Transfer to floor today and advance diet, discontinue IVF. Now that his abscess pocket is decompressed, we would like a repeat CT to evaluate for an etiology. PLAN: NEURO: Pain control with tylenol, oxycodone, morphine for breakthrough CV: HTN at baseline, home med of lisinopril which he does not take. Holding home statin. PULM: Encourage IS, may need sleep study as outpatient for sleep apnea GI: Diet Regular diet, zofran prn. PPI. /FEK: strict I&Os, repleat electrolytes as needed ID: afebrile at present, source control with drain, expect SIRS response resolving, cefepime and flagyl HEME: Hgb 8.8, likely dilutional due to 3L bolused fluids on arrival ENDO: no current concerns PROPHYLAXIS: SQH, SCDs DISPO: floor status, Full Code Olga Finley MD [phone] zenia Villalpando Rn, Franchesca Benitez RN - 04/30/2017 3:41 AM EST Visibly noticeable edema R forearm and hand. Pt reports waking to sudden pain in the elbow/posteriorforearm. An 18g IV catheter was removed from the cephalic vein of the antecubital fossa. The site did not display any redness, streak formation, palpable cord, or defined area of induration, and the catheter was functioning as expected with easily obtained blood return. Based of the arm appearance a duplex study is recommended to rule out catheter related DVT formation. Recommend continued heat, rest, and elevation. No compress was applied due to the Pt insisting on applying cold to the affected area, which would cause further venous constriction in the event of a DVT. Nguyễn Smith MD made aware at 0350. Marlon Campbell MD - 04/29/2017 3:11 PM EST Bulb and drain tubing/connection replaced. No leaking following replacement. Please page with any issues. Marlon Multani MD IR Fellow Pager #[phone] Olga Carrillo - 04/29/2017 7:13 AM EST [facility] Inpatient Progress Note ID: Adamaris Urena is a 61 y.o. male s/p IR drain placement on 04/27/17 for a large retroperitonealabscess. 24hr events: ?? IR drain continued to drain well overnight, last flushed at 0400, on rounds this morning found tonot be holding suction, tegaderms placed with little effect ?? SIRS response yesterday improved, remains tachycardic ~110, SBPs much improved ?? Pain much better- not using much pain medication, continues to have an strong desire for a diet, no n/v/cp ?? UOP adequate O: Last value Range last 24hrs Temperature Temp: 37.4 ??C (99.3 ??F) Temp: [36.3 ??C (97.3 ??F)-37.4 ??C (99.3 ??F)] Heart Rate Heart Rate: (!) 114 Heart Rate: [113-119] Blood Pressure BP: 101/53 BP: (84-116)/(46-66) Respiratory Rate Resp: 22 Resp: [15-29] SpO2 SpO2: 97 % SpO2: [71 %-97 %] 04/28 0701 - 04/29 0700 In: 6207.5 [P.O.:1560; I.V.:4627.5] Out: 3368 [Urine:2765] Drain: 603cc purulent Physical Exam: General: NAD, resting comfortably, pleasant, conversant CVS: RRR Pulm: CTAB Abd: obese, mildly tender to left flank palpation, non-distended, non- peritoneal, drain in place draining purulent fluid but not holding suction well Skin: warm, dry Ext: no edema Neuro: non-focal, moving all four extremities spontaneously Labs: Recent Labs 04/29/17 0128 04/28/17 0951 04/28/17 0201 04/27/17 1815 WBC 20.5* 23.9* 21.2* 17.6* HGB 8.7* 8.8* 9.3* 10.7* HCT 27.0* 27.1* 28.7* 33.5* PLATELET 335 343 337 399* Recent Labs 04/29/17 0128 04/28/17 0201 04/27/17 1815 NA 132* 130* 134* K 4.9 4.9 5.0 CL 98 96* 95* CO2 19* 20* Not Perf BUN 23* 22* 23* CREATININE 1.65* 1.75* 1.65* GLUCOSE 107 -- 113 CALCIUM 8.5 8.4* 8.9 MAGNESIUM -- 0.71 -- Microbiology: 04/27/17 Fluid Culture-pending 04/28/17 Blood Culture- pending New Studies: CT a/p 04/27/17 IMPRESSION Large retroperitoneal fluid collection on the left, inseparable from the left iliopsoas muscle, with variable attenuation ranging from approximately 0-22 Hounsfield units, and containing tiny foci of air, displacing the left kidney ventrally. Question infection of a retroperitoneal hematoma. ?? ASSESSMENT: Adamaris Urena is a 61 y.o. male s/p IR drain placement for large retroperitoneal abscess. He appears much better this AM, while he remains tachycardic, his blood pressures have improved, his pain is much better, and he has a strong desire to eat. The drain has put out a high amount of purulent fluid, however is no longer draining well. It may need to be replaced, or a second drain added. Will continue flagyl and cefepime. UOP is adequate, would like to discontinue the loera today. The source of this abscess is known at this time. He may be appropriate to move back to floor status pending HR improvement. PLAN: NEURO: Pain control with tylenol, oxycodone, morphine for breakthrough CV: HTN at baseline, home med of lisinopril which he does not take. Holding home statin. PULM: Tachypenia resolved, encourage IS, may need sleep study as outpatient for sleep apnea GI: Diet Clear Liquid, zofran prn. PPI. /FEK: discontinue loera, strict I&Os, mIVF@100, repleat electrolytes as needed ID: afebrile at present, source control with drain, expect SIRS response resolving, cefepime and flagyl HEME: Hgb 8.8, likely dilutional due to 3L bolused fluids ENDO: no current concerns PROPHYLAXIS: SQH, SCDs DISPO: ISCU status, Full Code Olga Finley MD [phone] Inez García RN - 04/28/2017 6:27 PM EST Patient arrived to ISCU from floor this AM on RA, HR in the 110s, SBP 100s, and afebrile. Patient rates pain at drain insertion site only. No CP, SOB, . Drain output decreasing from copious to small amounts of drainage. Still thick, creamy brown consistency. Tubing flushed with return, see chart for details. Patient resting comfortably, able to make needs known. Call eaton in reach, bed alarm on and audible, and room near nurses station. Will continue to monitor. *1830 received order from for NaCl 100cc bolus. Indication for tachycardia. Will continue to monitor. Marlon Campbell MD - 04/28/2017 12:54 PM EST [facility] Inpatient Progress Note Admitted 04/27/2017 Procedure(s): left retroperitoneal drain placement for abscess Post-procedure day: #1 Time of patient encounter: 1130AM 24 Hour Events: S/p drain placement yesterday, 1.25L purulent material drained in 24 hrs. Last Value 24 Hour Range Temperature 36.3 ??C (97.3 ??F) Temp: [36.3 ??C (97.3 ??F)-38.8 ??C (101.9 ??F)] Heart Rate (!) 113 Heart Rate: [113-123] Blood Pressure 110/56 BP: (80-141)/(44-92) Respiratory Rate 29 Resp: [17-33] SpO2 95 % SpO2: [90 %-97 %] Physical Exam GEN No distress, A&O CARDS RRR LUNGS CTA B/L ABD Tender to left abdomen EXT Vasc ACCESS Drains/Tubes: Left abdominal drain place to bulb drainage 1.25L out of purulent material Intake/Output Summary (Last 24 hours) at 04/28/17 1255 Last data filed at 04/28/17 1254 Gross per 24 hour Intake 5253.5 ml Output 2505 ml Net 2748.5 ml Labs: Reviewed Assessment: 61 y.o. male w/large left retroperitoneal collection with drain placement yesterday revealing purulent fluid. Plan: - Continue drain to bulb drainage, flush with 5-10cc NS q 8h - Follow-up in IR in 2 weeks or as otherwise determined by surgical team - Orders placed representative notified for IR follow-up drain check - IR to sign off Marlon Multani MD IR Fellow Pager #[phone] Olga Carrillo - 04/28/2017 10:42 AM EST [facility] Progress Note ID: Adamaris Urena is a 61 y.o. male s/p IR drain placement on 04/27/17 for a large retroperitonealabscess. 24hr events: ?? IR drain placed >1L purulent material out ?? SIRS response, SBP ~90, HR ~110, afebrile since last night ?? Life safety to assess, recommending ISCU for better RN:patient ratio ?? C/o Left sided pain, wants diet, no n/v/cp ?? Question of low UOP as he hasn't voided since midnight Subjective: no complaints this AM, denies n/v/cp/sob O: Last value Range last 24hrs Temperature Temp: 36.6 ??C (97.9 ??F) Temp: [36.5 ??C (97.7 ??F)-38.8 ??C (101.9 ??F)] Heart Rate Heart Rate: (!) 123 Heart Rate: [115-123] Blood Pressure BP: 113/62 BP: (80-141)/(44-92) Respiratory Rate Resp: 26 Resp: [17-33] SpO2 SpO2: 92 % SpO2: [90 %-97 %] 04/27 0701 - 04/28 0700 In: 3493 [I.V.:3493] Out: 1650 [Urine:400] Drain: 1250cc purulent Physical Exam: General: NAD, resting comfortably, pleasant, conversant CVS: RRR Pulm: CTAB Abd: obese, very tender to left flank palpation, non-distended, non-peritoneal, drain in place draining purulent fluid Skin: warm, dry Ext: no edema Neuro: non-focal, moving all four extremities spontaneously Labs: Recent Labs 04/28/17 0951 04/28/17 0201 04/27/17 1815 WBC 23.9* 21.2* 17.6* HGB 8.8* 9.3* 10.7* HCT 27.1* 28.7* 33.5* PLATELET 343 337 399* Recent Labs 04/28/17 0201 04/27/17 1815 NA 130* 134* K 4.9 5.0 CL 96* 95* CO2 20* Not Perf BUN 22* 23* CREATININE 1.75* 1.65* GLUCOSE -- 113 CALCIUM 8.4* 8.9 MAGNESIUM 0.71 -- Microbiology: 04/27/17 Fluid Culture-pending 04/28/17 Blood Culture- pending New Studies: CT a/p 04/27/17 IMPRESSION Large retroperitoneal fluid collection on the left, inseparable from the left iliopsoas muscle, with variable attenuation ranging from approximately 0-22 Hounsfield units, and containing tiny foci of air, displacing the left kidney ventrally. Question infection of a retroperitoneal hematoma. ?? ASSESSMENT: Adamaris Urena is a 61 y.o. male s/p IR drain placement for large retroperitoneal abscess. He is very tender on exam and appears uncomfortable. The drain has put out a high amount of purulent fluid and is still patent and draining well. He has received 3L of fluid overnight and into the morning but continues to have low SBPs (last was improved to 113). After drain placement we expect a SIRS response, which should improve through out the day as the drain should provide source control. Should he not improve by tomorrow we will consider repeating a CT scan. We will add flagyl to his antibiotic coverage. To better monitor his UOP and fluid status we will put in a loera. Plan to re-check an H&H and a lactate. The source of this abscess is known at this time. We will transfer him to ISCU status for a better RN to patient ratio as we would like close monitoring of his condition. PLAN: NEURO: Pain control with tylenol, oxycodone, morphine for breakthrough CV: HTN at baseline, home med of lisinopril which he does not take. Holding home statin. PULM: tachypenia likely to resolve as SIRS response settles out, will monitor and encourage IS GI: Diet Clear Liquid, zofran prn. PPI. /FEK: loera in place, strict I&Os, mIVF@150, repleat electrolytes as needed ID: afebrile at present, source control with drain, expect SIRS response to resolve, cefepime and flagyl HEME: Hgb 8.8, likely dilutional due to 3L bolused fluids ENDO: no current concerns PROPHYLAXIS: SQH, SCDs DISPO: ISCU status, Full Code Olga Finley MD [phone] Everton García RN - 04/28/2017 12:07 AM EST Pt arrived to room 214 at 0000 after report received from [place] in ED, and an update from IR after drain placement. Oriented to floor, call system, purposeful rounding, fall prevention program. Pt meeting sepsis MD mildred notified, awaiting call back Macy Dale RN - 04/27/2017 10:50 PM EST [facility] Name: ADAMARIS URENA Date of : 1955 AGE 61 y.o. [address]: [address] [address] (home) Mobile: Telephone Information: Referring Provider: Syed Esteban REASON FOR VISIT: CT Guided Drain Retroperitoneal Abscess Laterality Left Is the patient on anticoagulant / anitplatelet therapy ? No Reason for exam and clinical history: ? RP abscess vs hematoma Plan: CT-guided aspiration/possible drain placement Labs to be performed day of procedure: CBC, CMP Medication to STOP: None Sedation: moderate (conscious sedation) Prophylactic antibiotic: None Additional medications for procedure: None Planned access site: Left flank Position: Prone or right lateral decubitus Consent: Pending No Known Allergies Pertinent PMH: Patient Active Problem List Diagnosis Code ??? Retroperitoneal abscess K68.19 Pertinent PSH: No past surgical history on file. Date/Procedure Meds given/comments 04/27/17 CT Guided Drain Retroperitoneal Placement for Abscess Fentanyl 175 mcg IV [address] procedure room 1 via stretcher. Onto table lying on right side. SaO2, BP and safety strapin place. Meds per protocol. Laboratory Results: Lab Results Component Value Date CREATININE 1.65 (H) 04/27/2017 Lab Results Component Value Date K 5.0 04/27/2017 Lab Results Component Value Date PLATELET 399 (H) 04/27/2017 Medications: Prior to Admission medications Not on File Marlon Campbell MD - 04/27/2017 7:44 PM EST PRE-SEDATION ASSESSMENT / FOCUSED H&P Addendum: The patient's history and physical exam have been reviewed and completed. There has been no intervalchange from that of the pre-operative history and physical exam done within the last 30 days. Risks (including hemorrhage, infection, allergic reaction, occlusion, respiratory depression), and benefits discussed and patient consented to the procedure. I have reviewed with the patient, their prior experience with sedation. The patient has been NPO perprotocol I have reviewed the sedation plan for this patient???s case and concur that Fentanyl and Versed are appropriate choices for sedation and will be provided per the protocoled order set for this case Physical Exam Gen: A&O x 3 Heart: RRR Lungs: clear Abd: Soft, nt/nd ASA Classification: ASA 3 - Patient with moderate systemic disease with functional limitations Mallampati Classification: II (soft palate, uvula, fauces visible) documented in this encounter H&P Notes Marlon Multani MD - 05/02/2017 10:48 AM EST Images from the original note were not included. INTERVENTIONAL RADIOLOGY FOCUSED H&P and PRE-PROCEDURE NOTE: PCP: Odalys Laird MD Referring Provider: Syed Esteban Planned Procedure: Abdominal drain upsizing Procedure Indication: Persistent retroperitoneal abscess with issues with leakage Presenting Diagnosis/ Complaint: Adamaris Urena is a 61 y.o. male with s/p IR drain placement on 04/27/17 for a large retroperitoneal abscess. Since admission, size of retroperitoneal collection has decreased in size though there have been issues with leakage of fluid at the connection hubs of the tube and losing suction in the bulb. Has required multiple component changes. Request now for drain upsize given persistent collection and issues with drain in anticipation of discharge home. Past Medical/Surgical History: Patient Active Problem List Diagnosis Code ??? Retroperitoneal abscess K68.19 No past medical history on file. No past surgical history on file. Medications: No current facility-administered medications on file prior to encounter. No current outpatient prescriptions on file prior to encounter. Allergies: Review of patient's allergies indicates no known allergies. Social History and Habits: Social History Social [...] ??? Not on file Social History Narrative ??? No narrative on file Significant Family History: No family history on file. Pertinent ROS: as per HPI Labs: Lab Results Component Value Date WBC 17.0 (H) 05/02/2017 HCT 32.1 (L) 05/02/2017 PLATELET 381 (H) 05/02/2017 BUN 18 05/02/2017 CREATININE 1.30 05/02/2017 ALKPHOS 95 04/27/2017 AST 15 04/27/2017 ALBUMIN 2.9 (L) 04/27/2017 BILITOT 0.8 04/27/2017 ALT 11 04/27/2017 PROT 7.9 04/27/2017 Imaging: Physical Exam: Pending (to be performed in angio the day of procedure) ASA: Pending (to be assessed in angio the day of procedure) Mallampati Class: Pending (to be assessed in angio the day of procedure) Assessment: 61 y.o. male w/large left retroperitoneal abscess s/p drain placement on 04/27/17. Plan: Upsize of retroperitoneal drain Labs to be performed day of procedure: None Medication to STOP: None Sedation: minimal (single agent only) Prophylactic antibiotic: None Additional medications for procedure: None Planned access site: Left flank Position: Supine Consent: Pending 05/02/2017 Marlon Campbell MD - 04/27/2017 7:35 PM EST Images from the original note were not included. INTERVENTIONAL RADIOLOGY FOCUSED H&P and PRE-PROCEDURE NOTE: PCP: Jorge Tony MD (Inactive) Referring Provider: Syed Esteban Planned Procedure: CT-guided aspiration/drain placement Procedure Indication: Retroperitoneal collection of unclear etiology, tachycardia, leukocytosis Presenting Diagnosis/ Complaint: Adamaris Urena is a 61 y.o. male with hx of abdominal pain that patient states predominately began approximately 5 days ago. Per patient, he recent underwent orchiectomy for testicular pain, and approx 5 days ago developed worsening abdominal pain. States he is constantly thirsty and feels unwell. Plan for CT-guided aspiration/possible drain placement of retroperitoneal collection at this time. Past Medical/Surgical History: Patient Active Problem List Diagnosis Code ??? Retroperitoneal abscess K68.19 No past medical history on file. No past surgical history on file. Medications: No current facility-administered medications on file prior to encounter. No current outpatient prescriptions on file prior to encounter. Allergies: Review of patient's allergies indicates no known allergies. Social History and Habits: Social History Social History ??? Marital status: Spouse name: N/A ??? Number of children: N/A ??? Years of education: N/A Occupational History ??? Not on file. Social History Main Topics ??? Smoking status: Not on file ??? Smokeless tobacco: Not on file ??? Alcohol use Not on file ??? Drug use: Not on file ??? Sexual activity: Not on file Other Topics Concern ??? Not on file Social History Narrative Significant Family History: No family history on file. Pertinent ROS: as per HPI Labs: Lab Results Component Value Date WBC 17.6 (H) 04/27/2017 HCT 33.5 (L) 04/27/2017 PLATELET 399 (H) 04/27/2017 BUN 23 (H) 04/27/2017 CREATININE 1.65 (H) 04/27/2017 ALKPHOS 95 04/27/2017 AST 15 04/27/2017 ALBUMIN 2.9 (L) 04/27/2017 BILITOT 0.8 04/27/2017 ALT 11 04/27/2017 PROT 7.9 04/27/2017 Imaging: Physical Exam: Pending (to be performed in angio the day of procedure) ASA: Pending (to be assessed in angio the day of procedure) Mallampati Class: Pending (to be assessed in angio the day of procedure) Assessment: 61 y.o. male w/retroperitoneal collection of unclear etiology. Plan: CT-guided aspiration/possible drain placement Labs to be performed day of procedure: CBC, CMP Medication to STOP: None Sedation: moderate (conscious sedation) Prophylactic antibiotic: None Additional medications for procedure: None Planned access site: Left flank Position: Prone or right lateral decubitus Consent: Pending 04/27/2017 Lane Zapien MD - 04/27/2017 6:41 PM EST [facility] Department of Surgery Inpatient Consult Note Consultation Requested by: Jaspreet Alberts MD History of Present Illness: We are seeing Adamaris Urena today at the request of Jaspreet Taveras MD for evaluation and advice about back/ abdominal pain. Patient states that he describes feeling like shit since . Describes left sided abdominal, back, flank and groin pain since that time all of which have been worsening. Has had nausea and emesis and has not been able to tolerate much PO. Unsure if he has had fevers or chills. Denies any trauma preceding this. States he was concerned about his groin/testicular pain and saw his PCP a few weeks ago. He was referred to a Urologist who was concerned about torsion as the patient reports he often gets twisted testicles. An orchiopexy was therefore performed about 2 weeks ago- his symptoms didnot improve. He also underwent some injection of his left hip for continued symptoms a few days after his surgery, which did not improve his symptoms either. Secondary to continued pain he went to his local ED. Labs revealed leukocytosis and dehydration. A CT scan was performed (without contrast) that revealed a very large retroperitoneal dense fluid collection,likely an abscess vs. hematoma Past Medical History: No past medical history on file. HTN- does not take his prescribed medications No past surgical history on file. LEFT orchiopexy Home Medications: No current facility-administered medications on file prior to encounter. No current outpatient prescriptions on file prior to encounter. Lisinopril- not taking Simvastatin 49 Allergies: No Known Allergies Family History: Non contributory Social History: Social History Social History ??? Marital status: Spouse name: N/A ??? Number of children: N/A ??? Years of education: N/A Occupational History ??? Not on file. Social History Main Topics ??? Smoking status: Not on file ??? Smokeless tobacco: Not on file ??? Alcohol use Not on file ??? Drug use: Not on file ??? Sexual activity: Not on file Other Topics Concern ??? Not on file Social History Narrative Review of Systems: As stated above, otherwise 10 systems negative Physical Exam: Temp: [37.6 ??C (99.7 ??F)] Heart Rate: [116] Resp: [23] BP: (118)/(75) SpO2: [90 %] Heart Rate from SPO2: -- Gen: NAD NEURO: CN intact HEENT: PERRl CV: Tachy but regular Pulm: CTAB but decreased at bases TTP over left posterior chest. ? Ecchymosis vs. Pressure discoloration over left upper back GI: Soft, obese TTP over left abdomen and left flank. No external bruising LEFT testicle orchiopexy incision c/d/i with no erythema or drainage. Mild testicular bruising but no swelling DERM: dry with patchy areas of scabbing MSK: normal muscle mass and gait. Edema of lower extremities Data independently reviewed: Recent Labs 04/27/17 1815 WBC 17.6* HGB 10.7* PLATELET 399* NA 134* K 5.0 CL 95* CO2 Not Perf BUN 23* CREATININE 1.65* GLUCOSE 113 LFT's Lab Results Component Value Date Alk Phos 95 04/27/2017 AST 15 04/27/2017 Albumin 2.9 (L) 04/27/2017 Total Bilirubin 0.8 04/27/2017 ALT 11 04/27/2017 Total Protein 7.9 04/27/2017 Coags No results found for: INR, PT, PTT Lipase NL CT scan: Large left sided retroperitoneal fluid collection- dense with scattered air at the most superior aspect. Hematoma vs. Abscess Impression: 61 yo male with month long prodrome of non-specific symptoms who was discovered to have a large retroperitoneal fluid collection that likely represents an abscess vs. Infected hematoma. Hasreceived multiple liters of fluid and Zosyn at the OSH. Unsure as to the source of this fluid, but will ask IR to sample and likely leave a drain. Will then likely need a more definitive work up after drainage of the fluid Recommendation: NPO IR drainage of RP collection. Send fluid for culture Cefepime 2g Q8 (Zosyn shortage) Monitor kidney function- unknown baseline CR Admit to General Surgery LANE URBANO MD Associated attestation - Gilson Mcgee MD - 04/28/2017 10:48 AM EST Mr. Urena is a 61 year old male with a one month history of testicular/flank pain, 40lb weight loss who was found on recent CT scan to have a massive retroperitoneal abscess [id number]. This was drained percutaneously by IR last PM with immediate aspiration of 450cc purulent, foul-smelling material and additional 600cc out via drain since placement. Despite this drainage procedure, he has had some persistent mild hypotension 80-90's SBP, HR 110's even with aggressive fluid replacement. As such, he appears to have undergone appropriate drainage procedure, is being rehydrated, and is on reasonable antibiotic therapy - likely some degree of SIRS response to this procedure ongoing however. We will escalate level of care to ISCU for closer nursing care, watching closely for resolution of this responseto drainage. If continued SIRS or sepsis were to develop, likely ICU and would consider repeat CT toensure adequate drainage s/p pigtail placement. Gilson Mcgee MD #[id number] documented in this encounter ED Notes Beth Harrington RN - 04/27/2017 8:45 PM EST MD Webber Notified of pts decline; increased pain, RR, HR, and temp. Jaspreet Alberts MD - 04/27/2017 6:29 PM EST The patient was seen in conjunction with the resident physician. I have independently performed the law portions of the history and physical exam. I have reviewed all diagnostic studies personally including labs, imaging studies. I have discussed the details of the case with the resident and agree with the assessment and plan as described in the resident note above unless noted otherwise below. 61 y.o. male, presenting from outside hospital for retroperitoneal fluid collection, concern for abscess vs necrotic soft tissue mass. HD stable originally, with mild worsening in ED. Patient continuedwith fluid resuscitation here in the emergency department, observed, admitted to IR for drainage and ultimate admission to the surgical service. Impression: Sepsis due to retroperitoneal abscess. Jaspreet Alberts MD 04/30/17 [id number] Jaspreet Alberts MD 04/30/17 2451 Estefany Moser MD - 04/27/2017 6:26 PM EST ED Transfer Note: Patient accepted in transfer by [facility] due to concern for retroperitoneal mass/abscess. A brief history was elicited from the patient and the transfer documents. Briefly, Adamaris Urena is a 61 y.o. male s/p recent orchiopexy, HTN who presented to [facility] for flank/abdominal pain. Course at OSH was notable for CT A/P showing possible retroperitoneal abscess versus hematoma. Pt received zosyn, IVF, zofran medications. On my brief examination: Vitals are stable, pt tachycardic Gen: Awake, alert and interactive with airway intact. HEENT: PERRL, clear oropharynx, dry lips Pulm: Airway intact. CTAB anteriorly CV: Tachycardic, regular Abd: Protuberant, mild TTP LLQ and L flank : Left testicular incision c/d/i with mild ecchymosis Neuro: Grossly intact, moving all extremities I contacted the accepting team. They did not need additional imaging. They will evaluate the patient, please see their notes. Additional lab work / imaging/ medications including below was ordered: - CBC, CMP, lipase, lactate - IVF x 2L - IV morphine ED Course and Disposition - Second read CT A/P: Large retroperitoneal fluid collection on the left, inseparable from the left iliopsoas muscle, with variable attenuation ranging from approximately 0-22 Hounsfield units, and containing tiny foci of air, displacing the left kidney ventrally. Question infection of a retroperitoneal hematoma. - Labs show significant leukocytosis 21.2, increased BUN and Cr, lactate 2.5, lipase WNL, mild hypochloremia and hyponatremia - Concern for sepsis but blood pressure stable - Pt continues to be tachycardic and now with fever. Given second IVF bolus, IV Tylenol. Not due forantibiotics yet. IR contacted and patient next in line. - Patient to IR for drainage and will be admitted to [facility] Estefany Moser MD Resident 04/28/17 [id number] documented in this encounter Miscellaneous Notes Plan of Care - Melissa Solomon RN - 05/04/2017 3:40 AM EST Problem: Patient Care Overview Goal: Plan of Care Review Outcome: Ongoing (Interventions Implemented as Appropriate) 05/02/17 0320 05/03/17 1900 Coping/Psychosocial Plan Of Care Reviewed With -- patient Plan of Care Review Progress progress towards functional goals is fair -- OUTCOME EVALUATION NOTE: OUTCOME SUMMARY: Adamaris slept soundly in between care. He was noted to have intermittent desaturations with spO2 as lowas 77% at times, but he quickly returns to high 90s. 2L NC was placed for comfort with sleeping withminimal decrease in number of desaturations noted. LATOYA drain continues to produce creamy, nunes drainage. Flushed q8hr per MD order. VSS with exception of desaturations noted previously. He is urinating in small, concentrated amounts. Free water maintained <500mL for day of 05/03. No BM this shift. + BS. PLAN MOVING FORWARD: Ambulation and mobility as tolerated Monitor LATOYA drain output, flush q8hr as ordered PO abx as ordered INDIVIDUALIZED FALL PREVENTION INTERVENTIONS: Patient-specific fall risk factors per assessment: [current deficits]: Generalized weakness, LATOYA drain Assistance [level of assistance required for transfers and ambulation]: SBA Supervision [direct monitoring required during toileting and ADLs]: Eyes on Surveillance [continuous indirect monitoring]: Purposeful hourly rounding, room near unit station Patient-specific fall prevention interventions for sensory deficits provided, if applicable: [X] YesGlasses at bedside CPG GOAL OUTCOME EVALUATION: Plan of Care - Gilma Haas RN - 05/03/2017 3:29 AM EST Problem: Patient Care Overview Goal: Plan of Care Review Outcome: Ongoing (Interventions Implemented as Appropriate) 05/02/17 0320 05/02/17 1957 Coping/Psychosocial Plan Of Care Reviewed With -- patient Plan of Care Review Progress progress towards functional goals is fair -- OUTCOME EVALUATION NOTE: OUTCOME SUMMARY: Adamaris had an okay night. He slept throughout shift in between care. New drain that was placed in IR today has been holding suction throughout the entire night. Flushed throughout shift every 8 hours with 5-10mL per order. Vital signs have been stable on room air. Patient has been up ad julian in the room voiding throughout the shift. He is currently denying pain and nausea at this time. No shortness of breath reported. Complained of heartburn at the start of the shift which was relieved with TUMS and protonix. Will continue to monitor. PLAN MOVING FORWARD: Discharge to rehabilitation facility when appropriate. INDIVIDUALIZED FALL PREVENTION INTERVENTIONS: Patient-specific fall risk factors per assessment: [current deficits]: Increased pain with movement,generalized weakness. Assistance [level of assistance required for transfers and ambulation]: Standby assist with walker. Supervision [direct monitoring required during toileting and ADLs]: Eyes on. Surveillance [continuous indirect monitoring]: Room near unit station, call eaton in reach, hourly rounding, Masimo. Patient-specific fall prevention interventions for sensory deficits provided, if applicable: [X] N/A CPG GOAL OUTCOME EVALUATION: Ongoing Goal: Individualization & Mutuality Outcome: Ongoing (Interventions Implemented as Appropriate) 04/28/17 0321 04/28/17 0538 Individualization Patient Specific Goals Treat infection -- Mutuality/Individual Preferences What Anxieties, Fears or Concerns Do You Have About Your Health or Care? -- Not sure if company still has insurance coverage- company's going under What Questions Do You Have About Your Health or Care? -- None Goal: Fall Prevention-Safe Patient Handling Outcome: Ongoing (Interventions Implemented as Appropriate) 04/29/17 0422 05/02/17195605/03/17 0005 Activity and Safety Assistive Device None -- -- Musculoskeletal Interventions Muscle Strengthening activity/mobility promoted;mobility in bed promoted -- -- Gonzales Fall Risk History of Falling -- 0 -- Secondary Diagnosis -- 15 -- Ambulatory Aids -- 15 -- Intravenous Therapy/Heparin/Saline Lock -- 20 -- Gait/Transferring -- 0 -- Mental Status -- 0 -- Score -- 50 -- OTHER Gonzales Fall Risk -- High -- Restraint Interventions Safety Promotion/Fall Prevention -- -- safety round/check completed Positioning Body Position -- independent -- Goal: Infection Control Outcome: Ongoing (Interventions Implemented as Appropriate) 05/02/171956 Safety Interventions Isolation Precautions standard precautions maintained Infection Prevention single patient room provided;rest/sleep promoted;personal protective equipment utilized;equipment surfaces disinfected Coping Strategies Supportive Measures active listening utilized;self-care encouraged;verbalization of feelings encouraged;positive reinforcement provided;decision-making supported Goal: Discharge Needs Assessment Outcome: Ongoing (Interventions Implemented as Appropriate) 04/28/1753705/02/17319 Discharge Needs Assessment Concerns To Be Addressed -- denies needs/concerns at this time Readmission Within The Last 30 Days -- no previous admission in last 30 days Equipment Needed After Discharge -- none Discharge Disposition -- still a patient Current Health Anticipated Changes Related to Illness -- none Activity/Self Care Review of Systems Equipment Currently Used at Home -- none Living Environment Transportation Available ambulance -- Problem: Infection, Risk/Actual (Adult) Goal: Infection Prevention/Resolution Patient will demonstrate the desired outcomes by discharge/transition of care. Outcome: Ongoing (Interventions Implemented as Appropriate) 05/03/17322 Infection, Risk/Actual (Adult) Infection Prevention/Resolution making progress toward outcome Problem: Skin Integrity Impairment, Risk/Actual (Adult) Goal: Skin Integrity/Wound Healing Patient will demonstrate the desired outcomes by discharge/transition of care. Outcome: Ongoing (Interventions Implemented as Appropriate) 05/03/17322 Skin Integrity Impairment, Risk/Actual (Adult) Skin Integrity/Wound Healing making progress toward outcome Plan of Care - Inocencio Reyna RN - 05/02/2017 1:58 PM EST Problem: Patient Care Overview Goal: Plan of Care Review OUTCOME EVALUATION NOTE: OUTCOME SUMMARY: Resting comfortably at this time. PLAN MOVING FORWARD: Going to IR to fix drain. INDIVIDUALIZED FALL PREVENTION INTERVENTIONS: Patient-specific fall risk factors per assessment: [current deficits]: Eyes on and arms length. Assistance [level of assistance required for transfers and ambulation]: Standby assist using a walker. Supervision [direct monitoring required during toileting and ADLs]: All activities. Surveillance [continuous indirect monitoring]: Purposeful hourly rounding. Patient-specific fall prevention interventions for sensory deficits provided, if applicable: [X] Yes CPG GOAL OUTCOME EVALUATION: Goal: Individualization & Mutuality Outcome: Ongoing (Interventions Implemented as Appropriate) 04/28/17 0321 04/28/17 0538 Individualization Patient Specific Goals Treat infection -- Mutuality/Individual Preferences What Anxieties, Fears or Concerns Do You Have About Your Health or Care? -- Not sure if company still has insurance coverage- company's going under What Questions Do You Have About Your Health or Care? -- None What Information Would Help Us Give You More Personalized Care? -- I need water and food. (Pt NPO for now per MD orders) Keep team plan of care info current. Goal: Fall Prevention-Safe Patient Handling Outcome: Ongoing (Interventions Implemented as Appropriate) 04/29/17 0422 05/02/17 0730 Activity and Safety Assistive Device None -- Musculoskeletal Interventions Muscle Strengthening activity/mobility promoted;mobility in bed promoted -- Gonzales Fall Risk History of Falling -- 0 Secondary Diagnosis -- 15 Ambulatory Aids -- 15 Intravenous Therapy/Heparin/Saline Lock -- 20 Gait/Transferring -- 10 Mental Status -- 0 Score -- 60 OTHER Gonzales Fall Risk -- High Restraint Interventions Safety Promotion/Fall Prevention -- activity supervised;fall prevention program maintained;nonskid shoes/slippers when out of bed;safety round/check completed Positioning Body Position -- independent Standby assist using a walker. Goal: Infection Control Outcome: Ongoing (Interventions Implemented as Appropriate) 05/02/17 0730 Safety Interventions Isolation Precautions standard precautions maintained Infection Prevention environmental surveillance performed;single patient room provided Coping Strategies Supportive Measures active listening utilized;positive reinforcement provided Good hand hygiene and am care. Goal: Discharge Needs Assessment Outcome: Ongoing (Interventions Implemented as Appropriate) 04/28/17 0538 05/02/17 0320 Discharge Needs Assessment Concerns To Be Addressed -- denies needs/concerns at this time Readmission Within The Last 30 Days -- no previous admission in last 30 days Equipment Needed After Discharge -- none Discharge Disposition -- still a patient Current Health Anticipated Changes Related to Illness -- none Activity/Self Care Review of Systems Equipment Currently Used at Home -- none Living Environment Transportation Available ambulance -- [facility] will arrange for DC when medically ready. Plan of Care - Gilma Haas RN - 05/02/2017 3:28 AM EST Problem: Patient Care Overview Goal: Plan of Care Review Outcome: Ongoing (Interventions Implemented as Appropriate) 05/02/17 0320 Coping/Psychosocial Plan Of Care Reviewed With patient Plan of Care Review Progress progress towards functional goals is fair OUTCOME EVALUATION NOTE: OUTCOME SUMMARY: Adamaris had an okay night. He slept during the shift in between care. Up ad julian in the room. Encouragedto walk in hallway, but he refused. Vital signs stable on room air. Voiding adequately. One loose stool on shift. IR drain was not holding suction. Connection tubing and drainage bulb were changed by this RN. Drain was flushed. It is now currently holding suction. Small amount of nunes, creamy drainage coming out of drain. Patient is denying pain and nausea at this time. Will continue to monitor. PLAN MOVING FORWARD: Monitor IR drain suction. Continue IV antibiotics. Encourage independence. INDIVIDUALIZED FALL PREVENTION INTERVENTIONS: Patient-specific fall risk factors per assessment: [current deficits]: Increased pain with movement,fatigue, generalized weakness. Assistance [level of assistance required for transfers and ambulation]: Standby assist with walker. Supervision [direct monitoring required during toileting and ADLs]: Eyes on, room near unit station,call eaton in reach, hourly rounding, Masimo. Surveillance [continuous indirect monitoring]: Eyes on. Patient-specific fall prevention interventions for sensory deficits provided, if applicable: [X] YesGlasses on. CPG GOAL OUTCOME EVALUATION: Ongoing. Goal: Individualization & Mutuality Outcome: Ongoing (Interventions Implemented as Appropriate) 04/28/17 0321 04/28/17 0538 Individualization Patient Specific Goals Treat infection -- Mutuality/Individual Preferences What Anxieties, Fears or Concerns Do You Have About Your Health or Care? -- Not sure if [employer] still has insurance coverage- company's going under What Questions Do You Have About Your Health or Care? -- None What Information Would Help Us Give You More Personalized Care? -- I need water and food. (Pt NPO for now per MD orders) Goal: Fall Prevention-Safe Patient Handling Outcome: Ongoing (Interventions Implemented as Appropriate) 04/29/17 0422 05/01/17 1926 05/02/17 0300 Activity and Safety Assistive Device None -- -- Musculoskeletal Interventions Muscle Strengthening activity/mobility promoted;mobility in bed promoted -- -- Gonzales Fall Risk History of Falling -- 0 -- Secondary Diagnosis -- 15 -- Ambulatory Aids -- 15 -- Intravenous Therapy/Heparin/Saline Lock -- 20 -- Gait/Transferring -- 10 -- Mental Status -- 0 -- Score -- 60 -- OTHER Gonzales Fall Risk -- High -- Restraint Interventions Safety Promotion/Fall Prevention -- -- safety round/check completed Positioning Body Position -- independent -- Goal: Infection Control Outcome: Ongoing (Interventions Implemented as Appropriate) 05/01/17 1926 Safety Interventions Isolation Precautions standard precautions maintained Infection Prevention single patient room provided;rest/sleep promoted;equipment surfaces disinfected Coping Strategies Supportive Measures active listening utilized;verbalization of feelings encouraged;positive reinforcement provided;self-care encouraged;relaxation techniques promoted Goal: Discharge Needs Assessment Outcome: Ongoing (Interventions Implemented as Appropriate) 05/02/17 032 Discharge Needs Assessment Concerns To Be Addressed denies needs/concerns at this time Readmission Within The Last 30 Days no previous admission in last 30 days Equipment Needed After Discharge none Discharge Disposition still a patient Current Health Anticipated Changes Related to Illness none Activity/Self Care Review of Systems Equipment Currently Used at Home none Problem: Infection, Risk/Actual (Adult) Goal: Infection Prevention/Resolution Patient will demonstrate the desired outcomes by discharge/transition of care. Outcome: Ongoing (Interventions Implemented as Appropriate) 05/02/17 032 Infection, Risk/Actual (Adult) Infection Prevention/Resolution making progress toward outcome Problem: Skin Integrity Impairment, Risk/Actual (Adult) Goal: Skin Integrity/Wound Healing Patient will demonstrate the desired outcomes by discharge/transition of care. Outcome: Ongoing (Interventions Implemented as Appropriate) 05/02/17319 Skin Integrity Impairment, Risk/Actual (Adult) Skin Integrity/Wound Healing making progress toward outcome Plan of Care - Inocencio Reyna RN - 05/01/2017 2:15 PM EST Problem: Patient Care Overview Goal: Plan of Care Review OUTCOME EVALUATION NOTE: OUTCOME SUMMARY: replaced the hub on IR drain, and it now holds suction, will continue to monitor. PLAN MOVING FORWARD: No c/o pain at this time, up in halls walking this afternoon. INDIVIDUALIZED FALL PREVENTION INTERVENTIONS: Patient-specific fall risk factors per assessment: [current deficits]: Eyes on and arms length. Assistance [level of assistance required for transfers and ambulation]: Standby assist/walker. Supervision [direct monitoring required during toileting and ADLs]: All activities. Surveillance [continuous indirect monitoring]: Purposeful hourly rounding. Patient-specific fall prevention interventions for sensory deficits provided, if applicable: [X] Yes CPG GOAL OUTCOME EVALUATION: Goal: Individualization & Mutuality Outcome: Ongoing (Interventions Implemented as Appropriate) 04/28/1732004/28/17537 Individualization Patient Specific Goals Treat infection -- Mutuality/Individual Preferences What Anxieties, Fears or Concerns Do You Have About Your Health or Care? -- Not sure if company still has insurance coverage- company's going under What Questions Do You Have About Your Health or Care? -- None What Information Would Help Us Give You More Personalized Care? -- I need water and food. (Pt NPO for now per MD orders) Keep team plan of care info current. Goal: Fall Prevention-Safe Patient Handling Outcome: Ongoing (Interventions Implemented as Appropriate) 04/29/1742105/01/17 0730 05/01/17 1406 Activity and Safety Assistive Device None -- -- Musculoskeletal Interventions Muscle Strengthening activity/mobility promoted;mobility in bed promoted -- -- Gonzales Fall Risk History of Falling -- 0 -- Secondary Diagnosis -- 15 -- Ambulatory Aids -- 15 -- Intravenous Therapy/Heparin/Saline Lock -- 20 -- Gait/Transferring -- 10 -- Mental Status -- 0 -- Score -- 60 -- OTHER Gonzales Fall Risk -- High -- Restraint Interventions Safety Promotion/Fall Prevention -- activity supervised;fall prevention program maintained;nonskid shoes/slippers when out of bed;safety round/check completed -- Positioning Body Position -- -- independent Standby assist using a walker. Goal: Infection Control Outcome: Ongoing (Interventions Implemented as Appropriate) 05/01/17 0730 Safety Interventions Isolation Precautions standard precautions maintained Infection Prevention environmental surveillance performed;single patient room provided Coping Strategies Supportive Measures active listening utilized;positive reinforcement provided Good hand hygiene and am care. Goal: Discharge Needs Assessment Outcome: Ongoing (Interventions Implemented as Appropriate) 04/28/1732004/28/1753704/29/17 0421 Discharge Needs Assessment Concerns To Be Addressed denies needs/concerns at this time -- -- Readmission Within The Last 30 Days -- -- no previous admission in last 30 days Equipment Needed After Discharge -- -- none Discharge Disposition -- -- still a patient Current Health Anticipated Changes Related to Illness -- -- none Activity/Self Care Review of Systems Equipment Currently Used at Home -- -- none Living Environment Transportation Available -- ambulance -- [facility] will arrange for DC when medically ready. Problem: Infection, Risk/Actual (Adult) Goal: Infection Prevention/Resolution Patient will demonstrate the desired outcomes by discharge/transition of care. Outcome: Ongoing (Interventions Implemented as Appropriate) 05/01/17320 Infection, Risk/Actual (Adult) Infection Prevention/Resolution making progress toward outcome Will continue to monitor. Problem: Skin Integrity Impairment, Risk/Actual (Adult) Goal: Skin Integrity/Wound Healing Patient will demonstrate the desired outcomes by discharge/transition of care. Outcome: Ongoing (Interventions Implemented as Appropriate) 05/01/17320 Skin Integrity Impairment, Risk/Actual (Adult) Skin Integrity/Wound Healing making progress toward outcome Will continue to monitor. Plan of Care - Gilma Haas RN - 05/01/2017 3:28 AM EST Problem: Patient Care Overview Goal: Plan of Care Review Outcome: Ongoing (Interventions Implemented as Appropriate) 04/30/17 0415 04/30/171999 Coping/Psychosocial Plan Of Care Reviewed With -- patient Plan of Care Review Progress progress towards functional goals is fair -- OUTCOME EVALUATION NOTE: OUTCOME SUMMARY: Adamaris slept throughout shift in between care. Vital signs stable on room air. Pain well controlled with current plan. Patient complained of nausea at start of shift. PRN zofran administered and cool cloth applied to forehead. Patient stated that the interventions relieved his signs of nausea. Ambulatedto bathroom frequently throughout shift. More ambulation and independence encouraged. Voiding adequately. Had liquid bowel movement on shift. IR drain flushed with 10mL every 8 hours, remained to suction. Small amount of creamy, nunes drainage. See doc flow sheets for details. IV antibiotics continued. Patient refusing to wear sequential compression devices. Will continue to reinforce teaching and monitor. PLAN MOVING FORWARD: IV antibiotics Encourage independence. INDIVIDUALIZED FALL PREVENTION INTERVENTIONS: Patient-specific fall risk factors per assessment: [current deficits]: Increased pain with movement,needs assistance getting out of bed, tethering devices (IV pole). Assistance [level of assistance required for transfers and ambulation]: Standby assist with walker. Supervision [direct monitoring required during toileting and ADLs]: Eyes on. Surveillance [continuous indirect monitoring]: Bed alarm set, room near unit station, call eaton in reach, hourly rounding, Masimo. Patient-specific fall prevention interventions for sensory deficits provided, if applicable: [X] YesGlasses on. CPG GOAL OUTCOME EVALUATION: Ongoing. Goal: Individualization & Mutuality Outcome: Ongoing (Interventions Implemented as Appropriate) 04/28/1732004/28/17537 Individualization Patient Specific Goals Treat infection -- Mutuality/Individual Preferences What Anxieties, Fears or Concerns Do You Have About Your Health or Care? -- Not sure if company still has insurance coverage- company's going under What Questions Do You Have About Your Health or Care? -- None What Information Would Help Us Give You More Personalized Care? -- I need water and food. (Pt NPO for now per MD orders) Goal: Fall Prevention-Safe Patient Handling Outcome: Ongoing (Interventions Implemented as Appropriate) 04/29/1742104/30/171999 Activity and Safety Assistive Device None -- Musculoskeletal Interventions Muscle Strengthening activity/mobility promoted;mobility in bed promoted -- Gonzales Fall Risk History of Falling -- 0 Secondary Diagnosis -- 15 Ambulatory Aids -- 15 Intravenous Therapy/Heparin/Saline Lock -- 20 Gait/Transferring -- 10 Mental Status -- 0 Score -- 60 OTHER Gonzales Fall Risk -- High Restraint Interventions Safety Promotion/Fall Prevention -- activity supervised;nonskid shoes/slippers when out of bed;safety round/check completed;fall prevention program maintained Positioning Body Position -- independent Goal: Infection Control Outcome: Ongoing (Interventions Implemented as Appropriate) 04/30/171999 Safety Interventions Isolation Precautions standard precautions maintained Infection Prevention single patient room provided;rest/sleep promoted;personal protective equipment utilized;equipment surfaces disinfected Coping Strategies Supportive Measures active listening utilized;verbalization of feelings encouraged;positive reinforcement provided Goal: Discharge Needs Assessment Outcome: Ongoing (Interventions Implemented as Appropriate) 04/28/1732004/28/1753704/29/17420 Discharge Needs Assessment Concerns To Be Addressed denies needs/concerns at this time -- -- Readmission Within The Last 30 Days -- -- no previous admission in last 30 days Equipment Needed After Discharge -- -- none Discharge Disposition -- -- still a patient Current Health Anticipated Changes Related to Illness -- -- none Activity/Self Care Review of Systems Equipment Currently Used at Home -- -- none Living Environment Transportation Available -- ambulance -- Problem: Infection, Risk/Actual (Adult) Goal: Infection Prevention/Resolution Patient will demonstrate the desired outcomes by discharge/transition of care. Outcome: Ongoing (Interventions Implemented as Appropriate) 05/01/17 0321 Infection, Risk/Actual (Adult) Infection Prevention/Resolution making progress toward outcome Problem: Skin Integrity Impairment, Risk/Actual (Adult) Goal: Skin Integrity/Wound Healing Patient will demonstrate the desired outcomes by discharge/transition of care. Outcome: Ongoing (Interventions Implemented as Appropriate) 05/01/17 0321 Skin Integrity Impairment, Risk/Actual (Adult) Skin Integrity/Wound Healing making progress toward outcome Plan of Care - Tessa Ryder RN - 04/30/2017 4:16 PM EST Problem: Patient Care Overview Goal: Plan of Care Review Outcome: Ongoing (Interventions Implemented as Appropriate) 04/30/17 0415 04/30/17 1228 Coping/Psychosocial Plan Of Care Reviewed With -- patient Plan of Care Review Progress progress towards functional goals is fair -- OUTCOME EVALUATION NOTE: OUTCOME SUMMARY: Adamaris is doing OK. Was not compliant with drinking much contrast, reports feeling too full, encouraged pt to drink as much as he could tolerate, went down for CT this afternoon. Voiding adequately, noBM since arrival to floor. IR drain with small amt nunes, creamy drainage. PLAN MOVING FORWARD: Awaiting CT results, monitor LATOYA drainage INDIVIDUALIZED FALL PREVENTION INTERVENTIONS: Patient-specific fall risk factors per assessment: [current deficits]: LATOYA, general weakness Assistance [level of assistance required for transfers and ambulation]: 1 assist with walker Supervision [direct monitoring required during toileting and ADLs]: Hands on Surveillance [continuous indirect monitoring]: Purposeful rounding, call eaton within reach, room near unit station, bed alarm Patient-specific fall prevention interventions for sensory deficits provided, if applicable: Nonskidfootwear, lights adjusted, room free from clutter CPG GOAL OUTCOME EVALUATION: Goal: Individualization & Mutuality Outcome: Ongoing (Interventions Implemented as Appropriate) 04/28/1732004/28/17537 Individualization Patient Specific Goals Treat infection -- Mutuality/Individual Preferences What Anxieties, Fears or Concerns Do You Have About Your Health or Care? -- Not sure if company still has insurance coverage- company's going under What Questions Do You Have About Your Health or Care? -- None What Information Would Help Us Give You More Personalized Care? -- I need water and food. (Pt NPO for now per MD orders) Goal: Fall Prevention-Safe Patient Handling Outcome: Ongoing (Interventions Implemented as Appropriate) 04/29/1742104/30/171227 Activity and Safety Assistive Device None -- Musculoskeletal Interventions Muscle Strengthening activity/mobility promoted;mobility in bed promoted -- Gonzales Fall Risk History of Falling -- 0 Secondary Diagnosis -- 15 Ambulatory Aids -- 15 Intravenous Therapy/Heparin/Saline Lock -- 20 Gait/Transferring -- 10 Mental Status -- 0 Score -- 60 OTHER Gonzales Fall Risk -- High Restraint Interventions Safety Promotion/Fall Prevention -- activity supervised;fall prevention program maintained;nonskid shoes/slippers when out of bed;safety round/check completed Positioning Body Position -- independent Goal: Infection Control Outcome: Ongoing (Interventions Implemented as Appropriate) 04/30/178 Safety Interventions Isolation Precautions standard precautions maintained Infection Prevention rest/sleep promoted Coping Strategies Supportive Measures active listening utilized;counseling provided;verbalization of feelings encouraged;self-care encouraged;relaxation techniques promoted Goal: Discharge Needs Assessment Outcome: Ongoing (Interventions Implemented as Appropriate) 04/28/1732004/28/1753704/29/17420 Discharge Needs Assessment Concerns To Be Addressed denies needs/concerns at this time -- -- Readmission Within The Last 30 Days -- -- no previous admission in last 30 days Equipment Needed After Discharge -- -- none Discharge Disposition -- -- still a patient Current Health Anticipated Changes Related to Illness -- -- none Activity/Self Care Review of Systems Equipment Currently Used at Home -- -- none Living Environment Transportation Available -- ambulance -- Problem: Infection, Risk/Actual (Adult) Goal: Infection Prevention/Resolution Patient will demonstrate the desired outcomes by discharge/transition of care. Outcome: Ongoing (Interventions Implemented as Appropriate) 04/30/17413 Infection, Risk/Actual (Adult) Infection Prevention/Resolution making progress toward outcome Problem: Skin Integrity Impairment, Risk/Actual (Adult) Goal: Identify Related Risk Factors and Signs and Symptoms Related risk factors and signs and symptoms are identified upon initiation of Human Response Clinical Practice Guideline (CPG) Outcome: Outcome (s) achieved Date Met: 04/30/17 04/29/17419 Skin Integrity Impairment, Risk/Actual Skin Integrity Impairment, Risk/Actual: Related Risk Factors edema;immobility;infection/disease process;surgery/procedure Signs and Symptoms (Skin Integrity Impairment) edema;exudate (purulent) Goal: Skin Integrity/Wound Healing Patient will demonstrate the desired outcomes by discharge/transition of care. Outcome: Ongoing (Interventions Implemented as Appropriate) 04/30/17413 Skin Integrity Impairment, Risk/Actual (Adult) Skin Integrity/Wound Healing making progress toward outcome Initial Assessments - Dina Reza RN - 04/30/2017 9:12 AM EST Office of Care Management Initial Assessment Dina Reza RN reviewed record and discussed patient with Care Team. Source of Information: [facility] Team, bedside nurse, chart review, interviewing patient andtheir family. Introduced self/reviewed role; services accepted. Reason for Hospitalization: Reason for Admission as Stated by Patient: Abdominal pain 04/29-Progress note-Dr. Finley: 61 y.o. male s/p IR drain placement on 04/27/17 for a large retroperitoneal abscess. -2L O2 while asleep -Left flank LATOYA No past medical history on file. Hospitalizations Within the Past 30 Days: No Anticipated Length Of Stay (If known): TBD Current Decision-Making Capacity: Patient is A&Ox4 Advance Care Planning: Full Code Discussed and provided advance directive booklet and forms, patient will discuss with family at a later time. Patient interested in filling out [place] Advanced Directives. Agustin Urena, daughter 1st DPOA Elizabeth Urena, Sister 2nd DPOA [place] surrogacy law and process of guardianship explained. If AD's have not been completed then Agustin Urena, daughter would be surrogate decision maker per [facility] decision making law. Any patient receiving care at [facility] must abide by [place] law. The hierarchy for surrogate decision makingis: (a) Patient???s spouse, or civil union partner or common law spouse unless there is a divorce proceeding, separation agreement, or restraining order limiting that person???s relationship with the patient. (b) Any adult son or daughter of the patient. (c) Either parent of the patient. (d) Any adult brother or sister of the patient. (e) Any adult grandchild of the patient. (f) Any grandparent of the patient. (g) Any adult aunt, uncle, niece, or nephew of the patient. (h) A close friend of the patient. (i) The agent with financial power of ip attorney or a conservator appointed in accordance with RSA 464-A. (j) The guardian of the patient???s estate. Current Coping/Education/Information Needs: Current coping questions and concerns have been addressed. 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 Current Functional Ability: Max assist OT/PT consults ordered Functional Status Prior to Admission: Independent and driving, but had been having a hard time getting around recently. Home Environment: Lives in a mobile home. 4 steps to get in, then 1 level living [address] [facility] [address] Social & Family Supports/Community Resources: Patient lives with his sister, Elizabeth, who is blind,but has a supportive daughter, Agustin who lives close by. Agustin is able to have her father come to her house if he needs to when discharged from the hospital. Extended Emergency Contact Information Primary Emergency Contact: Elizabeth Urena Address: [id number] Relation: Sibling Behavioral Health History: No Substance Use/Abuse: Smoking hx: former smoker EtOH hx: rare social drinker 2 beers Illicit drug use hx: No Other Pertinent/Service Specific Information: none Health/Prescription Coverage: Primary Insurance: [employer] OOS Secondary Insurance: N/A Prescription Coverage: As above Preferred Pharmacy: [facility] [place], [place] Other: none Primary Care Provider: Dr Michael, [facility] Patient/Caregiver Goals of Treatment: Figure out what is going on so he can get back to work. Potential Needs for Transition of Care: Discussed with patient and family levels of rehab including SNF, swing, acute and VNA home health and hospice care also discussed. Discussed need to accept first bed available when patient is medically ready. Rehab/SNF: if needed choices are: [facility]] Skilled Nursing Home Health: if needed [facility] DME: TBD Dialysis: No Community Resources: None Transportation: daughter able to transport Other: none Anticipated Barriers to Discharge/Special Considerations: none. Plan: A member of the Care Management team will continue to monitor progress, follow for continuity of care and assist with transition of care planning. Dina Reza RN, BSN, [facility] ICU Electric Meter Repairer Pager #[phone] Plan of Care - Olga Rosen RN - 04/30/2017 4:39 AM EST Problem: Patient Care Overview Goal: Plan of Care Review Outcome: Ongoing (Interventions Implemented as Appropriate) 04/30/17 0415 Coping/Psychosocial Plan Of Care Reviewed With patient Plan of Care Review Progress progress towards functional goals is fair OUTCOME EVALUATION NOTE: OUTCOME SUMMARY: Pt A&Ox4, Lungs clear throughout but dim, placed on 2L while asleep for desaturations into the 70s intermittently with periods of apnea, no complaints of SOB, frequent cough productive for clear thick sputum, breaths are shallow, pt is tachypnic. No reports of chest pain, in sinus tach with frequent PVCs, trigeminy at times, MD aware. HR in the low 100s-100 teens, BPs have been 100- teens to 130s over 60s-70s. Abdomen is tender on the left side to palpation, active BS in all quads, liquid BM overnight, no N/V. Left flank drain has maintained suction all shift putting out 15-30ml Q4hrs of nunes thick creamy liquid that is malodorous, flushed around midnight with 5ml. Pain rated around a 3/10 in the flank, denies need for medication. At around 0300 pt reported pain in right arm distal to IV, swelling noted, IV team came to assess (see note), IV removed, MD aware. Voiding spontaneously, concentrated yellow urine. Continues to refuse to turn in the bed as well as SCDs. PLAN MOVING FORWARD: Continue to monitor HR/cardiac status Assess for s/s of increasing infection Empty/assess left flank drain duplex for right arm pain/swelling? transpo to floor? INDIVIDUALIZED FALL PREVENTION INTERVENTIONS: Patient-specific fall risk factors per assessment: [current deficits]: Generalized weakness, pain, ECG leads, IVs Assistance [level of assistance required for transfers and ambulation]: Max assist Supervision [direct monitoring required during toileting and ADLs]: Hands on Surveillance [continuous indirect monitoring]: Bed alarm on, hourly rounding, call eaton in reach, telemetry Patient-specific fall prevention interventions for sensory deficits provided, if applicable: [X] No CPG GOAL OUTCOME EVALUATION: Plan of Care - Inez Gonzales RN - 04/29/2017 3:31 PM EST Problem: Patient Care Overview Goal: Plan of Care Review Outcome: Ongoing (Interventions Implemented as Appropriate) 04/29/17 0800 04/29/17 1508 Coping/Psychosocial Plan Of Care Reviewed With patient -- Plan of Care Review Progress -- improving OUTCOME EVALUATION NOTE: OUTCOME SUMMARY: Patient is AOx4 and agitated this morning. HR ST in 100-110s, MD aware. SBPs better today in the 100-120s. Patient tachypneic and dyspneic on exertions but sating well on RA mid 90s. Patient is upset this drain isnt working and complaining of increasing pressure in flank area. Per night RNLATOYA drainlost ability to suction around 4AM and paged the . at bedside this AM just before shift change and placed multiple tegaderms on the stopcock in attempt to restore suction and make a seal. No suction holding in the drain upon assessment at 7:15AM. Drain began leaking at approximately 1145. paged 3x about drain & increasing patient discomfort and said IR will be in to interrogate the drain. IR in to assess drain at 1500, replaced bulb and stockcock with success, see chart for details. Orders placed to advance patients diet as tolerated. Gave pt one jello with no adverse effects. Loera outand voiding spontaneously adequate amounts of concentrated urine. PLAN MOVING FORWARD: Continue monitoring drain and status. Monitor CV status. Encourage activity. Transfer to lower levelof care. INDIVIDUALIZED FALL PREVENTION INTERVENTIONS: Patient-specific fall risk factors per assessment: [current deficits]: IV therapy, pain, generalizedweakness Assistance [level of assistance required for transfers and ambulation]: 1 assist Supervision [direct monitoring required during toileting and ADLs]: Hands on Surveillance [continuous indirect monitoring]: Bed alarm on and audible, call eaton in reach, room near unit station, purposeful rounding Patient-specific fall prevention interventions for sensory deficits provided, if applicable: [X] No CPG GOAL OUTCOME EVALUATION: Improving. Goal: Individualization & Mutuality Outcome: Ongoing (Interventions Implemented as Appropriate) 04/28/17 0321 04/28/17 0538 Individualization Patient Specific Goals Treat infection -- Mutuality/Individual Preferences What Anxieties, Fears or Concerns Do You Have About Your Health or Care? -- Not sure if company still has insurance coverage- company's going under What Questions Do You Have About Your Health or Care? -- None What Information Would Help Us Give You More Personalized Care? -- I need water and food. (Pt NPO for now per MD orders) Goal: Fall Prevention-Safe Patient Handling Outcome: Ongoing (Interventions Implemented as Appropriate) 04/29/17 0422 04/29/17 0804/29/17 1400 Activity and Safety Assistive Device None -- -- Musculoskeletal Interventions Muscle Strengthening activity/mobility promoted;mobility in bed promoted -- -- Gonzales Fall Risk History of Falling -- 0 -- Secondary Diagnosis -- 15 -- Ambulatory Aids -- 0 -- Intravenous Therapy/Heparin/Saline Lock -- 20 -- Gait/Transferring -- 20 -- Mental Status -- 0 -- Score -- 55 -- OTHER Gonzales Fall Risk -- High -- Restraint Interventions Safety Promotion/Fall Prevention -- -- safety round/check completed;nonskid shoes/slippers when out of bed;fall prevention program maintained;activity supervised Positioning Body Position -- -- supine Goal: Infection Control Outcome: Ongoing (Interventions Implemented as Appropriate) 04/29/17 0804/29/17 1400 Safety Interventions Isolation Precautions -- standard precautions maintained Infection Prevention -- single patient room provided;rest/sleep promoted;environmental surveillance performed Coping Strategies Supportive Measures active listening utilized;decision-making supported;positive reinforcement provided;relaxation techniques promoted;verbalization of feelings encouraged -- Goal: Discharge Needs Assessment Outcome: Ongoing (Interventions Implemented as Appropriate) 04/28/17 0321 04/28/17 0538 04/29/17 0421 Discharge Needs Assessment Concerns To Be Addressed denies needs/concerns at this time -- -- Readmission Within The Last 30 Days -- -- no previous admission in last 30 days Equipment Needed After Discharge -- -- none Discharge Disposition -- -- still a patient Current Health Anticipated Changes Related to Illness -- -- none Activity/Self Care Review of Systems Equipment Currently Used at Home -- -- none Living Environment Transportation Available -- ambulance -- Problem: Infection, Risk/Actual (Adult) Goal: Infection Prevention/Resolution Patient will demonstrate the desired outcomes by discharge/transition of care. Outcome: Ongoing (Interventions Implemented as Appropriate) 04/29/17 0421 Infection, Risk/Actual (Adult) Infection Prevention/Resolution making progress toward outcome Problem: Skin Integrity Impairment, Risk/Actual (Adult) Goal: Identify Related Risk Factors and Signs and Symptoms Related risk factors and signs and symptoms are identified upon initiation of Human Response Clinical Practice Guideline (CPG) Outcome: Ongoing (Interventions Implemented as Appropriate) 04/29/17 0420 Skin Integrity Impairment, Risk/Actual Skin Integrity Impairment, Risk/Actual: Related Risk Factors edema;immobility;infection/disease process;surgery/procedure Signs and Symptoms (Skin Integrity Impairment) edema;exudate (purulent) Goal: Skin Integrity/Wound Healing Patient will demonstrate the desired outcomes by discharge/transition of care. Outcome: Ongoing (Interventions Implemented as Appropriate) 04/29/17 1508 Skin Integrity Impairment, Risk/Actual (Adult) Skin Integrity/Wound Healing making progress toward outcome Plan of Care - Olga Rosen RN - 04/29/2017 4:35 AM EST Problem: Patient Care Overview Goal: Plan of Care Review Outcome: Ongoing (Interventions Implemented as Appropriate) 04/29/17 0423 Coping/Psychosocial Plan Of Care Reviewed With patient Plan of Care Review Progress progress toward functional goals as expected OUTCOME EVALUATION NOTE: OUTCOME SUMMARY: A&OX4, Lung sounds clear in the upper lobes dim in the bases, intermittent apnea while sleeping overnight so put on 2L via NC with sats in the mid 90s, no complaints of SOB but tachypnic and takingshallow breaths. No chest pain, heart rhythm is sinus tach with rates in the 100-teens to 120, systolic BPs have been in the low 100s with MAPs all greater than 65. Pt has some generalized trace edema.Abdomen is obese, rounded, soft, nondistended but tender in all quads on palpation. No complaints ofN/V with active bowel sounds throughout, no BM this shift, remains on a clear liquid diet, asking for food. Draining adequate amounts of yellow concentrated urine via loera catheter. MIVF of NS runningat 150ml/hr. Left flank drain putting out small-moderate amounts of nunes/creamy malodorous drainage. 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 Pt has been rating pain as a 3/10 and denying the need for pain medicine. He reports the pain is around the site of the drain. TMAX was 37.4C. PLAN MOVING FORWARD: Continue to monitor for worsening signs of infection/temps as well as BPs Continue to assess drainage from left flank Monitor cardiac status/ tachycardia INDIVIDUALIZED FALL PREVENTION INTERVENTIONS: Patient-specific fall risk factors per assessment: [current deficits]: pain, generalized weakness, IVs, ECG leads, Loera Assistance [level of assistance required for transfers and ambulation]: Max assist Supervision [direct monitoring required during toileting and ADLs]: Hands on Surveillance [continuous indirect monitoring]: Telemetry, hourly rounding, bed alarm on Patient-specific fall prevention interventions for sensory deficits provided, if applicable: [X] No CPG GOAL OUTCOME EVALUATION: Plan of Care - Everton Gan RN - 04/28/2017 3:25 AM EST Problem: Patient Care Overview Goal: Plan of Care Review Outcome: Ongoing (Interventions Implemented as Appropriate) 04/28/17 0322 Coping/Psychosocial Plan Of Care Reviewed With patient Plan of Care Review Progress improving OUTCOME EVALUATION NOTE: OUTCOME SUMMARY: Pt states pain has been better since drain was placed, denies need for additional pain medication. Denies nausea, frustrated that he cannot eat or drink anything. Drain producing large amounts of malodorous nunes drainage. Resting between care, will continue to monitor. PLAN MOVING FORWARD: Monitor for s/s of infection, encourage hygiene, treat pain INDIVIDUALIZED FALL PREVENTION INTERVENTIONS: MEDIUM FALLS RISK Patient-specific fall risk factors per assessment: [current deficits]: Risk factors include infection, IV access, blood pressure medications Assistance [level of assistance required for transfers and ambulation]: SBA Supervision [direct monitoring required during toileting and ADLs]: Eyes Surveillance [continuous indirect monitoring]: NKE at bedside, purposeful rounding, bed/chair alarm Patient-specific fall prevention interventions for sensory deficits provided, if applicable: [X] N/A CPG GOAL OUTCOME EVALUATION: ED Triage - Kathryn Delgadillo RN - 04/27/2017 6:16 PM EST Pt reports abd pain since Thanksgiving. Reports not having had a BM in a couple days. Pain radiates to back L testicle and hips. Reports decreased appetite. Sitting upright in WC speaking in full sentences. 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 HEMOGRAM Routine 05/04/2017 7:36 Results for this AM EST procedure are i n the results section. DIFFERENTIAL, AUTOMATED Routine 05/04/2017 7:36 R esults for this AM EST procedure are i n the results section. CBC (WITH DIFF) Routine 05/04/2017 7:36 AM EST BASIC METABOLIC PANEL Routine 05/04/2017 7:36 Res ults for this (NON-FASTING) AM EST procedure are in the results section. BASIC METABOLIC PANEL STAT 05/03/2017 9:56 Res ults for this (NON-FASTING) AM EST procedure are in the results section. HEMOGRAM Routine 05/03/2017 4:39 Results for this AM EST procedure are i n the results section. DIFFERENTIAL, AUTOMATED Routine 05/03/2017 4:39 R esults for this AM EST procedure are i n the results section. CBC (WITH DIFF) Routine 05/03/2017 4:39 AM EST IR ALL DRAINAGE Routine 05/02/2017 2:53 Results f or this PROCEDURES PM EST procedure are i n the results section. SCAN, PERIPHERAL BLOOD Routine 05/02/2017 5:50 Re sults for this AM EST procedure are i n the results section. HEMOGRAM Routine 05/02/2017 5:50 Results for this AM EST procedure are i n the results section. DIFFERENTIAL, AUTOMATED Routine 05/02/2017 5:50 R esults for this AM EST procedure are i n the results section. CBC (WITH DIFF) Routine 05/02/2017 5:50 AM EST BASIC METABOLIC PANEL Routine 05/02/2017 5:50 Res ults for this (NON-FASTING) AM EST procedure are in the results section. HEMOGRAM Routine 05/01/2017 5:12 Results for this AM EST procedure are i n the results section. DIFFERENTIAL, AUTOMATED Routine 05/01/2017 5:12 R esults for this AM EST procedure are i n the results section. GOLD TUBE HOLD Routine 05/01/2017 5:12 Results fo r this AM EST procedure are i n the results section. CBC (WITH DIFF) Routine 05/01/2017 5:[address] ABDOMEN AND PELVIS W Routine 04/30/2017 3:27 R esults for this CONTRAST PM EST procedure are i n the results section. HEMOGRAM Routine 04/30/2017 2:20 Results for this AM EST procedure are i n the results section. DIFFERENTIAL, AUTOMATED Routine 04/30/2017 2:20 R esults for this AM EST procedure are i n the results section. CBC (WITH DIFF) Routine 04/30/2017 2:20 AM EST PHOSPHORUS Routine 04/30/2017 2:20 Results for this AM EST procedure are i n the results section. MAGNESIUM Routine 04/30/2017 2:20 Results for this AM EST procedure are i n the results section. BASIC METABOLIC PANEL Routine 04/30/2017 2:20 Res ults for this (NON-FASTING) AM EST procedure are in the results section. SCAN, PERIPHERAL BLOOD Routine 04/29/2017 1:28 Re sults for this AM EST procedure are i n the results section. HEMOGRAM Routine 04/29/2017 1:28 Results for this AM EST procedure are i n the results section. DIFFERENTIAL, AUTOMATED Routine 04/29/2017 1:28 R esults for this AM EST procedure are i n the results section. CBC (WITH DIFF) Routine 04/29/2017 1:28 AM EST BASIC METABOLIC PANEL Routine 04/29/2017 1:28 Res ults for this (NON-FASTING) AM EST procedure are in the results section. POCT GLUCOSE Routine 04/28/2017 4:28 Results for this PM EST procedure are i n the results section. HEMOGRAM Routine 04/28/2017 9:51 Results for this AM EST procedure are i n the results section. LACTATE, WHOLE BLOOD, Routine 04/28/2017 9:51 Res ults for this SEND TO LAB ([facility]) AM EST proce dure are in the results section. LACTATE, WHOLE BLOOD, Routine 04/28/2017 6:14 Res ults for this SEND TO LAB ([facility]) AM EST proce dure are in the results section. BLOOD CULTURE STAT 04/28/2017 6:14 Results for this AM EST procedure are i n the results section. BLOOD CULTURE STAT 04/28/2017 6:06 Results for this AM EST procedure are i n the results section. POCT GLUCOSE Routine 04/28/2017 5:19 Results for this AM EST procedure are i n the results section. BMP W/FASTING GLUCOSE Routine 04/28/2017 2:01 Res ults for this AM EST procedure are i n the results section. HEMOGRAM Routine 04/28/2017 2:01 Results for this AM EST procedure are i n the results section. DIFFERENTIAL, AUTOMATED Routine 04/28/2017 2:01 R esults for this AM EST procedure are i n the results section. CBC (WITH DIFF) Routine 04/28/2017 2:01 AM EST MAGNESIUM Routine 04/28/2017 2:01 Results for this AM EST procedure are i n the results section. CT RETROPERITONEAL STAT 04/27/2017 11:19 Resul ts for this ABSCESS DRAIN PM EST procedure are in the results section. ANAEROBIC CULTURE Routine 04/27/2017 10:50 Result s for this PM EST procedure are i n the results section. ABSCESS/WOUND ASP Routine 04/27/2017 10:50 CULTURE, AEROBIC AND PM EST ANAEROBIC ABSCESS/WOUND ASPIRATE Routine 04/27/2017 10:50 R esults for this CULTURE PM EST procedure are i n the results section. REQUEST FOR 2ND READ CT STAT 04/27/2017 6:38 R esults for this ABDOMEN AND PELVIS PM EST procedure are in the results section. HEMOGRAM STAT 04/27/2017 6:15 Results for this PM EST procedure are i n the results section. DIFFERENTIAL, AUTOMATED STAT 04/27/2017 6:15 R esults for this PM EST procedure are i n the results section. BLUE TUBE HOLD STAT 04/27/2017 6:15 Results fo r this PM EST procedure are i n the results section. LACTATE, WHOLE BLOOD, STAT 04/27/2017 6:15 Res ults for this SEND TO LAB ([facility]) PM EST proce dure are in the results section. CBC (WITH DIFF) STAT 04/27/2017 6:15 PM EST LIPASE STAT 04/27/2017 6:15 Results for this PM EST procedure are i n the results section. COMPREHENSIVE METABOLIC STAT 04/27/2017 6:15 R esults for this PANEL (NON-FASTING) PM EST procedur [...] PM Gilson Mcgee MD IMG CT ORDERABLES SCAN DOC: [employer] BPM DEVELOPER (05/05/2017 12:00 AM EST) Narrative 05/05/2017 12:00 AM EST This result has an attachment that is no t available. Ordered by an unspecified provider. Scanning Provider MEDIA MGR SCAN EXT ORDR/RSLT (ABNORMAL) Differential, Automated (05/04/2017 7:36 AM EST) [facility] Method Time Signature Neutrophils % 62.0 % [facility] Neutr Abs (ANC) 7.38 (H) 1.70 - [facility] 6.10 [facility] x10(3)/[facility] LABORATORY Lymphocytes % 19.8 % [facility] Lymphocytes Abs 2.4 0.9 - 3.2 [facility] x10(3)/[facility] LABORATORY Monocytes % 6.6 % [facility] Monocyte Abs 0.8 0.3 - 0.9 [facility] x10(3)/[facility] LABORATORY Eosinophils % 0.8 % [facility] Eosinophils Abs 0.1 0.0 - 0.4 [facility] x10(3)/[facility] LABORATORY Basophils % 0.5 % [facility] Basophils Abs 0.1 0.0 - 0.1 [facility] x10(3)/[facility] LABORATORY Immature Gran % 10.30 % [facility] Comment: Immature granulocytes(IG's)percentage an d absolute count will include metamyelocytes, myelocytes, and promyelo cytes. Blood smears from CBCs yielding IG's will be scanned manually for kang serrato. If this scan disagrees with the automated IG or if promyelocytes are not ed, a manual differential will be performed. Mehnaz Gran Abs 1.22 (H) 0.00 - 0.04 x10(3)/[facility] LABORATORY Specimen Anatomical Collection Method Collection Time Receive d Time (Source) Location / / Volume Laterality Blood specimen 05/04/2017 7:36 AM 018 7:51 (specimen) EST AM EST Resulting Agency Comment Spec In Lab Gislon Mcgee MD HEMATOLOGY ORDERABLES Performing Organization Address City/[facility]/[place] [address] (ABNORMAL) Hemogram (05/04/2017 7:36 AM EST) Analysis Performed At Patho logist Time Signature WBC 11.9 (H) 4.0 - 9.5 [facility] LABORATORY RBC 3.60 (L) 4.58 - [facility] 5.54 [facility] x10(6)/[facility] LABORATORY Hemoglobin 10.3 (L) 13.7 - [facility] 16[facility] gm/dL [facility] Hematocrit 32.2 (L) 40.5 - [facility] 48.5 % [facility] MCV 89.4 82.9 - [facility] 93.1 [facility] LABORATORY MCH 28.6 27.5 - [facility] 32.1 pg [facility] MCHC 32.0 32.0 - [facility] 35.7 gm/dL [facility] Platelets 348 145 - 357 [facility] x10(3)/[facility] LABORATORY RDWSD 47.7 (H) 36.0 - [facility] RAJENDRA 45.0 [facility] LABORATORY RDWCV 14.6 (H) 11.4 - [facility] 13.8 % [facility] MPV 8.3 7.6 - 12.9 [facility] LABORATORY nRBC % Auto 0.0 % [facility] nRBC Abs Auto 0.000 0.000 - [facility] 0.000 [facility] x10(3)/[facility] LABORATORY Specimen Anatomical Collection Method Collection Time Receive d Time (Source) Location / / Volume Laterality Blood specimen 05/04/2017 7:36 AM 018 7:51 (specimen) EST AM EST Resulting Agency Comment Spec In Lab Gilson Mcgee MD HEMATOLOGY ORDERABLES Performing Organization Address City/[facility]/[place]IP [place] [address] (ABNORMAL) Basic Metabolic Panel (non-fasting) (05/04/2017 7:36 AM EST) P athologist Signature Glucose Lvl 113 65 - 199 [facility] mg/dL [facility] Comment: Diabetes: >=200 mg/dL plus symp toms BUN 13 10 - 20 mg/dL [facility] Creatinine 1.20 0.80 - 1.50 mg/dL [facility] Sodium 132 (L) 135 - 145 mmol/L [facility] Potassium 4.1 3.5 - 5.0 mmol/L [facility] Comment: Please note: ??Patients with WBC >100,00 0 may have falsely elevated Potassium levels. ??For accurate Potassium quantif ication in these patients send serum separator tube (gold top) for subsequent determinations. ??Contact the Clinical Chemistry Laboratory if there are any qu estions. Chloride 95 (L) 98 - 107 mmol/L [facility] CO2 23 22 - 31 mmol/L [facility] Anion Gap 14 5 - 15 mmol/L [facility] LABOR[facility]ORY Calcium 8.6 8.5 - 10.5 mg/dL [facility] LABOR[facility]ORY Estimated GFR >60 >=60 [facility] LAB[facility] Comment: The reported eGFR should be multiplied b y 1.2 for patients. The MDRD is not an appropriate measure o f renal function for patients with body mass extremes or in patients with acute kidney failure. http://Science[employer] More/DHnkdep http://Science.[employer] More/DHMCnkf Specimen Anatomical Collection Method Collection Time Receive d Time (Source) Location / / Volume Laterality Blood specimen 05/04/2017 7:36 AM 018 7:51 (specimen) EST AM EST Resulting Agency Comment Spec In Lab Gilson Mcgee MD CHEMISTRY ORDERABLES Performing Organization Address City/State/ZIP Code Phon e Number [address] (ABNORMAL) Basic Metabolic Panel (non-fasting) (05/03/2017 9:56 AM EST) P athologist Signature Glucose Lvl 113 65 - 199 [facility] mg/dL [facility] Comment: Diabetes: >=200 mg/dL plus symp toms BUN 16 10 - 20 mg/dL [facility] LABOR[facility]ORY Creatinine 1.27 0.80 - 1.50 mg/dL [facility] Sodium 133 (L) 135 - 145 mmol/L [facility] Potassium 4.0 3.5 - 5.0 mmol/L [facility] Comment: Please note: ??Patients with WBC >100,00 0 may have falsely elevated Potassium levels. ??For accurate Potassium quantif ication in these patients send serum separator tube (gold top) for subsequent determinations. ??Contact the Clinical Chemistry Laboratory if there are any qu estions. Chloride 96 (L) 98 - 107 mmol/L [facility] CO2 21 (L) 22 - 31 mmol/L [facility] Anion Gap 16 (H) 5 - 15 mmol/L [facility]OR[facility]ORY Calcium 8.6 8.5 - 10.5 mg/dL [facility]OR[facility] Estimated GFR 58 (L) >=60 [facility] Comment: The reported eGFR should be multiplied b y 1.2 for patients. The MDRD is not an appropriate measure o f renal function for patients with body mass extremes or in patients with acute kidney failure. http://Science.[employer]/DHnkdep http://An[employer]/DHMCnkf Specimen Anatomical Collection Method Collection Time Receive d Time (Source) Location / / Volume Laterality Blood specimen 05/03/2017 9:56 AM 018 (specimen) EST 10:41 AM EST Resulting Agency Comment Spec In Lab Gilson Mcgee MD CHEMISTRY ORDERABLES Performing Organization Address City/State/[place] [address] (ABNORMAL) Differential, Automated (05/03/2017 4:39 AM EST) Patholo gist Method Time Signature Neutrophils % 65.3 % [facility] Neutr Abs (ANC) 9.17 (H) 1.70 - [facility] 6.10 [facility] x10(3)/[facility] LABORATORY Lymphocytes % 17.2 % [facility] Lymphocytes Abs 2.4 0.9 - 3.2 [facility] x10(3)/[facility] LABORATORY Monocytes % 6.7 % [facility] Monocyte Abs 0.9 0.3 - 0.9 [facility] x10(3)/[facility] LABORATORY Eosinophils % 0.6 % [facility] Eosinophils Abs 0.1 0.0 - 0.4 [facility] x10(3)/[facility] LABORATORY Basophils % 0.4 % [facility] Basophils Abs 0.1 0.0 - 0.1 [facility] x10(3)/[facility] LABORATORY Immature Gran % 9.80 % [facility] Comment: Immature granulocytes(IG's)percentage an d absolute count will include metamyelocytes, myelocytes, and promyelo cytes. Blood smears from CBCs yielding IG's will be scanned manually for concor dance. If this scan disagrees with the automated IG or if promyelocytes are not ed, a manual differential will be performed. Mehnaz Gran Abs 1.38 (H) 0.00 - 0.04 x10(3)/[facility] LABORATORY Specimen Anatomical Collection Method Collection Time Receive d Time (Source) Location / / Volume Laterality Blood specimen 05/03/2017 4:39 AM 018 4:56 (specimen) EST AM EST Resulting Agency Comment Spec In Lab Gilson Mcgee MD HEMATOLOGY ORDERABLES Performing Organization Address City/State/[place] [address] (ABNORMAL) Hemogram (05/03/2017 4:39 AM EST) Analysis Performed At Patho logist Time Signature WBC 14.0 (H) 4.0 - 9.5 [facility] x10(3)/[facility] LABORATORY RBC 3.53 (L) 4.58 - [facility] 5.54 [facility] x10(6)/[facility] LABORATORY Hemoglobin 10.0 (L) 13.7 - [facility] RAJENDRA 16.5 gm/dL [facility] LABORATORY Hematocrit 31.7 (L) 40.5 - [facility] 48.5 % [facility]ORY MCV 89.8 82.9 - [facility] LABORATORY MCH 28.3 27.5 - [facility] 32.1 pg [facility] LABORATORY MCHC 31.5 (L) 32.0 - [facility] RA[facility]DR[facility] 35.7 gm/dL [facility]OR[facility]ORY Platelets 355 145 - 357 [facility] x10(3)/[facility] LABORATORY RDWSD 48.7 (H) 36.0 - [facility]DR[facility] 45.0 [facility] LABORATORY RDWCV 14.7 (H) 11.4 - [facility] 13[facility]8 % [facility] LAB[facility]ATORY MPV 8.6 7.6 - 12.9 [facility] LABORATORY nRBC % Auto 0.0 % [facility]ORATORY nRBC Abs Auto 0.000 0.000 - [facility] x10(3)/[facility] LABORATORY Specimen Anatomical Collection Method Collection Time Receive d Time (Source) Location / / Volume Laterality Blood specimen 05/03/2017 4:39 AM 018 4:56 (specimen) EST AM EST Resulting Agency Comment Spec In Lab Gilson Mcgee MD HEMATOLOGY ORDERABLES Performing Organization Address City/State/[place] [address] IR All Drainage Procedures (05/02/2017 2:53 PM EST) Anatomical Region Laterality Modality X-Ray Angiography Specimen (Source) Anatomical Location Collection Method / Collectio n Time Received Time / Laterality Volume Narrative 05/02/2017 3:19 PM EST IR Procedure Note Procedure: ?? Left retroperitoneal drain exchange History/indication: ??61 yr old M patien t, presenting with abdominal pain; CT scan showed a large collection in the left retroperitoneum. Gram stain has revealed E. Coli. CT guided drainage done on 04/27. Upsizing of the drain requested to optimize output. Technique: ?? After obtaining informed c onsent the patient was positioned supine with the left side elevated. The existing tube and surrounding skin were prepped and draped in a sterile fas hion. 1% lidocaine was used as local anesthesia. The patient received s plit doses of intravenous fentanyl from the IR nurse while pulse, pressure, end tidal CO2 parameters and oxygen saturation were continuously minda tored. Over an Amplatz wire, the tube was exchanged for a 12 Fr drainage catheter. The locking loop was formed and 60 cc of nunes, purulent fluid was aspirated by syringe. The catheter was secured to the adjacent ski n with 2-0 nylon suture material. The patient tolerated the procedure well . Complications: ?None immediate; ??EB L=0 Medications: ??1% lidocaine (<10 cc); fe ntanyl 100 mcg Contrast: ??None injected Fluoroscopy time: ??0.8 minutes Findings: 1. Over the wire drain exchange and uspi zing to 12 Fr; leakage of air was likely due to side holes near the skin e xit site. 2. 60 cc of nunes, purulent fluid was aspi rated by syringe. Attending: ?Josefina Lemus MD ? I was present during the intraservice time as documented by the I R Nurse. Gilson Mcgee MD IMG IR ORDERABLES Scan, Peripheral Blood (05/02/2017 5:50 AM EST) Analysis Performed At Patho logist Time Signature Plat Estimate Normal [facility]OR[facility]ORY RBC Morphology Normal [facility]OR[facility] Platelet Clumps Present [facility] LABORATORY Specimen Anatomical Collection Method Collection Time Receive d Time (Source) Location / / Volume Laterality Blood specimen 05/02/2017 5:50 AM 018 6:09 (specimen) EST AM EST Resulting Agency Comment Spec In Lab Gilson Mcgee MD HEMATOLOGY ORDERABLES Performing Organization Address City/State/[place] [address] (ABNORMAL) Basic Metabolic Panel (non-fasting) (05/02/2017 5:50 AM EST) P athologist Signature Glucose Lvl 100 65 - 199 [facility] mg/dL [facility]OR[facility]ORY Comment: Diabetes: >=200 mg/dL plus symp toms BUN 18 10 - 20 mg/dL [facility] LABORATORY Creatinine 1.30 0.80 - 1.50 mg/dL [facility] LABORATORY Sodium 132 (L) 135 - 145 mmol/L [facility] LABORATORY Potassium 4.1 3.5 - 5.0 mmol/L [facility] LABORATORY Comment: Please note: ??Patients with WBC >100,00 0 may have falsely elevated Potassium levels. ??For accurate Potassium quantif ication in these patients send serum separator tube (gold top) for subsequent determinations. ??Contact the Clinical Chemistry Laboratory if there are any qu estions. Chloride 97 (L) 98 - 107 mmol/L [facility] LABORATORY CO2 21 (L) 22 - 31 mmol/L [facility] LABOR[facility]ORY Anion Gap 14 5 - 15 mmol/L [facility] LABORATORY Calcium 8.8 8.5 - 10.5 mg/dL [facility] LABORATORY Estimated GFR 56 (L) >=60 [facility] LABORATORY Comment: The reported eGFR should be multiplied b y 1.2 for patients. The MDRD is not an appropriate measure o f renal function for patients with body mass extremes or in patients with acute kidney failure. http://[email or web address]/DHnkdep [email or web address]://[email or web address] Specimen Anatomical Collection Method Collection Time Receive d Time (Source) Location / / Volume Laterality Blood specimen 05/02/2017 5:50 AM 018 6:09 (specimen) EST AM EST Resulting Agency Comment Spec In Lab Gilson Mcgee MD CHEMISTRY ORDERABLES Performing Organization Address City/State/[place] [address] (ABNORMAL) Differential, Automated (05/02/2017 5:50 AM EST) [employer] gist Method Time Signature Neutrophils % 68.7 % [facility] LABORATORY Neutr Abs (ANC) 11.64 (H) 1.70 - [facility] 6.10 [facility] x10(3)/[facility] LABORATORY Lymphocytes % 16.0 % [facility] LABORATORY Lymphocytes Abs 2.7 0.9 - 3.2 [facility] x10(3)/[facility] LABORATORY Monocytes % 5.9 % [facility] LABORATORY Monocyte Abs 1.0 (H) 0.3 - 0.9 [facility] x10(3)/[facility] LABORATORY Eosinophils % 0.6 % [facility] LABORATORY Eosinophils Abs 0.1 0.0 - 0.4 [facility] x10(3)/[facility] LABORATORY Basophils % 0.4 % [facility] LABORATORY Basophils Abs 0.1 0.0 - 0.1 [facility] x10(3)/[facility] LABORATORY Immature Gran % 8.40 % [facility] LABORATORY Comment: Immature granulocytes(IG's)percentage an d absolute count will include metamyelocytes, myelocytes, and promyelo cytes. Blood smears from CBCs yielding IG's will be scanned manually for concor dance. If this scan disagrees with the automated IG or if promyelocytes are not ed, a manual differential will be performed. Mehnaz Gran Abs 1.42 (H) 0.00 - 0.04 x10(3)/[facility] LABORATORY Specimen Anatomical Collection Method Collection Time Receive d Time (Source) Location / / Volume Laterality Blood specimen 05/02/2017 5:50 AM 018 6:09 (specimen) EST AM EST Resulting Agency Comment Spec In Lab Gilson Mcgee MD HEMATOLOGY ORDERABLES Performing Organization Address City/State/[place] [address] (ABNORMAL) Hemogram (05/02/2017 5:50 AM EST) Analysis Performed At Patho logist Time Signature WBC 17.0 (H) 4.0 - 9.5 [facility] x10(3)/[facility] LABORATORY RBC 3.56 (L) 4.58 - [facility] 5.54 [facility] x10(6)/[facility] LABORATORY Hemoglobin 10.2 (L) 13.7 - [facility] 16.5 gm/dL [facility] LABORATORY Hematocrit 32.1 (L) 40.5 - [facility] 48.5 % [facility] LABORATORY MCV 90.2 82.9 - [facility] 93.1 [facility] LABORATORY MCH 28.7 27.5 - [facility] JUNGCK 32.1 pg [facility] LABORATORY MCHC 31.8 (L) 32.0 - [facility] 35.7 gm/dL [facility] LABORATORY Platelets 381 (H) 145 - 357 [facility] x10(3)/[facility] LABORATORY RDWSD 48.5 (H) 36.0 - [facility] 45.0 [facility] LABORATORY RDWCV 14.6 (H) 11.4 - [facility] 13.8 % [facility] LABORATORY MPV 8.5 7.6 - 12.9 [facility] LABORATORY nRBC % Auto 0.0 % [facility] LABORATORY nRBC Abs Auto 0.000 0.000 - [facility] 0.000 [facility] x10(3)/[facility] LABORATORY Specimen Anatomical Collection Method Collection Time Receive d Time (Source) Location / / Volume Laterality Blood specimen 05/02/2017 5:50 AM 018 6:09 (specimen) EST AM EST Resulting Agency Comment Spec In Lab Gilson Mcgee MD HEMATOLOGY ORDERABLES Performing Organization Address City/[facility]/[place]IP [place] [address] Gold Tube HOLD (05/01/2017 5:12 AM EST) P athologist Signature Gold Hold Sample in [facility]. [facility] LABORATORY Specimen Anatomical Collection Method Collection Time Receive d Time (Source) Location / / Volume Laterality Blood specimen Venous Draw / 05/01/2017 5:12 AM 2017 5:27 (specimen) Unknown EST AM EST Gilson Mcgee MD CHEMISTRY ORDERABLES Performing Organization Address City/[facility]/ZIP [place] [address] (ABNORMAL) Differential, Automated (05/01/2017 5:12 AM EST) Patholo gist Method Time Signature Neutrophils % 77.8 % [facility] LABORATORY Neutr Abs (ANC) 14.34 (H) 1.70 - [facility] 6.10 [facility] x10(3)/[facility] LABORATORY Lymphocytes % 11.7 % [facility] LABORATORY Lymphocytes Abs 2.2 0.9 - 3.2 [facility] x10(3)/[facility] LABORATORY Monocytes % 4.7 % [facility] LABORATORY Monocyte Abs 0.9 0.3 - 0.9 [facility] x10(3)/[facility] LABORATORY Eosinophils % 0.6 % [facility] LABORATORY Eosinophils Abs 0.1 0.0 - 0.4 [facility] x10(3)/[facility] LABORATORY Basophils % 0.3 % [facility] LABORATORY Basophils Abs 0.1 0.0 - 0.1 [facility] x10(3)/[facility] LABORATORY Immature Gran % 4.90 % [facility] LABORATORY Comment: Immature granulocytes(IG's)percentage an d absolute count will include metamyelocytes, myelocytes, and promyelo cytes. Blood smears from CBCs yielding IG's will be scanned manually for concor dance. If this scan disagrees with the automated IG or if promyelocytes are not ed, a manual differential will be performed. Mehn[facility] Gran Abs 0.91 (H) 0.00 - 0.04 x10(3)/[facility] LABORATORY Specimen Anatomical Collection Method Collection Time Receive d Time (Source) Location / / Volume Laterality Blood specimen 05/01/2017 5:12 AM 018 5:27 (specimen) EST AM EST Resulting Agency Comment Spec In Lab Gilson Mcgee MD HEMATOLOGY ORDERABLES Performing Organization Address City/State/[place] [address] (ABNORMAL) Hemogram (05/01/2017 5:12 AM EST) Analysis Performed At Patho logist Time Signature WBC 18.4 (H) 4.0 - 9.5 [facility] x10(3)/[facility] LABORATORY RBC 3.34 (L) 4.58 - [facility] 5.54 [facility] x10(6)/[facility] LABORATORY Hemoglobin 9.6 (L) 13.7 - [facility] RA[facility]ENDR[facility] 16.5 gm/dL [facility] LABORATORY Hematocrit 29.9 (L) 40.5 - [facility] 48.5 % [facility] LABORATORY MCV 89.5 82.9 - [facility] LABORATORY MCH 28.7 27.5 - [facility] J[facility]COCK 32.1 pg [facility] LABORATORY MCHC 32.1 32.0 - [facility] RAJENDR[facility] 35.7 gm/dL [facility] LABORATORY Platelets 366 (H) 145 - 357 [facility] x10(3)/[facility] LABORATORY RDWSD 47.9 (H) 36.0 - [facility]OCK 45.0 [facility] LABORATORY RDWCV 14.7 (H) 11.4 - [facility] 13.8 % [facility] LABORATORY MPV 8.6 7.6 - 12.9 [facility] LABORATORY nRBC % Auto 0.0 % [facility] LABORATORY nRBC Abs Auto 0.000 0.000 - [facility] RAJENDR[facility] 0.000 [facility] x10(3)/[facility] LABORATORY Specimen Anatomical Collection Method Collection Time Receive d Time (Source) Location / / Volume Laterality Blood specimen 05/01/2017 5:12 AM 018 5:27 (specimen) EST AM EST Resulting Agency Comment Spec In Lab Gilson Mcgee MD HEMATOLOGY ORDERABLES Performing Organization Address City/State/[place] [address] Abdomen & Pelvis w Contrast (04/30/2017 3:27 PM EST) Anatomical Region Laterality Modality Abdomen, Pelvis Computed Tomography Specimen (Source) Anatomical Location Collection Method / Collectio n Time Received Time / Laterality Volume Addenda Addendum by Loraine Jesus MD on 05/2017 4:47 PM EST ADDENDUM #1 There are enlarged portacaval and common hepatic lymph nodes in the right upper quadrant, each measuring approximately 1 7 mm in short axis. These are nonspecific however can be enlarged with chronic hepatocellular disease and clinical correlation is needed. ORIGINAL REPORT EXAMINATION: ??CT ABDOMEN AND PELVIS W C ONTRAST CLINICAL HISTORY: ??s/p IR drain for lef t retroperitoneal abscess. ??Would now appreciate scan to determine etiology of abscess not that the collection is decompressed. ??PO and IV contrast. TECHNIQUE: Helical CT of the abdomen and pelvis was performed following the intravenous administration of contrast. 120 cc of Omnipaque 350 was given. Oral contrast was administered. COMPARISON: ??CT abdomen and pelvis 03/31 FINDINGS: Lower chest: New small left pleural effu elena and associated compressive atelectasis. Liver: Normal size and attenuation witho ut lesions. Bile ducts: Nondilated. Gallbladder: Multiple dependent radiopaq ue gallstones. No wall thickening or adjacent inflammation. Pancreas: Normal attenuation without ductal dilatation. Spleen: Splenomegaly up to 20 cm. Adrenals: Normal. Kidneys: Bilateral lobular contour with areas of scarring. Small nonobstructing bilateral calculi, better delineated on prior noncontrast exam. No hydronephrosis or focal lesions. The inf lammatory changes in the retroperitoneum about the left lower pole posteriorly Vasculature: No aneurysm. Minimal athero sclerosis. Lymph Nodes: No enlarged lymph nodes. Bowel: Nondilated, no wall thickening. A ppendix is normal. Peritoneum and mesentery: Interval place ment of the pigtail drain into the left retrocrural peritoneal abscess. The pigt ail is located in the subdiaphragmatic left upper quadrant. Decreased size of t he abscess, currently 6 x 11.2 x 17.6 cm, previously 11.6 x 14 x 21 cm. As bef ore, the collection is contiguous with the left psoas muscle. The collection sl ightly displaces the left kidney anteriorly, less than on prior exam. The re is residual left retroperitoneal fat stranding extending to the inferior pelv is. Abdominal wall: Foci of air in the right lower anterior abdominal wall likely related to injection. Urinary Bladder: Decompressed. Reproductive organs: Normal. Osseous structures: No suspicious lesion s. Nondisplaced the lateral right 10th rib fracture. Along the anterior aspect of the left 11th rib, there is an area of cortical thinning without discrete co rtical break. IMPRESSION: 1. ??Interval decrease in size of left r etroperitoneal abscess contiguous with the left psoas muscle. In the absence of a clear intra-abdominal or osseous source of infection, consider infection of a pre-existing hematoma. 2. ??Lateral right 10th rib fractures ei ther acute or subacute; correlation with history needed. 3. ??Area of cortical thinning of the an terior aspect of left 11th rib without definitive fracture. This finding is ind eterminate. If there is a history of malignancy, consider metastasis. I have personally reviewed the image(s) and the residents interpretation and agree with the findings, Loraine massey 04/30/2017 4:31 PM Impressions 04/30/2017 4:31 PM EST 1. ??Interval decrease in size of left retroperitoneal abscess contiguous with the left psoas muscle. In the absence of a clear intra-abdominal or osseous source of infection, consider infection of a pre-existing hematoma. 2. ??Lateral right 10th rib fractures ei ther acute or subacute; correlation with history needed. 3. ??Area of cortical thinning of the an terior aspect of left 11th rib without definitive fracture. This finding is ind eterminate. If there is a history of malignancy, consider metastasis. I have personally reviewed the image(s) and the residents interpretation and agree with the findings, Loraine massey 04/30/2017 4:31 PM Narrative 04/30/2017 4:31 PM EST EXAMINATION: ??CT ABDOMEN AND PELVIS W CONTRAST CLINICAL HISTORY: ??s/p IR drain for lef t retroperitoneal abscess. ??Would now appreciate scan to determine etiology of abscess not that the collection is decompressed. ??PO and IV contrast. TECHNIQUE: Helical CT of the abdomen and pelvis was performed following the intravenous administration of contrast. 120 cc of Omnipaque 350 was given. Oral contrast was administered. COMPARISON: ??CT abdomen and pelvis 03/31 FINDINGS: Lower chest: New small left pleural effu elena and associated compressive atelectasis. Liver: Normal size and attenuation witho ut lesions. Bile ducts: Nondilated. Gallbladder: Multiple dependent radiopaq ue gallstones. No wall thickening or adjacent inflammation. Pancreas: Normal attenuation without ductal dilatation. Spleen: Splenomegaly up to 20 cm. Adrenals: Normal. Kidneys: Bilateral lobular contour with areas of scarring. Small nonobstructing bilateral calculi, better delineated on prior noncontrast exam. No hydronephrosis or focal lesions. The inf lammatory changes in the retroperitoneum about the left lower pole posteriorly Vasculature: No aneurysm. Minimal athero sclerosis. Lymph Nodes: No enlarged lymph nodes. Bowel: Nondilated, no wall thickening. A ppendix is normal. Peritoneum and mesentery: Interval place ment of the pigtail drain into the left retrocrural peritoneal abscess. The pigt ail is located in the subdiaphragmatic left upper quadrant. Decreased size of t he abscess, currently 6 x 11.2 x 17.6 cm, previously 11.6 x 14 x 21 cm. As bef ore, the collection is contiguous with the left psoas muscle. The collection sl ightly displaces the left kidney anteriorly, less than on prior exam. The re is residual left retroperitoneal fat stranding extending to the inferior pelv is. Abdominal wall: Foci of air in the right lower anterior abdominal wall likely related to injection. Urinary Bladder: Decompressed. Reproductive organs: Normal. Osseous structures: No suspicious lesion s. Nondisplaced the lateral right 10th rib fracture. Along the anterior aspect of the left 11th rib, there is an area of cortical thinning without discrete co rtical break. Procedure Note Loraine Jesus MD - 04/30/2017Formatt ing of this note might be different from the original. EXAMINATION: CT ABDOMEN AND PELVIS W CON TRAST CLINICAL HISTORY: s/p IR drain for left retroperitoneal abscess. Would now appreciate scan to determine etiology of abscess not that the collection is decompressed. PO and IV contrast. TECHNIQUE: Helical CT of the abdomen and pelvis was performed following the intravenous administration of contrast. 120 cc of Omnipaque 350 was given. Oral contrast was administered. COMPARISON: CT abdomen and pelvis 2016 FINDINGS: Lower chest: New small left pleural effu elena and associated compressive atelectasis. Liver: Normal size and attenuation witho ut lesions. Bile ducts: Nondilated. Gallbladder: Multiple dependent radiopaq ue gallstones. No wall thickening or adjacent inflammation. Pancreas: Normal attenuation without ductal dilatation. Spleen: Splenomegaly up to 20 cm. Adrenals: Normal. Kidneys: Bilateral lobular contour with areas of scarring. Small nonobstructing bilateral calculi, better delineated on prior noncontrast exam. No hydronephrosis or focal lesions. The inf lammatory changes in the retroperitoneum about the left lower pole posteriorly Vasculature: No aneurysm. Minimal athero sclerosis. Lymph Nodes: No enlarged lymph nodes. Bowel: Nondilated, no wall thickening. A ppendix is normal. Peritoneum and mesentery: Interval place ment of the pigtail drain into the left retrocrural peritoneal abscess. The pigt ail is located in the subdiaphragmatic left upper quadrant. Decreased size of t he abscess, currently 6 x 11.2 x 17.6 cm, previously 11.6 x 14 x 21 cm. As bef ore, the collection is contiguous with the left psoas muscle. The collection sl ightly displaces the left kidney anteriorly, less than on prior exam. The re is residual left retroperitoneal fat stranding extending to the inferior pelv is. Abdominal wall: Foci of air in the right lower anterior abdominal wall likely related to injection. Urinary Bladder: Decompressed. Reproductive organs: Normal. Osseous structures: No suspicious lesion s. Nondisplaced the lateral right 10th rib fracture. Along the anterior aspect of the left 11th rib, there is an area of cortical thinning without discrete co rtical break. IMPRESSION 1. Interval decrease in size of left ret roperitoneal abscess contiguous with the left psoas muscle. In the absence of a clear intra-abdominal or osseous source of infection, consider infection of a pre-existing hematoma. 2. Lateral right 10th rib fractures eith er acute or subacute; correlation with history needed. 3. Area of cortical thinning of the ante rior aspect of left 11th rib without definitive fracture. This finding is ind eterminate. If there is a history of malignancy, consider metastasis. I have personally reviewed the image(s) and the residents interpretation and agree with the findings, Loraine massey 04/30/2017 4:31 PM Gilson Mcgee MD IMDerek CT ORDERABLES (ABNORMAL) Differential, Automated (04/30/2017 2:20 AM EST) Patholo gist Method Time Signature Neutrophils % 85.2 % [facility] LABOR[facility]ORY Neutr Abs (ANC) 17.56 (H) 1.70 - [facility] 6.10 [facility] x10(3)/[facility] LABORATORY Lymphocytes % 8.0 % [facility] LABORATORY Lymphocytes Abs 1.6 0.9 - 3.2 [facility] x10(3)/[facility] LABORATORY Monocytes % 3.2 % [facility] LABORATORY Monocyte Abs 0.7 0.3 - 0.9 [facility] x10(3)/[facility] LABORATORY Eosinophils % 0.5 % [facility] LABORATORY Eosinophils Abs 0.1 0.0 - 0.4 [facility] x10(3)/[facility] LABORATORY Basophils % 0.1 % [facility] LABORATORY Basophils Abs 0.0 0.0 - 0.1 [facility] x10(3)/[facility] LABORATORY Immature Gran % 3.00 % [facility]OR[facility]ORY Comment: Immature granulocytes(IG's)percentage an d absolute count will include metamyelocytes, myelocytes, and promyelo cytes. Blood smears from CBCs yielding IG's will be scanned manually for concor dance. If this scan disagrees with the automated IG or if promyelocytes are not ed, a manual differential will be performed. Mehnaz Gran Abs 0.62 (H) 0.00 - 0.04 x10(3)/[facility] LABORATORY Specimen Anatomical Collection Method Collection Time Receive d Time (Source) Location / / Volume Laterality Blood specimen 04/30/2017 2:20 AM 018 2:24 (specimen) EST AM EST Resulting Agency Comment Spec In Lab Gilson Mcgee MD HEMATOLOGY ORDERABLES Performing Organization Address City/State/[place] [address] (ABNORMAL) Hemogram (04/30/2017 2:20 AM EST) Analysis Performed At Patho logist Time Signature WBC 20.6 (H) 4.0 - 9.5 [facility] x10(3)/[facility] LABORATORY RBC 3.14 (L) 4.58 - [place] RAJENDRA 5.54 [facility] x10(6)/[facility] LABORATORY Hemoglobin 9.1 (L) 13.7 - [facility] RAJENDRA 16.5 gm/dL [facility] LABORATORY Hematocrit 28.0 (L) 40.5 - [facility] % [facility] LABORATORY MCV 89.2 82.9 - [facility] 93.1 [facility] LABORATORY MCH 29.0 27.5 - [facility] RAJENDRA 32.1 pg [facility] LABORATORY MCHC 32.5 32.0 - [facility] RAJENDRA 35.7 gm/dL [facility] LABORATORY Platelets 325 145 - 357 [facility] x10(3)/[facility] LABORATORY RDWSD 47.8 (H) 36.0 - [facility] 45.0 [facility] LABORATORY RDWCV 14.6 (H) 11.4 - [facility] 13.8 % [facility] LABORATORY MPV 8.5 7.6 - 12.9 [facility] LABORATORY nRBC % Auto 0.0 % [facility] LABORATORY nRBC Abs Auto 0.000 0.000 - [place] RAJENDRA 0.000 [facility] x10(3)/[facility] LABORATORY Specimen Anatomical Collection Method Collection Time Receive d Time (Source) Location / / Volume Laterality Blood specimen 04/30/2017 2:20 AM 018 2:24 (specimen) EST AM EST Resulting Agency Comment Spec In Lab Gilson Mcgee MD HEMATOLOGY ORDERABLES Performing Organization Address City/State/[facility] [place] [address] Phosphorus (04/30/2017 2:20 AM EST) P athologist Signature Phosphorus 4.2 2.5 - 4.5 [facility] RAJENDRA mg/dL [facility] LABORATORY Specimen Anatomical Collection Method Collection Time Receive d Time (Source) Location / / Volume Laterality Blood specimen 04/30/2017 2:20 AM 018 2:25 (specimen) EST AM EST Resulting Agency Comment Spec In Lab Gilson Mcgee MD CHEMISTRY ORDERABLES Performing Organization Address City/State/ZIP Code Phon e Number [address] Magnesium (04/30/2017 2:20 AM EST) P athologist Signature Magnesium 0.81 0.69 - 1.07 [facility] mmol/L [facility] LABORATORY Specimen Anatomical Collection Method Collection Time Receive d Time (Source) Location / / Volume Laterality Blood specimen 04/30/2017 2:20 AM 018 2:25 (specimen) EST AM EST Resulting Agency Comment Spec In Lab Gilson Mcgee MD CHEMISTRY ORDERABLES Performing Organization Address City/[facility]/ZIP Code Phon e Number [address] (ABNORMAL) Basic Metabolic Panel (non-fasting) (04/30/2017 2:20 AM EST) athologist Signature Glucose Lvl 103 65 - 199 [facility] mg/dL [facility] LABORATORY Comment: Diabetes: >=200 mg/dL plus symp toms BUN 22 (H) 10 - 20 mg/dL [facility] LABORATORY Creatinine 1.38 0.80 - 1.50 mg/dL [facility] LABORATORY Sodium 131 (L) 135 - 145 mmol/L [facility] LABORATORY Potassium 4.3 3.5 - 5.0 mmol/L [facility] LABORATORY Comment: Please note: ??Patients with WBC >100,00 0 may have falsely elevated Potassium levels. ??For accurate Potassium quantif ication in these patients send serum separator tube (gold top) for subsequent determinations. ??Contact the Clinical Chemistry Laboratory if there are any qu estions. Chloride 97 (L) 98 - 107 mmol/L [facility] LABORATORY CO2 19 (L) 22 - 31 mmol/L [facility] LABORATORY Anion Gap 15 5 - 15 mmol/L [facility] LABORATORY Calcium 8.6 8.5 - 10.5 mg/dL [facility] LABORATORY Estimated GFR 52 (L) >=60 [facility] LABORATORY Comment: The reported eGFR should be multiplied b y 1.2 for patients. The MDRD is not an appropriate measure o f renal function for patients with body mass extremes or in patients with acute kidney failure. [email or web address] [email or web address] Specimen Anatomical Collection Method Collection Time Receive d Time (Source) Location / / Volume Laterality Blood specimen 04/30/2017 2:20 AM 018 2:24 (specimen) EST AM EST Resulting Agency Comment Spec In Lab Gilson Mcgee MD CHEMISTRY ORDERABLES Performing Organization Address City/[facility]/ZIP Code Phon e Number [address] Scan, Peripheral Blood (04/29/2017 1:28 AM EST) P athologist Signature Plat Estimate Normal [facility] LABORATORY RBC Morphology Normal [facility] LABORATORY Specimen Anatomical Collection Method Collection Time Receive d Time (Source) Location / / Volume Laterality Blood specimen 04/29/2017 1:28 AM 018 2:09 (specimen) EST AM EST Resulting Agency Comment Spec In Lab Gilson Mcgee MD HEMATOLOGY ORDERABLES Performing Organization Address City/[facility]/ZIP Code Phon e Number [address] (ABNORMAL) Differential, Automated (04/29/2017 1:28 AM EST) Patholo gist Method Time Signature Neutrophils % 85.5 % [facility] LABORATORY Neutr Abs (ANC) 17.56 (H) 1.70 - [facility] 6.10 [facility] x10(3)/[facility] L LABORATORY Lymphocytes % 7.4 % [facility] LABORATORY Lymphocytes Abs 1.5 0.9 - 3.2 [facility] x10(3)/[facility] LABORATORY Monocytes % 4.8 % [facility] LABORATORY Monocyte Abs 1.0 (H) 0.3 - 0.9 [facility] x10(3)/[facility] LABORATORY Eosinophils % 0.3 % [facility] LABORATORY Eosinophils Abs 0.1 0.0 - 0.4 [facility] x10(3)/[facility] LABORATORY Basophils % 0.1 % [facility] LABORATORY Basophils Abs 0.0 0.0 - 0.1 [facility] x10(3)/[facility] LABORATORY Immature Gran % 1.90 % [facility] LABORATORY Comment: Immature granulocytes(IG's)percentage an d absolute count will include metamyelocytes, myelocytes, and promyelo cytes. Blood smears from CBCs yielding IG's will be scanned manually for concor dance. If this scan disagrees with the automated IG or if promyelocytes are not ed, a manual differential will be performed. Mehnaz Gran Abs 0.40 (H) 0.00 - 0.04 x10(3)/[facility] LABORATORY Specimen Anatomical Collection Method Collection Time Receive d Time (Source) Location / / Volume Laterality Blood specimen 04/29/2017 1:28 AM 018 2:09 (specimen) EST AM EST Resulting Agency Comment Spec In Lab Gilson Mcgee MD HEMATOLOGY ORDERABLES Performing Organization Address City/State/[place] [address] (ABNORMAL) Hemogram (04/29/2017 1:28 AM EST) Analysis Performed At Patho logist Time Signature WBC 20.5 (H) 4.0 - 9.5 [facility] x10(3)/[facility] LABORATORY RBC 3.02 (L) 4.58 - [facility] RAJENDRA 5.54 [facility] x10(6)/[facility] LABORATORY Hemoglobin 8.7 (L) 13.7 - [facility] 16[facility] gm/dL [facility] LABORATORY Hematocrit 27.0 (L) 40.5 - [facility] RAJENDRA 48.5 % [facility] LABORATORY MCV 89.4 82.9 - [place] RAJENDRA 93.1 fL [facility] LABORATORY MCH 28.8 27.5 - [place] RAJENDRA 32.1 pg [facility] LABORATORY MCHC 32.2 32.0 - [facility] 35.7 gm/dL [facility] LABORATORY Platelets 335 145 - 357 [facility] x10(3)/[facility] LABORATORY RDWSD 48.2 (H) 36.0 - [facility] 45.0 [facility] LABORATORY RDWCV 14.6 (H) 11.4 - [facility] 13.8 % [facility] LABORATORY MPV 8.7 7.6 - 12.9 [facility] LABORATORY nRBC % Auto 0.0 % [facility] LABORATORY nRBC Abs Auto 0.000 0.000 - [facility] 0.000 [facility] x10(3)/[facility] LABORATORY Specimen Anatomical Collection Method Collection Time Receive d Time (Source) Location / / Volume Laterality Blood specimen 04/29/2017 1:28 AM 018 2:09 (specimen) EST AM EST Resulting Agency Comment Spec In Lab Gilson Mcgee MD HEMATOLOGY ORDERABLES Performing Organization Address City/State/[place] [address] (ABNORMAL) Basic Metabolic Panel (non-fasting) (04/29/2017 1:28 AM EST) athologist Signature Glucose Lvl 107 65 - 199 [facility] mg/dL [facility] LABORATORY Comment: Diabetes: >=200 mg/dL plus symp toms BUN 23 (H) 10 - 20 mg/dL [facility] LABORATORY Creatinine 1.65 (H) 0.80 - 1.50 mg/dL [facility] LABORATORY Sodium 132 (L) 135 - 145 mmol/L [facility] LABORATORY Potassium 4.9 3.5 - 5.0 mmol/L [facility] LABORATORY Comment: Please note: ??Patients with WBC >100,00 0 may have falsely elevated Potassium levels. ??For accurate Potassium quantif ication in these patients send serum separator tube (gold top) for subsequent determinations. ??Contact the Clinical Chemistry Laboratory if there are any qu estions. Chloride 98 98 - 107 mmol/L [facility] LABORATORY CO2 19 (L) 22 - 31 mmol/L [facility] LABORATORY Anion Gap 15 5 - 15 mmol/L [facility] LABORATORY Calcium 8.5 8.5 - 10.5 mg/dL [facility] LABORATORY Estimated GFR 43 (L) >=60 [facility] LABORATORY Comment: The reported eGFR should be multiplied b y 1.2 for patients. The MDRD is not an appropriate measure o f renal function for patients with body mass extremes or in patients with acute kidney failure. [email or web address] [email or web address] Specimen Anatomical Collection Method Collection Time Receive d Time (Source) Location / / Volume Laterality Blood specimen 04/29/2017 1:28 AM 018 2:09 (specimen) EST AM EST Resulting Agency Comment Spec In Lab Gilson Mcgee MD CHEMISTRY ORDERABLES Performing Organization Address City/[facility]/ZIP Code Phon e Number [address] POCT Glucose (04/28/2017 4:28 PM EST) P athologist Signature POC Glucose 112 65 - 199 [facility] RAJENDRA mg/dL [facility] LABORATORY Comment: Supplemental ranges: <140 mg/dL before meals <180 mg/dL all other times of the day Specimen Anatomical Collection Method Collection Time Receive d Time (Source) Location / / Volume Laterality Blood specimen 04/28/2017 4:28 PM 017 4:28 (specimen) EST PM EST Gilson Mcgee MD POINT OF CARE TEST ORDERABLE S Performing Organization Address City/[facility]/ZIP Code Phon e Number [address] Lactate, whole blood, send to lab (Leb/CGP) (04/28/2017 9:51 AM EST) P athologist Signature Lactate WB 1.8 0.5 - 2.2 [facility] mmol/L [facility] LABORATORY Specimen Anatomical Collection Method Collection Time Receive d Time (Source) Location / / Volume Laterality Blood specimen 04/28/2017 9:51 AM 017 (specimen) EST 10:00 AM EST Resulting Agency Comment Spec In Lab Gilson Mcgee MD CHEMISTRY ORDERABLES Performing Organization Address City/[facility]/ZIP Code Phon e Number [address] (ABNORMAL) Hemogram (04/28/2017 9:51 AM EST) Analysis Performed At Patho logist Time Signature WBC 23.9 (H) 4.0 - 9.5 [facility] x10(3)/[facility] LABORATORY RBC 3.06 (L) 4.58 - [facility] PAT[facility]ENDR[facility] 5.54 [facility] x10(6)/[facility] LABORATORY Hemoglobin 8.8 (L) 13.7 - [facility] 16.5 gm/dL [facility] LABORATORY Hematocrit 27.1 (L) 40.5 - [facility] 48.5 % [facility] LABORATORY MCV 88.6 82.9 - [facility] 93.1 [facility] LABORATORY MCH 28.8 27.5 - [facility] 32.1 pg [facility] LABORATORY MCHC 32.5 32.0 - [facility] 35.7 gm/dL [facility] LABORATORY Platelets 343 145 - 357 [facility] x10(3)/[facility] LABORATORY RDWSD 46.8 (H) 36.0 - [facility] RAJENDRA 45.0 [facility] LABORATORY RDWCV 14.6 (H) 11.4 - [facility] RAJENDRA 13.8 % [facility] LABORATORY MPV 8.7 7.6 - 12.9 [facility] LABORATORY nRBC % Auto 0.0 % [facility] nRBC Abs Auto 0.000 0.000 - [facility] 0.000 [facility] x10(3)/[facility] LABORATORY Specimen Anatomical Collection Method Collection Time Receive d Time (Source) Location / / Volume Laterality Blood specimen 04/28/2017 9:51 AM 017 (specimen) EST 10:00 AM EST Resulting Agency Comment Spec In Lab Gilson Mcgee MD HEMATOLOGY ORDERABLES Performing Organization Address City/State/[place] [address] (ABNORMAL) Lactate, whole blood, send to lab (Leb/CGP) (04/28/2017 6:14 AM EST) P athologist Signature Lactate WB 2.8 (H) 0.5 - 2.2 [facility] mmol/L [facility] LABORATORY Specimen Anatomical Collection Method Collection Time Receive d Time (Source) Location / / Volume Laterality Blood specimen 04/28/2017 6:14 AM 017 6:24 (specimen) EST AM EST Resulting Agency Comment Spec In Lab Gilson Mcgee MD CHEMISTRY ORDERABLES Performing Organization Address City/[facility]/[place] [address] Blood culture (04/28/2017 6:14 AM EST) Patholo gist Method Time Signature Blood Culture No growth ANTWON DREW at 5 days. [facility] LABORATORY Specimen Anatomical Collection Method Collection Time Receive d Time (Source) Location / / Volume Laterality Blood specimen 04/28/2017 6:14 AM 017 7:19 (specimen) EST AM EST Comment: RH Resulting Agency Comment Spec In Lab Gilson Mcgee MD MICROBIOLOGY - BLOOD ORDERAB LES Performing Organization Address City/[facility]/ZIP [place] [address] Blood culture (04/28/2017 6:06 AM EST) Patholo gist Method Time Signature Blood Culture No growth ANTWON DREW at 5 days. [facility] LABORATORY Specimen Anatomical Collection Method Collection Time Receive d Time (Source) Location / / Volume Laterality Blood specimen 04/28/2017 6:06 AM 017 7:19 (specimen) EST AM EST Comment: LH Resulting Agency Comment Spec In Lab Gilson Mcgee MD MICROBIOLOGY - BLOOD ORDERAB LES Performing Organization Address City/[facility]/ZIP [place] [address] POCT Glucose (04/28/2017 5:19 AM EST) P athologist Signature POC Glucose 128 65 - 199 [facility] RA[facility] mg/dL [facility] LABORATORY Comment: Supplemental ranges: <140 mg/dL before meals <180 mg/dL all other times of the day Specimen Anatomical Collection Method Collection Time Receive d Time (Source) Location / / Volume Laterality Blood specimen 04/28/2017 5:19 AM 017 5:19 (specimen) EST AM EST Gilson Mcgee MD POINT OF CARE TEST ORDERABLE S Performing Organization Address City/State/ZIP Code Phon e Number [address] Magnesium (04/28/2017 2:01 AM EST) P athologist Signature Magnesium 0.71 0.69 - 1.07 [facility] mmol/L [facility] LABORATORY Specimen Anatomical Collection Method Collection Time Receive d Time (Source) Location / / Volume Laterality Blood specimen Venous Draw / 04/28/2017 2:01 AM 2016 2:13 (specimen) Unknown EST AM EST Resulting Agency Comment Spec In Lab Jaspreet Alberts MD CHEMISTRY ORDERABLES Performing Organization Address City/State/ZIP Code Phon e Number [address] (ABNORMAL) Differential, Automated (04/28/2017 2:01 AM EST) Patholo gist Method Time Signature Neutrophils % 87.4 % [facility] LABORATORY Neutr Abs (ANC) 18.54 (H) 1.70 - [facility] 6.10 [facility] x10(3)/[facility] LABORATORY Lymphocytes % 5.8 % [facility] LABORATORY Lymphocytes Abs 1.2 0.9 - 3.2 [facility] x10(3)/[facility] LABORATORY Monocytes % 5.1 % [facility] LABORATORY Monocyte Abs 1.1 (H) 0.3 - 0.9 [facility] x10(3)/[facility] LABORATORY Eosinophils % 0.2 % [facility] LABORATORY Eosinophils Abs 0.0 0.0 - 0.4 [facility] x10(3)/[facility] LABORATORY Basophils % 0.2 % [facility] LABORATORY Basophils Abs 0.0 0.0 - 0.1 [facility] x10(3)/[facility] LABORATORY Immature Gran % 1.30 % [facility] LABORATORY Comment: Immature granulocytes(IG's)percentage an d absolute count will include metamyelocytes, myelocytes, and promyelo cytes. Blood smears from CBCs yielding IG's will be scanned manually for concor dance. If this scan disagrees with the automated IG or if promyelocytes are not ed, a manual differential will be performed. Mehnaz Gran Abs 0.27 (H) 0.00 - 0.04 x10(3)/[facility] LABORATORY Specimen Anatomical Collection Method Collection Time Receive d Time (Source) Location / / Volume Laterality Blood specimen 04/28/2017 2:01 AM 017 2:12 (specimen) EST AM EST Resulting Agency Comment Spec In Lab Jaspreet Alberts MD HEMATOLOGY ORDERABLES Performing Organization Address City/State/[place] [address] (ABNORMAL) Hemogram (04/28/2017 2:01 AM EST) Analysis Performed At Patho logist Time Signature WBC 21.2 (H) 4.0 - 9.5 [facility] x10(3)/[facility] LABORATORY RBC 3.20 (L) 4.58 - [facility] x10(6)/[facility] LABORATORY Hemoglobin 9.3 (L) 13.7 - [facility] 16.5 gm/dL [facility] LABORATORY Hematocrit 28.7 (L) 40.5 - [facility] 48.5 % [facility] LABORATORY MCV 89.7 82.9 - [facility] 93.1 [facility] LABORATORY MCH 29.1 27.5 - [facility] RAJENDRA 32.1 pg [facility] LABORATORY MCHC 32.4 32.0 - [facility] 35.7 gm/dL [facility] LABORATORY Platelets 337 145 - 357 [facility] x10(3)/[facility] LABORATORY RDWSD 47.2 (H) 36.0 - [facility] RAJENDRA 45.0 [facility] LABORATORY RDWCV 14.4 (H) 11.4 - [facility] 13.8 % [facility] LABORATORY MPV 8.4 7.6 - 12.9 [facility] LABORATORY nRBC % Auto 0.0 % [facility] LABORATORY nRBC Abs Auto 0.000 0.000 - [facility] RAJENDRA 0.000 [facility] x10(3)/[facility] LABORATORY Specimen Anatomical Collection Method Collection Time Receive d Time (Source) Location / / Volume Laterality Blood specimen 04/28/2017 2:01 AM 017 2:12 (specimen) EST AM EST Resulting Agency Comment Spec In Lab Jaspreet Alberts MD HEMATOLOGY ORDERABLES Performing Organization Address City/State/[place] [address] (ABNORMAL) BMP w/fasting Glucose (04/28/2017 2:01 AM EST) athologist Signature Glucose 102 (H) 65 - 99 [facility] Fasting mg/dL [facility] LABORATORY Comment: ?Fasting* Glucose Interpretive C riteria Normal ?65-99 mg/dL Impaired Fasting glucose ?100-125 mg/dL Consistent with Diabetes Mellitus ? >or= 126 mg/dL *Fasting is defined as no caloric intake for at least 8 hours In the absence of unequivocal hypergly cemia a plasma glucose value of >or= 126 mg/dL should be repeated on a subseq uent day. Diagnosis and Classification of Diabetes Mellitus, Position Statement from the [place] [employer]. ??Diabete s Care, Volume 33, Supplement 1, Apr 2009 BUN 22 (H) 10 - 20 mg/dL [facility] LABORATORY Creatinine 1.75 (H) 0.80 - 1.50 mg/dL [facility] LABORATORY Sodium 130 (L) 135 - 145 mmol/L [facility] LABORATORY Potassium 4.9 3.5 - 5.0 mmol/L [facility] LABORATORY Comment: Please note: ??Patients with WBC >100,00 0 may have falsely elevated Potassium levels. ??For accurate Potassium quantif ication in these patients send serum separator tube (gold top) for subsequent determinations. ??Contact the Clinical Chemistry Laboratory if there are any qu estions. Chloride 96 (L) 98 - 107 mmol/L [facility] LABORATORY CO2 20 (L) 22 - 31 mmol/L [facility] LABORATORY Anion Gap 14 5 - 15 mmol/L [facility] LABORATORY Calcium 8.4 (L) 8.5 - 10.5 mg/dL [facility] LABORATORY Estimated GFR 40 (L) >=60 [facility] LABORATORY Comment: The reported eGFR should be multiplied b y 1.2 for patients. The MDRD is not an appropriate measure o f renal function for patients with body mass extremes or in patients with acute kidney failure. [email or web address] [email or web address] Specimen Anatomical Collection Method Collection Time Receive d Time (Source) Location / / Volume Laterality Blood specimen 04/28/2017 2:01 AM 017 2:12 (specimen) EST AM EST Resulting Agency Comment Spec In Lab Jaspreet Alberts MD CHEMISTRY ORDERABLES Performing Organization Address City/State/Z[place] [address] Guided Drain Retroperitoneal Abscess (04/27/2017 11:19 PM EST) Anatomical Region Laterality Modality Computed Tomography Specimen (Source) Anatomical Location Collection Method / Collectio n Time Received Time / Laterality Volume Addenda Addendum by Sumeet Salinas MD on 2017 12:45 PM EST Fentanyl only administered. Impressions 04/27/2017 10:59 PM EST : Technically successful drainage. Plan: bulb suction drainage, flush with 5-10 cc NS q 8h, record outputs Resident/Fellow: Ingris Attending: ?? I, Dr. Salinas, was present throughout the procedure. I was present during the intraservice ti me as documented by the IR Nurse. ?? Narrative 04/27/2017 10:59 PM EST IR PROCEDURE NOTE ??: ?? CT-guided left retroperitoneal abscess drain placement ?? INDICATION : pain, left psoas-retroperit degroot abscess TECHNIQUE: After discussing risks (inclu ding infection and hemorrhage), and benefits, patient consented to the p rocedure. ??Due to the painful nature of the procedure, split doses of fentanyl and versed were administered by the IR nurse during cont inuous monitoring of pulse, blood pressure and oxygen saturation. ?? Lesion was localized with CT. ??After st erile preparation of the overlying skin, ??7 cc 1% lidocaine SQ was adminis tered for anesthesia, and an 18 ga needle was advanced under CT guidance in to the collection. ??Over an .035 guidewire, tract was dilated to 10 Fr, a nd a 10 Fr locking pigtail drain with multiple side-holes along its lengt h was placed. ??Catheter was secured to the skin and left to bulb suc tion drainage. ??Post-procedure CT images were obtained. ??Patient tolerate d the procedure well. ??There were no immediate complications. Contrast : ??0 cc Omnipaque 350. ? E BL : 4 cc. FINDINGS: retroperitoneal abscess extend ing from left psoas to sub-diaphragm, displacing kidney anterio rly. 450 cc purulent material initially aspirated. Jaspreet Alberts MD IMG CT ORDERABLES Anaerobic Culture (04/27/2017 10:50 PM EST) [employer] Crystal Clear Vision Method Time Signature Anaerobic No anaerobic ANTWON [facility] organisms [facility] LABORATORY Specimen Anatomical Location / Collection Method Collection Sunny e Received Time (Source) Laterality / Volume Specimen from RETROPERITONEAL / 04/27/2017 10:50 04/28 abscess Unknown PM EST 7:18 AM EST (specimen) Comment: 61 Y.O. MALE WITH HX OF ABDOMIN AL PAIN THAT PATIENT STATES PREDOMINATELY BEGAN APPROXIMATELY 5 DAYS AGO. PER MERVIN ENT, HE RECENT UNDERWENT ORCHIECTOMY FOR TESTICULAR PAIN, AND APPROX 5 DAYS AGO D EVELOPED WORSENING ABDOMINAL PAIN. STATES HE IS CONSTANTLY Resulting Agency Comment Spec In Lab Jaspreet Alberts MD MICROBIOLOGY - GENERAL ORDER TIAN Performing Organization Address City/State/ZIP Code [place] [address] (ABNORMAL) Abscess/Wound Aspirate Culture (04/27/2017 10:50 PM EST) Component Value Ref Test Analysis Performed At [employer] Crystal Clear Vision Range Method Time Signature Abscess/Wound Many Escherichia ANWTON Aspirate coli (A) [facility] LABORATORY Gram Stain Moderate White Blood Cells seen ANTWON No microorganisms seen. [facility] OCK (A) [facility] LABORATORY Organism Escherichia coli ANTWON (A) [facility] LABORATORY Specimen Anatomical Location / Collection Method Collection Sunny e Received Time (Source) Laterality / Volume Specimen from RETROPERITONEAL / 04/27/2017 10:50 04/28 abscess Unknown PM EST 7:18 AM EST (specimen) Comment: 61 Y.O. MALE WITH HX OF ABDOMIN AL PAIN THAT PATIENT STATES PREDOMINATELY BEGAN APPROXIMATELY 5 DAYS AGO. PER MERVIN ENT, HE RECENT UNDERWENT ORCHIECTOMY FOR TESTICULAR PAIN, AND APPROX 5 DAYS AGO D EVELOPED WORSENING ABDOMINAL PAIN. STATES HE IS CONSTANTLY Resulting Agency Comment Spec In Lab Organism Antibiotic Method Susceptibility Escherichia coli Amikacin MICROSCAN METHOD Sensitive Escherichia coli Ampicillin MICROSCAN METHOD Sensitive Escherichia coli Ampicillin + Sulbactam MICROSCAN METHOD Sensiti ve Escherichia coli Aztreonam MICROSCAN METHOD Sensitive Escherichia coli Cefazolin MICROSCAN METHOD Sensitive Escherichia coli Cefepime MICROSCAN METHOD Sensitive Escherichia coli Ceftazidime MICROSCAN METHOD Sensitive Escherichia coli Ceftriaxone MICROSCAN METHOD Sensitive Escherichia coli Cefuroxime MICROSCAN METHOD Sensitive Escherichia coli Ciprofloxacin MICROSCAN METHOD Sensitive Escherichia coli Gentamicin MICROSCAN METHOD Sensitive Escherichia coli Levofloxacin MICROSCAN METHOD Sensitive Escherichia coli Meropenem MICROSCAN METHOD Sensitive Escherichia coli Piperacillin/Tazobactam MICROSCAN METHOD Sensit kaity Escherichia coli Tetracycline MICROSCAN METHOD Sensitive Escherichia coli Tigecycline MICROSCAN METHOD Sensitive Escherichia coli Tobramycin MICROSCAN METHOD Sensitive Escherichia coli Trimethoprim/Sulfa MICROSCAN METHOD Sensitive Jaspreet Alberts MD MICROBIOLOGY - GENERAL ORDER TIAN Performing Organization Address City/State/[place] [address] Request For 2nd Read CT Abdomen & [...] pelvis was performed without intravenous contrast at [facility] on 04/27/2017 at 1325 hours. [...] pelvis was performed without intravenous contrast at [facility] on 04/27/2017 at 1325 hours. [...] Alberts MD IMG OUTSIDE INTERPRETATION O RDERABLES (ABNORMAL) Comprehensive metabolic panel (non-fasting) (04/27/2017 6:15 PM EST) P athologist Signature Glucose Lvl 113 65 - 199 [facility] mg/dL [facility] LABORATORY Comment: Diabetes: >=200 mg/dL plus symp toms BUN 23 (H) 10 - 20 mg/dL [facility] LABORATORY Creatinine 1.65 (H) 0.80 - 1.50 mg/dL [facility] LABORATORY Sodium 134 (L) 135 - 145 mmol/L [facility] LABORATORY Potassium 5.0 3.5 - 5.0 mmol/L [facility] LABORATORY Comment: Please note: ??Patients with WBC >100,00 0 may have falsely elevated Potassium levels. ??For accurate Potassium quantif ication in these patients send serum separator tube (gold top) for subsequent determinations. ??Contact the Clinical Chemistry Laboratory if there are any qu estions. Chloride 95 (L) 98 - 107 mmol/L [facility] LABORATORY CO2 Not Perf 22 - 31 mmol/L [facility] LABOR[facility]ORY Comment: Add-on request. Sample too old to perform test. Anion Gap Unable to Calculate 5 - 15 mmol/L [facility] LABORATORY Calcium 8.9 8.5 - 10.5 mg/dL [facility] LABORATORY Total Protein 7.9 6.1 - 8.0 gm/dL [facility] LABORATORY Albumin 2.9 (L) 3.2 - 5.2 gm/dL [facility] LABORATORY AST 15 0 - 39 unit/L [facility] LABORATORY ALT 11 0 - 55 unit/L [facility] LABORATORY Alk Phos 95 40 - 120 unit/L [facility] LABORATORY Total Bilirubin 0.8 0.2 - 1.3 mg/dL [facility] LABORATORY Estimated GFR 43 (L) >=60 [facility] LABORATORY Comment: The reported eGFR should be multiplied b y 1.2 for patients. The MDRD is not an appropriate measure o f renal function for patients with body mass extremes or in patients with acute kidney failure. http://Anctu/DHnkdep http://Anctu/DHMCnkf Specimen Anatomical Collection Method Collection Time Receive d Time (Source) Location / / Volume Laterality Blood specimen Venous Draw / 04/27/2017 6:15 PM 2016 6:40 (specimen) Unknown EST PM EST Resulting Agency Comment Spec In Lab Alec Valenzuela MD CHEMISTRY ORDERABLES Performing Organization Address City/[facility]/ZIP Code Phon e Number [address] Blue Tube HOLD (04/27/2017 6:15 PM EST) P athologist Signature Blue Hold Sample in [facility]. [facility] LABORATORY Specimen Anatomical Collection Method Collection Time Receive d Time (Source) Location / / Volume Laterality Blood specimen Venous Draw / 04/27/2017 6:15 PM 2016 6:29 (specimen) Unknown EST PM EST Alec Valenzuela MD HEMATOLOGY ORDERABLES Performing Organization Address City/[facility] [place] [address] (ABNORMAL) Lactate, whole blood, send to lab (Leb/CGP) (04/27/2017 6:15 PM EST) P athologist Signature Lactate WB 2.5 (H) 0.5 - 2.2 [facility] mmol/L [facility] Specimen Anatomical Collection Method Collection Time Receive d Time (Source) Location / / Volume Laterality Blood specimen Venous Draw / 04/27/2017 6:15 PM 2016 6:29 (specimen) Unknown EST PM EST Resulting Agency Comment Spec In Lab Alec Valenzuela MD CHEMISTRY ORDERABLES Performing Organization Address City/[facility]/ZIP [facility] [place] [address] (ABNORMAL) Differential, Automated (04/27/2017 6:15 PM EST) Patholo gist Method Time Signature Neutrophils % 79.9 % [facility] LABORATORY Neutr Abs (ANC) 14.05 (H) 1.70 - [facility] 6.10 [facility] x10(3)/[facility] LABORATORY Lymphocytes % 11.2 % [facility] LABORATORY Lymphocytes Abs 2.0 0.9 - 3.2 [facility] x10(3)/[facility] LABORATORY Monocytes % 7.0 % [facility] LABORATORY Monocyte Abs 1.2 (H) 0.3 - 0.9 [facility] x10(3)/[facility] LABORATORY Eosinophils % 0.6 % [facility] LABORATORY Eosinophils Abs 0.1 0.0 - 0.4 [facility] x10(3)/[facility] LABORATORY Basophils % 0.2 % [facility] LABORATORY Basophils Abs 0.0 0.0 - 0.1 [facility] x10(3)/[facility] LABORATORY Immature Gran % 1.10 % [facility] LABORATORY Comment: Immature granulocytes(IG's)percentage an d absolute count will include metamyelocytes, myelocytes, and promyelo cytes. Blood smears from CBCs yielding IG's will be scanned manually for concor dance. If this scan disagrees with the automated IG or if promyelocytes are not ed, a manual differential will be performed. Mehanz Gran Abs 0.20 (H) 0.00 - 0.04 x10(3)/[facility] LABORATORY Specimen Anatomical Collection Method Collection Time Receive d Time (Source) Location / / Volume Laterality Blood specimen 04/27/2017 6:15 PM 017 6:29 (specimen) EST PM EST Resulting Agency Comment Spec In Lab Alec Valenzuela MD HEMATOLOGY ORDERABLES Performing Organization Address City/State/[place] [address] (ABNORMAL) Hemogram (04/27/2017 6:15 PM EST) Analysis Performed At [facility] logist Time Signature WBC 17.6 (H) 4.0 - 9.5 [facility] LABORATORY RBC 3.70 (L) 4.58 - [facility]54 [facility] x10(6)/[facility] LABORATORY Hemoglobin 10.7 (L) 13.7 - [facility] 16.5 gm/dL [facility] LAB[facility]ATORY Hematocrit 33.5 (L) 40.5 - [facility] 48.[facility] % [facility] MCV 90.5 82.9 - [facility] 93.1 [facility] LABORATORY MCH 28.9 27.5 - [facility] 32.1 pg [facility] LAB[facility]AT[facility] MCHC 31.9 (L) 32.0 - [facility] 35.7 gm/dL [facility] LAB[facility]ATORY Platelets 399 (H) 145 - 357 [facility] x10(3)/[facility] LABORATORY RDWSD 48.1 (H) 36.0 - [facility] 45.0 [facility] LABORATORY RDWCV 14.6 (H) 11.4 - [facility] 13.8 % [facility] LABORATORY MPV 8.4 7.6 - 12.9 [facility] LABORATORY nRBC % Auto 0.0 % [facility] LABORATORY nRBC Abs Auto 0.000 0.000 - [facility] 0.000 [facility] x10(3)/[facility] LABORATORY Specimen Anatomical Collection Method Collection Time Receive d Time (Source) Location / / Volume Laterality Blood specimen 04/27/2017 6:15 PM 017 6:29 (specimen) EST PM EST Resulting Agency Comment Spec In Lab Alce Valenzuela MD HEMATOLOGY ORDERABLES Performing Organization Address City/State/[place] [address] Lipase (04/27/2017 6:15 PM EST) P athologist Signature Lipase 48 0 - 60 [facility] unit/L [facility] LABORATORY Specimen Anatomical Collection Method Collection Time Receive d Time (Source) Location / / Volume Laterality Blood specimen 04/27/2017 6:15 PM 017 6:29 (specimen) EST PM EST Resulting Agency Comment Spec In Lab Alec Valenzuela MD CHEMISTRY ORDERABLES Performing Organization Address City/State/ZIP Code Ph[place] [address] documented in this encounter Visit Diagnoses Diagnosis Retroperitoneal abscess Other retroperitoneal abscess Sepsis, due to unspecified organism Personal history of tobacco use, present ing hazards to health Retroperitoneal abscess Other retroperitoneal abscess documented in this encounter Admitting Diagnoses Diagnosis Retroperitoneal abscess Other retroperitoneal abscess documented in this encounter Administered Medications Inactive Administered Medications - up to 3 most recent administrations Medication Order MAR Action Action Date Dose Rate Site acetaminophen (OFIRMEV) Given 04/28/2017 12:38 AM 1,000 mg 400 mL/hr injection 1,000 mg EST 1,000 mg, Intravenous, at 400 mL/hr, ONCE, 1 dose, On 04/27/17 at 2118, Maximum dose of acetaminophen is 4000 mg from all sources in 24 hours., STAT acetaminophen (TYLENOL) tablet 650 mg 650 mg, Oral, EVERY 6 HOURS SCHEDULED, First dose on F ri 05/03/17 at 1330, Until Discontinued, Maximum dose of acetaminophen is 4000 mg from all sources in 24 hours., Routine atorvastatin (LIPITOR) tablet 40 mg Given 05/03/2017 6:11 PM EST 40 mg 40 mg, Oral, EVERY EVENING, First dose on 05/03/17 at 1700, Until Discontinued, Routine calcium carbonate (TUMS) chewable tablet 500 Given 07/2017 8:44 PM EST 500 mg mg 500 mg, Oral, 2 TIMES DAILY PRN, Starting on [place] 05/02/17 at 2033, Until 05/04/17 at 1337, Heartburn, Routine ceFEPime (MAXIPIME) injection 2 g Given 05/01/2017 8:34 PM EST 2 g 2 g, Intravenous, EVERY 12 HOURS SCHEDULED (2 times per day), First dose (after last modification) on 04/28/17 at 0900, Until Discontinued, 1. Reconstitute 2000 mg vial of ceFEPime with 10 mL of Sterile Water for Injection. Agitate until in solution. Resulting concentration is roughly 160 mg/mL. 2. Withdraw full contents of vial into 20 mL syringe. 3. Administer over 5 minutes via slow IV push. Give immediately after preparation. , Routine Given 05/01/2017 8:44 AM EST 2 g Given 04/30/2017 9:45 PM EST 2 g fentaNYL (PF) 50 mcg/mL injection 1 dose, Starting on 04/27/17 at 2157, Until Sat at 2158, MACY VELÁZQUEZ: cabinet override fentaNYL (PF) 50 mcg/mL injection Given 05/02/2017 2:15 PM EST 50 mcg 1 dose, Starting on Colleen 05/02/17 at 1410, Until [place] 05/02/17 at 1415, Isabel Tirado: cabinet override fentaNYL 50 mcg/mL multi-dose injection Given 04/27/2017 10:45 PM EST 50 mcg 25-50 mcg, Intravenous, EVERY 5 MIN PRN, Starting on 04/27/17 at 2150, Until 04/27/17 at 2316, Pain, per unit protocol, - Start dose [...] and verbal order., Angio/IR (Intra-Procedure), Routine Given 04/27/2017 10:40 PM EST 50 mcg Given 04/27/2017 10:35 PM EST 50 mcg fentaNYL 50 mcg/mL multi-dose injection Given 05/02/2017 2:30 PM EST 50 mcg 25-50 mcg, Intravenous, EVERY 5 MIN PRN, Starting on [place]leen 05/02/17 at 1351, Until [place]leen 05/02/17 at 1452, Pain, per unit protocol, - Start dose [...] supervision and verbal order., Angio/IR (Intra-Procedure), Routine heparin (Porcine) subcutaneous injection Given 018 8:44 AM EST 5,000 Units 5,000 Units 5,000 Units, Subcutaneous, EVERY 12 HOURS SCHEDULED (2 times per day), First dose on 04/28/17 at 0900, Until Discontinued, Routine Given 04/30/2017 9:44 PM EST 5,000 Units Given 04/30/2017 9:28 AM EST 5,000 Units heparin (Porcine) subcutaneous injection Given 018 8:19 AM EST 5,000 Units 5,000 Units 5,000 Units, Subcutaneous, EVERY 12 HOURS SCHEDULED (2 times per day), First dose (after last reorder) on Sat05/01/17 at 2100, Until Discontinued, Routine Given 05/03/2017 8:09 PM EST 5,000 Units Given 05/03/2017 8:11 AM EST 5,000 Units iohexol (OMNIPAQUE) 350 mg/mL solution 0-200 Given 05/2017 3:28 PM EST 120 mLs mL 0-200 mL, Intravenous, ONCE PRN, 1 dose, Starting on Tu04/30/17 at 1528, Until Tu04/30/17 at 1528, Per Protocol, Warning Vesicant/Irritant Medication , Radiology Contrast, Routine iohexol (OMNIPAQUE) 350 mg/mL solution 5 0 mL 50 mL, Other, ONCE PRN, 1 dose, Starting on [place] 05/02/17 at 1445, Until 05/04/17 at 1337, Per Protocol, Warning Vesicant/Irritant Medic ation , Angio/IR (Intra-Procedure), Routine iohexol (OMNIPAQUE) radiology oral prep (50 Given 05/2017 12:25 PM EST 240 mLs mL of oral contrast) 240 mL, Oral, ONCE, 1 dose, On Sat04/30/17 at 1130, 8 ounce cup = 240 mL of [...] iohexol (OMNIPAQUE) radiology oral prep (50 Given 05/2017 12:30 PM EST 240 mLs mL of oral contrast) 240 mL, Oral, ONCE, 1 dose, On Sat04/30/17 at 1230, 8 ounce cup = 240 mL of [...] a sink. Properly dispose of container., Routine lactated Ringers 1,000 mL IV bolus New Bag 04/27/2017 7:52 PM EST 500 mL/hr at 500 mL/hr, Intravenous, ONCE, 1 dose, On 04/27/17 at 1916 lactated Ringers infusion 1,000 New Bag 04/28/2017 12:38 AM ES T 1,000 mLs 100 mL/hr mL 1,000 mL, at 100 mL/hr, Intravenous, CONTINUOUS, Starting on 04/28/17 at 0045, Until Sat04/28/17 at 0802 lidocaine (XYLOCAINE) 10 mg/mL (1 %) Given 04/27/2017 10:[address] 10 mg injection 10 mg 10 mg, Subcutaneous, ONCE, 1 dose, On 04/27/17 at 2152, For use in Interventional Radiology (IR) only for procedure with direct provider supervision and verbal order., Angio/IR (Intra-Procedure), Routine lisinopril (PRINIVIL;ZESTRIL) tablet 40 mg Given 05/04/2017 8:17 AM EST 40 mg 40 mg, Oral, DAILY, First dose on Sat05/01/17 at 1545, Until Discontinued, Routine Given 05/03/2017 8:11 AM EST 40 mg Given 05/02/2017 9:03 AM EST 40 mg magnesium sulfate 2 g in sterile water New Bag 04/28/2017 6:28 AM EST 2 g 25 mL/hr 50 mL 2 g, Intravenous, ONCE, 1 dose, On 04/28/17 at 0615, Administer over 120 Minutes metroNIDAZOLE (FLAGYL) 500 mg in New Bag 05/02/2017 2:56 AM 500 mg 200 mL/hr sodium chloride 0.9% 100 mL EST 500 mg, Intravenous, EVERY 8 HOURS, First dose on 04/28/17 at 1000, Until Discontinued, Administer over 30 Minutes, Indication for (Active or Suspected): Anaerobic infection-GI/Intrabdominal New Bag 05/01/2017 5:35 PM EST 500 mg 200 mL/hr New Bag 05/01/2017 10:00 AM EST 500 mg 200 mL/hr morphine 2 mg/mL carpuject 1 mg Given 04/27/2017 7:52 PM EST 1 mg 1 mg, Intravenous, EVERY 2 HOURS PRN, Starting on 04/27/17 at 1833, Until 04/27/17 at 2032, Pain, Routine morphine 2 mg/mL carpuject 2 mg Given 04/27/2017 8:42 PM EST 2 mg 2 mg, Intravenous, EVERY 2 HOURS PRN, Starting on 04/27/17 at 2031, Until Sat05/03/17 at 1306, Pain, For breakthrough pain, Routine ondansetron (ZOFRAN) injection 4-8 mg Given 04/30/2017 9:08 PM EST 4 mg 4-8 mg, Intravenous, EVERY 8 HOURS PRN, Starting on 04/28/17 at 0020, Until 05/04/17 at 1337, Nausea, Start with 4mg and if ineffective in 30 minutes, give an additional 4mg If multiple antiemetics are ordered, give ondansetron first. ondansetron (ZOFRAN) tablet 4-8 mg 4-8 mg, Oral, EVERY 8 HOURS PRN, Startin g on 04/28/17 at 0020, Until 05/04/17 at 1337, Nausea, Vomiting, If multiple antiemetics are ordered, use ondansetron first. PO Preferred. If patient unable to take PO, may give IV if ordered. Start with 4mg and if ineffective in 45 minutes, give an add itional 4mg. If unable to take PO, may give IV., Routine oxyCODONE (ROXICODONE) immediate release tablet 5 mg 5 mg, Oral, EVERY 4 HOURS PRN, Starting on Sat05/03/17 at 1307, Until 05/04/17 at 1337, Pain, for pain >4/10, Routine pantoprazole (PROTONIX) tablet 20 mg Given 05/02/2017 11:20 PM EST 20 mg 20 mg, Oral, ONCE, 1 dose, On [place]leen 05/02/17 at 2300, DO NOT CRUSH OR OPEN, Routine pantoprazole (PROTONIX) tablet 40 mg Given 05/04/2017 8:17 AM EST 40 mg 40 mg, Oral, DAILY, First dose on [place] 04/28/17 at 0900, Until Discontinued, DO NOT CRUSH OR OPEN, Routine Given 05/03/2017 8:11 AM EST 40 mg Given 05/02/2017 9:04 AM EST 40 mg sodium chloride 0.9 % flush 5 mL Given 05/04/2017 8:20 AM EST 5 mLs 5 mL, Intravenous, 2 TIMES DAILY, First dose on 04/28/17 at 0045, Until Discontinued, Routine Given 05/03/2017 8:10 PM EST 5 mLs Given 05/03/2017 8:13 AM EST 5 mLs sodium chloride 0.9 % flush 5 mL Given 04/27/2017 10:35 PM EST 5 mLs 5 mL, Intravenous, EVERY 12 HOURS, First dose on 04/27/17 at 2153, Until Discontinued, Day of Surgery (Day of Procedure), Routine sodium chloride 0.9% 1,000 mL IV bolus New Bag 04/28/2017 12:16 AM EST Intravenous, ONCE, 1 dose, On 04/27/17 at 2119 sodium chloride 0.9% 1,000 mL IV bolus New Bag 04/28/2017 5:43 AM EST Intravenous, ONCE, 1 dose, On 04/28/17 at 0600 sodium chloride 0.9% 1,000 mL IV bolus New Bag 04/28/2017 8:09 AM EST Intravenous, ONCE, 1 dose, On 04/28/17 at 0815 sodium chloride 0.9% 1,000 mL IV bolus New Bag 04/28/2017 6:51 PM EST 250 mL/hr Intravenous, ONCE, 1 dose, On 04/28/17 at 1830 sodium chloride 0.9% infusion New Bag 04/30/2017 4:55 AM EST 100 mL/hr 100 mL/hr 100 mL/hr, Intravenous, CONTINUOUS, Starting on 04/28/17 at 0830, Until Sat04/30/17 at 0911 Rate/Dose Verify 04/29/2017 7:00 PM EST 100 mL/hr 100 mL/hr Rate/Dose Change 04/29/2017 8:39 AM EST 100 mL/hr 100 mL/hr sulfamethoxazole-trimethoprim (BACTRIM DS) Given 05/04 8:17 AM EST 2 tablets 800-160 mg per tablet 2 tablet 2 tablet, Oral, EVERY 12 HOURS SCHEDULED (2 times per day), First dose on Sat05/02/17 at 1100, Until Discontinued, Routine Given 05/03/2017 8:09 PM EST 2 tablets Given 05/03/2017 8:12 AM EST 2 tablets documented in this encounter Active and Recently Administered Medications Times are shown in EST. Scheduled Medication Order 05/02/2017 05/03/2017 05/04/2017 acetaminophen (TYLENOL) tablet 650 mg 13 30 (Not Given - Provider: Aileen Resendiz RN - Reason: Patient/family refused)1800 (Not Given - Provider: Aileen Resendiz RN - Reason: Patient/family refused) 0000 (Not Given - Provider: Melissa Solomon RN - Reason: Patient/family refused)0600 (Not Given - Provider: Melissa Solomon RN - Reason: Patient/family refused) 650 mg, Oral, EVERY 6 HOURS SCHEDULED, F irst dose on Sat05/03/17 at 1330, Until Discontinued, Maximum dose of acetaminophen is 4000 mg from all sources in 24 hours., Routine atorvastatin (LIPITOR) tablet 40 mg 1810 (Given - Provider: Aileen Resendiz, MEET) 40 mg, Oral, EVERY EVENING, First dose o n Sat05/03/17 at 1700, Until Discontinued, Routine heparin (Porcine) subcutaneous injection 5,000 Units 0 903 (Given - Provider: Inocencio Reyna, MEET)2045 (Given - Provider: Gilma Haas, MEET) 0811 (Given - Provider: Aileen Resendiz, MEET)2008 (Given - Provider: Melissa Solomon, MEET) 0819 (Given - Provider: Susan Barnes RN) 5,000 Units, Subcutaneous, EVERY 12 HOUR S SCHEDULED (2 times per day), First dose on Sat05/01/17 at 2100, Until Discontinued, Routine lisinopril (PRINIVIL;ZESTRIL) tablet 40 mg 0903 (Given - Provider: Inocencio Reyna, MEET) 0811 (Given - Provider: Aileen Resendiz, MEET) 0817 (Gi jasbir - Provider: Susan Barnes, RN) 40 mg, Oral, DAILY, First dose on 07/14 at 1545, Until Discontinued, Routine metroNIDAZOLE (FLAGYL) 500 mg in sodium chloride 0.9% 100 mL (CANCELED) 0256 (New Bag - Provider: Gilma Haas, MEET)0326 (Stopped - Provider: Gilma Haas RN) 500 mg, Intravenous, EVERY 8 HOURS, Firs t dose on 04/28/17 at 1000, Until Discontinued, Administer over 30 Minutes, Indication for (Active or Suspected): Anaerobic infection-GI/Intrabdominal pantoprazole (PROTONIX) tablet 20 mg (COMPLETED) 2319 (Given - Provider: Gilma Haas RN) 20 mg, Oral, ONCE, 1 dose, [place] 05/02/17 at 2300, DO NOT CRUSH OR OPEN, Routine pantoprazole (PROTONIX) tablet 40 mg 09 (Given - Pro vider: Inocencio Reyna RN) 08 (Given - Provider: Aileen Resendiz RN) 08 (Gi jasbir - Provider: Susan Barnes, MEET) 40 mg, Oral, DAILY, First dose on Sun at 0900, Until Discontinued, DO NOT CRUSH OR OPEN, Routine sodium chloride 0.9 % flush 5 mL 09 (Given - Provide r: Inocencio Reyna RN)2044 (Given - Provider: Gilma Haas RN) 812 (Given - Provider: Aileen Resendiz RN)2009 (Given - Provider: Melissa Solomon, MEET) 819 (Given - Provider: Susan Barnes, MEET) 5 mL, Intravenous, 2 TIMES DAILY, First dose on 04/28/17 at 0045, Until Discontinued, Routine sulfamethoxazole-trimethoprim (BACTRIM DS) 800-160 mg per tablet 2 tablet 112 (Given - Provider: Inocencio Reyna RN)2043 (Given - Provider: Gilma Haas RN - Comment: additional tablet missing. Will page pharmacy) 811 (Given - Provider: Aileen Resendiz RN)2008 (Given - Provider: Melissa Solomon, RN) 0817 (Given - Provider: Susan Barnes, MEET) 2 tablet, Oral, EVERY 12 HOURS SCHEDULED (2 times per day), First dose on Colleen 05/02/17 at 1100, Until Discontinued, Routine PRN Medication Order 05/02/2017 05/03/2017 05/04/2017 calcium carbonate (TUMS) chewable tablet 500 mg 2043 ( Given - Provider: Gilma Haas, RN) 500 mg, Oral, 2 TIMES DAILY PRN, Startin g Colleen 05/02/17 at 2033, Until 05/04/17 at 1337, Heartburn, Routine fentaNYL 50 mcg/mL multi-dose injection (CANCELED) 143 0 (Given - Provider: Isabel Tirado RN) 25-50 mcg, Intravenous, EVERY 5 MIN PRN, Starting Colleen 05/02/17 at 1351, Until Colleen 05/02/17 at 1452, Pain, per unit protocol, - Start dose 50 mcg (reduce dose to 25 mcg if history of sedation sensitivity). - Titration dose 25-50 mcg IV, (based on patient response) every 3 minutes PRN, to maintain procedural pain less than 2 per pain Scale. Maximum dose: 50 mcg/dose, 250 mcg/hour For use in Interventional R adiology (IR) only for procedural sedati on with direct provider supervision and verbal order., Angio/IR (Intra-Procedure), Routine iohexol (OMNIPAQUE) 350 mg/mL solution 50 mL 1446 (Not Given - Provider: Nakul Diallo - Reason: Entered in Error - Comment: no contrast was given) 50 mL, Other, ONCE PRN, 1 dose, Starting Colleen 05/02/17 at 1445, Until 05/04/17 at 1337, Per Protocol, Warning Vesicant/Irritant Medication , Angio/IR (Intra-Procedure), Routine lidocaine (XYLOCAINE) 10 mg/mL (1 %) injection 3 mg 3 mg (0.3 mL), Subcutaneous, ONCE PRN, 1 dose, Starting 04/28/17 at 0020, Until 05/04/17 at 1337, for discomfort with PIV insertion, Routine ondansetron (ZOFRAN) injection 4-8 mg(Linked Group 1) 4-8 mg, Intravenous, EVERY 8 HOURS PRN, Starting 04/28/17 at 0020, Until 05/04/17 at 1337, Nausea, Start with 4mg and if ineffective in 30 minutes, give an additional 4mg If multiple antiemetics are ordered, give ondansetron first. ondansetron (ZOFRAN) tablet 4-8 mg(Linked Group 1) 4-8 mg, Oral, EVERY 8 HOURS PRN, Startin g 04/28/17 at 0020, Until 05/04/17 at 1337, Nausea, Vomiting, If multiple antiemetics are ordered, use ondansetron first. PO Preferred. If patient unabl e to take PO, may give IV if ordered. St art with 4mg and if ineffective in 45 minutes, give an additional 4mg. If unable to take PO, may give IV., Routine oxyCODONE (ROXICODONE) immediate release tablet 5 mg 5 mg, Oral, EVERY 4 HOURS PRN, Starting 05/03/17 at 1307, Until 05/04/17 at 1337, Pain, for pain >4/10, Routine sodium chloride 0.9 % flush 5-20 mL 5-20 mL, Intravenous, EVERY 1 MIN PRN, S tarting 04/28/17 at 0020, Until 05/04/17 at 1337, flush, Flush pertains to all indwelling lines. Flush per protocol found in the job aid using the link provided on this medication record., Routine No Frequency Medication Order 05/02/2017 05/03/2017 05/04/2017 fentaNYL (PF) 50 mcg/mL injection (COMPLETED) 1415 (Gi jasbir - Provider: Isabel Tirado, RN) 1 dose, Starting Colleen 05/02/17 at 1410, Unt il Colleen 05/02/17 at 1415, Isabel Tirado: cabinet override Linked Groups Order Group 1: ondansetron (ZOFRAN) tablet 4-8 mgJump to med 4-8 mg, Oral, EVERY 8 HOURS PRN, Startin g 04/28/17 at 0020, Until 05/04/17 at 1337, Nausea, Vomiting
If multiple antiemetics are ordered, use ondansetron first. PO Preferred . If patient unable to take PO, may give IV if ordered. Start with 4mg and if ineffective in 45 minutes, give an additional 4mg. If unable to take PO, may give IV.
Routine Or ondansetron (ZOFRAN) injection 4-8 mgJump to med 4-8 mg, Intravenous, EVERY 8 HOURS PRN, Starting 04/28/17 at 0020, Until 05/04/17 at 1337, Nausea
Start with 4mg and if ineffective in 30 minutes, give an additional 4mg If mu ltiple antiemetics are ordered, give ond ansetron first.
documented in this encounter Care Teams Tape Cutting Machine Operator Relationship Specialty Start Date End Date Odalys Laird MD PCP - General Internal Medicine 04/27/[address] [place] [address] documented as of this encounter
--- OUTSIDE RECORDS SUMMARY | 2022-01-19 01:24 | XMS_ITS | Encounter Summary ---
:1955 Author Organization [facility] [place] [address] Care Team Providers Name Role Phone Odalys Laird MD Primary Care Provider Encounter Details Date Type Department Care Team Description 05/06/2017 Orders Only General Surgery at [facility] [place] [address] Social History Tobacco Use Types Packs/Day [...] on filedocumented in this encounter Care Teams Crnp Relationship Specialty Start Date End Date Odalys Laird MD PCP - General Internal Medicine 04/27/[address] [place], [place] [address] documented as of this encounter
--- OUTSIDE RECORDS SUMMARY | 2022-01-19 01:24 | XMS_ITS | Encounter Summary ---
:1955 Author Organization [facility] [address] Care Team Providers Name Role Phone Odalys Laird MD Primary Care Provider Encounter Details Date Type Department Care Team Description 05/05/2017 Orders Only General Surgery at [facility], Julio C Retrop eritoneal abscess AGUSTÍN Fontanez MD [facility] [address] [place] [facility] [id number] [place] [address] [phone] Social History Tobacco Use Types Packs/Day Years [...] abscess documented in this encounter Care Teams Inspector Air Carrier Relationship Specialty Start Date End Date Odalys Laird MD PCP - General Internal Medicine 04/27/[address] [place] [address] documented as of this encounter
--- OUTSIDE RECORDS SUMMARY | 2022-01-19 01:24 | XMS_ITS | Encounter Summary ---
:1955 [place] [address] Care Team Providers Name Role Phone Odalys Laird MD Primary Care Provider Encounter Details Date Type Department Care Team Description 04/27/2017 Hospital Encounter Radiology Library at Hebert Mcgee MD [facility] [place] [address] [place] [address] [phone] (Wo rk) Social History Tobacco Use Types [...] Name Priority Date/Time Associated Diagnosis Comme nts FILM LIBRARY Routine 04/27/2017 12:00 AM Results for this STORAGE ONLY CT EST procedure ar e in ABDOMEN AND PELVIS the resul ts section. documented in this encounter Results Film Library- Storage Only CT Abdomen & Pelvis (04/27/2017 12:00 AM EST) Specimen (Source) Anatomical Location Collection Method / Collectio n Time Received Time / Laterality Volume Narrative RAD - 04/27/2017 2:50 PM EST This exam is for storage only and is aut o-finalizing. Gilson Mcgee MD IMG FILM LIBRARY ORDERABLES Performing Organization Address City/State/ZIP Code Phon e Number RAD [place], [place] documented in this encounter Visit Diagnoses Not on filedocumented in this encounter Care Teams Manager Medicare Marketing Relationship Specialty Start Date End Date Odalys Laird MD PCP - General Internal Medicine 04/27/[address] [place] [address] documented as of this encounter
--- OUTSIDE RECORDS SUMMARY | 2022-01-19 01:25 | XMS_ITS | Encounter Summary ---
:1955 Demographics Home Phone Preferred Language Unknown Marital Status Unknown Anabaptism Affiliation Unknown Race Unknown Ethnic Group Unknown Author Organization [facility] Address [address] [place] [address] Care Team Providers Name Role Phone Unavailable Primary Care Provider Unavailable Encounter Details Date Type Department Care Team Description 02/22/2020 Lab Requisition [facility] Outr Resulting Lab, Pathology & Laboratory Provider [facility] [address] [place] [address] Social History Tobacco Use Types Packs/Day Years Used Date Never Assessed Sex Assigned at Date Recorded Not on file documented as of this encounter Plan of Treatment Not on filedocumented as of this encounter Procedures Procedure Name Priority Date/Time Associated Diagnosis Comme nts COVID-19 TEST [facility] Today 02/22/2020 22:00 LAB PCR EDT COVID-19 TESTING Routine 02/22/2020 22:00 Results for this EDT procedure are i n the results section. documented in this encounter Results COVID-19 TEST [facility] PCR (02/22/2020 22:00 EDT) Specimen Swab - Entire nasopharynx (body structur e) Performing Organization Address City/State/ZIP Code Phon e Number [facility] [address] [place] [address] SERVICES COVID-19 TESTING (02/22/2020 22:00 EDT) COVID-19 rt-PCR Negative Negative [facility] Result Comment: [facility] This test has not been FDA c leared or approved. This test has been authorized by FDA under an EUA for use by authorized laboratories. This test has been authorized only for detection of nucleic acid fro SERVICES m 2019-nCoV, not for any oth er viruses or pathogens. This test is only authorized for the duration of the declaration that circumstances exist justifying the authorization of emergency use of in vitro d iagnostic tests for detectio n and/or diagnosis of 2019-nCoV under section 564(b)(1) of Act, 21 U.S.C ?? 360bbb-3(b) (1), unless the authorization is terminated or revoked sooner. Negative results do not prec lude 2019-nCoV infection and should not be used as the sole basis for treatment or other patient management decisions. Negative results must be combined with clinical observa tions, patient history, and epidemiological informatio n. Performed on the KeyCAPTCHAher Fusion instrument Performing Lab [facility] Specimen Swab Performing Organization Address City/State/ZIP Code Phon e Number [facility] [address] [place] [address] SERVICES documented in this encounter Visit Diagnoses Not on filedocumented in this encounter
[2022-01-19 12:59] LABS: HCT 43.1 % (40.0-50.0); HGB 14.4 g/dL (13.5-17.5); MCH 33.8 pg (27.0-33.0); MCHC 33.4 % (32.0-36.0); MCV 101 fL (80-95); MPV 9.6 fL (8.0-11.0); Platelet Count 204 10^3/uL (130-400); RBC 4.26 10^6/uL (4.36-5.78); RDW 13.1 % (11.8-14.1); RDW-SD 48.6 fL; WBC 7.58 10^3/uL (4.4-10.8)
[2022-01-19 13:03] LABS: ESR 10 mm/hr (0-20)
[2022-01-19 22:27] LABS: CRP, High Sensitivity 2.05 mg/L (See Note)
[2022-01-22 13:53] LABS: ANA Interpretation Negative (Negative)
== END 2022-01-19 00:47 | disposition home or self-care (01) ==
LOC: LOS 00:46
PROVIDERS: PCP Nurse Practitioner; Visit Provider Nurse Practitioner Family
DX: M25.59 Pain in other specified joint (principal)
CPT/HCPCS: 36415; 85027; 85652; 86141; 86038

== ENCOUNTER → 2022-02-01 09:02 | Outpatient (BNVA) | payer MEDICARE, MEDICAID, SELFPAY | PROVIDERS: PCP Nurse Practitioner; Referring Provider Nurse Practitioner; Visit Provider Surgery | DX: L02.416 Cutaneous abscess of left lower limb (principal); L40.0 Psoriasis vulgaris; R73.03 Prediabetes; N18.9 Chronic kidney disease, unspecified; E66.01 Morbid (severe) obesity due to excess calories; I10 Essential (primary) hypertension | CPT/HCPCS: 99213; 99241 ==

== ENCOUNTER 2023-03-07 02:31 | Outpatient (CLI) | payer MEDICARE, SELFPAY ==
[2023-03-07 17:22] LABS: ALT 27 U/L (16-63); AST 22 U/L (15-37); Albumin 3.8 g/dL (3.4-5.0); Alkaline Phosphatase 88 U/L (46-116); Anion Gap 11.2 mmol/L (3-11); BUN 22 mg/dL (7-18); Bilirubin, Total 0.6 mg/dL (0.2-1.0); CO2 20.8 mmol/L (21.0-32.0); CREATININE 1.6 mg/dL (0.70-1.30); Calcium 8.7 mg/dL (8.5-10.1); Calculated LDL 46 mg/dL (<100); Chloride 104 mmol/L (98-107); Cholesterol 133 mg/dL (<200); Estimated GFR 46.93 (mL/min/1.73m2); Glucose 107 mg/dL (74-106); HDL Cholesterol 27 mg/dL (40-60); Potassium 4.5 mmol/L (3.5-5.1); Sodium 136 mmol/L (136-145); Total Protein 7.1 g/dL (6.4-8.2); Triglyceride 303 mg/dL (<150)
[2023-03-09 09:30] LABS: HIV-1/2 Ag & Ab Screen Negative (Negative)
[2023-03-11 10:10] LABS: Hepatitis C Ab w Rflx HCV PCR Negative (Negative)
[2023-03-11 11:44] LABS: Lyme Ab w Rflx to Lyme Confirm Positive (Negative)
[2023-03-11 14:53] LABS: Lyme IgG Ab Negative (Negative); Lyme IgM Ab Negative (Negative)
[2023-03-11 15:24] LABS: Anaplasma phagocytophilum Negative (Negative); B. miyamotoi PCR Negative (Negative); Babesia divergens/MO-1 Negative (Negative); Babesia duncani Negative (Negative); Babesia microti Negative (Negative); Ehrlichia chaffeensis Negative (Negative); Ehrlichia ewingii/canis Negative (Negative); Ehrlichia muris eauclairensis Negative (Negative)
== END 2023-03-07 02:32 | disposition home or self-care (01) ==
LOC: LBO 02:31
PROVIDERS: PCP Nurse Practitioner Family; Visit Provider Nurse Practitioner Family
DX: Z11.4 Encounter for screening for human immunodeficiency virus [HIV] (principal); Z11.59 Encounter for screening for other viral diseases; E78.5 Hyperlipidemia, unspecified; M25.50 Pain in unspecified joint
CPT/HCPCS: 36415; 80053; 80061; 86617; 86803; 87389; 87798; 86618

== ENCOUNTER 2024-01-14 20:58 | Outpatient (REF) | payer MEDICARE, SELFPAY ==
[2024-01-14 14:21] LABS: ALT 28 U/L (16-63); AST 28 U/L (15-37); Albumin 3.9 g/dL (3.4-5.0); Alkaline Phosphatase 78 U/L (46-116); BUN 25 mg/dL (7-18); CREATININE 1.6 mg/dL (0.70-1.30); Calculated LDL 52 mg/dL (<100); Chloride 102 mmol/L (98-107); Cholesterol 143 mg/dL (<200); Estimated GFR 46.64 (mL/min/1.73m2); Glucose 135 mg/dL (74-106); HDL Cholesterol 33 mg/dL (40-60); Potassium 4.5 mmol/L (3.5-5.1); Sodium 138 mmol/L (136-145); Total Protein 7.1 g/dL (6.4-8.2); Triglyceride 292 mg/dL (<150)
== END 2024-01-14 20:59 | disposition home or self-care (01) ==
LOC: LBN 20:58
PROVIDERS: PCP Nurse Practitioner Family; Visit Provider Nurse Practitioner Family
DX: E78.5 Hyperlipidemia, unspecified (principal); R73.9 Hyperglycemia, unspecified; Z23 Encounter for immunization; Z00.00 Encounter for general adult medical examination without abnormal findings; N18.9 Chronic kidney disease, unspecified; R73.03 Prediabetes; I10 Essential (primary) hypertension
CPT/HCPCS: 80053; 80061

== ENCOUNTER 2024-05-18 12:43 | Emergency (ER) | payer MEDICARE, SELFPAY ==
[2024-05-18 12:47] VITALS: BP 164/88; PULSE 84; RESP 16; TEMP 36.9; O2SAT 94
--- NOTE | 2024-05-18 13:00 | DI.US_ITS ---
Exam(s) US LOWER EXTREMITY VENOUS RT EXAM: US LOWER EXTREMITY VENOUS RT CLINICAL HISTORY: pain and swelling TECHNIQUE: Grayscale, color, and doppler imaging of the deep venous system of the right lower extrem ity was performed. COMPARISON: No exams were available for comparison FINDINGS: There is no evidence of intraluminal thrombus and there is normal compression and augmentation demons trated within the common femoral vein, femoral vein, and popliteal vein. In the ipsilateral calf the interrogated veins also exhibit normal compression/ augmentation properti es. The ipsilateral saphenofemoral junction is patent. IMPRESSION: 1. No evidence of DVT in the right lower extremity. DATA REPOSITORY:
--- NOTE | 2024-05-18 13:10 | ED.GENADUL_ITS ---
Discharge Plan Disposition Patient Disposition: Home Condition: Stable Discharge Details Clinical Impression: Pain of right calf Primary Care Provider: Jeff Hickey ED Provider: Price Adame Home Meds and New Rx's Prescriptions: Continued lisinopril 40 mg tablet 40 mg PO DAILY Qty: 90 3RF latanoprost 0.005 % drops 1 drp ophthalmic (eye) QPM timolol 0.5 % drops 1 drp ophthalmic (eye) DAILY Refresh Contacts Drops 1 drp ophthalmic (eye) BID atorvastatin 80 mg tablet 80 mg PO QHS Qty: 90 3RF naproxen sodium [Aleve] 220 MG capsule 3 tab PO PRN PRN Discharge Instructions Additional Instructions: Your ultrasound did not show any blood clots or other concerning findings Follow-up with your primary care provider especially for symptoms continue within 1 to 2 weeks If you feel more ill or have new symptoms such as high fevers or difficulty urinating return to the emergency department for reevaluation HPI General Mode of arrival: ambulatory . Date/Time Provider Initiated Documentation: 05/18/24 12:44 . Limitations to Documentation: no limitations . Information obtained by: patient . History of Present Illness 68 year old M presents to the emergency department with the chief complaint of right calf pain, described as moderate, Patient reports no radiation. Patient started experiencing this day(s) (4) and it has been constant. No relieving factors improve symptom(s), No exacerbating factors reported . Patient notes other (lower back pain, shooting pain down back of right foot). Patient did receive the following treatments prior to arrival, NSAID Related Data Home Medications ?Medication ?Instructions ?Recorded ?Confirmed naproxen sodium 220 mg capsule 3 tab PO PRN PRN 04/27/17 05/18/24 (Aleve) carboxymethylcellulose sodium 1 drp ophthalmic (eye) BID 01/05/22 05/18/24 (Refresh Contacts eye drops) latanoprost 0.005 % eye drops 1 drp ophthalmic (eye) QPM 01/05/22 05/18/24 timolol 0.5 % eye drops 1 drp ophthalmic (eye) DAILY 01/05/22 05/18/24 atorvastatin 80 mg tablet 80 mg PO QHS #90 tabs 10/11/23 05/18/24 lisinopril 40 mg tablet 40 mg PO DAILY #90 tab-caps 01/14/24 05/18/24 Previous Rx's ?Medication ?Instructions ?Recorded atorvastatin 80 mg tablet 80 mg PO QHS #90 tabs 10/11/23 lisinopril 40 mg tablet 40 mg PO DAILY #90 tab-caps 01/14/24 Allergies Allergy/AdvReac Type Severity Reaction Status Date / Time pollen extracts Allergy Mild runny Verified 05/18/24 12:55 nose, watery eyes General Stated Complaint: Orthopedic CECY: 4 Review of Systems All systems reviewed & are unremarkable except as noted in HPI and below Constitutional Constitutional: Denies chills and Denies fever(s) Cardiovascular Cardiovascular: Denies chest pain and Denies dyspnea Respiratory Respiratory: Denies cough and Denies dyspnea Gastrointestinal Gastrointestinal: Denies abdominal pain, Denies nausea and Denies vomiting Musculoskeletal Musculoskeletal: Reports back pain Exam Const General: no acute distress Orientation: alert HENMT Head: normal to inspection Ears: external ears normal General nose exam: external nose normal Mouth: moist mucous membranes Eyes General: appearance normal, both eyes and all related structures Neck Neck: normal visual inspection Resp Effort & Inspection: normal respiratory effort and able to speak in complete sentences Cardio Rate: regular rate Neuro General: patient alert and patient oriented x3 Extrem General: no joint enlargement and pedal edema Psych Mental Status: mental status grossly normal Course Vital Signs Vital signs: Vital Signs Temperature 36.9 C 05/18/24 12:47 Pulse 84 05/18/24 12:47 Respiratory Rate 16 05/18/24 12:47 Blood Pressure 164/88 H 05/18/24 12:47 Pulse Oximetry 94 05/18/24 12:47 Temperature 36.9 C 05/18/24 12:47 Temperature Source Temporal Artery Scan 05/18/24 12:47 Pulse 84 05/18/24 12:47 Respiratory Rate 16 05/18/24 12:47 Blood Pressure 164/88 H 05/18/24 12:47 Blood Pressure Position Sitting 05/18/24 12:47 Pulse Oximetry 94 05/18/24 12:47 Oxygen Delivery Method Room Air 05/18/24 12:47 Oxygen Flow Rate 0 05/18/24 12:47 Pain Level 10 05/18/24 12:47 Medical Decision Making 68-year-old male with history of CKD, hypertension who comes in with a wound on his right upper calf and pain after he punctured it with an unknown object . He says that he noticed blood on his foot and noticed a puncture wound on his leg . He denies any fevers or other trauma. No falls. He went to urgent care and was referred here for evaluation. He is ambulatory on arrival. He has a small scab on the right medial portion of his calf without surrounding erythema. Is mildly tender in the area. There is no tunneling wound. Also notes that he has pain that he calls sciatic pain as he said this before for the last few days. He denies any difficulty urinating or changes in bowel habits. He says the pain starts in his lower back and goes down the right posterior leg and top of his foot. Does have some numbness on the superior portion of his right foot on exam. Cap refills intact. Both legs are swollen which he says is chronic and unchanged. Both of his knees are also swollen which she says is not new but he is due to see orthopedics next month. There is no erythema or warmth. He has no saddle anesthesia, denies any IV drug use or fevers. He has no findings on exam to suggest cauda equina or spinal epidural abscess so do not feel emergent MRI is indicated of his back. Given right calf pain on the right will obtain an ultrasound to evaluate for possible DVT though I suspect will be negative given his leg is the same size of the left. I did also offer to obtain x-rays to evaluate for possible foreign body, suspicion for this is low and he declines this at this time DVT negative patient is stable. I offered to refer him to see physical therapy he declined. He will follow-up with his PCP and return precautions Differential Diagnosis Differential Diagnosis: puncture wound, DVT, sciatica Quality:SDOH Health Related Social Needs: No Data to Display [facility] All Active Problems (Updated 05/18/24 @ 14:26 by Price Adame MD) Pain of right calf (Acute) Bilateral knee pain (Acute) with effusions Family history of autoimmune disorder (Acute) Arthralgia (Acute) Plaque psoriasis (Acute) Onychomycosis (Acute) Prediabetes (Acute) CKD (chronic kidney disease) (Acute) Morbid obesity (Chronic 08/26/13) Hyperlipidemia (Chronic 08/26/13) Essential hypertension (Chronic) This seems to be under good control. Chronic right-sided low back pain without sciatica (Acute 08/29/15) Medical History Infection of fingernail of left hand Diverticulitis of sigmoid colon Retroperitoneal abscess (06/14/17) Loculated pleural effusion (06/14/17) Intra-abdominal abscess (06/14/17) No treatment for this presently. History of tobacco use Family History Family history Diabetes CAD (coronary artery disease) Mother , age 83 Brain tumor Father , age 87 Asthma Sister No problems noted. Sister No problems noted. Sister No problems noted. Brother No problems noted. Daughter No problems noted. Daughter No problems noted. Maternal Grandfather , age 97 pneumonia No problems noted. Paternal Grandfather , age 78 blood clot No problems noted. Maternal Grandmother , age 98 No problems noted. Paternal Grandmother , age 67 blood clot No problems noted. Son No problems noted. Social History Smoking/Tobacco Use Status: Current every day Tobacco Type: cigarettes Years smoked: 56, cigars and smokeless tobacco Tobacco: How many years used: 56 Smokeless tobacco user: other (cigars) Quit status: not considering quitting Second Hand Exposure: Yes Smoking risk assessment performed?: Yes Alcohol Intake: current Alcohol Intake frequency: a few times a month Alcohol type: beer and hard liquor Drug use: Occasionally Caregiver/Support person: No Household members: family Housing: house Communication Needs: None Pets and animals: Yes Pets and animals: dog(s) Sexually active: Yes Do you think of yourself as: straight/heterosexual Current gender identity: male What is your relationship status?: How often do you talk on the phone with friends or family?: three or more times per week How often do you get together with friends or relatives?: three or more times per week How often do you attend confucianism or samaritan services?: decline to answer Do you belong to any clubs or organized social groups?: decline to answer Panel score (0-1 are the most socially isolated patients): 1 What type of physical activity do you participate in: walking Duration: 60-90 minutes/day Frequency: daily Sheree/Yarsanism: Baptist Special sheree needs: No Seatbelt use: sometimes Helmet use: No Drive 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
[2024-05-18 14:01] VITALS: BP 134/75; PULSE 72; RESP 16; O2SAT 97
== END 2024-05-18 14:31 | disposition home or self-care (01) ==
PROVIDERS: Emergency Provider Emergency Medicine; PCP Nurse Practitioner Family
DX: M79.661 Pain in right lower leg (principal)
CPT/HCPCS: 99284; 93971; 99283

== ENCOUNTER 2024-06-19 15:07 | Emergency (ER) | payer MEDICARE, MEDICAID, SELFPAY ==
[2024-06-19] VITALS (82 sets, daily range): BP systolic 62–235; BP diastolic 12–211; PULSE 26–216; RESP 12–36; TEMP 35.9–37.4; O2SAT 63–98
--- NOTE | 2024-06-19 15:00 | RT.EKG_ITS ---
APPROVED REPORT Exam: Resting ECG Reason for Exam: bradycardia Patient Location: E HR:34 bpm ECG Measurements Heart Rate 34 AXIS MS [id number] P [id number] QRSd 97 QRS -36 QT 488 T 3 QTc 370 Conclusion Junctional rhythm...absent P waves, slow V-rate Inferior infarct, old...Q >35mS, II III aVF Borderline ST elevation, anterior leads...ST >0.15mV in V1-V4 No STEMI
--- NOTE | 2024-06-19 15:00 | DI.RAD_ITS ---
Exam(s) XR PORTABLE CHEST AP EXAM: XR PORTABLE CHEST AP CLINICAL HISTORY: dyspnea, brdycardi. TECHNIQUE: 2D digital imaging was performed. COMPARISON: CT CT ABDOMEN PELVIS WO from 02/22/2020 FINDINGS: Single AP portable view. Cardiac pad in place Heart size upper normal-minimally prominent. The mediastinum is not widened. Right lung is clear. There is slightly increased markings in the left lower lobe retrocardiac region . However, these appear to been present on prior CT scan of 2019 and most probably just represents s carring. Left costophrenic angle is blunted which may indicate small left pleural effusion although this is in the peripheral aspect of the field of view and may just be related to technical factors. IMPRESSION: As above. Recommend nonportable PA and lateral views when clinically possible. DATA REPOSITORY: RADIATION DOSE DELIVERED:
--- NOTE | 2024-06-19 15:07 | W.ED.GENAD ---
Discharge Plan Disposition Patient Disposition: Transfer-Acute Inpatient Care Specific Acute Inpt Facility: [facility] Discharge Details Clinical Impression: Renal failure, acute, Anuria, Myocardial injury, Acute hypotension, Shock, Acute hyperkalemia Primary Care Provider: Jeff Hickey ED Provider: Jorge Rey Home Meds and New Rx's Prescriptions: No Action lisinopril 40 mg tablet 40 mg PO DAILY Qty: 90 3RF methylprednisolone [Medrol (Marty)] 4 mg tablets,dose pack See Rx Instructions PO PER PKG DIR Qty: 21 0RF Rx Instructions: PO PER PKG DIR for 6 days latanoprost 0.005 % drops 1 drp ophthalmic (eye) QPM timolol 0.5 % drops 1 drp ophthalmic (eye) DAILY Refresh Contacts Drops 1 drp ophthalmic (eye) BID atorvastatin 80 mg tablet 80 mg PO QHS Qty: 90 3RF naproxen sodium [Aleve] 220 MG capsule 3 tab PO PRN PRN Discharge Data Discharge Date/Time-TO BE ENTERED AT DEPARTURE: 06/19/24 20:04 HPI General Mode of arrival: ambulatory. Date/Time Provider Initiated Documentation: 06/19/24 15:33. Limitations to Documentation: no limitations. Information obtained by: patient. History of Present Illness 68 year old M presents to the emergency department with the chief complaint of right calf pain, described as moderate, Patient reports no radiation. Patient started experiencing this day(s) (4) and it has been constant. No relieving factors improve symptom(s), No exacerbating factors reported . Patient notes other (lower back pain, shooting pain down back of right foot). Patient did receive the following treatments prior to arrival, NSAID HPI Narrative: MDM This is an ill-appearing hypotensive and bradycardic 68-year-old male with broad differential to shock for which he will receive 2 L of IV fluids and norepinephrine peripherally given lack of response to 1 mg prehospital atropine and 0.5 mg atropine upon arrival. Patient does not take 2-3 Aleve tablets multiple times a day as needed. He cannot specify the exact dose but it certainly possible that he could have developed acute renal failure causing decreased renal perfusion shock. He is not on any AV holly manpreet to suggest increased risk for brash syndrome though he certainly could have hyperkalemia. Has not been outside to suggest hypothermia. Will check a TSH to assess for hypothyroidism. He is not having any chest pain to suggest inferior [place]. It is possible that he had a silent [place] leading to decreased renal perfusion. Will check troponins. He is not altered to suggest increased ICP. Will cover for sepsis with cefepime draw 2 sets of blood cultures. No black or bloody stools to suggest acute blood loss anemia patient is not anticoagulated. No chest pain to suggest aortic dissection. Patient does have persistent back pain so it is not reasonable to scan him for dissection however he is too unstable at this point in time. I considered PE however the patient is not hypoxic nor tachycardic so I did not send a D-dimer. Will obtain labs increase his pressure and reassess. 6:33 PM Patient had multiple significant lab derangements. Notably he had myocardial injury. Given prior presentation of retroperitoneal bleed with hypotension now requiring multiple pressors I felt that the risks of heparinization outweigh the benefits so elected to hold heparin. I was concerned about the patient's ability to swallow so I did not treat him with aspirin. Patient potassium returned at 6.7 mmol/L. Reassuring TSH. Coverage for sepsis. His creatinine barely improved and is still 10.5. His BUN is 91. It 47 cc on bladder scan. Will initiate insulin 5 units and 250 cc of D10. He also received 2 g of magnesium and 2 g of calcium gluconate. He has been accepted by Dr. Gerardo PETERSON flu RSV negative. To [place] at [facility] [place] Unfortunately helicopter transport is not available. I updated patient and family. He was ammenable to transfer but would not want central access and declines pacemaker. He reports that he would consent for dialysis. His transfer is certainly not without significant risks however given that he is willing to try dialysis I feel that the risks of the transfer outweigh the benefits. He has anuric renal failure. He is being externally paced with intermittent caputure. Patient has 3 points of IV access. I signed him out at bedside to spring former Jeronimo. Diagnostic interpretations performed by me: Per my independent interpretation chest x-ray shows: No acute cardiopulmonary process Per my independent interpretation EKG shows: Junctional rhythm no ST segment abnormalities. A-V dissociation. ]Medications: See above HPI This is a 68-year-old male history of hypertension hyperlipidemia morbid obesity arrived to the emergency department via EMS in the setting of generalized weakness for the past several days. He endorses some shortness of breath with walking. He received 1 mg prehospital atropine and a nebulizer. He denies hematuria. He does take Aleve 2-3 every several hours. He denies nausea vomiting chest pain dysuria hematuria shortness of breath. Exam General: [id number] in no acute distress speaking in complete sentences. Head: Normocephalic, atraumatic. Eye: Extraocular eye movements intact. No conjunctival injection. No scleral icterus. Ear, nose, mouth, throat: Grossly normal inspection. Normal voice, handling secretions normally. Neck: Trachea midline. Cardiovascular: Well-perfused distal extremities. Bradycardic. Back: Not inspected due to instability of patient. Respiratory: Nonlabored respiration. Decreased breath sounds bilateral bases. Gastrointestinal: Nondistended abdomen. Soft. Nontender. Musculoskeletal: No significant lower extremity edema. Moving all 4 extremities spontaneously. Skin: Normal for age and race, grossly normal temperature and turgor. No acute rash. Neurologic: Alert and appropriate, no apparent acute deficits. GCS 15. Related Data Home Medications ?Medication ?Instructions ?Recorded ?Confirmed naproxen sodium 220 mg capsule 3 tab PO PRN PRN 04/27/17 05/22/24 (Aleve) carboxymethylcellulose sodium 1 drp ophthalmic (eye) BID 01/05/22 05/22/24 (Refresh Contacts eye drops) latanoprost 0.005 % eye drops 1 drp ophthalmic (eye) QPM 01/05/22 05/22/24 timolol 0.5 % eye drops 1 drp ophthalmic (eye) DAILY 01/05/22 05/22/24 atorvastatin 80 mg tablet 80 mg PO QHS #90 tabs 10/11/23 05/22/24 lisinopril 40 mg tablet 40 mg PO DAILY #90 tab-caps 01/14/24 05/22/24 methylprednisolone 4 mg tablets in See Rx Instructions PO PER PKG DIR 05/22/24 05/22/24 a dose pack (Medrol (Marty)) #21 dose pk Previous Rx's ?Medication ?Instructions ?Recorded atorvastatin 80 mg tablet 80 mg PO QHS #90 tabs 10/11/23 lisinopril 40 mg tablet 40 mg PO DAILY #90 tab-caps 01/14/24 methylprednisolone 4 mg tablets in See Rx Instructions PO PER PKG DIR 05/22/24 a dose pack (Medrol (Marty)) #21 dose pk Allergies Allergy/AdvReac Type Severity Reaction Status Date / Time pollen extracts Allergy Mild runny Verified 05/22/24 11:03 nose, watery eyes General Stated Complaint: Orthopedic CECY: 4 Medical Decision Making Quality:SDOH Health Related Social Needs: No Data to Display Critical Care Time Critical Care Time Critical Care Time: Yes Total Critical Care Time: 60 Attestation: Hypotension bradycardia PFSH All Active Problems (Updated 06/22/24 @ 15:52 by Jorge Rey MD) Acute hyperkalemia (Acute) Shock (Acute) Acute hypotension (Acute) Myocardial injury (Acute) Anuria (Acute) Renal failure, acute (Acute) Sciatica (Acute) Pain of right calf (Acute) Bilateral knee pain (Acute) with effusions Family history of autoimmune disorder (Acute) Arthralgia (Acute) Plaque psoriasis (Acute) Onychomycosis (Acute) Prediabetes (Acute) CKD (chronic kidney disease) (Acute) Morbid obesity (Chronic 08/26/13) Hyperlipidemia (Chronic 08/26/13) Essential hypertension (Chronic) This seems to be under good control. Chronic right-sided low back pain without sciatica (Acute 08/29/15) Medical History Infection of fingernail of left hand Diverticulitis of sigmoid colon Retroperitoneal abscess (06/14/17) Loculated pleural effusion (06/14/17) Intra-abdominal abscess (06/14/17) No treatment for this presently. History of tobacco use Family History Family history Diabetes CAD (coronary artery disease) Mother , age 83 Brain tumor Father , age 87 Asthma Sister No problems noted. Sister No problems noted. Sister No problems noted. Brother No problems noted. Daughter No problems noted. Daughter No problems noted. Maternal Grandfather , age 97 pneumonia No problems noted. Paternal Grandfather , age 78 blood clot No problems noted. Maternal Grandmother , age 98 No problems noted. Paternal Grandmother , age 67 blood clot No problems noted. Son No problems noted. Social History Smoking/Tobacco Use Status: Current every day Tobacco Type: cigarettes Years smoked: 56, cigars and smokeless tobacco Tobacco: How many years used: 56 Smokeless tobacco user: other (cigars) Quit status: not considering quitting Second Hand Exposure: Yes Smoking risk assessment performed?: Yes Alcohol Intake: current Alcohol Intake frequency: a few times a month Alcohol type: beer and hard liquor Drug use: Occasionally Caregiver/Support person: No Household members: family Housing: house Communication Needs: None Pets and animals: Yes Pets and animals: dog(s) Sexually active: Yes Do you think of yourself as: straight/heterosexual Current gender identity: male What is your relationship status?: How often do you talk on the phone with friends or family?: three or more times per week How often do you get together with friends or relatives?: three or more times per week How often do you attend hinduism or rastafari services?: decline to answer Do you belong to any clubs or organized social groups?: decline to answer Panel score (0-1 are the most socially isolated patients): 1 What type of physical activity do you participate in: walking Duration: 60-90 minutes/day Frequency: daily Sheree/Baptist: Jew Special sheree needs: No Seatbelt use: sometimes Helmet use: No Drive intox or ride w/intox 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 No B-lines bilaterally. Unable to obtain apical four-chamber view secondary to patient discomfort. Exam complete
[2024-06-19] MEDS: Norepinephrine in D5W 8 MG/250 ML BAG 28.125 MG IV (15:17)
[2024-06-19] MEDS: Atropine 1 MG/10 ML SYRINGE 0.5 MG IVP (15:18)
[2024-06-19 15:27] LABS: Abs Immature Grans 0.13 10^3/uL (0.0-0.06); Absolute Basophil Count 0.01 10^3/uL (0.0-0.2); Absolute Eosinophil Count 0.01 10^3/uL (0.0-0.7); Absolute Monocyte Count 0.88 10^3/uL (0.1-0.8); Basophils % 0.1 %; Eosinophils % 0.1 %; HCT 38.8 % (40.0-50.0); HGB 12.4 g/dL (13.5-17.5); Immature Grans % 0.9 %; Lymphocytes % 17.3 %; MCH 33.2 pg (27.0-33.0); MCV 104 fL (80-95); MPV 10.6 fL (8.0-11.0); Monocytes % 6.4 %; Neutrophils % 75.2 %; Platelet Count 243 10^3/uL (130-400); RBC 3.74 10^6/uL (4.36-5.78); RDW 14.1 % (11.8-14.1); RDW-SD 54.5 fL; WBC 13.72 10^3/uL (4.4-10.8)
[2024-06-19 15:29] LABS: BE (Venous) -15 mmol/L (-2-3); HCO3 (Venous) 13 mmol/L (23-28); O2 Sat (Venous) 71 %; TCO2 (Venous) 12 mmol/L (24-29); pCO2 (Venous) 33 mmHg (41-51); pO2 (Venous) 46 mmHg
[2024-06-19 15:31] LABS: Absolute Lymphocyte Count 2.37 10^3/uL (1.2-3.4); Absolute Neutrophil Count 10.32 10^3/uL (1.2-6.7); Lactate 6.9 mmol/L (<or=2.0)
[2024-06-19 15:57] LABS: ALT 21 U/L (16-63); AST 17 U/L (15-37); Albumin 3.5 g/dL (3.4-5.0); Alkaline Phosphatase 73 U/L (46-116); Anion Gap 18.8 mmol/L (3-11); Bilirubin, Total 1.07 mg/dL (0.2-1.0); CO2 15.2 mmol/L (21.0-32.0); Calcium 9.3 mg/dL (8.5-10.1); Chloride 99 mmol/L (98-107); Creatine Kinase 145 U/L (39-308); Estimated GFR 4.61 (mL/min/1.73m2); Glucose 171 mg/dL (74-106); Lipase 33 U/L (<78); Magnesium 2.3 mg/dL (1.8-2.4); NT-proBNP 7697 pg/mL (<300); Potassium 5.4 mmol/L (3.5-5.1); Sodium 133 mmol/L (136-145)
[2024-06-19] MEDS: CEFEPIME 2 GM in Normal Saline 100 ML IVPB (16:00)
[2024-06-19 16:02] LABS: ETHANOL BLOOD < 3.0 mg/dL (<10)
[2024-06-19 16:03] LABS: BUN 95 mg/dL (7-18); Troponin I 6861 ng/L (<or=76)
[2024-06-19 16:14] LABS: Salicylate 3.3 mg/dL (<2.8)
[2024-06-19 16:15] LABS: Acetaminophen < 2 ug/mL (10-30)
--- NOTE | 2024-06-19 16:15 | RT.EKG_ITS ---
APPROVED REPORT Exam: Resting ECG Reason for Exam: karyna Patient Location: E HR:36 bpm ECG Measurements Heart Rate 36 AXIS MT [id number] P [id number] QRSd 100 QRS -33 QT 487 T 12 QTc 375 Conclusion Junctional rhythm...absent P waves, slow V-rate Inferior infarct, old...Q >35mS, II III aVF No STEMI
[2024-06-19] MEDS: Calcium Gluconate 4.65 MEQ/10 ML VIAL 4.65 MG IVP (16:17)
[2024-06-19] MEDS: fentaNYL 100 MCG/2 ML VIAL 75 MCG IVP ×2 (16:17→19:30)
[2024-06-19 16:18] LABS: COVID-19 PCR Negative (Negative); Influenza A PCR Negative (Negative); Influenza B PCR Negative (Negative); RSV PCR Negative (Negative)
[2024-06-19] MEDS: MAGNESIUM SULFATE 2 GM/50 ML BAG IVINF (16:18)
[2024-06-19] MEDS: Lidocaine 2% Jelly 11 ML SYR UR (16:20)
[2024-06-19 16:24] LABS: Source Nasopharynx
[2024-06-19 16:34] LABS: TSH (W/Ref FT4) 3.67 uIU/mL (0.36-3.74)
[2024-06-19] MEDS: Sodium Bicarbonate 50 MEQ/50 ML SYR (17:30)
[2024-06-19 17:37] LABS: Troponin I 6495 ng/L (<or=76)
[2024-06-19] MEDS: fentaNYL 100 MCG/2 ML VIAL 50 MCG IVP (17:54)
[2024-06-19 18:04] LABS: BE (Venous) -13 mmol/L (-2-3); HCO3 (Venous) 15 mmol/L (23-28); O2 Sat (Venous) 55 %; TCO2 (Venous) 14 mmol/L (24-29); pCO2 (Venous) 36 mmHg (41-51); pH (Venous) 7.23 (7.31-7.41); pO2 (Venous) 35 mmHg
[2024-06-19 18:09] LABS: Lactate 4.8 mmol/L (<or=2.0)
[2024-06-19 18:21] LABS: Anion Gap 14.8 mmol/L (3-11); CO2 17.2 mmol/L (21.0-32.0); Calcium 9.1 mg/dL (8.5-10.1); Chloride 101 mmol/L (98-107); Estimated GFR 4.88 (mL/min/1.73m2); Glucose 148 mg/dL (74-106); Sodium 133 mmol/L (136-145)
[2024-06-19 18:23] LABS: BUN 91 mg/dL (7-18); CREATININE 10.5 mg/dL (0.70-1.30); Potassium 6.7 mmol/L (3.5-5.1)
[2024-06-19] MEDS: Normal Saline 1,000 ML 1000 ML IV (18:30)
[2024-06-19 18:33] LABS: Troponin I 6015 ng/L (<or=76)
[2024-06-19] MEDS: Insulin REGULAR-Human 100 UNITS/ML UNIT IV ×2 (18:45→19:00)
[2024-06-19] MEDS: Sodium Bicarbonate 50 MEQ/50 ML SYR IVP (18:50)
[2024-06-19] MEDS: DEXTROSE 10%-WATER 500 ML 250 ML IV (19:04)
[2024-06-19] MEDS: Midazolam 2 MG/2 ML VIAL 1 MG IVP ×2 (19:15→19:25)
--- NOTE | 2024-06-19 21:58 | NUR.NOTE ---
Nursing Note: unable to collect urine sample D/T patient being anuric
== END 2024-06-19 20:04 | disposition short-term general hospital (02) ==
LOC: ER 17:30
PROVIDERS: Emergency Provider Emergency Medicine; PCP Nurse Practitioner Family
DX: I49.9 Cardiac arrhythmia, unspecified (principal); R94.31 Abnormal electrocardiogram [ECG] [EKG]; I10 Essential (primary) hypertension; E78.5 Hyperlipidemia, unspecified; E66.01 Morbid (severe) obesity due to excess calories; F17.290 Nicotine dependence, other tobacco product, uncomplicated; Z79.899 Other long term (current) drug therapy
CPT/HCPCS: 36415; 80048; 80053; 82550; 82805; 83690; 86850; 86900; 86901; 87040; 87637; 93005; 93308; 96365; 96366; 96367; 96368; 96375; 96376; 99285; 71045; 80320; 80329; 83605; 83735; 83880; 84443; 84484; 85025; 93010; J0171; J0461; J0612; J0692; J1815; J2250; J3010; J3475